=== PATIENT | male | born 1955 | race Caucasian/White ===

== ENCOUNTER 2020-05-07 13:10 | Outpatient (RCR) | payer MEDICAID, SELFPAY | END 2020-05-28 14:48 | disposition home or self-care (01) | LOC: HO.WCC 13:10 | PROVIDERS: Visit Provider Surgery | DX: I87.311 Chronic venous hypertension (idiopathic) with ulcer of right lower extremity (principal); L97.812 Non-pressure chronic ulcer of other part of right lower leg with fat layer exposed; L97.512 Non-pressure chronic ulcer of other part of right foot with fat layer exposed; L03.115 Cellulitis of right lower limb; F14.90 Cocaine use, unspecified, uncomplicated; F11.10 Opioid abuse, uncomplicated; F17.210 Nicotine dependence, cigarettes, uncomplicated | CPT/HCPCS: 99215 ==

== ENCOUNTER 2020-06-24 22:30 | Inpatient (IN) | payer MEDICAID, SELFPAY ==
[2020-06-24 22:33] VITALS: BP 145/71; PULSE 100; RESP 16; TEMP 37; O2SAT 98; BMI 26.6
[2020-06-25] VITALS (7 sets, daily range): BP systolic 109–141; BP diastolic 53–77; PULSE 68–80; RESP 14–20; TEMP 36.8–37.6; O2SAT 95–100
--- NOTE | 2020-06-25 00:42 | XR_ITS ---
EXAMINATION: XR TIBIA AND FIBULA, RIGHT CLINICAL INFORMATION: Skin ulcer COMPARISON: 02/28/2020 TECHNIQUE: AP and lateral views of the right tibia and fibula were obtained. FINDINGS: Osseous alignment is anatomic. No acute fracture is seen. Posterior calcaneal spur is noted. There is subcutaneous edema/reticulation throughout the lower leg. There is suggestion of a skin defect anteriorly at the level of the mid to distal tibia. XR/XR tibia fibula RT 2V IMPRESSION: No acute osseous findings. Soft tissue edema of the lower leg. Suggestion of skin ulceration anteriorly at the level of the mid to distal tibia.
--- NOTE | 2020-06-25 01:09 | ED.EXTPRO ---
HPI - Extremity Problem General Chief complaint: Wound/Laceration Stated complaint: ?Foot infection Time Seen by Provider: 06/25/20 00:42 Source: patient Mode of arrival: ambulatory Limitations: no limitations History of Present Illness HPI Narrative: This is a 64-year-old male who presents with chronic right lower extremity swelling with ulcer that he states was evaluated at [facility] today and was instructed to be further evaluated in the emergency department. Patient states that he is IVDA but denies any diabetes. Otherwise, he denies fevers, chills, shortness of breath, chest pain / palpitations, GI symptoms, or symptoms. In addition, patient states he was seen at [facility] last week and admitted for this problem but signed out AMA due to inability to get a methadone prescription. Related Data Home Medications Medication Instructions Recorded Confirmed fluoxetine [Prozac] 10 mg PO DAILY 06/25/20 06/25/20 Allergies Allergy/AdvReac Type Severity Reaction Status Date / Time trazodone [TRAZODONE] Allergy Intermediate RESTLESS Verified 06/25/20 05:20 LEGS trazadone Allergy Unknown leg spasms Uncoded 06/25/20 05:20 Review of Systems Review of Systems: Pertinent positives and negatives as stated in HPI 10 point review systems is otherwise negative. PMFSH Past Medical History Source: nursing notes reviewed Medical History Cirrhosis Depression Edema Heart murmur Social History Social History Alcohol intake: never Smoking Status: Never smoker Use of substances other than those prescribed or required for medical reasons: Yes Substance Use Type: Heroin Advance Directives: No Advance Directives Information Provided: No Physical Exam Vital Signs: Vital Signs: Last Vital Signs Temp 98.6 F 06/25/20 05:17 Pulse 73 06/25/20 05:17 Resp 14 06/25/20 05:17 BP 141/77 H 06/25/20 05:17 Pulse Ox 100 06/25/20 05:17 Body Mass Index 26.6 VITAL SIGNS: Reviewed. GENERAL: Well developed, well nourished, in no acute distress. HEAD: Normocephalic/atraumatic, EYES: PERRLA, EOMI intact without pain, no nystagmus/pallor/icterus noted EARS: Ext canals without abnormality, TMs non-bulging and non-erythematous NOSE: Nares patent bilateral OROPHARYNX: no oral lesions noted, posterior pharynx clear and non-erythematous without noted tonsillar enlargement/erythema/exudates NECK: Supple, no adenopathy LUNGS: Normal breath sounds. No adventitious sounds or accessory muscle use. SpO2<98> CARDIOVASCULAR: Regular rate and rhythm without noted murmurs, no JVD ABDOMEN: Soft, non-tender, non-distended with bowel sounds. No rigidity. No guarding. No palpable masses or hernias noted MUSCULOSKELETAL: No tenderness, deformities, or effusions noted on gross inspection. EXTREMITIES: No cyanosis, clubbing or edema;RLE: edematous and swollen leg with discoloration and ulcerations along the lower half that are oozing to include with blood and nonpitting edema appearance and palpation concerning for possible gangrenous features. SKIN: Inspection of the skin reveals no rashes, ulcerations, jaundice, pallor, or petechiae. NEUROLOGIC: Alert and oriented x 4. Strength and sensation to light touch were grossly intact x 4. Course Course Course Narrative: This is a 64-year-old male with history and clinical presentation consistent with venous stasis ulcer and concerning features for progression to possible osteo versus gangrenous. On review of all laboratory investigations there is no evidence of systemic infection, however blood cultures are still pending. Patient has a chronically stable anemia and urinalysis is without acute findings. Lactic acid - 1.0. extremity x-ray negative for evidence soft tissue air and no gross indication of bony involvement. Although no objective evidence of systemic infection clinically this right lower extremity is unlikely to improve without IV antibiotics and dual antibiotics were ordered here in the emergency department and this case was discussed with the inpatient hospitalist who is agreeable for admission as cellulitis with gangrenous features. MDM - Extremity (Nontraumatic) Lab Data Result diagrams: 06/25/20 01:16 06/25/20 02:23 Labs: Lab Results 06/25/20 06/25/20 06/25/20 Range/Units 01:16 01:16 01:16 WBC 9.1 (4.8-10.8) X10*3/uL RBC 3.72 L (4.60-5.80) X10*6/uL Hgb 9.7 L (14.0-18.0) g/dl Hct 30.6 L (42-52) % MCV 82.3 (80-98) fL MCH 26.1 L (27.0-33.0) pg MCHC 31.7 (31.0-36.0) g/dl RDW 15.4 (11.0-16.0) % Plt Count 191 (160-400) X10*3/uL MPV 10.2 (9.4-12.4) fL Immature Gran % (Auto) 0.3 (0.0-0.4) % Neut % (Auto) 61.3 (45-73) % Lymph % (Auto) 18.1 L (20-40) % [place] % (Auto) 14.1 H (2-11) % Eos % (Auto) 5.7 H (0-4) % Baso % (Auto) 0.5 (0-2) % Lymph # (Auto) 1.7 (1.2-4.9) X10*3/uL [place] # (Auto) 1.3 H (0.1-1.2) X10*3/uL Eos # (Auto) 0.5 H (0.0-0.4) X10*3/uL Baso # (Auto) 0.1 (0.0-0.2) X10*3/uL Abs Immat Gran (auto) 0.03 (0.00-0.03) X10*3/uL Absolute Neuts (auto) 5.6 (2.0-8.3) X10*3/uL Absolute Nucleated RBC 0.000 (0.0-0.012) X10*3/uL Nucleated RBC % (auto) 0.0 (0.0-0.2) /100WBC Sodium Cancelled Potassium Cancelled Chloride Cancelled Carbon Dioxide Cancelled Anion Gap Cancelled BUN Cancelled Creatinine Cancelled Estim Creat Clear Calc Cancelled Estimated GFR Cancelled Random Glucose Cancelled Lactic Acid 1.0 (0.5-2.0) mmol/L Calcium Cancelled Total Bilirubin Cancelled AST Cancelled ALT Cancelled Alkaline Phosphatase Cancelled Total Protein Cancelled Albumin Cancelled Urine Color Urine Appearance Urine pH (5.0-8.0) Ur Specific [place] (1.005-1.025) Urine Protein (NEG-TRACE) MG/DL Urine Glucose (UA) (NEG) MG/DL Urine Ketones (NEG) MG/DL Urine Blood (NEG) Urine Nitrite (NEG) Ur Leukocyte Esterase (NEG) 06/25/20 06/25/20 Range/Units 02:23 02:23 WBC (4.8-10.8) X10*3/uL RBC (4.60-5.80) X10*6/uL Hgb (14.0-18.0) g/dl Hct (42-52) % MCV (80-98) fL MCH (27.0-33.0) pg MCHC (31.0-36.0) g/dl RDW (11.0-16.0) % Plt Count (160-400) X10*3/uL MPV (9.4-12.4) fL Immature Gran % (Auto) (0.0-0.4) % Neut % (Auto) (45-73) % Lymph % (Auto) (20-40) % [place] % (Auto) (2-11) % Eos % (Auto) (0-4) % Baso % (Auto) (0-2) % Lymph # (Auto) (1.2-4.9) X10*3/uL [place] # (Auto) (0.1-1.2) X10*3/uL Eos # (Auto) (0.0-0.4) X10*3/uL Baso # (Auto) (0.0-0.2) X10*3/uL Abs Immat Gran (auto) (0.00-0.03) X10*3/uL Absolute Neuts (auto) (2.0-8.3) X10*3/uL Absolute Nucleated RBC (0.0-0.012) X10*3/uL Nucleated RBC % (auto) (0.0-0.2) /100WBC Sodium 135 Potassium 4.4 Chloride 102 Carbon Dioxide 26 Anion Gap 11 L BUN 17 H Creatinine 0.91 Estim Creat Clear Calc 83.0 Estimated GFR > 60 Random Glucose 92 Lactic Acid (0.5-2.0) mmol/L Calcium 8.1 L Total Bilirubin 0.7 AST 42 H ALT 26 Alkaline Phosphatase 111 Total Protein 7.3 Albumin 2.8 L Urine Color YELLOW Urine Appearance CLEAR Urine pH 6.0 (5.0-8.0) Ur Specific [place] 1.025 (1.005-1.025) Urine Protein NEG (NEG-TRACE) MG/DL Urine Glucose (UA) NEG (NEG) MG/DL Urine Ketones NEG (NEG) MG/DL Urine Blood NEG (NEG) Urine Nitrite NEG (NEG) Ur Leukocyte Esterase NEG (NEG) Discharge Plan Discharge Clinical Impression: Gangrene Venous stasis ulcer Qualifiers: Venous stasis ulcer site: other part of lower leg Varicose vein presence: without varicose veins Laterality: right Non-pressure ulcer stage: with fat layer exposed Qualified Code(s): I87.2 - Venous insufficiency (chronic) (peripheral) Patient Disposition: Admitted As Inpatient
[2020-06-25 01:24] LABS: Basophils Absolute Auto 0.1 X10*3/uL (0.0-0.2); Basophils Percent Auto 0.5 % (0-2); Eosinophils Absolute Auto 0.5 X10*3/uL (0.0-0.4); Eosinophils Percent Auto 5.7 % (0-4); Hematocrit 30.6 % (42-52); Hemoglobin 9.7 g/dl (14.0-18.0); Imm Gran Abs Auto 0.03 X10*3/uL (0.00-0.03); Imm Gran Pct Auto 0.3 % (0.0-0.4); Lymphocytes Absolute Auto 1.7 X10*3/uL (1.2-4.9); Lymphocytes Percent Auto 18.1 % (20-40); MANUAL DIFF FLAG NO; Mean Corpuscular HGB Conc 31.7 g/dl (31.0-36.0); Mean Corpuscular Hemoglobin 26.1 pg (27.0-33.0); Mean Corpuscular Volume 82.3 fL (80-98); Mean Platelet Volume 10.2 fL (9.4-12.4); Monocytes Absolute Auto 1.3 X10*3/uL (0.1-1.2); Monocytes Percent Auto 14.1 % (2-11); Neutrophils Absolute Auto 5.6 X10*3/uL (2.0-8.3); Neutrophils Percent Auto 61.3 % (45-73); Platelet Count 191 X10*3/uL (160-400); Red Blood Count 3.72 X10*6/uL (4.60-5.80); Red Cell Distribution Width 15.4 % (11.0-16.0); White Blood Count 9.1 X10*3/uL (4.8-10.8)
[2020-06-25 02:34] LABS: Appearance Urine CLEAR; Color Urine YELLOW; Glucose Urine UA NEG (NEG); Leukocyte Esterase Urine NEG (NEG); Nitrite Urine NEG (NEG); Specific Gravity - Urine 1.025 (1.005-1.025); Urine Blood NEG (NEG); Urine Ketones NEG (NEG); Urine Protein NEG (NEG-TRACE)
[2020-06-25 02:58] LABS: Alanine Aminotransferase 26 U/L (0-40); Albumin Level 2.8 g/dL (3.5-5.0); Alkaline Phosphatase 111 U/L (39-117); Anion Gap 11 (12-20); Aspartate Amino Transferase 42 U/L (5-37); Bilirubin Total 0.7 mg/dL (0.0-1.0); Blood Urea Nitrogen 17 mg/dL (9-16); Calcium 8.1 mg/dL (8.4-10.2); Carbon Dioxide 26 mmol/L (22-29); Chloride 102 mmol/L (96-108); Estimated Glomerular Filt Rate > 60; Glucose Random 92 mg/dL (60-115); Potassium 4.4 mmol/l (3.3-5.1); Sodium 135 mmol/L (135-145); Total Protein 7.3 g/dL (6.5-8.0)
[2020-06-25] MEDS: Piperacillin Sodium/Tazobactam 3.375 GM in 0.9 % Sodium Chloride 50 ML IV (05:18)
[2020-06-25] MEDS: vancomycin HCL 1,000 MG in 0.9 % Sodium Chloride 250 ML 270 MG IV (05:49)
[2020-06-25 06:11] LABS: COVID-19 Test Negative (Negative); IDNOW Serial# 9DD0AD1C
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
[2020-06-25 11:41] LABS: Erythrocyte Sedimentation Rate 44 MM/HR (0-15)
--- NOTE | 2020-06-25 14:17 | PC.NURSE ---
sergo tian at bedside earlier. pt awaiting lunch and admission
--- NOTE | 2020-06-25 15:00 | PM.EVENT ---
Event Note Date of Service: 06/25/20 Event Note: Full consult dictated. arterial testing ordered. Will follow with you
--- NOTE | 2020-06-25 15:19 | PC.NURSE ---
PT TO BATHROOM AND BACK VIA WC
--- NOTE | 2020-06-25 16:02 | PC.NURSE ---
called for report to s3
--- NOTE | 2020-06-25 16:16 | P.EN_ITS ---
Event Note Date of Service: 06/26/20 Event Note: Patient seen and examined. Patient has recent staff was years bacteremia [facility] and he left from the with his son of linezolid did not fill up: Currently coming in with neg ulcer? Patient says most likely chronic from last 2 years Accept from that patient denies any chest pain or shortness of breath or abdominal pain or fever or chills or cough or phlegm or urinary complaints Lab imaging reviewed physiio: Cvs: [id number], [id number] , no murmur res: clear to auscultation ,no rhonchii or wheezing abd: no rebound or guarding ,nt, bs present. ext right lower leg ulcer area seems mostly dry , no discharge ,rom intact neuro: axo3 , nonfocal. Assessment and plan: Patient had bacteremia recently: Will start the patient on IV Vanco Vanco trough Id and wound care evaluation In addition patient is a cocaine user: He is considering to start methadone, we will add psych evaluation for methadone use. Urine drug screen and EKG added is since patient is asking for methadone use
--- NOTE | 2020-06-25 16:25 | ECG_ITS ---
Test Reason : MED CLEARANCE Blood Pressure : / mmHG Vent. Rate : 065 BPM Atrial Rate : 065 BPM P-R Int : 172 ms QRS Dur : 086 ms QT Int : 436 ms P-R-T Axes : 041 020 020 degrees QTc Int : 453 ms Normal sinus rhythm Normal ECG When compared with ECG of 13-FEB-2019 11:52, Premature atrial complexes are no longer Present T wave amplitude has decreased in Anterior leads Referred By: Sanya Mendoza Electronically Signed By:JOE DURAN MD
--- NOTE | 2020-06-25 16:25 | PC.NURSE ---
report given to s3
--- NOTE | 2020-06-25 17:03 | P.CNPS_ITS ---
History of Present Illness Date of Service: 06/25/2020 Chief Complaint: RLE wound Reason for Consult: Addiction consult Requesting physician: Sanya Mendoza Discussed with referring provider: Yes Sources of Information: patient interviewed and chart reviewed HPI Narrative: Patient is a 64 year old male with opioid use disorder currently in ED awaiting medical admission for treatment of foot ulcer. Per patient report he was recently admitted to [facility] and left AMA due to opioid withdrawal sx. Pt seen in room 10 of main ED. Awake, alert, pleasant, engaged in interview. Pt reports currently using 3-4 bags of heroin QD IV, significant decrease from 3 bundles, which is what he was using before. Reports cocaine use as well. Denies any ETOH or benzodiazepine use . Pt verbalizing that he wishes to stay on methadone maintenance, reports suboxone has not been as efective in maintaining his recovery in the past. He has been a patient at [facility] and highest dose reported was 20-25mg daily Review of Systems Constitutional: Reports body ache(s) Gastrointestinal: Denies diarrhea, Denies loose stools, Reports nausea and Denies vomiting Psychiatric: Reports anxiety, Reports depression, Reports hopelessness and Denies suicidal ideation [facility] Medical History (Updated 06/25/20 @ 16:59 by Anita Moran CNP) Anemia Chronic cutaneous venous stasis ulcer Cirrhosis Depression Hepatitis C Polysubstance abuse Tobacco dependence Surgical History (Updated 06/25/20 @ 10:36 by JESSICA Nunez) H/O hernia repair Social History: Rents a room in a house. Has a dog named Maranda who he is very fond of and identifies her as his motivation to get better. Diagnostics Vital Signs (24Hr): Vital Signs - 24 hr 06/24/20 22:33 06/25/20 02:23 06/25/20 05:17 Temperature 98.6 F 98.6 F Pulse Rate 100 74 73 Respiratory Rate 16 16 14 Blood Pressure 145/71 H 139/73 141/77 H Pulse Oximetry 98 100 100 06/25/20 07:17 06/25/20 14:47 Temperature Pulse Rate 72 Respiratory Rate 18 16 Blood Pressure 113/66 Pulse Oximetry 97 Body Mass Index 26.6 Labs Results: 06/25/20 01:16 06/25/20 02:23 Labs: Laboratory Results - last 48 hr 06/25/20 06/25/2020 01:16 01:16 01:16 WBC 9.1 RBC 3.72 L Hgb 9.7 L Hct 30.6 L MCV 82.3 MCH 26.1 L MCHC 31.7 RDW 15.4 Plt Count 191 MPV 10.2 Immature Gran % (Auto) 0.3 Neut % (Auto) 61.3 Lymph % (Auto) 18.1 L Steele % (Auto) 14.1 H Eos % (Auto) 5.7 H Baso % (Auto) 0.5 Lymph # (Auto) 1.7 Steele # (Auto) 1.3 H Eos # (Auto) 0.5 H Baso # (Auto) 0.1 Abs Immat Gran (auto) 0.03 Absolute Neuts (auto) 5.6 Absolute Nucleated RBC 0.000 Nucleated RBC % (auto) 0.0 ESR Sodium Cancelled Potassium Cancelled Chloride Cancelled Carbon Dioxide Cancelled Anion Gap Cancelled BUN Cancelled Creatinine Cancelled Estim Creat Clear Calc Cancelled Estimated GFR Cancelled Random Glucose Cancelled Lactic Acid 1.0 Calcium Cancelled Total Bilirubin Cancelled AST Cancelled ALT Cancelled Alkaline Phosphatase Cancelled C-Reactive Protein Total Protein Cancelled Albumin Cancelled Urine Color Urine Appearance Urine pH Ur Specific Mohler Urine Protein Urine Glucose (UA) Urine Ketones Urine Blood Urine Nitrite Ur Leukocyte Esterase COVID-19 ([facility]) COVID-19 Clin Com 06/25/20 06/25/20 06/25/20 01:34 02:23 02:23 WBC RBC Hgb Hct MCV MCH MCHC RDW Plt Count MPV Immature Gran % (Auto) Neut % (Auto) Lymph % (Auto) Steele % (Auto) Eos % (Auto) Baso % (Auto) Lymph # (Auto) Steele # (Auto) Eos # (Auto) Baso # (Auto) Abs Immat Gran (auto) Absolute Neuts (auto) Absolute Nucleated RBC Nucleated RBC % (auto) ESR 44 H Sodium 135 Potassium 4.4 Chloride 102 Carbon Dioxide 26 Anion Gap 11 L BUN 17 H Creatinine 0.91 Estim Creat Clear Calc 83.0 Estimated GFR > 60 Random Glucose 92 Lactic Acid Calcium 8.1 L Total Bilirubin 0.7 AST 42 H ALT 26 Alkaline Phosphatase 111 C-Reactive Protein 2.80 H Total Protein 7.3 Albumin 2.8 L Urine Color YELLOW Urine Appearance CLEAR Urine pH 6.0 Ur Specific Mohler 1.025 Urine Protein NEG Urine Glucose (UA) NEG Urine Ketones NEG Urine Blood NEG Urine Nitrite NEG Ur Leukocyte Esterase NEG COVID-19 (JACQUE) COVID-19 Clin Com 06/25/20 05:52 WBC RBC Hgb Hct MCV MCH MCHC RDW Plt Count MPV Immature Gran % (Auto) Neut % (Auto) Lymph % (Auto) Steele % (Auto) Eos % (Auto) Baso % (Auto) Lymph # (Auto) Steele # (Auto) Eos # (Auto) Baso # (Auto) Abs Immat Gran (auto) Absolute Neuts (auto) Absolute Nucleated RBC Nucleated RBC % (auto) ESR Sodium Potassium Chloride Carbon Dioxide Anion Gap BUN Creatinine Estim Creat Clear Calc Estimated GFR Random Glucose Lactic Acid Calcium Total Bilirubin AST ALT Alkaline Phosphatase C-Reactive Protein Total Protein Albumin Urine Color Urine Appearance Urine pH Ur Specific Mohler Urine Protein Urine Glucose (UA) Urine Ketones Urine Blood Urine Nitrite Ur Leukocyte Esterase COVID-19 (JACQUE) Negative COVID-19 Clin Com See Note Imaging Radiology Impressions: ITS Impressions Tibia/Fibula X-Ray 06/25/20 00:42 IMPRESSION: No acute osseous findings. Soft tissue edema of the lower leg. Suggestion of skin ulceration anteriorly at the level of the mid to distal tibia. Mental Status Exam Mental Status Exam Patient Appearance: Appropriate Patient Orientation: Person, Place, Time and Situation Level of Consciousness: Awake Patient Behavior: Appropriate, Cooperative, Anxious and Crying Mood Description: Sad and Nervous Affect Description: Sad and Nervous Ability to Follow Directions: Excellent Speech Pattern: Clear Thought Process: Intact and Goal Oriented Thought Content: positive for Intact and positive for Logical Depressive Symptoms: Increased Anxiety, Hopelessness, Feelings of Guilt and Unhappiness Judgement: Fair Medications Medications Current Medications Generic Name Dose Route Start Last Admin Trade Name Freq PRN Reason Stop Dose Admin Pharmacy Consult 1 each 06/25/20 10:25 Consult Rx Vancomycin Dosing MISCELLANE DAILY PRN Consult order Allergies Allergies Allergy/AdvReac Type Severity Reaction Status Date / Time trazodone [TRAZODONE] Allergy Intermediate RESTLESS Verified 06/25/20 05:20 LEGS trazadone Allergy Unknown leg spasms Uncoded 06/25/20 05:20 Assessment & Plan Assessment & Plan (1) Opioid use disorder: Status: Acute Code(s): F11.99 - Opioid use, unspecified with unspecified opioid-induced disorder Recommendations: * Pt in mild withdrawal when seen by this teletypewriter operator. * EKG and UDS ordered. EKG reviewed, UDS to be completed * 20mg methadone ordered * Recovery Brim Buster to follow up tomorrow morning to begin process for OTP admission following discharge (based on H&P, appears will likely require SNF short term for IV Abx) Greater than 50% of the session was spent on counseling and/or coordination of care
[2020-06-25 17:06] LABS: Amphetamine Screen Urine Not Detected (Not Detect); Barbiturates, Urine Not Detected (Not Detect); Benzodiazepines Screen Urine Not Detected (Not Detect); Cannabinoid Screen Urine Not Detected (Not Detect); Cocaine Screen Urine POSITIVE (Not Detect); Opiate Screen Urine POSITIVE (Not Detect); Phencyclidine Screen Urine Not Detected (Not Detect)
[2020-06-25] MEDS: Enoxaparin Sodium 40 MG/0.4 ML SYRINGE SUBCUT (18:05)
[2020-06-25] MEDS: 0.9 % Sodium Chloride Flush 3 ML SYRINGE IVFLUSH ×2 (18:24→23:14)
--- NOTE | 2020-06-25 22:33 | CONS_ITS ---
DATE OF SERVICE: 06/25/2020 REASON FOR CONSULTATION: Nonhealing chronic right lower extremity ulcer. HISTORY OF PRESENT ILLNESS: This is a 64-year-old gentleman, who was originally treated at [facility] from June 12 through the for a treatment MRSA of the right lower extremity and wound care. Initial plan was to have him discharged for treatment of IV vancomycin at a facility, but the patient subsequently left AMA. He was given a prescription for linezolid, it was too expensive for him to obtain. He was subsequently at home reported that his leg was getting worse, came back to our institution. He now presents to us for vascular evaluation. PAST MEDICAL HISTORY: Includes chronic nonhealing right lower extremity ulcer, cirrhosis, depression, hep C, and anemia. PAST SURGICAL HISTORY: None significant. MEDICATIONS: Medication list was reviewed per nursing MAR. ALLERGIES: HE HAS NO KNOWN DRUG ALLERGIES. SOCIAL HISTORY: Smokes. He reports 2 cigarettes a day, I suspect it is significantly more than that; nondrinker, but he does admit to polysubstance abuse including crack cocaine and heroin. FAMILY HISTORY: No history of advanced coronary artery disease or peripheral vascular disease. REVIEW OF SYSTEMS: 13-point review was performed, at the current time denies any headache, dizziness, nausea, vomiting, diarrhea, or shortness of breath. He notes some mild discomfort of the right lower extremity, but no significant pain. Rest of the 13-point review of systems was essentially negative. PHYSICAL EXAMINATION: VITAL SIGNS: Temperature of 98.6, pulse of 73, respiration rate of 18, blood pressure of 141/77, and saturating 100%. HEAD AND NECK: Demonstrates no bruits. CHEST: Moving air bilaterally. CARDIAC: Positive S1-S2. ABDOMEN: Soft. EXTREMITIES: Upper extremities have good radial and ulnar pulses. Lower extremities, I am able to appreciate a left lower extremity DP pulse. Right side, I was unable to appreciate a DP or PT pulse. NEUROLOGIC: II through XII grossly intact. PSYCH: Mood and affect appear within normal limits. SKIN: Right pretibial ulceration, it is a large excoriated area encompassing the entire pretibial surface. PSYCH: Mood and affect appear within normal limits. LABORATORY DATA: Last white count of 9.1. Rest of the labs appear to be within normal limits. IMPRESSION: Nonhealing right lower extremity ulcer. Unclear what the true etiology of this is. He reports that it has something to do with his circulation. When directly asked whether he had seen a vascular surgeon before, he denied seeing anybody. He does report that this has been over 2 years. Due to the lack of palpable pulses on that right lower extremity, I have taken the liberty of ordering noninvasive arterial testing. At the current time, would recommend continued local wound care. In addition, we will follow up on arterial testing and will need close monitoring for withdrawal from polysubstance abuse. Thank you for allowing us to participate in his care. If you have any questions or concerns, please do not hesitate to contact us. MD BROOKE Garcia/ABUNDIO / [phone]
--- NOTE | 2020-06-26 | US_ITS ---
EXAMINATION: NONINVASIVE ASSESSMENT OF THE ARTERIES OF BOTH LOWER EXTREMITIES WITH PVR EXAM AND BILATERAL LOWER EXTREMITY DUPLEX CLINICAL INFORMATION: Right leg ulcer TECHNIQUE: duplex Doppler techniques with wave form analysis and measurement of velocities in the common femoral, profunda femoral, superficial femoral, popliteal and tibial arteries of the right lower extremity. The study was performed only at rest. Patient refused ankle-brachial indices exam. COMPARISON: None FINDINGS: a) AT REST: RIGHT LEG: .Right direct duplex Doppler findings: Vessels appear prominent suggestive questionable for arteria magna. No visible stenosis is seen. * Common femoral artery: 142 cm/s, Diastolic flow reversal: Yes * Superficial femoral artery (proximal, mid, distal): 160, 186 and 152 cm/s, Diastolic flow reversal: No * Popliteal artery: 178 cm/s, Diastolic flow reversal: No * Posterior tibial artery: 121 cm/s, Diastolic flow reversal: No The visualized profunda and peroneal arteries are patent. * US/US arterial duplex LE BI IMPRESSION: No evidence of significant stenosis. There is loss of triphasic flow distal to the common femoral artery.
[2020-06-26 03:31] VITALS: BP 106/51; PULSE 70; RESP 19; TEMP 37.1; O2SAT 96
[2020-06-26 06:10] LABS: MANUAL DIFF FLAG NO
[2020-06-26 06:15] LABS: Basophils Absolute Auto 0.1 X10*3/uL (0.0-0.2); Basophils Percent Auto 0.6 % (0-2); Eosinophils Absolute Auto 0.7 X10*3/uL (0.0-0.4); Eosinophils Percent Auto 6.7 % (0-4); Hematocrit 31.4 % (42-52); Hemoglobin 9.9 g/dl (14.0-18.0); Imm Gran Abs Auto 0.05 X10*3/uL (0.00-0.03); Imm Gran Pct Auto 0.5 % (0.0-0.4); Lymphocytes Absolute Auto 2.1 X10*3/uL (1.2-4.9); Lymphocytes Percent Auto 21.7 % (20-40); Mean Corpuscular HGB Conc 31.5 g/dl (31.0-36.0); Mean Corpuscular Hemoglobin 25.8 pg (27.0-33.0); Mean Corpuscular Volume 81.8 fL (80-98); Mean Platelet Volume 9.9 fL (9.4-12.4); Monocytes Absolute Auto 1.3 X10*3/uL (0.1-1.2); Neutrophils Absolute Auto 5.7 X10*3/uL (2.0-8.3); Neutrophils Percent Auto 57.5 % (45-73); Platelet Count 186 X10*3/uL (160-400); Red Blood Count 3.84 X10*6/uL (4.60-5.80); Red Cell Distribution Width 15.6 % (11.0-16.0); White Blood Count 9.9 X10*3/uL (4.8-10.8)
[2020-06-26 06:43] LABS: Anion Gap 9 (12-20); Blood Urea Nitrogen 20 mg/dL (9-16); Calcium 7.5 mg/dL (8.4-10.2); Carbon Dioxide 26 mmol/L (22-29); Chloride 107 mmol/L (96-108); Creatinine Clr Calc Pharmacy 87.9; Estimated Glomerular Filt Rate > 60; Glucose Random 106 mg/dL (60-115); Potassium 4.1 mmol/l (3.3-5.1); Sodium 138 mmol/L (135-145)
[2020-06-26 07:47] VITALS: BP 116/60; PULSE 73; RESP 17; TEMP 36.7; O2SAT 97
--- NOTE | 2020-06-26 09:08 | HO.VASCPN ---
Subjective Subjective Patient reports: no new complaints Interval history: Patient is hospital day 1 for nonhealing right lower extremity ulceration. He had no events overnight. States that he feels somewhat better. At the time of my assessment he was on his way down for arterial ultrasound. Physical Exam Vital Signs: Vital Signs: Last Vital Signs Temp 98.1 F 06/26/20 07:47 Pulse 73 06/26/20 07:47 Resp 17 06/26/20 07:47 BP 116/60 06/26/20 07:47 Pulse Ox 97 06/26/20 07:47 Body Mass Index 26.6 Const: General: cooperative, healthy appearing and no acute distress Orientation/consciousness: oriented to person, oriented to place and oriented to time HENMT: Head: Yes normal to inspection Neck: Carotids: no bruits Chest: Chest palpation & inspection: normal inspection of the chest Resp: Effort & Inspection: normal respiratory effort and able to speak in complete sentences Auscultation: clear to auscultation bilaterally Cardio: Rate: regular rate Heart sounds: S1 normal heart sound present and S2 normal heart sound present GI: Inspection: Yes normal to inspection Skin: General skin exam: no rashes or lesions noted Wounds: wounds noted (Right pretibial surface and calf, multiple open areas) Neuro: General: oriented to person, oriented to place, oriented to time and CN's II-XI intact bilaterally Extrem: General: Yes normal to inspection, Yes full ROM and Yes no clubbing, cyanosis or edema Psych: Appearance: grossly normal and well kempt Speech and movement: Normal speech and movement present Affect: normal affect Progress Note: A&P Assessment and plan (1) Venous stasis ulcer: Status: Acute Assessment and Plan: Unclear if this is truly venous stasis or multifactorial. Await arterial testing. At the current time would continue with local wound care, and antibiotic regimen of vancomycin. We will monitor his status with you. Thank you for allowing us to assist in his care. If there are any questions or concerns please do not hesitate to contact us. Fall Risk Details Current Medications: Current Medications Generic Name Dose Route Start Last Admin Trade Name Freq PRN Reason Stop Dose Admin Acetaminophen 650 mg 06/25/20 16:47 Acetaminophen 325 Mg Tablet PO Q6H PRN Pain, Mild (Pain Scale 1-3) Clonidine HCl 0.1 mg 06/25/20 16:47 Clonidine Hcl 0.1 Mg Tablet PO TID PRN anxiety/restlessness Protocol Docusate Sodium 100 mg 06/25/20 16:47 Docusate Sodium 100 Mg Capsule PO DAILY PRN Constipation Enoxaparin Sodium 40 mg 06/25/20 18:00 06/25/20 18:05 Enoxaparin Sodium 40 Mg/0.4 Ml Syringe SUBCUT 40 mg Q24H DAVID Administration Fluoxetine HCl 10 mg 06/26/20 09:00 Fluoxetine Hcl 10 Mg Capsule PO DAILY DAVID Vancomycin HCl 750 mg/ 275 mls @ 183.333 mls/hr 06/25/20 19:00 06/26/20 06:31 Vancomycin HCl 500 mg/ Sodium IV 183.33 mls/hr Chloride Q12H DAVID Administration Methadone HCl 20 mg 06/25/20 16:50 06/25/20 18:24 Methadone Hcl 1 Mg/0.1 Ml Oral.Conc PO 20 mg DAILY DAVID Administration Nicotine Polacrilex 2 mg 06/25/20 16:47 Nicotine Polacrilex 2 Mg Gum BUCCAL Q2H PRN Nicotine Cravings Ondansetron HCl 4 mg 06/25/20 16:47 Ondansetron Hcl 4 Mg/2 Ml Vial IVPUSH Q8H PRN Nausea and Vomiting Pharmacy Consult 1 each 06/25/20 10:25 Consult Rx Vancomycin Dosing MISCELLANE DAILY PRN Consult order Sodium Chloride 3 ml 06/25/20 16:47 06/25/20 23:14 0.9 % Sodium Chloride Flush 3 Ml Syringe IVFLUSH 3 ml QSHIFT DAVID Administration Time Spent With Patient Time: Total time spent is greater than 50% in coordination of care (as documented) at patient's floor/unit and/or counseling patient: Time with patient: 15 - 24 minutes Procedures Abscess I/D Date of Service: 06/26/20
[2020-06-26] MEDS: FLUoxetine HCl 10 MG CAPSULE PO (09:47)
--- NOTE | 2020-06-26 10:06 | MHC.CM.PN ---
CM met with Patient. Patient lives alone in an apartment and he uses a walker to assist with mobility. Patient's goal for dc is STR in a [place] or [place] area SNF VS home with a new referral to [facility]. CM has initiated and will follow for dc planning. Patient's PCP is Dr. Ana Vasquez at [facility] and his Sister/Lilian is his HCP.
--- NOTE | 2020-06-26 10:57 | MHC.CARE ---
Recovery Support note: Patient is a 64 year old Slovenian speaking male who presented to [facility] due to a non-healing wound and was medically admitted. Patient reports he left AMA from [facility] recently due to withdrawal and not being able to receive Methadone. Patient has been re-started on Methadone. Patient is interested in continuing Methadone after he discharges. Patient has previously received Methadone through [facility] and he is requesting that he continues to get it through [facility] after discharge. Patient has signed a release and his information has been sent to [facility]. [facility] reports that this patient is able to continue services with them. Patient will need to complete an intake over the phone as he gets closer to discharge. Patient will also need an in person medication appointment. This auto service writer will follow up with patient and [facility] as patient gets closer to discharge to assist in coordinating this process.
[2020-06-26 11:43] VITALS: BP 101/65; PULSE 71; RESP 18; TEMP 37.1; O2SAT 96
--- NOTE | 2020-06-26 15:18 | W.PM.IDCN ---
History of Present Illness Data of Consult Service Date: 06/26/20 Requesting physician: Sanya Mendoza Primary Care Provider: Unknown Physician HPI Reason for consult: RLE erythema He presents with redness RLE as well as swelling increased over last two days He saw his PCP and was told he would have to go to ER He came to ER and was started on IV Vancomycin He has had improvement He mentions that he has had redness and swelling for last 3 years He has no fever or chills Review of Systems Review of Systems: Yes all other systems are reviewed and are negative [facility] Past Medical History Medical History Anemia Chronic cutaneous venous stasis ulcer Cirrhosis Depression Hepatitis C Polysubstance abuse Tobacco dependence Functional capacity: uses cane/walker Family History Family History Mother CAD (coronary artery disease) ESRD (end stage renal disease) Brother Liver failure Surgical History Surgical History H/O hernia repair Social History Social History Household Members: None Housing: Other Alcohol intake: former Smoking Status: Current every day smoker Cigarettes Per Day: 2 Second Hand Smoke Exposure: No Substance Use Type: Crack/Cocaine and Heroin service: No Current occupational status: disabled Meds Allergies Allergy/AdvReac Type Severity Reaction Status Date / Time trazodone [TRAZODONE] Allergy Intermediate RESTLESS Verified 06/25/20 05:20 LEGS trazadone Allergy Unknown leg spasms Uncoded 06/25/20 05:20 Home Medications Medication Instructions Recorded Confirmed Type fluoxetine [Prozac] 10 mg PO DAILY 06/25/20 06/25/20 History Physical Exam Vital Signs: Vital Signs: Last Vital Signs Temp 98.7 F 06/26/20 11:43 Pulse 71 06/26/20 11:43 Resp 18 06/26/20 11:43 BP 101/65 06/26/20 11:43 Pulse Ox 96 06/26/20 11:43 Body Mass Index 26.6 Const: General: cooperative HENMT: Head: Yes normal to inspection Ears: hearing grossly normal bilaterally Mouth: Normal oral and palatal mucosa present Eyes: General: appearance normal, both eyes and all related structures Resp: Effort & Inspection: normal respiratory effort Cardio: Rate: regular rate Rhythm: regular rhythm GI: Inspection: Yes normal to inspection Skin: General skin exam: no rashes or lesions noted Extrem: Other: right leg venous stasis changes,resolving erythema Assessment and Plan (1) MRSA bacteremia: Status: Resolved He does not have this at this time (2) Venous stasis ulcer: Qualifiers: Laterality: right Non-pressure ulcer stage: with fat layer exposed Varicose vein presence: without varicose veins Venous stasis ulcer site: other part of lower leg Qualified Code(s): I87.2 - Venous insufficiency (chronic) (peripheral); L97.812 - Non-pressure chronic ulcer of other part of right lower leg with fat layer exposed Status: Acute Would give po Doxycycline finish course 10-14 days Results Labs CBC & Chem 7: 06/28/20 06:54 06/28/20 06:54 Labs: Short CBC 06/26/20 Range/Units 05:54 WBC 9.9 (4.8-10.8) X10*3/uL Hgb 9.9 L (14.0-18.0) g/dl Hct 31.4 L (42-52) % Plt Count 186 (160-400) X10*3/uL BMP 06/26/20 05:54 Sodium 138 Potassium 4.1 Chloride 107 Carbon Dioxide 26 BUN 20 H Creatinine 0.86 Calcium 7.5 L D Microbiology Microbiology Results: Microbiology 06/25/20 02:23 Blood - Venous Blood Culture - Preliminary No growth after 24 hours. 06/25/20 02:23 Blood - Venous Blood Culture - Preliminary No growth after 24 hours.
--- NOTE | 2020-06-26 15:38 | MHC.CARE ---
Recovery Support note: This junior technical writer met with patient to discuss discharge plan and patient's referral to [facility] for Methadone. If patient is discharged Monday, this junior technical writer will call patient on Monday to inform him of how to proceed with getting connected with [facility] for Methadone. Patient reports he has transportation and a cell phone ([phone]). Patient state he understands the plan and will await my call Monday. This junior technical writer awaits a response from [facility] regarding whether patient will need to do a phone intake and if he can get an appointment on Monday. This junior technical writer will fax patients discharge summary and last dose letter on Monday.
[2020-06-26 15:46] VITALS: BP 119/60; PULSE 67; RESP 18; TEMP 36.5; O2SAT 98
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
--- NOTE | 2020-06-26 16:30 | P.EN_ITS ---
Event Note Date of Service: 06/26/20 Event Note: Addiction follow up: * Pt reprots he is feeling very good, slept well * Denies any withdrawal sx * It became known at the end of the day that patient was clear to be discharged home, but by this time it was too late to coordinate with [facility] for intake over the weekend. Pt to [facility] inpt until at least Monday the so that he can continue to recieve methadone until his appt with [facility] on Monday (being coordinated by Darryl JOSÉ) * No change to current dose. * Will require last dose letter upon discharge
--- NOTE | 2020-06-26 16:30 | PM.EVENT ---
Event Note Date of Service: 06/26/20 Event Note: Addiction follow up: Pt reprots he is feeling very good, slept well Denies any withdrawal sx It became known at the end of the day that patient was clear to be discharged home, but by this time it was too late to coordinate with [facility] for intake over the weekend. Pt to [facility] in[facility] until at least Monday the so that he can continue to recieve methadone until his appt with [facility] on Monday (being coordinated by Darryl JOSÉ) No change to current dose. Will require last dose letter upon discharge
--- NOTE | 2020-06-26 18:06 | HO.PM.IMPN ---
Subjective Subjective Date of Service: 06/26/20 Interval History: RIGHT LEG ULCER, cocaine abuse. Review of Systems Denies any chest pain or shortness of breath or abdominal pain or fever or chills or cough or phlegm Denies any urinary complaints. Physical Exam Vital Signs: Vital Signs: Last Vital Signs Temp 97.7 F 06/26/20 15:46 Pulse 67 06/26/20 15:46 Resp 18 06/26/20 15:46 BP 119/60 06/26/20 15:46 Pulse Ox 98 06/26/20 15:46 Body Mass Index 26.6 Physical exam: Cvs: rrr, [id number] , no murmur res: clear to auscultation ,no rhonchii or wheezing abd: no rebound or guarding ,nt, bs present. ext pulses present , no cyanosis A right leg ulcer area seems dry ,no discharge neuro: axo3 , nonfocal. Objective Data Current Medications Generic Name Dose Route Start Last Admin Trade Name Freq PRN Reason Stop Dose Admin Acetaminophen 650 mg 06/25/20 16:47 Acetaminophen 325 Mg Tablet PO Q6H PRN Pain, Mild (Pain Scale 1-3) Clonidine HCl 0.1 mg 06/25/20 16:47 Clonidine Hcl 0.1 Mg Tablet PO TID PRN anxiety/restlessness Protocol Docusate Sodium 100 mg 06/25/20 16:47 Docusate Sodium 100 Mg Capsule PO DAILY PRN Constipation Doxycycline Hyclate 100 mg 06/26/20 18:00 Doxycycline Hyclate 100 Mg Tablet PO Q12H DAVID Enoxaparin Sodium 40 mg 06/25/20 18:00 06/25/20 18:05 Enoxaparin Sodium 40 Mg/0.4 Ml Syringe SUBCUT 40 mg Q24H DAVID Administration Fluoxetine HCl 10 mg 06/26/20 09:00 06/26/20 09:47 Fluoxetine Hcl 10 Mg Capsule PO 10 mg DAILY DAVID Administration Methadone HCl 20 mg 06/25/20 16:50 06/26/20 09:48 Methadone Hcl 1 Mg/0.1 Ml Oral.Conc PO 20 mg DAILY DAVID Administration Nicotine Polacrilex 2 mg 06/25/20 16:47 Nicotine Polacrilex 2 Mg Gum BUCCAL Q2H PRN Nicotine Cravings Ondansetron HCl 4 mg 06/25/20 16:47 Ondansetron Hcl 4 Mg/2 Ml Vial IVPUSH Q8H PRN Nausea and Vomiting Pharmacy Consult 1 each 06/25/20 10:25 Consult Rx Vancomycin Dosing MISCELLANE DAILY PRN Consult order Sodium Chloride 3 ml 06/25/20 16:47 06/26/20 16:30 0.9 % Sodium Chloride Flush 3 Ml Syringe IVFLUSH Not Given QSHIFT DAVID Labs CBC & Chem 7: 06/26/20 05:54 06/26/20 05:54 Microbiology Microbiology Results: Microbiology 06/25/20 02:23 Blood - Venous Blood Culture - Preliminary No growth after 24 hours. 06/25/20 02:23 Blood - Venous Blood Culture - Preliminary No growth after 24 hours. Assessment and Plan (1) Opioid use disorder: Status: Acute (2) Venous stasis ulcer: Status: Acute Assessment and Plan: 64-year-old male with a history of polysubstance abuse, cirrhosis, HCV, chronic right lower extremity venous ulcer, recently admitted to [facility] for MRSA bacteremia who left A on 06/19/2020 who presents with ongoing wound 1.MRSA bacteremia in the setting of IVDU, RLE venous stasis ulcer IV vancomycin (received 7 days of IV vancomycin at [facility] [facility]) with planned duration of 14 days Follow-up blood cultures -prelim negative Please see blood culture sensitivities from [facility] [place] above TTE from [facility] negative for vegetation Since the blood culture negative, id recommended to stop IV antibiotics, and ID recommended p.o. doxycycline for leg wound superficial irritation. 2. RLE venous stasis ulcer No sepsis Discussed with vascular: Arterial duplex seems fine, follow-up with Dr. Birmingham outpatient in 2 weeks. Patient says he goes to wound care clinic here in [place]-patient is to follow-up with wound clinic. 3. polysubstance abuse Seen by Psychiatry Anita Moran patient methadone is being arranged at [place]-which will be arranged around Monday only. 4. anemia: 10 range chronic, H/ H at baseline
[2020-06-26 19:27] LABS: Vancomycin Trough 16.4 mcg/mL (10.0-20.0)
[2020-06-26] MEDS: Enoxaparin Sodium 40 MG/0.4 ML SYRINGE SUBCUT (19:49)
[2020-06-26 19:59] VITALS: BP 129/62; PULSE 73; RESP 18; TEMP 36.6; O2SAT 99
[2020-06-26 23:15] VITALS: BP 132/62; PULSE 62; RESP 18; TEMP 36.1; O2SAT 94
[2020-06-27] MEDS: 0.9 % Sodium Chloride Flush 3 ML SYRINGE IVFLUSH ×3 (00:33→16:15)
[2020-06-27 04:00] VITALS: BP 156/80; PULSE 62; RESP 18; TEMP 36.3; O2SAT 95
[2020-06-27 07:48] VITALS: BP 129/72; PULSE 71; RESP 18; TEMP 36.8; O2SAT 99
[2020-06-27 08:42] LABS: MANUAL DIFF FLAG NO
[2020-06-27 08:59] LABS: Basophils Absolute Auto 0.1 X10*3/uL (0.0-0.2); Basophils Percent Auto 0.6 % (0-2); Eosinophils Absolute Auto 0.8 X10*3/uL (0.0-0.4); Eosinophils Percent Auto 9.3 % (0-4); Hematocrit 31.4 % (42-52); Hemoglobin 9.8 g/dl (14.0-18.0); Imm Gran Abs Auto 0.04 X10*3/uL (0.00-0.03); Imm Gran Pct Auto 0.5 % (0.0-0.4); Lymphocytes Absolute Auto 1.8 X10*3/uL (1.2-4.9); Lymphocytes Percent Auto 22.3 % (20-40); Mean Corpuscular HGB Conc 31.2 g/dl (31.0-36.0); Mean Corpuscular Hemoglobin 25.7 pg (27.0-33.0); Mean Corpuscular Volume 82.2 fL (80-98); Mean Platelet Volume 9.7 fL (9.4-12.4); Monocytes Absolute Auto 0.8 X10*3/uL (0.1-1.2); Monocytes Percent Auto 9.6 % (2-11); Neutrophils Absolute Auto 4.7 X10*3/uL (2.0-8.3); Neutrophils Percent Auto 57.7 % (45-73); Platelet Count 182 X10*3/uL (160-400); Red Blood Count 3.82 X10*6/uL (4.60-5.80); Red Cell Distribution Width 15.7 % (11.0-16.0); White Blood Count 8.2 X10*3/uL (4.8-10.8)
[2020-06-27 09:56] LABS: Anion Gap 8 (12-20); Blood Urea Nitrogen 17 mg/dL (9-16); Carbon Dioxide 25 mmol/L (22-29); Chloride 106 mmol/L (96-108); Estimated Glomerular Filt Rate > 60; Glucose Random 95 mg/dL (60-115); Potassium 3.8 mmol/l (3.3-5.1); Sodium 135 mmol/L (135-145)
[2020-06-27 10:09] LABS: Calcium 7.8 mg/dL (8.4-10.2)
[2020-06-27] MEDS: FLUoxetine HCl 10 MG CAPSULE PO (10:43)
[2020-06-27 11:42] VITALS: BP 110/67; PULSE 70; RESP 16; TEMP 36.9; O2SAT 98
--- NOTE | 2020-06-27 11:53 | P.PNIM_ITS ---
Subjective Subjective Date of Service: 06/27/20 Interval History: patient seen and examined at bedside patient denies any complaint Constitutional Constitutional: Reports weakness Cardiovascular Cardiovascular: Denies chest pain Respiratory Respiratory: Denies dyspnea Neurologic Neurologic: Reports weakness Physical Exam Vital Signs: Vital Signs: Last Vital Signs Temp 98.4 F 06/27/20 11:42 Pulse 70 06/27/20 11:42 Resp 16 06/27/20 11:42 BP 110/67 06/27/20 11:42 Pulse Ox 98 06/27/20 11:42 Body Mass Index 26.6 Const: General: comfortable Resp: Effort & Inspection: normal respiratory effort GI: Inspection: Yes normal to inspection Objective Data Current Medications Generic Name Dose Route Start Last Admin Trade Name Freq PRN Reason Stop Dose Admin Acetaminophen 650 mg 06/25/20 16:47 Acetaminophen 325 Mg Tablet PO Q6H PRN Pain, Mild (Pain Scale 1-3) Clonidine HCl 0.1 mg 06/25/20 16:47 Clonidine Hcl 0.1 Mg Tablet PO TID PRN anxiety/restlessness Protocol Docusate Sodium 100 mg 06/25/20 16:47 Docusate Sodium 100 Mg Capsule PO DAILY PRN Constipation Doxycycline Hyclate 100 mg 06/26/20 18:00 06/27/20 06:04 Doxycycline Hyclate 100 Mg Tablet PO 100 mg Q12H DAVID Administration Enoxaparin Sodium 40 mg 06/25/20 18:00 06/26/20 19:49 Enoxaparin Sodium 40 Mg/0.4 Ml Syringe SUBCUT 40 mg Q24H DAVID Administration Fluoxetine HCl 10 mg 06/26/20 09:00 06/27/20 10:43 Fluoxetine Hcl 10 Mg Capsule PO 10 mg DAILY DAVID Administration Methadone HCl 20 mg 06/25/20 16:50 06/27/20 10:43 Methadone Hcl 1 Mg/0.1 Ml Oral.Conc PO 20 mg DAILY DAVID Administration Nicotine Polacrilex 2 mg 06/25/20 16:47 Nicotine Polacrilex 2 Mg Gum BUCCAL Q2H PRN Nicotine Cravings Ondansetron HCl 4 mg 06/25/20 16:47 Ondansetron Hcl 4 Mg/2 Ml Vial IVPUSH Q8H PRN Nausea and Vomiting Pharmacy Consult 1 each 06/25/20 10:25 Consult Rx Vancomycin Dosing MISCELLANE DAILY PRN Consult order Sodium Chloride 3 ml 06/25/20 16:47 06/27/20 10:43 0.9 % Sodium Chloride Flush 3 Ml Syringe IVFLUSH 3 ml QSHIFT DAVID Administration Labs CBC & Chem 7: 06/27/20 08:07 06/27/20 08:07 Microbiology Microbiology Results: Microbiology 06/25/20 02:23 Blood - Venous Blood Culture - Preliminary No growth after 48 hours. 06/25/20 02:23 Blood - Venous Blood Culture - Preliminary No growth after 48 hours. Assessment and Plan (1) Opioid use disorder: Status: Acute (2) Venous stasis ulcer: Status: Acute Assessment and Plan: 64-year-old male with a history of polysubstance abuse, cirrhosis, HCV, chronic right lower extremity venous ulcer, recently admitted to [facility] for MRSA bacteremia who left AMA on 06/19/2020 who presents with ongoing wound history of .MRSA bacteremia in the setting of IVDU, RLE venous stasis ulcer IV vancomycin (received 7 days of IV vancomycin at [facility]) with planned duration of 14 days repeat blood culture negative during this admission TTE from [facility] negative for vegetation Since the blood culture negative, id recommended to stop IV antibiotics, and ID recommended p.o. doxycycline for leg wound superficial irritation. 2. RLE venous stasis ulcer No sepsis vascular surgery consulted recommended Arterial duplex seems fine, follow-up with Dr. Birmingham outpatient in 2 weeks. Patient says he goes to wound care clinic here in [place]-patient is to follow- up with wound clinic. 3. polysubstance abuse Seen by Psychiatry Anita Moran patient methadone is being arranged at [place]-which will be arranged around Monday 4. anemia: 10 range chronic, H/ H at baseline possible discharge tomorrow after methadone does
[2020-06-27 15:22] VITALS: BP 119/57; PULSE 62; RESP 18; TEMP 37; O2SAT 99
[2020-06-27] MEDS: Enoxaparin Sodium 40 MG/0.4 ML SYRINGE SUBCUT (17:23)
[2020-06-27 19:41] VITALS: BP 120/70; PULSE 77; RESP 18; TEMP 36.9; O2SAT 99
[2020-06-27 23:32] VITALS: BP 129/65; PULSE 78; RESP 16; TEMP 37; O2SAT 98
[2020-06-28] MEDS: 0.9 % Sodium Chloride Flush 3 ML SYRINGE IVFLUSH ×2 (00:19→08:31)
[2020-06-28 03:28] VITALS: BP 117/54; PULSE 69; RESP 16; TEMP 36.8; O2SAT 98
[2020-06-28 07:10] LABS: MANUAL DIFF FLAG NO
[2020-06-28 07:11] VITALS: BP 117/67; PULSE 66; RESP 18; TEMP 36.8; O2SAT 99
[2020-06-28 07:18] LABS: Basophils Absolute Auto 0.1 X10*3/uL (0.0-0.2); Basophils Percent Auto 0.8 % (0-2); Eosinophils Absolute Auto 0.7 X10*3/uL (0.0-0.4); Eosinophils Percent Auto 8.7 % (0-4); Hematocrit 32.2 % (42-52); Hemoglobin 10.1 g/dl (14.0-18.0); Imm Gran Abs Auto 0.03 X10*3/uL (0.00-0.03); Imm Gran Pct Auto 0.4 % (0.0-0.4); Lymphocytes Absolute Auto 1.7 X10*3/uL (1.2-4.9); Lymphocytes Percent Auto 22.3 % (20-40); Mean Corpuscular HGB Conc 31.4 g/dl (31.0-36.0); Mean Corpuscular Hemoglobin 25.6 pg (27.0-33.0); Mean Corpuscular Volume 81.5 fL (80-98); Mean Platelet Volume 9.9 fL (9.4-12.4); Monocytes Absolute Auto 0.7 X10*3/uL (0.1-1.2); Monocytes Percent Auto 9.4 % (2-11); Neutrophils Absolute Auto 4.5 X10*3/uL (2.0-8.3); Neutrophils Percent Auto 58.4 % (45-73); Platelet Count 192 X10*3/uL (160-400); Red Blood Count 3.95 X10*6/uL (4.60-5.80); Red Cell Distribution Width 15.6 % (11.0-16.0); White Blood Count 7.7 X10*3/uL (4.8-10.8)
[2020-06-28 07:36] LABS: Anion Gap 10 (12-20); Blood Urea Nitrogen 18 mg/dL (9-16); Calcium 7.9 mg/dL (8.4-10.2); Carbon Dioxide 25 mmol/L (22-29); Chloride 107 mmol/L (96-108); Creatinine Clr Calc Pharmacy 88.9; Estimated Glomerular Filt Rate > 60; Glucose Random 92 mg/dL (60-115); Potassium 3.6 mmol/l (3.3-5.1); Sodium 138 mmol/L (135-145)
[2020-06-28] MEDS: FLUoxetine HCl 10 MG CAPSULE PO (08:31)
--- NOTE | 2020-06-28 10:19 | W.MHC.F2F ---
Service Date Service Date: 06/28/20 Encounter Date of encounter: 06/27/20 Reasons for Services Reason for longterm: wound care Reason for physical therapy: home safety and mobility Homebound: Leaving the home is medically contraindicated at this time without the asist of a device and/or another person due th the listed conditions above and below. Certification: Based on the above findings, I certify that this patient is confined to the home and needs intermittent longterm care, physical therapy and/or speech therapy, or continues to need occupational therapy. The patient is under my care, and I have initiated the establishment of the plan of care. The patient will be followed by a physician who will periodically review the plan of care.
--- NOTE | 2020-06-28 10:35 | MHC.CM.PN ---
Addendum entered by Sylvia Godoy 06/28/20 12:55: [facility] WILL START SERVICES FOR WOUND CARE. SOC Monday06/30/2020 Original Note: PATIENT IS DISCHARGED HOME WITH [facility] NEEDS. [facility] (NOT YET AGREED TO PROVIDE SERVICES) AWARE OF PLANS VIA [facility]. CM AWAITING RESPONSE FROM AGENCY.
--- NOTE | 2020-06-28 10:42 | P.DS_ITS ---
DS: Providers Provider Date of admission: 06/25/20 10:25 Primary care physician: Unknown Physician Consults: 06/25/20 10:25 Consult to Infectious Diseases Routine Consulting Provider: Muna Monreal Reason for consultation: recent ama from [facility], E venous ulcer,mrsa bacteremia Has provider been notified: No Consult to Psychiatry Routine Consulting Provider: Anita Moran Reason for consultation: polysubstance abuse, IV heroin/cocaine Has provider been notified: No Consult to Wound Care Provider Routine Consulting Provider: Kianna Cao Reason for consultation: right leg venous ulcer Has provider been notified: No 06/25/20 12:05 Consult to Vascular Surgery Routine Consulting Provider: Bassem Birmingham Reason for consultation: right lower leg ulcer ,cellulitis , ? pvd Has provider been notified: No DS: Diagnosis Discharge Diagnosis (1) Opioid use disorder: Status: Acute (2) Venous stasis ulcer: Status: Acute DS: Medications Discharge Medications Home Medications: Home Medications Medication Instructions Recorded Confirmed fluoxetine [Prozac] 10 mg PO DAILY 06/25/20 06/25/20 Previous Rx's Medication Instructions Recorded doxycycline hyclate 100 mg PO Q12H #14 tab 06/28/20 DS: Summary Hospital Course Hospital Course: 64-year-old male IV drug use recently admitted at [facility] for MRSA bacteremia signed out AMA from [facility] admitted with right lower extremity cellulitis with underlying stasis dermatitis, blood cultures were sent, patient was seen by ID , id recommended stopping vancomycin given blood cultures were negative and recommended p.o. doxycycline for cellulitis, patient was also seen by psych for starting methadone for drug use, patient was started, patient patient was seen by vascular surgery recommended wound care and follow-up with Dr. Birmingham as outpatient, patient was stable discharged on p.o. doxycycline, patient will follow-up methadone clinic on Monday06/29/2020, Time Spent with Patient Time attestation: Total time spent providing and/or coordinating discharge services: Physical Exam Vital Signs: Vital Signs: Last Vital Signs Temp 98.2 F 06/28/20 07:11 Pulse 66 06/28/20 07:11 Resp 18 06/28/20 07:11 BP 117/67 06/28/20 07:11 Pulse Ox 99 06/28/20 07:11 Body Mass Index 26.6 DS: Data Data Completed and Pending Labs on day of discharge: 06/25/20 00:42 XR tibia fibula RT 2V Stat 06/25/20 01:16 Complete Blood Count Auto Diff Stat Lactic Acid Stat 06/25/20 01:34 Erythrocyte Sedimentation Rate Stat 06/25/20 02:23 C Reactive Protein Stat CMP [Comprehensive Met. Panel] Stat UA CC w/rflx Micro + Cult Stat 06/25/20 05:05 Piperacillin Sodium/Tazobactam [Zosyn] 3.375 gm 0.9 % Sodium Chloride [Ns] 50 ml IV ONCE vancomycin HCL 1,000 mg 0.9 % Sodium Chloride [Ns] 250 ml IV ONCE 06/25/20 05:14 Piperacillin Sodium/Tazobactam [Zosyn] 3.375 gm IV .STK-MED ONE 06/25/20 05:43 vancomycin HCL 1,000 mg .ROUTE .STK-MED ONE 06/25/20 05:52 COVID-19 ID NOW ([facility]) Stat 06/25/20 10:14 Transfer Order Routine 06/25/20 10:45 Add Laboratory Test Stat 06/25/20 16:25 EKG Documentation DIRECTED 06/25/20 16:25 ECG 12 lead EKG Stat 06/25/20 16:34 Drug Screen Urine Stat 06/25/20 19:00 vancomycin HCL 750 mg vancomycin HCL 500 mg 0.9 % Sodium Chloride [Ns] 250 ml IV Q12H 06/26/20 US arterial duplex LE BI Routine 06/26/20 05:54 Basic Metabolic Panel DAILY@0600 Complete Blood Count Auto Diff DAILY@0600 06/26/20 18:28 Vancomycin Trough Routine 06/27/20 08:07 Basic Metabolic Panel DAILY@0600 Complete Blood Count Auto Diff DAILY@0600 06/28/20 06:54 Basic Metabolic Panel DAILY@0600 Complete Blood Count Auto Diff DAILY@0600 Laboratory Last Values WBC 7.7 X10*3/uL (4.8-10.8) 06/28/20 06:54 RBC 3.95 X10*6/uL (4.60-5.80) L 06/28/20 06:54 Hgb 10.1 g/dl (14.0-18.0) L 06/28/20 06:54 Hct 32.2 % (42-52) L 06/28/20 06:54 MCV 81.5 fL (80-98) 06/28/20 06:54 MCH 25.6 pg (27.0-33.0) L 06/28/20 06:54 MCHC 31.4 g/dl (31.0-36.0) 06/28/20 06:54 RDW 15.6 % (11.0-16.0) 06/28/20 06:54 Plt Count 192 X10*3/uL (160-400) 06/28/20 06:54 MPV 9.9 fL (9.4-12.4) 06/28/20 06:54 Immature Gran % (Auto) 0.4 % (0.0-0.4) 06/28/20 06:54 Neut % (Auto) 58.4 % (45-73) 06/28/20 06:54 Lymph % (Auto) 22.3 % (20-40) 06/28/20 06:54 [place] % (Auto) 9.4 % (2-11) 06/28/20 06:54 Eos % (Auto) 8.7 % (0-4) H 06/28/20 06:54 Baso % (Auto) 0.8 % (0-2) 06/28/20 06:54 Lymph # (Auto) 1.7 X10*3/uL (1.2-4.9) 06/28/20 06:54 [place] # (Auto) 0.7 X10*3/uL (0.1-1.2) 06/28/20 06:54 Eos # (Auto) 0.7 X10*3/uL (0.0-0.4) H 06/28/20 06:54 Baso # (Auto) 0.1 X10*3/uL (0.0-0.2) 06/28/20 06:54 Abs Immat Gran (auto) 0.03 X10*3/uL (0.00-0.03) 06/28/20 06:54 Absolute Neuts (auto) 4.5 X10*3/uL (2.0-8.3) 06/28/20 06:54 Absolute Nucleated RBC 0.000 X10*3/uL (0.0-0.012) 06/28/20 06:54 Nucleated RBC % (auto) 0.0 /100WBC (0.0-0.2) 06/28/20 06:54 ESR 44 MM/HR (0-15) H 06/25/20 01:34 Sodium 138 mmol/L (135-145) 06/28/20 06:54 Potassium 3.6 mmol/l (3.3-5.1) 06/28/20 06:54 Chloride 107 mmol/L (96-108) 06/28/20 06:54 Carbon Dioxide 25 mmol/L (22-29) 06/28/20 06:54 Anion Gap 10 (12-20) L 06/28/20 06:54 BUN 18 mg/dL (9-16) H 06/28/20 06:54 Creatinine 0.85 mg/dL (0.5-1.4) 06/28/20 06:54 Estim Creat Clear Calc 88.9 06/28/20 06:54 Estimated GFR > 60 06/28/20 06:54 Random Glucose 92 mg/dL (60-115) 06/28/20 06:54 Lactic Acid 1.0 mmol/L (0.5-2.0) 06/25/20 01:16 Calcium 7.9 mg/dL (8.4-10.2) L 06/28/20 06:54 Total Bilirubin 0.7 mg/dL (0.0-1.0) 06/25/20 02:23 AST 42 U/L (5-37) H 06/25/20 02:23 ALT 26 U/L (0-40) 06/25/20 02:23 Alkaline Phosphatase 111 U/L (39-117) 06/25/20 02:23 C-Reactive Protein 2.80 mg/dL (< or = 0.50) H 06/25/20 02:23 Total Protein 7.3 g/dL (6.5-8.0) 06/25/20 02:23 Albumin 2.8 g/dL (3.5-5.0) L 06/25/20 02:23 Urine Color YELLOW 06/25/20 02:23 Urine Appearance CLEAR 06/25/20 02:23 Urine pH 6.0 (5.0-8.0) 06/25/20 02:23 Ur Specific [place] 1.025 (1.005-1.025) 06/25/20 02:23 Urine Protein NEG MG/DL (NEG-TRACE) 06/25/20 02:23 Urine Glucose (UA) NEG MG/DL (NEG) 06/25/20 02:23 Urine Ketones NEG MG/DL (NEG) 06/25/20 02:23 Urine Blood NEG (NEG) 06/25/20 02:23 Urine Nitrite NEG (NEG) 06/25/20 02:23 Ur Leukocyte Esterase NEG (NEG) 06/25/20 02:23 Vancomycin Trough 16.4 mcg/mL (10.0-20.0) 06/26/20 18:28 Urine Opiates Screen POSITIVE (Not Detect) H 06/25/20 16:34 Ur Barbiturates Screen Not Detected (Not Detect) 06/25/20 16:34 Ur Phencyclidine Scrn Not Detected (Not Detect) 06/25/20 16:34 Ur Amphetamines Screen Not Detected (Not Detect) 06/25/20 16:34 U Benzodiazepines Scrn Not Detected (Not Detect) 06/25/20 16:34 Urine Cocaine Screen POSITIVE (Not Detect) H 06/25/20 16:34 U Marijuana (THC) Screen Not Detected (Not Detect) 06/25/20 16:34 COVID-19 ([facility]) Negative (Negative) 06/25/20 05:52 COVID-19 Clin Com See Note 06/25/20 05:52 Preliminary micro results at discharge 06/25/20 02:23 Blood Culture - Preliminary Blood - Venous No growth after 48 hours. 06/25/20 02:23 Blood Culture - Preliminary Blood - Venous No growth after 48 hours. Discharge Plan Discharge Anticipated Discharge Date/Time: 06/28/20 10:16 Patient Disposition: Home Health Service Referrals: Physician,Unknown [Primary Care Provider] - Discharge Medications: New doxycycline hyclate 100 mg Tablet 100 mg PO Q12H Qty: 14 RF: 0 Continued fluoxetine [Prozac] 10 mg Capsule 10 mg PO DAILY RF: 0 Discharge Orders: Discharge Order (Routine); Ordered 06/28/20 Ordered By: Bruce Odom Diet: advance to usual diet Activity on Discharge: As tolerated Discharge Date/Time: 06/28/20 14:00 Visit Report Forms: Patient Portal Discharge page Care Plan Goals: wound care Health Concerns: drug abuse Plan of Treatment: [facility] for [facility] care
[2020-06-28 11:00] VITALS: BP 114/54; PULSE 66; RESP 18; TEMP 36.6; O2SAT 100
== END 2020-06-28 14:00 | disposition home health service (06) | DRG 197 ==
LOC: HO.ED 06-25 05:44 → HO.S3 06-25 15:03
PROVIDERS: Physician Assistant Medical; Admitting Provider Internal Medicine; Emergency Provider Student in an Organized Health Care Education/Training Program; Visit Provider Internal Medicine
DX: I87.311 Chronic venous hypertension (idiopathic) with ulcer of right lower extremity (principal); F11.20 Opioid dependence, uncomplicated; L03.115 Cellulitis of right lower limb; F14.10 Cocaine abuse, uncomplicated; L97.812 Non-pressure chronic ulcer of other part of right lower leg with fat layer exposed; F32.9 Major depressive disorder, single episode, unspecified; F17.210 Nicotine dependence, cigarettes, uncomplicated; Z20.828 Contact with and (suspected) exposure to other viral communicable diseases; Z79.1 Long term (current) use of non-steroidal anti-inflammatories (NSAID); Z79.899 Other long term (current) drug therapy
CPT/HCPCS: 36415; 73590; 80048; 80053; 80202; 80307; 81003; 83605; 85025; 85652; 86140; 87040; 87635; 93005; 93925; 96365; 96367; 99285; J1650; J2543; J3370

== ENCOUNTER 2020-07-28 12:35 | Outpatient (RCR) | payer MEDICAID, SELFPAY | END 2021-01-21 14:14 | disposition home or self-care (01) | LOC: HO.WCC 12:35 | PROVIDERS: Visit Provider Surgery | DX: I87.311 Chronic venous hypertension (idiopathic) with ulcer of right lower extremity (principal); L97.212 Non-pressure chronic ulcer of right calf with fat layer exposed; S91.301D Unspecified open wound, right foot, subsequent encounter; L08.9 Local infection of the skin and subcutaneous tissue, unspecified; G62.9 Polyneuropathy, unspecified; K74.60 Unspecified cirrhosis of liver; F17.210 Nicotine dependence, cigarettes, uncomplicated; Z86.19 Personal history of other infectious and parasitic diseases; Z79.899 Other long term (current) drug therapy; Z79.2 Long term (current) use of antibiotics | CPT/HCPCS: 11042; 11045; 97597; 99213; 99214 ==

== ENCOUNTER → 2020-08-18 14:45 | Outpatient (BNVA) | payer MEDICAID, SELFPAY | PROVIDERS: PCP Family Medicine; Visit Provider Surgery Vascular Surgery | DX: I83.11 Varicose veins of right lower extremity with inflammation (principal) | CPT/HCPCS: 99212 ==

== ENCOUNTER 2020-09-03 12:56 | Outpatient (REF) | payer MEDICAID, SELFPAY ==
--- NOTE | 2020-09-03 13:02 | US_ITS ---
EXAMINATION: RIGHT and LEFT LOWER EXTREMITY VENOUS ULTRASOUND (Reflux Exam) CLINICAL INDICATION: leg pain and varicose veins. COMPARISON: None. TECHNIQUE: Color flow triplex imaging and compression Doppler was performed to evaluate both the deep and the superficial systems bilaterally. To evaluate the superficial system, the examination was performed in the upright position. Color-flow Doppler ultrasound and compression ultrasound were utilized. In addition, maneuvers were utilized to demonstrate reflux. FINDINGS: 1. DEEP VENOUS ULTRASOUND OF THE RIGHT LOWER EXTREMITY: Respiratory variation, normal compression and augmented flow are noted in the right common femoral vein as well as the right popliteal vein and there is no evidence of deep venous thrombosis at these locations. There is no evidence of reflux in the deep system in either the common femoral vein or the popliteal vein. There is no evidence of a Foy's cyst. 2. SUPERFICIAL ULTRASOUND WITH DOPPLER OF RIGHT LOWER EXTREMITY: The right great saphenous vein at the saphenofemoral junction measures 10 mm, at the mid thigh 11 mm, hezvf-nth-jzil 7 mm, urymi-wox-[id number] 7 mm, at mid calf 1.2 mm and not visualized at the ankle. There is 1 second right greater saphenous vein reflux in the mid thigh, at the knee and akdnl-pxf-duwn. There is a laterally sestamibi greater saphenous vein that measures 3 mm and does not demonstrate reflux and The right small saphenous vein measures 4 to 5 mm mm and shows no reflux. There is a solar manufacturer's representative in the calf that measures 2 mm and does not demonstrate reflux. There are varicosities in the thigh calf and at the knee measuring between 3 and 6 mm that do not demonstrate reflux. There is reflux in a varicosity in the distal thigh that measures 3 mm measuring 1 seconds. 3. DEEP VENOUS ULTRASOUND OF THE LEFT LOWER EXTREMITY: Respiratory variation, normal compression and augmented flow are noted in the left common femoral vein as well as the left popliteal vein and there is no evidence of deep venous thrombosis at these locations. There is no evidence of reflux in the deep system in either the common femoral vein or the popliteal vein. . There is no evidence of a Foy's cyst. 4. SUPERFICIAL ULTRASOUND WITH DOPPLER OF LEFT LOWER EXTREMITY: Left great saphenous vein at the saphenofemoral junction measures 7 mm, at the mid thigh 5 mm, iuqpm-jgn-jukr 4 mm, egejj-rol-fcpi 4 mm, at mid calf 4 mm and at the ankle measures 4 mm. There is reflux in the right greater saphenous vein measuring 1.5 seconds in the mid thigh, 1.1 seconds at the knee and 1.3 seconds below the knee. There is an accessory lateral greater saphenous vein that measures 3 mm and does not demonstrate reflux The left small saphenous vein measures 2-6 mm and shows no reflux. There is a solar manufacturer's representative in the distal fibula measures 3 mm and demonstrates 2.5 second reflux. There is a solar manufacturer's representative in the mid calf that measures 2 mm and does not demonstrate reflux. There are multiple varicosities in the thigh and calf that demonstrate reflux, maximum 2.6 seconds. US/US venous duplex LE BI IMPRESSION: 1. No evidence of reflux or thrombus in the common femoral veins or popliteal veins bilaterally. 2. Bilateral greater saphenous vein reflux.
== END 2020-09-03 12:57 | disposition home or self-care (01) ==
LOC: HO.US 12:56
PROVIDERS: PCP Family Medicine; Visit Provider Surgery Vascular Surgery
DX: I83.893 Varicose veins of bilateral lower extremities with other complications (principal); I83.11 Varicose veins of right lower extremity with inflammation
CPT/HCPCS: 93970

== ENCOUNTER → 2020-09-17 11:17 | Outpatient (BNVA) | payer MEDICAID, SELFPAY | PROVIDERS: PCP Family Medicine; Visit Provider Surgery Vascular Surgery | DX: I83.11 Varicose veins of right lower extremity with inflammation (principal) | CPT/HCPCS: 99212 ==

== ENCOUNTER 2020-11-27 13:27 | Emergency (ER) | payer MEDICAID, SELFPAY ==
[2020-11-27 13:46] VITALS: BP 120/66; PULSE 91; RESP 18; TEMP 37.1; O2SAT 100; BMI 26.8
[2020-11-27 14:29] LABS: MANUAL DIFF FLAG NO
[2020-11-27 14:32] LABS: Basophils Percent Auto 0.4 % (0-2); Eosinophils Absolute Auto 0.2 X10*3/uL (0.0-0.4); Eosinophils Percent Auto 1.7 % (0-4); Hematocrit 33.9 % (42-52); Hemoglobin 10.6 g/dl (14.0-18.0); Imm Gran Abs Auto 0.03 X10*3/uL (0.00-0.03); Imm Gran Pct Auto 0.3 % (0.0-0.4); Lymphocytes Absolute Auto 0.7 X10*3/uL (1.2-4.9); Lymphocytes Percent Auto 8.1 % (20-40); Mean Corpuscular HGB Conc 31.3 g/dl (31.0-36.0); Mean Corpuscular Hemoglobin 25.4 pg (27.0-33.0); Mean Corpuscular Volume 81.3 fL (80-98); Mean Platelet Volume 9.7 fL (9.4-12.4); Monocytes Absolute Auto 1.1 X10*3/uL (0.1-1.2); Monocytes Percent Auto 12.1 % (2-11); Neutrophils Percent Auto 77.4 % (45-73); Platelet Count 228 X10*3/uL (160-400); Red Blood Count 4.17 X10*6/uL (4.60-5.80); Red Cell Distribution Width 15.9 % (11.0-16.0)
[2020-11-27 15:05] LABS: Blood Urea Nitrogen 17 mg/dL (9-16); Calcium 8.4 mg/dL (8.4-10.2); Creatinine Clr Calc Pharmacy 88.7; Estimated Glomerular Filt Rate > 60; Glucose Random 109 mg/dL (60-115)
[2020-11-27 15:26] LABS: Anion Gap 10 (12-20); Carbon Dioxide 27 mmol/L (22-29); Chloride 104 mmol/L (96-108); Sodium 137 mmol/L (135-145)
[2020-11-27 15:58] VITALS: BP 139/78; PULSE 78; RESP 16; TEMP 37.1; O2SAT 98
--- NOTE | 2020-11-27 16:03 | ED_ITS ---
HPI - Extremity Problem General Chief complaint: Extremity Problem Stated complaint: leg infection Time Seen by Provider: 11/27/20 15:28 Source: patient Mode of arrival: ambulatory Limitations: no limitations History of Present Illness HPI Narrative: 64-year-old male with a past medical history of polysubstance use, chronic right lower extremity wounds here with increasing swelling, redness, warmth to the right lower extremity over the last week. No fevers or chills. 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 Related Data Home Medications Medication Instructions Recorded Confirmed fluoxetine [Prozac] 10 mg PO DAILY 06/25/20 06/25/20 Previous Rx's Medication Instructions Recorded doxycycline hyclate 100 mg PO Q12H #14 tab 06/28/20 doxycycline monohydrate 100 mg PO BID #14 tab 11/27/20 Allergies Allergy/AdvReac Type Severity Reaction Status Date / Time trazodone [TRAZODONE] Allergy Intermediate RESTLESS Verified 09/17/20 11:21 LEGS Review of Systems Review of Systems: Yes all other systems are reviewed and are negative Constitutional: Constitutional: Reports no additional constitutional complaints, Denies body ache(s), Denies chills, Denies fever(s), Denies headache(s) and Denies weakness Eyes: Eyes: Reports no additional eye complaints and Denies change in vision ENT: Reports system reviewed and no additional complaints, except as documented, Denies dizziness, Denies headache(s), Denies nasal congestion, Denies nasal discharge and Denies neck pain Cardiovascular: Cardiovascular: Reports no additional cardiovascular complaints, Denies chest pain, Denies leg edema and Denies dyspnea Respiratory: Respiratory: Reports no additional respiratory complaints, Denies cough and Denies dyspnea Gastrointestinal: Gastrointestinal: Reports no additional gastrointestinal complaints, Denies abdominal pain, Denies diarrhea, Denies nausea and Denies vomiting Genitourinary: Genitourinary: Denies urinary incontinence Musculoskeletal: Musculoskeletal: Reports no additional musculoskeletal complaints, Denies back pain, Denies arthralgias, Denies joint swelling, Denies neck pain, Denies numbness and Denies tingling Integumentary/Breasts: Skin/Breast: Reports system reviewed and no additional complaints, except as docu, Reports swelling, Reports erythema, Denies rash and Reports wounds Neurologic: Reports system reviewed and no additional complaints, except as documented, Denies Abnormal speech present, Denies dizziness, Denies headache(s), Denies numbness, Denies tingling and Denies weakness PMFSH Past Medical History Attestation statement: The following information was validated with the patient. Source: old records reviewed and nursing notes reviewed Medical History Anemia Chronic cutaneous venous stasis ulcer Cirrhosis Depression Hepatitis C Polysubstance abuse Tobacco dependence Surgical History H/O hernia repair Family History Family History Mother CAD (coronary artery disease) ESRD (end stage renal disease) Brother Liver failure Social History Social History Household Members: None Housing: Other Alcohol intake: former Smoking Status: Current every day smoker Cigarettes Per Day: 2 Second Hand Smoke Exposure: No Substance Use Type: Crack/Cocaine and Heroin Advance Directives: No Advance Directives Information Provided: No service: No Current occupational status: disabled Physical Exam Vital Signs: Vital Signs: Last Vital Signs Temp 98.7 F 11/27/20 15:58 Pulse 78 11/27/20 15:58 Resp 16 11/27/20 15:58 BP 139/78 11/27/20 15:58 Pulse Ox 98 11/27/20 15:58 Body Mass Index 26.8 Const: General: cooperative, healthy appearing, comfortable and no acute distress Orientation/consciousness: patient oriented x3 Limitations: no limitations HENMT: Head: Yes normal to inspection Ears: hearing grossly normal bilaterally General nose exam: Normal external nose present Face and sinus: Yes normal facial exam Mouth: Normal oral and palatal mucosa present Throat: Yes posterior oropharynx normal Eyes: General: appearance normal, both eyes and all related structures Pupils: Equal, round and reactive pupils present Neck: Neck: Yes normal visual inspection Chest: Chest palpation & inspection: normal inspection of the chest Resp: Effort & Inspection: normal respiratory effort Auscultation: clear to auscultation bilaterally Cardio: Rate: regular rate Rhythm: regular rhythm Peripheral pulses: Peripheral pulses 2+ throughout GI: Inspection: Yes normal to inspection Palpation (GI): Soft to palpation and nontender Auscultation: normal bowel sounds Back/Spine/Pelvis: Thoracic/Lumbar Spine: thoracic and lumbar spine normal to inspection Skin: General skin exam: no rashes or lesions noted Neuro: General: patient oriented x3, no focal motor deficits and normal sensation to monofilament Cranial nerves: Yes Equal, round and reactive pupils present Cognition (Neuro): normal cognition Speech: No Abnormal speech present Gait exam (Neuro): Normal gait present Motor exam (neuro): 5/5 motor strength present throughout Extrem: Other: Warm to touch, pitting edema with tenderness, palpable dorsalis pedis General: Yes normal to inspection Course Course Course Narrative: 64-year-old male with a past medical history of polysubstance use, chronic right lower extremity wounds here with right lower extremity redness, warmth, swelling and increasing pain for the last week. Denies fever. Exam consistent with extensive cellulitis of the right lower extremity. Recommended admission but the patient needs to go home to take care of his dog. He plans on returning to the hospital to be admitted for IV antibiotics. I did have the director of casework services meet with him in case he does not return. [facility] care services will be arranged. He will need topical antibiotics with wet to dry dressing changes daily. Will prescribe course of antibiotics in case he has not returned. Extensive discussion at the bedside the patient may end up with bacteremia or loss of limb. Leaving AMA. MDM - Extremity (Nontraumatic) Lab Data Result diagrams: 11/27/20 14:22 11/27/20 14:22 Labs: Lab Results 11/27/20 11/27/20 11/27/20 Range/Units 14:22 14:22 14:22 WBC 9.0 (4.8-10.8) X10*3/uL RBC 4.17 L (4.60-5.80) X10*6/uL Hgb 10.6 L (14.0-18.0) g/dl Hct 33.9 L (42-52) % MCV 81.3 (80-98) fL MCH 25.4 L (27.0-33.0) pg MCHC 31.3 (31.0-36.0) g/dl RDW 15.9 (11.0-16.0) % Plt Count 228 (160-400) X10*3/uL MPV 9.7 (9.4-12.4) fL Immature Gran % (Auto) 0.3 (0.0-0.4) % Neut % (Auto) 77.4 H (45-73) % Lymph % (Auto) 8.1 L (20-40) % [place] % (Auto) 12.1 H (2-11) % Eos % (Auto) 1.7 (0-4) % Baso % (Auto) 0.4 (0-2) % Lymph # (Auto) 0.7 L (1.2-4.9) X10*3/uL [place] # (Auto) 1.1 (0.1-1.2) X10*3/uL Eos # (Auto) 0.2 (0.0-0.4) X10*3/uL Baso # (Auto) 0.0 (0.0-0.2) X10*3/uL Abs Immat Gran (auto) 0.03 (0.00-0.03) X10*3/uL Absolute Neuts (auto) 7.0 (2.0-8.3) X10*3/uL Absolute Nucleated RBC 0.000 (0.0-0.012) X10*3/uL Nucleated RBC % (auto) 0.0 (0.0-0.2) /100WBC Hold Blue Top SEE NOTE Sodium 137 (135-145) mmol/L Potassium 4.0 (3.3-5.1) mmol/L Chloride 104 (96-108) mmol/L Carbon Dioxide 27 (22-29) mmol/L Anion Gap 10 L (12-20) BUN 17 H (9-16) mg/dL Creatinine 0.88 (0.5-1.4) mg/dL Estim Creat Clear Calc 88.7 Estimated GFR > 60 Random Glucose 109 (60-115) mg/dL Lactic Acid (0.5-2.0) mmol/L Calcium 8.4 D (8.4-10.2) mg/dL 11/27/20 Range/Units 15:53 WBC (4.8-10.8) X10*3/uL RBC (4.60-5.80) X10*6/uL Hgb (14.0-18.0) g/dl Hct (42-52) % MCV (80-98) fL MCH (27.0-33.0) pg MCHC (31.0-36.0) g/dl RDW (11.0-16.0) % Plt Count (160-400) X10*3/uL MPV (9.4-12.4) fL Immature Gran % (Auto) (0.0-0.4) % Neut % (Auto) (45-73) % Lymph % (Auto) (20-40) % [place] % (Auto) (2-11) % Eos % (Auto) (0-4) % Baso % (Auto) (0-2) % Lymph # (Auto) (1.2-4.9) X10*3/uL [place] # (Auto) (0.1-1.2) X10*3/uL Eos # (Auto) (0.0-0.4) X10*3/uL Baso # (Auto) (0.0-0.2) X10*3/uL Abs Immat Gran (auto) (0.00-0.03) X10*3/uL Absolute Neuts (auto) (2.0-8.3) X10*3/uL Absolute Nucleated RBC (0.0-0.012) X10*3/uL Nucleated RBC % (auto) (0.0-0.2) /100WBC Hold Blue Top Sodium (135-145) mmol/L Potassium (3.3-5.1) mmol/L Chloride (96-108) mmol/L Carbon Dioxide (22-29) mmol/L Anion Gap (12-20) BUN (9-16) mg/dL Creatinine (0.5-1.4) mg/dL Estim Creat Clear Calc Estimated GFR Random Glucose (60-115) mg/dL Lactic Acid 1.2 (0.5-2.0) mmol/L Calcium (8.4-10.2) mg/dL Discharge Plan Discharge Clinical Impression: Cellulitis Qualifiers: Site of cellulitis: extremity Site of cellulitis of extremity: lower extremity Laterality: right Qualified Code(s): L03.115 - Cellulitis of right lower limb Patient Disposition: Home, Self-Care Instructions: Cellulitis (ED), Against Medical Advice (ED) Additional Instructions: It was recommended that you stay in the hospital for IV antibiotics You declines this You must be aware that this infection could get worse and cause bacteria and her bloodstream. You could also lose your leg Please return as soon as possible for admission Prescriptions: New doxycycline monohydrate 100 mg tablet 100 mg PO BID Qty: 14 RF: 0 No Action fluoxetine [Prozac] 10 mg Capsule 10 mg PO DAILY RF: 0 doxycycline hyclate 100 mg Tablet 100 mg PO Q12H Qty: 14 RF: 0 Stand Alone Forms: Against Medical Advice Interventions: ED Discharge Assessment Last Done: 11/27/20 16:15 Discharge Date/Time: 11/27/20 16:15
--- NOTE | 2020-11-27 16:14 | PC.NURSE ---
Pt decling Iv antibiotics and treatment, states he must go home to care for dog. Pt aware of dangers leaving AMA as discussed with this rn and provider.
[2020-11-27 16:27] LABS: Lactic Acid 1.2 mmol/L (0.5-2.0)
--- NOTE | 2020-11-27 18:31 | MHC.CM.ED ---
CM met with this pt at 1600 at request of Shelly LOPEZ. CM stressed with patient the importance of staying in the hospital to treat his ulcerations. CM stressed that patient needs IV antibiotics, not oral and needs treatment. CM explained that dressing changes by the [facility] are not the treatment he needs. Pt states he cannot stay and will return later tonight when he finds someone to care for his dog. Pt also has a HX of current polysubstance misuse. Pt tells CM that he cannot call anyone to care for the dog and must leave. Pt tells CM that the contacts listed in his chart do not speak to him anymore. CM will broadcast to [facility]'s to provide wound care and detention. Pt in agreement. CM to follow for d/c planning.
--- NOTE | 2020-11-27 18:46 | MHC.CM.ED ---
Late entry for 1645. CM broadcasted to [facility]. Pt aware and will accept whichever agency accepts him. [facility] accepted pt. F2F completed and sent to agency at 1705. Provider aware.
== END 2020-11-27 16:15 | disposition home or self-care (01) ==
PROVIDERS: Nurse Practitioner Family; Emergency Provider Emergency Medicine
DX: L03.115 Cellulitis of right lower limb (principal); L97.919 Non-pressure chronic ulcer of unspecified part of right lower leg with unspecified severity; M79.661 Pain in right lower leg; F11.10 Opioid abuse, uncomplicated; F19.10 Other psychoactive substance abuse, uncomplicated; D64.9 Anemia, unspecified; K74.60 Unspecified cirrhosis of liver; B19.20 Unspecified viral hepatitis C without hepatic coma; F17.210 Nicotine dependence, cigarettes, uncomplicated
CPT/HCPCS: 36415; 80048; 83605; 85025; 87040; 99283; 99285

== ENCOUNTER 2020-11-27 20:48 | Inpatient (IN) | payer MEDICAID, SELFPAY ==
[2020-11-27 21:36] VITALS: BP 129/61; PULSE 85; RESP 18; TEMP 37.1; O2SAT 100; BMI 26.9
[2020-11-27 23:06] VITALS: BP 143/74; PULSE 85; RESP 16; TEMP 37.3; O2SAT 98
--- NOTE | 2020-11-27 23:15 | ED.GENADULT ---
HPI - General Adult General Chief complaint: General Medical Stated complaint: LEG PAIN Time Seen by Provider: 11/27/20 23:09 Source: patient Mode of arrival: ambulatory Limitations: no limitations History of Present Illness HPI narrative: Patient with history of IV drug abuser chronic nonhealing wound on the right leg sent from wound clinic earlier today for admission for infection patient came earlier labs were done but patient refused to stay as he had some home situation now comes back for admission patient denies any fever once are there for last 2 years Related Data Home Medications Medication Instructions Recorded Confirmed fluoxetine [Prozac] 10 mg PO DAILY 06/25/20 06/25/20 Previous Rx's Medication Instructions Recorded doxycycline hyclate 100 mg PO Q12H #14 tab 06/28/20 doxycycline monohydrate 100 mg PO BID #14 tab 11/27/20 Allergies Allergy/AdvReac Type Severity Reaction Status Date / Time trazodone [TRAZODONE] Allergy Intermediate RESTLESS Verified 09/17/20 11:21 LEGS Review of Systems Review of Systems: Constitutional : No Weight loss, No Fever, No Chills ENT/Mouth : No sore throat, No Rhinorrhea Eyes: No Eye Pain, No Swelling Cardiovascular : No Chest Pain, no palpitations Respiratory : No Cough, No Sputum, no shortness of breath Gastrointestinal : no Nausea, No Vomiting, No Diarrhea, No abdominal Pain, no black stools Genitourinary : No Dysuria, No Urinary Frequency Musculoskeletal : No joint pain, No Myalgias, No Joint Swelling Skin : +++ Skin Lesions, ++ rash Neuro : No Weakness, No Numbness, No Dizziness, No Headache Psych : No Anxiety/Panic, No Depression Heme/Lymph: No Bruising, No Lymphadenopathy Endocrine : No Polyuria, No Polydipsia All other systems reviewed and are negative PMF Past Medical History Medical History Anemia Chronic cutaneous venous stasis ulcer Cirrhosis Depression Hepatitis C Polysubstance abuse Tobacco dependence Surgical History H/O hernia repair Family History Family History Mother CAD (coronary artery disease) ESRD (end stage renal disease) Brother Liver failure Social History Social History Household Members: None Housing: Other Alcohol intake: never Smoking Status: Current every day smoker Cigarettes Per Day: 2 Smoked in Last 30 Days: Yes Second Hand Smoke Exposure: No Use of substances other than those prescribed or required for medical reasons: Yes Substance Use Type: Crack/Cocaine, Heroin and IV Drugs Last Used Substance: Hours (ago) Any prior treatment program specific to substance use: Yes Advance Directives: No Advance Directives Information Provided: Yes service: No Current occupational status: disabled Physical Exam Vital Signs: Vital Signs: Last Vital Signs Temp 99.1 F 11/27/20 23:06 Pulse 85 11/27/20 23:06 Resp 16 11/28/20 00:28 BP 143/74 H 11/27/20 23:06 Pulse Ox 98 11/27/20 23:06 Body Mass Index 26.9 Appearance: Alert. Oriented X3. No acute distress. Eyes: Pupils equal, round and reactive to light. ENT: Pharynx normal. Neck: Normal inspection. Neck supple. CVS: Normal heart rate and rhythm. Pulses normal. Respiratory: No respiratory distress. Breath sounds normal. Abdomen: Soft and nontender. Bowel sounds are present, no mass palpable, no CVA tenderness Skin: Skin warm and dry. Normal skin color. Normal skin turgor. Extremities: Chronic venous stasis ulcer swollen leg with purulent base Neuro: Oriented X 3. No motor deficit. No sensory deficit. Medical Decision Making MDM Narrative Medical decision making narrative: Patient with chronic venous stasis ulcer in right leg which are getting infected will admit patient for IV antibiotics and pain control Medical Records Medical records reviewed: Yes I reviewed the patient's medical records. Lab Data Lab results reviewed: Yes I reviewed the patient's lab results. Discharge Plan Discharge Clinical Impression: Infected wound Venous stasis ulcer Qualifiers: Venous stasis ulcer site: other part of lower leg Varicose vein presence: without varicose veins Laterality: right Non-pressure ulcer stage: with fat layer exposed Qualified Code(s): I87.2 - Venous insufficiency (chronic) (peripheral) Patient Disposition: Admitted As Inpatient
[2020-11-27] MEDS: Piperacillin Sodium/Tazobactam 3.375 GM in 0.9 % Sodium Chloride 50 ML IV (23:47)
[2020-11-28] VITALS (10 sets, daily range): BP systolic 116–161; BP diastolic 47–81; PULSE 68–89; RESP 12–20; TEMP 36–37.3; O2SAT 96–100
--- NOTE | 2020-11-28 | PC.NURSE ---
pt returns to ED after leaving AMA earlier today. pt returns with cellulitis of the lower right leg. Lower right leg has multiple open areas on front and interior side of rivera as well as the top of the right foot near toes. dressings removed and leg inspected by (Dung). telfa dressings applied over open areas and leg re-wrapped in gauze wrap and positioned over pillows to relieve pressure. Antibiotic infusing per MAR. pt requesting pain medication at this time for 10/10 right lower leg pain. aware. Call sam in reach.
[2020-11-28] MEDS: Morphine Sulfate 4 MG/ML CARTRIDGE IVPUSH (00:28)
[2020-11-28] MEDS: vancomycin HCL 1,000 MG in 0.9 % Sodium Chloride 250 ML 270 MG IV ×2 (00:51→12:56)
[2020-11-28] MEDS: LORazepam 2 MG/ML VIAL IVPUSH (00:54)
--- NOTE | 2020-11-28 01:20 | PC.NURSE ---
pt currently resting comfortably in bed with eyes closed, responsive to verbal stimuli. states his right leg pain is still 8/10 but verbalizes pain has decreased. vanco infusing per MAR. pt aware of plan for admission and has no questions or concerns at this time. call vargas in reach.
[2020-11-28 01:55] LABS: COVID-19 Test Negative (Negative)
[2020-11-28] MEDS: Enoxaparin Sodium 40 MG/0.4 ML SYRINGE SUBCUT (02:37)
--- NOTE | 2020-11-28 03:42 | PC.NURSE ---
pt observed sleeping comfortably and snoring. pt woke up and requested warm blanket, was given warm blanket by this nurse. pt stated pain is better but did not provide number before falling back asleep. respirations even and unlabored. call vargas in reach.
--- NOTE | 2020-11-28 05:09 | PM.IMHP ---
History of Present Illness Date of Service: 11/28/20 Chief Complaint: Nonhealing leg wounds 64-year-old male with past medical history of IV drug abuse, hepatitis-C, liver cirrhosis, presented to the hospital with complaints of nonhealing chronic right lower extremity wounds. Patient reports that he has had these wounds for many years but about 1 week ago they started hurting him, developed redness, drainage. The pain is 10/10, in the foot and rivera area, nonradiating. Relieved with medication he received in the ED. Denies any fever chills, no chest pain, shortness of breath, no headache or change in vision, no cough or sputum production, no diarrhea constipation, no abdominal pain, nausea vomiting, no urinary symptoms and no weakness numbness or tingling To the ED hemodynamically stable with no significant abnormal vitals Showed WBC count 9.0, hemoglobin of 10.6 which is around his baseline, sodium of 137, potassium of 4.0, COVID-19 negative, labs otherwise unremarkable Patient will be admitted for further management Review of Systems Review of Systems: Yes all other systems are reviewed and are negative [facility] Medical History (Updated 11/28/20 @ 05:18 by Remington Curtis MD) Anemia Chronic cutaneous venous stasis ulcer Cirrhosis Depression Hepatitis C Polysubstance abuse Tobacco dependence Family History Mother CAD (coronary artery disease) ESRD (end stage renal disease) Brother Liver failure Surgical History H/O hernia repair Social History Household Members: None Housing: Other Alcohol intake: never Smoking Status: Current every day smoker Cigarettes Per Day: 2 Smoked in Last 30 Days: Yes Second Hand Smoke Exposure: No Use of substances other than those prescribed or required for medical reasons: Yes Substance Use Type: Crack/Cocaine, Heroin and IV Drugs Last Used Substance: Hours (ago) Any prior treatment program specific to substance use: Yes Advance Directives: No Advance Directives Information Provided: Yes service: No Current occupational status: disabled Meds Allergies Allergy/AdvReac Type Severity Reaction Status Date / Time trazodone [TRAZODONE] Allergy Intermediate RESTLESS Verified 09/17/20 11:21 LEGS Active Medications: Current Medications Generic Name Dose Route Start Last Admin Trade Name Gianni PRN Reason Stop Dose Admin Acetaminophen 650 mg 11/28/20 01:03 Acetaminophen 325 Mg Tablet PO Q6H PRN Pain, Mild (Pain Scale 1-3) Clonidine HCl 0.1 mg 11/28/20 01:03 Clonidine Hcl 0.1 Mg Tablet PO TID PRN anxiety, restlessness Protocol Docusate Sodium 100 mg 11/28/20 01:03 Docusate Sodium 100 Mg Capsule PO DAILY PRN Constipation Enoxaparin Sodium 40 mg 11/28/20 01:03 11/28/20 02:37 Enoxaparin Sodium 40 Mg/0.4 Ml Syringe SUBCUT 40 mg Q24H DAVID Administration Hydroxyzine HCl 25 mg 11/28/20 01:03 Hydroxyzine Hcl 25 Mg Tablet PO Q6H PRN anxiety/restlessness Vancomycin HCl 1,250 mg/ 250 mls @ 166.667 mls/hr 11/28/20 01:03 11/28/20 01:45 Sodium Chloride IV Not Given Q24H DAVID Piperacillin Sod/Tazobactam 50 mls @ 100 mls/hr 11/28/20 06:00 Sod 3.375 gm/ Sodium Chloride IV Q6H DAVID Morphine Sulfate 4 mg 11/28/20 01:03 Morphine Sulfate 4 Mg/Ml Cartridge IVPUSH Q4H PRN Pain, Severe (Pain Scale 7-10) Ondansetron HCl 4 mg 11/28/20 01:03 Ondansetron Hcl 4 Mg/2 Ml Vial IVPUSH Q8H PRN Nausea and Vomiting Pharmacy Consult 1 each 11/28/20 01:03 Consult Rx Vancomycin Dosing MISCELLANE DAILY PRN Consult order Sodium Chloride 3 ml 11/28/20 08:00 0.9 % Sodium Chloride Flush 3 Ml Syringe IVFLUSH QSHIFT [facility] Home Medications Medication Instructions Recorded Confirmed Last Taken Type fluoxetine [Prozac] 10 mg PO DAILY 06/25/20 06/25/20 Unknown History Physical Exam Vital Signs and Narrative: Vital Signs: Last Vital Signs Temp 98.7 F 11/28/20 01:18 Pulse 89 11/28/20 02:08 Resp 14 11/28/20 02:08 BP 135/47 L 11/28/20 02:08 Pulse Ox 98 11/28/20 02:08 Body Mass Index 26.9 Const: General: cooperative and no acute distress Orientation/consciousness: patient oriented x3 Eyes: General: appearance normal, both eyes and all related structures Resp: Effort & Inspection: normal respiratory effort and able to speak in complete sentences Cardio: Rate: regular rate Rhythm: regular rhythm GI: Palpation (GI): Soft to palpation Auscultation: normal bowel sounds Skin: General skin exam: no rashes or lesions noted Neuro: General: patient oriented x3 Cognition (Neuro): normal cognition Extrem: Other: right lower exctremity iflammed appearing from foot to just below the knee, miltiple venous stasis ulcers that appear clean based and chronic, has clear drainage, erythema, warmth and severe tenderness Results Labs Labs: Laboratory Results - last 24 hr 11/28/20 01:17 COVID-19 (JACQUE) Negative COVID-19 Clin Com See Note Assessment and Plan (1) Chronic cutaneous venous stasis ulcer: Status: Inactive (2) Infected wound: Status: Acute (3) Opioid use disorder: Status: Acute (4) Cellulitis: Status: Acute 64-year-old male with past medical history of IV drug use as well as cocaine use presents to the hospital with complaints of 1 week history of pain as well as inflammation of his right lower extremity # chronic venous stasis ulcer- cellulitis - has erythema, tenderness, warmth, multiple clean based ulcers from Fort all the way to below the right knee - clear drainage from the venous ulcers - will start patient on broad-spectrum antibiotics including vancomycin and Zosyn - follow cultures - pain control # polysubstance abuse disorder - abuses heroin as well as cocaine - last used around 12 p.m. prior to presentation - will start him on clonidine for possible withdrawal as well as hydroxyzine - monitor for withdrawal symptoms # hep C and liver cirrhosis - no evidence of decompensation - will continue to monitor DVT prophylaxis: Lovenox
--- NOTE | 2020-11-28 06:14 | PC.NURSE ---
Nurse to nurse report given to Ashlee MARTINEZ in [facility]
[2020-11-28] MEDS: 0.9 % Sodium Chloride Flush 3 ML SYRINGE IVFLUSH ×2 (08:51→17:20)
[2020-11-28] MEDS: Piperacillin Sodium/Tazobactam 3.375 GM in 0.9 % Sodium Chloride 50 ML IV ×3 (08:51→17:18)
--- NOTE | 2020-11-28 13:55 | MHC.CM.PN ---
Pt reports he lives alone and currently has no services. he reports he did have home care but it was discontinued. Pt reports he uses a cane to ambulate and no other DME. pt dumas snot have a HCP and declines to complete one today. Pt confirms his PCP is Brandee Grey. Current DC plan is home with no services [facility] pt believes he may have a ride at DC but is aware CM can assist if needed.
[2020-11-29] MEDS: Piperacillin Sodium/Tazobactam 3.375 GM in 0.9 % Sodium Chloride 50 ML IV ×4 (00:14→18:10)
[2020-11-29] MEDS: vancomycin HCL 1,000 MG in 0.9 % Sodium Chloride 250 ML 270 MG IV ×2 (01:05→13:42)
[2020-11-29] MEDS: 0.9 % Sodium Chloride Flush 3 ML SYRINGE IVFLUSH ×3 (01:06→15:30)
[2020-11-29] MEDS: Enoxaparin Sodium 40 MG/0.4 ML SYRINGE SUBCUT (02:42)
[2020-11-29 03:03] VITALS: BP 110/56; PULSE 79; RESP 18; TEMP 36.3; O2SAT 96
[2020-11-29 06:28] LABS: MANUAL DIFF FLAG NO
[2020-11-29 06:50] LABS: Basophils Absolute Auto 0.1 X10*3/uL (0.0-0.2); Basophils Percent Auto 0.6 % (0-2); Eosinophils Absolute Auto 0.5 X10*3/uL (0.0-0.4); Eosinophils Percent Auto 5.3 % (0-4); Hematocrit 31.7 % (42-52); Hemoglobin 9.9 g/dl (14.0-18.0); Imm Gran Abs Auto 0.03 X10*3/uL (0.00-0.03); Imm Gran Pct Auto 0.3 % (0.0-0.4); Lymphocytes Absolute Auto 1.8 X10*3/uL (1.2-4.9); Lymphocytes Percent Auto 20.5 % (20-40); Mean Corpuscular HGB Conc 31.2 g/dl (31.0-36.0); Mean Corpuscular Hemoglobin 25.1 pg (27.0-33.0); Mean Corpuscular Volume 80.5 fL (80-98); Mean Platelet Volume 9.8 fL (9.4-12.4); Monocytes Absolute Auto 1.2 X10*3/uL (0.1-1.2); Monocytes Percent Auto 13.4 % (2-11); Neutrophils Absolute Auto 5.3 X10*3/uL (2.0-8.3); Neutrophils Percent Auto 59.9 % (45-73); Platelet Count 211 X10*3/uL (160-400); Red Blood Count 3.94 X10*6/uL (4.60-5.80); Red Cell Distribution Width 15.9 % (11.0-16.0); White Blood Count 8.9 X10*3/uL (4.8-10.8)
[2020-11-29 07:11] LABS: Anion Gap 8 (12-20); Blood Urea Nitrogen 17 mg/dL (9-16); Calcium 7.9 mg/dL (8.4-10.2); Carbon Dioxide 27 mmol/L (22-29); Chloride 107 mmol/L (96-108); Creatinine Clr Calc Pharmacy 91.8; Estimated Glomerular Filt Rate > 60; Glucose Random 81 mg/dL (60-115); Potassium 4.1 mmol/L (3.3-5.1); Sodium 138 mmol/L (135-145)
[2020-11-29 08:00] VITALS: BP 138/75; PULSE 67; RESP 18; TEMP 36.6; O2SAT 97
[2020-11-29 11:07] VITALS: BP 129/69; PULSE 74; RESP 16; TEMP 37; O2SAT 96
[2020-11-29 12:52] LABS: Vancomycin Trough 12.7 mcg/mL (10.0-20.0)
--- NOTE | 2020-11-29 14:42 | HO.PM.IMPN ---
Subjective Subjective Date of Service: 11/29/20 Interval History: the patient was seen and evaluated this morning Laying in bed, feels comfortable overall but complaining of pain his right lower extremity Denies any fever, chills or shortness of breath No reported other overnight events. Systemic review: No fever, chills or weakness No chest pain, palpitation No shortness of breath or coughing No abdominal pain, nausea or vomiting No urinary symptoms Right lower extremity multiple wounds with thick drainage Physical Exam Vital Signs: Vital Signs: Last Vital Signs Temp 98.6 F 11/29/20 11:07 Pulse 74 11/29/20 11:07 Resp 16 11/29/20 11:07 BP 129/69 11/29/20 11:07 Pulse Ox 96 11/29/20 11:07 Body Mass Index 26.9 Const: Other: Constitutional : Alert, oriented, not in distress Neck : Normal inspection, Supple Cardiovascular : RRR, S1 S2, no lower extremity edema Respiratory : Good bilateral air entry, no crackles, wheezes or rhonchi Gastrointestinal: soft, lax, Normal bowel sounds, Non tender Skin : Warm/Dry, multiple areas of IV tract, right lower extremity multiple wounds with areas of opening and thick drainage, dry skin Neurological : Alert & oriented x3, No focal deficit Objective Data Current Medications Generic Name Dose Route Start Last Admin Trade Name Francoq PRN Reason Stop Dose Admin Acetaminophen 650 mg 11/28/20 01:03 Acetaminophen 325 Mg Tablet PO Q6H PRN Pain, Mild (Pain Scale 1-3) Clonidine HCl 0.1 mg 11/28/20 01:03 Clonidine Hcl 0.1 Mg Tablet PO TID PRN anxiety, restlessness Protocol Docusate Sodium 100 mg 11/28/20 01:03 Docusate Sodium 100 Mg Capsule PO DAILY PRN Constipation Enoxaparin Sodium 40 mg 11/28/20 01:03 11/29/20 02:42 Enoxaparin Sodium 40 Mg/0.4 Ml Syringe SUBCUT 40 mg Q24H DAVID Administration Hydroxyzine HCl 25 mg 11/28/20 01:03 Hydroxyzine Hcl 25 Mg Tablet PO Q6H PRN anxiety/restlessness Piperacillin Sod/Tazobactam 50 mls @ 100 mls/hr 11/28/20 06:00 11/29/20 12:51 Sod 3.375 gm/ Sodium Chloride IV Infused Q6H DAVID Infusion Vancomycin HCl 1,000 mg/ 270 mls @ 270 mls/hr 11/28/20 13:00 11/29/20 13:42 Sodium Chloride IV 270 mls/hr Q12H DAVID Administration Morphine Sulfate 2 mg 11/29/20 07:59 Morphine Sulfate 4 Mg/Ml Cartridge IVPUSH Q4H PRN Pain, Severe (Pain Scale 7-10) Ondansetron HCl 4 mg 11/28/20 01:03 Ondansetron Hcl 4 Mg/2 Ml Vial IVPUSH Q8H PRN Nausea and Vomiting Pharmacy Consult 1 each 11/28/20 01:03 Consult Rx Vancomycin Dosing MISCELLANE DAILY PRN Consult order Sodium Chloride 3 ml 11/28/20 08:00 11/29/20 09:25 0.9 % Sodium Chloride Flush 3 Ml Syringe IVFLUSH 3 ml QSHIFT DAVID Administration Labs CBC & Chem 7: 11/29/20 05:10 11/29/20 05:10 Assessment and Plan (1) Chronic cutaneous venous stasis ulcer: Status: Inactive (2) Infected wound: Status: Acute (3) Opioid use disorder: Status: Acute (4) Cellulitis: Status: Acute Assessment and Plan: 64-year-old male with past medical history of IV drug use as well as cocaine use presents to the hospital with complaints of 1 week history of pain as well as inflammation of his right lower extremity Right lower extremity cellulitis chronic venous stasis ulcer, worsening Pending cultures continue broad-spectrum antibiotics including vancomycin and Zosyn To get general and vascular surgery evaluation polysubstance abuse disorder abuses heroin as well as cocaine Continue on clonidine for possible withdrawal as well as hydroxyzine monitor for withdrawal symptoms hep C and liver cirrhosis no evidence of decompensation continue to monitor DVT prophylaxis Lovenox
[2020-11-29 15:21] VITALS: BP 118/63; PULSE 77; RESP 18; TEMP 37.2; O2SAT 95
[2020-11-29 19:35] VITALS: BP 116/62; PULSE 79; RESP 18; TEMP 36.6; O2SAT 96
[2020-11-29 23:59] VITALS: BP 124/65; PULSE 77; RESP 15; TEMP 37.1; O2SAT 97
[2020-11-30] VITALS (7 sets, daily range): BP systolic 117–140; BP diastolic 56–78; PULSE 66–75; RESP 12–20; TEMP 36.2–36.8; O2SAT 95–100
[2020-11-30] MEDS: 0.9 % Sodium Chloride Flush 3 ML SYRINGE IVFLUSH ×4 (00:26→23:54)
[2020-11-30] MEDS: Piperacillin Sodium/Tazobactam 3.375 GM in 0.9 % Sodium Chloride 50 ML IV ×5 (00:26→23:54)
[2020-11-30] MEDS: Enoxaparin Sodium 40 MG/0.4 ML SYRINGE SUBCUT (01:09)
[2020-11-30] MEDS: vancomycin HCL 1,000 MG in 0.9 % Sodium Chloride 250 ML 270 MG IV ×2 (01:09→12:38)
[2020-11-30 07:35] LABS: Anion Gap 10 (12-20); Blood Urea Nitrogen 15 mg/dL (9-16); Calcium 8.1 mg/dL (8.4-10.2); Carbon Dioxide 23 mmol/L (22-29); Chloride 108 mmol/L (96-108); Creatinine Clr Calc Pharmacy 89.7; Estimated Glomerular Filt Rate > 60; Glucose Random 87 mg/dL (60-115); Potassium 4.2 mmol/L (3.3-5.1); Sodium 137 mmol/L (135-145)
--- NOTE | 2020-11-30 08:18 | MHC.CM.PN ---
Patient has an IVDA history and hx of Cocaine and is presently requiring IV ABT for (R) LE Cellulitis.If LT IVABT is needed, his only options for dc are [facility] and [facility]. Referrals have been made to both these facilities and CM will continue to follow for dc planning.
--- NOTE | 2020-11-30 09:50 | P.CONGS_ITS ---
History of Present Illness Consult details Consult date: 11/30/20 Reason for consult: wound care Narrative: 64-year-old gentleman known to me in the past presents for nonhealing right lower extremity ulceration. They have been going on for sometime now they are quite painful and uncomfortable for him. He has had prior testing done as an outpatient inclusive of arterial and venous testing. He now presents to us for vascular evaluation regarding nonhealing ulcers. Review of Systems Review of Systems: Yes all other systems are reviewed and are negative Constitutional: Constitutional: Reports no additional constitutional complaints ENT: Reports Normal hearing present Cardiovascular: Cardiovascular: Denies chest pain, Denies chest pain at rest, Denies chest pain with activity and Denies pedal edema Respiratory: Respiratory: Denies cough Gastrointestinal: Gastrointestinal: Denies abdominal pain Musculoskeletal: Musculoskeletal: Denies abnormal gait, Denies muscle cramps and Denies radiating pain into limb Integumentary/Breasts: Skin/Breast: Denies skin ulcer and Denies wounds Neurologic: Reports Normal hearing present and Denies abnormal gait Psychiatric: Psychiatric: Reports no additional psychiatric complaints [facility] Past Medical History Medical History (Updated 11/30/20 @ 09:53 by Bassem Birmingham MD) Anemia Chronic cutaneous venous stasis ulcer Cirrhosis Depression Hepatitis C Polysubstance abuse Tobacco dependence Family History Family History Mother CAD (coronary artery disease) ESRD (end stage renal disease) Brother Liver failure Surgical History Surgical History H/O hernia repair Social History Social History Household Members: Friend(s) Housing: Apartment Do you presently have visiting nurse or other home services: No ([facility] doesnt see him anymore) Alcohol intake: never Smoking Status: Current every day smoker Tobacco Type: Cigarette Cigarettes Per Day: 2 Smoked in Last 30 Days: Yes Second Hand Smoke Exposure: No Use of substances other than those prescribed or required for medical reasons: Yes Substance Use Type: Heroin Substance Use Frequency: Daily Last Used Substance: Just Prior to Admission Currently Displaying Signs/Symptoms of Drug Intoxication Withdrawal: No Any prior treatment program specific to substance use: Yes Have you been hit, kicked, punched, or otherwise hurt by someone within the past year? If so, by whom?: No Do you feel safe in your current relationship?: No Current Relationship Is there a partner from a previous relationship who is making you feel unsafe no w?: No Are you made to feel afraid or neglected: No Advance Directives: No Advance Directives Information Provided: Yes Do you have thoughts of harming others: None Do you have a plan to hurt others: No Plan Recently lost weight without trying: No service: No Current occupational status: unemployed and disabled Meds Allergies Allergy/AdvReac Type Severity Reaction Status Date / Time trazodone [TRAZODONE] Allergy Intermediate RESTLESS Verified 09/17/20 11:21 LEGS Active Medications: Current Medications Generic Name Dose Route Start Last Admin Trade Name Freq PRN Reason Stop Dose Admin Acetaminophen 650 mg 11/28/20 01:03 Acetaminophen 325 Mg Tablet PO Q6H PRN Pain, Mild (Pain Scale 1-3) Clonidine HCl 0.1 mg 11/28/20 01:03 Clonidine Hcl 0.1 Mg Tablet PO TID PRN anxiety, restlessness Protocol Docusate Sodium 100 mg 11/28/20 01:03 Docusate Sodium 100 Mg Capsule PO DAILY PRN Constipation Enoxaparin Sodium 40 mg 11/28/20 01:03 11/30/20 01:09 Enoxaparin Sodium 40 Mg/0.4 Ml Syringe SUBCUT 40 mg Q24H DAVID Administration Hydroxyzine HCl 25 mg 11/28/20 01:03 Hydroxyzine Hcl 25 Mg Tablet PO Q6H PRN anxiety/restlessness Piperacillin Sod/Tazobactam 50 mls @ 100 mls/hr 11/28/20 06:00 11/30/20 07:03 Sod 3.375 gm/ Sodium Chloride IV Infused Q6H DAVID Infusion Vancomycin HCl 1,000 mg/ 270 mls @ 270 mls/hr 11/28/20 13:00 11/30/20 02:29 Sodium Chloride IV Infused Q12H DAVID Infusion Ondansetron HCl 4 mg 11/28/20 01:03 Ondansetron Hcl 4 Mg/2 Ml Vial IVPUSH Q8H PRN Nausea and Vomiting Oxycodone HCl 5 mg 11/30/20 09:47 Oxycodone Hcl Immed Release 5 Mg Tablet PO Q6H PRN Pain, Severe (Pain Scale 7-10) Pharmacy Consult 1 each 11/28/20 01:03 Consult Rx Vancomycin Dosing MISCELLANE DAILY PRN Consult order Sodium Chloride 3 ml 11/28/20 08:00 11/30/20 07:28 0.9 % Sodium Chloride Flush 3 Ml Syringe IVFLUSH 3 ml QSHIFT [facility] Administration Home Medications Medication Instructions Recorded Confirmed Last Taken Type fluoxetine [Prozac] 10 mg PO DAILY 06/25/20 06/25/20 Unknown History Physical Exam Vital Signs: Vital Signs: Last Vital Signs Temp 98.2 F 11/30/20 07:26 Pulse 73 11/30/20 07:26 Resp 20 11/30/20 07:26 BP 140/78 H 11/30/20 07:26 Pulse Ox 97 11/30/20 07:26 Body Mass Index 26.9 Const: General: cooperative, healthy appearing and comfortable Orientation/consciousness: oriented to person, oriented to place and oriented to time HENMT: Head: Yes normal to inspection Neck: Neck: Yes normal visual inspection Carotids: no bruits Chest: Chest palpation & inspection: normal inspection of the chest Resp: Effort & Inspection: normal respiratory effort and able to speak in c omplete sentences Auscultation: clear to auscultation bilaterally, no broomcorn scraper ckles, no rales, no rhonchi and no wheezes Cardio: Rate: regular rate Rhythm: regular rhythm Heart sounds: S1 normal heart sound present and S2 normal heart sound present Bruits: no carotid bruits Peripheral pulses: Peripheral pulses 2+ throughout GI: Inspection: Yes normal to inspection Skin: Wounds: wounds noted (Right lower extremity multiple superficial wounds, no collections noted) Hair: normal Neuro: General: oriented to person, oriented to place and oriented to time Cranial nerves: Yes CN's II-XII intact bilaterally and Yes Normal hearing present Cognition (Neuro): normal cognition Motor exam (neuro): 5/5 motor strength present throughout Extrem: Other: venous exam: No significant superficial varicosities or spide r telangiectasias, minimal edema General: No clubbing, No cyanosis and No edema Psych: Appearance: grossly normal Mental Status: mental status grossly normal Speech and movement: Normal speech and movement present Results Labs Result diagrams: 11/29/20 05:10 11/30/20 05:47 Labs: Abnormal lab results 11/30/20 Range/Units 05:47 Anion Gap 10 L (12-20) Calcium 8.1 L (8.4-10.2) mg/dL BMP 11/30/20 05:47 Sodium 137 Potassium 4.2 Chloride 108 Carbon Dioxide 23 BUN 15 Creatinine 0.87 Calcium 8.1 L All other labs normal. Imaging Additional studies: Ultrasound arterial from 06/26/2020 - within normal limits Venous testing from 09/03/2020 demonstrates bilateral venous reflux Assessment and Plan (1) Varicose veins of right lower extremity with inflammation: Status: Acute In short patient has nonhealing right lower extremity ulcer. This continues to persist. At the current time would recommend local wound care. I have written orders for the nursing to provide local dressing changes daily. In addition he does need to follow up with me as an outpatient for venous ablation. In terms of his arterial status it is within normal limits an I am able to appreciate palpable pulses. No additional testing is required. He can follow up with me as an outpatient. Thank you for allowing us to participate in his care. If there are any questions or concerns please do not hesitate to contact us.
[2020-11-30] MEDS: oxyCODONE HCl Immed Release 5 MG TABLET PO ×2 (11:08→22:00)
--- NOTE | 2020-11-30 12:31 | HO.WOUNDCONS ---
History of Present Illness Data of Consult Service Date: 11/30/20 Primary Care Provider: Brandee Grey MD [facility] Reason for consult: Right lower extremity wounds 64-year-old male well known to the wound clinic generally seen weekly for venous insufficiency and poor healing of the right lower extremity. Back in September, he required hospitalization and IV antibiotics for full thickness right leg wounds. We sent him to the emergency department on MondayNovember 27 because he presented with significant pain and swelling of the right leg with concern for acute cellulitis after a hiatus from regular wound care visits. He is on IV vancomycin and Zosyn. He is feeling much better. The pain is much less. He saw Dr. Birmingham who will see him on an outpatient basis for venous insufficiency. Review of Systems Review of Systems: Pain is improved. Reports drainage. Ambulating better. No belly pain Yes all other systems are reviewed and are negative [facility] Medical History (Updated 11/30/20 @ 09:53 by Bassem Birmingham MD) Anemia Chronic cutaneous venous stasis ulcer Cirrhosis Depression Hepatitis C Polysubstance abuse Tobacco dependence Family History Mother CAD (coronary artery disease) ESRD (end stage renal disease) Brother Liver failure Surgical History H/O hernia repair Social History Household Members: Friend(s) Housing: Apartment Do you presently have visiting nurse or other home services: No (Vna doesnt see him anymore) Alcohol intake: never Smoking Status: Current every day smoker Tobacco Type: Cigarette Cigarettes Per Day: 2 Smoked in Last 30 Days: Yes Second Hand Smoke Exposure: No Use of substances other than those prescribed or required for medical reasons: Yes Substance Use Type: Heroin Substance Use Frequency: Daily Last Used Substance: Just Prior to Admission Currently Displaying Signs/Symptoms of Drug Intoxication Withdrawal: No Any prior treatment program specific to substance use: Yes Have you been hit, kicked, punched, or otherwise hurt by someone within the past year? If so, by whom?: No Do you feel safe in your current relationship?: No Current Relationship Is there a partner from a previous relationship who is making you feel unsafe now?: No Are you made to feel afraid or neglected: No Advance Directives: No Advance Directives Information Provided: Yes Do you have thoughts of harming others: None Do you have a plan to hurt others: No Plan Recently lost weight without trying: No service: No Current occupational status: unemployed and disabled Meds Allergies Allergy/AdvReac Type Severity Reaction Status Date / Time trazodone [TRAZODONE] Allergy Intermediate RESTLESS Verified 09/17/20 11:21 LEGS Active Medications: Current Medications Generic Name Dose Route Start Last Admin Trade Name Freq PRN Reason Stop Dose Admin Acetaminophen 650 mg 11/28/20 01:03 Acetaminophen 325 Mg Tablet PO Q6H PRN Pain, Mild (Pain Scale 1-3) Clonidine HCl 0.1 mg 11/28/20 01:03 Clonidine Hcl 0.1 Mg Tablet PO TID PRN anxiety, restlessness Protocol Docusate Sodium 100 mg 11/28/20 01:03 Docusate Sodium 100 Mg Capsule PO DAILY PRN Constipation Enoxaparin Sodium 40 mg 11/28/20 01:03 11/30/20 01:09 Enoxaparin Sodium 40 Mg/0.4 Ml Syringe SUBCUT 40 mg Q24H DAVID Administration Hydroxyzine HCl 25 mg 11/28/20 01:03 Hydroxyzine Hcl 25 Mg Tablet PO Q6H PRN anxiety/restlessness Piperacillin Sod/Tazobactam 50 mls @ 100 mls/hr 11/28/20 06:00 11/30/20 11:44 Sod 3.375 gm/ Sodium Chloride IV Infused Q6H DAVID Infusion Vancomycin HCl 1,000 mg/ 270 mls @ 270 mls/hr 11/28/20 13:00 11/30/20 02:29 Sodium Chloride IV Infused Q12H DAVID Infusion Ondansetron HCl 4 mg 11/28/20 01:03 Ondansetron Hcl 4 Mg/2 Ml Vial IVPUSH Q8H PRN Nausea and Vomiting Oxycodone HCl 5 mg 11/30/20 09:47 11/30/20 11:08 Oxycodone Hcl Immed Release 5 Mg Tablet PO 5 mg Q6H PRN Administration Pain, Severe (Pain Scale 7-10) Pharmacy Consult 1 each 11/28/20 01:03 Consult Rx Vancomycin Dosing MISCELLANE DAILY PRN Consult order Sodium Chloride 3 ml 11/28/20 08:00 11/30/20 07:28 0.9 % Sodium Chloride Flush 3 Ml Syringe IVFLUSH 3 ml QSHIFT [facility] Administration Home Medications Medication Instructions Recorded Confirmed Last Taken Type fluoxetine [Prozac] 10 mg PO DAILY 06/25/20 06/25/20 Unknown History Physical Exam Vital Signs and Narrative: Vital Signs: Last Vital Signs Temp 98.2 F 11/30/20 07:26 Pulse 70 11/30/20 11:46 Resp 20 11/30/20 11:46 BP 130/65 11/30/20 11:46 Pulse Ox 95 11/30/20 11:46 Body Mass Index 26.9 The patient is awake and fully alert. He can converse fluently without difficulty in Thai. His right lower extremity is dressed with Xeroform, dried roll or gauze and an Abram wrap. This is gently removed and reapplied after reviewing the wounds. Above vital signs are noted. There is significant improvement of redness and edema of the leg with the initiation of IV antibiotics. There is maceration from drainage and adherent slough in the ulcers of the right lower leg. There is open wound of the dorsal 4th and 5th toes with macerated slough. The 4th and 5th digits are purple lacking brisk capillary refill. Results Labs CBC and Chem 7: 11/29/20 05:10 11/30/20 05:47 Labs: Laboratory Results - last 24 hr 11/29/20 11/30/20 12:06 05:47 Anion Gap 10 L Estim Creat Clear Calc 89.7 Estimated GFR > 60 Random Glucose 87 Calcium 8.1 L Vancomycin Trough 12.7 Assessment and Plan (1) Infected wound: Start date: 11/30/20 Status: Acute The the appearance of acute cellulitis has improved with Zosyn and vancomycin. Infectious disease consultation is left to the discretion of the hospitalist. Imperative that the patient complete appropriate antibiotics for full resolution of infection given long-standing open wounds. Outpatient venous followup with Dr. Birmingham has been arranged. It does not appear that other surgical intervention is necessary based on this note. Patient may followup in the wound clinic for next available appointment at which time sharp mechanical debridement can be resumed with the goal of full wound healing. Xeroform is a reasonable option for dressing changes though it does not allow for drainage without maceration. An alternative suggestion is a more absorbent choice such as calcium alginate with silver. Dry guaze and ABRAM wrap are appropriate. Consider pursuit of nursing home social worker consultation if patient is willing as patient has resumed IV drug abuse, contributing to this clinical picture. (2) Cellulitis: Status: Acute (3) Varicose veins of right lower extremity with inflammation: Status: Acute
[2020-11-30] MEDS: Acetaminophen 325 MG TABLET 650 MG PO (12:43)
[2020-11-30] MEDS: cloNIDine HCL 0.1 MG TABLET PO ×2 (12:43→22:00)
--- NOTE | 2020-11-30 14:27 | HO.PM.IMPN ---
Subjective Subjective Date of Service: 11/30/20 Interval History: the patient was seen and evaluated this morning Laying in bed, feels comfortable overall but complaining of pain his right lower extremity Denies any fever, chills or shortness of breath No reported other overnight events. Systemic review: No fever, chills or weakness No chest pain, palpitation No shortness of breath or coughing No abdominal pain, nausea or vomiting No urinary symptoms Right lower extremity multiple wounds with thick drainage Physical Exam Vital Signs: Vital Signs: Last Vital Signs Temp 98.2 F 11/30/20 07:26 Pulse 70 11/30/20 11:46 Resp 20 11/30/20 11:46 BP 130/65 11/30/20 11:46 Pulse Ox 95 11/30/20 11:46 Body Mass Index 26.9 Const: Other: Constitutional : Alert, oriented, not in distress Neck : Normal inspection, Supple Cardiovascular : RRR, S1 S2, no lower extremity edema Respiratory : Good bilateral air entry, no crackles, wheezes or rhonchi Gastrointestinal: soft, lax, Normal bowel sounds, Non tender Skin : Warm/Dry, multiple areas of IV tract, right lower extremity multiple wounds with areas of opening and thick drainage, dry skin Neurological : Alert & oriented x3, No focal deficit Objective Data Current Medications Generic Name Dose Route Start Last Admin Trade Name Francoq PRN Reason Stop Dose Admin Acetaminophen 650 mg 11/28/20 01:03 11/30/20 12:43 Acetaminophen 325 Mg Tablet PO 650 mg Q6H PRN Administration Pain, Mild (Pain Scale 1-3) Clonidine HCl 0.1 mg 11/28/20 01:03 11/30/20 12:43 Clonidine Hcl 0.1 Mg Tablet PO 0.1 mg TID PRN Administration anxiety, restlessness Protocol Docusate Sodium 100 mg 11/28/20 01:03 Docusate Sodium 100 Mg Capsule PO DAILY PRN Constipation Enoxaparin Sodium 40 mg 11/28/20 01:03 11/30/20 01:09 Enoxaparin Sodium 40 Mg/0.4 Ml Syringe SUBCUT 40 mg Q24H DAVID Administration Hydroxyzine HCl 25 mg 11/28/20 01:03 Hydroxyzine Hcl 25 Mg Tablet PO Q6H PRN anxiety/restlessness Piperacillin Sod/Tazobactam 50 mls @ 100 mls/hr 11/28/20 06:00 11/30/20 11:44 Sod 3.375 gm/ Sodium Chloride IV Infused Q6H DAVID Infusion Vancomycin HCl 1,000 mg/ 270 mls @ 270 mls/hr 11/28/20 13:00 11/30/20 13:40 Sodium Chloride IV Infused Q12H DAVID Infusion Ondansetron HCl 4 mg 11/28/20 01:03 Ondansetron Hcl 4 Mg/2 Ml Vial IVPUSH Q8H PRN Nausea and Vomiting Oxycodone HCl 5 mg 11/30/20 09:47 11/30/20 11:08 Oxycodone Hcl Immed Release 5 Mg Tablet PO 5 mg Q6H PRN Administration Pain, Severe (Pain Scale 7-10) Pharmacy Consult 1 each 11/28/20 01:03 Consult Rx Vancomycin Dosing MISCELLANE DAILY PRN Consult order Sodium Chloride 3 ml 11/28/20 08:00 11/30/20 07:28 0.9 % Sodium Chloride Flush 3 Ml Syringe IVFLUSH 3 ml QSHIFT DAVID Administration Labs CBC & Chem 7: 11/29/20 05:10 11/30/20 05:47 Assessment and Plan (1) Chronic cutaneous venous stasis ulcer: Status: Inactive (2) Infected wound: Status: Acute (3) Opioid use disorder: Status: Acute (4) Cellulitis: Status: Acute Assessment and Plan: 64-year-old male with past medical history of IV drug use as well as cocaine use presents to the hospital with complaints of 1 week history of pain as well as inflammation of his right lower extremity Right lower extremity cellulitis chronic venous stasis ulcer, worsening Negative cultures continue broad-spectrum antibiotics including vancomycin and Zosyn Vascular surgeon put appreciated, follow-up as outpatient and local wound care with wound clinic polysubstance abuse disorder abuses heroin as well as cocaine Continue on clonidine for possible withdrawal as well as hydroxyzine monitor for withdrawal symptoms hep C and liver cirrhosis no evidence of decompensation continue to monitor DVT prophylaxis Lovenox
[2020-12-01] MEDS: vancomycin HCL 1,000 MG in 0.9 % Sodium Chloride 250 ML 270 MG IV ×2 (01:04→12:23)
[2020-12-01] MEDS: Enoxaparin Sodium 40 MG/0.4 ML SYRINGE SUBCUT (01:04)
[2020-12-01 03:18] VITALS: BP 117/56; PULSE 71; RESP 19; TEMP 36.7; O2SAT 98
[2020-12-01 05:41] VITALS: BP 117/56; PULSE 71
[2020-12-01] MEDS: oxyCODONE HCl Immed Release 5 MG TABLET PO ×2 (05:41→11:23)
[2020-12-01] MEDS: cloNIDine HCL 0.1 MG TABLET PO (05:41)
[2020-12-01] MEDS: Piperacillin Sodium/Tazobactam 3.375 GM in 0.9 % Sodium Chloride 50 ML IV ×2 (05:48→11:19)
[2020-12-01 06:44] LABS: Anion Gap 11 (12-20); Blood Urea Nitrogen 16 mg/dL (9-16); Calcium 8.4 mg/dL (8.4-10.2); Carbon Dioxide 22 mmol/L (22-29); Chloride 108 mmol/L (96-108); Creatinine Clr Calc Pharmacy 84.8; Estimated Glomerular Filt Rate > 60; Glucose Random 88 mg/dL (60-115); Potassium 4.1 mmol/L (3.3-5.1); Sodium 137 mmol/L (135-145)
[2020-12-01] MEDS: 0.9 % Sodium Chloride Flush 3 ML SYRINGE IVFLUSH (07:38)
[2020-12-01 07:46] VITALS: BP 140/75; PULSE 55; RESP 20; TEMP 36.4; O2SAT 98
[2020-12-01] MEDS: hydrOXYzine HCL 25 MG TABLET PO (11:24)
[2020-12-01 11:31] VITALS: BP 139/62; PULSE 76; RESP 20; O2SAT 97
--- NOTE | 2020-12-01 11:49 | P.DS_ITS ---
DS: Providers Provider Date of Service: 12/01/20 Date of admission: 11/28/20 00:53 Primary care physician: Brandee Grey MD Consults: 11/28/20 01:03 Consult to Wound Care Routine Consulting Provider: Kianna Cao Reason for consultation: wound care Has provider been notified: No 11/29/20 10:37 Consult to General Surgery Routine Consulting Provider: Arlin Carlisle Reason for consultation: RLE multiple wounds for possible debridement 11/29/20 12:38 Consult to Vascular Surgery Routine Consulting Provider: Bassem Birmingham Reason for consultation: Worsening RLE venous wounds for your kind eval. DS: Diagnosis Discharge Diagnosis (1) Chronic cutaneous venous stasis ulcer: Status: Inactive (2) Infected wound: Status: Acute (3) Opioid use disorder: Status: Acute (4) Cellulitis: Status: Acute DS: Medications Discharge Medications Home Medications: Home Medications Medication Instructions Recorded Confirmed fluoxetine [Prozac] 10 mg PO DAILY 06/25/20 06/25/20 Previous Rx's Medication Instructions Recorded amoxicillin-pot clavulanate 1 tab PO Q12H #14 tab 12/01/20 [Augmentin] doxycycline monohydrate 100 mg PO BID #14 cap 12/01/20 DS: Summary Hospital Course Hospital Course: Admission note HPI 64-year-old male with past medical history of IV drug abuse, hepatitis-C, liver cirrhosis, presented to the hospital with complaints of nonhealing chronic right lower extremity wounds. Patient reports that he has had these wounds for many years but about 1 week ago they started hurting him, developed redness, drainage. The pain is 10/10, in the foot and rivera area, nonradiating. Relieved with medication he received in the ED. Denies any fever chills, no chest pain, shortness of breath, no headache or change in vision, no cough or sputum production, no diarrhea constipation, no abdominal pain, nausea vomiting, no urinary symptoms and no weakness numbness or tingling To the ED hemodynamically stable with no significant abnormal vitals Showed WBC count 9.0, hemoglobin of 10.6 which is around his baseline, sodium of 137, potassium of 4.0, COVID-19 negative, labs otherwise unremarkable Hospital care Patient admitted for evaluation of right lower extremity cellulitis and worsening of venous stasis ulcers. He was treated with broad-spectrum antibio tic of vancomycin and Zosyn with good response as cellulitis almost resolved with significant improvement in the wounds. Evaluated by wound care team who recommended to continue follow-up in the wound clinic and was seen by Dr. Birmingham from vascular surgery who recommended to continue antibiotic treatment for now and follow-up as outpatient for venous ablation surgery. Continue Augmentin and doxycycline for 1 more week To follow-up with Dr. Birmingham office for arrangement for venous ablation surgery Time Spent with Patient Time attestation: Total time spent providing and/or coordinating discharge services: Discharge coordination time: Greater than 30 minutes Physical Exam Vital Signs: Vital Signs: Last Vital Signs Temp 97.6 F 12/01/20 07:46 Pulse 76 12/01/20 11:31 Resp 20 12/01/20 11:31 BP 139/62 12/01/20 11:31 Pulse Ox 97 12/01/20 11:31 Body Mass Index 26.9 Const: Other: Constitutional : Alert, oriented, not in distress Neck : Normal inspection, Supple Cardiovascular : RRR, S1 S2, no lower extremity edema Respiratory : Good bilateral air entry, no crackles, wheezes or rhonchi Gastrointestinal: soft, lax, Normal bowel sounds, Non tender Skin : Warm/Dry, multiple areas of IV tract, right lower extremity multiple clean wounds covered with dressing, dry skin Neurological : Alert & oriented x3, No focal deficit DS: Data Data Completed and Pending Labs on day of discharge: Laboratory Results - last 24 hr 12/01/20 12/01/20 00:09 05:36 Sodium 137 Potassium 4.1 Chloride 108 Carbon Dioxide 22 Anion Gap 11 L BUN 16 Creatinine 0.92 Estim Creat Clear Calc 84.8 Estimated GFR > 60 Random Glucose 88 Calcium 8.4 Vancomycin Trough 17.0 Discharge Plan Discharge Patient Disposition: Home, Self-Care Discharge Diagnosis: Right lower extremity cellulitis Venous stasis ulcers Referrals: Brandee Grey MD [Primary Care Provider] - 1 Week Discharge Medications: New amoxicillin-pot clavulanate [Augmentin] 875-125 mg tablet 1 tab PO Q12H Qty: 14 RF: 0 doxycycline monohydrate 100 mg capsule 100 mg PO BID Qty: 14 RF: 0 Continued fluoxetine [Prozac] 10 mg Capsule 10 mg PO DAILY RF: 0 Discharge Orders: Discharge Order (Routine); Ordered 12/01/20 Ordered By: Miah Montenegro Diet: advance to usual diet Activity on Discharge: As tolerated Stand Alone Forms: Patient Portal Discharge page Care Plan Goals: Read below Health Concerns: Read below Plan of Treatment: You were admitted to the hospital for evaluation of worsening right lower extremity wounds. Treated with IV antibiotics as your blood cultures remain negative. Evaluated by Dr. Birmingham from vascular surgery who recommended local wound care and to follow-up as outpatient for arrangement for venous ablation surgery. Assessment: Continue Augmentin and doxycycline for 1 more week To follow-up with Dr. Birmingham office for arrangement for venous ablation surgery
--- NOTE | 2020-12-01 12:38 | MHC.CM.PN ---
Discharge today Male 64 DX cellulitis non healing wounds. [facility] The Pt arranged for his own transportation.
== END 2020-12-01 13:45 | disposition home or self-care (01) | DRG 197 ==
LOC: HO.ED 11-28 00:53 → HO.EDOVER 11-28 04:07 → HO.IMC 11-28 04:25
PROVIDERS: Admitting Provider Internal Medicine; Emergency Provider Internal Medicine; PCP Family Medicine; Visit Provider Student in an Organized Health Care Education/Training Program
DX: I87.311 Chronic venous hypertension (idiopathic) with ulcer of right lower extremity (principal); K74.60 Unspecified cirrhosis of liver; L03.115 Cellulitis of right lower limb; F17.210 Nicotine dependence, cigarettes, uncomplicated; Z71.6 Tobacco abuse counseling; L97.219 Non-pressure chronic ulcer of right calf with unspecified severity; B19.20 Unspecified viral hepatitis C without hepatic coma; F14.13 Cocaine abuse, unspecified with withdrawal; F11.13 Opioid abuse with withdrawal; Z20.822 Contact with and (suspected) exposure to COVID-19; Z79.899 Other long term (current) drug therapy
CPT/HCPCS: 36415; 80048; 80202; 85025; 87635; 96365; 96366; 96375; 99285; J1650; J2060; J2270; J2543; J3370

== ENCOUNTER 2021-02-08 21:59 | Inpatient (IN) | payer MEDICAID, SELFPAY ==
--- NOTE | ~2021-02-08 | CT_ITS ---
EXAMINATION: CT LOWER LEG, RIGHT WITH CONTRAST CLINICAL INFORMATION: Leg ulcers, cellulitis, discharge COMPARISON: None TECHNIQUE: Multidetector volumetric imaging of the right lower extremity performed after administration of 85 mL of Omnipaque 350 IV contrast. Coronal and sagittal reformatted images are obtained and reviewed. This CT examination was performed using dose optimization techniques as appropriate, variously including the following: *Automated exposure control *Adjustment of mA and/or kV according to patient size (this includes techniques or standardized protocols for targeted exams where dose is matched to indication/reason for exam; i.e. extremities or head) *Use of iterative reconstruction technique DLP: 340 mGy-cm FINDINGS: No fracture or cortical disruption. No osseous erosion. Periosteal reaction noted along the tibia and fibula. Appropriate alignment at the knee and ankle. Trace knee joint effusion. Diffuse superficial edema throughout the lower extremity. Associated skin thickening. There is no superficial collection. Superficial varices are present. Edema seen throughout the deep muscular fascial planes. No definite fluid collection. Heterogeneous enhancement of the anterior compartment musculature, particularly of the tibialis anterior. This may represent myositis. No deep collection. CT/CT lower leg RT w con IMPRESSION: Prominent soft tissue thickening with edema throughout the subcutaneous tissues as well as in the deep compartment along the musculature. No drainable fluid collection seen. Suspect myositis involving the tibialis anterior muscle. No osseous erosion. There is periosteal reaction of the tibia and fibula loosely. This can be seen with chronic venous insufficiency. Chronic infection is also possible with this appearance.
[2021-02-08 22:09] VITALS: BP 133/69; PULSE 97; RESP 16; TEMP 37.2; O2SAT 98; BMI 26.5
--- NOTE | 2021-02-08 23:23 | PC.NURSE ---
dressing of right foot/leg removed by this tech. no new dressing applied to allow MD to evaluate. patient tearful at this time but denying pain.
[2021-02-08 23:45] VITALS: BP 137/73; PULSE 80; RESP 20; TEMP 36.9; O2SAT 99
[2021-02-08 23:46] LABS: Basophils Absolute Auto 0.1 X10*3/uL (0.0-0.2); Basophils Percent Auto 0.6 % (0-2); Eosinophils Absolute Auto 0.4 X10*3/uL (0.0-0.4); Eosinophils Percent Auto 3.9 % (0-4); Hematocrit 32.4 % (42-52); Hemoglobin 10.3 g/dl (14.0-18.0); Imm Gran Abs Auto 0.04 X10*3/uL (0.00-0.03); Imm Gran Pct Auto 0.4 % (0.0-0.4); Lymphocytes Absolute Auto 1.2 X10*3/uL (1.2-4.9); Lymphocytes Percent Auto 12.8 % (20-40); MANUAL DIFF FLAG NO; Mean Corpuscular HGB Conc 31.8 g/dl (31.0-36.0); Mean Corpuscular Hemoglobin 25.9 pg (27.0-33.0); Mean Corpuscular Volume 81.4 fL (80-98); Mean Platelet Volume 9.4 fL (9.4-12.4); Monocytes Absolute Auto 1.5 X10*3/uL (0.1-1.2); Monocytes Percent Auto 16.2 % (2-11); Neutrophils Percent Auto 66.1 % (45-73); Platelet Count 206 X10*3/uL (160-400); Red Blood Count 3.98 X10*6/uL (4.60-5.80); Red Cell Distribution Width 16.8 % (11.0-16.0)
[2021-02-08 23:52] LABS: INTERNATIONAL NORM RATIO 1.3 (0.9-1.1); Prothrombin Time 15.1 SEC (9.9-13.0)
--- NOTE | 2021-02-08 23:59 | ED_ITS ---
HPI - Extremity Injury (Lower) General Chief Complaint: Wound/Laceration Stated Complaint: Leg pain Time Seen by Provider: 02/08/21 22:25 Source: patient Mode of arrival: ambulatory History of Present Illness HPI Narrative: 65-year-old male with significant past medical history of IV drug use who presents with complaints of worsening low right lower extremity pain, foul smell, and known wound. Patient also reports chills but denies noel rtness of breath, chest pain / palpitations, GI symptoms. Related Data Home Medications Medication Instructions Recorded Confirmed fluoxetine [Prozac] 10 mg PO DAILY 06/25/20 06/25/20 Previous Rx's Medication Instructions Recorded amoxicillin-pot clavulanate 1 tab PO Q12H #14 tab 12/01/20 [Augmentin] doxycycline monohydrate 100 mg PO BID #14 cap 12/01/20 Allergies Allergy/AdvReac Type Severity Reaction Status Date / Time trazodone [TRAZODONE] Allergy Intermediate RESTLESS Verified 09/17/20 11:21 LEGS Review of Systems Review of Systems: Pertinent positives and negatives as stated in HPI 10 point review of systems is otherwise negative. [facility] Past Medical History Source: nursing notes reviewed Medical History Anemia Chronic cutaneous venous stasis ulcer Cirrhosis Depression Hepatitis C Infected wound Opioid use disorder Polysubstance abuse Tobacco dependence Surgical History H/O hernia repair Family History Family History Mother CAD (coronary artery disease) ESRD (end stage renal disease) Brother Liver failure Social History Social History Household Members: Friend(s) Housing: Apartment Housing Other:: rent room Do you presently have visiting nurse or other home services: No (Vna doesnt see him anymore) Alcohol intake: never Cigarettes Per Day: 2 Second Hand Smoke Exposure: No Substance Use Type: Heroin Advance Directives: No service: No Current occupational status: unemployed and disabled Physical Exam Vital Signs: Vital Signs: Last Vital Signs Temp 98.4 F 02/08/21 23:45 Pulse 80 02/08/21 23:45 Resp 20 02/08/21 23:45 BP 137/73 02/08/21 23:45 Pulse Ox 99 02/08/21 23:45 Body Mass Index 26.5 VITAL SIGNS: Reviewed. GENERAL: chronically ill, in no acute distress. HEAD: Normocephalic/atraumatic EYES: PERRLA, EOMI EARS: Ext canals without abnormality OROPHARYNX: no oral lesions noted, posterior pharynx clear LUNGS: Normal breath sounds. No adventitious sounds or accessory muscle use. SpO2<99> CARDIOVASCULAR: Regular rate and rhythm without noted murmurs, no JVD ABDOMEN: Soft, non-tender, non-distended with bowel sounds. BILATERAL UPPER EXTREMITY: Multiple track franco without noted abscesses RIGHT LOWER EXTREMITY: edematous distal lower leg, with extensive maceration and ulcerations circumferentially extending down onto the foot which is also significantly edematous and is inclusive of the toes LEFT LOWER EXTREMITY: Skin thickening and bronzing consistent with chronic venous stasis, tactile warmth, no noted ulcerations SKIN: Inspection of the skin reveals please see documentation on lower extremit ies NEUROLOGIC: Alert and oriented x 4. Strength and sensation to light touch were grossly intact x 4. Course Course Course Narrative: 65-year-old male with history and clinical presentation consistent with white gangrene but no concerns for necrotizing fasciitis given the course this patient's wound care. On review of last note from the wound care center dated 11/30/2020 patient was supposed to return for manual debridement of his right lower extremity but had been noted to have returned to IVDA. The dressing that patient had in place is suspicious for having been the same 1 that was applied at that time although cannot confirm. All results were reviewed and this case was discussed with the inpatient hospitalist who is agreeable for admission. Patient received antibiotics, lactic acid/blood cultures and will be admitted for definitive care. MDM - Extremity Injury (Lower) Lab Data Result diagrams: 02/08/21 23:37 02/08/21 23:40 Labs: Lab Results 02/08/21 02/08/21 02/08/21 Range/Units 23:37 23:37 23:37 WBC 9.0 (4.8-10.8) X10*3/uL RBC 3.98 L (4.60-5.80) X10*6/uL Hgb 10.3 L (14.0-18.0) g/dl Hct 32.4 L (42-52) % MCV 81.4 (80-98) fL MCH 25.9 L (27.0-33.0) pg MCHC 31.8 (31.0-36.0) g/dl RDW 16.8 H (11.0-16.0) % Plt Count 206 (160-400) X10*3/uL MPV 9.4 (9.4-12.4) fL Immature Gran % (Auto) 0.4 (0.0-0.4) % Neut % (Auto) 66.1 (45-73) % Lymph % (Auto) 12.8 L (20-40) % [place] % (Auto) 16.2 H (2-11) % Eos % (Auto) 3.9 (0-4) % Baso % (Auto) 0.6 (0-2) % Lymph # (Auto) 1.2 (1.2-4.9) X10*3/uL [place] # (Auto) 1.5 H (0.1-1.2) X10*3/uL Eos # (Auto) 0.4 (0.0-0.4) X10*3/uL Baso # (Auto) 0.1 (0.0-0.2) X10*3/uL Abs Immat Gran (auto) 0.04 H (0.00-0.03) X10*3/uL Absolute Neuts (auto) 6.0 (2.0-8.3) X10*3/uL Absolute Nucleated RBC 0.000 (0.0-0.012) X10*3/uL Nucleated RBC % (auto) 0.0 (0.0-0.2) /100WBC PT 15.1 H (9.9-13.0) SEC INR 1.3 H (0.9-1.1) Sodium (135-145) mmol/L Potassium (3.3-5.1) mmol/L Chloride (96-108) mmol/L Carbon Dioxide (22-29) mmol/L Anion Gap (12-20) BUN (9-16) mg/dL Creatinine (0.5-1.4) mg/dL Estim Creat Clear Calc Estimated GFR Random Glucose (60-115) mg/dL Lactic Acid 1.1 (0.5-2.0) mmol/L Calcium (8.4-10.2) mg/dL Magnesium (1.6-2.6) mg/dL Total Bilirubin (0.0-1.0) mg/dL AST (5-37) U/L ALT (0-40) U/L Alkaline Phosphatase (39-117) U/L C-Reactive Protein (< or = 0.50) mg/dL Total Protein (6.5-8.0) g/dL Albumin (3.5-5.0) g/dL 02/08/21 02/08/21 Range/Units 23:38 23:40 WBC (4.8-10.8) X10*3/uL RBC (4.60-5.80) X10*6/uL Hgb (14.0-18.0) g/dl Hct (42-52) % MCV (80-98) fL MCH (27.0-33.0) pg MCHC (31.0-36.0) g/dl RDW (11.0-16.0) % Plt Count (160-400) X10*3/uL MPV (9.4-12.4) fL Immature Gran % (Auto) (0.0-0.4) % Neut % (Auto) (45-73) % Lymph % (Auto) (20-40) % [place] % (Auto) (2-11) % Eos % (Auto) (0-4) % Baso % (Auto) (0-2) % Lymph # (Auto) (1.2-4.9) X10*3/uL [place] # (Auto) (0.1-1.2) X10*3/uL Eos # (Auto) (0.0-0.4) X10*3/uL Baso # (Auto) (0.0-0.2) X10*3/uL Abs Immat Gran (auto) (0.00-0.03) X10*3/uL Absolute Neuts (auto) (2.0-8.3) X10*3/uL Absolute Nucleated RBC (0.0-0.012) X10*3/uL Nucleated RBC % (auto) (0.0-0.2) /100WBC PT (9.9-13.0) SEC INR (0.9-1.1) Sodium 136 (135-145) mmol/L Potassium 4.1 (3.3-5.1) mmol/L Chloride 104 (96-108) mmol/L Carbon Dioxide 25 (22-29) mmol/L Anion Gap 11 L (12-20) BUN 23 H (9-16) mg/dL Creatinine 0.90 (0.5-1.4) mg/dL Estim Creat Clear Calc 85.6 Estimated GFR > 60 Random Glucose 87 (60-115) mg/dL Lactic Acid (0.5-2.0) mmol/L Calcium 8.5 (8.4-10.2) mg/dL Magnesium 2.1 (1.6-2.6) mg/dL Total Bilirubin 1.0 (0.0-1.0) mg/dL AST 55 H (5-37) U/L ALT 34 (0-40) U/L Alkaline Phosphatase 135 H D (39-117) U/L C-Reactive Protein 5.70 H (< or = 0.50) mg/dL Total Protein 7.7 (6.5-8.0) g/dL Albumin 2.6 L (3.5-5.0) g/dL Discharge Plan Discharge Clinical Impression: Polysubstance abuse, Gangrene, Cellulitis Patient Disposition: Admitted As Inpatient
[2021-02-09] VITALS (8 sets, daily range): BP systolic 111–167; BP diastolic 55–80; PULSE 65–84; RESP 14–20; TEMP 36.3–36.9; O2SAT 94–98; BMI 25.0
[2021-02-09 00:04] LABS: Lactic Acid 1.1 mmol/L (0.5-2.0)
[2021-02-09 00:09] LABS: Alanine Aminotransferase 34 U/L (0-40); Albumin Level 2.6 g/dL (3.5-5.0); Alkaline Phosphatase 135 U/L (39-117); Anion Gap 11 (12-20); Aspartate Amino Transferase 55 U/L (5-37); Blood Urea Nitrogen 23 mg/dL (9-16); Calcium 8.5 mg/dL (8.4-10.2); Carbon Dioxide 25 mmol/L (22-29); Chloride 104 mmol/L (96-108); Creatinine Clr Calc Pharmacy 85.6; Estimated Glomerular Filt Rate > 60; Glucose Random 87 mg/dL (60-115); Potassium 4.1 mmol/L (3.3-5.1); Sodium 136 mmol/L (135-145); Total Protein 7.7 g/dL (6.5-8.0)
[2021-02-09] MEDS: Piperacillin Sodium/Tazobactam 3.375 GM in 0.9 % Sodium Chloride 50 ML IV ×5 (00:13→23:44)
[2021-02-09] MEDS: vancomycin HCL 1,250 MG in 0.9 % Sodium Chloride 250 ML 166.67 MG IV (00:16)
[2021-02-09 00:17] LABS: Magnesium 2.1 mg/dL (1.6-2.6)
--- NOTE | 2021-02-09 00:23 | PM.IMHP ---
History of Present Illness Date of Service: 02/09/21 Chief Complaint: Rt leg ulcers 65-year-old male with a past medical history of varicose veins, venous stasis ulcers on the right lower extremity, polysubstance abuse, opiate dependence on methadone, depression presented to the hospital with a chief complaint of right lower extremity ulcers getting worse; patient reports that his right lower extremity venous stasis ulcers have been getting worse mainly from the past 1 week; noted mild serosanguineous discharge, complains of increased pain; hence decided to come to the ER for further evaluation. Denies any fevers. Denies any chest pain palpitations lightheadedness or dizziness. Denies any numbness tingling. Denies any GI or symptoms. Review of all other systems is negative except mentioned above ER course: Per ER team patient right lower extremity noted to have multiple ulcers -nonhealing, noted to have cellulitis, no crepitus noted, given Zosyn. Admitted for further management. FOR[facility]LY [facility] Medical History Anemia Chronic cutaneous venous stasis ulcer Cirrhosis Depression Hepatitis C Infected wound Opioid use disorder Polysubstance abuse Tobacco dependence Family History Mother CAD (coronary artery disease) ESRD (end stage renal disease) Brother Liver failure Surgical History H/O hernia repair Social History Household Members: Friend(s) Housing: Apartment Housing Other:: rent room Do you presently have visiting nurse or other home services: No Alcohol intake: never Patient Tobacco Use Status: Current everyday Tobacco user Tobacco use type: Cigarette Cigarettes Per Day: 2 e-Cigarette/Vaping Use: Never Used Second Hand Smoke Exposure: Yes Substance Use Type: Heroin service: No Current occupational status: unemployed and disabled Meds Allergies Allergy/AdvReac Type Severity Reaction Status Date / Time trazodone [TRAZODONE] Allergy Intermediate RESTLESS Verified 09/17/20 11:21 LEGS Active Medications: Current Medications Generic Name Dose Route Start Last Admin Trade Name Freq PRN Reason Stop Dose Admin Heparin Sodium (Porcine) 5,000 unit 02/09/21 00:30 Heparin Sodium,Porcine 5,000 Unit/Ml Vial SUBCUT Q8H [facility] Hydroxyzine HCl 25 mg 02/09/21 00:22 Hydroxyzine Hcl 25 Mg Tablet PO Q6H PRN anxiety/restlessness Vancomycin HCl 1,250 mg/ 250 mls @ 166.667 mls/hr 02/08/21 23:45 02/09/21 00:16 Sodium Chloride IV 02/09/21 01:14 166.67 mls/hr ONCE ONE Administration Piperacillin Sod/Tazobactam 50 mls @ 100 mls/hr 02/09/21 00:15 Sod 3.375 gm/ Sodium Chloride IV Q6H DAVID Melatonin 6 mg 02/09/21 00:17 Melatonin 3 Mg Tablet PO BEDTIME PRN Insomnia Oxycodone HCl 5 mg 02/09/21 00:17 Oxycodone Hcl Immed Release 5 Mg Tablet PO Q6H PRN Pain, Severe (Pain Scale 7-10) Pharmacy Consult 1 each 02/08/21 23:16 Consult Rx Vancomycin Dosing MISCELLANE DAILY PRN Consult order Pharmacy Consult 1 each 02/09/21 00:12 Consult Rx Vancomycin Dosing MISCELLANE DAILY PRN Consult order Senna 17.2 mg 02/09/21 00:17 Sennosides 8.6 Mg Tablet PO BEDTIME PRN Constipation Sodium Chloride 3 ml 02/09/21 08:00 0.9 % Sodium Chloride Flush 3 Ml Syringe IVFLUSH QSHIFT [facility] Home Medications Medication Instructions Recorded Confirmed Last Taken Type furosemide 20 mg PO DAILY 02/09/21 02/09/21 Unknown History methadone [Methadone Intensol] 60 mg PO DAILY 02/09/21 02/09/21 02/05/21 History Physical Exam Vital Signs and Narrative: Vital Signs: Last Vital Signs Temp 98.4 F 02/08/21 23:45 Pulse 80 02/08/21 23:45 Resp 20 02/08/21 23:45 BP 137/73 02/08/21 23:45 Pulse Ox 99 02/08/21 23:45 Body Mass Index 26.5 Gen: Appears be in no acute distress HEENT: NCAT, Moist mucosa. Pulmonary: Vesicular breath sounds, fair air entry CVS: Normal S1-S2 Abdomen: BS+, Soft, Nontender Extremities: Warm well perfused ; right lower extremity venous stasis ulcers -nonhealing, erythematous, mild serosanguineous discharge, tender to palpate, located diffusely around the like and also on the dorsum of the foot of the right lower extremity. Neuro: Alert and awake. Results Labs CBC and Chem 7: 02/11/21 05:41 02/11/21 05:41 Labs: Laboratory Results - last 24 hr 02/08/21 02/08/21 02/08/21 23:37 23:37 23:37 MCV 81.4 MCH 25.9 L MCHC 31.8 RDW 16.8 H Plt Count 206 MPV 9.4 Immature Gran % (Auto) 0.4 Neut % (Auto) 66.1 Lymph % (Auto) 12.8 L [place] % (Auto) 16.2 H Eos % (Auto) 3.9 Baso % (Auto) 0.6 Lymph # (Auto) 1.2 [place] # (Auto) 1.5 H Eos # (Auto) 0.4 Baso # (Auto) 0.1 Abs Immat Gran (auto) 0.04 H Absolute Neuts (auto) 6.0 Absolute Nucleated RBC 0.000 Nucleated RBC % (auto) 0.0 PT 15.1 H INR 1.3 H Anion Gap Estim Creat Clear Calc Estimated GFR Random Glucose Lactic Acid 1.1 Calcium Magnesium Total Bilirubin AST ALT Alkaline Phosphatase C-Reactive Protein Total Protein Albumin 02/08/21 02/08/21 23:38 23:40 MCV MCH MCHC RDW Plt Count MPV Immature Gran % (Auto) Neut % (Auto) Lymph % (Auto) [place] % (Auto) Eos % (Auto) Baso % (Auto) Lymph # (Auto) [place] # (Auto) Eos # (Auto) Baso # (Auto) Abs Immat Gran (auto) Absolute Neuts (auto) Absolute Nucleated RBC Nucleated RBC % (auto) PT INR Anion Gap 11 L Estim Creat Clear Calc 85.6 Estimated GFR > 60 Random Glucose 87 Lactic Acid Calcium 8.5 Magnesium 2.1 Total Bilirubin 1.0 AST 55 H ALT 34 Alkaline Phosphatase 135 H D C-Reactive Protein 5.70 H Total Protein 7.7 Albumin 2.6 L Assessment and Plan (1) Venous stasis ulcer: Qualifiers: Laterality: right Non-pressure ulcer stage: with fat layer exposed Varicose vein presence: without varicose veins Venous stasis ulcer site: other part of lower leg Qualified Code(s): I87.2 - Venous insufficiency (chronic) (peripheral); L97.812 - Non-pressure chronic ulcer of other part of right lower leg with fat layer exposed Status: Acute 65-year-old male with a past medical history of varicose veins, venous stasis ulcers, polysubstance abuse, opiate dependence on methadone presented to the hospital with a chief complaint of worsening right lower extremity venous stasis ulcers. Right lower extremity venous stasis ulcer/ cellulitis: Patient noted increased pain and discharge for the past 1 week. No black discoloration noted currently. No crepitus noted currently. Will obtain a CT of the right lower extremity for further evaluation; Continue IV vancomycin and Zosyn Follow-up cultures Id consult Will also consult Dr. Valencia ramsey the from vascular surgery with seen the patient prior opiate dependence: Patient reports he is on methadone. Will consult addiction Medicine for further input. DVT prophylaxis: Subcu heparin Code status: Full code Quality Stroke Does the patient have a stroke diagnosis?: No VTE Prior VTE?: No VTE Risk Level:: Medical - moderate - high VTE Device Contraindication: Procedure Contraindicated VTE Drug Contraindication: N/A - Med Ordered
[2021-02-09] MEDS: iohexoL 350 MG/ML 100 ML INFUS..BTL 85 ML IV (00:37)
[2021-02-09 00:52] LABS: COVID-19 Test Negative (Negative); IDNOW Serial# 9DD0AD1C
--- NOTE | 2021-02-09 06:19 | PC.NURSE ---
PATIENT ADMITTED TO [place] [id number] AT 0240 FROM ED WITH CHRONIC/ACUTE VENOUS STASIS ULCER AND CELLULITES TO RLE. PATIENT COOPERATIVE EXCEPT DECLINED THIS RN TO ASSESS HIS SKIN TO HIS FRANDY, BUTTOCKS, GROIN AREA. HE DECLINED ALSO TO REMOVE HIS LONG ROXI SHORTS THAT HE CAME WEARING. ALL OTHER SKIN CONDITIONS DOCUMENTED IN ADMISSION INTERVENTIONS. RLE IS RED, TENDER, EDEMATOUS, ODOROUS, DRY, SCALY, AND EXCORIATED. ED RN PLACED A NON ADHERENT DSG WITH A GAUZE WRAP THAT WAS C-D-I UPON ADMISSION. LLE SHOWS CHRONIC VENOUS STASIS, DISCOLORED,, DRY, SCALY. MULTIPLE TRACK TAI IN VARIOUS STAGES NOTED TO BILAT ARMS AND UPPER LEGS. ALL AREAS DRY, FLAT, AND WITHOUT OPEN SORES OR DRAINAGE. PATIENT DENIED PAIN, ANSWERED QUESTIONS, TOOK A SNACK, AND THEN SLEPT WELL WITH NO S/SX DISTRESS. CALL [facility] WITHIN REACH AND HFR ALARM EXPLAINED AND ACTIVATED. WILL CONTINUE TO MONITOR.
--- NOTE | 2021-02-09 08:29 | PHA.MEDREC ---
pt interviewed, may possibly be noncompliant on medications. States only taking lasix and methadone, call out to methadone clinic awaiting verification. Pharmacy Consult ? Medication Reconciliation Pharmacy has completed the medication reconciliation.
[2021-02-09] MEDS: Heparin Sodium,Porcine 5,000 UNIT/ML VIAL 5000 UNIT SUBCUT ×2 (08:32→15:52)
[2021-02-09] MEDS: 0.9 % Sodium Chloride Flush 3 ML SYRINGE IVFLUSH ×3 (08:32→23:44)
[2021-02-09 08:40] LABS: Basophils Absolute Auto 0.1 X10*3/uL (0.0-0.2); Basophils Percent Auto 0.5 % (0-2); Eosinophils Absolute Auto 0.4 X10*3/uL (0.0-0.4); Hematocrit 30.9 % (42-52); Imm Gran Abs Auto 0.06 X10*3/uL (0.00-0.03); Imm Gran Pct Auto 0.5 % (0.0-0.4); Lymphocytes Absolute Auto 1.1 X10*3/uL (1.2-4.9); Lymphocytes Percent Auto 8.3 % (20-40); MANUAL DIFF FLAG SCAN; Mean Corpuscular HGB Conc 32.4 g/dl (31.0-36.0); Mean Corpuscular Volume 80.5 fL (80-98); Mean Platelet Volume 9.4 fL (9.4-12.4); Monocytes Absolute Auto 1.6 X10*3/uL (0.1-1.2); Monocytes Percent Auto 12.3 % (2-11); Neutrophils Absolute Auto 9.9 X10*3/uL (2.0-8.3); Neutrophils Percent Auto 75.4 % (45-73); Platelet Count 187 X10*3/uL (160-400); Red Blood Count 3.84 X10*6/uL (4.60-5.80); Red Cell Distribution Width 16.8 % (11.0-16.0); SCAN SMEAR FLAG 1; White Blood Count 13.2 X10*3/uL (4.8-10.8)
--- NOTE | 2021-02-09 09:03 | MHC.CM.PN ---
PATIENT STATES THAT HE LIVE ALONE. HE USES A CANE FOR AMBULATION.PATIENT REPORTS THAT USUALLY HIS NIECE GUILLERMINA HELPS HIM WITH TRANSPORT AND SOME HOME CARE, BUT THEY HAVE HAD A RECENT ARGUMENT AND SHE HAS NOT BEEN AVAILABLE. WHEN ASKED IF CM CAN SPEAK WITH GUILLERMINA, HE AGREES, BUT IS UNABLE TO PROVIDE HER PHONE NUMBER. PATIENT STATES THAT HE DOES NOT HAVE THE MONEY TO PAY FOR MORE MINUTES ON HIS PHONE. HOSPITALIST SPOKE WITH PATIENT ABOUT STR, WHICH HE IS AGREEABLE TO REFERRAL PLACED TO [facility]. PATIENT IS AWARE THAT IF OFFERED A BED, HE WILL NEED TO COMPLETE A HCP.
[2021-02-09 09:06] LABS: SLIDE REVIEW VERIFIED
[2021-02-09 09:13] LABS: Anion Gap 9 (12-20); Blood Urea Nitrogen 19 mg/dL (9-16); Calcium 7.9 mg/dL (8.4-10.2); Carbon Dioxide 23 mmol/L (22-29); Chloride 106 mmol/L (96-108); Creatinine Clr Calc Pharmacy 104.1; Estimated Glomerular Filt Rate > 60; Glucose Random 93 mg/dL (60-115); Potassium 4.1 mmol/L (3.3-5.1); Sodium 134 mmol/L (135-145)
--- NOTE | 2021-02-09 10:10 | P.CONGS_ITS ---
History of Present Illness Consult details Consult date: 02/09/21 Reason for consult: wound care Narrative: 65-year-old gentleman known to me for nonhealing right lower extremity ulcer. He has had these longstanding right lower extremity ulcers. [facility] because he was unable to follow-up at their prescribed times. He had significant swelling and drainage of that right lower extremity along with redness that brought him into the emergency room. He was subsequently admitted. He has been treated with antibiotics. And he now presents to us for vascular evaluation. Of note he has a prior history polysubstance abuse and tobacco dependence. Review of Systems Constitutional: Constitutional: Reports as per HPI ENT: Reports system reviewed and no additional complaints, except as documented Cardiovascular: Cardiovascular: Denies chest pain, Denies chest pain at rest and Denies chest pain with activity Respiratory: Respiratory: Denies chest congestion and Denies cough Gastrointestinal: Gastrointestinal: Reports no additional gastrointestinal complaints Musculoskeletal: Musculoskeletal: Denies abnormal gait Integumentary/Breasts: Skin/Breast: Reports pruritus and Denies wounds Neurologic: Reports system reviewed and no additional complaints, except as documented and Denies abnormal gait Psychiatric: Psychiatric: Denies no additional psychiatric complaints PMFSH Past Medical History Medical History Anemia Chronic cutaneous venous stasis ulcer Cirrhosis Depression Hepatitis C Infected wound Opioid use disorder Polysubstance abuse Tobacco dependence Family History Family History Mother CAD (coronary artery disease) ESRD (end stage renal disease) Brother Liver failure Surgical History Surgical History H/O hernia repair Social History Social History Household Members: Friend(s) Housing: Apartment Housing Other:: rent room Do you presently have visiting nurse or other home services: No Alcohol intake: never Patient Tobacco Use Status: Current everyday Tobacco user Tobacco use type: Cigarette Cigarettes Per Day: 2 Smoked in Last 30 Days: Yes e-Cigarette/Vaping Use: Never Used Patient Interested in Nicotine Replacement: No Patient Given Instructions on How to Stop Smoking: No Second Hand Smoke Exposure: Yes Use of substances other than those prescribed or required for medical reasons: Yes Substance Use Type: Heroin Substance Use Frequency: Recent Binge Last Used Substance: Days (ago) Last Used Substance Other:: yesterdaY Currently Displaying Signs/Symptoms of Drug Intoxication Withdrawal: No Any prior treatment program specific to substance use: No (PATIENT STATED HAD NOT BEEN USING HEROIN, ON METHADONE, HOWEVER, CLINIC NOE) Have you been hit, kicked, punched, or otherwise hurt by someone within the past year? If so, by whom?: No Do you feel safe in your current relationship?: No Current Relationship Is there a partner from a previous relationship who is making you feel unsafe now?: No Are you made to feel afraid or neglected: No Advance Directives: No Do you have thoughts of harming others: None Do you have a plan to hurt others: No Plan Recently lost weight without trying: No Eating poorly because of decreased appetite: No Nutrition Risks: No Nutritional Risk Poor oral hygiene: Yes service: No Current occupational status: unemployed and disabled Meds Allergies Allergy/AdvReac Type Severity Reaction Status Date / Time trazodone [TRAZODONE] Allergy Intermediate RESTLESS Verified 09/17/20 11:21 LEGS Active Medications: Current Medications Generic Name Dose Route Start Last Admin Trade Name Freq PRN Reason Stop Dose Admin Heparin Sodium (Porcine) 5,000 unit 02/09/21 00:30 02/09/21 08:32 Heparin Sodium,Porcine 5,000 Unit/Ml Vial SUBCUT 5,000 unit Q8H DAVID Administration Hydroxyzine HCl 25 mg 02/09/21 00:22 Hydroxyzine Hcl 25 Mg Tablet PO Q6H PRN anxiety/restlessness Piperacillin Sod/Tazobactam 50 mls @ 100 mls/hr 02/09/21 00:15 02/09/21 06:43 Sod 3.375 gm/ Sodium Chloride IV Infused Q6H DAVID Infusion Vancomycin HCl 750 mg/ Sodium 265 mls @ 265 mls/hr 02/09/21 12:00 Chloride IV Q12H DAVID Melatonin 6 mg 02/09/21 00:17 Melatonin 3 Mg Tablet PO BEDTIME PRN Insomnia Oxycodone HCl 5 mg 02/09/21 00:17 Oxycodone Hcl Immed Release 5 Mg Tablet PO Q6H PRN Pain, Severe (Pain Scale 7-10) Pharmacy Consult 1 each 02/09/21 00:12 Consult Rx Vancomycin Dosing MISCELLANE DAILY PRN Consult order Senna 17.2 mg 02/09/21 00:17 Sennosides 8.6 Mg Tablet PO BEDTIME PRN Constipation Sodium Chloride 3 ml 02/09/21 08:00 02/09/21 08:32 0.9 % Sodium Chloride Flush 3 Ml Syringe IVFLUSH 3 ml QSHIFT DAVID Administration Home Medications Medication Instructions Recorded Confirmed Last Taken Type furosemide 20 mg PO DAILY 02/09/21 02/09/21 Unknown History methadone [Methadone Intensol] 60 mg PO DAILY 02/09/21 Unknown History Physical Exam Vital Signs: Vital Signs: Last Vital Signs Temp 97.7 F 02/09/21 08:00 Pulse 84 02/09/21 08:00 Resp 18 02/09/21 08:00 BP 144/69 H 02/09/21 08:00 Pulse Ox 94 02/09/21 08:00 Body Mass Index 25.0 Const: General: cooperative, healthy appearing and comfortable Orientation/consciousness: oriented to person, oriented to place and oriented to time Neck: Carotids: no bruits Chest: Chest palpation & inspection: normal inspection of the chest and normal palpation of entire chest wall Resp: Effort & Inspection: normal respiratory effort and able to speak in co mplete sentences Cardio: Rate: regular rate Heart sounds: S1 normal heart sound present and S2 normal heart sound present Peripheral pulses: Peripheral pulses 2+ throughout GI: Inspection: Yes normal to inspection Skin: Other: +2 edema, large rope-like varicosities greater than 3 mm General skin exam: dry skin Wounds: wounds noted ( Right pretibial surface multiple punctate wounds) Neuro: General: oriented to person, oriented to place and oriented to time Extrem: Right lower extremity: full ROM, normal capillary refill and edema Left lower extremity: full ROM, normal capillary refill and edema Psych: Mental Status: mental status grossly normal Results Labs Result diagrams: 02/09/21 08:32 02/09/21 08:32 Labs: Abnormal lab results 02/08/21 02/08/21 02/08/21 Range/Units 23:37 23:37 23:40 WBC (4.8-10.8) X10*3/uL RBC 3.98 L (4.60-5.80) X10*6/uL Hgb 10.3 L (14.0-18.0) g/dl Hct 32.4 L (42-52) % MCH 25.9 L (27.0-33.0) pg RDW 16.8 H (11.0-16.0) % Immature Gran % (Auto) (0.0-0.4) % Neut % (Auto) (45-73) % Lymph % (Auto) 12.8 L (20-40) % [place] % (Auto) 16.2 H (2-11) % Lymph # (Auto) (1.2-4.9) X10*3/uL [place] # (Auto) 1.5 H (0.1-1.2) X10*3/uL Abs Immat Gran (auto) 0.04 H (0.00-0.03) X10*3/uL Absolute Neuts (auto) (2.0-8.3) X10*3/uL PT 15.1 H (9.9-13.0) SEC INR 1.3 H (0.9-1.1) Sodium (135-145) mmol/L Anion Gap 11 L (12-20) BUN 23 H (9-16) mg/dL Calcium (8.4-10.2) mg/dL AST 55 H (5-37) U/L Alkaline Phosphatase 135 H D (39-117) U/L C-Reactive Protein 5.70 H (< or = 0.50) mg/dL Albumin 2.6 L (3.5-5.0) g/dL 02/09/21 02/09/21 Range/Units 08:32 08:32 WBC 13.2 H (4.8-10.8) X10*3/uL RBC 3.84 L (4.60-5.80) X10*6/uL Hgb 10.0 L (14.0-18.0) g/dl Hct 30.9 L (42-52) % MCH 26.0 L (27.0-33.0) pg RDW 16.8 H (11.0-16.0) % Immature Gran % (Auto) 0.5 H (0.0-0.4) % Neut % (Auto) 75.4 H (45-73) % Lymph % (Auto) 8.3 L (20-40) % [place] % (Auto) 12.3 H (2-11) % Lymph # (Auto) 1.1 L (1.2-4.9) X10*3/uL [place] # (Auto) 1.6 H (0.1-1.2) X10*3/uL Abs Immat Gran (auto) 0.06 H (0.00-0.03) X10*3/uL Absolute Neuts (auto) 9.9 H (2.0-8.3) X10*3/uL PT (9.9-13.0) SEC INR (0.9-1.1) Sodium 134 L (135-145) mmol/L Anion Gap 9 L (12-20) BUN 19 H (9-16) mg/dL Calcium 7.9 L D (8.4-10.2) mg/dL AST (5-37) U/L Alkaline Phosphatase (39-117) U/L C-Reactive Protein (< or = 0.50) mg/dL Albumin (3.5-5.0) g/dL Short CBC 02/08/21 02/09/21 Range/Units 23:37 08:32 WBC 9.0 13.2 H (4.8-10.8) X10*3/uL Hgb 10.3 L 10.0 L (14.0-18.0) g/dl Hct 32.4 L 30.9 L (42-52) % Plt Count 206 187 (160-400) X10*3/uL BMP 02/08/21 02/09/21 23:40 08:32 Sodium 136 134 L Potassium 4.1 4.1 Chloride 104 106 Carbon Dioxide 25 23 BUN 23 H 19 H Creatinine 0.90 0.74 Calcium 8.5 7.9 L D Liver Function 02/08/21 Range/Units 23:40 Total Bilirubin 1.0 (0.0-1.0) mg/dL AST 55 H (5-37) U/L ALT 34 (0-40) U/L Alkaline Phosphatase 135 H D (39-117) U/L Albumin 2.6 L (3.5-5.0) g/dL All other labs normal. Assessment and Plan (1) Varicose veins of right lower extremity with inflammation: Status: Acute In short rim own has venous insufficiency with nonhealing ulcers. He has failed to show up as an outpatient. Continue antibiotics. I did have an opportunity to review all his imaging including CT scan written report and images in addition to ultrasound of venous insufficiency from August of this year as well. This did demonstrate venous reflux which would require treatment. This can be scheduled as an outpatient. He can see me in approximately 2 weeks upon discharge. Wound care: Vaseline gauze, Kerlix wrap, and 4 in Abram wrap from foot to below-knee. thank you for allowing us to participate in his care. Procedures Date of Service Date of Service: 02/09/21
--- NOTE | 2021-02-09 11:07 | MHC.CLN ---
NUTRITION PATIENT CONFIRMED THAT HE HAS NO TEETH AND ASKED FOR SOFT FOODS. DIET CHANGED TO NDD3 CONSISTENCY. ALBUMIN=2.6, ENSURE SUPPLEMENT ADDED 240 CC TWO TIMES DAILY (700 KCAL/40 G PROTEIN) TO IMPROVE NUTRITIONAL INTAKE. WOUNDS PER MD ARE NON PRESSURE VENOUS STASIS ULCERS.
[2021-02-09] MEDS: vancomycin HCL 750 MG in 0.9 % Sodium Chloride 250 ML 265 MG IV (13:03)
--- NOTE | 2021-02-09 13:15 | W.PM.IDCN ---
History of Present Illness Data of Consult Service Date: 02/09/21 Requesting physician: Miah Montenegro Primary Care Provider: Brandee Grey MD [facility] Reason for consult: right lower extremity redness He presents with foul smelling right leg He has had venous stasis changes chronically and has seen Wound clinic for chronic wound dressings He has stopped going to Wound Clinic reportedly due to IVDA relapse concern He has malodorous are lateral leg and reportedly has not been changing dressings. CT shows myositis He has been seen by Vascular Review of Systems Review of Systems: Yes all other systems are reviewed and are negative [facility] Past Medical History Medical History Anemia Chronic cutaneous venous stasis ulcer Cirrhosis Depression Hepatitis C Infected wound Opioid use disorder Polysubstance abuse Tobacco dependence Family History Family History Mother CAD (coronary artery disease) ESRD (end stage renal disease) Brother Liver failure Family history: reviewed and not pertinent Surgical History Surgical History H/O hernia repair Social History Social History Household Members: Friend(s) Housing: Apartment Housing Other:: rent room Do you presently have visiting nurse or other home services: No Alcohol intake: never Patient Tobacco Use Status: Current everyday Tobacco user Tobacco use type: Cigarette Cigarettes Per Day: 2 Smoked in Last 30 Days: Yes e-Cigarette/Vaping Use: Never Used Patient Interested in Nicotine Replacement: No Patient Given Instructions on How to Stop Smoking: No Second Hand Smoke Exposure: Yes Use of substances other than those prescribed or required for medical reasons: Yes Substance Use Type: Heroin Substance Use Frequency: Recent Binge Last Used Substance: Days (ago) Last Used Substance Other:: yesterdaY Currently Displaying Signs/Symptoms of Drug Intoxication Withdrawal: No Any prior treatment program specific to substance use: No (PATIENT STATED HAD NOT BEEN USING HEROIN, ON METHADONE, HOWEVER, CLINIC NOE) Have you been hit, kicked, punched, or otherwise hurt by someone within the past year? If so, by whom?: No Do you feel safe in your current relationship?: No Current Relationship Is there a partner from a previous relationship who is making you feel unsafe now?: No Are you made to feel afraid or neglected: No Advance Directives: No Do you have thoughts of harming others: None Do you have a plan to hurt others: No Plan Recently lost weight without trying: No Eating poorly because of decreased appetite: No Nutrition Risks: No Nutritional Risk Poor oral hygiene: Yes service: No Current occupational status: unemployed and disabled Meds Allergies Allergy/AdvReac Type Severity Reaction Status Date / Time trazodone [TRAZODONE] Allergy Intermediate RESTLESS Verified 09/17/20 11:21 LEGS Active Medications: Current Medications Generic Name Dose Route Start Last Admin Trade Name Freq PRN Reason Stop Dose Admin Heparin Sodium (Porcine) 5,000 unit 02/09/21 00:30 02/09/21 08:32 Heparin Sodium,Porcine 5,000 Unit/Ml Vial SUBCUT 5,000 unit Q8H DAVID Administration Hydroxyzine HCl 25 mg 02/09/21 00:22 Hydroxyzine Hcl 25 Mg Tablet PO Q6H PRN anxiety/restlessness Piperacillin Sod/Tazobactam 50 mls @ 100 mls/hr 02/09/21 00:15 02/09/21 13:02 Sod 3.375 gm/ Sodium Chloride IV Infused Q6H DAVID Infusion Vancomycin HCl 750 mg/ Sodium 265 mls @ 265 mls/hr 02/09/21 12:00 02/09/21 13:03 Chloride IV 265 mls/hr Q12H DAVID Administration Melatonin 6 mg 02/09/21 00:17 Melatonin 3 Mg Tablet PO BEDTIME PRN Insomnia Oxycodone HCl 5 mg 02/09/21 00:17 Oxycodone Hcl Immed Release 5 Mg Tablet PO Q6H PRN Pain, Severe (Pain Scale 7-10) Pharmacy Consult 1 each 02/09/21 00:12 Consult Rx Vancomycin Dosing MISCELLANE DAILY PRN Consult order Senna 17.2 mg 02/09/21 00:17 Sennosides 8.6 Mg Tablet PO BEDTIME PRN Constipation Sodium Chloride 3 ml 02/09/21 08:00 02/09/21 08:32 0.9 % Sodium Chloride Flush 3 Ml Syringe IVFLUSH 3 ml QSHIFT DAVID Administration Home Medications Medication Instructions Recorded Confirmed Last Taken Type furosemide 20 mg PO DAILY 02/09/21 02/09/21 Unknown History methadone [Methadone Intensol] 60 mg PO DAILY 02/09/21 02/09/21 02/05/21 History Physical Exam Vital Signs: Vital Signs: Last Vital Signs Temp 98.1 F 02/09/21 11:28 Pulse 73 02/09/21 11:28 Resp 18 02/09/21 11:28 BP 111/55 L 02/09/21 11:28 Pulse Ox 97 02/09/21 11:28 Body Mass Index 25.0 Const: General: cooperative Orientation/consciousness: patient oriented x3 HENMT: Head: Yes normal to inspection Mouth: Normal oral and palatal mucosa present Resp: Effort & Inspection: normal respiratory effort Cardio: Rate: regular rate Rhythm: regular rhythm GI: Palpation (GI): Soft to palpation and nontender Skin: General skin exam: no rashes or lesions noted Neuro: General: patient oriented x3 Extrem: Other: wrapped with nelson wrap scaly areas reddened on leg Results Labs CBC & Chem 7: 02/09/21 08:32 02/09/21 08:32 Labs: Short CBC 02/08/21 02/09/21 Range/Units 23:37 08:32 WBC 9.0 13.2 H (4.8-10.8) X10*3/uL Hgb 10.3 L 10.0 L (14.0-18.0) g/dl Hct 32.4 L 30.9 L (42-52) % Plt Count 206 187 (160-400) X10*3/uL BMP 02/08/21 02/09/21 23:40 08:32 Sodium 136 134 L Potassium 4.1 4.1 Chloride 104 106 Carbon Dioxide 25 23 BUN 23 H 19 H Creatinine 0.90 0.74 Calcium 8.5 7.9 L D Liver Function 02/08/21 Range/Units 23:40 Total Bilirubin 1.0 (0.0-1.0) mg/dL AST 55 H (5-37) U/L ALT 34 (0-40) U/L Alkaline Phosphatase 135 H D (39-117) U/L Albumin 2.6 L (3.5-5.0) g/dL Assessment and Plan (1) Gangrene: Status: Acute There is myositis Deep infection likely muscle and skin,gram negative and gram positive concern No evidence clinically of necrotizing fasciitis at this time Suggest Would continue Vancomycin and Zosyn for now,until improved and then po Augmentin and Doxycycline for 10 days Vascular evaluation continuing (2) Cellulitis: Status: Acute (3) Varicose veins of right lower extremity with inflammation: Status: Acute
--- NOTE | 2021-02-09 13:21 | MHC.CM.NN ---
[facility] HAS NO BEDS. [facility] IS FOLLOWING. WILL NEED PASSR, MDS, AND LENGTH OF TIME ON IV ABX IF ANY.
--- NOTE | 2021-02-09 16:11 | HO.ADDICT_ITS ---
History of Present Illness Date of Service: 02/09/2021 Chief Complaint: Acute on chronic venous stasis ulcers/cellulitis Reason for Consult: Opioid use disorder Requesting physician: Miah Montenegro Discussed with referring provider: No Sources of Information: patient interviewed and chart reviewed HPI Narrative: Patient is a 65-year-old man with opioid use disorder, currently medically admitted with cellulitis of his lower leg. Consult requested as patient reports he continues to use heroin and cocaine -- of note patient also actively engaged with [facility]. Patient seen in room 459, asleep upon arrival but easily awakened and engaged in interview. Patient reports that he has been using substances since he was about 15 years old. Reports that his longest periods than recovery have been while he was incarcerated, last incarceration was in 2013. he also reports that he was in treatment through the [facility] and had a period of 9 months recovery during that time. He denies any history of overdose. Patient reports that current living environment is not conducive to recovery, as every person in that apartment is also actively using. He reports that he is trying to move in with his niece or his sisters in [place]. Medical Evaluation Reviewed: Yes Review of Systems Review of Systems Denies any withdrawal symptoms. Pain is being managed well. Comments: Numerous healed skin lesions up and down both forearms which patient reports is from excessive picking secondary to cocaine use. Diagnostics Vital Signs (24Hr): Vital Signs - 24 hr 02/08/21 22:09 02/08/21 23:45 02/09/21 00:45 Temperature 99.0 F 98.4 F Pulse Rate 97 80 76 Respiratory Rate 16 20 14 Blood Pressure 133/69 137/73 134/71 Pulse Oximetry 98 99 97 02/09/21 01:46 02/09/21 03:41 02/09/21 08:00 Temperature 97.6 F 97.7 F Pulse Rate 71 71 84 Respiratory Rate 16 16 18 Blood Pressure 121/61 167/80 H 144/69 H Pulse Oximetry 96 98 94 02/09/21 11:28 02/09/21 15:46 Temperature 98.1 F 98.4 F Pulse Rate 73 68 Respiratory Rate 18 20 Blood Pressure 111/55 L 128/60 Pulse Oximetry 97 96 Body Mass Index 25.0 Labs Results: 02/09/21 08:32 02/09/21 08:32 Labs: Laboratory Results - last 48 hr 02/08/21 02/08/21 02/08/21 23:37 23:37 23:37 WBC 9.0 RBC 3.98 L Hgb 10.3 L Hct 32.4 L MCV 81.4 MCH 25.9 L MCHC 31.8 RDW 16.8 H Plt Count 206 MPV 9.4 Immature Gran % (Auto) 0.4 Neut % (Auto) 66.1 Lymph % (Auto) 12.8 L [place] % (Auto) 16.2 H Eos % (Auto) 3.9 Baso % (Auto) 0.6 Lymph # (Auto) 1.2 [place] # (Auto) 1.5 H Eos # (Auto) 0.4 Baso # (Auto) 0.1 Abs Immat Gran (auto) 0.04 H Absolute Neuts (auto) 6.0 Absolute Nucleated RBC 0.000 Nucleated RBC % (auto) 0.0 Smear Tech's Comments PT 15.1 H INR 1.3 H Sodium Potassium Chloride Carbon Dioxide Anion Gap BUN Creatinine Estim Creat Clear Calc Estimated GFR Random Glucose Lactic Acid 1.1 Calcium Magnesium Total Bilirubin AST ALT Alkaline Phosphatase C-Reactive Protein Total Protein Albumin COVID-19 ([facility]) COVID-[place] [facility] Com 02/08/21 02/08/21 02/09/21 23:38 23:40 00:33 WBC RBC Hgb Hct MCV MCH MCHC RDW Plt Count MPV Immature Gran % (Auto) Neut % (Auto) Lymph % (Auto) [place] % (Auto) Eos % (Auto) Baso % (Auto) Lymph # (Auto) [place] # (Auto) Eos # (Auto) Baso # (Auto) Abs Immat Gran (auto) Absolute Neuts (auto) Absolute Nucleated RBC Nucleated RBC % (auto) Smear Tech's Comments PT INR Sodium 136 Potassium 4.1 Chloride 104 Carbon Dioxide 25 Anion Gap 11 L BUN 23 H Creatinine 0.90 Estim Creat Clear Calc 85.6 Estimated GFR > 60 Random Glucose 87 Lactic Acid Calcium 8.5 Magnesium 2.1 Total Bilirubin 1.0 AST 55 H ALT 34 Alkaline Phosphatase 135 H D C-Reactive Protein 5.70 H Total Protein 7.7 Albumin 2.6 L COVID-19 ([facility]ACQUE) Negative COVID-19 Clin Com See Note 07/06/21 07/06/21 08:32 08:32 WBC 13.2 H RBC 3.84 L Hgb 10.0 L Hct 30.9 L MCV 80.5 MCH 26.0 L MCHC 32.4 RDW 16.8 H Plt Count 187 MPV 9.4 Immature Gran % (Auto) 0.5 H Neut % (Auto) 75.4 H Lymph % (Auto) 8.3 L [place] % (Auto) 12.3 H Eos % (Auto) 3.0 Baso % (Auto) 0.5 Lymph # (Auto) 1.1 L [place] # (Auto) 1.6 H Eos # (Auto) 0.4 Baso # (Auto) 0.1 Abs Immat Gran (auto) 0.06 H Absolute Neuts (auto) 9.9 H Absolute Nucleated RBC 0.000 Nucleated RBC % (auto) 0.0 Smear Tech's Comments VERIFIED PT INR Sodium 134 L Potassium 4.1 Chloride 106 Carbon Dioxide 23 Anion Gap 9 L BUN 19 H Creatinine 0.74 Estim Creat Clear Calc 104.1 Estimated GFR > 60 Random Glucose 93 Lactic Acid Calcium 7.9 L D Magnesium Total Bilirubin AST ALT Alkaline Phosphatase C-Reactive Protein Total Protein Albumin COVID-19 ([facility]ACQUE) COVID-19 Clin Com Imaging Radiology Impressions: ITS Impressions Lower Extremity CT 02/09/21 00:27 IMPRESSION: Prominent soft tissue thickening with edema throughout the subcutaneous tissues as well as in the deep compartment along the musculature. No drainable fluid collection seen. Suspect myositis involving the tibialis anterior muscle. No osseous erosion. There is periosteal reaction of the tibia and fibula loosely. This can be seen with chronic venous insufficiency. Chronic infection is also possible with this appearance. Mental Status Exam Mental Status Exam Patient Appearance: Appropriate Patient Orientation: Person, Place, Time and Situation Level of Consciousness: Awake, Appropriate and Alert Patient Behavior: Appropriate Mood Description: Appropriate Affect Description: Appropriate Thought Process: Goal Oriented Thought Content: positive for Goal Oriented Judgement: Fair Medications Medications Current Medications Generic Name Dose Route Start Last Admin Trade Name Freq PRN Reason Stop Dose Admin Furosemide 20 mg 02/10/21 09:00 Furosemide 20 Mg Tablet PO DAILY [facility] Protocol Heparin Sodium (Porcine) 5,000 unit 02/09/21 00:30 02/09/21 15:52 Heparin Sodium,Porcine 5,000 Unit/Ml Vial SUBCUT 5,000 unit Q8H DAVID Administration Hydroxyzine HCl 25 mg 02/09/21 00:22 Hydroxyzine Hcl 25 Mg Tablet PO Q6H PRN anxiety/restlessness Piperacillin Sod/Tazobactam 50 mls @ 100 mls/hr 02/09/21 00:15 02/09/21 13:02 Sod 3.375 gm/ Sodium Chloride IV Infused Q6H DAVID Infusion Vancomycin HCl 750 mg/ Sodium 265 mls @ 265 mls/hr 02/09/21 12:00 02/09/21 14:13 Chloride IV Infused Q12H DAVID Infusion Melatonin 6 mg 02/09/21 00:17 Melatonin 3 Mg Tablet PO BEDTIME PRN Insomnia Methadone HCl 60 mg 02/09/21 13:35 02/09/21 14:12 Methadone Hcl 1 Mg/0.1 Ml Oral.Conc PO 60 mg DAILY DAVID Administration Oxycodone HCl 5 mg 02/09/21 00:17 Oxycodone Hcl Immed Release 5 Mg Tablet PO Q6H PRN Pain, Severe (Pain Scale 7-10) Pharmacy Consult 1 each 02/09/21 00:12 Consult Rx Vancomycin Dosing MISCELLANE DAILY PRN Consult order Senna 17.2 mg 02/09/21 00:17 Sennosides 8.6 Mg Tablet PO BEDTIME PRN Constipation Sodium Chloride 3 ml 02/09/21 08:00 02/09/21 15:53 0.9 % Sodium Chloride Flush 3 Ml Syringe IVFLUSH 3 ml QSHIFT DAVID Administration Allergies Allergies Allergy/AdvReac Type Severity Reaction Status Date / Time trazodone [TRAZODONE] Allergy Intermediate RESTLESS Verified 09/17/20 11:21 LEGS Assessment & Plan Assessment & Plan (1) Opioid use disorder: Status: Acute Code(s): F11.99 - Opioid use, unspecified with unspecified opioid-induced disorder Recommendations: * Methadone dose already verified and ordered * lengthy harm reduction discussion with patient * recovery engineer to follow up this evening and offer support Greater than 50% of the session was spent on counseling and/or coordination of care PMFSH Past Medical History Medical History Anemia Chronic cutaneous venous stasis ulcer Cirrhosis Depression Hepatitis C Infected wound Opioid use disorder Polysubstance abuse Tobacco dependence Family History Family History Mother CAD (coronary artery disease) ESRD (end stage renal disease) Brother Liver failure Family history: reviewed and not pertinent Surgical History Surgical History H/O hernia repair Social History Social History Household Members: Friend(s) Housing: Apartment Housing Other:: rent room Do you presently have visiting nurse or other home services: No Alcohol intake: never Patient Tobacco Use Status: Current everyday Tobacco user Tobacco use type: Cigarette Cigarettes Per Day: 2 Smoked in Last 30 Days: Yes e-Cigarette/Vaping Use: Never Used Patient Interested in Nicotine Replacement: No Patient Given Instructions on How to Stop Smoking: No Second Hand Smoke Exposure: Yes Use of substances other than those prescribed or required for medical reasons: Yes Substance Use Type: Heroin Substance Use Frequency: Recent Binge Last Used Substance: Days (ago) Last Used Substance Other:: yesterdaY Currently Displaying Signs/Symptoms of Drug Intoxication Withdrawal: No Any prior treatment program specific to substance use: No (PATIENT STATED HAD NOT BEEN USING HEROIN, ON METHADONE, HOWEVER, CLINIC NOE) Have you been hit, kicked, punched, or otherwise hurt by someone within the past year? If so, by whom?: No Do you feel safe in your current relationship?: No Current Relationship Is there a partner from a previous relationship who is making you feel unsafe now?: No Are you made to feel afraid or neglected: No Advance Directives: No Do you have thoughts of harming others: None Do you have a plan to hurt others: No Plan Recently lost weight without trying: No Eating poorly because of decreased appetite: No Nutrition Risks: No Nutritional Risk Poor oral hygiene: Yes service: No Current occupational status: unemployed and disabled
--- NOTE | 2021-02-09 18:29 | MHC.RECOVSUP ---
? Reason for consult Recovery Support o Current location: [address] o Identified substance use concern: Heroin <del>-</del> <del>Overdose</del> <del>-</del> <del>Withdrawal</del> <del>-</del> <del>Seeking</del> <del>ATS</del> <del>(detox)</del> - Support ? Intervention: <del>o</del> <del>ATS</del> <del>bed</del> <del>search</del> <del>started/completed/in</del> <del>process</del> <del>o</del> <del>MAT</del> <del>started</del> <del>or</del> <del>to</del> <del>be</del> <del>started</del> o Community resources provided o Harm reduction discussion ? Plan: <del>o</del> <del>Referral</del> <del>to</del> <del>[facility]del> <del>o</del> <del>Bed</del> <del>search</del> <del>in</del> <del>progress</del> <del>to</del> <del>o</del> <del>Follow</del> <del>up</del> <del>tomorrow</del> <del>o</del> <del>Patient</del> <del>awaiting</del> <del>crisis</del> <del>evaluation</del> o Patient to follow up with [facility] after discharge ? Additional information: Met with patient and we talk about recovery and his goals for recovery.. Patient stated that he was going out of town and get out of [place]..
[2021-02-10] VITALS (7 sets, daily range): BP systolic 108–130; BP diastolic 53–68; PULSE 63–107; RESP 16–18; TEMP 36.4–37.3; O2SAT 96–97
[2021-02-10] MEDS: Heparin Sodium,Porcine 5,000 UNIT/ML VIAL 5000 UNIT SUBCUT ×3 (00:34→16:42)
[2021-02-10] MEDS: vancomycin HCL 750 MG in 0.9 % Sodium Chloride 250 ML 265 MG IV ×2 (00:34→11:54)
[2021-02-10] MEDS: Piperacillin Sodium/Tazobactam 3.375 GM in 0.9 % Sodium Chloride 50 ML IV ×3 (06:07→17:59)
[2021-02-10] MEDS: Furosemide 20 MG TABLET PO (07:48)
[2021-02-10] MEDS: 0.9 % Sodium Chloride Flush 3 ML SYRINGE IVFLUSH ×2 (07:48→16:42)
[2021-02-10] MEDS: oxyCODONE HCl Immed Release 5 MG TABLET PO (09:58)
--- NOTE | 2021-02-10 10:57 | HO.PM.IMPN ---
Subjective Subjective Date of Service: 02/10/21 Interval History: leg pain Cardiovascular Cardiovascular: Reports no additional cardiovascular complaints Gastrointestinal Gastrointestinal: Reports no additional gastrointestinal complaints Physical Exam Vital Signs: Vital Signs: Last Vital Signs Temp 97.7 F 02/10/21 07:34 Pulse 107 H 02/10/21 07:34 Resp 18 02/10/21 07:34 BP 127/68 02/10/21 07:34 Pulse Ox 97 02/10/21 07:34 Body Mass Index 25.0 General: AO X 3, no acute distress Resp: CTA bilateral CVS: S1,S2,RRR GI: soft, non tender, non distended Neuro: motor grossly intact Psych: appropriate affect +2 edema, large rope-like varicosities greater than 3 mm General skin exam: dry skin Wounds: wounds noted ( Right pretibial surface multiple punctate wounds) Objective Data Current Medications Generic Name Dose Route Start Last Admin Trade Name Freq PRN Reason Stop Dose Admin Furosemide 20 mg 02/10/21 09:00 02/10/21 07:48 Furosemide 20 Mg Tablet PO 20 mg DAILY DAVID Administration Protocol Heparin Sodium (Porcine) 5,000 unit 02/09/21 00:30 02/10/21 07:48 Heparin Sodium,Porcine 5,000 Unit/Ml Vial SUBCUT 5,000 unit Q8H DAVID Administration Hydroxyzine HCl 25 mg 02/09/21 00:22 Hydroxyzine Hcl 25 Mg Tablet PO Q6H PRN anxiety/restlessness Piperacillin Sod/Tazobactam 50 mls @ 100 mls/hr 02/09/21 00:15 02/10/21 06:47 Sod 3.375 gm/ Sodium Chloride IV Infused Q6H DAVID Infusion Vancomycin HCl 750 mg/ Sodium 265 mls @ 265 mls/hr 02/09/21 12:00 02/10/21 01:40 Chloride IV Infused Q12H DAVID Infusion Melatonin 6 mg 02/09/21 00:17 Melatonin 3 Mg Tablet PO BEDTIME PRN Insomnia Methadone HCl 60 mg 02/09/21 13:35 02/10/21 07:48 Methadone Hcl 1 Mg/0.1 Ml Oral.Conc PO 60 mg DAILY DAVID Administration Oxycodone HCl 5 mg 02/09/21 00:17 02/10/21 09:58 Oxycodone Hcl Immed Release 5 Mg Tablet PO 5 mg Q6H PRN Administration Pain, Severe (Pain Scale 7-10) Pharmacy Consult 1 each 02/09/21 00:12 Consult Rx Vancomycin Dosing MISCELLANE DAILY PRN Consult order Senna 17.2 mg 02/09/21 00:17 Sennosides 8.6 Mg Tablet PO BEDTIME PRN Constipation Sodium Chloride 3 ml 02/09/21 08:00 02/10/21 07:48 0.9 % Sodium Chloride Flush 3 Ml Syringe IVFLUSH 3 ml QSHIFT DAVID Administration Labs CBC & Chem 7: 02/09/21 08:32 02/09/21 08:32 Microbiology Microbiology Results: Microbiology 02/08/21 23:37 Blood Culture - Preliminary Blood - Venous No growth after 24 hours. 02/08/21 23:37 Blood Culture - Preliminary Blood - Venous No growth after 24 hours. Quality Stroke Does the patient have a stroke diagnosis?: No VTE Prior VTE?: No VTE Risk Level:: Medical - moderate - high VTE Device Contraindication: Procedure Contraindicated VTE Drug Contraindication: N/A - Med Ordered Assessment and Plan (1) Chronic cutaneous venous stasis ulcer: Status: Inactive (2) Infected wound: (3) Opioid use disorder: (4) Cellulitis: Status: Resolved Assessment and Plan: 64-year-old male with past medical history of IV drug use as well as cocaine use presents to the hospital with complaints of 1 week history of pain as well as inflammation of his right lower extremity Right lower extremity cellulitis chronic venous stasis ulcer, worsening Negative cultures continue broad-spectrum antibiotics including vancomycin and Zosyn Vascular surgeon put appreciated, follow-up as outpatient and local wound care with wound clinic Vaseline gauze, Kerlix wrap, and Abram wrap from foot to below-knee polysubstance abuse disorder heroin as well as cocaine Continue on clonidine for possible withdrawal as well as hydroxyzine monitor for withdrawal symptoms hep C and liver cirrhosis partially treated, viral load negative in 2019 no evidence of decompensation continue to monitor DVT prophylaxis Lovenox dispo- IV abx for now, eventually change to po augmentin and doxy for 10 days and transfer to [facility]
[2021-02-10 11:19] LABS: Vancomycin Trough 10.3 mcg/mL (10.0-20.0)
--- NOTE | 2021-02-10 11:44 | MHC.CM.PN ---
EMR REVIEWED. PER HOSPITALIST PT NOT READY FOR D/C TODAY, CM MET W/PT WHO REPORTS HE IS FINE W/ [facility] [facility] [facility] [place] [facility], PT REPORTS HE HAS A [facility] [employer]TER SRINI GALEANO [phone], PT COMPLETED HCP NAMING HIS NIECE CHAVA COLVIN [phone], NO ALTERNATE CHOSEN AT THIS TIME. D/C PLAN: [place] [facility], ACTION FOR BLS [facility]
[2021-02-10 13:05] LABS: HIV AB/AG Nonreactive (Nonreactive); HIV Num 1 0.06 S/CO (0.00-0.99)
--- NOTE | 2021-02-10 15:49 | PC.NURSE ---
Skin/Wound assessment completed today. Patient has several venous ulcers surrounding right lower leg and on dorsal foot with pseudomonas infection and strong odor. Suggested to Dr. [place] we use Acetic acid to clear up infection then Ag Alginate after pseudomonas cleared. He agreed with the plan and orders were placed. This will start on February 11 at 9:00 am. Patient is a known drug addict and denies shooting up in leg, states he was not able to make his appointments at the wound clinic and leg started to get worse.
[2021-02-11] VITALS (7 sets, daily range): BP systolic 119–139; BP diastolic 60–69; PULSE 59–68; RESP 14–19; TEMP 36.1–36.7; O2SAT 95–98
[2021-02-11] MEDS: Heparin Sodium,Porcine 5,000 UNIT/ML VIAL 5000 UNIT SUBCUT ×3 (00:08→17:20)
[2021-02-11] MEDS: Piperacillin Sodium/Tazobactam 3.375 GM in 0.9 % Sodium Chloride 50 ML IV ×4 (00:08→17:19)
[2021-02-11] MEDS: 0.9 % Sodium Chloride Flush 3 ML SYRINGE IVFLUSH ×3 (00:09→17:20)
[2021-02-11] MEDS: vancomycin HCL 750 MG in 0.9 % Sodium Chloride 250 ML 265 MG IV (00:46)
[2021-02-11 06:01] LABS: Hematocrit 33.7 % (42-52); Hemoglobin 10.7 g/dl (14.0-18.0); Mean Corpuscular HGB Conc 31.8 g/dl (31.0-36.0); Mean Corpuscular Hemoglobin 25.8 pg (27.0-33.0); Mean Corpuscular Volume 81.2 fL (80-98); Mean Platelet Volume 9.3 fL (9.4-12.4); Platelet Count 191 X10*3/uL (160-400); Red Blood Count 4.15 X10*6/uL (4.60-5.80); Red Cell Distribution Width 16.8 % (11.0-16.0); White Blood Count 9.4 X10*3/uL (4.8-10.8)
[2021-02-11 06:37] LABS: Anion Gap 9 (12-20); Blood Urea Nitrogen 19 mg/dL (9-16); Carbon Dioxide 23 mmol/L (22-29); Chloride 107 mmol/L (96-108); Creatinine Clr Calc Pharmacy 89.5; Estimated Glomerular Filt Rate > 60; Glucose Fasting 80 mg/dL (60-99); Potassium 4.5 mmol/L (3.3-5.1); Sodium 134 mmol/L (135-145)
[2021-02-11] MEDS: Furosemide 20 MG TABLET PO (08:46)
--- NOTE | 2021-02-11 09:48 | HO.PM.IMPN ---
Subjective Subjective Date of Service: 02/11/21 Interval History: improving Cardiovascular Cardiovascular: Reports no additional cardiovascular complaints Respiratory Respiratory: Reports no additional respiratory complaints Physical Exam Vital Signs: Vital Signs: Last Vital Signs Temp 98.1 F 02/11/21 07:57 Pulse 59 02/11/21 07:57 Resp 17 02/11/21 07:57 BP 123/69 02/11/21 07:57 Pulse Ox 96 02/11/21 07:57 Body Mass Index 25.0 General: AO X 3, no acute distress Resp: CTA bilateral CVS: S1,S2,RRR GI: soft, non tender, non distended Neuro: motor grossly intact Psych: appropriate affect +2 edema, large rope-like varicosities greater than 3 mm General skin exam: dry skin Wounds: wounds noted ( Right pretibial surface multiple punctate wounds) Objective Data Current Medications Generic Name Dose Route Start Last Admin Trade Name Freq PRN Reason Stop Dose Admin Acetic Acid 1 appl 02/11/21 09:00 Acetic Acid 0.25 % Irrigation 1,000 Ml Irrig.Soln TOPICAL DAILY DAVID Protocol Furosemide 20 mg 02/10/21 09:00 02/11/21 08:46 Furosemide 20 Mg Tablet PO 20 mg DAILY DAVID Administration Protocol Heparin Sodium (Porcine) 5,000 unit 02/09/21 00:30 02/11/21 08:46 Heparin Sodium,Porcine 5,000 Unit/Ml Vial SUBCUT 5,000 unit Q8H DAVID Administration Hydroxyzine HCl 25 mg 02/09/21 00:22 Hydroxyzine Hcl 25 Mg Tablet PO Q6H PRN anxiety/restlessness Piperacillin Sod/Tazobactam 50 mls @ 100 mls/hr 02/09/21 00:15 02/11/21 06:44 Sod 3.375 gm/ Sodium Chloride IV Infused Q6H DAVID Infusion Vancomycin HCl 750 mg/ Sodium 265 mls @ 265 mls/hr 02/09/21 12:00 02/11/21 02:05 Chloride IV Infused Q12H DAVID Infusion Melatonin 6 mg 02/09/21 00:17 Melatonin 3 Mg Tablet PO BEDTIME PRN Insomnia Methadone HCl 60 mg 02/09/21 13:35 02/11/21 08:46 Methadone Hcl 1 Mg/0.1 Ml Oral.Conc PO 60 mg DAILY DAVID Administration Oxycodone HCl 5 mg 02/09/21 00:17 02/10/21 09:58 Oxycodone Hcl Immed Release 5 Mg Tablet PO 5 mg Q6H PRN Administration Pain, Severe (Pain Scale 7-10) Pharmacy Consult 1 each 02/09/21 00:12 Consult Rx Vancomycin Dosing MISCELLANE DAILY PRN Consult order Senna 17.2 mg 02/09/21 00:17 Sennosides 8.6 Mg Tablet PO BEDTIME PRN Constipation Sodium Chloride 3 ml 02/09/21 08:00 02/11/21 08:46 0.9 % Sodium Chloride Flush 3 Ml Syringe IVFLUSH 3 ml QSHIFT DAVID Administration Labs CBC & Chem 7: 02/11/21 05:41 02/11/21 05:41 Labs: Laboratory Results - last 24 hr 02/09/21 02/10/21 02/11/21 14:11 10:44 05:41 WBC 9.4 RBC 4.15 L Hgb 10.7 L Hct 33.7 L MCV 81.2 MCH 25.8 L MCHC 31.8 RDW 16.8 H Plt Count 191 MPV 9.3 L Absolute Nucleated RBC 0.000 Nucleated RBC % (auto) 0.0 Sodium Potassium Chloride Carbon Dioxide Anion Gap BUN Creatinine Estim Creat Clear Calc Estimated GFR Fasting Glucose Calcium Vancomycin Trough 10.3 HIV 1&2 Ab/P24 Ag 4thGn Nonreactive 02/11/21 05:41 WBC RBC Hgb Hct MCV MCH MCHC RDW Plt Count MPV Absolute Nucleated RBC Nucleated RBC % (auto) Sodium 134 L Potassium 4.5 Chloride 107 Carbon Dioxide 23 Anion Gap 9 L BUN 19 H Creatinine 0.86 Estim Creat Clear Calc 89.5 Estimated GFR > 60 Fasting Glucose 80 Calcium 8.0 L Vancomycin Trough HIV 1&2 Ab/P24 Ag 4thGn Microbiology Microbiology Results: Microbiology 02/08/21 23:37 Blood Culture - Preliminary Blood - Venous No growth after 48 hours. 02/08/21 23:37 Blood Culture - Preliminary Blood - Venous No growth after 48 hours. Quality Stroke Does the patient have a stroke diagnosis?: No VTE Prior VTE?: No VTE Risk Level:: Medical - moderate - high VTE Device Contraindication: Procedure Contraindicated VTE Drug Contraindication: N/A - Med Ordered Assessment and Plan (1) Chronic cutaneous venous stasis ulcer: Status: Inactive (2) Infected wound: (3) Opioid use disorder: (4) Cellulitis: Status: Resolved Assessment and Plan: 64-year-old male with past medical history of IV drug use as well as cocaine use presents to the hospital with complaints of 1 week history of pain as well as inflammation of his right lower extremity Right lower extremity cellulitis chronic venous stasis ulcer, worsening Negative cultures continue broad-spectrum antibiotics including vancomycin and Zosyn Vascular surgeon put appreciated, follow-up as outpatient and local wound care with wound clinic Vaseline gauze, Kerlix wrap, and Abram wrap from foot to below-knee continue iv antibiotics today, eventually will transistion to augmentin and doxy for 10 days polysubstance abuse disorder heroin as well as cocaine Continue on clonidine for possible withdrawal as well as hydroxyzine monitor for withdrawal symptoms hep C and liver cirrhosis partially treated, viral load negative in 2019 no evidence of decompensation DVT prophylaxis Lovenox
[2021-02-11] MEDS: hydrOXYzine HCL 25 MG TABLET PO (11:22)
[2021-02-11 11:48] LABS: Vancomycin Trough 11.7 mcg/mL (10.0-20.0)
[2021-02-11] MEDS: ACETIC ACID 0.25% 1 APPL TOPICAL (11:58)
[2021-02-11] MEDS: vancomycin HCL 1,000 MG in 0.9 % Sodium Chloride 250 ML 270 MG IV (12:54)
[2021-02-12] MEDS: Heparin Sodium,Porcine 5,000 UNIT/ML VIAL 5000 UNIT SUBCUT ×2 (00:10→08:33)
[2021-02-12] MEDS: 0.9 % Sodium Chloride Flush 3 ML SYRINGE IVFLUSH ×2 (00:10→08:33)
[2021-02-12] MEDS: Piperacillin Sodium/Tazobactam 3.375 GM in 0.9 % Sodium Chloride 50 ML IV ×3 (00:10→12:31)
[2021-02-12] MEDS: vancomycin HCL 1,000 MG in 0.9 % Sodium Chloride 250 ML 270 MG IV (00:47)
[2021-02-12 03:52] VITALS: BP 126/62; PULSE 67; RESP 16; TEMP 36.8; O2SAT 93
[2021-02-12 07:45] VITALS: BP 130/60; PULSE 63; RESP 18; TEMP 36.4; O2SAT 94
[2021-02-12 07:48] VITALS: BP 130/60; PULSE 62; RESP 18; TEMP 36.1; O2SAT 94
[2021-02-12 07:50] VITALS: BP 130/60; PULSE 62; RESP 18; TEMP 36.1
[2021-02-12] MEDS: Furosemide 20 MG TABLET PO (08:33)
--- NOTE | 2021-02-12 11:11 | PM.DS ---
DS: Providers Provider Date of Service: 02/12/21 Date of admission: 02/09/21 00:17 Primary care physician: Brandee Grey MD Consults: 02/09/21 00:13 Consult to Infectious Diseases Routine Consulting Provider: Muna Monreal Reason for consultation: Rt leg ulcers/wound/cellulitis; acute on chronic Consult to Vascular Surgery Routine Consulting Provider: Bassem Birmingham Reason for consultation: acute on chronic leg wounds/ulcers 02/09/21 00:20 Addiction Medicine Routine Consulting Provider: Anita Moran Reason for consultation: opiate abuse; on methadone per pt. DS: Diagnosis Discharge Diagnosis (1) Chronic cutaneous venous stasis ulcer: Status: Inactive (2) Infected wound: (3) Opioid use disorder: (4) Cellulitis: Status: Resolved DS: Medications Discharge Medications Home Medications: Home Medications Medication Instructions Recorded Confirmed furosemide 20 mg PO DAILY 02/09/21 02/09/21 methadone [Methadone Intensol] 60 mg PO DAILY 02/09/21 02/09/21 Previous Rx's Medication Instructions Recorded amoxicillin-pot clavulanate 1 tab PO BID #20 tab 02/12/21 [Augmentin] doxycycline hyclate 100 mg PO BID #20 cap 02/12/21 DS: Summary Hospital Course Hospital Course: Patient was admitted for right lower extremity cellulitis in setting of chronic venous stasis with ulcer and varicose veins. Patient was put on broad-spectrum antibiotics vancomycin and Zosyn. He was seen by vascular surgery who made recommendations for local care and to follow up outpatient. patient's pain and erythema improved. he was seen by ID who recommended 10 more days of oral doxy and augmentin. he will be discharged to SNF, expected to stay less than 30 days. Time Spent with Patient Time attestation: Total time spent providing and/or coordinating discharge services: Discharge coordination time: Greater than 30 minutes Quality: Stroke Does the patient have a stroke diagnosis?: No Physical Exam Vital Signs: Vital Signs: Last Vital Signs Temp 97.0 F 02/12/21 07:50 Pulse 62 02/12/21 07:50 Resp 18 02/12/21 07:50 BP 130/60 02/12/21 07:50 Pulse Ox 94 02/12/21 07:48 Body Mass Index 25.0 General: AO X 3, no acute distress Resp: CTA bilateral CVS: S1,S2,RRR GI: soft, non tender, non distended Neuro: motor grossly intact Psych: appropriate affect RLE varicose veins with ulcer DS: Data Data Completed and Pending Completed studies during hospitalization [Text1]: Procedures Detoxification Services for Substance Abuse Treatment (11/28/20) Labs on day of discharge: Laboratory Results - last 24 hr 02/11/21 10:55 Vancomycin Trough 11.7 Preliminary micro results at discharge 02/08/21 23:37 Blood Culture - Preliminary Blood - Venous No growth after 48 hours. 02/08/21 23:37 Blood Culture - Preliminary Blood - Venous No growth after 48 hours. Discharge Plan Discharge Patient Disposition: [facility] Discharge Diagnosis: infected stasis ulcer Referrals: Brandee Grey MD [Primary Care Provider] - 1 Week Discharge Medications: New amoxicillin-pot clavulanate [Augmentin] 875-125 mg tablet 1 tab PO BID Qty: 20 RF: 0 doxycycline hyclate 100 mg capsule 100 mg PO BID Qty: 20 RF: 0 Continued furosemide 20 mg Tablet 20 mg PO DAILY RF: 0 methadone [Methadone Intensol] 10 mg/mL Concentrate 60 mg PO DAILY RF: 0 Discharge Orders: Discharge Order (Routine); Ordered 02/12/21 Ordered By: Kumar Mckinney Diet: advance to usual diet Activity on Discharge: As tolerated Stand Alone Forms: Patient Portal Discharge page Care Plan Goals: recovery Health Concerns: varicose veins with ulcer and cellulitis Plan of Treatment: Saturate non woven gauze with acetic acid and lay over all venous ulcers on right lower leg and right dorsal foot then cover with dry gauze and roll gauze. Apply nelson wrap over gauze. 10 days augmentin and doxy Assessment: see above
[2021-02-12] MEDS: ACETIC ACID 0.25% 1 APPL TOPICAL (11:18)
[2021-02-12 11:20] VITALS: BP 130/60; PULSE 62
[2021-02-12] MEDS: oxyCODONE HCl Immed Release 5 MG TABLET PO (11:29)
[2021-02-12 12:00] VITALS: BP 129/61; PULSE 69; RESP 18; TEMP 36.8; O2SAT 93
[2021-02-12 12:06] LABS: COVID-19 Test Negative (Negative)
--- NOTE | 2021-02-12 12:06 | MHC.CM.PN ---
PT DISCHARGING TO [facility] ON ORAL ABX AT 1PM, [facility] FOR BLS TRANSPORT. AUGMENTIN 875-125MG BID X 10 DAYS AND DOXYCYCLINE 100MG BID X 10 DAYS, PT WILL NEED OUTPT WOUND CLINIC ONCE STR IS COMPLETE.
[2021-02-12 12:38] LABS: Vancomycin Trough 17.6 mcg/mL (10.0-20.0)
--- NOTE | 2021-02-12 13:18 | MHC.CM.PN ---
MDS AND NoWait PAUL FAXED TO [facility] [phone], RECEIVED FAX CONFIRMATION AT 11:54 AM, BOTH FORMS ALSO SENT TO [facility] VIA [facility].
== END 2021-02-12 13:45 | disposition skilled nursing facility (03) | DRG 197 ==
LOC: HO.ED 02-09 00:25 → HO.S3 02-09 01:20
PROVIDERS: Internal Medicine; Admitting Provider Hospitalist; Emergency Provider Student in an Organized Health Care Education/Training Program; PCP Family Medicine; Visit Provider Internal Medicine
DX: I87.331 Chronic venous hypertension (idiopathic) with ulcer and inflammation of right lower extremity (principal); F11.20 Opioid dependence, uncomplicated; K74.60 Unspecified cirrhosis of liver; L97.919 Non-pressure chronic ulcer of unspecified part of right lower leg with unspecified severity; L03.115 Cellulitis of right lower limb; B19.20 Unspecified viral hepatitis C without hepatic coma; F17.210 Nicotine dependence, cigarettes, uncomplicated; Z71.6 Tobacco abuse counseling; Z91.19 Patient's noncompliance with other medical treatment and regimen; Z20.822 Contact with and (suspected) exposure to COVID-19; M60.9 Myositis, unspecified; Z79.899 Other long term (current) drug therapy
CPT/HCPCS: 36415; 73701; 80048; 80053; 80202; 83605; 83735; 85025; 85027; 85610; 86140; 87040; 87389; 87635; 97110; 97116; 97162; 99218; 99285; J2543; J3370; Q9967

== ENCOUNTER 2021-03-09 20:10 | Inpatient (IN) | payer MEDICAID, SELFPAY ==
--- NOTE | ~2021-03-09 | CT_ITS ---
EXAMINATION: CT LOWER LEG, RIGHT WITHOUT CONTRAST CLINICAL INFORMATION: Question of cellulitis, gangrene and necrotizing fasciitis. COMPARISON: 02/09/2021 TECHNIQUE: Multidetector volumetric imaging of the right lower extremity performed without use of intravenous contrast. Coronal and sagittal reformatted images are obtained and reviewed. This CT examination was performed using dose optimization techniques as appropriate, variously including the following: *Automated exposure control *Adjustment of mA and/or kV according to patient size (this includes techniques or standardized protocols for targeted exams where dose is matched to indication/reason for exam; i.e. extremities or head) *Use of iterative reconstruction technique DLP: 381 mGy-cm FINDINGS: No acute osseous abnormalities. Normal alignment of the knee and ankle joints. No cortical destruction or intramedullary lucency to suggest osteomyelitis. Again seen is chronic periosteal reaction along the tibia and fibula. Small knee joint effusion, slightly larger than on the prior. Diffuse skin thickening and subcutaneous fat stranding present throughout the right lower extremity, particularly below the level of the knee and through the ankle and foot. There is also edema throughout the calf musculature and along the intermuscular fascial planes. No soft tissue gas is present. No drainable collection within the subcutaneous tissues or musculature. Varicosities redemonstrated within the subcutaneous fat. CT/CT lower leg RT wo con IMPRESSION: * Similar-appearing marked soft tissue swelling and edema of the subcutaneous tissues and calf musculature. The former could certainly represent cellulitis or sterile edema from an imaging standpoint. * No drainable collection to suggest abscess formation. * No evidence of osteomyelitis. * No soft tissue gas to suggest necrotizing fasciitis. * Stable chronic periosteal reaction throughout the tibia and fibula as can be seen with venous insufficiency or in the setting of chronic inflammation.
[2021-03-09 20:13] VITALS: BP 145/68; PULSE 90; RESP 16; TEMP 37.2; O2SAT 98; BMI 25.5
--- NOTE | 2021-03-09 23:40 | ED.WOUNDLAC ---
HPI - Wound/Laceration General Chief Complaint: Wound/Laceration Stated Complaint: leg pain Time Seen by Provider: 03/09/21 23:11 Source: patient Mode of arrival: ambulatory Limitations: no limitations History of Present Illness HPI narrative: Patient is a 65-year-old male with a past medical history of IVDA and methadone, polysubstance abuse, Hep C, cirrhosis, venous stasis ulcers, varicose veins, gangrene as well as cellulitis on the right lower extremity. Patient was just discharged from this hospital on February 12 on p.o. Augmentin and p.o. doxy for 30 days. He discharged himself from the rehab facility we sent him to, he was supposed to be there for 30 days but he had no one to watch his dog so he discharged himself. He states he did finish 30 days of the antibiotics however it has not even been 30 days so this is confusing. He states he does not have proper supplies to wrap the leg with and he did not go to wound care because he does not have a phone to call them. He denies fevers but states he does get chills sometimes Related Data Home Medications Medication Instructions Recorded Confirmed methadone 10 mg/mL oral 60 mg PO DAILY 02/09/21 03/10/21 concentrate (Methadone Intensol) Allergies Allergy/AdvReac Type Severity Reaction Status Date / Time trazodone [TRAZODONE] Allergy Intermediate RESTLESS Verified 03/10/21 00:45 LEGS Review of Systems Review of Systems: Yes all other systems are reviewed and are negative PMFSH Past Medical History Medical History Anemia Chronic cutaneous venous stasis ulcer Cirrhosis Depression Hepatitis C Infected wound Opioid use disorder Polysubstance abuse Tobacco dependence Surgical History H/O hernia repair Family History Family History Mother CAD (coronary artery disease) ESRD (end stage renal disease) Brother Liver failure Social History Social History Household Members: Friend(s) Housing: Apartment Housing Other:: rent room Do you presently have visiting nurse or other home services: No Alcohol intake: never Patient Tobacco Use Status: Current everyday Tobacco user Tobacco use type: Cigarette Cigarettes Per Day: 2 e-Cigarette/Vaping Use: Never Used Second Hand Smoke Exposure: Yes Substance Use Type: Heroin Advance Directives: No Advance Directives Information Provided: Yes service: No Current occupational status: unemployed and disabled Physical Exam Vital Signs: Vital Signs: Last Vital Signs Temp 99.0 F 03/09/21 20:13 Pulse 90 03/09/21 20:13 Resp 16 03/09/21 20:13 BP 145/68 H 03/09/21 20:13 Pulse Ox 98 03/09/21 20:13 Body Mass Index 25.5 Const: General: cooperative, comfortable, no acute distress and poor hygiene Nutritional Appearance: average body habitus Orientation/consciousness: patient oriented x3 Limitations: no limitations HENMT: Head: Yes normal to inspection Ears: hearing grossly normal bilaterally Eyes: General: appearance normal, both eyes and all related structures Neck: Neck: Yes normal visual inspection and Yes full ROM Resp: Effort & Inspection: normal respiratory effort Auscultation: clear to auscultation bilaterally Cardio: Rate: regular rate Rhythm: regular rhythm Neuro: General: patient oriented x3 Extrem: Other: Right lower extremity, maceration in between toes and on dorsum of foot, entire right lower extremity has edema, multiple ulcers, drainage and foul odor. Was wrapped with dirty gauze, saturated with yellow fluid and blood, sticking to skin. Cannot palpate pedal pulses. Course Course Course Narrative: Patient is a 65-year-old male with a past medical history of IVDA and methadone, polysubstance abuse, Hep C, cirrhosis, venous stasis ulcers, varicose veins, gangrene as well as cellulitis on the right lower extremity. Patient had for outpatient follow-up, he discharged himself early from the rehab facility and did not take all of the p.o. antibiotics as instructed, also had inferior wound care which he did himself, he never followed up with the [facility]ound Care Clinic. Will get CT scan of LE, labs and plan on admission for IV abx. Will give 1 dose of Vanco and Zosyn in ED. spoke with Dr. Blas. Reevaluation(s) Reevaluation #1: Leg CT showed: Similar-appearing marked soft tissue swelling and edema of the subcutaneous tissues and calf musculature. The former could certainly represent cellulitis or sterile edema from an imaging standpoint. *? No drainable collection to suggest abscess formation. *? No evidence of osteomyelitis. *? No soft tissue gas to suggest necrotizing fasciitis. *? Stable chronic periosteal reaction throughout the tibia and fibula as can be seen with venous insufficiency or in the setting of chronic inflammation. ? Time: 01:08 [facility] - Wound/Laceration Lab Data Attestation: I reviewed the patient's lab results. Result diagrams: 03/10/21 00:27 03/10/21 00:27 Labs: Lab Results 03/10/21 03/10/21 03/10/21 Range/Units 00:27 00:27 00:27 WBC 7.6 (4.8-10.8) X10*3/uL RBC 4.73 (4.60-5.80) X10*6/uL Hgb 12.3 L (14.0-18.0) g/dl Hct 38.6 L (42-52) % MCV 81.6 (80-98) fL MCH 26.0 L (27.0-33.0) pg MCHC 31.9 (31.0-36.0) g/dl RDW 16.7 H (11.0-16.0) % Plt Count 160 (160-400) X10*3/uL MPV 10.3 (9.4-12.4) fL Immature Gran % (Auto) 0.4 (0.0-0.4) % Neut % (Auto) 64.3 (45-73) % Lymph % (Auto) 22.1 (20-40) % Rankin % (Auto) 10.7 (2-11) % Eos % (Auto) 2.1 (0-4) % Baso % (Auto) 0.4 (0-2) % Lymph # (Auto) 1.7 (1.2-4.9) X10*3/uL Rankin # (Auto) 0.8 (0.1-1.2) X10*3/uL Eos # (Auto) 0.2 (0.0-0.4) X10*3/uL Baso # (Auto) 0.0 (0.0-0.2) X10*3/uL Abs Immat Gran (auto) 0.03 (0.00-0.03) X10*3/uL Absolute Neuts (auto) 4.9 (2.0-8.3) X10*3/uL Absolute Nucleated RBC 0.000 (0.0-0.012) X10*3/uL Nucleated RBC % (auto) 0.0 (0.0-0.2) /100WBC Sodium 136 (135-145) mmol/L Potassium 4.6 (3.3-5.1) mmol/L Chloride 102 (96-108) mmol/L Carbon Dioxide 26 (22-29) mmol/L Anion Gap 13 (12-20) BUN 13 (9-16) mg/dL Creatinine 0.92 (0.5-1.4) mg/dL Estim Creat Clear Calc 81.1 Estimated GFR > 60 Random Glucose 77 (60-115) mg/dL Lactic Acid 0.9 (0.5-2.0) mmol/L Calcium 9.1 D (8.4-10.2) mg/dL Total Bilirubin 0.8 (0.0-1.0) mg/dL AST 52 H (5-37) U/L ALT 27 (0-40) U/L Alkaline Phosphatase 133 H (39-117) U/L Total Protein 9.1 H (6.5-8.0) g/dL Albumin 3.4 L D (3.5-5.0) g/dL Imaging Data leg CT: Attestation: I personally reviewed and interpreted this imaging study as follows: Radiologist's impression: [place] [id number] CT Scan Report Signed Patient: aLrry Cooney MR#: [id number] : 1955 Acct:[id number] Age/Sex: 65 / M ADM Date: 03/09/21 Loc: HO.ED Attending Dr: Ordering Physician: Siri Parsons PA-C Date of Service: 03/10/21 Procedure(s): CT lower leg RT wo con Accession Number(s): [id number] cc: Siri Parsons PA-C~ EXAMINATION: CT LOWER LEG, RIGHT WITHOUT CONTRAST CLINICAL INFORMATION: Question of cellulitis, gangrene and necrotizing fasciitis.? COMPARISON: 02/09/2021? TECHNIQUE: Multidetector volumetric imaging of the right lower extremity performed without use of intravenous contrast. Coronal and sagittal reformatted images are obtained and reviewed. This CT examination was performed using dose optimization techniques as appropriate, variously including the following: *Automated exposure control *Adjustment of mA and/or kV according to patient size (this includes techniques or standardized protocols for targeted exams where dose is matched to indication/reason for exam; i.e. extremities or head) *Use of iterative reconstruction technique DLP: 381 mGy-cm? FINDINGS: No acute osseous abnormalities. Normal alignment of the knee and ankle joints. No cortical destruction or intramedullary lucency to suggest osteomyelitis. Again seen is chronic periosteal reaction along the tibia and fibula. Small knee joint effusion, slightly larger than on the prior. Diffuse skin thickening and subcutaneous fat stranding present throughout the right lower extremity, particularly below the level of the knee and through the ankle and foot. There is also edema throughout the calf musculature and along the intermuscular fascial planes. No soft tissue gas is present. No drainable collection within the subcutaneous tissues or musculature. Varicosities redemonstrated within the subcutaneous fat. CT/CT lower leg RT wo con IMPRESSION: *? Similar-appearing marked soft tissue swelling and edema of the subcutaneous tissues and calf musculature. The former could certainly represent cellulitis or sterile edema from an imaging standpoint. *? No drainable collection to suggest abscess formation. *? No evidence of osteomyelitis. *? No soft tissue gas to suggest necrotizing fasciitis. *? Stable chronic periosteal reaction throughout the tibia and fibula as can be seen with venous insufficiency or in the setting of chronic inflammation. ? ? Dictated By: MARTINEZ FARIAS MD Signed By: <Electronically signed by MARTINEZ FARIAS MD in OV> 03/10/21 0041 DD/ 0000 TD/TT:? Technology Strategist: JJ Discharge Plan Discharge Prescriptions: No Action methadone [Methadone Intensol] 10 mg/mL Concentrate 60 mg PO DAILY RF: 0
[2021-03-10] VITALS (7 sets, daily range): BP systolic 118–158; BP diastolic 66–78; PULSE 61–70; RESP 16–18; TEMP 35.5–37; O2SAT 97–99
[2021-03-10 00:39] LABS: MANUAL DIFF FLAG NO
[2021-03-10 00:40] LABS: Basophils Percent Auto 0.4 % (0-2); Eosinophils Absolute Auto 0.2 X10*3/uL (0.0-0.4); Eosinophils Percent Auto 2.1 % (0-4); Hematocrit 38.6 % (42-52); Hemoglobin 12.3 g/dl (14.0-18.0); Imm Gran Abs Auto 0.03 X10*3/uL (0.00-0.03); Imm Gran Pct Auto 0.4 % (0.0-0.4); Lymphocytes Absolute Auto 1.7 X10*3/uL (1.2-4.9); Lymphocytes Percent Auto 22.1 % (20-40); Mean Corpuscular HGB Conc 31.9 g/dl (31.0-36.0); Mean Corpuscular Volume 81.6 fL (80-98); Mean Platelet Volume 10.3 fL (9.4-12.4); Monocytes Absolute Auto 0.8 X10*3/uL (0.1-1.2); Monocytes Percent Auto 10.7 % (2-11); Neutrophils Absolute Auto 4.9 X10*3/uL (2.0-8.3); Neutrophils Percent Auto 64.3 % (45-73); Platelet Count 160 X10*3/uL (160-400); Red Blood Count 4.73 X10*6/uL (4.60-5.80); Red Cell Distribution Width 16.7 % (11.0-16.0); White Blood Count 7.6 X10*3/uL (4.8-10.8)
--- NOTE | 2021-03-10 00:41 | PC.NURSE ---
This RN previously unable to access [facility] link and patient's chart or scan anything. Labs labeled and sent with this RN's mnemonic (ABLIAI) and collection time. Lab made aware of this RN's lack of access. IT department also contacted regarding issue and is now resolved. Will continue to monitor.
[2021-03-10 00:56] LABS: Lactic Acid 0.9 mmol/L (0.5-2.0)
[2021-03-10 01:04] LABS: Alanine Aminotransferase 27 U/L (0-40); Albumin Level 3.4 g/dL (3.5-5.0); Alkaline Phosphatase 133 U/L (39-117); Anion Gap 13 (12-20); Aspartate Amino Transferase 52 U/L (5-37); Bilirubin Total 0.8 mg/dL (0.0-1.0); Blood Urea Nitrogen 13 mg/dL (9-16); Calcium 9.1 mg/dL (8.4-10.2); Carbon Dioxide 26 mmol/L (22-29); Chloride 102 mmol/L (96-108); Creatinine Clr Calc Pharmacy 81.1; Estimated Glomerular Filt Rate > 60; Glucose Random 77 mg/dL (60-115); Potassium 4.6 mmol/L (3.3-5.1); Sodium 136 mmol/L (135-145); Total Protein 9.1 g/dL (6.5-8.0)
[2021-03-10] MEDS: Piperacillin Sodium/Tazobactam 3.375 GM in 0.9 % Sodium Chloride 50 ML IV ×2 (01:37→08:43)
--- NOTE | 2021-03-10 01:45 | P.HPHOSP_ITS ---
History of Present Illness Date of Service: 03/10/21 Chief Complaint: Right leg pain redness and swelling 65-year-old male with a past medical history of will be dependence-on methadone; history of hep C, liver cirrhosis, history of chronic right lower extremity venous stasis/venous stasis ulcers, recent admission to the hospital for right lower extremity cellulitis; finished course of antibiotics; presented to the hospital today with a chief complaint of right lower extremity pain redness and swelling for the past 7-10 days; denies any fever chills and cough. Denies any chest pain palpitations lightheadedness or dizziness. Mentioned that he has open ulcers; reports mild serosanguineous discharge but denies any pus. Review of all other systems is negative except mentioned above ER course: Per ER team patient CT scan showed soft tissue swelling; no drainable abscess; no evidence of osteomyelitis no evidence of gas or necrotizing fasciitis; given broad-spectrum antibiotics. Admitted to the hospital for further management PMFSH Medical History Anemia Chronic cutaneous venous stasis ulcer Cirrhosis Depression Hepatitis C Infected wound Opioid use disorder Polysubstance abuse Tobacco dependence Family History Mother CAD (coronary artery disease) ESRD (end stage renal disease) Brother Liver failure Surgical History H/O hernia repair Social History Household Members: Other Household Members Other:: Currently residing in a rehab facility Housing: Other Housing Other:: Currently residing in a rehab facility Do you presently have visiting nurse or other home services: No Alcohol intake: never Patient Tobacco Use Status: Current everyday Tobacco user Tobacco use type: Cigarette Cigarettes Per Day: 2 Years Smoked: 40 e-Cigarette/Vaping Use: Never Used Second Hand Smoke Exposure: Yes Substance Use Type: Crack/Cocaine and Heroin service: No Current occupational status: unemployed and disabled Meds Allergies Allergy/AdvReac Type Severity Reaction Status Date / Time trazodone [TRAZODONE] Allergy Intermediate RESTLESS Verified 03/10/21 00:45 LEGS Active Medications: Current Medications Generic Name Dose Route Start Last Admin Trade Name Freq PRN Reason Stop Dose Admin Heparin Sodium (Porcine) 5,000 unit 03/10/21 01:45 Heparin Sodium,Porcine 5,000 Unit/Ml Vial SUBCUT Q8H [facility] Vancomycin HCl 1,000 mg/ 270 mls @ 270 mls/hr 03/10/21 01:45 Sodium Chloride IV Q12H [facility] Piperacillin Sod/Tazobactam 50 mls @ 100 mls/hr 03/10/21 01:45 Sod 3.375 gm/ Sodium Chloride IV Q6H [facility]ID Melatonin 6 mg 03/10/21 01:37 Melatonin 3 Mg Tablet PO BEDTIME PRN Insomnia Oxycodone HCl 5 mg 03/10/21 01:37 Oxycodone Hcl Immed Release 5 Mg Tablet PO Q6H PRN Pain, Severe (Pain Scale 7-10) Pharmacy Consult 1 each 03/09/21 23:57 Consult Rx Vancomycin Dosing MISCELLANE DAILY PRN Consult order Pharmacy Consult 1 each 03/10/21 00:01 Consult Rx Perform Med Rec MISCELLANE ONCE PRN Consult order Pharmacy Consult 1 each 03/10/21 01:37 Consult Rx Vancomycin Dosing MISCELLANE DAILY PRN Consult order Senna 17.2 mg 03/10/21 01:37 Sennosides 8.6 Mg Tablet PO BEDTIME PRN Constipation Sodium Chloride 3 ml 03/10/21 08:00 0.9 % Sodium Chloride Flush 3 Ml Syringe IVFLUSH QSHIFT [facility] Home Medications Medication Instructions Recorded Confirmed Last Taken Type methadone 10 mg/mL oral 60 mg PO DAILY 02/09/21 03/10/21 03/09/21 History concentrate (Methadone Intensol) Physical Exam Vital Signs and Narrative: Vital Signs: Last Vital Signs Temp 99.0 F 03/09/21 20:13 Pulse 90 03/09/21 20:13 Resp 16 03/09/21 20:13 BP 145/68 H 03/09/21 20:13 Pulse Ox 98 03/09/21 20:13 Body Mass Index 25.5 Gen: Appears be in no acute distress HEENT: NCAT, Moist mucosa. Pulmonary: Vesicular breath sounds, fair air entry CVS: Normal S1-S2 Abdomen: BS+, Soft, Nontender Extremities: Warm well perfused; right lower extremity -> warm hyperemic and tender; noted multiple wounds; diffuse low scaling noted. Range of motion at the ankle is limited secondary to the swelling. Neuro: Alert and awake. Results Labs CBC and Chem 7: 03/11/21 06:26 03/11/21 06:26 Labs: Laboratory Results - last 24 hr 03/10/21 03/10/21 03/10/21 00:27 00:27 00:27 MCV 81.6 MCH 26.0 L MCHC 31.9 RDW 16.7 H Plt Count 160 MPV 10.3 Immature Gran % (Auto) 0.4 Neut % (Auto) 64.3 Lymph % (Auto) 22.1 [place] % (Auto) 10.7 Eos % (Auto) 2.1 Baso % (Auto) 0.4 Lymph # (Auto) 1.7 [place] # (Auto) 0.8 Eos # (Auto) 0.2 Baso # (Auto) 0.0 Abs Immat Gran (auto) 0.03 Absolute Neuts (auto) 4.9 Absolute Nucleated RBC 0.000 Nucleated RBC % (auto) 0.0 Anion Gap 13 Estim Creat Clear Calc 81.1 Estimated GFR > 60 Random Glucose 77 Lactic Acid 0.9 Calcium 9.1 D Total Bilirubin 0.8 AST 52 H ALT 27 Alkaline Phosphatase 133 H Total Protein 9.1 H Albumin 3.4 L D Procalcitonin 03/10/21 00:27 MCV MCH MCHC RDW Plt Count MPV Immature Gran % (Auto) Neut % (Auto) Lymph % (Auto) [place] % (Auto) Eos % (Auto) Baso % (Auto) Lymph # (Auto) [place] # (Auto) Eos # (Auto) Baso # (Auto) Abs Immat Gran (auto) Absolute Neuts (auto) Absolute Nucleated RBC Nucleated RBC % (auto) Anion Gap Estim Creat Clear Calc Estimated GFR Random Glucose Lactic Acid Calcium Total Bilirubin AST ALT Alkaline Phosphatase Total Protein Albumin Procalcitonin 0.10 Imaging Radiologist's Impressions: Impressions Lower Extremity CT 03/10/21 00:00 IMPRESSION: * Similar-appearing marked soft tissue swelling and edema of the subcutaneous tissues and calf musculature. The former could certainly represent cellulitis or sterile edema from an imaging standpoint. * No drainable collection to suggest abscess formation. * No evidence of osteomyelitis. * No soft tissue gas to suggest necrotizing fasciitis. * Stable chronic periosteal reaction throughout the tibia and fibula as can be seen with venous insufficiency or in the setting of chronic inflammation. Assessment and Plan (1) Cellulitis: Status: Acute 65-year-old male with a past medical history of opiate dependence on methadone, history of hep C, cirrhosis, chronic right lower extremity venous stasis/ulcers; presented to the hospital with chief complaint of right lower extremity pain redness and swelling. Admitted for further management. Right lower extremity chronic venous stasis/venous stasis ulcer/recurrent cellulitis: Continue IV vanc and Zosyn. Will consult ID and vascular surgery for further recommendations. History of opiate dependence: Patient on methadone. Will consult addiction Medicine. DVT prophylaxis: Subcu heparin Code status: Full code Quality Stroke Does the patient have a stroke diagnosis?: No VTE Prior VTE?: No VTE Risk Level:: Medical - moderate - high VTE Device Contraindication: Treatment Not Indicated VTE Drug Contraindication: N/A - Med Ordered
[2021-03-10 02:31] LABS: COVID-19 Test Negative (Negative); IDNOW Serial# 9DD0AD1C
[2021-03-10] MEDS: vancomycin HCL 1,250 MG in 0.9 % Sodium Chloride 250 ML 166.67 MG IV (02:45)
[2021-03-10] MEDS: Heparin Sodium,Porcine 5,000 UNIT/ML VIAL 5000 UNIT SUBCUT ×3 (02:46→17:58)
[2021-03-10] MEDS: oxyCODONE HCl Immed Release 5 MG TABLET PO (04:36)
[2021-03-10 07:16] LABS: MANUAL DIFF FLAG NO
[2021-03-10 07:33] LABS: Basophils Percent Auto 0.3 % (0-2); Eosinophils Absolute Auto 0.5 X10*3/uL (0.0-0.4); Hematocrit 31.4 % (42-52); Imm Gran Abs Auto 0.02 X10*3/uL (0.00-0.03); Imm Gran Pct Auto 0.3 % (0.0-0.4); Lymphocytes Absolute Auto 1.5 X10*3/uL (1.2-4.9); Lymphocytes Percent Auto 20.9 % (20-40); Mean Corpuscular HGB Conc 31.8 g/dl (31.0-36.0); Mean Corpuscular Hemoglobin 26.1 pg (27.0-33.0); Mean Platelet Volume 10.1 fL (9.4-12.4); Monocytes Absolute Auto 1.2 X10*3/uL (0.1-1.2); Monocytes Percent Auto 16.7 % (2-11); Neutrophils Absolute Auto 3.9 X10*3/uL (2.0-8.3); Neutrophils Percent Auto 54.8 % (45-73); Platelet Count 128 X10*3/uL (160-400); Red Blood Count 3.83 X10*6/uL (4.60-5.80); Red Cell Distribution Width 16.9 % (11.0-16.0); White Blood Count 7.1 X10*3/uL (4.8-10.8)
[2021-03-10 07:52] LABS: Anion Gap 8 (12-20); Blood Urea Nitrogen 15 mg/dL (9-16); Calcium 8.2 mg/dL (8.4-10.2); Carbon Dioxide 28 mmol/L (22-29); Chloride 106 mmol/L (96-108); Creatinine Clr Calc Pharmacy 86.7; Estimated Glomerular Filt Rate > 60; Glucose Random 94 mg/dL (60-115); Sodium 138 mmol/L (135-145)
--- NOTE | 2021-03-10 08:26 | PHA.MEDREC ---
Pharmacy Consult ? Medication Reconciliation Pharmacy has completed the medication reconciliation. spoke with patient- pt is only on methadone
--- NOTE | 2021-03-10 09:24 | PM.CNGS ---
History of Present Illness Consult details Consult date: 03/10/21 Reason for consult: wound care Narrative: 65-year-old gentleman with a history opioid abuse disorder and polysubstance abuse in addition to hep C and liver cirrhosis presents for nonhealing right lower extremity ulcers. This has been a recurrent issue for him. He has developed significant ulcers in excoriation on the right lower extremity along with significant edema. He has been treated with antibiotics in the past. He now presents for vascular evaluation. Review of Systems Constitutional: Constitutional: Reports as per HPI ENT: Reports system reviewed and no additional complaints, except as documented Cardiovascular: Cardiovascular: Denies chest pain, Denies chest pain at rest and Denies chest pain with activity Respiratory: Respiratory: Denies chest congestion and Denies cough Gastrointestinal: Gastrointestinal: Reports no additional gastrointestinal complaints Musculoskeletal: Musculoskeletal: Denies abnormal gait Integumentary/Breasts: Skin/Breast: Reports pruritus and Denies wounds Neurologic: Reports system reviewed and no additional complaints, except as documented and Denies abnormal gait Psychiatric: Psychiatric: Denies no additional psychiatric complaints [facility] Past Medical History Medical History Anemia Chronic cutaneous venous stasis ulcer Cirrhosis Depression Hepatitis C Infected wound Opioid use disorder Polysubstance abuse Tobacco dependence Family History Family History Mother CAD (coronary artery disease) ESRD (end stage renal disease) Brother Liver failure Surgical History Surgical History H/O hernia repair Social History Social History Household Members: Other Household Members Other:: Currently residing in a rehab facility Housing: Other Housing Other:: Currently residing in a rehab facility Do you presently have visiting nurse or other home services: No Alcohol intake: never Patient Tobacco Use Status: Current everyday Tobacco user Tobacco use type: Cigarette Cigarettes Per Day: 2 Years Smoked: 40 Smoked in Last 30 Days: Yes e-Cigarette/Vaping Use: Never Used Patient Interested in Nicotine Replacement: No Second Hand Smoke Exposure: Yes Substance Use Type: Crack/Cocaine and Heroin Last Used Substance: Weeks (ago) Currently Displaying Signs/Symptoms of Drug Intoxication Withdrawal: No Any prior treatment program specific to substance use: Yes (on methadone) Have you been hit, kicked, punched, or otherwise hurt by someone within the past year? If so, by whom?: No Do you feel safe in your current relationship?: No Current Relationship Is there a partner from a previous relationship who is making you feel unsafe now?: No Are you made to feel afraid or neglected: No Advance Directives: No Advance Directives Information Provided: Yes Do you have thoughts of harming others: None Do you have a plan to hurt others: No Plan Recently lost weight without trying: Unsure Nutrition Risks: Difficulty chewing service: No Current occupational status: unemployed and disabled Meds Allergies Allergy/AdvReac Type Severity Reaction Status Date / Time trazodone [TRAZODONE] Allergy Intermediate RESTLESS Verified 03/10/21 00:45 LEGS Active Medications: Current Medications Generic Name Dose Route Start Last Admin Trade Name Freq PRN Reason Stop Dose Admin Heparin Sodium (Porcine) 5,000 unit 03/10/21 01:45 03/10/21 08:43 Heparin Sodium,Porcine 5,000 Unit/Ml Vial SUBCUT 5,000 unit Q8H [facility]ID Administration Piperacillin Sod/Tazobactam 50 mls @ 100 mls/hr 03/10/21 09:30 03/10/21 08:43 Sod 3.375 gm/ Sodium Chloride IV 100 mls/hr Q8H [facility]ID Administration Vancomycin HCl 750 mg/ Sodium 265 mls @ 265 mls/hr 03/10/21 15:00 Chloride IV Q12H [facility]ID Melatonin 6 mg 03/10/21 01:37 Melatonin 3 Mg Tablet PO BEDTIME PRN Insomnia Methadone HCl 60 mg 03/10/21 09:00 Methadone Hcl 1 Mg/0.1 Ml Oral.Conc PO DAILY [facility]ID Oxycodone HCl 5 mg 03/10/21 01:37 03/10/21 04:36 Oxycodone Hcl Immed Release 5 Mg Tablet PO 5 mg Q6H PRN Administration Pain, Severe (Pain Scale 7-10) Pharmacy Consult 1 each 03/10/21 00:01 Consult Rx Perform Med Rec MISCELLANE ONCE PRN Consult order Pharmacy Consult 1 each 03/10/21 01:37 Consult Rx Vancomycin Dosing MISCELLANE DAILY PRN Consult order Senna 17.2 mg 03/10/21 01:37 Sennosides 8.6 Mg Tablet PO BEDTIME PRN Constipation Sodium Chloride 3 ml 03/10/21 08:00 0.9 % Sodium Chloride Flush 3 Ml Syringe [facility] Home Medications Medication Instructions Recorded Confirmed Last Taken Type methadone 10 mg/mL oral 60 mg PO DAILY 02/09/21 03/10/21 03/09/21 History concentrate (Methadone Intensol) Physical Exam Vital Signs: Vital Signs: Last Vital Signs Temp 97.1 F 03/10/21 07:28 Pulse 66 03/10/21 07:28 Resp 18 03/10/21 07:28 BP 129/76 03/10/21 07:28 Pulse Ox 98 03/10/21 07:28 Body Mass Index 25.5 Const: General: cooperative, healthy appearing and comfortable Orientation/consciousness: oriented to person, oriented to place and oriented to time Neck: Carotids: no bruits Chest: Chest palpation & inspection: normal inspection of the chest and normal palpation of entire chest wall Resp: Effort & Inspection: normal respiratory effort and able to speak in complete sentences Cardio: Rate: regular rate Heart sounds: S1 normal heart sound present and S2 normal heart sound present Peripheral pulses: Peripheral pulses 2+ throughout GI: Inspection: Yes normal to inspection Skin: Other: +2 edema, right greater than left, dry as Kunal did skin General skin exam: dry skin Full body images: 1. ulcer 2. multiple ulcers Neuro: General: oriented to person, oriented to place and oriented to time Extrem: General: Yes edema Right lower extremity: full ROM, normal capillary refill and edema Left lower extremity: full ROM, normal capillary refill and edema Psych: Mental Status: mental status grossly normal Results Labs Result diagrams: 03/10/21 06:21 03/10/21 06:21 Labs: Abnormal lab results 03/10/21 03/10/21 03/10/21 Range/Units 00:27 00:27 06:21 RBC 3.83 L (4.60-5.80) X10*6/uL Hgb 12.3 L 10.0 L (14.0-18.0) g/dl Hct 38.6 L 31.4 L (42-52) % MCH 26.0 L 26.1 L (27.0-33.0) pg RDW 16.7 H 16.9 H (11.0-16.0) % Plt Count 128 L (160-400) X10*3/uL [place] % (Auto) 16.7 H (2-11) % Eos % (Auto) 7.0 H (0-4) % Eos # (Auto) 0.5 H (0.0-0.4) X10*3/uL Anion Gap (12-20) Calcium (8.4-10.2) mg/dL AST 52 H (5-37) U/L Alkaline Phosphatase 133 H (39-117) U/L Total Protein 9.1 H (6.5-8.0) g/dL Albumin 3.4 L D (3.5-5.0) g/dL 03/10/21 Range/Units 06:21 RBC (4.60-5.80) X10*6/uL Hgb (14.0-18.0) g/dl Hct (42-52) % MCH (27.0-33.0) pg RDW (11.0-16.0) % Plt Count (160-400) X10*3/uL [place] % (Auto) (2-11) % Eos % (Auto) (0-4) % Eos # (Auto) (0.0-0.4) X10*3/uL Anion Gap 8 L (12-20) Calcium 8.2 L D (8.4-10.2) mg/dL AST (5-37) U/L Alkaline Phosphatase (39-117) U/L Total Protein (6.5-8.0) g/dL Albumin (3.5-5.0) g/dL Short CBC 03/10/21 03/10/21 Range/Units 00:27 06:21 WBC 7.6 7.1 (4.8-10.8) X10*3/uL Hgb 12.3 L 10.0 L (14.0-18.0) g/dl Hct 38.6 L 31.4 L (42-52) % Plt Count 160 128 L (160-400) X10*3/uL BMP 03/10/21 03/10/21 00:27 06:21 Sodium 136 138 Potassium 4.6 4.0 Chloride 102 106 Carbon Dioxide 26 28 BUN 13 15 Creatinine 0.92 0.86 Calcium 9.1 D 8.2 L D Liver Function 03/10/21 Range/Units 00:27 Total Bilirubin 0.8 (0.0-1.0) mg/dL AST 52 H (5-37) U/L ALT 27 (0-40) U/L Alkaline Phosphatase 133 H (39-117) U/L Albumin 3.4 L D (3.5-5.0) g/dL All other labs normal. Assessment and Plan (1) Varicose veins of right lower extremity with inflammation: Status: Acute In short patient has nonhealing ulcer right lower extremity. He does have palpable pulses. He will need workup as an outpatient for venous insufficiency and possible ablation. At the current time would recommend conservative measures including local wound care Abram wrap leg elevation as much as possible. He can follow up with me as an outpatient. Thank you for allowing us to assist in his care. Procedures Date of Service Date of Service: 03/10/21
[2021-03-10] MEDS: 0.9 % Sodium Chloride Flush 3 ML SYRINGE IVFLUSH ×2 (10:07→15:26)
--- NOTE | 2021-03-10 12:09 | MHC.CM.PN ---
met with pt who was recently dcd from [facility] pt explins that he left [facility] cause he had no one to care for his dog ..he would agree to return to [facility] if needed pt is on methadone from [facility] pt may need vna if not str
--- NOTE | 2021-03-10 13:22 | PM.EVENT ---
Event Note Date of Service: 03/10/21 Event Note: Day Team follow up S Admitted early this AM. No new complaints seen by vascular and RLE placed in dressing O vitals - last documented Gen - NAD CVS - S1S2 Lungs - clear Abd - soft nt/nd Ext - RLE in dressing A/p 65 yo M treated with IV antibiotics last month and transitioned to oral meds for RLE skin infection. Discharged to SNF. Apparently he left there on his own accord as he has to care for his pet. Now presents with similar story - chronic non-healing wounds in the setting of venous stasis +/- acute superinfection CT showing same findings as previous. He does have chronic wounds and needs local wound care. Continue antibiotics for now -- will await ID input to see if he needs to me on systemic antibiotics. Vascular input appreciated -- to follow up with Dr. Birmingham in his clinic for definitive Rx of his chronic venous insufficiency.
[2021-03-10] MEDS: vancomycin HCL 750 MG in 0.9 % Sodium Chloride 250 ML 265 MG IV (15:22)
--- NOTE | 2021-03-10 16:21 | W.PM.IDCN ---
History of Present Illness Data of Consult Service Date: 03/10/21 Requesting physician: Reyes Hoffmann Primary Care Provider: Brandee Grey MD HPI Reason for consult: leg excoriation,weeping,chronic He presents with bilateral leg excoriation and erythema right more than left. He has had admission last month and I saw 02/09 when he was discharged for presumed cellulitis/myositis to facility and supposedly completed ten to thirty days of po antibiotics and supposed to follow with Wound Clinic. He left AMA and has not changed dressing in two weeks possibly Review of Systems Review of Systems: Yes all other systems are reviewed and are negative [facility] Past Medical History Medical History (Updated 03/10/21 @ 01:10 by Siri Parsons PA-C) Anemia Chronic cutaneous venous stasis ulcer Cirrhosis Depression Hepatitis C Infected wound Opioid use disorder Polysubstance abuse Tobacco dependence Family History Family History Mother CAD (coronary artery disease) ESRD (end stage renal disease) Brother Liver failure Surgical History Surgical History H/O hernia repair Social History Social History Household Members: Other Household Members Other:: Currently residing in a rehab facility Housing: Other Housing Other:: Currently residing in a rehab facility Do you presently have visiting nurse or other home services: No Alcohol intake: never Patient Tobacco Use Status: Current everyday Tobacco user Tobacco use type: Cigarette Cigarettes Per Day: 2 Years Smoked: 40 e-Cigarette/Vaping Use: Never Used Second Hand Smoke Exposure: Yes Substance Use Type: Crack/Cocaine and Heroin service: No Current occupational status: unemployed and disabled Meds Allergies Allergy/AdvReac Type Severity Reaction Status Date / Time trazodone [TRAZODONE] Allergy Intermediate RESTLESS Verified 03/10/21 00:45 LEGS Active Medications: Current Medications Generic Name Dose Route Start Last Admin Trade Name Freq PRN Reason Stop Dose Admin Heparin Sodium (Porcine) 5,000 unit 03/10/21 01:45 03/10/21 08:43 Heparin Sodium,Porcine 5,000 Unit/Ml Vial SUBCUT 5,000 unit Q8H DAVID Administration Piperacillin Sod/Tazobactam 50 mls @ 100 mls/hr 03/10/21 09:30 03/10/21 09:26 Sod 3.375 gm/ Sodium Chloride IV Infused Q8H DAVID Infusion Vancomycin HCl 750 mg/ Sodium 265 mls @ 265 mls/hr 03/10/21 15:00 03/10/21 15:22 Chloride IV 265 mls/hr Q12H DAVID Administration Melatonin 6 mg 03/10/21 01:37 Melatonin 3 Mg Tablet PO BEDTIME PRN Insomnia Methadone HCl 60 mg 03/10/21 09:00 03/10/21 11:00 Methadone Hcl 1 Mg/0.1 Ml Oral.Conc PO 60 mg DAILY DAVID Administration Oxycodone HCl 5 mg 03/10/21 01:37 03/10/21 04:36 Oxycodone Hcl Immed Release 5 Mg Tablet PO 5 mg Q6H PRN Administration Pain, Severe (Pain Scale 7-10) Pharmacy Consult 1 each 03/10/21 00:01 Consult Rx Perform Med Rec MISCELLANE ONCE PRN Consult order Pharmacy Consult 1 each 03/10/21 01:37 Consult Rx Vancomycin Dosing MISCELLANE DAILY PRN Consult order Senna 17.2 mg 03/10/21 01:37 Sennosides 8.6 Mg Tablet PO BEDTIME PRN Constipation Sodium Chloride 3 ml 03/10/21 08:00 03/10/21 15:26 0.9 % Sodium Chloride Flush 3 Ml Syringe IVFLUSH 3 ml QSHIFT DAVID Administration Home Medications Medication Instructions Recorded Confirmed Last Taken Type methadone 10 mg/mL oral 60 mg PO DAILY 02/09/21 03/10/21 03/09/21 History concentrate (Methadone Intensol) Physical Exam Vital Signs: Vital Signs: Last Vital Signs Temp 98.5 F 03/10/21 15:14 Pulse 61 03/10/21 15:14 Resp 17 03/10/21 15:14 BP 130/68 03/10/21 15:14 Pulse Ox 98 03/10/21 15:14 Body Mass Index 25.5 Const: General: cooperative HENMT: Head: Yes normal to inspection Mouth: Normal oral and palatal mucosa present Eyes: General: appearance normal, both eyes and all related structures Resp: Effort & Inspection: normal respiratory effort Cardio: Rate: regular rate Rhythm: regular rhythm GI: Palpation (GI): Soft to palpation and nontender Skin: General skin exam: no rashes or lesions noted Extrem: Other: right more than left scaling and erythema excoriation Results Labs CBC & Chem 7: 03/10/21 06:21 03/10/21 06:21 Labs: Short CBC 03/10/21 03/10/21 Range/Units 00:27 06:21 WBC 7.6 7.1 (4.8-10.8) X10*3/uL Hgb 12.3 L 10.0 L (14.0-18.0) g/dl Hct 38.6 L 31.4 L (42-52) % Plt Count 160 128 L (160-400) X10*3/uL BMP 03/10/21 03/10/21 00:27 06:21 Sodium 136 138 Potassium 4.6 4.0 Chloride 102 106 Carbon Dioxide 26 28 BUN 13 15 Creatinine 0.92 0.86 Calcium 9.1 D 8.2 L D Liver Function 03/10/21 Range/Units 00:27 Total Bilirubin 0.8 (0.0-1.0) mg/dL AST 52 H (5-37) U/L ALT 27 (0-40) U/L Alkaline Phosphatase 133 H (39-117) U/L Albumin 3.4 L D (3.5-5.0) g/dL Assessment and Plan (1) Opioid use disorder: Status: Acute (2) Gangrene: Status: Acute (3) Varicose veins of right lower extremity with inflammation: Status: Acute He has scaly weepy excoriation from lack of Wound care and self care maintenance to legs He has chronic scaling and looks similar to last visit if not better He has no evidence of osteomyelitis at this time Would stop antibiotics He has no elevated WBC or fever He has had extensive antibiotics treatment over last month He needs case navigation and Wound Care topical treatments so doesnt keep ending up in ER
[2021-03-11] VITALS (7 sets, daily range): BP systolic 110–141; BP diastolic 59–73; PULSE 55–64; RESP 16–20; TEMP 36.2–37.5; O2SAT 96–98
[2021-03-11] MEDS: Heparin Sodium,Porcine 5,000 UNIT/ML VIAL 5000 UNIT SUBCUT ×3 (03:06→17:32)
[2021-03-11 06:53] LABS: Hematocrit 32.4 % (42-52); Hemoglobin 10.3 g/dl (14.0-18.0); Mean Corpuscular HGB Conc 31.8 g/dl (31.0-36.0); Mean Corpuscular Hemoglobin 25.9 pg (27.0-33.0); Mean Corpuscular Volume 81.6 fL (80-98); Mean Platelet Volume 10.2 fL (9.4-12.4); Platelet Count 142 X10*3/uL (160-400); Red Blood Count 3.97 X10*6/uL (4.60-5.80); Red Cell Distribution Width 16.6 % (11.0-16.0); White Blood Count 8.3 X10*3/uL (4.8-10.8)
[2021-03-11 07:25] LABS: Anion Gap 10 (12-20); Blood Urea Nitrogen 15 mg/dL (9-16); Calcium 7.9 mg/dL (8.4-10.2); Carbon Dioxide 24 mmol/L (22-29); Chloride 106 mmol/L (96-108); Creatinine Clr Calc Pharmacy 86.7; Estimated Glomerular Filt Rate > 60; Glucose Random 80 mg/dL (60-115); Potassium 4.6 mmol/L (3.3-5.1); Sodium 135 mmol/L (135-145)
[2021-03-11] MEDS: 0.9 % Sodium Chloride Flush 3 ML SYRINGE IVFLUSH ×3 (09:57→17:32)
--- NOTE | 2021-03-11 11:04 | HO.PM.IMPN ---
Subjective Subjective Date of Service: 03/11/21 Interval History: seen and examined feels better Review of Systems General - no fevers or chills Cardiovascular - no chest pain Respiratory - no shortness of breath or cough Abdominal- no abdominal pain, nausea, vomiting, diarrhea Physical Exam Vital Signs: Vital Signs: Last Vital Signs Temp 97.6 F 03/11/21 07:30 Pulse 55 03/11/21 07:30 Resp 18 03/11/21 07:30 BP 119/71 03/11/21 07:30 Pulse Ox 96 03/11/21 07:30 Body Mass Index 25.5 Const: Other: General - no acute distress, appears comfortable Cardiovascular - regular rate and rhythm, S1-S2 Lungs - normal respiratory effort, clear to auscultation bilaterally, no wheezing Abdomen - soft, nontender, no rebound or guarding Extremities - RLE in dressing Neuro - awake and alert, no focal deficits Objective Data Current Medications Generic Name Dose Route Start Last Admin Trade Name Freq PRN Reason Stop Dose Admin Heparin Sodium (Porcine) 5,000 unit 03/10/21 01:45 03/11/21 09:57 Heparin Sodium,Porcine 5,000 Unit/Ml Vial SUBCUT 5,000 unit Q8H DAVID Administration Melatonin 6 mg 03/10/21 01:37 Melatonin 3 Mg Tablet PO BEDTIME PRN Insomnia Methadone HCl 60 mg 03/10/21 09:00 03/11/21 09:58 Methadone Hcl 1 Mg/0.1 Ml Oral.Conc PO 60 mg DAILY DAVID Administration Oxycodone HCl 5 mg 03/10/21 01:37 03/10/21 04:36 Oxycodone Hcl Immed Release 5 Mg Tablet PO 5 mg Q6H PRN Administration Pain, Severe (Pain Scale 7-10) Pharmacy Consult 1 each 03/10/21 00:01 Consult Rx Perform Med Rec MISCELLANE ONCE PRN Consult order Pharmacy Consult 1 each 03/10/21 01:37 Consult Rx Vancomycin Dosing MISCELLANE DAILY PRN Consult order Senna 17.2 mg 03/10/21 01:37 Sennosides 8.6 Mg Tablet PO BEDTIME PRN Constipation Sodium Chloride 3 ml 03/10/21 08:00 03/11/21 09:57 0.9 % Sodium Chloride Flush 3 Ml Syringe IVFLUSH 3 ml QSHIFT DAVID Administration Labs CBC & Chem 7: 03/11/21 06:26 08/05/21 06:26 Labs: Laboratory Results - last 24 hr 03/11/21 03/11/21 06:26 06:26 MCV 81.6 MCH 25.9 L MCHC 31.8 RDW 16.6 H Plt Count 142 L MPV 10.2 Absolute Nucleated RBC 0.000 Nucleated RBC % (auto) 0.0 Anion Gap 10 L Estim Creat Clear Calc 86.7 Estimated GFR > 60 Random Glucose 80 Calcium 7.9 L Microbiology Microbiology Results: Microbiology 03/10/21 00:27 Blood Culture - Preliminary Blood - Venous No growth after 24 hours. 03/10/21 00:27 Blood Culture - Preliminary Blood - Venous No growth after 24 hours. Assessment and Plan (1) Venous stasis ulcer: Status: Acute Assessment and Plan: 65 yo M with venous insufficiency and resultant RLE chronic issues admitted for possible super imposed cellulitis. 1. Chronic venous status ulcers and insufficiency antibiotics discontinued -- ID input apprecaited seen by Vascular -- needs outpatient f/u with vascular + wound care 2. Chronic opiate dependence methadone 3. Generalized weakness PT eval Full Code DVT pptx - subcut heparin dispo: home with services vs STR today Quality Stroke Does the patient have a stroke diagnosis?: No VTE Prior VTE?: No VTE Risk Level:: Medical - moderate - high VTE Device Contraindication: Treatment Not Indicated VTE Drug Contraindication: N/A - Med Ordered
--- NOTE | 2021-03-11 16:29 | MHC.CM.PN ---
CM MET WITH PT HE IS AWARE PT RECOMMENDED STR. HARMONY INFORMED HIM [facility], WHERE HE HAD REQUESTED A REFERRAL BE PLACED, DID NOT HAVE A BED TODAY. AFTER DISCUSSION, PT REPORTS HE WOULD LIKE A REFERRAL SENT TO [facility]. CM INFORMED HIM THEY DID NOT HAVE A BED TODAY. PT REPORTS HE WOULD LIKE TO SEE IF THEY HAVE ONE TOMORROW AND IF NOT WE WILL DISCUSS POSSIBLE DC HOME
[2021-03-12] MEDS: Heparin Sodium,Porcine 5,000 UNIT/ML VIAL 5000 UNIT SUBCUT ×2 (01:12→08:56)
[2021-03-12] MEDS: 0.9 % Sodium Chloride Flush 3 ML SYRINGE IVFLUSH ×2 (01:14→08:55)
[2021-03-12 04:00] VITALS: BP 118/61; PULSE 67; RESP 18; TEMP 36.6; O2SAT 97
[2021-03-12 08:00] VITALS: BP 117/58; PULSE 58; RESP 18; TEMP 36.8; O2SAT 98
[2021-03-12 09:58] VITALS: BP 117/58; PULSE 58; O2SAT 98
[2021-03-12 11:10] VITALS: BP 113/63; PULSE 61; RESP 18; TEMP 36.2; O2SAT 98
--- NOTE | 2021-03-12 11:12 | HO.VASCPN ---
Subjective Subjective Date of Service: 03/12/21 Patient reports: no new complaints and feels better Interval history: Patient seen and examined. No significant events. His right lower extremity has been wrapped and dressed. He states that his right lower extremity feel significantly better. He is anxious to be discharged. Physical Exam Vital Signs: Vital Signs: Last Vital Signs Temp 97.2 F 03/12/21 11:10 Pulse 61 03/12/21 11:10 Resp 18 03/12/21 11:10 BP 113/63 03/12/21 11:10 Pulse Ox 98 03/12/21 11:10 Body Mass Index 25.5 Const: General: cooperative, healthy appearing and no acute distress Orientation/consciousness: oriented to person, oriented to place and oriented to time HENMT: Head: Yes normal to inspection Neck: Carotids: no bruits Chest: Chest palpation & inspection: normal inspection of the chest Resp: Effort & Inspection: normal respiratory effort and able to speak in complete sentences Auscultation: clear to auscultation bilaterally Cardio: Rate: regular rate Heart sounds: S1 normal heart sound present and S2 normal heart sound present GI: Inspection: Yes normal to inspection Skin: General skin exam: no rashes or lesions noted Wounds: wounds noted (Right lower extremity excoriated sloughing skin) Neuro: General: oriented to person, oriented to place, oriented to time and CN's II-XI intact bilaterally Extrem: Other: +2 edema right greater than left General: Yes normal to inspection, Yes full ROM and Yes no clubbing, cyanosis or edema Psych: Appearance: grossly normal and well kempt Speech and movement: Normal speech and movement present Affect: normal affect Progress Note: A&P Assessment and plan (1) Varicose veins of right lower extremity with inflammation: Status: Acute Assessment and Plan: I have reviewed his venous insufficiency testing along with CT scan. He is positive for venous reflux in needs to be treated as an outpatient. I have discussed these findings with him and gave him my business card to follow up with us for great saphenous vein ablation. I do believe this will provide a significant amount relief for the right lower extremity. In terms of the CT scan no significant findings no drainable collection. From my perspective he is stable for discharge. He will follow up with us as an outpatient. Thank you for allowing us to assist in his care. If there are any questions or concerns please do not hesitate to contact us. Fall Risk Details Current Medications: Current Medications Generic Name Dose Route Start Last Admin Trade Name Freq PRN Reason Stop Dose Admin Heparin Sodium (Porcine) 5,000 unit 03/10/21 01:45 03/12/21 08:56 Heparin Sodium,Porcine 5,000 Unit/Ml Vial SUBCUT 5,000 unit Q8H DAVID Administration Melatonin 6 mg 03/10/21 01:37 Melatonin 3 Mg Tablet PO BEDTIME PRN Insomnia Methadone HCl 60 mg 03/10/21 09:00 03/12/21 08:55 Methadone Hcl 1 Mg/0.1 Ml Oral.Conc PO 60 mg DAILY DAVID Administration Oxycodone HCl 5 mg 03/10/21 01:37 03/10/21 04:36 Oxycodone Hcl Immed Release 5 Mg Tablet PO 5 mg Q6H PRN Administration Pain, Severe (Pain Scale 7-10) Pharmacy Consult 1 each 03/10/21 00:01 Consult Rx Perform Med Rec MISCELLANE ONCE PRN Consult order Pharmacy Consult 1 each 03/10/21 01:37 Consult Rx Vancomycin Dosing MISCELLANE DAILY PRN Consult order Senna 17.2 mg 03/10/21 01:37 Sennosides 8.6 Mg Tablet PO BEDTIME PRN Constipation Sodium Chloride 3 ml 03/10/21 08:00 03/12/21 08:55 0.9 % Sodium Chloride Flush 3 Ml Syringe IVFLUSH 3 ml QSHIFT DAVID Administration Time Spent With Patient Time: Total time spent is greater than 50% in coordination of care (as documented) at patient's floor/unit and/or counseling patient: Time with patient: 15 - 24 minutes Procedures Date of Service Date of Service: 03/12/21 Quality Stroke Does the patient have a stroke diagnosis?: No VTE Prior VTE?: No VTE Risk Level:: Medical - moderate - high VTE Device Contraindication: Treatment Not Indicated VTE Drug Contraindication: N/A - Med Ordered
--- NOTE | 2021-03-12 11:24 | PM.DS ---
DS: Providers Provider Date of Service: 03/12/21 Date of admission: 03/10/21 01:37 Primary care physician: Brandee Grey MD Consults: 03/10/21 01:37 Consult to Infectious Diseases Routine Consulting Provider: Muna Monreal Reason for consultation: RLE cellulitis/Ulcers Consult to Vascular Surgery Routine Consulting Provider: Bassem Birmingham Reason for consultation: chronic RLE venous stasis/ulcers DS: Diagnosis Discharge Diagnosis (1) Varicose veins of right lower extremity with inflammation: Status: Acute DS: Medications Discharge Medications Home Medications: Home Medications Medication Instructions Recorded Confirmed methadone 10 mg/mL oral 60 mg PO DAILY 02/09/21 03/10/21 concentrate (Methadone Intensol) DS: Summary Hospital Course Hospital Course: Final discharge diagnosis 1. Chronic venous stasis ulcers and venous insufficiency 2. Cellulitis ruled out 3. Chronic opiate dependence Patient presented to the hospital with his chronic right lower extremity issues and was initially treated with IV antibiotics for what was felt to be mild superimposed cellulitis. He was evaluated by vascular surgery who recommended outpatient follow-up in their clinic. Infectious Disease also saw him and recommended discontinuation of antibiotics as his issues were mostly chronic without any acute infection. Patient was evaluated by Physical therapy who recommended short-term rehab. However, due to the lack of unavailability of accepting rehab places the patient instead decided to go home with services. Patient should have dressing changes as follows: Vaseline gauze, Kerlix wrap, and 4 in Abram wrap from foot to below-knee. He should also f/u with the wound care clinic. Time Spent with Patient Time attestation: Total time spent providing and/or coordinating discharge services: Discharge coordination time: Greater than 30 minutes Quality: Stroke Does the patient have a stroke diagnosis?: No Physical Exam Vital Signs: Vital Signs: Last Vital Signs Temp 97.2 F 03/12/21 11:10 Pulse 61 03/12/21 11:10 Resp 18 03/12/21 11:10 BP 113/63 03/12/21 11:10 Pulse Ox 98 03/12/21 11:10 Body Mass Index 25.5 Const: Other: General - no acute distress, appears comfortable Cardiovascular - regular rate and rhythm, S1-S2 Lungs - normal respiratory effort, clear to auscultation bilaterally, no wheezing Abdomen - soft, nontender, no rebound or guarding Extremities - RLE in dressing Neuro - awake and alert, no focal deficits DS: Data Data Completed and Pending Completed studies during hospitalization [Text1]: Procedures Detoxification Services for Substance Abuse Treatment (11/28/20) Labs on day of discharge: Preliminary micro results at discharge 03/10/21 00:27 Blood Culture - Preliminary Blood - Venous No growth after 48 hours. 03/10/21 00:27 Blood Culture - Preliminary Blood - Venous No growth after 48 hours. Discharge Plan Discharge Patient Disposition: Home Health Service Discharge Diagnosis: Chronic Venous statsis ulcers Referrals: [facility] [place] Wound Care Management [Provider Group] - 1 Week Bassem Birmingham MD [Physician] - 1 Week Brandee Grey MD [Primary Care Provider] - 1 Week Discharge Medications: Continued methadone [Methadone Intensol] 10 mg/mL Concentrate 60 mg PO DAILY RF: 0 Discharge Orders: Discharge Order (Routine); Ordered 03/12/21 Ordered By: Reyes Hoffmann Diet: advance to usual diet Activity on Discharge: As tolerated Stand Alone Forms: Patient Portal Discharge page Care Plan Goals: To stay healthy and out of the hospital. Health Concerns: Vericose veins and chornic changes Plan of Treatment: Follow up with vascular surgery and wound care Assessment: 65 yo M admitted for chronic venous ulcerations with minor super-imposed cellulitis. Will need outpatient f/u with wound care clinic and vascular surgery.
--- NOTE | 2021-03-12 11:33 | W.MHC.F2F ---
Service Date Service Date: 03/12/21 Encounter Date of encounter: 03/12/21 Encounter: wound care Reasons for Services Reason for half-way: wound care (Vaseline gauze, Kerlix wrap, and 4 in Abram wrap from foot to below-knee.) Overseeing Care: Brandee Grey Homebound: Leaving the home is medically contraindicated at this time without the asist of a device and/or another person due th the listed conditions above and below. Certification: Based on the above findings, I certify that this patient is confined to the home and needs intermittent half-way care, physical therapy and/or speech therapy, or continues to need occupational therapy. The patient is under my care, and I have initiated the establishment of the plan of care. The patient will be followed by a physician who will periodically review the plan of care.
--- NOTE | 2021-03-12 11:33 | MHC.CM.PN ---
PATIENT IS DC TODAY HE IS AWARE THAT [facility] HAS NO BED TO OFFER TODAY AND HE CHOOSES TO RETURN HOME PATIENT CHOOSES [facility] FOR SERVICES, HE BELIEVES THEY ADMINISTER METHADONE TREATMENT. REFERRAL PLACED TO INQUIRE.
--- NOTE | 2021-03-12 13:54 | MHC.CM.PN ---
PATIENT IS DISCHARGE HOME [facility]IA [facility] WILL OFFER WOUND CARE TEACHING AND MED MAINTENANCE. RN AWARE OF PLAN.
== END 2021-03-12 14:39 | disposition home health service (06) | DRG 197 ==
LOC: HO.ED 03-10 01:10 → HO.EDOVER 03-10 02:19 → HO.IMC 03-10 02:46 → HO.S3 03-11 18:01
PROVIDERS: Physician Assistant; Admitting Provider Hospitalist; Emergency Provider Internal Medicine; PCP Family Medicine; Visit Provider Family Medicine
DX: I87.311 Chronic venous hypertension (idiopathic) with ulcer of right lower extremity (principal); F11.20 Opioid dependence, uncomplicated; L97.819 Non-pressure chronic ulcer of other part of right lower leg with unspecified severity; F17.210 Nicotine dependence, cigarettes, uncomplicated; Z71.6 Tobacco abuse counseling; Z86.19 Personal history of other infectious and parasitic diseases; Z20.822 Contact with and (suspected) exposure to COVID-19
CPT/HCPCS: 36415; 73700; 80048; 80053; 83605; 83735; 84145; 85025; 85027; 87040; 87635; 97110; 97162; 97530; 99218; 99285; J2543; J3370

== ENCOUNTER 2021-04-05 10:32 | Outpatient (RCR) | payer MEDICAID, SELFPAY | END 2021-05-18 07:28 | disposition home or self-care (01) | LOC: HO.WCC 10:32 | PROVIDERS: PCP Family Medicine; Visit Provider Physician Assistant | DX: I87.331 Chronic venous hypertension (idiopathic) with ulcer and inflammation of right lower extremity (principal); L97.812 Non-pressure chronic ulcer of other part of right lower leg with fat layer exposed; G62.9 Polyneuropathy, unspecified; K74.60 Unspecified cirrhosis of liver; I10 Essential (primary) hypertension; F11.20 Opioid dependence, uncomplicated; F17.210 Nicotine dependence, cigarettes, uncomplicated; Z86.19 Personal history of other infectious and parasitic diseases | CPT/HCPCS: 11042; 11045 ==

== ENCOUNTER 2021-05-18 22:38 | Inpatient (IN) | payer MEDICAID, SELFPAY ==
[2021-05-18 23:19] VITALS: BP 124/56; PULSE 82; RESP 18; TEMP 36.9; O2SAT 96; BMI 27.1
[2021-05-19 00:08] VITALS: BP 126/52; PULSE 76; RESP 18; O2SAT 95
[2021-05-19] MEDS: 0.9 % Sodium Chloride 1,000 ML 999 ML IV (01:25)
[2021-05-19 01:28] LABS: Basophils Absolute Auto 0.1 X10*3/uL (0.0-0.2); Basophils Percent Auto 0.6 % (0-2); Eosinophils Absolute Auto 0.5 X10*3/uL (0.0-0.4); Eosinophils Percent Auto 4.3 % (0-4); Hematocrit 26.1 % (42-52); Hemoglobin 8.3 g/dl (14.0-18.0); Imm Gran Abs Auto 0.06 X10*3/uL (0.00-0.03); Imm Gran Pct Auto 0.6 % (0.0-0.4); Lymphocytes Absolute Auto 1.4 X10*3/uL (1.2-4.9); Lymphocytes Percent Auto 13.4 % (20-40); MANUAL DIFF FLAG NO; Mean Corpuscular HGB Conc 31.8 g/dl (31.0-36.0); Mean Corpuscular Hemoglobin 25.5 pg (27.0-33.0); Mean Corpuscular Volume 80.1 fL (80-98); Mean Platelet Volume 9.4 fL (9.4-12.4); Monocytes Absolute Auto 1.1 X10*3/uL (0.1-1.2); Monocytes Percent Auto 10.3 % (2-11); Neutrophils Absolute Auto 7.4 X10*3/uL (2.0-8.3); Neutrophils Percent Auto 70.8 % (45-73); Platelet Count 185 X10*3/uL (160-400); Red Blood Count 3.26 X10*6/uL (4.60-5.80); White Blood Count 10.5 X10*3/uL (4.8-10.8)
[2021-05-19] MEDS: Piperacillin Sodium/Tazobactam 4.5 GM in 0.9 % Sodium Chloride 100 ML IV (01:28)
[2021-05-19 01:37] LABS: COVID-19 Test Positive (Negative); IDNOW Serial# 9DD0AD1C
[2021-05-19 01:38] LABS: Lactic Acid 1.4 mmol/L (0.5-2.0)
[2021-05-19 02:04] LABS: Alanine Aminotransferase 14 U/L (0-40); Albumin Level 2.4 g/dL (3.5-5.0); Alkaline Phosphatase 129 U/L (39-117); Anion Gap 9 (12-20); Aspartate Amino Transferase 35 U/L (5-37); Bilirubin Total 0.5 mg/dL (0.0-1.0); Blood Urea Nitrogen 19 mg/dL (9-16); Calcium 8.2 mg/dL (8.4-10.2); Carbon Dioxide 25 mmol/L (22-29); Chloride 106 mmol/L (96-108); Creatinine Clr Calc Pharmacy 79.4; Estimated Glomerular Filt Rate > 60; Glucose Random 102 mg/dL (60-115); Lipase 28 U/L (8-78); Potassium 3.9 mmol/L (3.3-5.1); Sodium 136 mmol/L (135-145); Total Protein 7.5 g/dL (6.5-8.0)
--- NOTE | 2021-05-19 02:22 | ED.SKABFB ---
HPI - Skin/Abscess/Foreign Bdy General Chief complaint: Skin/Abscess/Foreign Body Stated complaint: leg infection Time Seen by Provider: 05/19/21 00:05 Source: patient Mode of arrival: ambulatory Limitations: no limitations History of Present Illness HPI narrative: 65-year-old male who presents emergency department for evaluation of infection of his right lower extremity. The patient has a chronic nonhealing wounds secondary to chronic venous stasis. The patient is in wound care and has a visiting nurse. The visiting nurse was concerned that the patient's leg was more red and swollen and that the discharge was more significant advised the patient to go to the emergency department for evaluation for possible infection. The patient states that there is increased redness from his knee down which is warm to the touch. He also states that he has noticed increased yellow discharge from the lower half of the leg where he has the chronic ulcers. The patient states that he tested positive for COVID-19 2 weeks prior. He denied fever, chills, chest pain, shortness of breath, nausea, vomiting, abdominal pain or diarrhea. In reviewing the patient's records, he was admitted on 03/12/2021 for right lower extremity cellulitis, received 1 day of IV antibiotics and was discharged home without antibiotics. The patient was seen on 02/12/2021 for cellulitis of the right lower extremity, he was treated with IV antibiotics and discharged on a 10 day course of doxycycline Related Data Home Medications Medication Instructions Recorded Confirmed methadone 10 mg/mL oral 60 mg PO DAILY 02/09/21 03/10/21 concentrate (Methadone Intensol) Allergies Allergy/AdvReac Type Severity Reaction Status Date / Time trazodone [TRAZODONE] Allergy Intermediate RESTLESS Verified 03/10/21 00:45 LEGS Review of Systems Review of Systems: Yes all other systems are reviewed and are negative PMFSH Past Medical History PMFSH Narrative: Social history: The patient does smoke 2-3 cigarettes per day. He states that he has not drank alcohol in over 35 years. Patient continues to use heroin and cocaine despite being in a methadone program. He states that today he injected 2 bags of heroin and 1 bag of cocaine. Medical History Anemia Cellulitis Chronic cutaneous venous stasis ulcer Cirrhosis Depression Hepatitis C Infected wound Opioid use disorder Opioid use disorder Polysubstance abuse Tobacco dependence Varicose veins of right lower extremity with inflammation Venous stasis ulcer Surgical History H/O hernia repair Family History Family History Mother CAD (coronary artery disease) ESRD (end stage renal disease) Brother Liver failure Social History Social History Household Members: Other Household Members Other:: Currently residing in a rehab facility Housing: Other Housing Other:: Currently residing in a rehab facility Do you presently have visiting nurse or other home services: No Alcohol intake: never Patient Tobacco Use Status: Current everyday Tobacco user Tobacco use type: Cigarette Cigarettes Per Day: 2 Years Smoked: 40 e-Cigarette/Vaping Use: Never Used Second Hand Smoke Exposure: Yes Substance Use Type: Crack/Cocaine and Heroin Advance Directives: No Advance Directives Information Provided: No service: No Current occupational status: unemployed and disabled Physical Exam Vital Signs: Vital Signs: Last Vital Signs Temp 98.4 F 05/18/21 23:19 Pulse 76 05/19/21 00:08 Resp 18 05/19/21 00:08 BP 126/52 L 05/19/21 00:08 Pulse Ox 95 05/19/21 00:08 Body Mass Index 27.1 Const: General: cooperative and no acute distress Orientation/consciousness: oriented to person and oriented to place Limitations: no limitations HENMT: Head: Yes normal to inspection, Yes normocephalic and Yes atraumatic Ears: external ears normal General nose exam: Normal external nose present Face and sinus: Yes normal facial exam Mouth: Normal oral and palatal mucosa present Throat: Yes posterior oropharynx normal Eyes: General: appearance normal, both eyes and all related structures Pupils: Equal, round and reactive pupils present Neck: Neck: Yes normal visual inspection, Yes no lymphadenopathy, Yes trachea midline and Yes supple Chest: Chest palpation & inspection: normal inspection of the chest and normal palpation of entire chest wall Resp: Effort & Inspection: normal respiratory effort and able to speak in complete sentences Auscultation: clear to auscultation bilaterally Cardio: Rate: regular rate Rhythm: regular rhythm Heart sounds: S1 normal heart sound present, S2 normal heart sound present and no murmurs GI: Inspection: Yes normal to inspection Palpation (GI): Soft to palpation, nontender and no guarding Auscultation: normal bowel sounds : General: Yes no CVA tenderness Back/Spine/Pelvis: Back: no CVA tenderness Skin: General skin exam: no rashes or lesions noted Neuro: General: oriented to person and oriented to place Cranial nerves: Yes CN's II-XII intact bilaterally and Yes Equal, round and reactive pupils present Cognition (Neuro): normal cognition Motor exam (neuro): 5/5 motor strength present throughout Extrem: Other: The patient has erythema and increased warmth from his knee to approximately 10 cm down his leg, this area also appears to be indurated and slightly edematous. The patient has multiple chronic nonhealing ulcers to his calf area beneath the swollen area above. There is a yellowish discharge coming from the open areas. ED bed 5 Geri Johns, Psych: Appearance: grossly normal Speech and movement: Normal speech and movement present Affect: normal affect Attitude: cooperative Thought process: Normal thought process present Thought content: Normal thought content present Course Course Course Narrative: 65-year-old male with chronic nonhealing wounds to his right lower extremity secondary to venous insufficiency who presents with increased erythema and swelling of his right lower extremity with increased discharge from the nonhealing ulcers. The patient was COVID-19 positive 2 weeks prior but he believes that he has recovered from this at this time. Patient was seen today by his visiting nurse and sent to the emergency department since the visiting nurse was concerned that the wounds were infected again. Patient's physical examination is concerning for increased erythema increased swelling of his right lower extremity. I did order a CBC, CMP, blood cultures x2, lactate and a COVID-19 test on the patient. 0233: Patient's WBC count was normal 10,500. The patient is anemic with an H&H of 8.3 and 26.1, this is lower than the patient's baseline of 10.3 and 32.4 from 03/11/2021. Patient's comprehensive metabolic panel did reveal an elevated alk-phos of 124. Patient's lactic acid was not elevated. Patient's COVID-19 test was positive however this may be residual from his recent infection. The patient will be placed in isolation. Patient was treated with Zosyn 4.5 mg IV and vancomycin 1000 mg IV. I will discuss the patient's presentation with the covering hospitalist. 0242: The patient was presented to the covering hospitalist, Dr. Blas, and the patient will be admitted for further treatment. MDM - Skin/Abscess/Foreign Bdy Lab Data Result diagrams: 05/19/21 01:05/19/21 01:22 Labs: Lab Results 05/19/21 05/19/21 05/19/21 Range/Units : 01:22 01:22 WBC 10.5 (4.8-10.8) X10*3/uL RBC 3.26 L (4.60-5.80) X10*6/uL Hgb 8.3 L (14.0-18.0) g/dl Hct 26.1 L (42-52) % MCV 80.1 (80-98) fL MCH 25.5 L (27.0-33.0) pg MCHC 31.8 (31.0-36.0) g/dl RDW 18.0 H (11.0-16.0) % Plt Count 185 D (160-400) X10*3/uL MPV 9.4 (9.4-12.4) fL Immature Gran % (Auto) 0.6 H (0.0-0.4) % Neut % (Auto) 70.8 (45-73) % Lymph % (Auto) 13.4 L (20-40) % Traill % (Auto) 10.3 (2-11) % Eos % (Auto) 4.3 H (0-4) % Baso % (Auto) 0.6 (0-2) % Lymph # (Auto) 1.4 (1.2-4.9) X10*3/uL Traill # (Auto) 1.1 (0.1-1.2) X10*3/uL Eos # (Auto) 0.5 H (0.0-0.4) X10*3/uL Baso # (Auto) 0.1 (0.0-0.2) X10*3/uL Abs Immat Gran (auto) 0.06 H (0.00-0.03) X10*3/uL Absolute Neuts (auto) 7.4 (2.0-8.3) X10*3/uL Absolute Nucleated RBC 0.000 (0.0-0.012) X10*3/uL Nucleated RBC % (auto) 0.0 (0.0-0.2) /100WBC Sodium 136 (135-145) mmol/L Potassium 3.9 (3.3-5.1) mmol/L Chloride 106 (96-108) mmol/L Carbon Dioxide 25 (22-29) mmol/L Anion Gap 9 L (12-20) BUN 19 H (9-16) mg/dL Creatinine 0.97 (0.5-1.4) mg/dL Estim Creat Clear Calc 79.4 Estimated GFR > 60 Random Glucose 102 (60-115) mg/dL Lactic Acid 1.4 (0.5-2.0) mmol/L Calcium 8.2 L (8.4-10.2) mg/dL Total Bilirubin 0.5 (0.0-1.0) mg/dL AST 35 (5-37) U/L ALT 14 (0-40) U/L Alkaline Phosphatase 129 H (39-117) U/L Total Protein 7.5 (6.5-8.0) g/dL Albumin 2.4 L D (3.5-5.0) g/dL Lipase 28 (8-78) U/L COVID-19 (JACQUE) (Negative) COVID-19 Clin Com 05/19/21 Range/Units 01:22 WBC (4.8-10.8) X10*3/uL RBC (4.60-5.80) X10*6/uL Hgb (14.0-18.0) g/dl Hct (42-52) % MCV (80-98) fL MCH (27.0-33.0) pg MCHC (31.0-36.0) g/dl RDW (11.0-16.0) % Plt Count (160-400) X10*3/uL MPV (9.4-12.4) fL Immature Gran % (Auto) (0.0-0.4) % Neut % (Auto) (45-73) % Lymph % (Auto) (20-40) % Traill % (Auto) (2-11) % Eos % (Auto) (0-4) % Baso % (Auto) (0-2) % Lymph # (Auto) (1.2-4.9) X10*3/uL Traill # (Auto) (0.1-1.2) X10*3/uL Eos # (Auto) (0.0-0.4) X10*3/uL Baso # (Auto) (0.0-0.2) X10*3/uL Abs Immat Gran (auto) (0.00-0.03) X10*3/uL Absolute Neuts (auto) (2.0-8.3) X10*3/uL Absolute Nucleated RBC (0.0-0.012) X10*3/uL Nucleated RBC % (auto) (0.0-0.2) /100WBC Sodium (135-145) mmol/L Potassium (3.3-5.1) mmol/L Chloride (96-108) mmol/L Carbon Dioxide (22-29) mmol/L Anion Gap (12-20) BUN (9-16) mg/dL Creatinine (0.5-1.4) mg/dL Estim Creat Clear Calc Estimated GFR Random Glucose (60-115) mg/dL Lactic Acid (0.5-2.0) mmol/L Calcium (8.4-10.2) mg/dL Total Bilirubin (0.0-1.0) mg/dL AST (5-37) U/L ALT (0-40) U/L Alkaline Phosphatase (39-117) U/L Total Protein (6.5-8.0) g/dL Albumin (3.5-5.0) g/dL Lipase (8-78) U/L COVID-19 (JACQUE) Positive A (Negative) COVID-19 Clin Com See Note Discharge Plan Discharge Prescriptions: No Action methadone [Methadone Intensol] 10 mg/mL Concentrate 60 mg PO DAILY RF: 0
--- NOTE | 2021-05-19 02:28 | PC.NURSE ---
PT REPORTS HE WAS COVID POSITIVE 2 WEEKS AGO, WHEN HE WAS AT [facility]. PT REQUESTED AND WAS GIVEN SAMDWICH AND SODA.
--- NOTE | 2021-05-19 02:45 | PM.IMHP ---
History of Present Illness Date of Service: 05/19/21 Chief Complaint: Right lower extremity ulcer/redness/swelling/discharge 65-year-old male with a past medical history of opiate dependence on methadone, will hepatitis-C, liver cirrhosis, anemia, history of chronic right lower extremity venous stasis ulcers/frequent admissions for recurrent cellulitis of the venous stasis ulcers the right lower extremity, presented to the hospital today with a chief complaint of increased pain redness and discharge of the right lower extremity. Patient mentioned that he has visiting nurses who came to see him for regular dressings and noted to have increased discharge, redness, suggested him to go to the ER for further evaluation. Patient denies any fever chills cough. Denies any numbness tingling. Denies any nausea vomiting diarrhea. Review of all other systems is negative except mentioned above ER course: Per ER team patient noted a right lower extremity ulcers with pus-like discharge on the dressing at presentation; also ulcers herself since healing; but noted increased redness just below the knee extending to the ulcers; CT scan showed cellulitis; given IV vancomycin and Zosyn. Admitted to the hospital for further [facility] Medical History (Updated 05/19/21 @ 02:46 by Raudel Blas MD) Anemia Cellulitis Chronic cutaneous venous stasis ulcer Cirrhosis Depression Hepatitis C Infected wound Opioid use disorder Opioid use disorder Polysubstance abuse Tobacco dependence Varicose veins of right lower extremity with inflammation Venous stasis ulcer Family History Mother CAD (coronary artery disease) ESRD (end stage renal disease) Brother Liver failure Pertinent family history: As above Surgical History H/O hernia repair Social History Household Members: Other Household Members Other:: Currently residing in a rehab facility Housing: Other Housing Other:: Currently residing in a rehab facility Do you presently have visiting nurse or other home services: No Alcohol intake: never Patient Tobacco Use Status: Current everyday Tobacco user Tobacco use type: Cigarette Cigarettes Per Day: 2 Years Smoked: 40 e-Cigarette/Vaping Use: Never Used Second Hand Smoke Exposure: Yes Substance Use Type: Crack/Cocaine and Heroin Advance Directives: No Advance Directives Information Provided: No service: No Current occupational status: unemployed and disabled Meds Allergies Allergy/AdvReac Type Severity Reaction Status Date / Time trazodone [TRAZODONE] Allergy Intermediate RESTLESS Verified 03/10/21 00:45 LEGS Active Medications: Current Medications Vancomycin HCl 1,000 mg/ (Sodium Chloride) 270 mls @ 270 mls/hr IV Q12H DAVID Piperacillin Sod/Tazobactam (Sod 3.375 gm/ Sodium Chloride) 50 mls @ 100 mls/hr IV Q6H DAVID Pharmacy Consult (Consult Rx Vancomycin Dosing) 1 each MISCELLANE DAILY PRN PRN Reason: Consult order Pharmacy Consult (Consult Rx Vancomycin Dosing) 1 each MISCELLANE DAILY PRN PRN Reason: Consult order Home Medications Medication Instructions Recorded Confirmed Last Taken Type methadone 10 mg/mL oral 60 mg PO DAILY 02/09/21 03/10/21 03/09/21 History concentrate (Methadone Intensol) Physical Exam Vital Signs and Narrative: Vital Signs: Last Vital Signs Temp 98.4 F 05/18/21 23:19 Pulse 76 05/19/21 00:08 Resp 18 05/19/21 00:08 BP 126/52 L 05/19/21 00:08 Pulse Ox 95 05/19/21 00:08 Body Mass Index 27.1 Results Labs CBC and Chem 7: 05/19/21 01:22 05/19/21 01:22 Labs: Laboratory Results - last 24 hr 05/19/21 05/19/21 05/19/21 01:22 01:22 01:22 MCV 80.1 MCH 25.5 L MCHC 31.8 RDW 18.0 H Plt Count 185 D MPV 9.4 Immature Gran % (Auto) 0.6 H Neut % (Auto) 70.8 Lymph % (Auto) 13.4 L Chambers % (Auto) 10.3 Eos % (Auto) 4.3 H Baso % (Auto) 0.6 Lymph # (Auto) 1.4 Chambers # (Auto) 1.1 Eos # (Auto) 0.5 H Baso # (Auto) 0.1 Abs Immat Gran (auto) 0.06 H Absolute Neuts (auto) 7.4 Absolute Nucleated RBC 0.000 Nucleated RBC % (auto) 0.0 Anion Gap 9 L Estim Creat Clear Calc 79.4 Estimated GFR > 60 Random Glucose 102 Lactic Acid 1.4 Calcium 8.2 L Total Bilirubin 0.5 AST 35 ALT 14 Alkaline Phosphatase 129 H Total Protein 7.5 Albumin 2.4 L D Lipase 28 COVID-19 (JACQUE) COVID-19 Clin Com 05/19/21 01:22 MCV MCH MCHC RDW Plt Count MPV Immature Gran % (Auto) Neut % (Auto) Lymph % (Auto) Chambers % (Auto) Eos % (Auto) Baso % (Auto) Lymph # (Auto) Chambers # (Auto) Eos # (Auto) Baso # (Auto) Abs Immat Gran (auto) Absolute Neuts (auto) Absolute Nucleated RBC Nucleated RBC % (auto) Anion Gap Estim Creat Clear Calc Estimated GFR Random Glucose Lactic Acid Calcium Total Bilirubin AST ALT Alkaline Phosphatase Total Protein Albumin Lipase COVID-19 (JACQUE) Positive A COVID-19 Clin Com See Note Assessment and Plan (1) Cellulitis: Qualifiers: Laterality: right Site of cellulitis: extremity Site of cellulitis of extremity: lower extremity Qualified Code(s): L03.115 - Cellulitis of right lower limb Status: Acute (2) Venous stasis ulcer: Qualifiers: Laterality: right Non-pressure ulcer stage: with fat layer exposed Varicose vein presence: without varicose veins Venous stasis ulcer site: other part of lower leg Qualified Code(s): I87.2 - Venous insufficiency (chronic) (peripheral); L97.812 - Non-pressure chronic ulcer of other part of right lower leg with fat layer exposed Status: Acute (3) 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: Status: Acute (4) Opioid use disorder: Status: Acute 65-year-old male with a past medical history of opiate dependence on methadone, will hepatitis-C, liver cirrhosis, anemia, history of chronic right lower extremity venous stasis ulcers/frequent admissions for recurrent cellulitis of the venous stasis ulcers the right lower extremity, presented to the hospital today with a chief complaint of increased pain redness and discharge of the right lower extremity. Noted to have recurrent right lower extremity venous stasis ulcer/cellulitis. Admitted for further management. Recurrent right lower extremity cellulitis/chronic venous stasis ulcers: Continue IV vancomycin and Zosyn. Will consult ID for further recommendations Will also consult vascular surgery given recurrent presentations. COVID-19 positive: Patient was recently positive for COVID-19 2 weeks ago; repeat test today came back positive. Denies any respiratory symptoms. Saturating 95% on room air. Isolation precautions History of opiate dependence: Patient on methadone. Addiction Medicine consult. DVT prophylaxis: Subcu heparin Code status: Full code Quality Stroke Does the patient have a stroke diagnosis?: No VTE Prior VTE?: No VTE Risk Level:: Medical - moderate - high VTE Device Contraindication: Treatment Not Indicated VTE Drug Contraindication: N/A - Med Ordered
[2021-05-19] MEDS: vancomycin HCL 1,000 MG in 0.9 % Sodium Chloride 250 ML 270 MG IV ×2 (03:00→14:39)
--- NOTE | 2021-05-19 03:13 | PC.NURSE ---
hospitalist at bedside for evaluation.
[2021-05-19] MEDS: Piperacillin Sodium/Tazobactam 3.375 GM in 0.9 % Sodium Chloride 50 ML IV ×3 (05:57→18:33)
[2021-05-19] MEDS: Heparin Sodium,Porcine 5,000 UNIT/ML VIAL 5000 UNIT SUBCUT ×2 (05:57→14:40)
[2021-05-19 05:58] VITALS: BP 120/56; PULSE 67; RESP 16; TEMP 36.6
[2021-05-19 07:34] LABS: MANUAL DIFF FLAG NO
[2021-05-19 07:37] LABS: Basophils Absolute Auto 0.1 X10*3/uL (0.0-0.2); Basophils Percent Auto 0.6 % (0-2); Eosinophils Absolute Auto 0.6 X10*3/uL (0.0-0.4); Eosinophils Percent Auto 6.5 % (0-4); Hemoglobin 8.2 g/dl (14.0-18.0); Imm Gran Abs Auto 0.06 X10*3/uL (0.00-0.03); Imm Gran Pct Auto 0.6 % (0.0-0.4); Lymphocytes Absolute Auto 1.4 X10*3/uL (1.2-4.9); Lymphocytes Percent Auto 14.3 % (20-40); Mean Corpuscular HGB Conc 31.5 g/dl (31.0-36.0); Mean Corpuscular Hemoglobin 25.3 pg (27.0-33.0); Mean Corpuscular Volume 80.2 fL (80-98); Mean Platelet Volume 9.2 fL (9.4-12.4); Monocytes Absolute Auto 1.1 X10*3/uL (0.1-1.2); Monocytes Percent Auto 11.3 % (2-11); Neutrophils Absolute Auto 6.5 X10*3/uL (2.0-8.3); Neutrophils Percent Auto 66.7 % (45-73); Platelet Count 171 X10*3/uL (160-400); Red Blood Count 3.24 X10*6/uL (4.60-5.80); Red Cell Distribution Width 18.2 % (11.0-16.0); White Blood Count 9.8 X10*3/uL (4.8-10.8)
--- NOTE | 2021-05-19 08:07 | PHA.PROG ---
Admission Date/Time: May 19, 2021 02:44 Indication:SSTI Weight in k.729 kg Adjusted body weight in Kg: [place] body weight in Kg: Obesity Dosing Indication % IBW: Serum Creatinine - Last 168 Hours 05/19/21 01:22 Creatinine 0.97 Estimated CrCl and GFR - Last 168 Hours 05/19/21 01:22 Estim Creat Clear Calc 79.4 Estimated GFR > 60 Vancomycin Loading Dose: 1000mg x1 dose Current Vancomycin Dosing Regimen: 1000mg Q12H Vancomycin Monitoring using AUC goal of 400 - 600 range with trough as surrogate marker: 528 with an estimated trough of 17.2 Date and Time for next Vancomycin Level to be drawn: 05/20 @1400 Pharmacist Comments on Vancomycin Plan: Vancomycin dosing will take advantage of [employer] as a clinical decision support tool that uses Bayesian modeling to calculate individual patient's pharmacokinetic parameters and forecast the patient's drug concentration time course with the target goal AUC 24 range of 400 - 600 mg/L/hr.
[2021-05-19 08:29] LABS: Blood Urea Nitrogen 17 mg/dL (9-16); Creatinine Clr Calc Pharmacy 85.6; Estimated Glomerular Filt Rate > 60; Glucose Random 86 mg/dL (60-115)
[2021-05-19 08:41] LABS: Anion Gap 9 (12-20); Calcium 7.7 mg/dL (8.4-10.2); Carbon Dioxide 21 mmol/L (22-29); Chloride 107 mmol/L (96-108); Sodium 133 mmol/L (135-145)
[2021-05-19] MEDS: methADONE HCl 20 MG/2 ML ORAL.CONC 45 MG PO (14:39)
[2021-05-19 16:18] VITALS: BP 122/49; PULSE 65; RESP 18; TEMP 37; O2SAT 98
[2021-05-19 16:44] LABS: Amphetamine Screen Urine Not Detected (Not Detect); Barbiturates, Urine Not Detected (Not Detect); Benzodiazepines Screen Urine Not Detected (Not Detect); Cannabinoid Screen Urine Not Detected (Not Detect); Cocaine Screen Urine POSITIVE (Not Detect); Fentanyl, urine POSITIVE (Not Detect); Opiate Screen Urine POSITIVE (Not Detect); Phencyclidine Screen Urine Not Detected (Not Detect)
[2021-05-19 18:36] VITALS: BP 131/67; PULSE 66; RESP 18; TEMP 37; O2SAT 97
--- NOTE | 2021-05-19 22:33 | W.PM.IDCN ---
History of Present Illness Data of Consult Service Date: 05/19/21 Requesting physician: Derrell Granger Primary Care Provider: [facility] Reason for consult: redness LE He presents with RLE redness reported below knee to ankle He has nonhealing ulcers as well on leg per picture. He has no elevated WBC or fever. Review of Systems Review of Systems: Yes all other systems are reviewed and are negative PMFSH Past Medical History Medical History Anemia Cellulitis Chronic cutaneous venous stasis ulcer Cirrhosis Depression Hepatitis C Infected wound Opioid use disorder Opioid use disorder Polysubstance abuse Tobacco dependence Varicose veins of right lower extremity with inflammation Venous stasis ulcer Family History Family History Mother CAD (coronary artery disease) ESRD (end stage renal disease) Brother Liver failure Family history: reviewed and not pertinent Surgical History Surgical History H/O hernia repair Social History Social History Household Members: Other Household Members Other:: Currently residing in a rehab facility Housing: Other Housing Other:: Currently residing in a rehab facility Do you presently have visiting nurse or other home services: No Alcohol intake: never Patient Tobacco Use Status: Current everyday Tobacco user Tobacco use type: Cigarette Cigarettes Per Day: 2 Years Smoked: 40 e-Cigarette/Vaping Use: Never Used Second Hand Smoke Exposure: Yes Substance Use Type: Crack/Cocaine and Heroin Advance Directives: No Advance Directives Information Provided: No service: No Current occupational status: unemployed and disabled Meds Allergies Allergy/AdvReac Type Severity Reaction Status Date / Time trazodone [TRAZODONE] Allergy Intermediate RESTLESS Verified 03/10/21 00:45 LEGS Active Medications: Current Medications Acetaminophen (Acetaminophen 325 Mg Tablet) 650 mg PO Q6H PRN PRN Reason: Pain, Mild (Pain Scale 1-3) Heparin Sodium (Porcine) (Heparin Sodium,Porcine 5,000 Unit/Ml Vial) 5,000 unit SUBCUT Q8H DAVID Last Admin: 05/19/21 14:40 Dose: 5,000 unit Documented by: Piperacillin Sod/Tazobactam (Sod 3.375 gm/ Sodium Chloride) 50 mls @ 100 mls/hr IV Q6H [facility] Last Admin: 05/19/21 18:33 Dose: 100 mls/hr Documented by: Vancomycin HCl 1,000 mg/ (Sodium Chloride) 270 mls @ 270 mls/hr IV Q12H [facility] Last Infusion: 05/19/21 17:11 Dose: Infused Documented by: Melatonin (Melatonin 3 Mg Tablet) 6 mg PO BEDTIME PRN PRN Reason: Insomnia Methadone HCl (Methadone Hcl 20 Mg/2 Ml Oral.Conc) 45 mg PO DAILY [facility] Last Admin: 05/19/21 14:39 Dose: 45 mg Documented by: Oxycodone HCl (Oxycodone Hcl Immed Release 5 Mg Tablet) 5 mg PO Q6H PRN PRN Reason: Pain, Severe (Pain Scale 7-10) Pharmacy Consult (Consult Rx Vancomycin Dosing) 1 each MISCELLANE DAILY PRN PRN Reason: Consult order Pharmacy Consult (Consult Rx Vancomycin Dosing) 1 each MISCELLANE DAILY PRN PRN Reason: Consult order Senna (Sennosides 8.6 Mg Tablet) 17.2 mg PO BEDTIME PRN PRN Reason: Constipation Sodium Chloride (0.9 % Sodium Chloride Flush 3 Ml Syringe) 3 ml IVFLUSH QSHIFT [facility] Last Admin: 05/19/21 17:08 Dose: Not Given Documented by: Home Medications Medication Instructions Recorded Confirmed Last Taken Type methadone 10 mg/mL oral 45 mg PO DAILY 02/09/21 05/19/21 03/09/21 History concentrate (Methadone Intensol) Physical Exam Vital Signs: Vital Signs: Last Vital Signs Temp 98.6 F 05/19/21 18:36 Pulse 66 05/19/21 18:36 Resp 18 05/19/21 18:36 BP 131/67 05/19/21 18:36 Pulse Ox 97 05/19/21 18:36 Body Mass Index 27.1 Const: General: cooperative HENMT: Head: Yes normal to inspection Mouth: Normal oral and palatal mucosa present Eyes: General: appearance normal, both eyes and all related structures Resp: Effort & Inspection: normal respiratory effort Cardio: Rate: regular rate Rhythm: regular rhythm GI: Palpation (GI): Soft to palpation and nontender Extrem: Other: right leg some redness and chronic ulcer and venous stasis changes Results Labs CBC & Chem 7: 05/19/21 07:13 05/19/21 07:13 Labs: Short CBC 05/19/21 05/19/21 Range/Units 01:22 07:13 WBC 10.5 9.8 (4.8-10.8) X10*3/uL Hgb 8.3 L 8.2 L (14.0-18.0) g/dl Hct 26.1 L 26.0 L (42-52) % Plt Count 185 D 171 (160-400) X10*3/uL BMP 05/19/21 05/19/21 01:22 07:13 Sodium 136 133 L Potassium 3.9 4.0 Chloride 106 107 Carbon Dioxide 25 21 L BUN 19 H 17 H Creatinine 0.97 0.90 Calcium 8.2 L 7.7 L D Liver Function 05/19/21 Range/Units 01:22 Total Bilirubin 0.5 (0.0-1.0) mg/dL AST 35 (5-37) U/L ALT 14 (0-40) U/L Alkaline Phosphatase 129 H (39-117) U/L Albumin 2.4 L D (3.5-5.0) g/dL Assessment and Plan (1) Venous stasis ulcer: Qualifiers: Laterality: right Non-pressure ulcer stage: with fat layer exposed Varicose vein presence: without varicose veins Venous stasis ulcer site: other part of lower leg Qualified Code(s): I87.2 - Venous insufficiency (chronic) (peripheral); L97.812 - Non-pressure chronic ulcer of other part of right lower leg with fat layer exposed Status: Acute This looks like possible mildly superinfected venous stasis ulcer Can use Vancomycin Po Doxycycline in day or two for 10 days F/U Wound Clinic
[2021-05-20 03:03] VITALS: BP 131/60; PULSE 61; RESP 16; O2SAT 97
[2021-05-20] MEDS: vancomycin HCL 1,000 MG in 0.9 % Sodium Chloride 250 ML 270 MG IV (03:50)
[2021-05-20 07:41] VITALS: BP 129/65; PULSE 59; RESP 18; TEMP 36.8; O2SAT 96
--- NOTE | 2021-05-20 07:44 | PC.NURSE ---
RLE WOUNDS ARE SHALLOW AND DIFFUSE, CLEAR DRAINAGE, NO NECROTIC AREAS NOTED. WASHED WITH SALINE AND DRESSED ACCORDING TO PATIENT WITH 4X4 AND WRAP. ALSO AREA ON RIGHT TOES. NO PALPABLE PEDAL PULSE MANUALLY. PREPPED FOR TRANSFER TO FLOOR.
--- NOTE | 2021-05-20 07:57 | PC.NURSE ---
RN to RN with Aurelio on [facility].
[2021-05-20 08:00] VITALS: BP 149/66; PULSE 61; RESP 18; TEMP 36.6; O2SAT 98
--- NOTE | 2021-05-20 09:05 | MHC.CM.PN ---
Patient was not available by phone (no cell # nor at room extension [phone]); CM spoke with Niece/HCP/Corin (Patient is COVID (+). Patient lives alone in an apartment and he has a Methadone Clinic but Corin is unsure of the name of the Clinic. Patient uses a cane at times(or a stick) and home is the goal for dc. Patient has attended the [facility] in the past.CM has initiated and will follow for dc planning.HCP is on file and PCP is from [facility].
[2021-05-20] MEDS: methADONE HCl 20 MG/2 ML ORAL.CONC 45 MG PO (09:13)
[2021-05-20 09:31] LABS: Anion Gap 10 (12-20); Blood Urea Nitrogen 16 mg/dL (9-16); Calcium 8.5 mg/dL (8.4-10.2); Carbon Dioxide 24 mmol/L (22-29); Chloride 108 mmol/L (96-108); Estimated Glomerular Filt Rate > 60; Glucose Random 100 mg/dL (60-115); Potassium 4.5 mmol/L (3.3-5.1); Sodium 137 mmol/L (135-145)
[2021-05-20 10:24] VITALS: BMI 26.9
[2021-05-20 11:17] VITALS: BP 124/67; PULSE 56; RESP 18; TEMP 35.5; O2SAT 99
--- NOTE | 2021-05-20 13:18 | PC.NURSE ---
Ski/wound assessment completed. Patient has venous stasis ulcers to right anterior and posterior lower leg with pink/yellow wound beds. EPC cream applied to periwounds then silver alginate to wound beds covered with non woven gauze and roll gauze. Patient also has macerated toes on right foot with small ulcers on 2nd and 3rd toes. Triad applied to toes covered with non woven gauze and roll gauze. No other skin issues noted at this time. All wounds present on admission.
--- NOTE | 2021-05-20 13:37 | PM.DS ---
DS: Providers Provider Date of Service: 05/20/21 Date of admission: 05/19/21 02:44 Primary care physician: [facility] Consults: 05/19/21 02:42 Consult to Infectious Diseases Routine Consulting Provider: Muna Monreal Reason for consultation: rec cellulitis Consult to Vascular Surgery Routine Consulting Provider: Bassem Birmingham Reason for consultation: rec venous stasis ulcers/cellulitis 05/19/21 02:53 Addiction Medicine Routine Consulting Provider: Anita Moran Reason for consultation: pt on methadone DS: Diagnosis Discharge Diagnosis (1) Venous stasis ulcer: Status: Acute DS: Summary Hospital Course Hospital Course: Patient presented with with non healing ulcers and was noted to have covid incidentally, he is assymptomatic from covid. As for cellulitis there was no seposis, he has chronic venous statis and is supposed to be following with vasucular surgeon Dr. Birmingham who states that he never shows up to appointment and might benefit from laser therapy in the office. The Cellulitis looks mostly chronic, he was treated with IV Zosyn and Vancomycin and was seen by ID Dr. Monreal and is recommeded for outpatient follow up and Oral Doxycyline at this time. I stressed to him the need to follow up with Dr. Birmingham vascular surgeon who saw him in the hospital. We can also refer him to outpatient follow up. He also has issues with substance abuse and was positive for cocaine, fentanyl and other opioid and advised to stop. He will continue Methadone therapy and care team asked to see him. Time Spent with Patient Time attestation: Total time spent providing and/or coordinating discharge services: Discharge coordination time: Greater than 30 minutes Quality: Stroke Does the patient have a stroke diagnosis?: No Physical Exam Vital Signs: Vital Signs: Last Vital Signs Temp 96 F L 05/20/21 11:17 Pulse 56 05/20/21 11:17 Resp 18 05/20/21 11:17 BP 124/67 05/20/21 11:17 Pulse Ox 99 05/20/21 11:17 Body Mass Index 26.9 Const: Other: General: AO X 3, no acute distress Resp: CTA bilateral CVS: S1,S2,RRR GI: +BS, NT, no distention Skin: No rash Neuro: motor grossly intact Psych: appropriate affect DS: Data Data Completed and Pending Completed studies during hospitalization [Text1]: Procedures Detoxification Services for Substance Abuse Treatment (11/28/20) Labs on day of discharge: Laboratory Results - last 24 hr 05/19/21 05/20/21 16:21 08:35 Sodium 137 Potassium 4.5 Chloride 108 Carbon Dioxide 24 Anion Gap 10 L BUN 16 Creatinine 1.07 Estim Creat Clear Calc 72.0 Estimated GFR > 60 Random Glucose 100 Calcium 8.5 D Urine Opiates Screen POSITIVE H Urine Fentanyl Screen POSITIVE H Ur Barbiturates Screen Not Detected Ur Phencyclidine Scrn Not Detected Ur Amphetamines Screen Not Detected U Benzodiazepines Scrn Not Detected Urine Cocaine Screen POSITIVE H U Marijuana (THC) Screen Not Detected Preliminary micro results at discharge 05/19/21 01:22 Blood Culture - Preliminary Blood - Venous No growth after 24 hours. 05/19/21 01:22 Blood Culture - Preliminary Blood - Venous No growth after 24 hours. Discharge Plan Discharge Anticipated Discharge Date/Time: 05/20/21 13:56 Patient Disposition: Home Health Service Discharge Diagnosis: Venous stasis with superimpose infection Referrals: [facility] [Outside] - 1 Week [facility] [Primary Care Provider] - 1 Week Muna Monreal MD [Physician] - 3 Weeks Bassem Birmingham MD [Physician] - 2 Weeks Kianna Cao MD [Physician] - 1 Week (for wound care) Discharge Medications: New doxycycline hyclate 100 mg Tablet 100 mg PO Q12H Qty: 20 RF: 0 Continued methadone [Methadone Intensol] 10 mg/mL Concentrate 45 mg PO DAILY RF: 0 Discharge Orders: Discharge Order (Routine); Ordered 05/20/21 Ordered By: Derrell Granger Diet: advance to usual diet Activity on Discharge: As tolerated Stand Alone Forms: Patient Portal Discharge page Care Plan Goals: Full healing of ulcers Health Concerns: chronic venous stasis, chronic wound Plan of Treatment: Take Doxycyline as recommended and follow up with your Doctor in a week, Follow up with DR. Birmingham, and follow up with wound clinic You need to stay in isolation for 8 more days and 24 hours fever free despite the fact that you do not have symptoms of covid Assessment: As above Discharge Date/Time: 05/20/21 18:30
--- NOTE | 2021-05-20 14:03 | P.CONGS_ITS ---
History of Present Illness Consult details Consult date: 05/20/21 Reason for consult: wound care Narrative: 65-year-old gentleman well known to me from prior hospital visits presents for nonhealing ulcer. Of note he has a prior history significant for opiate use disorder, polysubstance abuse tobacco dependence nonhealing ulcers, hep C and liver cirrhosis now presents for evaluation of nonhealing lower extremity ulcers. They have been present for some time. Of note he had been worked up in August and was positive for Autumn venous insufficiency at that time. He now presents for follow-up. In addition he is COVID positive. Review of Systems Constitutional: Constitutional: Reports as per HPI ENT: Reports system reviewed and no additional complaints, except as documented Cardiovascular: Cardiovascular: Denies chest pain, Denies chest pain at rest and Denies chest pain with activity Respiratory: Respiratory: Denies chest congestion and Denies cough Gastrointestinal: Gastrointestinal: Reports no additional gastrointestinal complaints Musculoskeletal: Musculoskeletal: Denies abnormal gait Integumentary/Breasts: Skin/Breast: Reports pruritus and Denies wounds Neurologic: Reports system reviewed and no additional complaints, except as documented and Denies abnormal gait Psychiatric: Psychiatric: Denies no additional psychiatric complaints [facility] Past Medical History Medical History Anemia Cellulitis Chronic cutaneous venous stasis ulcer Cirrhosis Depression Hepatitis C Infected wound Opioid use disorder Opioid use disorder Polysubstance abuse Tobacco dependence Varicose veins of right lower extremity with inflammation Venous stasis ulcer Family History Family History Mother CAD (coronary artery disease) ESRD (end stage renal disease) Brother Liver failure Family history: reviewed and not pertinent Surgical History Surgical History H/O hernia repair Social History Social History Household Members: Other Household Members Other:: Currently residing in a rehab facility Housing: Other Housing Other:: Currently residing in a rehab facility Do you presently have visiting nurse or other home services: No Alcohol intake: former Patient Tobacco Use Status: Current everyday Tobacco user Tobacco use type: Cigarette Cigarettes Per Day: 2 Years Smoked: 40 e-Cigarette/Vaping Use: Never Used Second Hand Smoke Exposure: Yes Substance Use Type: Heroin service: No Current occupational status: disabled Meds Allergies Allergy/AdvReac Type Severity Reaction Status Date / Time trazodone [TRAZODONE] Allergy Intermediate RESTLESS Verified 03/10/21 00:45 LEGS Active Medications: Current Medications Acetaminophen (Acetaminophen 325 Mg Tablet) 650 mg PO Q6H PRN PRN Reason: Pain, Mild (Pain Scale 1-3) Doxycycline Hyclate (Doxycycline Hyclate 100 Mg Tablet) 100 mg PO Q12H [facility] Heparin Sodium (Porcine) (Heparin Sodium,Porcine 5,000 Unit/Ml Vial) 5,000 unit SUBCUT Q8H [facility] Last Admin: 05/20/21 06:07 Dose: Not Given Documented by: Melatonin (Melatonin 3 Mg Tablet) 6 mg PO BEDTIME PRN PRN Reason: Insomnia Methadone HCl (Methadone Hcl 20 Mg/2 Ml Oral.Conc) 45 mg PO DAILY [facility] Last Admin: 05/20/21 09:13 Dose: 45 mg Documented by: Oxycodone HCl (Oxycodone Hcl Immed Release 5 Mg Tablet) 5 mg PO Q6H PRN PRN Reason: Pain, Severe (Pain Scale 7-10) Pharmacy Consult (Consult Rx Vancomycin Dosing) 1 each MISCELLANE DAILY PRN PRN Reason: Consult order Pharmacy Consult (Consult Rx Vancomycin Dosing) 1 each MISCELLANE DAILY PRN PRN Reason: Consult order Senna (Sennosides 8.6 Mg Tablet) 17.2 mg PO BEDTIME PRN PRN Reason: Constipation Sodium Chloride (0.9 % Sodium Chloride Flush 3 Ml Syringe) 3 ml IVFLUSH QSHIFT [facility] Last Admin: 05/20/21 09:12 Dose: Not Given Documented by: Home Medications Medication Instructions Recorded Confirmed Last Taken Type methadone 10 mg/mL oral 45 mg PO DAILY 02/09/21 05/19/21 03/09/21 History concentrate (Methadone Intensol) Physical Exam Vital Signs: Vital Signs: Last Vital Signs Temp 96 F L 05/20/21 11:17 Pulse 56 05/20/21 11:17 Resp 18 05/20/21 11:17 BP 124/67 05/20/21 11:17 Pulse Ox 99 05/20/21 11:17 Body Mass Index 26.9 Const: General: cooperative, healthy appearing and comfortable Orientation/consciousness: oriented to person, oriented to place and oriented to time Neck: Carotids: no bruits Chest: Chest palpation & inspection: normal inspection of the chest and normal palpation of entire chest wall Resp: Effort & Inspection: normal respiratory effort and able to speak in complete sentences Cardio: Rate: regular rate Heart sounds: S1 normal heart sound present and S2 normal heart sound present Peripheral pulses: Peripheral pulses 2+ throughout GI: Inspection: Yes normal to inspection Skin: Other: +2 edema, large rope-like varicosities greater than 3 mm General skin exam: dry skin Wounds: wounds noted (Bilateral pretibial and calf) Neuro: General: oriented to person, oriented to place and oriented to time Extrem: General: Yes edema Right lower extremity: full ROM, normal capillary refill and edema Left lower extremity: full ROM, normal capillary refill and edema Psych: Mental Status: mental status grossly normal Results Labs Result diagrams: 05/19/21 07:13 05/20/21 08:35 Labs: Abnormal lab results 05/19/21 05/20/21 Range/Units 16:21 08:35 Anion Gap 10 L (12-20) Urine Opiates Screen POSITIVE H (Not Detect) Urine Fentanyl Screen POSITIVE H (Not Detect) Urine Cocaine Screen POSITIVE H (Not Detect) BMP 05/20/21 08:35 Sodium 137 Potassium 4.5 Chloride 108 Carbon Dioxide 24 BUN 16 Creatinine 1.07 Calcium 8.5 D All other labs normal. Assessment and Plan (1) Venous stasis ulcer: Qualifiers: Laterality: right Non-pressure ulcer stage: with fat layer exposed Varicose vein presence: without varicose veins Venous stasis ulcer site: other part of lower leg Qualified Code(s): I87.2 - Venous insufficiency (chronic) (peripheral); L97.812 - Non-pressure chronic ulcer of other part of right lower leg with fat layer exposed Status: Acute In short patient has bilateral lower extremity venous stasis ulcers. They appear to be stable at the current time. Would recommend conservative measures including wound care and compression stockings as tolerated. He can follow up with me as an outpatient for venous ablation. Would like the COVID symptoms to resolve prior to treatment. Thank you for allowing us to participate in his care. If there are any questions or concerns please do not hesitate to contact us. Procedures Date of Service Date of Service: 05/20/21
--- NOTE | 2021-05-20 14:13 | MHC.CM.PN ---
Patient has been medically cleared for dc to home today with services. HARMONY has discovered that Patient is active with [facility], who has been notified of today's dc. made aware.
[2021-05-20] MEDS: oxyCODONE HCl Immed Release 5 MG TABLET PO (15:04)
[2021-05-20] MEDS: Heparin Sodium,Porcine 5,000 UNIT/ML VIAL 5000 UNIT SUBCUT (15:04)
[2021-05-20] MEDS: 0.9 % Sodium Chloride Flush 3 ML SYRINGE IVFLUSH (15:07)
--- NOTE | 2021-05-20 15:22 | MHC.CM.PN ---
Per RN, Patient is requesting a referral to [facility]; referral has been made and MD is aware.
--- NOTE | 2021-05-20 15:25 | MHC.RECOVRN ---
T/w met with pt after consult placed to Addiction Medicine. Pt currently on methadone at [facility]. Pt reports heroin use, 1 bag, IV, when unable to secure transportation to the OT. Pt reports this is approximately twice weekly. Pt educated regarding PT1. Pt also reports cocaine use, IV. Pt does not wish to learn about other recovery supports at this time, states I need to get my leg better first. Pt would like to be transferred to [facility] for further medical treatment and revisit [facility] resources after. Pt provided with resources and t/w card if questions or concerns arise. HARMONY, RN, and Anita Moran APRN, aware.
[2021-05-20 15:29] LABS: Vancomycin Trough 18.9 mcg/mL (10.0-20.0)
--- NOTE | 2021-05-20 15:45 | MHC.CM.PN ---
[facility] has no COVID BED availability. RN & MD notified
[2021-05-20 15:57] VITALS: BP 156/70; PULSE 70; RESP 18; TEMP 36.8; O2SAT 98
== END 2021-05-20 18:30 | disposition home health service (06) | DRG 197 ==
LOC: HO.ED 05-19 00:05 → HO.EDOVER 05-19 02:58 → HO.S3 05-20 02:17 → HO.EDOVER 05-20 03:02 → HO.IMC 05-20 06:38
PROVIDERS: Admitting Provider Hospitalist; Emergency Provider Emergency Medicine Emergency Medical Services; Visit Provider Internal Medicine
DX: I87.313 Chronic venous hypertension (idiopathic) with ulcer of bilateral lower extremity (principal); U07.1 COVID-19; L03.115 Cellulitis of right lower limb; F11.20 Opioid dependence, uncomplicated; L97.812 Non-pressure chronic ulcer of other part of right lower leg with fat layer exposed; Z91.19 Patient's noncompliance with other medical treatment and regimen; F17.210 Nicotine dependence, cigarettes, uncomplicated; Z71.6 Tobacco abuse counseling; L97.829 Non-pressure chronic ulcer of other part of left lower leg with unspecified severity
CPT/HCPCS: 36415; 80048; 80053; 80202; 80307; 83605; 83690; 85025; 87040; 87635; 99219; 99284; J2543; J3370

== ENCOUNTER 2022-01-10 13:46 | Inpatient (IN) | payer MEDICARE, MEDICAID, SELFPAY ==
--- NOTE | ~2022-01-10 | XR_ITS ---
Examination: XR foot RT 2V, XR tibia fibula RT 2V Indication: Leg cellulitis. Osteomyelitis Comparison: 06/25/2020 Technique: 2 views of the right tibia and fibula with 3 additional views of the right foot Findings: Diffuse soft tissue swelling is seen about the tibia and fibula with soft tissue defects seen more so along the medial aspect of the mid to distal calf. Periosteal reaction seen within the mid to distal tibia and fibula without underlying bony destruction. Mild degenerative changes in the knee and ankle. Prominent calcaneal heel spurs at the attachment point of the Achilles tendon and plantar aponeurosis. There is diffuse soft tissue swelling about the foot with degenerative changes more so in the forefoot. No acute fracture or dislocation. No bony destructive lesions in the foot. There is an incidental tiny linear metallic foreign body in the distal soft tissues of the second toe XR/XR foot RT 2V Impression: Diffuse soft tissue swelling with a suggestion of soft tissue defects along the mid to distal calf. At this level there is periosteal reaction to the mid to distal tibia and fibula. Although I do not appreciate any underlying bony destructive lesion, the periosteal changes in this location are concerning for possible subtle osteomyelitis on this x-ray. MRI would be more definitive for subtle changes. More chronic appearing changes in the foot as described above
--- NOTE | ~2022-01-10 | XR_ITS ---
Examination: XR foot RT 2V, XR tibia fibula RT 2V Indication: Leg cellulitis. Osteomyelitis Comparison: 06/25/2020 Technique: 2 views of the right tibia and fibula with 3 additional views of the right foot Findings: Diffuse soft tissue swelling is seen about the tibia and fibula with soft tissue defects seen more so along the medial aspect of the mid to distal calf. Periosteal reaction seen within the mid to distal tibia and fibula without underlying bony destruction. Mild degenerative changes in the knee and ankle. Prominent calcaneal heel spurs at the attachment point of the Achilles tendon and plantar aponeurosis. There is diffuse soft tissue swelling about the foot with degenerative changes more so in the forefoot. No acute fracture or dislocation. No bony destructive lesions in the foot. There is an incidental tiny linear metallic foreign body in the distal soft tissues of the second toe XR/XR tibia fibula RT 2V Impression: Diffuse soft tissue swelling with a suggestion of soft tissue defects along the mid to distal calf. At this level there is periosteal reaction to the mid to distal tibia and fibula. Although I do not appreciate any underlying bony destructive lesion, the periosteal changes in this location are concerning for possible subtle osteomyelitis on this x-ray. MRI would be more definitive for subtle changes. More chronic appearing changes in the foot as described above
--- NOTE | ~2022-01-10 | MR_ITS ---
EXAMINATION: MRI RIGHT TIBIA AND FIBULA WITHOUT AND WITH CONTRAST. CLINICAL INFORMATION: Periosteal changes COMPARISON: X-ray right tibia and fibula 01/10/2022, CT 03/10/2021 x-ray 06/25/2020 TECHNIQUE: MRI in a high-field magnet without and with contrast. FINDINGS: Diffuse skin thickening with edema. There is foci of undulation, irregularity and perhaps ulceration medially at the level of the mid and distal tibia, and posterior laterally at the level of the distal tibia.. There is subcutaneous edema and/or cellulitis present.. No focal fluid collection or abscess is seen in the subcutaneous tissues. There are varicosities present in the subcutaneous tissues. The marrow signal within the tibia and fibula is within normal limits. The T1 signal is maintained. No significant T2 bright signal/edema seen. No convincing MRI evidence of osteomyelitis. There are periosteal reaction present in the tibia and fibula. These periosteal changes were seen on the prior CT 03/10/2021 and the prior x-ray. There is edema and component of fatty atrophy of the muscles of the tibia and fibula diffusely, which could be related to myositis, chronic denervation changes/sequela of diabetes. Partially imaged tendons distally appear intact. The visualized portion of the Achilles tendon appears intact. MR/MR lower leg RT wo/w con IMPRESSION: 1. Diffuse soft tissue swelling, skin thickening with perhaps areas of ulceration ulceration medially at the level of the mid to distal tibia. There is edema and/or cellulitis present. No drainable fluid collections. 2. No MRI findings to suggest definite osteomyelitis in the tibia and fibula. 3. There is periosteal reaction in the tibia and fibula. This was also seen on the prior radiographs and prior CT. This is nonspecific, can be seen in the setting of chronic venous insufficiency, chronic inflammation. 4. Findings in the muscles of the tibia and fibula diffusely, could represent myositis, sequela of chronic denervation/diabetes, or a combination of these..
[2022-01-10 14:06] VITALS: BP 153/80; PULSE 102; RESP 18; TEMP 36.8; O2SAT 96; BMI 24.0
[2022-01-10 17:27] VITALS: BP 133/60; PULSE 71; RESP 18; TEMP 36.8; O2SAT 95
--- NOTE | 2022-01-10 17:47 | ED.GENADULT ---
HPI - General Adult General Chief complaint: Skin/Abscess/Foreign Body Stated complaint: r leg infection Time Seen by Provider: 01/10/22 17:26 Source: patient Limitations: no limitations History of Present Illness HPI narrative: 66-year-old male history of IV drug abuse and chronic wounds venous insufficiency/cellulitis presents to ED for chronic right leg wound with foul odor. Patient states also having pain. Patient admits not follow-up with vascular surgery Infectious Disease or Wound Clinic since last year. Patient denies any fever, chills, chest pain, shortness of breath. Related Data Home Medications Medication Instructions Recorded Confirmed methadone 10 mg/mL oral concentrate 70 mg PO DAILY 01/10/22 Allergies Allergy/AdvReac Type Severity Reaction Status Date / Time trazodone [TRAZODONE] Allergy Intermediate RESTLESS Verified 03/10/21 00:45 LEGS Review of Systems Review of Systems: Right leg wound Yes all other systems are reviewed and are negative PMFSH Past Medical History Medical History Anemia Cellulitis Chronic cutaneous venous stasis ulcer Cirrhosis Depression Hepatitis C Infected wound Opioid use disorder Opioid use disorder Polysubstance abuse Tobacco dependence Varicose veins of right lower extremity with inflammation Venous stasis ulcer Surgical History H/O hernia repair Family History Family History Mother CAD (coronary artery disease) ESRD (end stage renal disease) Brother Liver failure Social History Social History Household Members: Other Household Members Other:: Currently residing in a rehab facility Housing: Other Housing Other:: Currently residing in a rehab facility Do you presently have visiting nurse or other home services: No Alcohol intake: never Patient Tobacco Use Status: Current someday Tobacco user Tobacco use type: Cigarette Cigarettes Per Day: 2 Years Smoked: 40 e-Cigarette/Vaping Use: Never Used Second Hand Smoke Exposure: Yes Use of substances other than those prescribed or required for medical reasons: Yes Substance Use Type: Crack/Cocaine Advance Directives: No Advance Directives Information Provided: No service: No Current occupational status: disabled Physical Exam ED Vital Signs: Vital Signs - 24 hr 01/10/22 14:06 01/10/22 17:27 01/10/22 19:33 Temperature 98.3 F 98.2 F 97.7 F Pulse Rate 102 H 71 74 Respiratory Rate 18 18 19 Blood Pressure 153/80 H 133/60 145/83 H Pulse Oximetry 96 95 97 BMI result Body Mass Index 24.0 Const General: cooperative, healthy appearing, comfortable, no acute distress, well developed, alert and awake [facility] Head: Yes normal to inspection, Yes No palpable skull fracture present, Yes normocephalic, Yes atraumatic and No abrasion Eyes General: appearance normal, both eyes and all related structures Neck Neck: Yes normal visual inspection, Yes full ROM, Yes no lymphadenopathy, Yes no meningeal signs, Yes trachea midline, Yes supple, No anterior neck swelling and No tender Chest Chest palpation & inspection: normal inspection of the chest and normal palpation of entire chest wall Resp Effort & Inspection: normal respiratory effort and able to speak in complete sentences Auscultation: clear to auscultation bilaterally Cardio Jugular venous distension: no JVD Heart sounds: S1 normal heart sound present and S2 normal heart sound present GI Inspection: Yes normal to inspection and No abdominal wall ecchymosis Palpation (GI): Soft to palpation, not firm, nontender, no guarding and not rigid General: No CVA tenderness and Yes no CVA tenderness Back/Spine/Pelvis Back: no CVA tenderness, No CVA tenderness and No back tenderness Skin Other: Right leg venous ulcers wounds General skin exam: no rashes or lesions noted and elasticity normal Neuro Other: wheel chair bound General: no meningeal signs Extrem Other: Right: wounds appear chronic, but does have foul odor. Psych Appearance: grossly normal, well kempt and not disheveled Course Course Course Narrative: Right lower extremity wound to the same on prior visits in chart but due to foul odor labs will be ordered an x-ray to rule osteomyelitis. Patient may be admission will wait for results. Reevaluation(s) Reevaluation #1: Negative elevated white blood cell count. ESR and CRP lower than usual, but x-ray shows possible osteomyelitis and tib/fib. IV vanco and Zosyn ordered. Patient presented to the hospitalist for admission. Dr. Blas agreed to admission for osteomyelitis. Time: 21:42 Medical Decision Making Lab Data Result diagrams: 01/10/22 18:11 01/10/22 18:11 Labs: Lab Results 01/10/22 01/10/22 01/10/22 Range/Units 18:11 18:11 18:11 WBC 9.8 (4.8-10.8) X10*3/uL RBC 4.14 L (4.60-5.80) X10*6/uL Hgb 10.2 L (14.0-18.0) g/dl Hct 32.8 L (42.0-52.0) % MCV 79.2 L (80.0-98.0) fL MCH 24.6 L (27.0-33.0) pg MCHC 31.1 (31.0-36.0) g/dl RDW 15.8 (11.0-16.0) % Plt Count 164 (160-400) X10*3/uL MPV 9.5 (9.4-12.4) fL Immature Gran % (Auto) 0.5 H (0.0-0.4) % Neut % (Auto) 75.8 H (45-73) % Lymph % (Auto) 12.4 L (20-40) % [place] % (Auto) 9.7 (2-11) % Eos % (Auto) 1.2 (0-4) % Baso % (Auto) 0.4 (0-2) % Lymph # (Auto) 1.2 (1.2-4.9) X10*3/uL [place] # (Auto) 1.0 (0.1-1.2) X10*3/uL Eos # (Auto) 0.1 (0.0-0.4) X10*3/uL Baso # (Auto) 0.0 (0.0-0.2) X10*3/uL Abs Immat Gran (auto) 0.05 H (0.00-0.03) X10*3/uL Absolute Neuts (auto) 7.4 (2.0-8.3) x10*3/uL Absolute Nucleated RBC 0.000 (0.0-0.012) X10*3/uL Nucleated RBC % (auto) 0.0 (0.0-0.2) /100WBC ESR 44 H (0-15) MM/HR Sodium 134 L (135-145) mmol/L Potassium 4.6 (3.3-5.1) mmol/L Chloride 104 (96-108) mmol/L Carbon Dioxide 22 (22-29) mmol/L Anion Gap 13 (12-20) BUN 22 H (9-16) mg/dL Creatinine 0.81 (0.5-1.4) mg/dL Estim Creat Clear Calc 87.9 Estimated GFR > 60 Random Glucose 72 (60-115) mg/dL Lactic Acid (0.5-2.0) mmol/L Calcium 8.6 (8.4-10.2) mg/dL Total Bilirubin 0.9 (0.0-1.0) mg/dL AST 57 H (5-37) U/L ALT 29 (0-40) U/L Alkaline Phosphatase 109 (39-117) U/L C-Reactive Protein 2.91 H (< or = 0.50) mg/dL Total Protein 8.2 H (6.5-8.0) g/dL Albumin 3.1 L D (3.5-5.0) g/dL /01/26 Range/Units 18:11 WBC (4.8-10.8) X10*3/uL RBC (4.60-5.80) X10*6/uL Hgb (14.0-18.0) g/dl Hct (42.0-52.0) % MCV (80.0-98.0) fL MCH (27.0-33.0) pg MCHC (31.0-36.0) g/dl RDW (11.0-16.0) % Plt Count (160-400) X10*3/uL MPV (9.4-12.4) fL Immature Gran % (Auto) (0.0-0.4) % Neut % (Auto) (45-73) % Lymph % (Auto) (20-40) % [place] % (Auto) (2-11) % Eos % (Auto) (0-4) % Baso % (Auto) (0-2) % Lymph # (Auto) (1.2-4.9) X10*3/uL [place] # (Auto) (0.1-1.2) X10*3/uL Eos # (Auto) (0.0-0.4) X10*3/uL Baso # (Auto) (0.0-0.2) X10*3/uL Abs Immat Gran (auto) (0.00-0.03) X10*3/uL Absolute Neuts (auto) (2.0-8.3) x10*3/uL Absolute Nucleated RBC (0.0-0.012) X10*3/uL Nucleated RBC % (auto) (0.0-0.2) /100WBC ESR (0-15) MM/HR Sodium (135-145) mmol/L Potassium (3.3-5.1) mmol/L Chloride (96-108) mmol/L Carbon Dioxide (22-29) mmol/L Anion Gap (12-20) BUN (9-16) mg/dL Creatinine (0.5-1.4) mg/dL Estim Creat Clear Calc Estimated GFR Random Glucose (60-115) mg/dL Lactic Acid 1.0 (0.5-2.0) mmol/L Calcium (8.4-10.2) mg/dL Total Bilirubin (0.0-1.0) mg/dL AST (5-37) U/L ALT (0-40) U/L Alkaline Phosphatase (39-117) U/L C-Reactive Protein (< or = 0.50) mg/dL Total Protein (6.5-8.0) g/dL Albumin (3.5-5.0) g/dL Discharge Plan Discharge Clinical Impression: Osteomyelitis Patient Disposition: Admitted As Inpatient
[2022-01-10] MEDS: 0.9 % Sodium Chloride 1,000 ML 999 ML IV (18:12)
[2022-01-10 18:19] LABS: Basophils Percent Auto 0.4 % (0-2); Eosinophils Absolute Auto 0.1 X10*3/uL (0.0-0.4); Eosinophils Percent Auto 1.2 % (0-4); Hematocrit 32.8 % (42.0-52.0); Hemoglobin 10.2 g/dl (14.0-18.0); Imm Gran Abs Auto 0.05 X10*3/uL (0.00-0.03); Imm Gran Pct Auto 0.5 % (0.0-0.4); Lymphocytes Absolute Auto 1.2 X10*3/uL (1.2-4.9); Lymphocytes Percent Auto 12.4 % (20-40); MANUAL DIFF FLAG NO; Mean Corpuscular HGB Conc 31.1 g/dl (31.0-36.0); Mean Corpuscular Hemoglobin 24.6 pg (27.0-33.0); Mean Corpuscular Volume 79.2 fL (80.0-98.0); Mean Platelet Volume 9.5 fL (9.4-12.4); Monocytes Percent Auto 9.7 % (2-11); Neutrophils Absolute Auto 7.4 x10*3/uL (2.0-8.3); Neutrophils Percent Auto 75.8 % (45-73); Platelet Count 164 X10*3/uL (160-400); Red Blood Count 4.14 X10*6/uL (4.60-5.80); Red Cell Distribution Width 15.8 % (11.0-16.0); White Blood Count 9.8 X10*3/uL (4.8-10.8)
[2022-01-10 18:39] LABS: Alanine Aminotransferase 29 U/L (0-40); Albumin Level 3.1 g/dL (3.5-5.0); Alkaline Phosphatase 109 U/L (39-117); Anion Gap 13 (12-20); Aspartate Amino Transferase 57 U/L (5-37); Bilirubin Total 0.9 mg/dL (0.0-1.0); Blood Urea Nitrogen 22 mg/dL (9-16); C Reactive Protein 2.91 mg/dL (< or = 0.50); Calcium 8.6 mg/dL (8.4-10.2); Carbon Dioxide 22 mmol/L (22-29); Chloride 104 mmol/L (96-108); Creatinine Clr Calc Pharmacy 87.9; Estimated Glomerular Filt Rate > 60; Glucose Random 72 mg/dL (60-115); Potassium 4.6 mmol/L (3.3-5.1); Sodium 134 mmol/L (135-145); Total Protein 8.2 g/dL (6.5-8.0)
[2022-01-10] MEDS: Piperacillin Sodium/Tazobactam 3.375 GM in 0.9 % Sodium Chloride 50 ML IV (19:03)
[2022-01-10 19:15] LABS: Erythrocyte Sedimentation Rate 44 MM/HR (0-15)
[2022-01-10 19:33] VITALS: BP 145/83; PULSE 74; RESP 19; TEMP 36.5; O2SAT 97
[2022-01-10] MEDS: vancomycin HCL 750 MG in 0.9 % Sodium Chloride 250 ML 265 MG IV (19:37)
--- NOTE | 2022-01-10 20:26 | PM.IMHP ---
History of Present Illness Date of Service: 01/10/22 Chief Complaint: Right leg pain/malodor 66-year-old male with a past medical history of polysubstance abuse, opiate dependence on methadone, hep C, liver cirrhosis, tobacco dependence, history of venous stasis ulcers with recurrent cellulitis; presented to the hospital today with a chief complaint of right leg pain, malodor for 3-4 days. Patient denies any discharge. Denies any falls or trauma. Mentioned that he has been using heroin-last use was the day before; also reports he is on methadone 70mg as outpatient. Patient denies any chest pain or palpitations. Denies any fevers or chills. Denies any GI symptoms. Review of all other systems is negative except mentioned above ER course: Per ER team patient noted to have foul-smelling right leg ulcers with surrounding erythema concerning for cellulitis; x-ray showed findings concerning for osteomyelitis. Patient was given IV vancomycin and Zosyn. Labs essentially benign. Admitted to the hospital for further management. [facility] Medical History Anemia Cellulitis Chronic cutaneous venous stasis ulcer Cirrhosis Depression Hepatitis C Infected wound Opioid use disorder Opioid use disorder Polysubstance abuse Tobacco dependence Varicose veins of right lower extremity with inflammation Venous stasis ulcer Family History Mother CAD (coronary artery disease) ESRD (end stage renal disease) Brother Liver failure Surgical History H/O hernia repair Social History Household Members: None Household Members Other:: Currently residing in a rehab facility Housing: Apartment Housing Other:: Currently residing in a rehab facility Do you presently have visiting nurse or other home services: No Alcohol intake: never Patient Tobacco Use Status: Never used Tobacco Tobacco use type: Cigarette Cigarettes Per Day: 2 Years Smoked: 40 Smoked in Last 30 Days: No e-Cigarette/Vaping Use: Never Used Second Hand Smoke Exposure: Yes Use of substances other than those prescribed or required for medical reasons: Yes Substance Use Type: Crack/Cocaine Last Used Substance Other:: pt states his in the methadone program but sometimes uses street drugs Currently Displaying Signs/Symptoms of Drug Intoxication Withdrawal: No Any prior treatment program specific to substance use: No Have you been hit, kicked, punched, or otherwise hurt by someone within the past year? If so, by whom?: No Do you feel safe in your current relationship?: Yes Is there a partner from a previous relationship who is making you feel unsafe now?: No Are you made to feel afraid or neglected: No Advance Directives: No Advance Directives Information Provided: No Do you have thoughts of harming others: None Do you have a plan to hurt others: No Plan Recently lost weight without trying: No Eating poorly because of decreased appetite: No Nutrition Risks: No Nutritional Risk service: No Current occupational status: disabled Meds Allergies Allergy/AdvReac Type Severity Reaction Status Date / Time trazodone [TRAZODONE] Allergy Intermediate RESTLESS Verified 03/10/21 00:45 LEGS Home Medications Medication Instructions Recorded Confirmed Last Taken Type methadone 10 mg/mL oral concentrate 70 mg PO DAILY 01/10/22 01/10/22 History Physical Exam Vital Signs and Narrative: Vital Signs: Last Vital Signs Temp 97.7 F 01/10/22 19:33 Pulse 74 01/10/22 19:33 Resp 19 01/10/22 19:33 BP 145/83 H 01/10/22 19:33 Pulse Ox 97 01/10/22 19:33 BMI result Body Mass Index 24.0 Gen: Appears be in no acute distress HEENT: NCAT, Moist mucosa. Pulmonary: Vesicular breath sounds, fair air entry CVS: Normal S1-S2 Abdomen: BS+, Soft, Nontender Extremities: Warm well perfused; noted to have stasis ulcers on the legs shown in the pictures Neuro: Alert and awake. Results Labs CBC and Chem 7: 01/10/22 18:11 01/10/22 18:11 Labs: Laboratory Results - last 24 hr 01/10/22 01/10/22 01/10/22 18:11 18:11 18:11 MCV 79.2 L MCH 24.6 L MCHC 31.1 RDW 15.8 Plt Count 164 MPV 9.5 Immature Gran % (Auto) 0.5 H Neut % (Auto) 75.8 H Lymph % (Auto) 12.4 L [place] % (Auto) 9.7 Eos % (Auto) 1.2 Baso % (Auto) 0.4 Lymph # (Auto) 1.2 [place] # (Auto) 1.0 Eos # (Auto) 0.1 Baso # (Auto) 0.0 Abs Immat Gran (auto) 0.05 H Absolute Neuts (auto) 7.4 Absolute Nucleated RBC 0.000 Nucleated RBC % (auto) 0.0 ESR 44 H Anion Gap 13 Estim Creat Clear Calc 87.9 Estimated GFR > 60 Random Glucose 72 Lactic Acid Calcium 8.6 Total Bilirubin 0.9 AST 57 H ALT 29 Alkaline Phosphatase 109 C-Reactive Protein 2.91 H Total Protein 8.2 H Albumin 3.1 L D 01/10/22 18:11 MCV MCH MCHC RDW Plt Count MPV Immature Gran % (Auto) Neut % (Auto) Lymph % (Auto) [place] % (Auto) Eos % (Auto) Baso % (Auto) Lymph # (Auto) [place] # (Auto) Eos # (Auto) Baso # (Auto) Abs Immat Gran (auto) Absolute Neuts (auto) Absolute Nucleated RBC Nucleated RBC % (auto) ESR Anion Gap Estim Creat Clear Calc Estimated GFR Random Glucose Lactic Acid 1.0 Calcium Total Bilirubin AST ALT Alkaline Phosphatase C-Reactive Protein Total Protein Albumin Imaging Radiologist's Impressions: Impressions Foot X-Ray 01/10/22 17:58 Impression: Diffuse soft tissue swelling with a suggestion of soft tissue defects along the mid to distal calf. At this level there is periosteal reaction to the mid to distal tibia and fibula. Although I do not appreciate any underlying bony destructive lesion, the periosteal changes in this location are concerning for possible subtle osteomyelitis on this x-ray. MRI would be more definitive for subtle changes. More chronic appearing changes in the foot as described above Tibia/Fibula X-Ray 01/10/22 17:58 Impression: Diffuse soft tissue swelling with a suggestion of soft tissue defects along the mid to distal calf. At this level there is periosteal reaction to the mid to distal tibia and fibula. Although I do not appreciate any underlying bony destructive lesion, the periosteal changes in this location are concerning for possible subtle osteomyelitis on this x-ray. MRI would be more definitive for subtle changes. More chronic appearing changes in the foot as described above Assessment and Plan (1) Osteomyelitis: Status: Acute (2) Polysubstance abuse: Status: Acute (3) Opiate dependence: Status: Acute Plan 66-year-old male with a past medical history of polysubstance abuse, opiate dependence on methadone, hep C, liver cirrhosis, tobacco dependence, history of venous stasis ulcers with recurrent cellulitis; presented to the hospital today with a chief complaint of right leg pain, malodor Right leg cellulitis/venous stasis Ulcers / osteomyelitis: X-ray showed periosteal reaction to the mid to distal tibia and fibula concerning for osteomyelitis. Patient is given IV vancomycin and Zosyn ID consult Will also consult vascular surgery further recommendations. Pain control Polysubstance abuse/opiate dependence: Patient on methadone. Addiction Medicine consult Tobacco dependence: Counseled on smoking cessation. DVT prophylaxis: Lovenox Code status: Full code Quality Stroke Does the patient have a stroke diagnosis?: No VTE Prior VTE?: No VTE Risk Level:: Medical - moderate - high VTE Device Contraindication: Treatment Not Indicated VTE Drug Contraindication: N/A - Med Ordered
[2022-01-10 20:55] VITALS: BP 172/83; PULSE 68; RESP 18; TEMP 36.8; O2SAT 98
--- NOTE | 2022-01-10 21:21 | PHA.MEDREC ---
Pharmacy Consult ? Medication Reconciliation Pharmacy has completed the medication reconciliation. Spoke to patient, said he gets methadone [address]. Wasn't sure of the name of the location, but mentioned [facility].
--- NOTE | 2022-01-10 21:48 | PHA.PROG ---
Admission Date/Time: January 10, 2022 20:24 Indication: skin Weight in k.668 kg Adjusted body weight in Kg: [place] body weight in Kg: Obesity Dosing Indication % IBW: Serum Creatinine - Last 168 Hours 01/10/22 18:11 Creatinine 0.81 Estimated CrCl and GFR - Last 168 Hours 01/10/22 18:11 Estim Creat Clear Calc 87.9 Estimated GFR > 60 Vancomycin Loading Dose: 1250mg X 1 Current Vancomycin Dosing Regimen: 750mg Q12H Vancomycin Monitoring using AUC goal of 400 - 600 range with trough as surrogate marker: 468 mg/L Date and Time for next Vancomycin Level to be drawn: 01/12/22 @0500 Pharmacist Comments on Vancomycin Plan: will continue to monitor renal function Vancomycin dosing will take advantage of [employer] as a clinical decision support tool that uses Bayesian modeling to calculate individual patient's pharmacokinetic parameters and forecast the patient's drug concentration time course with the target goal AUC 24 range of 400 - 600 mg/L/hr.
[2022-01-10] MEDS: vancomycin HCL 500 MG in 0.9 % Sodium Chloride 100 ML 110 MG IV (21:56)
[2022-01-10] MEDS: Enoxaparin Sodium 40 MG/0.4 ML SYRINGE SUBCUT (21:56)
[2022-01-10 22:25] LABS: COVID-19 Test Negative (Negative)
[2022-01-11] VITALS (8 sets, daily range): BP systolic 127–185; BP diastolic 65–86; PULSE 65–89; RESP 14–20; TEMP 36.3–36.9; O2SAT 97–98
[2022-01-11] MEDS: Piperacillin Sodium/Tazobactam 3.375 GM in 0.9 % Sodium Chloride 50 ML IV ×4 (01:07→18:22)
[2022-01-11] MEDS: 0.9 % Sodium Chloride Flush 3 ML SYRINGE IVFLUSH ×4 (01:08→19:23)
[2022-01-11] MEDS: vancomycin HCL 750 MG in 0.9 % Sodium Chloride 250 ML 265 MG IV (06:05)
[2022-01-11 06:08] LABS: MANUAL DIFF FLAG NO
[2022-01-11 06:13] LABS: Basophils Percent Auto 0.5 % (0-2); Eosinophils Absolute Auto 0.5 X10*3/uL (0.0-0.4); Eosinophils Percent Auto 5.7 % (0-4); Hematocrit 30.4 % (42.0-52.0); Hemoglobin 9.6 g/dl (14.0-18.0); Imm Gran Abs Auto 0.04 X10*3/uL (0.00-0.03); Imm Gran Pct Auto 0.5 % (0.0-0.4); Lymphocytes Absolute Auto 1.6 X10*3/uL (1.2-4.9); Lymphocytes Percent Auto 19.3 % (20-40); Mean Corpuscular HGB Conc 31.6 g/dl (31.0-36.0); Mean Corpuscular Hemoglobin 24.9 pg (27.0-33.0); Mean Platelet Volume 9.8 fL (9.4-12.4); Monocytes Absolute Auto 1.2 X10*3/uL (0.1-1.2); Monocytes Percent Auto 14.7 % (2-11); Neutrophils Absolute Auto 4.8 x10*3/uL (2.0-8.3); Neutrophils Percent Auto 59.3 % (45-73); Platelet Count 155 X10*3/uL (160-400); Red Blood Count 3.85 X10*6/uL (4.60-5.80); Red Cell Distribution Width 15.9 % (11.0-16.0); White Blood Count 8.1 X10*3/uL (4.8-10.8)
[2022-01-11 06:27] LABS: Anion Gap 9 (12-20); Blood Urea Nitrogen 23 mg/dL (9-16); Calcium 8.2 mg/dL (8.4-10.2); Carbon Dioxide 26 mmol/L (22-29); Chloride 110 mmol/L (96-108); Creatinine Clr Calc Pharmacy 75.7; Estimated Glomerular Filt Rate > 60; Glucose Random 93 mg/dL (60-115); Potassium 3.9 mmol/L (3.3-5.1); Sodium 141 mmol/L (135-145)
--- NOTE | 2022-01-11 08:36 | MHC.RECOVRN ---
Spoke with Desirae at [facility] regarding pts methadone. Last dose received on 01/10/22 at 0725, 70 mg. Pt does have an active order to increase to 80 mg today, 01/11. Discussed with Anita Moran APRN.
--- NOTE | 2022-01-11 08:50 | HE.PHANOTE ---
VANCOMYCIN ADDENDUM: LEVEL ORDERED FOR PAWEL MORNING AT 5, SLIGHT INCREASE IN SCR, AGREE WITH CURRENT REGIMEN, PREDICTED AUC 484
[2022-01-11] MEDS: methADONE HCl 20 MG/2 ML ORAL.CONC 80 MG PO (09:52)
--- NOTE | 2022-01-11 10:20 | HO.PM.IMPN ---
Subjective Subjective Date of Service: 01/11/22 Interval History: No acute issues overnight. Denies pain in leg Review of Systems denies chest pain Denies shortness of breath Denies nausea vomiting diarrhea Physical Exam Vital Signs: Vital Signs: Last Vital Signs Temp 97.4 F 01/11/22 07:56 Pulse 66 01/11/22 07:56 Resp 14 01/11/22 07:56 BP 135/72 01/11/22 07:56 Pulse Ox 97 01/11/22 07:56 BMI result Body Mass Index 24.0 Const: Other: no acute distress Resp: Other: clear to auscultation bilaterally no rales rhonchi or wheezes Cardio: Other: no S4; positive S1-S2; no S3 murmurs rubs or gallops GI: Other: soft nontender nondistended normoactive bowel sounds x4 Skin: Other: right lower extremity wounds essentially unchanged from admission photo Extrem: Other: no edema bilaterally Objective Data Active Medications Enoxaparin Sodium (Enoxaparin Sodium 40 Mg/0.4 Ml Syringe) 40 mg SUBCUT Q24H [facility] Last Admin: 01/10/22 21:56 Dose: 40 mg Documented by: MACY Hydromorphone HCl (Hydromorphone Hcl 1 Mg/Ml Syringe) 0.5 mg IVPUSH Q4H PRN; Protocol PRN Reason: Pain, Severe (Pain Scale 7-10) Piperacillin Sod/Tazobactam (Sod 3.375 gm/ Sodium Chloride) 50 mls @ 100 mls/hr IV Q6H [facility] Last Infusion: 01/11/22 06:36 Dose: 100 mls/hr Documented by: MARYANN Vancomycin HCl 750 mg/ Sodium (Chloride) 265 mls @ 265 mls/hr IV Q12H [facility] Last Infusion: 01/11/22 07:09 Dose: 0 mls/hr Documented by: NGA Melatonin (Melatonin 3 Mg Tablet) 6 mg PO BEDTIME PRN PRN Reason: Insomnia Methadone HCl (Methadone Hcl 20 Mg/2 Ml Oral.Conc) 80 mg PO DAILY [facility] Last Admin: 01/11/22 09:52 Dose: 80 mg Documented by: NGA Pharmacy Consult (Consult Rx Vancomycin Dosing) 1 each MISCELLANE DAILY PRN PRN Reason: Consult order Pharmacy Consult (Consult Rx Perform Med Rec) 1 each MISCELLANE ONCE PRN PRN Reason: Consult order Senna (Sennosides 8.6 Mg Tablet) 17.2 mg PO BEDTIME PRN PRN Reason: Constipation Sodium Chloride (0.9 % Sodium Chloride Flush 3 Ml Syringe) 3 ml IVFLUSH QSHIFT [facility] Last Admin: 01/11/22 09:54 Dose: 3 ml Documented by: NGA Labs CBC & Chem 7: 01/11/22 05:26 01/11/22 05:26 Labs: Laboratory Results - last 24 hr 01/10/22 01/10/22 01/10/22 18:11 18:11 18:11 MCV 79.2 L MCH 24.6 L MCHC 31.1 RDW 15.8 Plt Count 164 MPV 9.5 Immature Gran % (Auto) 0.5 H Neut % (Auto) 75.8 H Lymph % (Auto) 12.4 L [place] % (Auto) 9.7 Eos % (Auto) 1.2 Baso % (Auto) 0.4 Lymph # (Auto) 1.2 [place] # (Auto) 1.0 Eos # (Auto) 0.1 Baso # (Auto) 0.0 Abs Immat Gran (auto) 0.05 H Absolute Neuts (auto) 7.4 Absolute Nucleated RBC 0.000 Nucleated RBC % (auto) 0.0 ESR 44 H Anion Gap 13 Estim Creat Clear Calc 87.9 Estimated GFR > 60 Random Glucose 72 Lactic Acid Calcium 8.6 Total Bilirubin 0.9 AST 57 H ALT 29 Alkaline Phosphatase 109 C-Reactive Protein 2.91 H Total Protein 8.2 H Albumin 3.1 L D COVID-19 (JACQUE) COVID-19 Clin Com 01/10/22 01/10/22 01/11/22 18:11 21:53 05:26 MCV 79.0 L MCH 24.9 L MCHC 31.6 RDW 15.9 Plt Count 155 L MPV 9.8 Immature Gran % (Auto) 0.5 H Neut % (Auto) 59.3 Lymph % (Auto) 19.3 L [place] % (Auto) 14.7 H Eos % (Auto) 5.7 H Baso % (Auto) 0.5 Lymph # (Auto) 1.6 [place] # (Auto) 1.2 Eos # (Auto) 0.5 H Baso # (Auto) 0.0 Abs Immat Gran (auto) 0.04 H Absolute Neuts (auto) 4.8 Absolute Nucleated RBC 0.000 Nucleated RBC % (auto) 0.0 ESR Anion Gap Estim Creat Clear Calc Estimated GFR Random Glucose Lactic Acid 1.0 Calcium Total Bilirubin AST ALT Alkaline Phosphatase C-Reactive Protein Total Protein Albumin COVID-19 (JACQUE) Negative COVID-19 Clin Com See Note 01/11/22 05:26 MCV MCH MCHC RDW Plt Count MPV Immature Gran % (Auto) Neut % (Auto) Lymph % (Auto) [place] % (Auto) Eos % (Auto) Baso % (Auto) Lymph # (Auto) [place] # (Auto) Eos # (Auto) Baso # (Auto) Abs Immat Gran (auto) Absolute Neuts (auto) Absolute Nucleated RBC Nucleated RBC % (auto) ESR Anion Gap 9 L Estim Creat Clear Calc 75.7 Estimated GFR > 60 Random Glucose 93 Lactic Acid Calcium 8.2 L Total Bilirubin AST ALT Alkaline Phosphatase C-Reactive Protein Total Protein Albumin COVID-19 (JACQUE) COVID-19 Clin Com Assessment and Plan (1) Osteomyelitis: Status: Acute (2) Opiate dependence: Status: Acute Plan 66-year-old male with a past medical history of polysubstance abuse, opiate dependence on methadone, hep C, liver cirrhosis, tobacco dependence, history of venous stasis ulcers with recurrent cellulitis; presented to the hospital today with a chief complaint of right leg pain; x-ray suspicious for osteomyelitis mid to distal tib-fib. 1. Osteomyelitis -IV Vanco/Zosyn -verify with MRI( need to definitively diagnose given history of IV drug abuse) -ID consult pending 2.Opiod Abuse -Methadone as per outpatient -Addiction Medicine verified Requires ongoing hospitalization for verification of osteomyelitis and treatment with IV antibiotics Quality Stroke Does the patient have a stroke diagnosis?: No VTE Prior VTE?: No VTE Risk Level:: Medical - moderate - high VTE Device Contraindication: Treatment Not Indicated VTE Drug Contraindication: N/A - Med Ordered
--- NOTE | 2022-01-11 11:07 | HE.PHANOTE ---
VANCOMYCIN ADDENDUM: DISCUSSED WITHN DR LAWSON, HE WOULD LIKE TO INCREASE TO 1 GRAM Q 12 HOURS, AND CHECK LEVEL AFTER 3 DOSES, DON'T CHANGE PER INSIGHT UNLESS DISCUSSED WITH HIM
[2022-01-11 11:32] LABS: Vancomycin Trough 8.6 mcg/mL (10.0-20.0)
--- NOTE | 2022-01-11 11:41 | HO.ADDICTCON ---
History of Present Illness Date of Service: 01/11/2022 Chief Complaint: osteomyelitis Reason for Consult: methadone--substance use Requesting physician: Raudel Blas HPI Narrative: Patient is a 66 year old male with OUD, currently medically admitted for concern of osteomyelitis of lower extremity. Consult requested as patient reported ongoing substance use. Methadone dose verified by [facility]--last dose of 70mg administered 01/10, with an order to increase to 80mg today, 01/11. Patient seen in room 352. Had just recieved methadone dose. Awake, alert, pleasant and engaged in interview--concerned that he missed housing court date. Provided patient with number to call court. Patient known to this loan underwriter via previous admissions. Discussed current use, reports that he will use on days that he misses methadone dosing--states he misses dosing due to pain in his legs and difficulty walking there. Review of Systems Constitutional: Reports as per HPI (denies any withdrawal symptoms) Diagnostics Vital Signs (24Hr): Vital Signs - 24 hr 01/10/22 14:06 01/10/22 17:27 01/10/22 19:33 Temperature 98.3 F 98.2 F 97.7 F Pulse Rate 102 H 71 74 Respiratory Rate 18 18 19 Blood Pressure 153/80 H 133/60 145/83 H Pulse Oximetry 96 95 97 01/10/22 20:55 01/11/22 01:02 01/11/22 03:59 Temperature 98.2 F 97.6 F 97.3 F Pulse Rate 68 68 89 Respiratory Rate 18 17 18 Blood Pressure 172/83 H 185/86 H 158/75 H Pulse Oximetry 98 97 97 01/11/22 04:00 01/11/22 07:56 01/11/22 11:12 Temperature 97.4 F 98.5 F Pulse Rate 66 65 Respiratory Rate 20 14 16 Blood Pressure 135/72 131/65 Pulse Oximetry 97 97 BMI result Body Mass Index 24.0 Labs Results: 01/11/22 05:26 01/11/22 05:26 Labs: Laboratory Results - last 48 hr 01/10/22 01/10/22 01/10/22 18:11 18:11 18:11 WBC 9.8 RBC 4.14 L Hgb 10.2 L Hct 32.8 L MCV 79.2 L MCH 24.6 L MCHC 31.1 RDW 15.8 Plt Count 164 MPV 9.5 Immature Gran % (Auto) 0.5 H Neut % (Auto) 75.8 H Lymph % (Auto) 12.4 L [place] % (Auto) 9.7 Eos % (Auto) 1.2 Baso % (Auto) 0.4 Lymph # (Auto) 1.2 [place] # (Auto) 1.0 Eos # (Auto) 0.1 Baso # (Auto) 0.0 Abs Immat Gran (auto) 0.05 H Absolute Neuts (auto) 7.4 Absolute Nucleated RBC 0.000 Nucleated RBC % (auto) 0.0 ESR 44 H Sodium 134 L Potassium 4.6 Chloride 104 Carbon Dioxide 22 Anion Gap 13 BUN 22 H Creatinine 0.81 Estim Creat Clear Calc 87.9 Estimated GFR > 60 Random Glucose 72 Lactic Acid Calcium 8.6 Total Bilirubin 0.9 AST 57 H ALT 29 Alkaline Phosphatase 109 C-Reactive Protein 2.91 H Total Protein 8.2 H Albumin 3.1 L D Vancomycin Trough COVID-19 (JACQUE) COVID-19 Clin Com 01/10/22 01/10/22 01/11/22 18:11 21:53 05:26 WBC 8.1 RBC 3.85 L Hgb 9.6 L Hct 30.4 L MCV 79.0 L MCH 24.9 L MCHC 31.6 RDW 15.9 Plt Count 155 L MPV 9.8 Immature Gran % (Auto) 0.5 H Neut % (Auto) 59.3 Lymph % (Auto) 19.3 L [place] % (Auto) 14.7 H Eos % (Auto) 5.7 H Baso % (Auto) 0.5 Lymph # (Auto) 1.6 [place] # (Auto) 1.2 Eos # (Auto) 0.5 H Baso # (Auto) 0.0 Abs Immat Gran (auto) 0.04 H Absolute Neuts (auto) 4.8 Absolute Nucleated RBC 0.000 Nucleated RBC % (auto) 0.0 ESR Sodium Potassium Chloride Carbon Dioxide Anion Gap BUN Creatinine Estim Creat Clear Calc Estimated GFR Random Glucose Lactic Acid 1.0 Calcium Total Bilirubin AST ALT Alkaline Phosphatase C-Reactive Protein Total Protein Albumin Vancomycin Trough COVID-19 (JACQUE) Negative COVID-19 Clin Com See Note 01/11/22 01/11/22 05:26 10:59 WBC RBC Hgb Hct MCV MCH MCHC RDW Plt Count MPV Immature Gran % (Auto) Neut % (Auto) Lymph % (Auto) [place] % (Auto) Eos % (Auto) Baso % (Auto) Lymph # (Auto) [place] # (Auto) Eos # (Auto) Baso # (Auto) Abs Immat Gran (auto) Absolute Neuts (auto) Absolute Nucleated RBC Nucleated RBC % (auto) ESR Sodium 141 Potassium 3.9 Chloride 110 H Carbon Dioxide 26 Anion Gap 9 L BUN 23 H Creatinine 0.94 Estim Creat Clear Calc 75.7 Estimated GFR > 60 Random Glucose 93 Lactic Acid Calcium 8.2 L Total Bilirubin AST ALT Alkaline Phosphatase C-Reactive Protein Total Protein Albumin Vancomycin Trough 8.6 L COVID-19 (JACQUE) COVID-19 Clin Com Imaging Radiology Impressions: ITS Impressions Foot X-Ray 01/10/22 17:58 Impression: Diffuse soft tissue swelling with a suggestion of soft tissue defects along the mid to distal calf. At this level there is periosteal reaction to the mid to distal tibia and fibula. Although I do not appreciate any underlying bony destructive lesion, the periosteal changes in this location are concerning for possible subtle osteomyelitis on this x-ray. MRI would be more definitive for subtle changes. More chronic appearing changes in the foot as described above Tibia/Fibula X-Ray 01/10/22 17:58 Impression: Diffuse soft tissue swelling with a suggestion of soft tissue defects along the mid to distal calf. At this level there is periosteal reaction to the mid to distal tibia and fibula. Although I do not appreciate any underlying bony destructive lesion, the periosteal changes in this location are concerning for possible subtle osteomyelitis on this x-ray. MRI would be more definitive for subtle changes. More chronic appearing changes in the foot as described above Mental Status Exam Mental Status Exam Patient Appearance: Unkempt Patient Orientation: Person, Place, Time and Situation Level of Consciousness: Awake and Appropriate Medications Medications Current Medications Enoxaparin Sodium (Enoxaparin Sodium 40 Mg/0.4 Ml Syringe) 40 mg SUBCUT Q24H [facility] Last Admin: 01/10/22 21:56 Dose: 40 mg Documented by: Hydromorphone HCl (Hydromorphone Hcl 1 Mg/Ml Syringe) 0.5 mg IVPUSH Q4H PRN; Protocol PRN Reason: Pain, Severe (Pain Scale 7-10) Piperacillin Sod/Tazobactam (Sod 3.375 gm/ Sodium Chloride) 50 mls @ 100 mls/hr IV Q6H [facility] Last Infusion: 01/11/22 06:36 Dose: Infused Documented by: Vancomycin HCl 1,000 mg/ (Sodium Chloride) 270 mls @ 270 mls/hr IV Q12H [facility] Melatonin (Melatonin 3 Mg Tablet) 6 mg PO BEDTIME PRN PRN Reason: Insomnia Methadone HCl (Methadone Hcl 20 Mg/2 Ml Oral.Conc) 80 mg PO DAILY [facility] Last Admin: 01/11/22 09:52 Dose: 80 mg Documented by: Pharmacy Consult (Consult Rx Vancomycin Dosing) 1 each MISCELLANE DAILY PRN PRN Reason: Consult order Pharmacy Consult (Consult Rx Perform Med Rec) 1 each MISCELLANE ONCE PRN PRN Reason: Consult order Senna (Sennosides 8.6 Mg Tablet) 17.2 mg PO BEDTIME PRN PRN Reason: Constipation Sodium Chloride (0.9 % Sodium Chloride Flush 3 Ml Syringe) 3 ml IVFLUSH QSHIFT [facility] Last Admin: 01/11/22 09:54 Dose: 3 ml Documented by: Allergies Allergies Allergy/AdvReac Type Severity Reaction Status Date / Time trazodone [TRAZODONE] Allergy Intermediate RESTLESS Verified 03/10/21 00:45 LEGS Assessment & Plan Assessment & Plan (1) Opioid use disorder: Status: Acute Code(s): F11.99 - Opioid use, unspecified with unspecified opioid-induced disorder Assessment and Plan: continue methadone at current dose (80mg daily) risk reduction discussion declines additional referrals at this time I spent ___30___ minutes with the patient and/or on the patient floor today, greater than?50% of which was spent counseling/coordinating care. [facility] Past Medical History Medical History (Updated 01/11/22 @ 17:00 by Anita Moran CNP) Anemia Cellulitis Cellulitis Cellulitis Chronic cutaneous venous stasis ulcer Cirrhosis Depression Hepatitis C Infected wound Opioid use disorder Opioid use disorder Polysubstance abuse Tobacco dependence Varicose veins of right lower extremity with inflammation Venous stasis ulcer Family History Family History Mother CAD (coronary artery disease) ESRD (end stage renal disease) Brother Liver failure Surgical History Surgical History H/O hernia repair Social History Social History Household Members: None Household Members Other:: Currently residing in a rehab facility Housing: Apartment Housing Other:: Currently residing in a rehab facility Do you presently have visiting nurse or other home services: No Alcohol intake: never Patient Tobacco Use Status: Never used Tobacco Tobacco use type: Cigarette Cigarettes Per Day: 2 Years Smoked: 40 Smoked in Last 30 Days: No e-Cigarette/Vaping Use: Never Used Second Hand Smoke Exposure: Yes Use of substances other than those prescribed or required for medical reasons: Yes Substance Use Type: Crack/Cocaine Last Used Substance Other:: pt states his in the methadone program but sometimes uses street drugs Currently Displaying Signs/Symptoms of Drug Intoxication Withdrawal: No Any prior treatment program specific to substance use: No Have you been hit, kicked, punched, or otherwise hurt by someone within the past year? If so, by whom?: No Do you feel safe in your current relationship?: Yes Is there a partner from a previous relationship who is making you feel unsafe now?: No Are you made to feel afraid or neglected: No Advance Directives: No Advance Directives Information Provided: No Do you have thoughts of harming others: None Do you have a plan to hurt others: No Plan Recently lost weight without trying: No Eating poorly because of decreased appetite: No Nutrition Risks: No Nutritional Risk service: No Current occupational status: disabled
--- NOTE | 2022-01-11 14:48 | MHC.CM.PN ---
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 human services case manager note electronic medical record reviewed along with case disussed with the hospitalist ,+ met with patient , cymraes speaking alert orientated , reported he lives alone in apt in [place] was was suppose to be in court yesterday reaarding a evction noitce but instead was hospitlaised , he does not know if he will have a apt to go back to when discharged , he has no vna no dme services or hosiery pairer services in the home , he has a dog named kunal that his friend is caring fo at this time, he has a health care procy on file , he did recive the j&j covid vacination and one booster does not rember the dates and does not have a cvacination card on him, he rpeortes he sees a doctor at the [facility] , but does not recAL THE NAME , (HE WALKS OR RIDES OR TAKES PUBLIC TRANSPORTATION TO THE [facility]ETHADONE CLINIC SENT TASK TO CASE MANAGEMENT OFFICE FOR PCP ALVIN F/U) PATIENT REPORTS HE IS A SMOKER , AND IS ON METHADONE FROM [facility] IN [place] AT TIMES HE ALSS O TAKES STREET DRUGS IV HEROIN , PER DCOUMENTATION HE HAS CHRONIC VENOUS STASIS AND ADMITTED WITH CELLULITIS AND OSTEOMYELITIS, CURRENTLY HE IS ON IV VANCOMYCIN AND IV ZOSYN , [facility] ADDICITION PROGRAM ID CONS TO BE SEEN DISCHARGE PLAN 1. ?IF HE STILL HAS A HOEM TO RETUN BACK TO 2, STR IF NEEDS CORRECTION IV ABX HE HAS BEEN AT [facility] IN [place] AND WOULD BE ALSO WILLING TO GO TO [facility] OR [facility] [employer] TO CONTINUE TO FOOLLOW FOR THESE NEEDS HCP ON FILE CARLITOS JACKSON X1 AND X1 BOOSTER PCP AT THE [facility] MEDICARE IMM 01/11/22
--- NOTE | 2022-01-11 15:33 | W.PM.IDCN ---
History of Present Illness Data of Consult Service Date: 01/11/22 Requesting physician: Miah Marie Primary Care Provider: Unknown Physician HPI Reason for consult: right leg erythema,?osteomyelitis He presents with right leg erythema as well as pain for two to three days. He denies fever or chills. He has concern over tibia/fibula early osteomyelitis changes. He uses IV drugs. Review of Systems Review of Systems: Yes all other systems are reviewed and are negative PMFSH Past Medical History Medical History (Updated 01/11/22 @ 15:43 by Muna Monreal MD) Anemia Cellulitis Cellulitis Cellulitis Chronic cutaneous venous stasis ulcer Cirrhosis Depression Hepatitis C Infected wound Opioid use disorder Opioid use disorder Polysubstance abuse Tobacco dependence Varicose veins of right lower extremity with inflammation Venous stasis ulcer Family History Family History Mother CAD (coronary artery disease) ESRD (end stage renal disease) Brother Liver failure Family history: reviewed and not pertinent Surgical History Surgical History H/O hernia repair Social History Social History Household Members: None Household Members Other:: Currently residing in a rehab facility Housing: Apartment Housing Other:: Currently residing in a rehab facility Do you presently have visiting nurse or other home services: No Alcohol intake: never Patient Tobacco Use Status: Never used Tobacco Tobacco use type: Cigarette Cigarettes Per Day: 2 Years Smoked: 40 Smoked in Last 30 Days: No e-Cigarette/Vaping Use: Never Used Second Hand Smoke Exposure: Yes Use of substances other than those prescribed or required for medical reasons: Yes Substance Use Type: Crack/Cocaine Last Used Substance Other:: pt states his in the methadone program but sometimes uses street drugs Currently Displaying Signs/Symptoms of Drug Intoxication Withdrawal: No Any prior treatment program specific to substance use: No Have you been hit, kicked, punched, or otherwise hurt by someone within the past year? If so, by whom?: No Do you feel safe in your current relationship?: Yes Is there a partner from a previous relationship who is making you feel unsafe now?: No Are you made to feel afraid or neglected: No Advance Directives: No Advance Directives Information Provided: No Do you have thoughts of harming others: None Do you have a plan to hurt others: No Plan Recently lost weight without trying: No Eating poorly because of decreased appetite: No Nutrition Risks: No Nutritional Risk service: No Current occupational status: disabled Meds Allergies Allergy/AdvReac Type Severity Reaction Status Date / Time trazodone [TRAZODONE] Allergy Intermediate RESTLESS Verified 03/10/21 00:45 LEGS Active Medications: Current Medications Enoxaparin Sodium (Enoxaparin Sodium 40 Mg/0.4 Ml Syringe) 40 mg SUBCUT Q24H [facility] Last Admin: 01/10/22 21:56 Dose: 40 mg Documented by: Hydromorphone HCl (Hydromorphone Hcl 1 Mg/Ml Syringe) 0.5 mg IVPUSH Q4H PRN; Protocol PRN Reason: Pain, Severe (Pain Scale 7-10) Piperacillin Sod/Tazobactam (Sod 3.375 gm/ Sodium Chloride) 50 mls @ 100 mls/hr IV Q6H [facility] Last Infusion: 01/11/22 14:14 Dose: Infused Documented by: Vancomycin HCl 1,000 mg/ (Sodium Chloride) 270 mls @ 270 mls/hr IV Q12H [facility] Melatonin (Melatonin 3 Mg Tablet) 6 mg PO BEDTIME PRN PRN Reason: Insomnia Methadone HCl (Methadone Hcl 20 Mg/2 Ml Oral.Conc) 80 mg PO DAILY [facility] Last Admin: 01/11/22 09:52 Dose: 80 mg Documented by: Pharmacy Consult (Consult Rx Vancomycin Dosing) 1 each MISCELLANE DAILY PRN PRN Reason: Consult order Pharmacy Consult (Consult Rx Perform Med Rec) 1 each MISCELLANE ONCE PRN PRN Reason: Consult order Senna (Sennosides 8.6 Mg Tablet) 17.2 mg PO BEDTIME PRN PRN Reason: Constipation Sodium Chloride (0.9 % Sodium Chloride Flush 3 Ml Syringe) 3 ml IVFLUSH QSHIFT [facility] Last Admin: 01/11/22 13:43 Dose: 3 ml Documented by: Home Medications Medication Instructions Recorded Confirmed Last Taken Type methadone 10 mg/mL oral concentrate 70 mg PO DAILY 01/10/22 01/10/22 History Physical Exam Vital Signs: Vital Signs: Last Vital Signs Temp 98.5 F 01/11/22 11:12 Pulse 65 01/11/22 11:12 Resp 16 01/11/22 11:12 BP 131/65 01/11/22 11:12 Pulse Ox 97 01/11/22 11:12 BMI result Body Mass Index 24.0 Const: General: cooperative HEENT: Mouth: Normal oral and palatal mucosa present Resp: Effort & Inspection: normal respiratory effort Cardio: Rate: regular rate Rhythm: regular rhythm GI: Palpation (GI): Soft to palpation and nontender Skin: General skin exam: no rashes or lesions noted Extrem: Other: RLE erythema and foul discharge Results Labs CBC & Chem 7: 01/11/22 05:26 01/11/22 05:26 Labs: Short CBC 01/10/22 01/11/22 Range/Units 18:11 05:26 WBC 9.8 8.1 (4.8-10.8) X10*3/uL Hgb 10.2 L 9.6 L (14.0-18.0) g/dl Hct 32.8 L 30.4 L (42.0-52.0) % Plt Count 164 155 L (160-400) X10*3/uL BMP 01/10/22 01/11/22 18:11 05:26 Sodium 134 L 141 Potassium 4.6 3.9 Chloride 104 110 H Carbon Dioxide 22 26 BUN 22 H 23 H Creatinine 0.81 0.94 Calcium 8.6 8.2 L Liver Function 01/10/22 Range/Units 18:11 Total Bilirubin 0.9 (0.0-1.0) mg/dL AST 57 H (5-37) U/L ALT 29 (0-40) U/L Alkaline Phosphatase 109 (39-117) U/L Albumin 3.1 L D (3.5-5.0) g/dL Assessment and Plan (1) Cellulitis: Status: Acute There is suggestion of osteomyelitis tibia and fibula. Organisms include gram negative and gram positive in at least cellulitis. Plan Continue Vancomycin and Zosyn Check MRI leg evaluate osteomyelitis. Help with addiction Plan depends on results of MRI
--- NOTE | 2022-01-11 15:51 | PM.CNGS ---
History of Present Illness Consult details Consult date: 01/11/22 Narrative: 66-year-old gentleman well known to me from multiple prior hospital admissions presents for nonhealing ulcers. Of note he has a prior history significant for opiate use disorder, polysubstance abuse, tobacco dependence, nonhealing ulcers, hep C, and liver cirrhosis now presents for repeat nonhealing right pretibial ulcer. They have been present for some time. Of note he was worked up in the past and was positive for venous insufficiency at that time. Of note he has been positive for COVID in the past as well. Review of Systems Constitutional: Constitutional: Reports as per HPI ENT: Reports system reviewed and no additional complaints, except as documented Cardiovascular: Cardiovascular: Denies chest pain, Denies chest pain at rest and Denies chest pain with activity Respiratory: Respiratory: Denies chest congestion and Denies cough Gastrointestinal: Gastrointestinal: Reports no additional gastrointestinal complaints Musculoskeletal: Musculoskeletal: Denies abnormal gait Integumentary/Breasts: Skin/Breast: Reports pruritus and Denies wounds Neurologic: Reports system reviewed and no additional complaints, except as documented and Denies abnormal gait Psychiatric: Psychiatric: Denies no additional psychiatric complaints [facility] Past Medical History Medical History (Updated 01/11/22 @ 15:56 by Bassem Birmingham MD) Anemia Cellulitis Cellulitis Cellulitis Chronic cutaneous venous stasis ulcer Cirrhosis Depression Hepatitis C Infected wound Opioid use disorder Opioid use disorder Polysubstance abuse Tobacco dependence Varicose veins of right lower extremity with inflammation Venous stasis ulcer Family History Family History Mother CAD (coronary artery disease) ESRD (end stage renal disease) Brother Liver failure Family history: reviewed and not pertinent Surgical History Surgical History H/O hernia repair Social History Social History Household Members: None Household Members Other:: Currently residing in a rehab facility Housing: Apartment Housing Other:: Currently residing in a rehab facility Do you presently have visiting nurse or other home services: No Alcohol intake: never Patient Tobacco Use Status: Never used Tobacco Tobacco use type: Cigarette Cigarettes Per Day: 2 Years Smoked: 40 Smoked in Last 30 Days: No e-Cigarette/Vaping Use: Never Used Second Hand Smoke Exposure: Yes Use of substances other than those prescribed or required for medical reasons: Yes Substance Use Type: Crack/Cocaine Last Used Substance Other:: pt states his in the methadone program but sometimes uses street drugs Currently Displaying Signs/Symptoms of Drug Intoxication Withdrawal: No Any prior treatment program specific to substance use: No Have you been hit, kicked, punched, or otherwise hurt by someone within the past year? If so, by whom?: No Do you feel safe in your current relationship?: Yes Is there a partner from a previous relationship who is making you feel unsafe now?: No Are you made to feel afraid or neglected: No Advance Directives: No Advance Directives Information Provided: No Do you have thoughts of harming others: None Do you have a plan to hurt others: No Plan Recently lost weight without trying: No Eating poorly because of decreased appetite: No Nutrition Risks: No Nutritional Risk service: No Current occupational status: disabled Meds Allergies Allergy/AdvReac Type Severity Reaction Status Date / Time trazodone [TRAZODONE] Allergy Intermediate RESTLESS Verified 03/10/21 00:45 LEGS Active Medications: Current Medications Enoxaparin Sodium (Enoxaparin Sodium 40 Mg/0.4 Ml Syringe) 40 mg SUBCUT Q24H [facility] Last Admin: 01/10/22 21:56 Dose: 40 mg Documented by: Hydromorphone HCl (Hydromorphone Hcl 1 Mg/Ml Syringe) 0.5 mg IVPUSH Q4H PRN; Protocol PRN Reason: Pain, Severe (Pain Scale 7-10) Piperacillin Sod/Tazobactam (Sod 3.375 gm/ Sodium Chloride) 50 mls @ 100 mls/hr IV Q6H [facility] Last Infusion: 01/11/22 14:14 Dose: Infused Documented by: Vancomycin HCl 1,000 mg/ (Sodium Chloride) 270 mls @ 270 mls/hr IV Q12H [facility] Melatonin (Melatonin 3 Mg Tablet) 6 mg PO BEDTIME PRN PRN Reason: Insomnia Methadone HCl (Methadone Hcl 20 Mg/2 Ml Oral.Conc) 80 mg PO DAILY [facility] Last Admin: 01/11/22 09:52 Dose: 80 mg Documented by: Pharmacy Consult (Consult Rx Vancomycin Dosing) 1 each MISCELLANE DAILY PRN PRN Reason: Consult order Pharmacy Consult (Consult Rx Perform Med Rec) 1 each MISCELLANE ONCE PRN PRN Reason: Consult order Senna (Sennosides 8.6 Mg Tablet) 17.2 mg PO BEDTIME PRN PRN Reason: Constipation Sodium Chloride (0.9 % Sodium Chloride Flush 3 Ml Syringe) [facility] Last Admin: 01/11/22 13:43 Dose: 3 ml Documented by: Home Medications Medication Instructions Recorded Confirmed Last Taken Type methadone 10 mg/mL oral concentrate 70 mg PO DAILY 01/10/22 01/10/22 History Physical Exam Vital Signs: Vital Signs: Last Vital Signs Temp 97.3 F 01/11/22 15:36 Pulse 66 01/11/22 15:36 Resp 18 01/11/22 15:36 BP 127/78 01/11/22 15:36 Pulse Ox 98 01/11/22 15:36 BMI result Body Mass Index 24.0 Const: General: cooperative, healthy appearing and comfortable Orientation/consciousness: oriented to person, oriented to place and oriented to time Neck: Carotids: no bruits Chest: Chest palpation & inspection: normal inspection of the chest and normal palpation of entire chest wall Resp: Effort & Inspection: normal respiratory effort and able to speak in complete sentences Cardio: Rate: regular rate Heart sounds: S1 normal heart sound present and S2 normal heart sound present Peripheral pulses: Peripheral pulses 2+ throughout GI: Inspection: Yes normal to inspection Skin: Other: +2 edema, bilateral lower extremity pretibial and calf ulcerations CEAP Classification c6- active ulceration Ep - Etiology Primary As - superficial veins P - reflux General skin exam: dry skin Neuro: General: oriented to person, oriented to place and oriented to time Extrem: Right lower extremity: full ROM, normal capillary refill and edema Left lower extremity: full ROM, normal capillary refill and edema Psych: Mental Status: mental status grossly normal Results Labs Result diagrams: 01/11/22 05:26 01/11/22 05:26 Labs: Abnormal lab results 01/10/22 01/10/22 01/10/22 Range/Units 18:11 18:11 18:11 RBC 4.14 L (4.60-5.80) X10*6/uL Hgb 10.2 L (14.0-18.0) g/dl Hct 32.8 L (42.0-52.0) % MCV 79.2 L (80.0-98.0) fL MCH 24.6 L (27.0-33.0) pg Plt Count (160-400) X10*3/uL Immature Gran % (Auto) 0.5 H (0.0-0.4) % Neut % (Auto) 75.8 H (45-73) % Lymph % (Auto) 12.4 L (20-40) % [place] % (Auto) (2-11) % Eos % (Auto) (0-4) % Eos # (Auto) (0.0-0.4) X10*3/uL Abs Immat Gran (auto) 0.05 H (0.00-0.03) X10*3/uL ESR 44 H (0-15) MM/HR Sodium 134 L (135-145) mmol/L Chloride (96-108) mmol/L Anion Gap (12-20) BUN 22 H (9-16) mg/dL Calcium (8.4-10.2) mg/dL AST 57 H (5-37) U/L C-Reactive Protein 2.91 H (< or = 0.50) mg/dL Total Protein 8.2 H (6.5-8.0) g/dL Albumin 3.1 L D (3.5-5.0) g/dL Vancomycin Trough (10.0-20.0) mcg/mL 01/11/22 01/11/22 01/11/22 Range/Units 05:26 05:26 10:59 RBC 3.85 L (4.60-5.80) X10*6/uL Hgb 9.6 L (14.0-18.0) g/dl Hct 30.4 L (42.0-52.0) % MCV 79.0 L (80.0-98.0) fL MCH 24.9 L (27.0-33.0) pg Plt Count 155 L (160-400) X10*3/uL Immature Gran % (Auto) 0.5 H (0.0-0.4) % Neut % (Auto) (45-73) % Lymph % (Auto) 19.3 L (20-40) % [place] % (Auto) 14.7 H (2-11) % Eos % (Auto) 5.7 H (0-4) % Eos # (Auto) 0.5 H (0.0-0.4) X10*3/uL Abs Immat Gran (auto) 0.04 H (0.00-0.03) X10*3/uL ESR (0-15) MM/HR Sodium (135-145) mmol/L Chloride 110 H (96-108) mmol/L Anion Gap 9 L (12-20) BUN 23 H (9-16) mg/dL Calcium 8.2 L (8.4-10.2) mg/dL AST (5-37) U/L C-Reactive Protein (< or = 0.50) mg/dL Total Protein (6.5-8.0) g/dL Albumin (3.5-5.0) g/dL Vancomycin Trough 8.6 L (10.0-20.0) mcg/mL Short CBC 01/10/22 01/11/22 Range/Units 18:11 05:26 WBC 9.8 8.1 (4.8-10.8) X10*3/uL Hgb 10.2 L 9.6 L (14.0-18.0) g/dl Hct 32.8 L 30.4 L (42.0-52.0) % Plt Count 164 155 L (160-400) X10*3/uL BMP 01/10/22 01/11/22 18:11 05:26 Sodium 134 L 141 Potassium 4.6 3.9 Chloride 104 110 H Carbon Dioxide 22 26 BUN 22 H 23 H Creatinine 0.81 0.94 Calcium 8.6 8.2 L Liver Function 01/10/22 Range/Units 18:11 Total Bilirubin 0.9 (0.0-1.0) mg/dL AST 57 H (5-37) U/L ALT 29 (0-40) U/L Alkaline Phosphatase 109 (39-117) U/L Albumin 3.1 L D (3.5-5.0) g/dL All other labs normal. Assessment and Plan (1) Venous stasis ulcer: Qualifiers: Laterality: right Non-pressure ulcer stage: with fat layer exposed Varicose vein presence: without varicose veins Venous stasis ulcer site: other part of lower leg Qualified Code(s): I87.2 - Venous insufficiency (chronic) (peripheral); L97.812 - Non-pressure chronic ulcer of other part of right lower leg with fat layer exposed Status: Acute Plan In short patient has bilateral lower extremity venous ulcers. He has been positive for reflux. He has failed to show up in the office for additional treatment. At the current time would recommend local wound care in addition to follow-up on MRI. Infectious disease note appreciated. We will follow with you as inpatient. Upon discharge he will require outpatient follow-up for venous treatment in the hopes to heal these ulcers and prevent further recurrence. Thank you for allowing us to participate in his care. If there are any questions or concerns please do not hesitate to contact us. Procedures Date of Service Date of Service: 01/11/22
[2022-01-11] MEDS: vancomycin HCL 1,000 MG in 0.9 % Sodium Chloride 250 ML 270 MG IV (17:12)
[2022-01-11] MEDS: Enoxaparin Sodium 40 MG/0.4 ML SYRINGE SUBCUT (19:23)
[2022-01-12] MEDS: Piperacillin Sodium/Tazobactam 3.375 GM in 0.9 % Sodium Chloride 50 ML IV ×2 (00:02→06:05)
[2022-01-12 03:21] VITALS: BP 142/78; PULSE 77; RESP 18; TEMP 36.6; O2SAT 100
[2022-01-12 06:31] LABS: MANUAL DIFF FLAG NO
[2022-01-12 06:45] LABS: Basophils Percent Auto 0.6 % (0-2); Eosinophils Absolute Auto 0.5 X10*3/uL (0.0-0.4); Eosinophils Percent Auto 7.7 % (0-4); Hematocrit 33.8 % (42.0-52.0); Hemoglobin 10.4 g/dl (14.0-18.0); Imm Gran Abs Auto 0.02 X10*3/uL (0.00-0.03); Imm Gran Pct Auto 0.3 % (0.0-0.4); Lymphocytes Absolute Auto 1.6 X10*3/uL (1.2-4.9); Lymphocytes Percent Auto 22.4 % (20-40); Mean Corpuscular HGB Conc 30.8 g/dl (31.0-36.0); Mean Corpuscular Hemoglobin 24.5 pg (27.0-33.0); Mean Corpuscular Volume 79.5 fL (80.0-98.0); Mean Platelet Volume 9.4 fL (9.4-12.4); Monocytes Absolute Auto 0.8 X10*3/uL (0.1-1.2); Monocytes Percent Auto 11.9 % (2-11); Neutrophils Percent Auto 57.1 % (45-73); Platelet Count 157 X10*3/uL (160-400); Red Blood Count 4.25 X10*6/uL (4.60-5.80); Red Cell Distribution Width 15.9 % (11.0-16.0); White Blood Count 7.1 X10*3/uL (4.8-10.8)
[2022-01-12] MEDS: vancomycin HCL 1,000 MG in 0.9 % Sodium Chloride 250 ML 270 MG IV (06:57)
[2022-01-12 07:08] LABS: Alanine Aminotransferase 21 U/L (0-40); Albumin Level 2.6 g/dL (3.5-5.0); Alkaline Phosphatase 112 U/L (39-117); Anion Gap 10 (12-20); Aspartate Amino Transferase 36 U/L (5-37); Bilirubin Total 0.6 mg/dL (0.0-1.0); Blood Urea Nitrogen 23 mg/dL (9-16); Calcium 8.3 mg/dL (8.4-10.2); Carbon Dioxide 24 mmol/L (22-29); Chloride 107 mmol/L (96-108); Creatinine Clr Calc Pharmacy 74.2; Estimated Glomerular Filt Rate > 60; Glucose Fasting 98 mg/dL (60-99); Sodium 137 mmol/L (135-145)
--- NOTE | 2022-01-12 07:54 | HE.PHANOTE ---
Vancomycin Dosing Addendum Trough 11.0 this morning. Continue with current regimen of 1000 mg q12h. Keep an eye on SCR as it is trending up. Next trough 01/13/22 @0500.
[2022-01-12 08:00] VITALS: BP 128/68; PULSE 62; RESP 16; TEMP 35.7; O2SAT 97
[2022-01-12] MEDS: methADONE HCl 20 MG/2 ML ORAL.CONC 80 MG PO (08:34)
[2022-01-12] MEDS: 0.9 % Sodium Chloride Flush 3 ML SYRINGE IVFLUSH (08:35)
--- NOTE | 2022-01-12 10:27 | PM.DS ---
DS: Providers Provider Date of Service: 01/12/22 Date of admission: 01/10/22 20:24 Date of discharge: 01/12/22 Primary care physician: Dru Physician Consults: 01/10/22 20:27 Addiction Medicine Routine Consulting Provider: Anita Moran Reason for consultation: pt on methadone Consult to Infectious Diseases Routine Consulting Provider: Muna Monreal Reason for consultation: osteomyelitis Consult to Vascular Surgery Routine Consulting Provider: Bassem Birmingham Reason for consultation: venous stasis ulcer; cellulitis; osteomyelitis DS: Diagnosis Discharge Diagnosis (1) Venous stasis ulcer: Status: Acute (2) Opioid use disorder: Status: Acute DS: Summary Hospital Course Hospital Course: 66-year-old male with history of chronic bilateral venous stasis ulcers and history of noncompliance with vascular surgery presents to the emergency room on 01/10 with foul-smelling drainage. Initial workup with plain films question some periosteal changes that could be consistent with osteomyelitis. Admitted and placed on vancomycin and Zosyn. Subsequent MRI failed to demonstrate osteomyelitis. Seen in consultation by Infectious Disease who recommended 14 days of Augmentin and doxycycline as outpatient. Patient was also seen in consultation by vascular surgery; recommends localized wound care and follow-up with the office for venous ablation. Compliance with outpatient appointments with stress with patient. patient will be discharged with VNA services to follow up with vascular in the office Time Spent with Patient Time attestation: Total time spent providing and/or coordinating discharge services: Discharge coordination time: Greater than 30 minutes Quality: Safe Use of Opioids Does Pt have an Active Cancer Diagnosis on the Problem List?: No Quality: Stroke Does the patient have a stroke diagnosis?: No Physical Exam Vital Signs: Vital Signs: Last Vital Signs Temp 96.3 F L 01/12/22 08:00 Pulse 62 01/12/22 08:00 Resp 16 01/12/22 08:00 BP 128/68 01/12/22 08:00 Pulse Ox 97 01/12/22 08:00 O2 Del Method 01/12/22 08:00 BMI result Body Mass Index 24.0 Const: Other: no acute distress Resp: Other: clear to auscultation bilaterally no rales rhonchi or wheezes Cardio: Other: no S4; positive S1-S2; no S3 murmurs rubs or gallops GI: Other: soft nontender nondistended normoactive bowel sounds x4 Skin: Other: right lower extremity wounds essentially unchanged from admission photo Extrem: Other: no edema bilaterally DS: Data Data Completed and Pending Completed studies during hospitalization [Text1]: Procedures Detoxification Services for Substance Abuse Treatment (11/28/20) Labs on day of discharge: Laboratory Results - last 24 hr 01/11/22 01/12/22 01/12/22 10:59 04:45 04:45 WBC 7.1 RBC 4.25 L Hgb 10.4 L Hct 33.8 L MCV 79.5 L MCH 24.5 L MCHC 30.8 L RDW 15.9 Plt Count 157 L MPV 9.4 Immature Gran % (Auto) 0.3 Neut % (Auto) 57.1 Lymph % (Auto) 22.4 [place] % (Auto) 11.9 H Eos % (Auto) 7.7 H Baso % (Auto) 0.6 Lymph # (Auto) 1.6 [place] # (Auto) 0.8 Eos # (Auto) 0.5 H Baso # (Auto) 0.0 Abs Immat Gran (auto) 0.02 Absolute Neuts (auto) 4.0 Absolute Nucleated RBC 0.000 Nucleated RBC % (auto) 0.0 Sodium Potassium Chloride Carbon Dioxide Anion Gap BUN Creatinine Estim Creat Clear Calc Estimated GFR Fasting Glucose Calcium Total Bilirubin AST ALT Alkaline Phosphatase Total Protein Albumin Vancomycin Trough 8.6 L 11.0 01/12/22 04:45 WBC RBC Hgb Hct MCV MCH MCHC RDW Plt Count MPV Immature Gran % (Auto) Neut % (Auto) Lymph % (Auto) [place] % (Auto) Eos % (Auto) Baso % (Auto) Lymph # (Auto) [place] # (Auto) Eos # (Auto) Baso # (Auto) Abs Immat Gran (auto) Absolute Neuts (auto) Absolute Nucleated RBC Nucleated RBC % (auto) Sodium 137 Potassium 4.0 Chloride 107 Carbon Dioxide 24 Anion Gap 10 L BUN 23 H Creatinine 0.96 Estim Creat Clear Calc 74.2 Estimated GFR > 60 Fasting Glucose 98 Calcium 8.3 L Total Bilirubin 0.6 AST 36 ALT 21 Alkaline Phosphatase 112 Total Protein 7.0 Albumin 2.6 L Vancomycin Trough Preliminary micro results at discharge 01/10/22 18:30 Blood Culture - Preliminary Blood - Venous No growth after 24 hours. 01/10/22 18:11 Blood Culture - Preliminary Blood - Venous No growth after 24 hours. Discharge Plan Discharge Patient Disposition: Home Health Service Discharge Diagnosis: bilateral lower extremity venous stasis ulcers Referrals: Physician,Unknown J [Primary Care Provider] - 1 Week Discharge Medications: New amoxicillin-pot clavulanate 875-125 mg tablet 1 tab PO BID Qty: 28 0RF doxycycline hyclate 100 mg tablet 100 mg PO BID 14 Days Qty: 28 0RF Continued methadone 10 mg/mL Concentrate 70 mg PO DAILY Discharge Orders: Discharge Order (Routine); Ordered 01/12/22 Ordered By: Miah Marie Diet: advance to usual diet Activity on Discharge: As tolerated Stand Alone Forms: Patient Portal Discharge page Care Plan Goals: complete antibiotics as ordered. Both antibiotics or twice daily for 2 weeks Health Concerns: follow-up with PCP 2 weeks; make appointment with Dr. Birmingham in office. very important to keep his appointment Plan of Treatment: VNA to change dressings daily for 1 week Assessment: as per discharge summary
--- NOTE | 2022-01-12 10:33 | P.F2F_ITS ---
Service Date Service Date: 01/12/22 Encounter Date of encounter: 01/12/22 Encounter: inpatient hospitalization Reasons for Services Signs and symptoms assessed: will require nursing care for wound management and medication monitoring Reason for senior care: wound care, medication management and teach disease management Homebound: Leaving the home is medically contraindicated at this time without the asist of a device and/or another person due th the listed conditions above and below. Reason homebound: leg weakness and pain with ambulation Certification: Based on the above findings, I certify that this patient is confined to the home and needs intermittent senior care care, physical therapy and/or speech therapy, or continues to need occupational therapy. The patient is under my care, and I have initiated the establishment of the plan of care. The patient will be followed by a physician who will periodically review the plan of care.
--- NOTE | 2022-01-12 10:33 | P.PNVS_ITS ---
Subjective Subjective Date of Service: 01/12/22 Patient reports: no new complaints and feels better Interval history: Patient seen and examined. Events over the past 24 hours reviewed. No significant difficulty. Of note he has had MRI which was negative for osteo. He has been doing well with his leg ulcers since admission. Physical Exam Vital Signs: Vital Signs: Last Vital Signs Temp 96.3 F L 01/12/22 08:00 Pulse 62 01/12/22 08:00 Resp 16 01/12/22 08:00 BP 128/68 01/12/22 08:00 Pulse Ox 97 01/12/22 08:00 O2 Del Method 01/12/22 08:00 BMI result Body Mass Index 24.0 Const: General: cooperative, healthy appearing and no acute distress Orientation/consciousness: oriented to person, oriented to place and oriented to time HEENT: Head: Yes normal to inspection Neck: Carotids: no bruits Chest: Chest palpation & inspection: normal inspection of the chest Resp: Effort & Inspection: normal respiratory effort and able to speak in complete sentences Auscultation: clear to auscultation bilaterally Cardio: Rate: regular rate Heart sounds: S1 normal heart sound present and S2 normal heart sound present GI: Inspection: Yes normal to inspection Skin: Other: Evidence of venous stasis with active ulceration General skin exam: no rashes or lesions noted Wounds: wounds noted (Bilateral pretibial ulcers) Neuro: General: oriented to person, oriented to place, oriented to time and CN's II-XI intact bilaterally Extrem: General: Yes normal to inspection, Yes full ROM and Yes no clubbing, cyanosis or edema Psych: Appearance: grossly normal and well kempt Speech and movement: Nor mal speech and movement present Affect: normal affect Progress Note: A&P Assessment and plan (1) Venous stasis ulcer: Status: Acute Assessment and Plan: In short patient has venous stasis ulcers. We have seen this on him before with venous reflux testing. He has failed to show up as an outpatient. I did discuss with him the importance of compliance and follow-up in order to prevent recurrence of these ulcers. His MRI is negative for osteo. Stable from my perspective for discharge. He can follow up with us as an outpatient. Thank you for allowing us to assist in his care. If there are any questions or josé manuel rns please do not hesitate to contact us. Time Spent With Patient Time: Total time spent is greater than 50% in coordination of care (as documented) at patient's floor/unit and/or counseling patient: Procedures Date of Service Date of Service: 01/12/22 Quality Stroke Does the patient have a stroke diagnosis?: No VTE Prior VTE?: No VTE Risk Level:: Medical - moderate - high VTE Device Contraindication: Treatment Not Indicated VTE Drug Contraindication: N/A - Med Ordered
== END 2022-01-12 13:42 | disposition home or self-care (01) | DRG 300 ==
LOC: HO.ED 18:22 → HO.EDOVER 21:05 → HO.S3 01-11 00:07
PROVIDERS: Physician Assistant; Admitting Provider Hospitalist; Emergency Provider Internal Medicine; Visit Provider Hospitalist
DX: I87.311 Chronic venous hypertension (idiopathic) with ulcer of right lower extremity (principal); F11.20 Opioid dependence, uncomplicated; L03.115 Cellulitis of right lower limb; L97.812 Non-pressure chronic ulcer of other part of right lower leg with fat layer exposed; Z20.822 Contact with and (suspected) exposure to COVID-19; F17.210 Nicotine dependence, cigarettes, uncomplicated; Z71.6 Tobacco abuse counseling; F19.10 Other psychoactive substance abuse, uncomplicated; Z86.19 Personal history of other infectious and parasitic diseases
CPT/HCPCS: 36415; 73590; 73620; 73720; 80048; 80053; 80202; 83605; 85025; 85652; 86140; 87040; 87635; 96361; 96365; 96375; 99285; A9585; J1650; J2543; J3370

== ENCOUNTER 2022-01-27 12:02 | Inpatient (IN) | payer MEDICARE, MEDICAID, SELFPAY ==
--- NOTE | ~2022-01-27 | CT_ITS ---
EXAMINATION: CT OF THE BRAIN WITHOUT CONTRAST CT OF THE CERVICAL SPINE WITHOUT CONTRAST CLINICAL INDICATION: Trauma. COMPARISON: CT brain comparison is made to previous dated 08/18/2016. TECHNIQUE: Axial imaging with coronal and sagittal reformatted images. This CT examination was performed using dose optimization techniques as appropriate, variously including the following: *Automated exposure control *Adjustment of mA and/or kV according to patient size (this includes techniques or standardized protocols for targeted exams where dose is matched to indication/reason for exam; i.e. extremities or head) *Use of iterative reconstruction technique. DLP: 736 and 382 mGy-cm FINDINGS: CT BRAIN: There is no midline shift. There is no mass effect. There is no hemorrhage. The basilar cisterns appear patent. The posterior fossa is grossly within normal limits. There is no extra-axial collection. Ventricles are fairly well preserved. Edwards-white matter appears fairly well preserved. Some probable scattered areas of white matter ischemic changes. The bone windows demonstrate no evidence of fracture. CT CERVICAL SPINE: Motion degrades imaging in the lower cervical region. There is grade 1 anterolisthesis of C3 on C4. There are degenerative changes and these appear most significant in the articulating facets of C2-C3 and C3-C4. It would be difficult to exclude a fracture at the C3-C4 articulation on the left. There is a bony fragment emanating into the neural foramen at this level. There is lucency between this bony fragment and the parent bone There is also degeneration at C6-C7. CT/CT cervical spine wo con IMPRESSION: Negative acute noncontrast CT of the brain. In the cervical spine there is anterolisthesis of C3 on C4 and degenerative changes in the left-sided facets which appear significant and in addition a free bony fragment is seen which is emanating into the exiting neural foramen at this level and I cannot exclude an acute fracture superimposed on chronic degeneration. This critical result was discussed with Cathleen Wiggins at 1:30 PM on 01/27/2022. and it was ascertained that the content and urgency of the report was understood at the time of direct communication.
--- NOTE | ~2022-01-27 | US_ITS ---
EXAMINATION: US VENOUS ULTRASOUND WITH DOPPLER LOWER EXTREMITY, RIGHT CLINICAL INFORMATION: Right lower extremity swelling, redness and warmth COMPARISON: None TECHNIQUE: Ultrasound of the deep veins is performed from the hip to the calf with compression sonography and color and pulse Doppler assessment. Spectral analysis with color-flow imaging is performed. FINDINGS: There is normal venous compression and respiratory variation and augmented flow. The visualized common femoral vein, superficial femoral vein, profunda femoral vein, popliteal vein, and the trifurcation region shows no evidence of deep venous thrombosis. There is no significant popliteal fossa cyst. Multiple enlarged lymph nodes are present in the right groin with normal fatty antonieta. The largest measures 3.5 x 1.7 x 2.0 cm. The contralateral left common femoral vein appears normal. If the patient's symptoms persist, followup ultrasound in 5 days 7 days might be of value to exclude proximal propagation from a non-visualized calf vein. US/US venous duplex LE RT IMPRESSION: No DVT demonstrated in the right lower extremity. Multiple enlarged right groin lymph nodes are present.
--- NOTE | ~2022-01-27 | XR_ITS ---
EXAMINATION: XR SHOULDER, RIGHT CLINICAL INFORMATION: Status post fall. Pain. COMPARISON: None TECHNIQUE: Two views of the right shoulder. FINDINGS: The cephalic migration of humeral head in relation to glenoid suggestive of RC degeneration or tear. There is no visible acute fracture, dislocation or subluxation. Mild loss of AC joint space with inferior spurring noted. The soft tissues are normal. XR/XR shoulder RT min 2V IMPRESSION: Mild cephalic migration of right humeral head in relation to glenoid likely rotator cuff degeneration or tear.. No visible acute fracture or dislocation seen. Mild DJD AC joint.
--- NOTE | ~2022-01-27 | XR_ITS ---
EXAMINATION: XR TIBIA AND FIBULA, RIGHT CLINICAL INFORMATION: Right leg findings COMPARISON: Right tib-fib 01/10/2022 as well as films dating back to 07/08/2019 TECHNIQUE: AP and lateral views of the right tibia and fibula were obtained. FINDINGS: There is a soft tissue defect seen posteriorly consistent with patient's chronic wounds. No underlying bone destruction is seen to suggest osteomyelitis. Some chronic periosteal thickening is present in the region which was not present on the 07/08/2019 study. XR/XR tibia fibula RT 2V IMPRESSION: Soft tissue wound/defects without evidence of osteomyelitis. There is chronic periosteal thickening. If there is clinical concern, MRI would be more useful.
[2022-01-27 12:17] VITALS: BP 118/68; PULSE 85; O2SAT 97
[2022-01-27 12:22] VITALS: BP 108/58; BP 118/78; PULSE 75; PULSE 85; RESP 16; TEMP 37.1; O2SAT 98; BMI 27.3
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
[2022-01-27 13:16] VITALS: PULSE 74; RESP 16; O2SAT 97
[2022-01-27] MEDS: 0.9 % Sodium Chloride 1,000 ML 999 ML IVCONT (13:16)
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
[2022-01-27 13:24] LABS: Basophils Absolute Auto 0.1 X10*3/uL (0.0-0.2); Basophils Percent Auto 0.4 % (0-2); Eosinophils Absolute Auto 0.1 X10*3/uL (0.0-0.4); Eosinophils Percent Auto 0.5 % (0-4); Hematocrit 29.7 % (42.0-52.0); Hemoglobin 9.5 g/dl (14.0-18.0); Imm Gran Abs Auto 0.26 X10*3/uL (0.00-0.03); Imm Gran Pct Auto 1.1 % (0.0-0.4); Lymphocytes Absolute Auto 1.5 X10*3/uL (1.2-4.9); Lymphocytes Percent Auto 6.5 % (20-40); MANUAL DIFF FLAG SCAN; Mean Corpuscular Hemoglobin 24.5 pg (27.0-33.0); Mean Corpuscular Volume 76.5 fL (80.0-98.0); Mean Platelet Volume 10.3 fL (9.4-12.4); Monocytes Absolute Auto 2.2 X10*3/uL (0.1-1.2); Monocytes Percent Auto 9.5 % (2-11); Neutrophils Absolute Auto 18.7 x10*3/uL (2.0-8.3); Platelet Count 153 X10*3/uL (160-400); Red Blood Count 3.88 X10*6/uL (4.60-5.80); Red Cell Distribution Width 15.9 % (11.0-16.0); SCAN SMEAR FLAG 1; White Blood Count 22.8 X10*3/uL (4.8-10.8)
[2022-01-27 13:29] LABS: INTERNATIONAL NORM RATIO 1.5 (0.9-1.1)
[2022-01-27 13:31] LABS: Partial Thromboplastin Time 46.2 SEC (24.1-38.0)
[2022-01-27 13:37] LABS: Ethanol < 10 mg/dL
[2022-01-27 13:41] LABS: Alanine Aminotransferase 37 U/L (0-40); Albumin Level 2.5 g/dL (3.5-5.0); Alkaline Phosphatase 112 U/L (39-117); Anion Gap 9 (12-20); Aspartate Amino Transferase 49 U/L (5-37); B Type Natriuretic Peptide 183 pg/mL (<100); Bilirubin Direct 0.6 mg/dL (0.0-0.5); Bilirubin Total 0.9 mg/dL (0.0-1.0); Blood Urea Nitrogen 21 mg/dL (9-16); C Reactive Protein 10.38 mg/dL (< or = 0.50); Calcium 7.9 mg/dL (8.4-10.2); Carbon Dioxide 26 mmol/L (22-29); Chloride 99 mmol/L (96-108); Creatinine Clr Calc Pharmacy 76.7; Estimated Glomerular Filt Rate > 60; Glucose Random 122 mg/dL (60-115); Magnesium 1.7 mg/dL (1.6-2.6); Potassium 3.5 mmol/L (3.3-5.1); Sodium 130 mmol/L (135-145); Total Protein 6.8 g/dL (6.5-8.0)
[2022-01-27 13:42] LABS: COVID-19 Test Negative (Negative); IDNOW Serial# 9DB6401D
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
[2022-01-27 13:49] LABS: SLIDE REVIEW VERIFIED
[2022-01-27 13:59] LABS: Erythrocyte Sedimentation Rate 45 MM/HR (0-15)
[2022-01-27] MEDS: Piperacillin Sodium/Tazobactam 3.375 GM in 0.9 % Sodium Chloride 50 ML IV ×2 (14:31→21:14)
[2022-01-27 14:36] VITALS: BP 110/56; PULSE 76; RESP 16; O2SAT 99
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
--- NOTE | 2022-01-27 15:43 | PHA.PROG ---
Admission Date/Time: January 27, 2022 15:01 Indication: cellulitis Weight in k.915 kg Adjusted body weight in K kg Ferguson body weight in K.7 kg Obesity Dosing Indication % IBW: Serum Creatinine - Last 168 Hours 01/27/22 13:12 Creatinine 0.96 Estimated CrCl and GFR - Last 168 Hours 01/27/22 13:12 Estim Creat Clear Calc 76.7 Estimated GFR > 60 Vancomycin Loading Dose: 2000 mg x 1 Current Vancomycin Dosing Regimen: 1000 mg q12h Vancomycin Monitoring using AUC goal of 400 - 600 range with trough as surrogate marker: predicted auc of 545 Date and Time for next Vancomycin Level to be drawn: 01/28/22 @1300 (random) Pharmacist Comments on Vancomycin Plan: random level before 3rd dose so that trough would not be in the middle of the night when pharmacy not here. Vancomycin dosing will take advantage of [email or web address] as a clinical decision support tool that uses Bayesian modeling to calculate individual patient's pharmacokinetic parameters and forecast the patient's drug concentration time course with the target goal AUC 24 range of 400 - 600 mg/L/hr.
[2022-01-27] MEDS: Enoxaparin Sodium 40 MG/0.4 ML SYRINGE SUBCUT (15:47)
[2022-01-27 16:22] VITALS: BP 129/59; PULSE 69; RESP 15; TEMP 36.7; O2SAT 99
[2022-01-27 16:38] LABS: Appearance Urine CLEAR; Color Urine DK YELLOW; Glucose Urine UA NEG (NEG); Leukocyte Esterase Urine NEG (NEG); Nitrite Urine NEG (NEG); Specific Gravity - Urine 1.015 (1.005-1.025); UACC Culture Trigger NO; Urine Blood TRACE (NEG); Urine Ketones NEG (NEG); Urine Protein NEG (NEG-TRACE)
[2022-01-27 16:43] LABS: Amphetamine Screen Urine Not Detected (Not Detect); Barbiturates, Urine Not Detected (Not Detect); Benzodiazepines Screen Urine Not Detected (Not Detect); Cannabinoid Screen Urine Not Detected (Not Detect); Cocaine Screen Urine POSITIVE (Not Detect); Fentanyl, urine POSITIVE (Not Detect); Opiate Screen Urine POSITIVE (Not Detect); Phencyclidine Screen Urine Not Detected (Not Detect)
[2022-01-27 17:01] LABS: WBC Urine 0-2 /HPF (0-4)
[2022-01-27 17:02] LABS: Bacteria Urine TRACE /LPF; Mucus Urine TRACE /LPF; Squamous Epithelial Cell Urine TRACE /LPF
[2022-01-28] MEDS: Acetaminophen 325 MG TABLET 650 MG PO ×2 (00:03→16:25)
[2022-01-28] MEDS: 0.9 % Sodium Chloride Flush 3 ML SYRINGE IVFLUSH ×3 (00:04→16:30)
[2022-01-28] MEDS: Piperacillin Sodium/Tazobactam 3.375 GM in 0.9 % Sodium Chloride 50 ML IV ×4 (02:44→21:43)
[2022-01-28 03:18] VITALS: BP 107/51; PULSE 71; RESP 16; TEMP 37.2; O2SAT 95
[2022-01-28] MEDS: vancomycin HCL 1,000 MG in 0.9 % Sodium Chloride 250 ML 270 MG IV ×2 (03:40→16:29)
[2022-01-28 07:19] LABS: Anion Gap 10 (12-20); Blood Urea Nitrogen 15 mg/dL (9-16); Calcium 7.6 mg/dL (8.4-10.2); Carbon Dioxide 23 mmol/L (22-29); Chloride 106 mmol/L (96-108); Creatinine Clr Calc Pharmacy 73.6; Estimated Glomerular Filt Rate > 60; Glucose Random 116 mg/dL (60-115); Potassium 3.3 mmol/L (3.3-5.1); Sodium 136 mmol/L (135-145)
[2022-01-28] MEDS: methADONE HCl 20 MG/2 ML ORAL.CONC 70 MG PO (08:28)
--- NOTE | 2022-01-28 08:54 | PC.NURSE ---
pt's legs red, swollen, warm to touch, copious amount of yellow drainage noted, he report pain with movement. morning meds given as documented, breakfast given, urinal emptied x2 totalling 950 cc. pt resting quietly, no apparent distress.
--- NOTE | 2022-01-28 10:03 | HO.PM.IMPN ---
Subjective Subjective Date of Service: 01/28/22 Interval History: complaining of right shoulder pain, and also complaining of burning pain right calf, denies fever chills, tolerating diet denies nausea vomiting no abdominal pain, no diarrhea, no other acute issues overnight. Review of Systems [employer] no headache no dizziness musculoskeletal right shoulder pain, worse with movement no dysuria, no frequency Review of Systems: Yes all other systems are reviewed and are negative Physical Exam Vital Signs: Vital Signs: Last Vital Signs Temp 99.0 F 01/28/22 03:18 Pulse 71 01/28/22 03:18 Resp 16 01/28/22 03:18 BP 107/51 L 01/28/22 03:18 Pulse Ox 95 01/28/22 03:18 O2 Del Method 01/28/22 03:18 BMI result Body Mass Index 27.3 Const: Other: General? awake alert x3, resting comfortably in no acute distress.? Neck? supple, no JVD. CVS? regular rate rhythm, systolic murmur Respiratory lungs clear to auscultation, no respiratory distress, no wheeze, no rhonchi. Gastrointestinal abdomen soft, nontender, bowel sounds audible, no guarding , no rigidity. Extremities? mild improvement in right lower extremity swelling, persistent erythema with multiple open ulcers no drainage noted, localized to lower leg. right shoulder no swelling, no hematoma or bruising limited range of movement Neuro nonfocal , speech clear. psych appropriate affect skin multiple dry scabs both upper extremities Objective Data Active Medications Acetaminophen (Acetaminophen 325 Mg Tablet) 650 mg PO Q6H PRN PRN Reason: Pain, Mild (Pain Scale 1-3) Last Admin: 01/28/22 00:03 Dose: 650 mg Documented By: SAMIRA Enoxaparin Sodium (Enoxaparin Sodium 40 Mg/0.4 Ml Syringe) 40 mg SUBCUT Q24H [facility] Last Admin: 01/27/22 15:47 Dose: 40 mg Documented By: CHERYL Piperacillin Sod/Tazobactam (Sod 3.375 gm/ Sodium Chloride) 50 mls @ 100 mls/hr IV Q6H [facility] Last Infusion: 01/28/22 08:28 Dose: 0 mls/hr Documented By: NIRMAL Vancomycin HCl 1,000 mg/ (Sodium Chloride) 270 mls @ 270 mls/hr IV Q12H [facility] Last Infusion: 01/28/22 04:50 Dose: 0 mls/hr Documented By: NICK Melatonin (Melatonin 3 Mg Tablet) 6 mg PO BEDTIME PRN PRN Reason: Insomnia Methadone HCl (Methadone Hcl 20 Mg/2 Ml Oral.Conc) 70 mg PO DAILY [facility] Last Admin: 01/28/22 08:28 Dose: 70 mg Documented By: NIRMAL Ondansetron HCl (Ondansetron Hcl 4 Mg/2 Ml Vial) 4 mg IVPUSH Q8H PRN PRN Reason: Nausea and Vomiting Pharmacy Consult (Consult Rx Perform Med Rec) 1 each MISCELLANE ONCE PRN PRN Reason: Consult order Pharmacy Consult (Consult Rx Vancomycin Dosing) 1 each MISCELLANE DAILY PRN PRN Reason: Consult order Sodium Chloride (0.9 % Sodium Chloride Flush 3 Ml Syringe) 3 ml IVFLUSH QSHIFT [facility] Last Admin: 01/28/22 07:29 Dose: 3 ml Documented By: NIRMAL Labs CBC & Chem 7: 01/27/22 13:12 01/28/22 06:13 Labs: Laboratory Results - last 24 hr 01/27/22 01/27/22 01/27/22 13:12 13:12 13:12 MCV 76.5 L MCH 24.5 L MCHC 32.0 RDW 15.9 Plt Count 153 L MPV 10.3 Immature Gran % (Auto) 1.1 H Neut % (Auto) 82.0 H Lymph % (Auto) 6.5 L [place] % (Auto) 9.5 Eos % (Auto) 0.5 Baso % (Auto) 0.4 Lymph # (Auto) 1.5 [place] # (Auto) 2.2 H Eos # (Auto) 0.1 Baso # (Auto) 0.1 Abs Immat Gran (auto) 0.26 H Absolute Neuts (auto) 18.7 H Absolute Nucleated RBC 0.000 Nucleated RBC % (auto) 0.0 Smear Tech's Comments VERIFIED ESR 45 H PT 17.0 H INR 1.5 H APTT 46.2 H Anion Gap Estim Creat Clear Calc Estimated GFR Random Glucose Lactic Acid Calcium Magnesium Total Bilirubin Direct Bilirubin AST ALT Alkaline Phosphatase Total Creatine Kinase C-Reactive Protein B-Natriuretic Peptide Total Protein Albumin Urine Color Urine Appearance Urine pH Ur Specific [place] Urine Protein Urine Glucose (UA) Urine Ketones Urine Blood Urine Nitrite Ur Leukocyte Esterase Urine RBC Urine WBC Ur Squamous Epith Cells Urine Bacteria Urine Mucus Urine Opiates Screen Urine Fentanyl Screen Ur Barbiturates Screen Ur Phencyclidine Scrn Ur Amphetamines Screen U Benzodiazepines Scrn Urine Cocaine Screen U Marijuana (THC) Screen Ethyl Alcohol COVID-19 (JACQUE) COVID-19 Clin Com 01/27/22 01/27/22 01/27/22 13:12 13:12 13:12 MCV MCH MCHC RDW Plt Count MPV Immature Gran % (Auto) Neut % (Auto) Lymph % (Auto) [place] % (Auto) Eos % (Auto) Baso % (Auto) Lymph # (Auto) [place] # (Auto) Eos # (Auto) Baso # (Auto) Abs Immat Gran (auto) Absolute Neuts (auto) Absolute Nucleated RBC Nucleated RBC % (auto) Smear Tech's Comments ESR PT INR APTT Anion Gap 9 L Estim Creat Clear Calc 76.7 Estimated GFR > 60 Random Glucose 122 H Lactic Acid 1.0 Calcium 7.9 L Magnesium 1.7 Total Bilirubin 0.9 Direct Bilirubin 0.6 H AST 49 H ALT 37 Alkaline Phosphatase 112 Total Creatine Kinase C-Reactive Protein 10.38 H B-Natriuretic Peptide 183 H Total Protein 6.8 Albumin 2.5 L Urine Color Urine Appearance Urine pH Ur Specific [place] Urine Protein Urine Glucose (UA) Urine Ketones Urine Blood Urine Nitrite Ur Leukocyte Esterase Urine RBC Urine WBC Ur Squamous Epith Cells Urine Bacteria Urine Mucus Urine Opiates Screen Urine Fentanyl Screen Ur Barbiturates Screen Ur Phencyclidine Scrn Ur Amphetamines Screen U Benzodiazepines Scrn Urine Cocaine Screen U Marijuana (THC) Screen Ethyl Alcohol COVID-19 (JACQUE) COVID-19 Clin Com 01/27/22 01/27/22 01/27/22 13:12 13:12 13:12 MCV MCH MCHC RDW Plt Count MPV Immature Gran % (Auto) Neut % (Auto) Lymph % (Auto) [place] % (Auto) Eos % (Auto) Baso % (Auto) Lymph # (Auto) [place] # (Auto) Eos # (Auto) Baso # (Auto) Abs Immat Gran (auto) Absolute Neuts (auto) Absolute Nucleated RBC Nucleated RBC % (auto) Smear Tech's Comments ESR PT INR APTT Anion Gap Estim Creat Clear Calc Estimated GFR Random Glucose Lactic Acid Calcium Magnesium Total Bilirubin Direct Bilirubin AST ALT Alkaline Phosphatase Total Creatine Kinase 285 H C-Reactive Protein B-Natriuretic Peptide Total Protein Albumin Urine Color Urine Appearance Urine pH Ur Specific [place] Urine Protein Urine Glucose (UA) Urine Ketones Urine Blood Urine Nitrite Ur Leukocyte Esterase Urine RBC Urine WBC Ur Squamous Epith Cells Urine Bacteria Urine Mucus Urine Opiates Screen Urine Fentanyl Screen Ur Barbiturates Screen Ur Phencyclidine Scrn Ur Amphetamines Screen U Benzodiazepines Scrn Urine Cocaine Screen U Marijuana (THC) Screen Ethyl Alcohol < 10 COVID-19 (JACQUE) Negative COVID-19 Clin Com See Note 01/27/22 01/27/22 01/28/22 16:21 16:21 06:13 MCV MCH MCHC RDW Plt Count MPV Immature Gran % (Auto) Neut % (Auto) Lymph % (Auto) [place] % (Auto) Eos % (Auto) Baso % (Auto) Lymph # (Auto) [place] # (Auto) Eos # (Auto) Baso # (Auto) Abs Immat Gran (auto) Absolute Neuts (auto) Absolute Nucleated RBC Nucleated RBC % (auto) Smear Tech's Comments ESR PT INR APTT Anion Gap 10 L Estim Creat Clear Calc 73.6 Estimated GFR > 60 Random Glucose 116 H Lactic Acid Calcium 7.6 L Magnesium Total Bilirubin Direct Bilirubin AST ALT Alkaline Phosphatase Total Creatine Kinase 87 D C-Reactive Protein B-Natriuretic Peptide Total Protein Albumin Urine Color DK YELLOW Urine Appearance CLEAR Urine pH 6.0 Ur Specific [place] 1.015 Urine Protein NEG Urine Glucose (UA) NEG Urine Ketones NEG Urine Blood TRACE Urine Nitrite NEG Ur Leukocyte Esterase NEG Urine RBC 5-9 H Urine WBC 0-2 Ur Squamous Epith Cells TRACE Urine Bacteria TRACE Urine Mucus TRACE Urine Opiates Screen POSITIVE H Urine Fentanyl Screen POSITIVE H Ur Barbiturates Screen Not Detected Ur Phencyclidine Scrn Not Detected Ur Amphetamines Screen Not Detected U Benzodiazepines Scrn Not Detected Urine Cocaine Screen POSITIVE H U Marijuana (THC) Screen Not Detected Ethyl Alcohol COVID-19 (JACQUE) COVID-19 Clin Com Assessment and Plan (1) Opioid use disorder: Status: Acute (2) Venous stasis ulcer: Status: Acute (3) Cellulitis: Status: Acute (4) Polysubstance abuse: Status: Acute Plan 66-year-old male with past medical history of chronic bilateral venous stasis ulcers a history of noncompliance was recently discharged from [facility] on 14 days of Augmentin and doxycycline however patient did not finish the course of antibiotic and returned to [facility] with worsening right lower extremity swelling pain and persistent open ulcers ?Right lower extremity cellulitis /with multiple venous stasis ulcers has chronic ulcers, noncompliant with followups and medications continue IV vancomycin and Zosyn day 2 leukocytosis follow CBC and blood cultures ?recent MRI right leg showed no definite osteomyelitis/ CRP 10.38, bumped from last CRP of 2.91 January 10 ?keep right leg elevated follow ID/vascular surgery consultation right lower extremity venous duplex negative, tubular fibular x-ray showed soft tissue defects without evidence of osteomyelitis and chronic periosteal thickening opioid use disorder continue methadone home dose active IV drug use, follow Addiction Team consult ?mild hyponatremia sodium improved from 130,to 136 likely hypovolemic hyponatremia resolved ?hepatitis C outpatient GI follow-up elevated CK 285 likely due to fall normalized with ivf Mech fall with right shoulder pain use analgesics prn,no swelling/no hematoma code status full code DVT prophylaxis with Lovenox patient need continued inpatient hospitalization due to extensive right lower extremity cellulitis and open ulcers , concern for osteomyelitis. Quality Stroke Does the patient have a stroke diagnosis?: No VTE Prior VTE?: No VTE Risk Level:: Medical - moderate - high VTE Device Contraindication: Treatment Not Indicated VTE Drug Contraindication: N/A - Med Ordered
--- NOTE | 2022-01-28 10:41 | P.CONGS_ITS ---
History of Present Illness Consult details Consult date: 01/28/22 Reason for consult: wound care Narrative: Complex 66-year-old gentleman well known to me with recurrent right lower extremity venous stasis ulcers. He has been seen and treated almost a month prior and now presents for repeat evaluation as he has developed cellulitis of that right lower extremity. Of note he has a history opioid abuse COVID-19 infection and polysubstance abuse. In addition he does smoke. He now presents for hospital evaluation regarding his right lower extremity. Review of Systems Constitutional: Constitutional: Reports as per HPI ENT: Reports system reviewed and no additional complaints, except as documented Cardiovascular: Cardiovascular: Denies chest pain, Denies chest pain at rest and Denies chest pain with activity Respiratory: Respiratory: Denies chest congestion and Denies cough Gastrointestinal: Gastrointestinal: Reports no additional gastrointestinal complaints Musculoskeletal: Musculoskeletal: Denies abnormal gait Integumentary/Breasts: Skin/Breast: Reports pruritus and Denies wounds Neurologic: Reports system reviewed and no additional complaints, except as documented and Denies abnormal gait Psychiatric: Psychiatric: Denies no additional psychiatric complaints PMFSH Past Medical History Medical History Anemia Cellulitis Cellulitis Chronic cutaneous venous stasis ulcer Cirrhosis Depression Hepatitis C Infected wound Opioid use disorder Varicose veins of right lower extremity with inflammation Family History Family History Mother CAD (coronary artery disease) ESRD (end stage renal disease) Brother Liver failure Surgical History Surgical History H/O hernia repair Social History Social History Household Members: None Household Members Other:: Currently residing in a rehab facility Housing: Apartment Housing Other:: Currently residing in a rehab facility Do you presently have visiting nurse or other home services: No Alcohol intake: never Patient Tobacco Use Status: Never used Tobacco Tobacco use type: Cigarette Cigarettes Per Day: 2 Years Smoked: 40 e-Cigarette/Vaping Use: Never Used Second Hand Smoke Exposure: Yes Use of substances other than those prescribed or required for medical reasons: Yes Substance Use Type: Heroin Advance Directives: Yes Advance Directives on File: Yes Advance Directives Date on File: 02/11/21 service: No Current occupational status: disabled Meds Allergies Allergy/AdvReac Type Severity Reaction Status Date / Time trazodone [TRAZODONE] Allergy Intermediate RESTLESS Verified 03/10/21 00:45 LEGS Active Medications: Current Medications Acetaminophen (Acetaminophen 325 Mg Tablet) 650 mg PO Q6H PRN PRN Reason: Pain, Mild (Pain Scale 1-3) Last Admin: 01/28/22 00:03 Dose: 650 mg Enoxaparin Sodium (Enoxaparin Sodium 40 Mg/0.4 Ml Syringe) 40 mg SUBCUT Q24H [facility] Last Admin: 01/27/22 15:47 Dose: 40 mg Piperacillin Sod/Tazobactam (Sod 3.375 gm/ Sodium Chloride) 50 mls @ 100 mls/hr IV Q6H [facility] Last Infusion: 01/28/22 08:28 Dose: Infused Vancomycin HCl 1,000 mg/ (Sodium Chloride) 270 mls @ 270 mls/hr IV Q12H [facility] Last Infusion: 01/28/22 04:50 Dose: Infused Melatonin (Melatonin 3 Mg Tablet) 6 mg PO BEDTIME PRN PRN Reason: Insomnia Methadone HCl (Methadone Hcl 20 Mg/2 Ml Oral.Conc) 70 mg PO DAILY [facility] Last Admin: 01/28/22 08:28 Dose: 70 mg Ondansetron HCl (Ondansetron Hcl 4 Mg/2 Ml Vial) 4 mg IVPUSH Q8H PRN PRN Reason: Nausea and Vomiting Pharmacy Consult (Consult Rx Perform Med Rec) 1 each MISCELLANE ONCE PRN PRN Reason: Consult order Pharmacy Consult (Consult Rx Vancomycin Dosing) 1 each MISCELLANE DAILY PRN PRN Reason: Consult order Sodium Chloride (0.9 % Sodium Chloride Flush 3 Ml Syringe) 3 ml IVFLUSH QSHIFT [facility] Last Admin: 01/28/22 07:29 Dose: 3 ml Home Medications Medication Instructions Recorded Confirmed Last Taken Type methadone 10 mg/mL oral concentrate 70 mg PO DAILY 01/10/22 01/27/22 01/10/22 History Physical Exam Vital Signs: Vital Signs: Last Vital Signs Temp 99.0 F 01/28/22 03:18 Pulse 71 01/28/22 03:18 Resp 16 01/28/22 03:18 BP 107/51 L 01/28/22 03:18 Pulse Ox 95 01/28/22 03:18 O2 Del Method 01/28/22 03:18 BMI result Body Mass Index 27.3 Const: General: cooperative, healthy appearing and comfortable Orientation/consciousness: oriented to person, oriented to place and oriented to time Neck: Carotids: no bruits Chest: Chest palpation & inspection: normal inspection of the chest and normal palpation of entire chest wall Resp: Effort & Inspection: normal respiratory effort and able to speak in complete sentences Cardio: Rate: regular rate Heart sounds: S1 normal heart sound present and S2 normal heart sound present Peripheral pulses: Peripheral pulses 2+ throughout GI: Inspection: Yes normal to inspection Skin: Other: +2 edema, ulcers right pretibial surface and calf. CEAP Classification C6 - active ulceration Ep - Etiology Primary As - superficial veins P - reflux General skin exam: dry skin Neuro: General: oriented to person, oriented to place and oriented to time Extrem: Right lower extremity: full ROM, normal capillary refill and edema Left lower extremity: full ROM, normal capillary refill and edema Psych: Mental Status: mental status grossly normal Results Labs Result diagrams: 01/27/22 13:12 01/28/22 06:13 Labs: Abnormal lab results 01/27/22 01/27/22 01/27/22 Range/Units 13:12 13:12 13:12 WBC 22.8 H (4.8-10.8) X10*3/uL RBC 3.88 L (4.60-5.80) X10*6/uL Hgb 9.5 L (14.0-18.0) g/dl Hct 29.7 L (42.0-52.0) % MCV 76.5 L (80.0-98.0) fL MCH 24.5 L (27.0-33.0) pg Plt Count 153 L (160-400) X10*3/uL Immature Gran % (Auto) 1.1 H (0.0-0.4) % Neut % (Auto) 82.0 H (45-73) % Lymph % (Auto) 6.5 L (20-40) % [place] # (Auto) 2.2 H (0.1-1.2) X10*3/uL Abs Immat Gran (auto) 0.26 H (0.00-0.03) X10*3/uL Absolute Neuts (auto) 18.7 H (2.0-8.3) x10*3/uL ESR 45 H (0-15) MM/HR PT 17.0 H (9.9-13.0) SEC INR 1.5 H (0.9-1.1) APTT 46.2 H (24.1-38.0) SEC Sodium (135-145) mmol/L Anion Gap (12-20) BUN (9-16) mg/dL Random Glucose (60-115) mg/dL Calcium (8.4-10.2) mg/dL Direct Bilirubin (0.0-0.5) mg/dL AST (5-37) U/L Total Creatine Kinase (38-174) U/L C-Reactive Protein (< or = 0.50) mg/dL B-Natriuretic Peptide (<100) pg/mL Albumin (3.5-5.0) g/dL Urine RBC (0) /HPF Urine Opiates Screen (Not Detect) Urine Fentanyl Screen (Not Detect) Urine Cocaine Screen (Not Detect) 01/27/22 01/27/22 01/27/22 Range/Units 13:12 13:12 13:12 WBC (4.8-10.8) X10*3/uL RBC (4.60-5.80) X10*6/uL Hgb (14.0-18.0) g/dl Hct (42.0-52.0) % MCV (80.0-98.0) fL MCH (27.0-33.0) pg Plt Count (160-400) X10*3/uL Immature Gran % (Auto) (0.0-0.4) % Neut % (Auto) (45-73) % Lymph % (Auto) (20-40) % [place] # (Auto) (0.1-1.2) X10*3/uL Abs Immat Gran (auto) (0.00-0.03) X10*3/uL Absolute Neuts (auto) (2.0-8.3) x10*3/uL ESR (0-15) MM/HR PT (9.9-13.0) SEC INR (0.9-1.1) APTT (24.1-38.0) SEC Sodium 130 L (135-145) mmol/L Anion Gap 9 L (12-20) BUN 21 H (9-16) mg/dL Random Glucose 122 H (60-115) mg/dL Calcium 7.9 L (8.4-10.2) mg/dL Direct Bilirubin 0.6 H (0.0-0.5) mg/dL AST 49 H (5-37) U/L Total Creatine Kinase 285 H (38-174) U/L C-Reactive Protein 10.38 H (< or = 0.50) mg/dL B-Natriuretic Peptide 183 H (<100) pg/mL Albumin 2.5 L (3.5-5.0) g/dL Urine RBC (0) /HPF Urine Opiates Screen (Not Detect) Urine Fentanyl Screen (Not Detect) Urine Cocaine Screen (Not Detect) 01/27/22 01/27/22 01/28/22 Range/Units 16:21 16:21 06:13 WBC (4.8-10.8) X10*3/uL RBC (4.60-5.80) X10*6/uL Hgb (14.0-18.0) g/dl Hct (42.0-52.0) % MCV (80.0-98.0) fL MCH (27.0-33.0) pg Plt Count (160-400) X10*3/uL Immature Gran % (Auto) (0.0-0.4) % Neut % (Auto) (45-73) % Lymph % (Auto) (20-40) % [place] # (Auto) (0.1-1.2) X10*3/uL Abs Immat Gran (auto) (0.00-0.03) X10*3/uL Absolute Neuts (auto) (2.0-8.3) x10*3/uL ESR (0-15) MM/HR PT (9.9-13.0) SEC INR (0.9-1.1) APTT (24.1-38.0) SEC Sodium (135-145) mmol/L Anion Gap 10 L (12-20) BUN (9-16) mg/dL Random Glucose 116 H (60-115) mg/dL Calcium 7.6 L (8.4-10.2) mg/dL Direct Bilirubin (0.0-0.5) mg/dL AST (5-37) U/L Total Creatine Kinase (38-174) U/L C-Reactive Protein (< or = 0.50) mg/dL B-Natriuretic Peptide (<100) pg/mL Albumin (3.5-5.0) g/dL Urine RBC 5-9 H (0) /HPF Urine Opiates Screen POSITIVE H (Not Detect) Urine Fentanyl Screen POSITIVE H (Not Detect) Urine Cocaine Screen POSITIVE H (Not Detect) Short CBC 01/27/22 Range/Units 13:12 WBC 22.8 H (4.8-10.8) X10*3/uL Hgb 9.5 L (14.0-18.0) g/dl Hct 29.7 L (42.0-52.0) % Plt Count 153 L (160-400) X10*3/uL BMP 01/27/22 01/28/22 13:12 06:13 Sodium 130 L 136 Potassium 3.5 3.3 Chloride 99 106 Carbon Dioxide 26 23 BUN 21 H 15 Creatinine 0.96 1.00 Calcium 7.9 L 7.6 L Cardiac Enzymes 01/27/22 01/28/22 Range/Units 13:12 06:13 Total Creatine Kinase 285 H 87 D (38-174) U/L Liver Function 01/27/22 Range/Units 13:12 Total Bilirubin 0.9 (0.0-1.0) mg/dL Direct Bilirubin 0.6 H (0.0-0.5) mg/dL AST 49 H (5-37) U/L ALT 37 (0-40) U/L Alkaline Phosphatase 112 (39-117) U/L Albumin 2.5 L (3.5-5.0) g/dL Urine 01/27/22 Range/Units 16:21 Urine Color DK YELLOW Urine Appearance CLEAR Urine pH 6.0 (5.0-8.0) Ur Specific [place] 1.015 (1.005-1.025) Urine Protein NEG (NEG-TRACE) MG/DL Urine Glucose (UA) NEG (NEG) MG/DL All other labs normal. Imaging Additional studies: Prior arterial testing and venous reflux study dated 09/03/2020 was re-reviewed. Arterial testing was within normal limits in venous testing did demonstrate some reflux. Assessment and Plan (1) Venous stasis ulcer: Status: Acute Plan In short patient has venous stasis ulcers. At the current time would recommend local wound care along with antibiotics. Once the cellulitis resolves would plan for compression. It is imperative that this patient follow-up as an outpatient so we can get him scheduled for of venous ablation to prevent recurrence of venous disease. Thank you for allowing us to participate in this patient's care. If there are any questions or concerns please do not hesitate to contact us. Procedures Date of Service Date of Service: 01/28/22
--- NOTE | 2022-01-28 11:08 | PC.NURSE ---
report given to JUAN Garcia. pt transported to overflow bed 9. no complaints.
--- NOTE | 2022-01-28 13:01 | MHC.CM.PN ---
Attempted to meet with patient in regards to discharge planning. Patient currently sleeping. No family present. Will attempt to meet again. Continue to monitor for d/c needs.
[2022-01-28 14:39] LABS: Hematocrit 34.6 % (42.0-52.0); Hemoglobin 10.7 g/dl (14.0-18.0); Mean Corpuscular HGB Conc 30.9 g/dl (31.0-36.0); Mean Corpuscular Hemoglobin 24.4 pg (27.0-33.0); Mean Platelet Volume 9.7 fL (9.4-12.4); Platelet Count 145 X10*3/uL (160-400); Red Blood Count 4.38 X10*6/uL (4.60-5.80); Red Cell Distribution Width 16.2 % (11.0-16.0); White Blood Count 18.6 X10*3/uL (4.8-10.8)
[2022-01-28 14:58] LABS: Vancomycin Random 14.1 mcg/mL (15-20)
[2022-01-28 15:08] VITALS: BP 134/67; PULSE 90; RESP 16; TEMP 36.6; O2SAT 96
--- NOTE | 2022-01-28 15:32 | W.PM.IDCN ---
History of Present Illness Data of Consult Service Date: 01/28/22 Requesting physician: Jolynn Rome Primary Care Provider: Sylvia JEROME Reason for consult: cellulitis around area of venous stasis ulcers He presents with weakness after fall. He had been in hospital for cellulitis and I had seen him. He has no fever or chills right now but increasing redness after fall. He didnt finish po Doxycycline and Augmentin at home. Review of Systems Review of Systems: Yes all other systems are reviewed and are negative [facility] Past Medical History Medical History Anemia Cellulitis Cellulitis Chronic cutaneous venous stasis ulcer Cirrhosis Depression Hepatitis C Infected wound Opioid use disorder Varicose veins of right lower extremity with inflammation Family History Family History Mother CAD (coronary artery disease) ESRD (end stage renal disease) Brother Liver failure Family history: reviewed and not pertinent Surgical History Surgical History H/O hernia repair Social History Social History Household Members: None Household Members Other:: Currently residing in a rehab facility Housing: Homeless Housing Other:: Currently residing in a rehab facility Do you presently have visiting nurse or other home services: No Unable to assess alcohol history related to: Unknown Alcohol intake: never Patient Tobacco Use Status: Never used Tobacco Tobacco use type: Cigarette Cigarettes Per Day: 2 Years Smoked: 40 e-Cigarette/Vaping Use: Never Used Second Hand Smoke Exposure: Yes Substance Use Type: Crack/Cocaine and Heroin Advance Directives Date on File: 02/11/21 service: No Current occupational status: disabled Meds Allergies Allergy/AdvReac Type Severity Reaction Status Date / Time trazodone [TRAZODONE] Allergy Intermediate RESTLESS Verified 03/10/21 00:45 LEGS Active Medications: Current Medications Acetaminophen (Acetaminophen 325 Mg Tablet) 650 mg PO Q6H PRN PRN Reason: Pain, Mild (Pain Scale 1-3) Last Admin: 01/28/22 00:03 Dose: 650 mg Enoxaparin Sodium (Enoxaparin Sodium 40 Mg/0.4 Ml Syringe) 40 mg SUBCUT Q24H [facility] Last Admin: 01/27/22 15:47 Dose: 40 mg Piperacillin Sod/Tazobactam (Sod 3.375 gm/ Sodium Chloride) 50 mls @ 100 mls/hr IV Q6H [facility] Last Infusion: 01/28/22 14:27 Dose: Infused Vancomycin HCl 1,000 mg/ (Sodium Chloride) 270 mls @ 270 mls/hr IV Q12H [facility] Last Infusion: 01/28/22 04:50 Dose: Infused Melatonin (Melatonin 3 Mg Tablet) 6 mg PO BEDTIME PRN PRN Reason: Insomnia Methadone HCl (Methadone Hcl 20 Mg/2 Ml Oral.Conc) 70 mg PO DAILY [facility] Last Admin: 01/28/22 08:28 Dose: 70 mg Ondansetron HCl (Ondansetron Hcl 4 Mg/2 Ml Vial) 4 mg IVPUSH Q8H PRN PRN Reason: Nausea and Vomiting Pharmacy Consult (Consult Rx Perform Med Rec) 1 each MISCELLANE ONCE PRN PRN Reason: Consult order Pharmacy Consult (Consult Rx Vancomycin Dosing) 1 each MISCELLANE DAILY PRN PRN Reason: Consult order Sodium Chloride (0.9 % Sodium Chloride Flush 3 Ml Syringe) 3 ml IVFLUSH QSHIFT [facility] Last Admin: 01/28/22 07:29 Dose: 3 ml Home Medications Medication Instructions Recorded Confirmed Last Taken Type methadone 10 mg/mL oral concentrate 70 mg PO DAILY 01/10/22 01/27/22 01/10/22 History Physical Exam Vital Signs: Vital Signs: Last Vital Signs Temp 97.9 F 01/28/22 15:08 Pulse 90 01/28/22 15:08 Resp 16 01/28/22 15:08 BP 134/67 01/28/22 15:08 Pulse Ox 96 01/28/22 15:08 O2 Del Method 01/28/22 15:08 BMI result Body Mass Index 27.3 Const: General: cooperative Eyes: General: appearance normal, both eyes and all related structures Resp: Effort & Inspection: normal respiratory effort Cardio: Rate: regular rate Rhythm: regular rhythm GI: Palpation (GI): Soft to palpation and nontender Extrem: Other: red right leg especially around venous stasis changes Results Labs CBC & Chem 7: 01/28/22 14:09 01/28/22 06:13 Labs: Short CBC 01/28/22 Range/Units 14:09 WBC 18.6 H (4.8-10.8) X10*3/uL Hgb 10.7 L (14.0-18.0) g/dl Hct 34.6 L (42.0-52.0) % Plt Count 145 L (160-400) X10*3/uL BMP 01/28/22 06:13 Sodium 136 Potassium 3.3 Chloride 106 Carbon Dioxide 23 BUN 15 Creatinine 1.00 Calcium 7.6 L Cardiac Enzymes 01/28/22 Range/Units 06:13 Total Creatine Kinase 87 D (38-174) U/L Urine 01/27/22 Range/Units 16:21 Urine Color DK YELLOW Urine Appearance CLEAR Urine pH 6.0 (5.0-8.0) Ur Specific [place] 1.015 (1.005-1.025) Urine Protein NEG (NEG-TRACE) MG/DL Urine Glucose (UA) NEG (NEG) MG/DL Microbiology Microbiology Results: Microbiology 01/27/22 13:25 Blood - Venous Blood Culture - Preliminary No growth after 24 hours. 01/27/22 13:12 Blood - Venous Blood Culture - Preliminary No growth after 24 hours. Assessment and Plan (1) Venous stasis ulcer: Status: Acute (2) Cellulitis: Status: Acute there is concern over strep ,staph ,less likely gram negative Plan Would continue current antibiotics Po Augmentin and Doxycycline on discharge 14 d
[2022-01-28] MEDS: Enoxaparin Sodium 40 MG/0.4 ML SYRINGE SUBCUT (16:25)
--- NOTE | 2022-01-28 18:22 | PC.NURSE ---
New admit from [facility]. Left leg venous ulcers/cellulitis. Alert and oriented, VSS, afebrile, no acute resp. distress noted. left leg wound dressing changed, tolerated it well. 1st dose of IV vamcomycin given, no adverse reaction noted. Fall precautions maintained. Will continue to monitor and treat per plan of care.
[2022-01-28 20:00] VITALS: BP 107/55; PULSE 75; RESP 17; TEMP 36.8; O2SAT 97
[2022-01-29] VITALS: BP 111/54; PULSE 75; RESP 18; TEMP 36.6; O2SAT 98
[2022-01-29] MEDS: Piperacillin Sodium/Tazobactam 3.375 GM in 0.9 % Sodium Chloride 50 ML IV ×4 (01:44→20:16)
[2022-01-29] MEDS: 0.9 % Sodium Chloride Flush 3 ML SYRINGE IVFLUSH ×4 (01:44→20:16)
[2022-01-29] MEDS: vancomycin HCL 1,000 MG in 0.9 % Sodium Chloride 250 ML 270 MG IV ×2 (03:17→15:21)
[2022-01-29 03:42] VITALS: BP 118/59; PULSE 70; RESP 18; TEMP 36.9; O2SAT 97
[2022-01-29 06:30] LABS: Creatinine Clr Calc Pharmacy 87.6; Estimated Glomerular Filt Rate > 60
[2022-01-29 07:57] VITALS: BP 131/71; PULSE 68; RESP 17; TEMP 36; O2SAT 98
[2022-01-29] MEDS: methADONE HCl 20 MG/2 ML ORAL.CONC 70 MG PO (08:01)
--- NOTE | 2022-01-29 10:27 | MHC.CM.PN ---
IMM 01/29/22, CM MET W/PT WHO REPORTS HE IS NOW OFFICIALLY HOMELESS AND REPORTED HIS [place] REFUSED TO WORK W/WAYF[employer] TO RESOLVE EVICTION, PT REPORTS HE WOULD LIKE ASSISTANCE W/PLACEMENT AND IS OPEN TO STR, PT ON METHADONE MAINT AT [facility] AND WOULD NEED [facility] D[facility]T [facility], PT WILLING TO GO TO EITHER. D/C PLAN: CUSTODIAL PLACEMENT VS STR, TRANSPORT PEND DISPO [employer] AND BOOSTERED X1
--- NOTE | 2022-01-29 10:31 | HO.PM.IMPN ---
Subjective Subjective Date of Service: 01/29/22 Interval History: no acute symptoms feeling better less right lower extremity swelling denies fever chills tolerating diet no nausea, no vomiting, no diarrhea, no acute issues overnight. Review of Systems Review of Systems: Yes all other systems are reviewed and are negative Physical Exam Vital Signs: Vital Signs: Last Vital Signs Temp 96.8 F 01/29/22 07:57 Pulse 68 01/29/22 07:57 Resp 17 01/29/22 07:57 BP 131/71 01/29/22 07:57 Pulse Ox 98 01/29/22 07:57 O2 Del Method 01/29/22 07:57 BMI result Body Mass Index 27.3 Const: Other: General? awake alert x3, resting comfortably in no acute distress.? Neck? supple, no JVD. CVS? regular rate rhythm, systolic murmur Respiratory lungs clear to auscultation, no respiratory distress, no wheeze, no rhonchi. Gastrointestinal abdomen soft, nontender, bowel sounds audible, no guarding , no rigidity. Extremities? mild improvement in right lower extremity swelling, and erythema, multiple open ulcers no drainage noted, localized to lower leg. right shoulder no swelling, no hematoma or bruising range of movement improved Neuro nonfocal , speech clear. psych appropriate affect skin multiple dry scabs both upper extremities Objective Data Active Medications Acetaminophen (Acetaminophen 325 Mg Tablet) 650 mg PO Q6H PRN PRN Reason: Pain, Mild (Pain Scale 1-3) Last Admin: 01/28/22 16:25 Dose: 650 mg Documented By: CHRISTEN Enoxaparin Sodium (Enoxaparin Sodium 40 Mg/0.4 Ml Syringe) 40 mg SUBCUT Q24H [facility] Last Admin: 01/28/22 16:25 Dose: 40 mg Documented By: CHRISTEN Piperacillin Sod/Tazobactam (Sod 3.375 gm/ Sodium Chloride) 50 mls @ 100 mls/hr IV Q6H [facility] Last Infusion: 01/29/22 08:47 Dose: 0 mls/hr Documented By: ML Vancomycin HCl 1,000 mg/ (Sodium Chloride) 270 mls @ 270 mls/hr IV Q12H [facility] Last Infusion: 01/29/22 04:27 Dose: 0 mls/hr Documented By: RADHA Melatonin (Melatonin 3 Mg Tablet) 6 mg PO BEDTIME PRN PRN Reason: Insomnia Methadone HCl (Methadone Hcl 20 Mg/2 Ml Oral.Conc) 70 mg PO DAILY [facility] Last Admin: 01/29/22 08:01 Dose: 70 mg Documented By: ML Ondansetron HCl (Ondansetron Hcl 4 Mg/2 Ml Vial) 4 mg IVPUSH Q8H PRN PRN Reason: Nausea and Vomiting Pharmacy Consult (Consult Rx Perform Med Rec) 1 each MISCELLANE ONCE PRN PRN Reason: Consult order Pharmacy Consult (Consult Rx Vancomycin Dosing) 1 each MISCELLANE DAILY PRN PRN Reason: Consult order Sodium Chloride (0.9 % Sodium Chloride Flush 3 Ml Syringe) 3 ml IVFLUSH QSHIFT [facility] Last Admin: 01/29/22 08:01 Dose: 3 ml Documented By: ML Labs CBC & Chem 7: 01/28/22 14:09 01/29/22 05:50 Labs: Laboratory Results - last 24 hr 01/28/22 01/28/22 01/29/22 14:09 14:09 05:50 MCV 79.0 L MCH 24.4 L MCHC 30.9 L RDW 16.2 H Plt Count 145 L MPV 9.7 Absolute Nucleated RBC 0.000 Nucleated RBC % (auto) 0.0 Estim Creat Clear Calc 87.6 Estimated GFR > 60 Random Vancomycin 14.1 L Microbiology Microbiology Results: Microbiology 01/27/22 13:25 Blood Culture - Preliminary Blood - Venous No growth after 24 hours. 01/27/22 13:12 Blood Culture - Preliminary Blood - Venous No growth after 24 hours. Assessment and Plan (1) Opioid use disorder: Status: Acute (2) Venous stasis ulcer: Status: Acute (3) Cellulitis: Status: Acute (4) Polysubstance abuse: Status: Acute Plan 66-year-old male with past medical history of chronic bilateral venous stasis ulcers a history of noncompliance was recently discharged from [facility] on 14 days of Augmentin and doxycycline however patient did not finish the course of antibiotic and returned to [facility] with worsening right lower extremity swelling pain and persistent open ulcers ?Right lower extremity cellulitis /with multiple venous stasis ulcers has chronic ulcers, noncompliant with followups and medications continue IV vancomycin and Zosyn day 3 WBC trending down, blood cultures negative recent MRI right leg showed no definite osteomyelitis/ CRP 10.38, bumped from last CRP of 2.91 January 10 ?keep right leg elevated right lower extremity venous duplex negative, tubular fibular x-ray showed soft tissue defects without evidence of osteomyelitis and chronic periosteal thickening seen by Dr. Monreal she recommend by mouth doxy and Augmentin for 14 days after WBC improves, also seen by Dr. Birmingham he recommend wound care opioid use disorder continue methadone home dose active IV drug use, follow Addiction Team consult ?mild hyponatremia sodium improved from 130,to 136 likely hypovolemic hyponatremia resolved ?hepatitis C outpatient GI follow-up elevated CK 285 likely due to fall normalized with ivf Mech fall with right shoulder pain use analgesics prn,no swelling/no hematoma code status full code DVT prophylaxis with Lovenox patient need continued inpatient hospitalization due to extensive right lower extremity cellulitis and open ulcers , requiring IV antibiotics. Quality Stroke Does the patient have a stroke diagnosis?: No VTE Prior VTE?: No VTE Risk Level:: Medical - moderate - high VTE Device Contraindication: Treatment Not Indicated VTE Drug Contraindication: N/A - Med Ordered
[2022-01-29 11:32] VITALS: BP 116/75; PULSE 66; RESP 16; TEMP 36.6; O2SAT 98
[2022-01-29 14:24] LABS: Vancomycin Trough 16.2 mcg/mL (10.0-20.0)
--- NOTE | 2022-01-29 14:51 | HE.PHANOTE ---
Vancomycin Dosing Addendum Continue with current regimen. Trough 16.2. Predicted AUC 471. Next level 01/30/22 @1300.
[2022-01-29] MEDS: Enoxaparin Sodium 40 MG/0.4 ML SYRINGE SUBCUT (15:19)
[2022-01-29 15:48] VITALS: BP 120/68; PULSE 72; RESP 20; TEMP 36.8; O2SAT 99
[2022-01-29 20:00] VITALS: BP 140/66; PULSE 69; RESP 18; TEMP 36.6; O2SAT 98
[2022-01-30] VITALS: BP 122/63; PULSE 63; RESP 18; TEMP 36.7; O2SAT 99
[2022-01-30] MEDS: Piperacillin Sodium/Tazobactam 3.375 GM in 0.9 % Sodium Chloride 50 ML IV ×4 (02:32→19:38)
[2022-01-30] MEDS: vancomycin HCL 1,000 MG in 0.9 % Sodium Chloride 250 ML 270 MG IV (03:17)
[2022-01-30 03:47] VITALS: BP 113/58; PULSE 69; RESP 18; TEMP 37.1; O2SAT 97
[2022-01-30 07:16] LABS: Creatinine Clr Calc Pharmacy 87.6; Estimated Glomerular Filt Rate > 60
[2022-01-30] MEDS: 0.9 % Sodium Chloride Flush 3 ML SYRINGE IVFLUSH ×3 (07:47→19:38)
[2022-01-30] MEDS: methADONE HCl 20 MG/2 ML ORAL.CONC 70 MG PO (07:50)
[2022-01-30 08:00] VITALS: BP 132/69; PULSE 62; RESP 16; TEMP 36.5; O2SAT 98
[2022-01-30 11:22] VITALS: BP 145/68; PULSE 100; RESP 16; TEMP 36.2; O2SAT 98
--- NOTE | 2022-01-30 11:56 | P.PNIM_ITS ---
Subjective Subjective Date of Service: 01/30/22 Interval History: cc: fall interval history:right shoulder pain Cardiovascular Cardiovascular: Reports no additional cardiovascular complaints Respiratory Respiratory: Reports no additional respiratory complaints Physical Exam Vital Signs: Vital Signs: Last Vital Signs Temp 97.2 F 01/30/22 11:22 Pulse 100 01/30/22 11:22 Resp 16 01/30/22 11:22 BP 145/68 H 01/30/22 11:22 Pulse Ox 98 01/30/22 11:22 O2 Del Method 01/30/22 11:22 BMI result Body Mass Index 27.3 Const: Other: General? awake alert x3, resting comfortably in no acute distress.? Neck? supple, no JVD. CVS? regular rate rhythm, systolic murmur Respiratory lungs clear to auscultation, no respiratory distress, no wheeze, no rhonchi. Gastrointestinal abdomen soft, nontender, bowel sounds audible, no guarding , no rigidity. Extremities? mild improvement in right lower extremity swelling, and erythema, multiple open ulcers no drainage noted, localized to lower leg. right shoulder no swelling, no hematoma or bruising range of movement improved Neuro nonfocal , speech clear. psych appropriate affect skin multiple dry scabs both upper extremities Objective Data Active Medications Acetaminophen (Acetaminophen 325 Mg Tablet) 650 mg PO Q6H PRN PRN Reason: Pain, Mild (Pain Scale 1-3) Last Admin: 01/28/22 16:25 Dose: 650 mg Documented By: CHRISTEN Enoxaparin Sodium (Enoxaparin Sodium 40 Mg/0.4 Ml Syringe) 40 mg SUBCUT Q24H [facility] Last Admin: 01/29/22 15:19 Dose: 40 mg Documented By: ML Piperacillin Sod/Tazobactam (Sod 3.375 gm/ Sodium Chloride) 50 mls @ 100 mls/hr IV Q6H [facility] Last Infusion: 01/30/22 08:27 Dose: 0 mls/hr Documented By: ML Vancomycin HCl 1,000 mg/ (Sodium Chloride) 270 mls @ 270 mls/hr IV Q12H [facility] Last Infusion: 01/30/22 04:23 Dose: 0 mls/hr Documented By: HENRIOC Melatonin (Melatonin 3 Mg Tablet) 6 mg PO BEDTIME PRN PRN Reason: Insomnia Methadone HCl (Methadone Hcl 20 Mg/2 Ml Oral.Conc) 70 mg PO DAILY [facility] Last Admin: 01/30/22 07:50 Dose: 70 mg Documented By: ML Ondansetron HCl (Ondansetron Hcl 4 Mg/2 Ml Vial) 4 mg IVPUSH Q8H PRN PRN Reason: Nausea and Vomiting Pharmacy Consult (Consult Rx Perform Med Rec) 1 each MISCELLANE ONCE PRN PRN Reason: Consult order Pharmacy Consult (Consult Rx Vancomycin Dosing) 1 each MISCELLANE DAILY PRN PRN Reason: Consult order Sodium Chloride (0.9 % Sodium Chloride Flush 3 Ml Syringe) 3 ml IVFLUSH QSHIFT [facility] Last Admin: 01/30/22 07:47 Dose: 3 ml Documented By: ML Labs CBC & Chem 7: 01/28/22 14:09 01/30/22 06:24 Labs: Laboratory Results - last 24 hr 01/29/22 01/30/22 13:22 06:24 Estim Creat Clear Calc 87.6 Estimated GFR > 60 Vancomycin Trough 16.2 Microbiology Microbiology Results: Microbiology 01/27/22 13:25 Blood Culture - Preliminary Blood - Venous No growth after 48 hours. 01/27/22 13:12 Blood Culture - Preliminary Blood - Venous No growth after 48 hours. Assessment and Plan (1) Opioid use disorder: Status: Acute (2) Venous stasis ulcer: Status: Acute (3) Cellulitis: Status: Acute (4) Polysubstance abuse: Status: Acute Plan 66-year-old male with past medical history of chronic bilateral venous stasis ulcers a history of noncompliance was recently discharged from [facility] on 14 days of Augmentin and doxycycline however patient did not finish the course of antibiotic and returned to [facility] with worsening right lower extremity swelling pain and persistent open ulcers ?Right lower extremity cellulitis /with multiple venous stasis ulcers has chronic ulcers, noncompliant with followups and medications continue IV vancomycin and Zosyn day 4 on dc Po Augmentin and Doxycycline on discharge 14 d WBC trending down, blood cultures negative, cotninue to monitor ?keep right leg elevated right lower extremity venous duplex negative, tubular fibular x-ray showed soft tissue defects without evidence of osteomyelitis and chronic periosteal thickening seen by Dr. Birmingham he recommend wound care opioid use disorder continue methadone home dose active IV drug use, follow Addiction Team consult ?mild hyponatremia sodium improved from 130,to 136 likely hypovolemic hyponatremia resolved ?hepatitis C outpatient GI follow-up elevated CK 285 likely due to fall normalized with ivf Mech fall with right shoulder pain use analgesics prn,no swelling/no hematoma will check xray code status full code DVT prophylaxis with Lovenox patient need continued inpatient hospitalization due to extensive right lower extremity cellulitis and open ulcers , requiring IV antibiotics. Quality Stroke Does the patient have a stroke diagnosis?: No VTE Prior VTE?: No VTE Risk Level:: Medical - moderate - high VTE Device Contraindication: Treatment Not Indicated VTE Drug Contraindication: N/A - Med Ordered
--- NOTE | 2022-01-30 13:52 | HE.PHANOTE ---
Addendum entered by Katherin Cui [facility] 01/31/22 19:21: trough 18.4 today, keep same dose Original Note: Vancomycin Addendum Trough increased from 16.2 to 19 today. Since level is continuing to rising while renal function has been stable (and has improved since initial start) will decrease dose to 750 mg Q12H so patient does not go to supratheraputic levels. Will get another level after 2 dose to guarantee patient is in therapeutic range Rosalinda Fitzgerald, LeonardoD
--- NOTE | 2022-01-30 14:46 | MHC.RECOVSUP ---
Recovery Support note: Patient is a 66 year old Ethiopian speaking male who presented to [facility] with right foot cellulitis reporting a recent fall. This blog writer met with patient in 374 to discuss his substance use and recovery supports. Patient reports he only uses heroin on days when he cannot make it to the methadone clinic due to his foot. Patient reports missing 1-2 days a week and that he uses 1-2 bags of heroin IV on days that he misses. Patient reports lately he has missed 4 days due to his foot being worse. Patient reports when he gets his methadone he is able to maintain sobriety. Patient reports prior to his hospital admission, he was working with [facility] to get a DIGITAL STRATEGY DIRECTOR to assist with getting patient to appointments. Throughout consult, patient returns to the fact that he lost his apartment and has no where to go. Patient reports he does not have any friends or family that he can stay with. This blog writer offered to provide recovery resources and to have a recovery advocate meet with patient however patient declined, stating I need to get an apartment first. Patient reports he has been working with [employer] however has not found them helpful. Patient will need last dose letter prior to discharge. Recovery Support Team available as needed.
[2022-01-30] MEDS: Enoxaparin Sodium 40 MG/0.4 ML SYRINGE SUBCUT (15:13)
[2022-01-30] MEDS: vancomycin HCL 750 MG in 0.9 % Sodium Chloride 250 ML 265 MG IV (15:13)
[2022-01-30 15:52] VITALS: BP 131/62; PULSE 63; RESP 14; TEMP 36.2; O2SAT 98
[2022-01-30 19:34] VITALS: BP 131/62; PULSE 70; RESP 14; TEMP 36.2; O2SAT 97
[2022-01-31] VITALS (8 sets, daily range): BP systolic 113–153; BP diastolic 59–71; PULSE 59–73; RESP 16–20; TEMP 36–36.7; O2SAT 96–100
[2022-01-31] MEDS: Piperacillin Sodium/Tazobactam 3.375 GM in 0.9 % Sodium Chloride 50 ML IV ×4 (01:42→19:32)
[2022-01-31] MEDS: vancomycin HCL 750 MG in 0.9 % Sodium Chloride 250 ML 265 MG IV ×2 (03:16→17:14)
[2022-01-31 07:18] LABS: Hematocrit 34.7 % (42.0-52.0); Hemoglobin 11.1 g/dl (14.0-18.0); Mean Corpuscular Hemoglobin 24.8 pg (27.0-33.0); Mean Corpuscular Volume 77.6 fL (80.0-98.0); Platelet Count 180 X10*3/uL (160-400); Red Blood Count 4.47 X10*6/uL (4.60-5.80); Red Cell Distribution Width 16.2 % (11.0-16.0); White Blood Count 8.5 X10*3/uL (4.8-10.8)
[2022-01-31 07:24] LABS: Anion Gap 11 (12-20); Blood Urea Nitrogen 14 mg/dL (9-16); Carbon Dioxide 25 mmol/L (22-29); Chloride 105 mmol/L (96-108); Creatinine Clr Calc Pharmacy 71.5; Estimated Glomerular Filt Rate > 60; Glucose Fasting 103 mg/dL (60-99); Potassium 4.6 mmol/L (3.3-5.1); Sodium 136 mmol/L (135-145)
[2022-01-31] MEDS: 0.9 % Sodium Chloride Flush 3 ML SYRINGE IVFLUSH ×3 (08:34→19:33)
[2022-01-31] MEDS: methADONE HCl 20 MG/2 ML ORAL.CONC 70 MG PO (08:43)
--- NOTE | 2022-01-31 11:10 | P.DS_ITS ---
DS: Providers Provider Date of Service: 02/01/22 Date of admission: 01/27/22 15:01 Primary care physician: Sylvia Foy Consults: 01/27/22 15:06 Consult to Infectious Diseases Routine Consulting Provider: Muna Monreal Reason for consultation: cellulitis ulcers Has provider been notified: No 01/28/22 08:01 Consult to Vascular Surgery Routine Consulting Provider: Bassem Birmingham Reason for consultation: venous stasis ulcers Has provider been notified: No 01/28/22 10:39 Addiction Medicine Routine Consulting Provider: Anita Moran Reason for consultation: iv drug use Has provider been notified: No DS: Diagnosis Discharge Diagnosis (1) Opioid use disorder: Status: Acute (2) Venous stasis ulcer: Status: Acute (3) Cellulitis: Status: Acute (4) Polysubstance abuse: Status: Acute DS: Summary Hospital Course Hospital Course: from initial hpi: ?66-year-old gentleman with past medical history significant for opiate use disorder on methadone, active IV drug abuse, hepatitis-C, tobacco dependence,? chronic venous stasis ulcers was recently discharged from [facility] on January 12 after being treated with IV antibiotics MRI of right leg showed no osteomyelitis, however showed periosteal reaction in the tibia and fibula, patient was discharged home on Augmentin and doxycycline for 14 days as per Infectious Disease recommendion and was recommended outpatient follow-up with Dr. Birmingham, however patient was thrown out? from his apartment by his landlord and all his belongings including medications with thrown, so he did not finish the course of antibiotics, today patient fell down since his? walker broke, he hit the right side of his head on the ground without loss of consciousness, he does complain of right-sided headache denies any other injuries he admitted taking methadone this morning followed by use of IV heroin and cocaine, [facility] he was noted to have a WBC count of 22,000, CRP 10.38 albumin 2.5 sodium 130, renal function is stable, he is afebrile, is noted to have significantly swollen right lower extremity with multiple open ulcers of lower leg, patient does complain of feeling hot yesterday denies URI symptoms, denies nausea,no vomiting , no abdominal pain, no diarrhea, he is homeless. hospital course: patient was admitted for right lower extremity cellulitis with multiple venous stasis ulcers. He was treated with vancomycin and Zosyn. He was seen by infectious disease recommended transitioning to 14 days of Augmentin and doxycycline once leukocytosis resolved at discharge white blood cell count is 8, right lower extremity erythema and swelling have improved significantly. Venous duplex was negative for DVT, no evidence osteomyelitis. For his opiate dependence he was given methadone. Patient had mild hyponatremia that resolved. For hepatitis C will follow outpatient. Patient mechanical fall with right shoulder pain, x-ray suspicious for rotator cuff injury, this can be followed up outpatient. patient will be discharged to SNF. he is expected to require less than 30 days at snf. Time Spent with Patient Time attestation: Total time spent providing and/or coordinating discharge services: Discharge coordination time: Greater than 30 minutes Quality: Safe Use of Opioids Does Pt have an Active Cancer Diagnosis on the Problem List?: No Quality: Stroke Does the patient have a stroke diagnosis?: No Physical Exam Vital Signs: Vital Signs: Last Vital Signs Temp 97.1 F 01/31/22 07:43 Pulse 62 01/31/22 07:43 Resp 16 01/31/22 07:43 BP 153/67 H 01/31/22 07:43 Pulse Ox 98 01/31/22 07:43 O2 Del Method 01/31/22 07:43 BMI result Body Mass Index 27.3 Const: Other: General? awake alert x3, resting comfortably in no acute distress.? Neck? supple, no JVD. CVS? regular rate rhythm, systolic murmur Respiratory lungs clear to auscultation, no respiratory distress, no wheeze, no rhonchi. Gastrointestinal abdomen soft, nontender, bowel sounds audible, no guarding , no rigidity. Extremities? mild improvement in right lower extremity swelling, and erythema, multiple open ulcers no drainage noted, localized to lower leg. right shoulder no swelling, no hematoma or bruising range of movement improved Neuro nonfocal , speech clear. psych appropriate affect skin multiple dry scabs both upper extremities DS: Data Data Completed and Pending Completed studies during hospitalization [Text1]: Procedures Detoxification Services for Substance Abuse Treatment (11/28/20) Labs on day of discharge: Laboratory Results - last 24 hr 01/30/22 01/31/22 01/31/22 12:58 06:17 06:17 WBC 8.5 RBC 4.47 L Hgb 11.1 L Hct 34.7 L MCV 77.6 L MCH 24.8 L MCHC 32.0 RDW 16.2 H Plt Count 180 MPV 10.0 Absolute Nucleated RBC 0.000 Nucleated RBC % (auto) 0.0 Sodium 136 Potassium 4.6 D Chloride 105 Carbon Dioxide 25 Anion Gap 11 L BUN 14 Creatinine 1.03 Estim Creat Clear Calc 71.5 Estimated GFR > 60 Fasting Glucose 103 H Calcium 8.0 L Vancomycin Trough 19.0 Preliminary micro results at discharge 01/27/22 13:25 Blood Culture - Preliminary Blood - Venous No growth after 48 hours. 01/27/22 13:12 Blood Culture - Preliminary Blood - Venous No growth after 48 hours. Discharge Plan Discharge Patient Disposition: er [facility] Discharge Diagnosis: celllulitis Referrals: [facility] [Outside] - 1 Day (SHORT TERM REHAB) Sylvia Foy [Primary Care Provider] - 1 Week Brayden Young MD [Physician] - 1 Week Discharge Medications: Continued methadone 10 mg/mL Concentrate 70 mg PO DAILY doxycycline hyclate 100 mg tablet 100 mg PO BID 14 Days Qty: 28 0RF amoxicillin-pot clavulanate 875-125 mg tablet 1 tab PO BID Qty: 28 0RF Discharge Orders: Discharge Order (Routine); Ordered 02/01/22 Ordered By: Kumar Mckinney Diet: advance to usual diet Activity on Discharge: As tolerated Stand Alone Forms: Patient Portal Discharge page Care Plan Goals: recovery Health Concerns: cellulitis Plan of Treatment: 14 days doxy, augmentin, follow up with ortho for right shoulder pain Assessment: see above Discharge Date/Time: 02/01/22 11:14
--- NOTE | 2022-01-31 13:26 | P.PNIM_ITS ---
Subjective Subjective Date of Service: 01/31/22 Interval History: cc: fall interval history:right shoulder pain Cardiovascular Cardiovascular: Reports no additional cardiovascular complaints Respiratory Respiratory: Reports no additional respiratory complaints Physical Exam Vital Signs: Vital Signs: Last Vital Signs Temp 96.8 F 01/31/22 11:37 Pulse 63 01/31/22 11:37 Resp 16 01/31/22 11:37 BP 122/65 01/31/22 11:37 Pulse Ox 97 01/31/22 11:37 O2 Del Method 01/31/22 11:37 BMI result Body Mass Index 27.3 Const: Other: General? awake alert x3, resting comfortably in no acute distress.? Neck? supple, no JVD. CVS? regular rate rhythm, systolic murmur Respiratory lungs clear to auscultation, no respiratory distress, no wheeze, no rhonchi. Gastrointestinal abdomen soft, nontender, bowel sounds audible, no guarding , no rigidity. Extremities? mild improvement in right lower extremity swelling, and erythema, multiple open ulcers no drainage noted, localized to lower leg. right shoulder no swelling, no hematoma or bruising range of movement improved Neuro nonfocal , speech clear. psych appropriate affect skin multiple dry scabs both upper extremities Objective Data Active Medications Acetaminophen (Acetaminophen 325 Mg Tablet) 650 mg PO Q6H PRN PRN Reason: Pain, Mild (Pain Scale 1-3) Last Admin: 01/28/22 16:25 Dose: 650 mg Documented By: CHRISTEN Enoxaparin Sodium (Enoxaparin Sodium 40 Mg/0.4 Ml Syringe) 40 mg SUBCUT Q24H [facility] Last Admin: 01/30/22 15:13 Dose: 40 mg Documented By: ML Piperacillin Sod/Tazobactam (Sod 3.375 gm/ Sodium Chloride) 50 mls @ 100 mls/hr IV Q6H [facility] Last Infusion: 01/31/22 09:24 Dose: 0 mls/hr Documented By: LETHA Vancomycin HCl 750 mg/ Sodium (Chloride) 265 mls @ 265 mls/hr IV Q12H [facility] Last Infusion: 01/31/22 04:57 Dose: 0 mls/hr Documented By: ANI Melatonin (Melatonin 3 Mg Tablet) 6 mg PO BEDTIME PRN PRN Reason: Insomnia Methadone HCl (Methadone Hcl 20 Mg/2 Ml Oral.Conc) 70 mg PO DAILY [facility] Last Admin: 01/31/22 08:43 Dose: 70 mg Documented By: LETHA Ondansetron HCl (Ondansetron Hcl 4 Mg/2 Ml Vial) 4 mg IVPUSH Q8H PRN PRN Reason: Nausea and Vomiting Pharmacy Consult (Consult Rx Perform Med Rec) 1 each MISCELLANE ONCE PRN PRN Reason: Consult order Pharmacy Consult (Consult Rx Vancomycin Dosing) 1 each MISCELLANE DAILY PRN PRN Reason: Consult order Sodium Chloride (0.9 % Sodium Chloride Flush 3 Ml Syringe) 3 ml IVFLUSH QSHIFT [facility] Last Admin: 01/31/22 08:34 Dose: 3 ml Documented By: LETHA Labs CBC & Chem 7: 01/31/22 06:17 01/31/22 06:17 Labs: Laboratory Results - last 24 hr 01/30/22 01/31/22 01/31/22 12:58 06:17 06:17 MCV 77.6 L MCH 24.8 L MCHC 32.0 RDW 16.2 H Plt Count 180 MPV 10.0 Absolute Nucleated RBC 0.000 Nucleated RBC % (auto) 0.0 Anion Gap 11 L Estim Creat Clear Calc 71.5 Estimated GFR > 60 Fasting Glucose 103 H Calcium 8.0 L Vancomycin Trough 19.0 Assessment and Plan (1) Opioid use disorder: Status: Acute (2) Venous stasis ulcer: Status: Acute (3) Cellulitis: Status: Acute (4) Polysubstance abuse: Status: Acute Plan 66-year-old male with past medical history of chronic bilateral venous stasis ulcers a history of noncompliance was recently discharged from [facility] on 14 days of Augmentin and doxycycline however patient did not finish the course of antibiotic and returned to [facility] with worsening right lower extremity swelling pain and persistent open ulcers ?Right lower extremity cellulitis /with multiple venous stasis ulcers has chronic ulcers, noncompliant with followups and medications continue IV vancomycin and Zosyn day 5 on dc Po Augmentin and Doxycycline on discharge 14 d WBC trending down, blood cultures negative, cotninue to monitor ?keep right leg elevated right lower extremity venous duplex negative, tubular fibular x-ray showed soft tissue defects without evidence of osteomyelitis and chronic periosteal thickening seen by Dr. [place] he recommend wound care opioid use disorder continue methadone home dose active IV drug use, follow Addiction Team consult ?mild hyponatremia sodium improved from 130,to 136 likely hypovolemic hyponatremia resolved ?hepatitis C outpatient GI follow-up elevated CK 285 likely due to fall normalized with ivf Mech fall with right shoulder pain use analgesics prn,no swelling/no hematoma will check xray code status full code DVT prophylaxis with Lovenox reason for continued hospitalization:difficulty ambulating, Quality Stroke Does the patient have a stroke diagnosis?: No VTE Prior VTE?: No VTE Risk Level:: Medical - moderate - high VTE Device Contraindication: Treatment Not Indicated VTE Drug Contraindication: N/A - Med Ordered
--- NOTE | 2022-01-31 13:28 | MHC.CM.PN ---
Addendum entered by Ashleigh Vasquez RN 01/31/22 14:15: PER PT EVAL, PT REC'S STR, REFERRALS PLACED TO [facility] PT IS ON [facility], PT WOULD PREFER [facility] HE HAS BEEN THERE BEFORE. Original Note: CM SET UP D/C TO [facility], CARE HOME REQUESTING [facility] BE CHANGED TO [facility] AND [facility] SENT TO [facility], CM MET W/PT TO DISCUSS DISPO AND PT BEGAN CRYING AND REPORTING HE IS UNABLE TO WALK, CM HAS REQUESTED A PT [facility] WHICH IS PENDING.
[2022-01-31 16:17] LABS: Vancomycin Trough 18.4 mcg/mL (10.0-20.0)
[2022-01-31] MEDS: Enoxaparin Sodium 40 MG/0.4 ML SYRINGE SUBCUT (17:14)
[2022-02-01] MEDS: Piperacillin Sodium/Tazobactam 3.375 GM in 0.9 % Sodium Chloride 50 ML IV ×2 (01:32→07:24)
[2022-02-01 03:45] VITALS: BP 116/63; PULSE 65; RESP 18; TEMP 36.4; O2SAT 97
[2022-02-01] MEDS: vancomycin HCL 750 MG in 0.9 % Sodium Chloride 250 ML 265 MG IV (05:04)
--- NOTE | 2022-02-01 06:21 | PC.NURSE ---
Due dressing changed this morning refused by pt., prefer to be done later of the day.
[2022-02-01 07:01] LABS: Creatinine Clr Calc Pharmacy 69.4; Estimated Glomerular Filt Rate > 60
[2022-02-01] MEDS: 0.9 % Sodium Chloride Flush 3 ML SYRINGE IVFLUSH (07:24)
[2022-02-01 07:33] VITALS: BP 130/58; PULSE 67; RESP 15; TEMP 36.3; O2SAT 97
[2022-02-01 08:37] LABS: COVID-19 Test Invalid (Negative); IDNOW Serial# 9DD0AD1C
[2022-02-01 09:41] LABS: COVID-19 Test Negative (Negative)
[2022-02-01] MEDS: methADONE HCl 20 MG/2 ML ORAL.CONC 70 MG PO (10:09)
--- NOTE | 2022-02-01 10:34 | HO.VASCPN ---
Subjective Subjective Date of Service: 02/01/22 Patient reports: no new complaints and feels better Interval history: 66-year-old gentleman presents for follow-up regarding nonhealing right lower extremity ulcers. He has had no interval issues since his hospitalization. He reports that the leg is significantly less swollen and draining a lot less. He is now for routine vascular follow-up. Physical Exam Vital Signs: Vital Signs: Last Vital Signs Temp 97.4 F 02/01/22 07:33 Pulse 67 02/01/22 07:33 Resp 15 02/01/22 07:33 BP 130/58 L 02/01/22 07:33 Pulse Ox 97 02/01/22 07:33 O2 Del Method 02/01/22 07:33 BMI result Body Mass Index 27.3 Const: General: cooperative, healthy appearing and no acute distress Orientation/consciousness: oriented to person, oriented to place and oriented to time HEENT: Head: Yes normal to inspection Neck: Carotids: no bruits Chest: Chest palpation & inspection: normal inspection of the chest Resp: Effort & Inspection: normal respiratory effort and able to speak in complete sentences Auscultation: clear to auscultation bilaterally Cardio: Rate: regular rate Heart sounds: S1 normal heart sound present and S2 normal heart sound present GI: Inspection: Yes normal to inspection Skin: General skin exam: no rashes or lesions noted Wounds: wounds noted (Right pretibial surface large wounds x4) Neuro: General: oriented to person, oriented to place, oriented to time and CN's II-XI intact bilaterally Extrem: General: Yes normal to inspection, Yes full ROM and Yes no clubbing, cyanosis or edema Psych: Appearance: grossly normal and well kempt Speech and movement: Normal speech and movement present Affect: normal affect Progress Note: A&P Assessment and plan (1) Venous stasis ulcer: Status: Acute Assessment and Plan: In short patient has venous stasis ulcer. Would recommend follow-up as an outpatient as he does have documented venous insufficiency. I did reiterate the importance of this in order for us to heal the wound her prevent future wounds from happening. He can follow up with us as an outpatient. Thank you for allowing us to assist in his care. If there are any questions or concerns please do not hesitate to contact us. Time Spent With Patient Time: Total time spent is greater than 50% in coordination of care (as documented) at patient's floor/unit and/or counseling patient: Procedures Date of Service Date of Service: 02/01/22 Quality Stroke Does the patient have a stroke diagnosis?: No VTE Prior VTE?: No VTE Risk Level:: Medical - moderate - high VTE Device Contraindication: Treatment Not Indicated VTE Drug Contraindication: N/A - Med Ordered
== END 2022-02-01 11:14 | disposition skilled nursing facility (03) | DRG 300 ==
LOC: HO.ED 15:13 → HO.EDOVER 15:18 → HO.S3 01-28 12:26 → HO.EDOVER 01-28 12:52 → HO.S3 01-28 13:28
PROVIDERS: Physician Assistant; Admitting Provider Hospitalist; Emergency Provider Student in an Organized Health Care Education/Training Program; PCP Nurse Practitioner; Visit Provider Internal Medicine
DX: I87.333 Chronic venous hypertension (idiopathic) with ulcer and inflammation of bilateral lower extremity (principal); F11.20 Opioid dependence, uncomplicated; L03.115 Cellulitis of right lower limb; E87.1 Hypo-osmolality and hyponatremia; L97.929 Non-pressure chronic ulcer of unspecified part of left lower leg with unspecified severity; L97.919 Non-pressure chronic ulcer of unspecified part of right lower leg with unspecified severity; F17.210 Nicotine dependence, cigarettes, uncomplicated; Z71.6 Tobacco abuse counseling; F19.10 Other psychoactive substance abuse, uncomplicated; B19.20 Unspecified viral hepatitis C without hepatic coma; Z20.822 Contact with and (suspected) exposure to COVID-19; Z88.8 Allergy status to other drugs, medicaments and biological substances; Z91.14 Patient's other noncompliance with medication regimen
CPT/HCPCS: 36415; 70450; 72125; 73030; 73590; 80048; 80076; 80202; 80307; 81001; 82077; 82550; 82565; 83605; 83735; 83880; 85025; 85027; 85610; 85652; 85730; 86140; 87040; 87635; 93971; 96361; 96365; 96366; 96375; 97162; 99285; J1650; J2543; J3370

== ENCOUNTER → 2022-02-22 08:49 | Outpatient (BNVA) | payer MEDICARE, MEDICAID, SELFPAY | PROVIDERS: PCP Family Medicine; Visit Provider Surgery Vascular Surgery | DX: I83.11 Varicose veins of right lower extremity with inflammation (principal) | CPT/HCPCS: 99212 ==

== ENCOUNTER 2022-03-16 13:10 | Emergency (ER) | payer MEDICARE, MEDICAID, SELFPAY ==
--- NOTE | ~2022-03-16 | US_ITS ---
EXAMINATION: US VENOUS ULTRASOUND WITH DOPPLER LOWER EXTREMITY, RIGHT CLINICAL INFORMATION: Swelling. Pain. COMPARISON: None TECHNIQUE: Ultrasound of the deep veins is performed from the hip to the calf with compression sonography and color and pulse Doppler assessment. Spectral analysis with color-flow imaging is performed. FINDINGS: There is normal venous compression and respiratory variation and augmented flow. The visualized common femoral vein, superficial femoral vein, profunda femoral vein, popliteal vein, and the trifurcation region shows no evidence of deep venous thrombosis. Calf veins are not well seen.There is no popliteal fossa cyst. Morphologically normal-appearing lymph nodes in the groin. Largest having a short axis diameter 0.9 cm. If the patient's symptoms persist, followup ultrasound in 5 days 7 days might be of value to exclude proximal propagation from a non-visualized calf vein. US/US venous duplex LE RT IMPRESSION: No DVT demonstrated in the right lower extremity.
--- NOTE | ~2022-03-16 | XR_ITS ---
EXAMINATION: XR FOOT, RIGHT CLINICAL INFORMATION: Rule out osteomyelitis COMPARISON: Right foot x-ray 01/10/2022 TECHNIQUE: AP, lateral, and oblique views of the right foot. FINDINGS: The bones are osteopenic. No fracture dislocation or x-ray evidence of osteomyelitis is seen. There is a radiopaque soft tissue foreign body adjacent to the distal second toe that is unchanged. This measures 3 mm in length. There are calcaneal spurs. Soft tissues are otherwise unremarkable. XR/XR foot RT 2V IMPRESSION: No evidence of osteomyelitis. Osteopenia. Stable soft tissue foreign body in the second toe. Calcaneal spurs.
[2022-03-16 14:08] VITALS: BP 138/64; PULSE 81; RESP 18; TEMP 36.8; O2SAT 98; BMI 25.1
[2022-03-16 15:40] LABS: MANUAL DIFF FLAG NO
[2022-03-16 15:46] LABS: Basophils Percent Auto 0.4 % (0-2); Eosinophils Absolute Auto 0.2 X10*3/uL (0.0-0.4); Eosinophils Percent Auto 2.9 % (0-4); Hematocrit 34.4 % (42.0-52.0); Hemoglobin 11.1 g/dl (14.0-18.0); Imm Gran Abs Auto 0.02 X10*3/uL (0.00-0.03); Imm Gran Pct Auto 0.3 % (0.0-0.4); Lymphocytes Absolute Auto 1.2 X10*3/uL (1.2-4.9); Lymphocytes Percent Auto 14.9 % (20-40); Mean Corpuscular HGB Conc 32.3 g/dl (31.0-36.0); Mean Corpuscular Hemoglobin 25.9 pg (27.0-33.0); Mean Corpuscular Volume 80.2 fL (80.0-98.0); Mean Platelet Volume 10.3 fL (9.4-12.4); Monocytes Absolute Auto 1.1 X10*3/uL (0.1-1.2); Monocytes Percent Auto 13.5 % (2-11); Neutrophils Absolute Auto 5.4 x10*3/uL (2.0-8.3); Platelet Count 147 X10*3/uL (160-400); Red Blood Count 4.29 X10*6/uL (4.60-5.80); Red Cell Distribution Width 18.7 % (11.0-16.0); White Blood Count 7.9 X10*3/uL (4.8-10.8)
[2022-03-16 15:57] LABS: COVID-19 Test Negative (Negative)
[2022-03-16 16:02] LABS: Alanine Aminotransferase 57 U/L (0-40); Albumin Level 3.3 g/dL (3.5-5.0); Alkaline Phosphatase 102 U/L (39-117); Anion Gap 13 (12-20); Aspartate Amino Transferase 88 U/L (5-37); Bilirubin Total 1.6 mg/dL (0.0-1.0); Blood Urea Nitrogen 21 mg/dL (9-16); Calcium 8.4 mg/dL (8.4-10.2); Carbon Dioxide 22 mmol/L (22-29); Chloride 101 mmol/L (96-108); Creatinine Clr Calc Pharmacy 67.2; Estimated Glomerular Filt Rate > 60; Glucose Random 116 mg/dL (60-115); Potassium 3.1 mmol/L (3.3-5.1); Sodium 133 mmol/L (135-145); Total Protein 7.9 g/dL (6.5-8.0)
[2022-03-16 16:03] LABS: Lactic Acid 2.5 mmol/L (0.5-2.0)
[2022-03-16 17:38] LABS: Reflex Lactate? Lactic Acid Added
--- NOTE | 2022-03-16 20:56 | ED.WOUNDLAC ---
HPI - Wound/Laceration General Chief Complaint: Wound/Laceration <Shelly Kruger NP - Last Filed: 03/17/22 01:53> Stated Complaint: LEG INFECTION PAIN <Shelly Kruger NP - Last Filed: 03/17/22 01:53> Time Seen by Provider: 03/16/22 16:03 <Shelly Kruger NP - Last Filed: 03/17/22 01:53> Source: patient <Shelly Kruger NP - Last Filed: 03/17/22 01:53> Mode of arrival: ambulatory <Shelly Kruger NP - Last Filed: 03/17/22 01:53> Limitations: no limitations <Shelly Kruger NP - Last Filed: 03/17/22 01:53> History of Present Illness HPI narrative: 66-year-old male with a history of opioid use disorder on methadone, active IVDA, hepatitis C, PVD with venous stasis ulcers on his legs with chronic wounds and cellulitis here with worsening pain the right lower leg x 4 days worsened with weight bearing. Patient tells me he had been at [facility] but left there 5 days ago due to an issue with his roommate. Patient tells me he has been living on [address] since then. He has been using heroin. He has a got in his dose of methadone the last few days. Patient reports since being on the streets his leg has been more painful and swollen with difficulty with weight-bearing. Patient denies any fevers or chills. Patient tells me that when he had been at [facility] and he had been receiving oral antibiotics. He does have a history of osteomyelitis in the leg <Shelly Kruger NP - Last Filed: 03/17/22 01:53> Related Data Home Medications: Previous Rx's Medication Instructions Recorded amoxicillin 875 mg-potassium 1 tab PO BID #14 tabs 03/17/22 clavulanate 125 mg tablet <Shelly Kruger NP - Last Filed: 03/17/22 01:53> Allergies/Adverse Reactions: Allergies Allergy/AdvReac Type Severity Reaction Status Date / Time trazodone [TRAZODONE] Allergy Intermediate RESTLESS Verified 03/16/22 14:08 LEGS <Shelly Kruger NP - Last Filed: 03/17/22 01:53> Review of Systems Review of Systems: Yes all other systems are reviewed and are negative <Shelly Kruger NP - Last Filed: 03/17/22 01:53> Constitutional: Constitutional: Reports no additional constitutional complaints, Denies body ache(s), Denies chills, Denies fever(s), Denies headache(s) and Denies weakness <Shelly Kruger NP - Last Filed: 03/17/22 01:53> Eyes: Eyes: Reports no additional eye complaints and Denies change in vision <Shelly Kruger NP - Last Filed: 03/17/22 01:53> ENT: Reports system reviewed and no additional complaints, except as documented, Denies dizziness, Denies headache(s), Denies nasal congestion, Denies nasal discharge and Denies neck pain <Shelly Kruger NP - Last Filed: 03/17/22 01:53> Cardiovascular: Cardiovascular: Reports no additional cardiovascular complaints, Denies chest pain, Denies leg edema and Denies dyspnea <Shelly Kruger NP - Last Filed: 03/17/22 01:53> Respiratory: Respiratory: Reports no additional respiratory complaints, Denies cough and Denies dyspnea <Shelly Kruger NP - Last Filed: 03/17/22 01:53> Gastrointestinal: Gastrointestinal: Reports no additional gastrointestinal complaints, Denies abdominal pain, Denies diarrhea, Denies nausea and Denies vomiting <Shelly Kruger NP - Last Filed: 03/17/22 01:53> Genitourinary: Genitourinary: Denies urinary incontinence <Shelly Kruger NP - Last Filed: 03/17/22 01:53> Musculoskeletal: Musculoskeletal: Reports no additional musculoskeletal complaints, Denies back pain, Denies arthralgias, Denies joint swelling, Denies neck pain, Denies numbness and Denies tingling <Shelly Kruger NP - Last Filed: 03/17/22 01:53> Integumentary/Breasts: Skin/Breast: Reports system reviewed and no additional complaints, except as docu, Reports swelling, Reports erythema, Denies rash and Reports wounds <Shelly Kruger NP - Last Filed: 03/17/22 01:53> Neurologic: Reports system reviewed and no additional complaints, except as documented, Denies Abnormal speech present, Denies dizziness, Denies headache(s), Denies numbness, Denies tingling and Denies weakness <Shelly Kruger NP - Last Filed: 03/17/22 01:53> [facility] Past Medical History Attestation statement: The following information was validated with the patient. <Shelly Kruger NP - Last Filed: 03/17/22 01:53> Source: old records reviewed and nursing notes reviewed <Shelly Kruger NP - Last Filed: 03/17/22 01:53> Medical History: Medical History Anemia Cellulitis Cellulitis Cellulitis Chronic cutaneous venous stasis ulcer Cirrhosis Depression Hepatitis C Infected wound Opioid use disorder Opioid use disorder Polysubstance abuse Tobacco dependence Varicose veins of right lower extremity with inflammation Venous stasis ulcer <Shelly Kruger NP - Last Filed: 03/17/22 01:53> Surgical History: Surgical History H/O hernia repair <Shelly Kruger NP - Last Filed: 03/17/22 01:53> Family History Family History: Family History Mother CAD (coronary artery disease) ESRD (end stage renal disease) Brother Liver failure <Shelly Kruger NP - Last Filed: 03/17/22 01:53> Social History Social History: Social History (Updated 02/22/22 @ 09:03 by JEMIMA Dailey) Household Members: None Household Members Other:: Currently residing in a rehab facility Housing: Homeless Housing Other:: Currently residing in a rehab facility Do you presently have visiting nurse or other home services: No Unable to assess alcohol history related to: Unknown Alcohol intake: never Patient Tobacco Use Status: Former Tobacco user Tobacco use type: Cigarette Cigarettes Per Day: 2 Years Smoked: 40 e-Cigarette/Vaping Use: Never Used Second Hand Smoke Exposure: Yes Substance Use Type: Crack/Cocaine and Heroin Advance Directives: Yes Advance Directives on File: Yes Advance Directives Date on File: 02/11/21 service: No Current occupational status: disabled <Shelly Kruger NP - Last Filed: 03/17/22 01:53> Physical Exam Vital Signs: Vital Signs: Last Vital Signs Temp 98.9 F 03/17/22 20:47 Pulse 63 03/18/22 10:07 Resp 15 03/18/22 10:07 BP 135/63 03/18/22 10:07 Pulse Ox 100 03/18/22 10:07 O2 Del Method 03/18/22 10:07 BMI result Body Mass Index 25.1 <Shelly Kruger NP - Last Filed: 03/17/22 01:53> Vital Signs: Last Vital Signs Temp 98.9 F 03/17/22 20:47 Pulse 63 03/18/22 10:07 Resp 15 03/18/22 10:07 BP 135/63 03/18/22 10:07 Pulse Ox 100 03/18/22 10:07 O2 Del Method 03/18/22 10:07 BMI result Body Mass Index 25.1 <Angeles Betancur MD - Last Filed: 03/17/22 06:31> Vital Signs: Last Vital Signs Temp 98.9 F 03/17/22 20:47 Pulse 63 03/18/22 10:07 Resp 15 03/18/22 10:07 BP 135/63 03/18/22 10:07 Pulse Ox 100 03/18/22 10:07 O2 Del Method 03/18/22 10:07 BMI result Body Mass Index 25.1 <JESSICA Quinonez - Last Filed: 03/18/22 13:05> Const: Other: +disheveled <Shelly Kruger NP - Last Filed: 03/17/22 01:53> General: alert <Shelly Kruger NP - Last Filed: 03/17/22 01:53> Orientation/consciousness: patient oriented x3 <Shelly Kruger NP - Last Filed: 03/17/22 01:53> Limitations: no limitations <Shelly Kruger NP - Last Filed: 03/17/22 01:53> HEENT: Head: Yes normal to inspection <Shelly Kruger NP - Last Filed: 03/17/22 01:53> Ears: hearing grossly normal bilaterally <Shelly Kruger NP - Last Filed: 03/17/22 01:53> General nose exam: Normal external nose present <Shelly Kruger NP - Last Filed: 03/17/22 01:53> Face and sinus: Yes normal facial exam <Shelly Kruger NP - Last Filed: 03/17/22 01:53> Mouth: Normal oral and palatal mucosa present <Shelly Kruger NP - Last Filed: 03/17/22 01:53> Throat: Yes posterior oropharynx normal <Shelly Kruger NP - Last Filed: 03/17/22 01:53> Eyes: General: appearance normal, both eyes and all related structures <Shelly Kruger NP - Last Filed: 03/17/22 01:53> Pupils: Equal, round and reactive pupils present <Shelly Kruger NP - Last Filed: 03/17/22 01:53> Neck: Neck: Yes normal visual inspection <Shelly Kruger NP - Last Filed: 03/17/22 01:53> Chest: Chest palpation & inspection: normal inspection of the chest <Shelly Kruger NP - Last Filed: 03/17/22 01:53> Resp: Effort & Inspection: normal respiratory effort <Shelly Kruger NP - Last Filed: 03/17/22 01:53> Auscultation: clear to auscultation bilaterally <Shelly Kruger NP - Last Filed: 03/17/22 01:53> Cardio: Rate: regular rate <Shelly Kruger NP - Last Filed: 03/17/22 01:53> Rhythm: regular rhythm <Shelly Kruger NP - Last Filed: 03/17/22 01:53> Peripheral pulses: Peripheral pulses 2+ throughout <Shelly Kruger NP - Last Filed: 03/17/22 01:53> GI: Inspection: Yes normal to inspection <Shelly Kruger NP - Last Filed: 03/17/22 01:53> Palpation (GI): Soft to palpation and nontender <Shelly Kruger NP - Last Filed: 03/17/22 01:53> Auscultation: normal bowel sounds <Shelly Kruger NP - Last Filed: 03/17/22 01:53> Back/Spine/Pelvis: Thoracic/Lumbar Spine: thoracic and lumbar spine normal to inspection <Shelly Kruger NP - Last Filed: 03/17/22 01:53> Skin: General skin exam: no rashes or lesions noted <Shelly Kruger NP - Last Filed: 03/17/22 01:53> Neuro: General: patient oriented x3, no focal motor deficits and normal sensation to monofilament <Shelly Kruger NP - Last Filed: 03/17/22 01:53> Cranial nerves: Yes Equal, round and reactive pupils present <Shelly Kruger NP - Last Filed: 03/17/22 01:53> Cognition (Neuro): normal cognition <Shelly Kruger NP - Last Filed: 03/17/22 01:53> Speech: No Abnormal speech present <Shelly Kruger NP - Last Filed: 03/17/22 01:53> Gait exam (Neuro): Normal gait present <Shelly Kruger NP - Last Filed: 03/17/22 01:53> Motor exam (neuro): 5/5 motor strength present throughout <Shelly Kruger NP - Last Filed: 03/17/22 01:53> Extrem: Other: right lower extremity with significant generalized swelling, erythema and warmth from the knee down. multiple chronic ulcerations on the lower medial portion of the leg and on the foot with weeping, foul smelling drainage, tender to touch. <Shelly Kruger NP - Last Filed: 03/17/22 01:53> Course Course Course Narrative: US is negative for DVT. Right lower leg x-ray shows no evidence of osteomyelitis. patient has no fever or leukocytosis. His inflammatory markers are only mildly elevated. His lactic acid is elevated however he has been elevated in the past and so I do not believe this is from infection but from dehydration. The patient received 1 L fluid and I will have nursing recheck his lactic acid when the fluids are done. The patient has been off oral antibiotics. He tells me in the past he had been on oral Augmentin which seemed to help so I will start him back on this. Patient is interested in going to detox as he has been using IV drugs again. Therefore I will hold him in the emergency room overnight and have the recovery team speak to him in the morning about potential for detox beds. I do not believe that the patient needs inpatient admission for IV antibiotics at this time <Shelly Kruger NP - Last Filed: 03/17/22 01:53> Reevaluation(s) Reevaluation #1: 0200- sign-out to Dr. Betancur pending repeat lactic acid and disposition in the morning. Patient was placed in physician observation pending disposition <Shelly Kruger NP - Last Filed: 03/17/22 01:53> Time: 06:30 <Angeles Betancur MD - Last Filed: 03/17/22 06:31> Reevaluation #2: Patient's lactic acid went up again. Patient receiving IV fluids. I discussed the patient with our hospitalist. At this time, no need for admission. We will repeat lactic acid after 2 more L of normal saline. If lactic acid does not improve, we will consult our hospitalist. Overnight, patient has not had fever or chills. <Angeles Betancur MD - Last Filed: 03/17/22 06:31> Reevaluation #3: PHYSICIAN OBSERVATION CONTINUED. PATIENT VITAL SIGNS ARE STABLE. PATIENT NO LONGER WANTS TO WAIT FOR CASE MANAGEMENT EVALUATION FOR POSSIBLE ACUTE REHAB. PATIENT ABLE TO AMBULATE AND WALK ON HIS OWN WITH WALKER. PATIENT IS ALERT ORIENTED X3. PATIENT WELL-APPEARING <JESSICA Quinonez - Last Filed: 03/18/22 13:05> Time: 13:04 <JESSICA Quinonez - Last Filed: 03/18/22 13:05> MDM - Wound/Laceration MDM Narrative Medical decision making narrative: 66-year-old male with history of opioid use disorder on methadone, active IV drug use, venous stasis ulcers and chronic wounds of the right lower extremity, history of noncompliance in the past, previous admissions for both cellulitis/osteomyelitis who presents to the ER with worsening right lower extremity pain, swelling and drainage.? On arrival to the ER patient's wounds are extremely foul-smelling with soaked dressings and socks in serosanguineous drainage. Will obtain labs, x-ray, venous US. At this time infection is suspected. Antibiotics ordered. <Shelly Kruger NP - Last Filed: 03/17/22 01:53> Medical Records Attestation: I reviewed the patient's medical records. <Shelly Kruger NP - Last Filed: 03/17/22 01:53> Lab Data Attestation: I reviewed the patient's lab results. <Shelly Kruger NP - Last Filed: 03/17/22 01:53> Result diagrams: : 03/16/22 15:31 03/16/22 15:31 <Shelly Kruger NP - Last Filed: 03/17/22 01:53> Labs: Lab Results 03/16/22 03/16/22 03/16/22 Range/Units 15:31 15:31 15:31 WBC 7.9 (4.8-10.8) X10*3/uL RBC 4.29 L (4.60-5.80) X10*6/uL Hgb 11.1 L (14.0-18.0) g/dl Hct 34.4 L (42.0-52.0) % MCV 80.2 (80.0-98.0) fL MCH 25.9 L (27.0-33.0) pg MCHC 32.3 (31.0-36.0) g/dl RDW 18.7 H (11.0-16.0) % Plt Count 147 L (160-400) X10*3/uL MPV 10.3 (9.4-12.4) fL Immature Gran % (Auto) 0.3 (0.0-0.4) % Neut % (Auto) 68.0 (45-73) % Lymph % (Auto) 14.9 L (20-40) % [place] % (Auto) 13.5 H (2-11) % Eos % (Auto) 2.9 (0-4) % Baso % (Auto) 0.4 (0-2) % Lymph # (Auto) 1.2 (1.2-4.9) X10*3/uL [place] # (Auto) 1.1 (0.1-1.2) X10*3/uL Eos # (Auto) 0.2 (0.0-0.4) X10*3/uL Baso # (Auto) 0.0 (0.0-0.2) X10*3/uL Abs Immat Gran (auto) 0.02 (0.00-0.03) X10*3/uL Absolute Neuts (auto) 5.4 (2.0-8.3) x10*3/uL Absolute Nucleated RBC 0.000 (0.0-0.012) X10*3/uL Nucleated RBC % (auto) 0.0 (0.0-0.2) /100WBC ESR (0-15) MM/HR Sodium 133 L (135-145) mmol/L Potassium 3.1 L D (3.3-5.1) mmol/L Chloride 101 (96-108) mmol/L Carbon Dioxide 22 (22-29) mmol/L Anion Gap 13 (12-20) BUN 21 H (9-16) mg/dL Creatinine 1.13 (0.5-1.4) mg/dL Estim Creat Clear Calc 67.2 Estimated GFR > 60 Random Glucose 116 H (60-115) mg/dL Lactic Acid 2.5 H* (0.5-2.0) mmol/L Lactic Acid F/U @ 2Hr (0.5-2.0) mmol/L Lactic Acid F/U @ 4Hr (0.5-2.0) mmol/L Calcium 8.4 (8.4-10.2) mg/dL Total Bilirubin 1.6 H (0.0-1.0) mg/dL AST 88 H (5-37) U/L ALT 57 H (0-40) U/L Alkaline Phosphatase 102 (39-117) U/L C-Reactive Protein (< or = 0.50) mg/dL Total Protein 7.9 (6.5-8.0) g/dL Albumin 3.3 L D (3.5-5.0) g/dL COVID-19 (JACQUE) (Negative) COVID-19 Clin Com 03/16/22 03/16/22 03/16/22 Range/Units 15:31 21:22 21:22 WBC (4.8-10.8) X10*3/uL RBC (4.60-5.80) X10*6/uL Hgb (14.0-18.0) g/dl Hct (42.0-52.0) % MCV (80.0-98.0) fL MCH (27.0-33.0) pg MCHC (31.0-36.0) g/dl RDW (11.0-16.0) % Plt Count (160-400) X10*3/uL MPV (9.4-12.4) fL Immature Gran % (Auto) (0.0-0.4) % Neut % (Auto) (45-73) % Lymph % (Auto) (20-40) % [place] % (Auto) (2-11) % Eos % (Auto) (0-4) % Baso % (Auto) (0-2) % Lymph # (Auto) (1.2-4.9) X10*3/uL [place] # (Auto) (0.1-1.2) X10*3/uL Eos # (Auto) (0.0-0.4) X10*3/uL Baso # (Auto) (0.0-0.2) X10*3/uL Abs Immat Gran (auto) (0.00-0.03) X10*3/uL Absolute Neuts (auto) (2.0-8.3) x10*3/uL Absolute Nucleated RBC (0.0-0.012) X10*3/uL Nucleated RBC % (auto) (0.0-0.2) /100WBC ESR 22 H (0-15) MM/HR Sodium (135-145) mmol/L Potassium (3.3-5.1) mmol/L Chloride (96-108) mmol/L Carbon Dioxide (22-29) mmol/L Anion Gap (12-20) BUN (9-16) mg/dL Creatinine (0.5-1.4) mg/dL Estim Creat Clear Calc Estimated GFR Random Glucose (60-115) mg/dL Lactic Acid (0.5-2.0) mmol/L Lactic Acid F/U @ 2Hr 2.2 H* (0.5-2.0) mmol/L Lactic Acid F/U @ 4Hr (0.5-2.0) mmol/L Calcium (8.4-10.2) mg/dL Total Bilirubin (0.0-1.0) mg/dL AST (5-37) U/L ALT (0-40) U/L Alkaline Phosphatase (39-117) U/L C-Reactive Protein (< or = 0.50) mg/dL Total Protein (6.5-8.0) g/dL Albumin (3.5-5.0) g/dL COVID-19 (JACQUE) Negative (Negative) COVID-19 Clin Com See Note 03/16/22 03/16/22 03/17/22 Range/Units 21:22 23:53 08:04 WBC (4.8-10.8) X10*3/uL RBC (4.60-5.80) X10*6/uL Hgb (14.0-18.0) g/dl Hct (42.0-52.0) % MCV (80.0-98.0) fL MCH (27.0-33.0) pg MCHC (31.0-36.0) g/dl RDW (11.0-16.0) % Plt Count (160-400) X10*3/uL MPV (9.4-12.4) fL Immature Gran % (Auto) (0.0-0.4) % Neut % (Auto) (45-73) % Lymph % (Auto) (20-40) % [place] % (Auto) (2-11) % Eos % (Auto) (0-4) % Baso % (Auto) (0-2) % Lymph # (Auto) (1.2-4.9) X10*3/uL [place] # (Auto) (0.1-1.2) X10*3/uL Eos # (Auto) (0.0-0.4) X10*3/uL Baso # (Auto) (0.0-0.2) X10*3/uL Abs Immat Gran (auto) (0.00-0.03) X10*3/uL Absolute Neuts (auto) (2.0-8.3) x10*3/uL Absolute Nucleated RBC (0.0-0.012) X10*3/uL Nucleated RBC % (auto) (0.0-0.2) /100WBC ESR (0-15) MM/HR Sodium (135-145) mmol/L Potassium (3.3-5.1) mmol/L Chloride (96-108) mmol/L Carbon Dioxide (22-29) mmol/L Anion Gap (12-20) BUN (9-16) mg/dL Creatinine (0.5-1.4) mg/dL Estim Creat Clear Calc Estimated GFR Random Glucose (60-115) mg/dL Lactic Acid 0.9 (0.5-2.0) mmol/L Lactic Acid F/U @ 2Hr (0.5-2.0) mmol/L Lactic Acid F/U @ 4Hr 2.8 H* (0.5-2.0) mmol/L Calcium (8.4-10.2) mg/dL Total Bilirubin (0.0-1.0) mg/dL AST (5-37) U/L ALT (0-40) U/L Alkaline Phosphatase (39-117) U/L C-Reactive Protein 1.84 H (< or = 0.50) mg/dL Total Protein (6.5-8.0) g/dL Albumin (3.5-5.0) g/dL COVID-19 (JACQUE) (Negative) COVID-19 Clin Com <Shelly Kruger, ADULT [employer]STRU[employer] - Last Filed: 03/17/22 01:53> Lab Results 03/16/22 03/16/22 03/16/22 Range/Units 15:31 15:31 15:31 WBC 7.9 (4.8-10.8) X10*3/uL RBC 4.29 L (4.60-5.80) X10*6/uL Hgb 11.1 L (14.0-18.0) g/dl Hct 34.4 L (42.0-52.0) % MCV 80.2 (80.0-98.0) fL MCH 25.9 L (27.0-33.0) pg MCHC 32.3 (31.0-36.0) g/dl RDW 18.7 H (11.0-16.0) % Plt Count 147 L (160-400) X10*3/uL MPV 10.3 (9.4-12.4) fL Immature Gran % (Auto) 0.3 (0.0-0.4) % Neut % (Auto) 68.0 (45-73) % Lymph % (Auto) 14.9 L (20-40) % [place] % (Auto) 13.5 H (2-11) % Eos % (Auto) 2.9 (0-4) % Baso % (Auto) 0.4 (0-2) % Lymph # (Auto) 1.2 (1.2-4.9) X10*3/uL [place] # (Auto) 1.1 (0.1-1.2) X10*3/uL Eos # (Auto) 0.2 (0.0-0.4) X10*3/uL Baso # (Auto) 0.0 (0.0-0.2) X10*3/uL Abs Immat Gran (auto) 0.02 (0.00-0.03) X10*3/uL Absolute Neuts (auto) 5.4 (2.0-8.3) x10*3/uL Absolute Nucleated RBC 0.000 (0.0-0.012) X10*3/uL Nucleated RBC % (auto) 0.0 (0.0-0.2) /100WBC ESR (0-15) MM/HR Sodium 133 L (135-145) mmol/L Potassium 3.1 L D (3.3-5.1) mmol/L Chloride 101 (96-108) mmol/L Carbon Dioxide 22 (22-29) mmol/L Anion Gap 13 (12-20) BUN 21 H (9-16) mg/dL Creatinine 1.13 (0.5-1.4) mg/dL Estim Creat Clear Calc 67.2 Estimated GFR > 60 Random Glucose 116 H (60-115) mg/dL Lactic Acid 2.5 H* (0.5-2.0) mmol/L Lactic Acid F/U @ 2Hr (0.5-2.0) mmol/L Lactic Acid F/U @ 4Hr (0.5-2.0) mmol/L Calcium 8.4 (8.4-10.2) mg/dL Total Bilirubin 1.6 H (0.0-1.0) mg/dL AST 88 H (5-37) U/L ALT 57 H (0-40) U/L Alkaline Phosphatase 102 (39-117) U/L C-Reactive Protein (< or = 0.50) mg/dL Total Protein 7.9 (6.5-8.0) g/dL Albumin 3.3 L D (3.5-5.0) g/dL COVID-19 (JACQUE) (Negative) COVID-19 Clin Com 03/16/22 03/16/22 03/16/22 Range/Units 15:31 21:22 21:22 WBC (4.8-10.8) X10*3/uL RBC (4.60-5.80) X10*6/uL Hgb (14.0-18.0) g/dl Hct (42.0-52.0) % MCV (80.0-98.0) fL MCH (27.0-33.0) pg MCHC (31.0-36.0) g/dl RDW (11.0-16.0) % Plt Count (160-400) X10*3/uL MPV (9.4-12.4) fL Immature Gran % (Auto) (0.0-0.4) % Neut % (Auto) (45-73) % Lymph % (Auto) (20-40) % [place] % (Auto) (2-11) % Eos % (Auto) (0-4) % Baso % (Auto) (0-2) % Lymph # (Auto) (1.2-4.9) X10*3/uL [place] # (Auto) (0.1-1.2) X10*3/uL Eos # (Auto) (0.0-0.4) X10*3/uL Baso # (Auto) (0.0-0.2) X10*3/uL Abs Immat Gran (auto) (0.00-0.03) X10*3/uL Absolute Neuts (auto) (2.0-8.3) x10*3/uL Absolute Nucleated RBC (0.0-0.012) X10*3/uL Nucleated RBC % (auto) (0.0-0.2) /100WBC ESR 22 H (0-15) MM/HR Sodium (135-145) mmol/L Potassium (3.3-5.1) mmol/L Chloride (96-108) mmol/L Carbon Dioxide (22-29) mmol/L Anion Gap (12-20) BUN (9-16) mg/dL Creatinine (0.5-1.4) mg/dL Estim Creat Clear Calc Estimated GFR Random Glucose (60-115) mg/dL Lactic Acid (0.5-2.0) mmol/L Lactic Acid F/U @ 2Hr 2.2 H* (0.5-2.0) mmol/L Lactic Acid F/U @ 4Hr (0.5-2.0) mmol/L Calcium (8.4-10.2) mg/dL Total Bilirubin (0.0-1.0) mg/dL AST (5-37) U/L ALT (0-40) U/L Alkaline Phosphatase (39-117) U/L C-Reactive Protein (< or = 0.50) mg/dL Total Protein (6.5-8.0) g/dL Albumin (3.5-5.0) g/dL COVID-19 (JACQUE) Negative (Negative) COVID-19 Clin Com See Note 03/16/22 03/16/22 03/17/22 Range/Units 21:22 23:53 08:04 WBC (4.8-10.8) X10*3/uL RBC (4.60-5.80) X10*6/uL Hgb (14.0-18.0) g/dl Hct (42.0-52.0) % MCV (80.0-98.0) fL MCH (27.0-33.0) pg MCHC (31.0-36.0) g/dl RDW (11.0-16.0) % Plt Count (160-400) X10*3/uL MPV (9.4-12.4) fL Immature Gran % (Auto) (0.0-0.4) % Neut % (Auto) (45-73) % Lymph % (Auto) (20-40) % [place] % (Auto) (2-11) % Eos % (Auto) (0-4) % Baso % (Auto) (0-2) % Lymph # (Auto) (1.2-4.9) X10*3/uL [place] # (Auto) (0.1-1.2) X10*3/uL Eos # (Auto) (0.0-0.4) X10*3/uL Baso # (Auto) (0.0-0.2) X10*3/uL Abs Immat Gran (auto) (0.00-0.03) X10*3/uL Absolute Neuts (auto) (2.0-8.3) x10*3/uL Absolute Nucleated RBC (0.0-0.012) X10*3/uL Nucleated RBC % (auto) (0.0-0.2) /100WBC ESR (0-15) MM/HR Sodium (135-145) mmol/L Potassium (3.3-5.1) mmol/L Chloride (96-108) mmol/L Carbon Dioxide (22-29) mmol/L Anion Gap (12-20) BUN (9-16) mg/dL Creatinine (0.5-1.4) mg/dL Estim Creat Clear Calc Estimated GFR Random Glucose (60-115) mg/dL Lactic Acid 0.9 (0.5-2.0) mmol/L Lactic Acid F/U @ 2Hr (0.5-2.0) mmol/L Lactic Acid F/U @ 4Hr 2.8 H* (0.5-2.0) mmol/L Calcium (8.4-10.2) mg/dL Total Bilirubin (0.0-1.0) mg/dL AST (5-37) U/L ALT (0-40) U/L Alkaline Phosphatase (39-117) U/L C-Reactive Protein 1.84 H (< or = 0.50) mg/dL Total Protein (6.5-8.0) g/dL Albumin (3.5-5.0) g/dL COVID-19 ([facility]) (Negative) COVID-19 Clin Com <Angeles Betancur MD - Last Filed: 03/17/22 06:31> Lab Results 03/16/22 03/16/22 03/16/22 Range/Units 15:31 15:31 15:31 WBC 7.9 (4.8-10.8) X10*3/uL RBC 4.29 L (4.60-5.80) X10*6/uL Hgb 11.1 L (14.0-18.0) g/dl Hct 34.4 L (42.0-52.0) % MCV 80.2 (80.0-98.0) fL MCH 25.9 L (27.0-33.0) pg MCHC 32.3 (31.0-36.0) g/dl RDW 18.7 H (11.0-16.0) % Plt Count 147 L (160-400) X10*3/uL MPV 10.3 (9.4-12.4) fL Immature Gran % (Auto) 0.3 (0.0-0.4) % Neut % (Auto) 68.0 (45-73) % Lymph % (Auto) 14.9 L (20-40) % [place] % (Auto) 13.5 H (2-11) % Eos % (Auto) 2.9 (0-4) % Baso % (Auto) 0.4 (0-2) % Lymph # (Auto) 1.2 (1.2-4.9) X10*3/uL [place] # (Auto) 1.1 (0.1-1.2) X10*3/uL Eos # (Auto) 0.2 (0.0-0.4) X10*3/uL Baso # (Auto) 0.0 (0.0-0.2) X10*3/uL Abs Immat Gran (auto) 0.02 (0.00-0.03) X10*3/uL Absolute Neuts (auto) 5.4 (2.0-8.3) x10*3/uL Absolute Nucleated RBC 0.000 (0.0-0.012) X10*3/uL Nucleated RBC % (auto) 0.0 (0.0-0.2) /100WBC ESR (0-15) MM/HR Sodium 133 L (135-145) mmol/L Potassium 3.1 L D (3.3-5.1) mmol/L Chloride 101 (96-108) mmol/L Carbon Dioxide 22 (22-29) mmol/L Anion Gap 13 (12-20) BUN 21 H (9-16) mg/dL Creatinine 1.13 (0.5-1.4) mg/dL Estim Creat Clear Calc 67.2 Estimated GFR > 60 Random Glucose 116 H (60-115) mg/dL Lactic Acid 2.5 H* (0.5-2.0) mmol/L Lactic Acid F/U @ 2Hr (0.5-2.0) mmol/L Lactic Acid F/U @ 4Hr (0.5-2.0) mmol/L Calcium 8.4 (8.4-10.2) mg/dL Total Bilirubin 1.6 H (0.0-1.0) mg/dL AST 88 H (5-37) U/L ALT 57 H (0-40) U/L Alkaline Phosphatase 102 (39-117) U/L C-Reactive Protein (< or = 0.50) mg/dL Total Protein 7.9 (6.5-8.0) g/dL Albumin 3.3 L D (3.5-5.0) g/dL COVID-19 ([facility]) (Negative) COVID-19 Clin Com 03/16/22 03/16/22 03/16/22 Range/Units 15:31 21:22 21:22 WBC (4.8-10.8) X10*3/uL RBC (4.60-5.80) X10*6/uL Hgb (14.0-18.0) g/dl Hct (42.0-52.0) % MCV (80.0-98.0) fL MCH (27.0-33.0) pg MCHC (31.0-36.0) g/dl RDW (11.0-16.0) % Plt Count (160-400) X10*3/uL MPV (9.4-12.4) fL Immature Gran % (Auto) (0.0-0.4) % Neut % (Auto) (45-73) % Lymph % (Auto) (20-40) % [place] % (Auto) (2-11) % Eos % (Auto) (0-4) % Baso % (Auto) (0-2) % Lymph # (Auto) (1.2-4.9) X10*3/uL [place] # (Auto) (0.1-1.2) X10*3/uL Eos # (Auto) (0.0-0.4) X10*3/uL Baso # (Auto) (0.0-0.2) X10*3/uL Abs Immat Gran (auto) (0.00-0.03) X10*3/uL Absolute Neuts (auto) (2.0-8.3) x10*3/uL Absolute Nucleated RBC (0.0-0.012) X10*3/uL Nucleated RBC % (auto) (0.0-0.2) /100WBC ESR 22 H (0-15) MM/HR Sodium (135-145) mmol/L Potassium (3.3-5.1) mmol/L Chloride (96-108) mmol/L Carbon Dioxide (22-29) mmol/L Anion Gap (12-20) BUN (9-16) mg/dL Creatinine (0.5-1.4) mg/dL Estim Creat Clear Calc Estimated GFR Random Glucose (60-115) mg/dL Lactic Acid (0.5-2.0) mmol/L Lactic Acid F/U @ 2Hr 2.2 H* (0.5-2.0) mmol/L Lactic Acid F/U @ 4Hr (0.5-2.0) mmol/L Calcium (8.4-10.2) mg/dL Total Bilirubin (0.0-1.0) mg/dL AST (5-37) U/L ALT (0-40) U/L Alkaline Phosphatase (39-117) U/L C-Reactive Protein (< or = 0.50) mg/dL Total Protein (6.5-8.0) g/dL Albumin (3.5-5.0) g/dL COVID-19 (JACQUE) Negative (Negative) COVID-19 Clin Com See Note 03/16/22 03/16/22 03/17/22 Range/Units 21:22 23:53 08:04 WBC (4.8-10.8) X10*3/uL RBC (4.60-5.80) X10*6/uL Hgb (14.0-18.0) g/dl Hct (42.0-52.0) % MCV (80.0-98.0) fL MCH (27.0-33.0) pg MCHC (31.0-36.0) g/dl RDW (11.0-16.0) % Plt Count (160-400) X10*3/uL MPV (9.4-12.4) fL Immature Gran % (Auto) (0.0-0.4) % Neut % (Auto) (45-73) % Lymph % (Auto) (20-40) % [place] % (Auto) (2-11) % Eos % (Auto) (0-4) % Baso % (Auto) (0-2) % Lymph # (Auto) (1.2-4.9) X10*3/uL [place] # (Auto) (0.1-1.2) X10*3/uL Eos # (Auto) (0.0-0.4) X10*3/uL Baso # (Auto) (0.0-0.2) X10*3/uL Abs Immat Gran (auto) (0.00-0.03) X10*3/uL Absolute Neuts (auto) (2.0-8.3) x10*3/uL Absolute Nucleated RBC (0.0-0.012) X10*3/uL Nucleated RBC % (auto) (0.0-0.2) /100WBC ESR (0-15) MM/HR Sodium (135-145) mmol/L Potassium (3.3-5.1) mmol/L Chloride (96-108) mmol/L Carbon Dioxide (22-29) mmol/L Anion Gap (12-20) BUN (9-16) mg/dL Creatinine (0.5-1.4) mg/dL Estim Creat Clear Calc Estimated GFR Random Glucose (60-115) mg/dL Lactic Acid 0.9 (0.5-2.0) mmol/L Lactic Acid F/U @ 2Hr (0.5-2.0) mmol/L Lactic Acid F/U @ 4Hr 2.8 H* (0.5-2.0) mmol/L Calcium (8.4-10.2) mg/dL Total Bilirubin (0.0-1.0) mg/dL AST (5-37) U/L ALT (0-40) U/L Alkaline Phosphatase (39-117) U/L C-Reactive Protein 1.84 H (< or = 0.50) mg/dL Total Protein (6.5-8.0) g/dL Albumin (3.5-5.0) g/dL COVID-19 (JACQUE) (Negative) COVID-19 Clin Com <JESSICA Quinonez - Last Filed: 03/18/22 13:05> Imaging Data Venous US: Attestation: I personally reviewed and interpreted this imaging study as follows: <Shelly Kruger NP - Last Filed: 03/17/22 01:53> Radiologist's impression: [place] [id number] Ultrasound Report Signed Patient: Larry Cooney MR#: [id number] : 1955 Acct:[id number] Age/Sex: 66 / M ADM Date: 03/16/22 Loc: HO.ED Attending Dr: Ordering Physician: Shelly Kruger NP Date of Service: 03/16/22 Procedure(s): US venous duplex LE RT Accession Number(s): [id number] cc: Shelly Kruger NP~ EXAMINATION:? US VENOUS ULTRASOUND WITH DOPPLER LOWER EXTREMITY, RIGHT CLINICAL INFORMATION:? Swelling. Pain. COMPARISON:? None TECHNIQUE: Ultrasound of the deep veins is performed from the hip to the calf with compression sonography and color and pulse Doppler assessment. Spectral analysis with color-flow imaging is performed. FINDINGS: There is normal venous compression and respiratory variation and augmented flow. The visualized common femoral vein, superficial femoral vein, profunda femoral vein, popliteal vein, and the trifurcation region shows no evidence of deep venous thrombosis. Calf veins are not well seen.There is no popliteal fossa cyst. Morphologically normal-appearing lymph nodes in the groin. Largest having a short axis diameter 0.9 cm. If the patient's symptoms persist, followup ultrasound in 5 days 7 days might be of value to exclude proximal propagation from a non-visualized calf vein. US/US venous duplex LE RT IMPRESSION: No DVT demonstrated in the right lower extremity. <Shelly Kruger NP - Last Filed: 03/17/22 01:53> Discharge Plan Discharge Clinical Impression: Cellulitis, Opioid use disorder <Shelly Kruger NP - Last Filed: 03/17/22 01:53> Patient Disposition: Left Against Medical Advice <Shelly Kruger NP - Last Filed: 03/17/22 01:53> Instructions: Cellulitis (ED), Opioid Use Disorder (ED) <Shelly Kruger NP - Last Filed: 03/17/22 01:53> Additional Instructions: RETURN TO THE ED FOR WORSENING OR ANY CONCERNING SYMPTOMS. <Shelly Kruger NP - Last Filed: 03/17/22 01:53> Prescriptions: New amoxicillin-pot clavulanate 875-125 mg tablet 1 tab PO BID Qty: 14 0RF <Shelly Kruger NP - Last Filed: 03/17/22 01:53> Stand Alone Forms: Against Medical Advice <Shelly Kruger NP - Last Filed: 03/17/22 01:53> Print Language: Indonesian <DAJUAN Eddy Last Filed: 03/17/22 01:53>
--- NOTE | 2022-03-16 21:21 | MHC.CM.ED ---
Shelly LOPEZ spoke with CM regarding this pt. Medical work-up is pending. Pt left [facility] 5 days ago, ?STR,after an argument with room mate. Has been living on streets since and using IV drugs. Pt also uses methadone. Pt has hx cellulitis, osteomyelitis, chronic venous stasis, hep C, depression polysubstance use and active IVDA.HCP on file. HCP/niuriel Corin Saul ([phone]). Vax x2 Pfizer 02/24/21 & 06/22/21. CM will meet with pt if needed when work up complete.
[2022-03-16 21:51] LABS: C Reactive Protein 1.84 mg/dL (< or = 0.50)
[2022-03-16 21:56] LABS: ~Lactic Acid-LAB USE ONLY 2.2 mmol/L (0.5-2.0)
[2022-03-16 22:31] LABS: Erythrocyte Sedimentation Rate 22 MM/HR (0-15)
[2022-03-16 23:26] LABS: Reflex Lactate? 2 Y
[2022-03-16] MEDS: 0.9 % Sodium Chloride 1,000 ML 999 ML IV (23:47)
[2022-03-16] MEDS: Ketorolac Tromethamine 30 MG/ML VIAL IVPUSH (23:47)
[2022-03-16] MEDS: Piperacillin Sodium/Tazobactam 3.375 GM in 0.9 % Sodium Chloride 50 ML IV (23:47)
[2022-03-17] VITALS (11 sets, daily range): BP systolic 103–138; BP diastolic 50–67; PULSE 62–83; RESP 12–18; TEMP 36.8–37.2; O2SAT 96–100
[2022-03-17 00:19] LABS: ~Lactic Acid-LAB USE ONLY 2.8 mmol/L (0.5-2.0)
[2022-03-17] MEDS: 0.9 % Sodium Chloride 2,000 ML 999 ML IVCONT (06:12)
[2022-03-17] MEDS: Potassium Chloride Packet 20 MEQ PACKET 40 MEQ PO (06:30)
[2022-03-17 08:29] LABS: Lactic Acid 0.9 mmol/L (0.5-2.0)
--- NOTE | 2022-03-17 08:59 | PC.NURSE ---
called [facility] metadone clinic, states patient hasnt been there for doseing of methadone since 01/27/22
--- NOTE | 2022-03-17 09:08 | PHA.MEDREC ---
Pharmacy Consult ? Medication Reconciliation Pharmacy has completed the medication reconciliation. Pt told me he gets methadone here in [place] and when I asked what dose he first said 50mg then 60mg. Spoke to Emmanuelle who called the clinic, clinic stated he is listed as inactive and has not been there since late January.
[2022-03-17] MEDS: Amoxicillin/Potassium Clav 875 MG TABLET PO ×2 (09:43→21:06)
--- NOTE | 2022-03-17 11:38 | MHC.CM.PN ---
Addendum entered by Ghada Fu 03/18/22 12:07: [facility] HAS DECLINED REFERRAL Addendum entered by Ghada Fu 03/18/22 11:50: REFERRAL EXPANDED TO INCLUDE BARB Original Note: CM INFORMED STR IS GOING TO BE RECOMMENDED BY PHYSICAL THERAPY, PT RECENTLY LEFT [facility] WHERE HE WAS PLACED FOR STR, HOWEVER PER SNF, PT REFUSED TO PARTICIPATE WHILE THERE. [facility] REPORTS IF PT WERE TO NEED IV MEDS AT DC THEY MAY CONSIDER HOWEVER THEY ARE RELUCTANT TO ACCEPT FOR PT NEEDS ONLY CM WILL REFER TO BARB AND ENSURE PT IS AWARE HE CANNOT GO TO STR WITHOUT AGREEING TO PARTICIPATE IN TREATMENT WHILE THERE
--- NOTE | 2022-03-17 12:07 | PC.NURSE ---
PT AOX4 AMB WITH STEADY GAIT TOLERATING ORAL ABX AND PO. WAITING ON PT/CM CONSULT PT REQUESTING SHORT TERM REHAB. PT NEEDS BEING MET
[2022-03-18] MEDS: Amoxicillin/Potassium Clav 875 MG TABLET PO (10:03)
--- NOTE | 2022-03-18 10:05 | PC.NURSE ---
Wound cleansed with normal saline, bacitracin applied. Wound dressed with telfa and gauze wrap. Patient tolerated procedure well.
[2022-03-18 10:07] VITALS: BP 135/63; PULSE 63; RESP 15; O2SAT 100
--- NOTE | 2022-03-18 12:32 | MHC.CM.ED ---
Addendum entered by Tiffany Blanca 03/18/22 13:53: Pt tells Christopher LOPEZ and CM that he no longer wants to wait in the hospital for rehab. Pt tells CM that he will go out and buy a couple bags of heroin. CM stressed importance of pt staying for treatment. Pt refuses. Pt signed out AMA. Ambulated with steady gait with his cane. Addendum entered by Tiffany Blanca 03/18/22 12:51: [facility] continues to review. [facility] has no beds. Will speak with patient about expanding search to [facility]. CM to follow for d/c needs. Original Note: Pt awakened by CM to ask if he was willing to participate in PT when we get a facility for STR. Pt states yes, but is questioning if he can go to [place] , needs his methadone . Pt states he was getting methadone at [facility]. CM spoke with Christopher LOPEZ and Dr. Ortiz regarding request. Christopher states he saw pt this am and he is not exhibiting any signs of withdrawal and his VS are stable. CM will follow for d/c needs.
== END 2022-03-18 12:30 | disposition left against medical advice (07) ==
PROVIDERS: Emergency Medicine; Emergency Medicine Emergency Medical Services; Nurse Practitioner Family; Emergency Provider Emergency Medicine
DX: L03.116 Cellulitis of left lower limb (principal); L03.115 Cellulitis of right lower limb; M79.604 Pain in right leg; F19.10 Other psychoactive substance abuse, uncomplicated; I87.8 Other specified disorders of veins; F11.20 Opioid dependence, uncomplicated; F17.200 Nicotine dependence, unspecified, uncomplicated; Z20.822 Contact with and (suspected) exposure to COVID-19
CPT/HCPCS: 36415; 73620; 80053; 83605; 85025; 85652; 86140; 87040; 87635; 93971; 96361; 96374; 97162; 99284; 99285; J1885; J2543

== ENCOUNTER 2022-04-11 16:49 | Inpatient (IN) | payer MEDICARE, MEDICAID, SELFPAY ==
--- NOTE | ~2022-04-11 | XR_ITS ---
EXAMINATION: XR TIBIA AND FIBULA, RIGHT CLINICAL INFORMATION: Bone. Evaluate for osteomyelitis COMPARISON: X-rays of the right tibia-fibula January 2022 TECHNIQUE: AP and lateral views of the right tibia and fibula were obtained. FINDINGS: There is increased density in the subcutaneous soft tissues compatible edema and/or cellulitis. The bone is unremarkable. XR/XR tibia fibula RT 2V IMPRESSION: No radiographic signs of osteomyelitis. Probable soft tissue swelling likely reflects edema, cellulitis, or combination of these.
--- NOTE | ~2022-04-11 | US_ITS ---
EXAMINATION: US VENOUS ULTRASOUND WITH DOPPLER LOWER EXTREMITY, RIGHT CLINICAL INFORMATION: Right lower extremity swelling COMPARISON: Right Venous ultrasound March 2022 TECHNIQUE: Ultrasound of the deep veins is performed from the hip to the calf with compression sonography and color and pulse Doppler assessment. Spectral analysis with color-flow imaging is performed. FINDINGS: There is normal venous compression and respiratory variation and augmented flow. The visualized common femoral vein, superficial femoral vein, profunda femoral vein, popliteal vein, and the trifurcation region shows no evidence of deep venous thrombosis. There is no significant popliteal fossa cyst. If the patient's symptoms persist, followup ultrasound in 5 days 7 days might be of value to exclude proximal propagation from a non-visualized calf vein. US/US venous duplex LE RT IMPRESSION: No DVT demonstrated in the right lower extremity.
[2022-04-11 16:56] VITALS: BP 150/116; PULSE 80; RESP 18; TEMP 36.8; O2SAT 99; BMI 24.3
[2022-04-11 17:06] LABS: MANUAL DIFF FLAG NO
[2022-04-11 17:07] LABS: Basophils Absolute Auto 0.1 X10*3/uL (0.0-0.2); Basophils Percent Auto 0.8 % (0-2); Eosinophils Absolute Auto 0.3 X10*3/uL (0.0-0.4); Eosinophils Percent Auto 4.4 % (0-4); Hematocrit 32.1 % (42.0-52.0); Hemoglobin 10.2 g/dl (14.0-18.0); Imm Gran Abs Auto 0.01 X10*3/uL (0.00-0.03); Imm Gran Pct Auto 0.2 % (0.0-0.4); Lymphocytes Absolute Auto 1.1 X10*3/uL (1.2-4.9); Mean Corpuscular HGB Conc 31.8 g/dl (31.0-36.0); Mean Corpuscular Hemoglobin 26.2 pg (27.0-33.0); Mean Corpuscular Volume 82.5 fL (80.0-98.0); Mean Platelet Volume 9.4 fL (9.4-12.4); Monocytes Absolute Auto 0.8 X10*3/uL (0.1-1.2); Monocytes Percent Auto 13.7 % (2-11); Neutrophils Absolute Auto 3.8 x10*3/uL (2.0-8.3); Neutrophils Percent Auto 62.9 % (45-73); Platelet Count 115 X10*3/uL (160-400); Red Blood Count 3.89 X10*6/uL (4.60-5.80); Red Cell Distribution Width 17.3 % (11.0-16.0); White Blood Count 6.1 X10*3/uL (4.8-10.8)
[2022-04-11 17:24] LABS: Alanine Aminotransferase 38 U/L (0-40); Albumin Level 3.1 g/dL (3.5-5.0); Alkaline Phosphatase 113 U/L (39-117); Anion Gap 12 (12-20); Aspartate Amino Transferase 74 U/L (5-37); Bilirubin Total 1.2 mg/dL (0.0-1.0); Blood Urea Nitrogen 30 mg/dL (9-16); Calcium 8.5 mg/dL (8.4-10.2); Carbon Dioxide 23 mmol/L (22-29); Chloride 105 mmol/L (96-108); Estimated Glomerular Filt Rate > 60; Glucose Random 133 mg/dL (60-115); Potassium 3.4 mmol/L (3.3-5.1); Sodium 137 mmol/L (135-145); Total Protein 7.6 g/dL (6.5-8.0)
--- NOTE | 2022-04-11 19:21 | ED_ITS ---
HPI - Extremity Problem General Chief complaint: Extremity Problem Stated complaint: R Leg Infection Time Seen by Provider: 04/11/22 17:35 Source: patient Mode of arrival: ambulatory Limitations: no limitations History of Present Illness HPI Narrative: 66 year old male with history of opioid use disorder on methadone, active IVDA, hepatitis C, PVD with venous stasis ulcers on his legs with chronic wounds and cellulitis who presents to the emergency department with concerns for an infection to his right lower extremity, patient reports recently he was prescribed antibiotics for this however it seems to not be getting better, he now reports open sores on RLE. Patient tells me it has been worsening instead. He reports that he take antibiotics to completion and did not miss any doses. He tells me that this has happened to him before. Denies fevers, chills, chest pain, shortness of breath, nausea, vomiting, abdominal pain, weakness, headache, dizziness. Related Data Home Medications Medication Instructions Recorded Confirmed fluoxetine 10 mg tablet 10 mg PO DAILY 04/11/22 04/11/22 methadone 10 mg/mL oral 45 mg PO DAILY 04/11/22 concentrate (Methadone Intensol) Allergies Allergy/AdvReac Type Severity Reaction Status Date / Time trazodone [TRAZODONE] Allergy Intermediate RESTLESS Verified 03/16/22 14:08 LEGS Review of Systems Review of Systems: Constitutional : No Weight loss, No Fever, No Chills, No Fatigue, No Malaise ENT/Mouth : No sore throat, No Rhinorrhea Eyes: No Eye Pain, No Swelling, No Redness Cardiovascular : No Chest Pain, No SOB, No Dyspnea on Exertion, No Orthopnea, No Edema, No Palpitations Respiratory : No Cough, No Sputum, No Wheezing Gastrointestinal : No Nausea, No Vomiting, No Diarrhea, No Constipation, No abdominal Pain, No Hematochezia, No Melena Genitourinary : No Dysuria, No Urinary Frequency, No Hematuria, Musculoskeletal : No joint pain, No Myalgias, No Joint Swelling Skin : No Skin Lesions, No rash, + cellulitis Neuro : No Weakness, No Numbness, No Dizziness, No Headache Psych : No Anxiety/Panic, No Depression All other systems reviewed and are negative Yes all other systems are reviewed and are negative PMFSH Past Medical History Attestation statement: The following information was validated with the patient. 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 Opioid use disorder Polysubstance abuse Tobacco dependence Varicose veins of right lower extremity with inflammation Venous stasis ulcer Surgical History H/O hernia repair Family History Family History Mother CAD (coronary artery disease) ESRD (end stage renal disease) Brother Liver failure Social History Social History Household Members: None Household Members Other:: Currently residing in a rehab facility Housing: Homeless Housing Other:: Currently residing in a rehab facility Do you presently have visiting nurse or other home services: No Unable to assess alcohol history related to: Unknown Alcohol intake: never Patient Tobacco Use Status: Former Tobacco user Tobacco use type: Cigarette Cigarettes Per Day: 2 Years Smoked: 40 e-Cigarette/Vaping Use: Never Used Second Hand Smoke Exposure: Yes Substance Use Type: Crack/Cocaine and Heroin Advance Directives: No Advance Directives Information Provided: No Advance Directives Date on File: 02/11/21 service: No Current occupational status: disabled Physical Exam Vital Signs: Vital Signs: Last Vital Signs Temp 99.2 F 04/11/22 21:04 Pulse 80 04/11/22 21:04 Resp 16 04/11/22 21:04 BP 157/71 H 04/11/22 21:04 Pulse Ox 100 04/11/22 21:04 O2 Del Method 04/11/22 21:04 BMI result Body Mass Index 24.3 Patient noted to be hypertensive. Appearance: Alert.? Oriented X3.? No acute distress.? Head: Normocephalic, atraumatic, no step-offs or deformities Eyes: Pupils equal, round and reactive to light.? ENT: Pharynx normal.? Neck: Normal inspection.? Neck supple.? CVS: Normal heart rate and rhythm.? Pulses normal.? Respiratory: No respiratory distress.? Breath sounds normal.? Abdomen: Soft and nontender.? Skin: Skin warm and dry.? Normal skin color.? Normal skin turgor.? Erythema, warmth to right lower extremity with open sores. (images below) Extremities: + 2+ non pitting edema to RLE from knee down, no edema on left lower extremity.? No calf ttp. 5/5 strength to bilateral upper and lower extremities. 2+ DP,AT,DP pulses equal and b/l Neuro: Oriented X 3.? No motor deficit.? No sensory deficit. CN 2-12 intact Course Reevaluation(s) Reevaluation #1: CBC appears to be around baseline. Chemistry with no acute electrolyte abnormalities requiring intervention. Ultrasound of the right lower extremity pending. This time blood cultures, lactic acid antibiotics have been ordered. Time: 19:37 Reevaluation #2: No DVT noted to the right lower extremity. X-ray with no acute finding, no signs of osteomyelitis. At this time patient will be admitted to the [facility] team for cellulitis, open wounds, patient will need IV antibiotics. At this time patient will be admitted to the hospitalist team. Time: 21:18 MDM - Extremity (Nontraumatic) MDM Narrative Medical decision making narrative: 1923 66-year-old male presenting to the emergency department with cellulitis to right lower extremity, recently finished a course of Augmentin with little to no relief. Patient currently a daily IV drug abuser. Physical examination is cellulitis of the right lower extremity w/ open wounds, images in chart. Plan at this time is basic labs. US of RLE to rule out DVT although less likely. Medical Records Attestation: I reviewed the patient's medical records. Lab Data Attestation: I reviewed the patient's lab results. Result diagrams: 04/11/22 17:01 04/11/22 17:01 Labs: Lab Results 04/11/22 04/11/22 Range/Units 17:01 17:01 WBC 6.1 (4.8-10.8) X10*3/uL RBC 3.89 L (4.60-5.80) X10*6/uL Hgb 10.2 L (14.0-18.0) g/dl Hct 32.1 L (42.0-52.0) % MCV 82.5 (80.0-98.0) fL MCH 26.2 L (27.0-33.0) pg MCHC 31.8 (31.0-36.0) g/dl RDW 17.3 H (11.0-16.0) % Plt Count 115 L (160-400) X10*3/uL MPV 9.4 (9.4-12.4) fL Immature Gran % (Auto) 0.2 (0.0-0.4) % Neut % (Auto) 62.9 (45-73) % Lymph % (Auto) 18.0 L (20-40) % [place] % (Auto) 13.7 H (2-11) % Eos % (Auto) 4.4 H (0-4) % Baso % (Auto) 0.8 (0-2) % Lymph # (Auto) 1.1 L (1.2-4.9) X10*3/uL [place] # (Auto) 0.8 (0.1-1.2) X10*3/uL Eos # (Auto) 0.3 (0.0-0.4) X10*3/uL Baso # (Auto) 0.1 (0.0-0.2) X10*3/uL Abs Immat Gran (auto) 0.01 (0.00-0.03) X10*3/uL Absolute Neuts (auto) 3.8 (2.0-8.3) x10*3/uL Absolute Nucleated RBC 0.000 (0.0-0.012) X10*3/uL Nucleated RBC % (auto) 0.0 (0.0-0.2) /100WBC Sodium 137 (135-145) mmol/L Potassium 3.4 (3.3-5.1) mmol/L Chloride 105 (96-108) mmol/L Carbon Dioxide 23 (22-29) mmol/L Anion Gap 12 (12-20) BUN 30 H (9-16) mg/dL Creatinine 1.00 (0.5-1.4) mg/dL Estim Creat Clear Calc 76.0 Estimated GFR > 60 Random Glucose 133 H (60-115) mg/dL Calcium 8.5 (8.4-10.2) mg/dL Total Bilirubin 1.2 H (0.0-1.0) mg/dL AST 74 H (5-37) U/L ALT 38 (0-40) U/L Alkaline Phosphatase 113 (39-117) U/L Total Protein 7.6 (6.5-8.0) g/dL Albumin 3.1 L (3.5-5.0) g/dL Critical Care Time Critical Care Time Critical Care Time: No Discharge Plan Discharge Clinical Impression: Cellulitis Patient Disposition: Admitted As Inpatient Prescriptions: No Action fluoxetine 10 mg Tablet 10 mg PO DAILY methadone [Methadone Intensol] 10 mg/mL Concentrate 45 mg PO DAILY
--- NOTE | 2022-04-11 20:13 | PHA.MEDREC ---
MED REC COMPLETE, METHADONE DOSE WILL NEED TO BE CONFIRMED WITH CLINIC Pharmacy Consult ? Medication Reconciliation Pharmacy has completed the medication reconciliation.
--- NOTE | 2022-04-11 20:32 | P.HPHOSP_ITS ---
History of Present Illness Date of Service: 04/11/22 Attending physician on admission: Remington Curtis Chief Complaint: RLE cellulitis 66 year old male with history of polysubstance abuse (heroin and cocaine) including IVDA, opiate depedence on methadone, hx hep c with compensated cirrhosis, PVD with chronic venous stasis ulcerations of BLE, depression, and former smoker presented to the ED for evaluation for evaluation of recurrent RLE infection worsening over the last 4 days with increased swelling, warmth, and pain. Has had venous ulcerations of the RLE for about 9 years with recurrent cellulitis infections, advised to see Dr. trujillo in vascular but was unable to make appt. Was prescribed and completed full 7 day course of doxycycline prescribed 03/24 but feels infection has only worsened. Reporting clear/yellow drainage from the wounds with foul odor. 8/10 pain, worse when weight bearing. Reports chills and sweats, but no fevers. Last heroin use was yesterday stating he was unable to get his methadone. No etoh use. No leukocytosis. Lactic acid pending. Hypertensive at 150/116, vitals otherwise normal. Venous duplex RLE negative for DVT. TibFib xray negative for osteomyelitis. Blood cultures pending. Received IV ceftriaxone and vancomycin in ED. Review of Systems Review of Systems: General: +chills,sweats. 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 Opioid use disorder Polysubstance abuse Tobacco dependence Varicose veins of right lower extremity with inflammation Venous stasis ulcer Family History Mother CAD (coronary artery disease) ESRD (end stage renal disease) Brother Liver failure Surgical History H/O hernia repair Social History Household Members: None Household Members Other:: Currently residing in a rehab facility Housing: Homeless Housing Other:: Currently residing in a rehab facility Do you presently have visiting nurse or other home services: No Unable to assess alcohol history related to: Unknown Alcohol intake: never Patient Tobacco Use Status: Former Tobacco user Tobacco use type: Cigarette Cigarettes Per Day: 2 Years Smoked: 40 e-Cigarette/Vaping Use: Never Used Second Hand Smoke Exposure: Yes Substance Use Type: Crack/Cocaine and Heroin Advance Directives: No Advance Directives Information Provided: No Advance Directives Date on File: 02/11/21 service: No Current occupational status: disabled Meds Allergies Allergy/AdvReac Type Severity Reaction Status Date / Time trazodone [TRAZODONE] Allergy Intermediate RESTLESS Verified 03/16/22 14:08 LEGS Active Medications: Current Medications Vancomycin HCl (Vancomycin/Ns) 2,000 mg in 520 mls @ 260 mls/hr IV ONCE ONE Stop: 04/11/22 21:35 Pharmacy Consult (Consult Rx Perform Med Rec) 1 each MISCELLANE ONCE PRN PRN Reason: Consult order Home Medications Medication Instructions Recorded Confirmed Last Taken Type fluoxetine 10 mg tablet 10 mg PO DAILY 04/11/22 04/11/22 Unknown History methadone 10 mg/mL oral 45 mg PO DAILY 04/11/22 Unknown History concentrate (Methadone Intensol) Physical Exam Vital Signs and Narrative: Vital Signs: Last Vital Signs Temp 98.3 F 04/11/22 16:56 Pulse 80 04/11/22 16:56 Resp 18 04/11/22 16:56 BP 150/116 H 04/11/22 16:56 Pulse Ox 99 04/11/22 16:56 O2 Del Method 04/11/22 16:56 BMI result Body Mass Index 24.3 Constitutional - Awake and Alert, No apparent distress Eyes - PERRLA, EOMI Cardiovascular - III/ systolic murmur, S1S2, RRR, No edema Respiratory - Normal lung expansion, Normal respiratory effort, No respiratory distress, CTA bilaterally Gastrointestinal - NT / ND; +BS; No rebound or guarding Extremities - +RLE swelling with ttp with thickened venous stasis dermatitis with shallow ulcerations (see photo) Skin - Warm/Dry. Se eextremities Neurological - Alert & oriented x3, CN II-XII in tact. 5/5 strength BLE and BUE Psychological - Appropriate affect Results Labs CBC and Chem 7: 04/11/22 17:01 04/11/22 17:01 Labs: Laboratory Results - last 24 hr 04/11/22 04/11/22 17:01 17:01 MCV 82.5 MCH 26.2 L MCHC 31.8 RDW 17.3 H Plt Count 115 L MPV 9.4 Immature Gran % (Auto) 0.2 Neut % (Auto) 62.9 Lymph % (Auto) 18.0 L [place] % (Auto) 13.7 H Eos % (Auto) 4.4 H Baso % (Auto) 0.8 Lymph # (Auto) 1.1 L [place] # (Auto) 0.8 Eos # (Auto) 0.3 Baso # (Auto) 0.1 Abs Immat Gran (auto) 0.01 Absolute Neuts (auto) 3.8 Absolute Nucleated RBC 0.000 Nucleated RBC % (auto) 0.0 Anion Gap 12 Estim Creat Clear Calc 76.0 Estimated GFR > 60 Random Glucose 133 H Calcium 8.5 Total Bilirubin 1.2 H AST 74 H ALT 38 Alkaline Phosphatase 113 Total Protein 7.6 Albumin 3.1 L Imaging Radiologist's Impressions: Impressions Tibia/Fibula X-Ray 04/11/22 20:00 IMPRESSION: No radiographic signs of osteomyelitis. Probable soft tissue swelling likely reflects edema, cellulitis, or combination of these. Assessment and Plan (1) Cellulitis: Status: Acute (2) Chronic cutaneous venous stasis ulcer: Status: Acute (3) Opiate dependence: Status: Acute Plan 66 year old male with history of polysubstance abuse (heroin and cocaine) including IVDA, opiate depedence on methadone, hx hep c with compensated cirrhosis, PVD with chronic venous stasis ulcerations of RLE, depression, and former smoker admitted due to cellulitis RLE having failed oral abx treatment with doxycycline 1-Acute cellulitis RLE- recurrent, recently completed outpt doxycycline completed -No leukocytosis. Hypertensive, vitals otherwise normal. Lactic acid pending. Blood cultures pending. Xray tib/fib negative for osteomyelitis. Venous duplex n egative for DVT -Received IV ceftriaxone and vanco in ED. Continue cefepime vanco IV at risk for MRSA and pseudomonas d/t IVDA 2-Chronic venous stasis ulcer with cellulitis -Recommend outpt follow up with Dr. Trujillo in vascular -Tx as above 3-Opiate dependence- on methadone -Continue methadone 45mg daily -[facility] 4-Cirrhosis, compensated with history of hepatitis C- stable -LFTs at baseline 5-Depression- stable -Continue fluoxetine DVT prophylaxis- lovenox Full code Patient requires inpatient stay of at least 2 midnights for treatment of RLE cellulitis who failed outpt oral abx and requires IV antibiotics and is at risk for serious infection including MRSA or pseudomonas. Quality Stroke Does the patient have a stroke diagnosis?: No VTE Prior VTE?: No VTE Risk Level:: Medical - moderate - high VTE Device Contraindication: Treatment Not Indicated VTE Drug Contraindication: N/A - Med Ordered
[2022-04-11 21:04] VITALS: BP 157/71; PULSE 80; RESP 16; TEMP 37.3; O2SAT 100
[2022-04-11 21:33] LABS: Lactic Acid 0.9 mmol/L (0.5-2.0)
--- NOTE | 2022-04-11 21:40 | PHA.PROG ---
Admission Date/Time: April 11, 2022 21:19 Indication: skin and skin structure Weight in k.111 kg Adjusted body weight in Kg: [place] body weight in Kg: Obesity Dosing Indication % IBW: Serum Creatinine - Last 168 Hours 04/11/22 17:01 Creatinine 1.00 Estimated CrCl and GFR - Last 168 Hours 04/11/22 17:01 Estim Creat Clear Calc 76.0 Estimated GFR > 60 Vancomycin Loading Dose: 2000 mg Current Vancomycin Dosing Regimen:750 mg q 12 hours Vancomycin Monitoring using AUC goal of 400 - 600 range with trough as surrogate marker: Date and Time for next Vancomycin Level to be drawn:04/13/22 0800 Pharmacist Comments on Vancomycin Plan: precicted AUC of 514 Vancomycin dosing will take advantage of Nuvilex as a clinical decision support tool that uses Bayesian modeling to calculate individual patient's pharmacokinetic parameters and forecast the patient's drug concentration time course with the target goal AUC 24 range of 400 - 600 mg/L/hr.
[2022-04-11 21:55] LABS: C Reactive Protein 1.25 mg/dL (< or = 0.50)
--- NOTE | 2022-04-11 22:00 | PC.NURSE ---
Assumed care of pt. from the waiting room. Pt. is alert and oriented. Pt. stated he was hungry and hadn't eaten. Pt. provided with a ham sandwich. Pt. c/o pain and tenderness in wound on right leg. IV inserted and IV abx administered per OCT. Pt. resting comfortably in hallway.
[2022-04-11] MEDS: cefTRIAXone sodium 1 GM in 0.9 % Sodium Chloride 50 ML IV (22:03)
[2022-04-12] VITALS (8 sets, daily range): BP systolic 115–150; BP diastolic 64–79; PULSE 62–76; RESP 15–18; TEMP 36.3–37.2; O2SAT 96–99
[2022-04-12] MEDS: cefEPime HCl 2 GM in 0.9 % Sodium Chloride 50 ML IV ×4 (00:48→20:55)
[2022-04-12] MEDS: Enoxaparin Sodium 40 MG/0.4 ML SYRINGE SUBCUT ×2 (00:49→20:55)
[2022-04-12 04:04] LABS: COVID-19 Test Negative (Negative)
[2022-04-12] MEDS: vancomycin HCL 750 MG in 0.9 % Sodium Chloride 250 ML 265 MG IV ×2 (09:01→20:54)
[2022-04-12] MEDS: 0.9 % Sodium Chloride Flush 3 ML SYRINGE IVFLUSH ×3 (09:01→21:03)
[2022-04-12] MEDS: FLUoxetine HCl 10 MG CAPSULE PO (09:01)
[2022-04-12 09:16] LABS: Creatinine Clr Calc Pharmacy 92.7; Estimated Glomerular Filt Rate > 60
--- NOTE | 2022-04-12 09:23 | HE.PHANOTE ---
Vancomycin Dosing Addendum Patient received a proper load of 2000 mg. Patient's Scr is down from yesterday, 0.82 mg/dL from 1 mg/dL. Patient has not received any maintenance doses yet, only load as been received. Renal function improving. Continue regimen of 750 mg Q12h. Predicted AUC 514 mg/L/hr, trough 17.4 mg/L
--- NOTE | 2022-04-12 09:39 | MHC.CM.PN ---
Patient comes [place] [facility] at [facility] and the tentative goal is for Patient to return, once medically cleared for dc. CM has initiated and will follow for dc planning. Patient has a history of IVDA and he is presently on Methadone(Patient may benefit from a Care Team Consult). Patient is homeless and has received Pfizer/CovKissMyAds vax X2. PCP is from [facility]. IMM to be addressed with Patient once on the 3rd floor today.
--- NOTE | 2022-04-12 10:15 | MHC.CM.PN ---
CORRECTION TO PREVIOUS CM NOTE: Patient has been at [facility] in the past and [facility] will follow for this admission, but Patient did NOT come to [facility] directly from [facility].
--- NOTE | 2022-04-12 10:43 | HE.PHANOTE ---
[methadone verification] Pharmacy received form from [facility] dosed at 45mg daily
--- NOTE | 2022-04-12 11:51 | HO.PM.IMPN ---
Subjective Subjective Date of Service: 04/12/22 Interval History: being followed for right lower extremity cellulitis, has chronic right lower extremity swelling noted to have worsening redness and drainage from open sores time 4 days , complaining of two episode of loose stools overnight, complaining of chills, tolerating diet ,denies nausea, vomiting no other acute issues since admission. 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 Eyes anicteric sclera Neck no JVD. CVS regular rate rhythm, Respiratory lungs clear to auscultation, no respiratory distress, no wheeze, no rhonchi. Gastrointestinal abdomen soft, nontender, bowel sounds audible, no guarding , no rigidity. Extremities right lower extremity swelling, with venous stasis skin discoloration, multiple shallow ulcers Neuro nonfocal psych appropriate affect Objective Data Active Medications Enoxaparin Sodium (Enoxaparin Sodium 40 Mg/0.4 Ml Syringe) 40 mg SUBCUT Q24H [facility] Last Admin: 04/12/22 00:49 Dose: 40 mg Documented By: PAUL Fluoxetine HCl (Fluoxetine Hcl 10 Mg Capsule) 10 mg PO DAILY [facility] Last Admin: 04/12/22 09:01 Dose: 10 mg Documented By: CHERYL Cefepime HCl 2 gm/ Sodium (Chloride) 50 mls @ 100 mls/hr IV Q8H [facility] Last Infusion: 04/12/22 07:24 Dose: 0 mls/hr Documented By: DIONICIO Vancomycin HCl 750 mg/ Sodium (Chloride) 265 mls @ 265 mls/hr IV Q12H [facility] Last Infusion: 04/12/22 10:31 Dose: 0 mls/hr Documented By: DALILA Methadone HCl (Methadone Hcl 20 Mg/2 Ml Oral.Conc) 45 mg PO DAILY [facility] Pharmacy Consult (Consult Rx Perform Med Rec) 1 each MISCELLANE ONCE PRN PRN Reason: Consult order Pharmacy Consult (Consult Rx Vancomycin Dosing) 1 each MISCELLANE DAILY PRN PRN Reason: Consult order Sodium Chloride (0.9 % Sodium Chloride Flush 3 Ml Syringe) 3 ml IVFLUSH QSHIFT [facility] Last Admin: 04/12/22 09:01 Dose: 3 ml Documented By: CHERYL Labs CBC & Chem 7: 04/11/22 17:01 04/12/22 08:06 Labs: Laboratory Results - last 24 hr 04/11/22 04/11/22 04/11/22 17:01 17:01 21:13 MCV 82.5 MCH 26.2 L MCHC 31.8 RDW 17.3 H Plt Count 115 L MPV 9.4 Immature Gran % (Auto) 0.2 Neut % (Auto) 62.9 Lymph % (Auto) 18.0 L [place] % (Auto) 13.7 H Eos % (Auto) 4.4 H Baso % (Auto) 0.8 Lymph # (Auto) 1.1 L [place] # (Auto) 0.8 Eos # (Auto) 0.3 Baso # (Auto) 0.1 Abs Immat Gran (auto) 0.01 Absolute Neuts (auto) 3.8 Absolute Nucleated RBC 0.000 Nucleated RBC % (auto) 0.0 Anion Gap 12 Estim Creat Clear Calc 76.0 Estimated GFR > 60 Random Glucose 133 H Lactic Acid 0.9 Calcium 8.5 Total Bilirubin 1.2 H AST 74 H ALT 38 Alkaline Phosphatase 113 C-Reactive Protein 1.25 H Total Protein 7.6 Albumin 3.1 L COVID-19 (JACQUE) COVID-19 Clin Com 04/12/22 04/12/22 03:44 08:06 MCV MCH MCHC RDW Plt Count MPV Immature Gran % (Auto) Neut % (Auto) Lymph % (Auto) [place] % (Auto) Eos % (Auto) Baso % (Auto) Lymph # (Auto) [place] # (Auto) Eos # (Auto) Baso # (Auto) Abs Immat Gran (auto) Absolute Neuts (auto) Absolute Nucleated RBC Nucleated RBC % (auto) Anion Gap Estim Creat Clear Calc 92.7 Estimated GFR > 60 Random Glucose Lactic Acid Calcium Total Bilirubin AST ALT Alkaline Phosphatase C-Reactive Protein Total Protein Albumin COVID-19 (JACQUE) Negative COVID-19 Clin Com See Note Assessment and Plan (1) Chronic cutaneous venous stasis ulcer: Status: Acute (2) Cellulitis: Status: Acute (3) Opioid use disorder: Status: Acute (4) Venous stasis ulcer: Status: Acute (5) Opiate dependence: Status: Acute Plan 66-year-old male with past medical history of chronic bilateral venous stasis ulcers a history of noncompliance ,recently finish course of doxycycline came to [facility] with worsening right lower extremity swelling pain and open ulcers ?Right lower extremity cellulitis /with multiple venous stasis ulcers ?has chronic ulcers, noncompliant with followups and medications ?continue IV vancomycin and cefepime day 2 x-ray tib-fib negative for osteomyelitis, venous duplex negative for DVT opioid use disorder continue methadone home dose/active IV drug use,[facility] hepatitis C outpatient GI follow-up, stable LFTs depression continue fluoxetine code status full code DVT prophylaxis with Lovenox patient need continued inpatient? hospitalization due to right lower extremity cellulitis and open ulcers , on IV antibiotics await surgical input. Quality Stroke Does the patient have a stroke diagnosis?: No VTE Prior VTE?: No VTE Risk Level:: Medical - moderate - high VTE Device Contraindication: Treatment Not Indicated VTE Drug Contraindication: N/A - Med Ordered
[2022-04-12] MEDS: methADONE HCl 20 MG/2 ML ORAL.CONC 45 MG PO (12:22)
--- NOTE | 2022-04-12 12:23 | MHC.CM.PN ---
CM met with Patient at bedside and addressed IMM with him, providing him with the original and placing a copy on the chart. Patient gets his Methadone from [facility].
[2022-04-13 03:51] VITALS: BP 142/67; PULSE 67; RESP 17; TEMP 36.9; O2SAT 97
[2022-04-13] MEDS: cefEPime HCl 2 GM in 0.9 % Sodium Chloride 50 ML IV ×3 (05:28→22:08)
[2022-04-13] MEDS: FLUoxetine HCl 10 MG CAPSULE PO (07:48)
[2022-04-13] MEDS: methADONE HCl 20 MG/2 ML ORAL.CONC 45 MG PO (07:55)
[2022-04-13 08:00] VITALS: BP 134/70; PULSE 59; RESP 18; TEMP 36.8; O2SAT 98
[2022-04-13 08:15] LABS: Estimated Glomerular Filt Rate > 60
[2022-04-13 08:41] LABS: Vancomycin Trough 14.1 mcg/mL (10.0-20.0)
--- NOTE | 2022-04-13 08:45 | HE.PHANOTE ---
Vancomycin Dosing Addendum Trough today was therapeutic at 14.1. Renal function is stable. Continue current regimen vanco 750 mg Q12H. Expected AUC 473 with a trough of 15.8. Next level 04/14/22 @ 1999. Leonardo CentenoD
[2022-04-13] MEDS: 0.9 % Sodium Chloride Flush 3 ML SYRINGE IVFLUSH ×3 (09:02→20:42)
[2022-04-13] MEDS: vancomycin HCL 750 MG in 0.9 % Sodium Chloride 250 ML 265 MG IV ×2 (09:52→22:48)
[2022-04-13 11:09] VITALS: BP 138/67; PULSE 67; RESP 18; TEMP 36.4; O2SAT 99
[2022-04-13 15:28] VITALS: BP 134/73; PULSE 70; RESP 18; TEMP 36.5; O2SAT 97
--- NOTE | 2022-04-13 15:40 | HO.PM.IMPN ---
Subjective Subjective Date of Service: 04/13/22 Interval History: feeling better this morning, denies leg pain, no overnight fever chills no other acute issues, tolerating diet without nausea vomiting abdominal pain or diarrhea. Review of Systems Review of Systems: Yes all other systems are reviewed and are negative Physical Exam Vital Signs: Vital Signs: Last Vital Signs Temp 97.7 F 04/13/22 15:28 Pulse 70 04/13/22 15:28 Resp 18 04/13/22 15:28 BP 134/73 04/13/22 15:28 Pulse Ox 97 04/13/22 15:28 O2 Del Method 04/13/22 15:28 BMI result Body Mass Index 24.3 Const: Other: General resting comfortably in no acute distress.? Eyes? anicteric sclera Neck no JVD. CVS? regular rate rhythm, Respiratory lungs clear to auscultation, no respiratory distress, no wheeze, no rhonchi. Gastrointestinal abdomen soft, nontender, bowel sounds audible, no guarding , no rigidity. Extremities? right lower extremity? swelling Improving, venous stasis skin? discoloration, multiple shallow ulcers Neuro nonfocal psych appropriate affect Objective Data Active Medications Enoxaparin Sodium (Enoxaparin Sodium 40 Mg/0.4 Ml Syringe) 40 mg SUBCUT Q24H [facility] Last Admin: 04/12/22 20:55 Dose: 40 mg Documented By: NELY Fluoxetine HCl (Fluoxetine Hcl 10 Mg Capsule) 10 mg PO DAILY [facility] Last Admin: 04/13/22 07:48 Dose: 10 mg Documented By: JOSIE Cefepime HCl 2 gm/ Sodium (Chloride) 50 mls @ 100 mls/hr IV Q8H [facility] Last Infusion: 04/13/22 14:09 Dose: 0 mls/hr Documented By: JOSIE Vancomycin HCl 750 mg/ Sodium (Chloride) 265 mls @ 265 mls/hr IV Q12H [facility] Last Infusion: 04/13/22 11:05 Dose: 0 mls/hr Documented By: JOSIE Methadone HCl (Methadone Hcl 20 Mg/2 Ml Oral.Conc) 45 mg PO DAILY [facility] Last Admin: 04/13/22 07:55 Dose: 45 mg Documented By: JOSIE Pharmacy Consult (Consult Rx Perform Med Rec) 1 each MISCELLANE ONCE PRN PRN Reason: Consult order Pharmacy Consult (Consult Rx Vancomycin Dosing) 1 each MISCELLANE DAILY PRN PRN Reason: Consult order Sodium Chloride (0.9 % Sodium Chloride Flush 3 Ml Syringe) 3 ml IVFLUSH QSHIFT [facility] Last Admin: 04/13/22 09:02 Dose: 3 ml Documented By: JOSIE Labs CBC & Chem 7: 04/11/22 17:01 04/13/22 07:40 Labs: Laboratory Results - last 24 hr 04/13/22 04/13/22 07:40 07:40 Estim Creat Clear Calc 95.0 Estimated GFR > 60 Vancomycin Trough 14.1 Microbiology Microbiology Results: Microbiology 04/11/22 21:13 Blood Culture - Preliminary Blood - Venous No growth after 24 hours. 04/11/22 21:13 Blood Culture - Preliminary Blood - Venous No growth after 24 hours. Assessment and Plan (1) Chronic cutaneous venous stasis ulcer: Status: Acute (2) Cellulitis: Status: Acute (3) Opioid use disorder: Status: Acute (4) Venous stasis ulcer: Status: Acute (5) Opiate dependence: Status: Acute Plan 66-year-old male with past medical history of chronic bilateral venous stasis ulcers a history of noncompliance ,recently finish course of doxycycline came to [facility] with worsening right lower extremity swelling pain and open ulcers ?Right lower extremity cellulitis /with multiple venous stasis ulcers ?chronic ulcers, noncompliant with followups and medications redness and swelling improving, blood cultures x2, no growth 24 hours ?continue IV vancomycin and cefepime day 3 x-ray tib-fib negative for osteomyelitis, venous duplex negative for DVT, obtained vascular surgery consultation opioid use disorder continue methadone home dose/active IV drug use,Wishes to be discharged to [facility], drug abuse social worker arranging for safe discharge, currently residing with systems hepatitis C outpatient GI follow-up, stable LFTs depression continue fluoxetine code status full code DVT prophylaxis with Lovenox patient need continued inpatient? hospitalization due to right lower extremity cellulitis and open ulcers , on IV antibiotics await surgical input. Quality Stroke Does the patient have a stroke diagnosis?: No VTE Prior VTE?: No VTE Risk Level:: Medical - moderate - high VTE Device Contraindication: Treatment Not Indicated VTE Drug Contraindication: N/A - Med Ordered
[2022-04-13 19:31] VITALS: BP 144/71; PULSE 69; RESP 18; TEMP 36.7; O2SAT 97
[2022-04-13] MEDS: Enoxaparin Sodium 40 MG/0.4 ML SYRINGE SUBCUT (22:09)
[2022-04-14] VITALS (7 sets, daily range): BP systolic 121–144; BP diastolic 58–78; PULSE 60–75; RESP 15–17; TEMP 36.3–36.9; O2SAT 95–98
[2022-04-14] MEDS: cefEPime HCl 2 GM in 0.9 % Sodium Chloride 50 ML IV (05:38)
[2022-04-14 07:16] LABS: Creatinine Clr Calc Pharmacy 93.8; Estimated Glomerular Filt Rate > 60
--- NOTE | 2022-04-14 09:06 | HE.PHANOTE ---
REINALDO SPAULDING CONTINUE CURRENT DOSE; NEXT TROUGH DUE 04/14 @1999
[2022-04-14] MEDS: 0.9 % Sodium Chloride Flush 3 ML SYRINGE IVFLUSH ×3 (09:09→22:44)
[2022-04-14] MEDS: FLUoxetine HCl 10 MG CAPSULE PO (09:09)
[2022-04-14] MEDS: methADONE HCl 20 MG/2 ML ORAL.CONC 45 MG PO (09:09)
--- NOTE | 2022-04-14 09:09 | P.CONGS_ITS ---
History of Present Illness Consult details Consult date: 04/14/22 Reason for consult: wound care Narrative: 66-year-old gentleman well known to me for venous stasis ulcers. He has seen me in the past and has failed to follow-up. He presented to the hospital with recurrent cellulitis and nonhealing ulcer he now presents to us for vascular evaluation. At the time of my exam he is relatively comfortable. Pain well controlled. No issues over the last day or 2. Review of Systems Review of Systems: Yes all other systems are reviewed and are negative Constitutional: Constitutional: Reports no additional constitutional compla ints ENT: Reports Normal hearing present Cardiovascular: Cardiovascular: Denies chest pain, Denies chest pain at rest, Denies chest pain with activity and Denies pedal edema Respiratory: Respiratory: Denies cough Gastrointestinal: Gastrointestinal: Denies abdominal pain Musculoskeletal: Musculoskeletal: Denies abnormal gait, Denies muscle cramps and Denies radiating pain into limb Integumentary/Breasts: Skin/Breast: Denies skin ulcer and Denies wounds Neurologic: Reports Normal hearing present and Denies abnormal gait Psychiatric: Psychiatric: Reports no additional psychiatric complaints [facility] Past Medical History Medical History (Updated 04/11/22 @ 21:09 by JESSICA Ghotra) Anemia Cellulitis Chronic cutaneous venous stasis ulcer Cirrhosis Depression Former smoker Hepatitis C Infected wound 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 Opioid use disorder Polysubstance abuse Tobacco dependence Varicose veins of right lower extremity with inflammation Venous stasis ulcer Family History Family History Mother CAD (coronary artery disease) ESRD (end stage renal disease) Brother Liver failure Surgical History Surgical History H/O hernia repair Social History Social History Household Members: Other Household Members Other:: Currently residing in a rehab facility Housing: Homeless Housing Other:: Currently residing in a rehab facility Do you presently have visiting nurse or other home services: No Unable to assess alcohol history related to: Unknown Alcohol intake: never Patient Tobacco Use Status: Former Tobacco user Tobacco use type: Cigarette Cigarettes Per Day: 2 Years Smoked: 40 e-Cigarette/Vaping Use: Never Used Second Hand Smoke Exposure: Yes Substance Use Type: Crack/Cocaine and Heroin Advance Directives Date on File: 02/11/21 service: No Current occupational status: disabled Meds Allergies Allergy/AdvReac Type Severity Reaction Status Date / Time trazodone [TRAZODONE] Allergy Intermediate RESTLESS Verified 03/16/22 14:08 LEGS Active Medications: Current Medications Enoxaparin Sodium (Enoxaparin Sodium 40 Mg/0.4 Ml Syringe) 40 mg SUBCUT Q24H [facility] Last Admin: 04/13/22 22:09 Dose: 40 mg Fluoxetine HCl (Fluoxetine Hcl 10 Mg Capsule) 10 mg PO DAILY [facility] Last Admin: 04/13/22 07:48 Dose: 10 mg Cefepime HCl 2 gm/ Sodium (Chloride) 50 mls @ 100 mls/hr IV Q8H [facility] Last Infusion: 04/14/22 06:23 Dose: Infused Vancomycin HCl 750 mg/ Sodium (Chloride) 265 mls @ 265 mls/hr IV Q12H [facility] Last Infusion: 04/13/22 23:50 Dose: Infused Methadone HCl (Methadone Hcl 20 Mg/2 Ml Oral.Conc) 45 mg PO DAILY [facility] Last Admin: 04/13/22 07:55 Dose: 45 mg Pharmacy Consult (Consult Rx Perform Med Rec) 1 each MISCELLANE ONCE PRN PRN Reason: Consult order Pharmacy Consult (Consult Rx Vancomycin Dosing) 1 each MISCELLANE DAILY PRN PRN Reason: Consult order Sodium Chloride (0.9 % Sodium Chloride Flush 3 Ml Syringe) 3 ml IVFLUSH QSHIFT [facility] Last Admin: 04/13/22 20:42 Dose: 3 ml Home Medications Medication Instructions Recorded Confirmed Last Taken Type fluoxetine 10 mg tablet 10 mg PO DAILY 04/11/22 04/11/22 Unknown History methadone 10 mg/mL oral 45 mg PO DAILY 04/11/22 04/12/22 04/10/22 History concentrate (Methadone Intensol) Physical Exam 2 Vital Signs: Vital Signs: Last Vital Signs Temp 98.4 F 04/14/22 08:00 Pulse 60 04/14/22 08:00 Resp 16 04/14/22 08:00 BP 121/61 04/14/22 08:00 Pulse Ox 96 04/14/22 08:00 O2 Del Method 04/14/22 08:00 BMI result Body Mass Index 24.3 Const: General: cooperative, healthy appearing and comfortable Orientation/consciousness: oriented to person, oriented to place and oriented to time HEENT: Head: Yes normal to inspection Neck: Neck: Yes normal visual inspection Carotids: no bruits Chest: Chest palpation & inspection: normal inspection of the chest Resp: Effort & Inspection: normal respiratory effort and able to speak in complete sentences Auscultation: clear to auscultation bilaterally, no cr ackles, no rales, no rhonchi and no wheezes Cardio: Rate: regular rate Rhythm: regular rhythm Heart sounds: S1 normal heart sound present and S2 normal heart sound present Bruits: no carotid bruits Peripheral pulses: Peripheral pulses 2+ throughout GI: Inspection: Yes normal to inspection Skin: Wounds: wounds noted ( Right lateral leg ulcer) Hair: normal Neuro: General: oriented to person, oriented to place and oriented to time Cranial nerves: Yes CN's II-XII intact bilaterally and Yes Normal hearing present Cognition (Neuro): normal cognition Motor exam (neuro): 5/5 motor strength present throughout Extrem: Other: venous exam: No significant superficial varicosities or spider telangiectasia s, minimal edema General: No clubbing, No cyanosis and No edema Psych: Appearance: grossly normal Mental Status: mental status grossly normal Speech and movement: Normal speech and movement present Results Labs Result diagrams: 04/11/22 17:01 04/14/22 05:56 Labs: [facility] 04/14/22 05:56 Creatinine 0.81 All other labs normal. Assessment and Plan (1) Varicose veins of right lower extremity with inflammation: Status: Acute in short he does needed venous ablation. He has failed to follow-up twice. One time he was scheduled for the procedure and he locked his daughter out of his house. The 2nd time he was scheduled from a facility he left [place]. We have made several attempts to try to help this gentleman. Unfortunately he is has been refusing care. Would be happy to see him as an outpatient if he shows up. (2) Venous stasis ulcer: Status: Acute Plan Would [facility] of wounds as an outpatient. Thank you for allowing us to assist in his care. Procedures Date of Service Date of Service: 04/14/22
[2022-04-14] MEDS: vancomycin HCL 750 MG in 0.9 % Sodium Chloride 250 ML 265 MG IV (09:10)
[2022-04-14] MEDS: Amoxicillin/Potassium Clav 875 MG TABLET PO ×2 (11:21→22:44)
--- NOTE | 2022-04-14 12:38 | MHC.CM.PN ---
Addendum entered by Sylvia Godoy 04/14/22 13:09: [facility] ASKING FOR WOUND CARE NOTE/INSTRUCTION AND PT GERMAIN MCKEON AWARE Original Note: PATIENT HAS NO IV ABX NEEDS. [facility] is unable to accept with no skill. this policy writer sales asking if p.t. and wound care would be sufficient. Case management waiting for answer
--- NOTE | 2022-04-14 14:02 | MHC.CM.PN ---
IF PATIENT IS ACCEPTED AT [facility] TOMORROW, HE WILL NEED TO DOSE HERE FIRST. LAST DOSE LETTER AND DC SUMMARY TO BE FAXED TO JUAN GUTIERREZ @ [phone] ([facility] [place])
--- NOTE | 2022-04-14 15:05 | P.PNIM_ITS ---
Subjective Subjective Date of Service: 04/14/22 Interval History: Offers no acute complaints, denies right leg pain, denies fever chills, tolerating diet no nausea, no vomiting, complaining of 2 loose stools, with no associated abdominal cramping no foul odor, no acute overnight issues. Review of Systems [employer] no headache no dizziness CVS no chest pain, no palpitation no urgency, no frequency Review of Systems: Yes all other systems are reviewed and are negative Physical Exam Vital Signs: Vital Signs: Last Vital Signs Temp 98.4 F 04/14/22 11:40 Pulse 61 04/14/22 11:40 Resp 16 04/14/22 11:40 BP 124/58 L 04/14/22 11:40 Pulse Ox 98 04/14/22 11:40 O2 Del Method 04/14/22 11:40 BMI result Body Mass Index 24.3 Const: Other: General resting comfortably in no acute distress.? Eyes? anicteric sclera Neck no JVD. CVS? regular rate rhythm, Respiratory lungs clear to auscultation, no respiratory distress, no wheeze, no rhonchi. Gastrointestinal abdomen soft, nontender, bowel sounds audible, no guarding , no rigidity. Extremities? right lower extremity? swelling? Improved, no pitting edema, right calf bigger than left, venous stasis skin? discoloration, multiple shallow ulcers mild serosanguineous drainage Neuro nonfocal psych appropriate affect Objective Data Active Medications Amoxicillin/Clavulanate Potassium (Amoxicillin/Potassium Clav 875 Mg Tablet) 875 mg PO Q12H [facility] Last Admin: 04/14/22 11:21 Dose: 875 mg Documented By: ARACELIS Doxycycline Hyclate (Doxycycline Hyclate 100 Mg Tablet) 100 mg PO Q12H [facility] Last Admin: 04/14/22 11:21 Dose: 100 mg Documented By: ARACELIS Enoxaparin Sodium (Enoxaparin Sodium 40 Mg/0.4 Ml Syringe) 40 mg SUBCUT Q24H [facility] Last Admin: 04/13/22 22:09 Dose: 40 mg Documented By: MAYA Fluoxetine HCl (Fluoxetine Hcl 10 Mg Capsule) 10 mg PO DAILY [facility] Last Admin: 04/14/22 09:09 Dose: 10 mg Documented By: ARACELIS Methadone HCl (Methadone Hcl 20 Mg/2 Ml Oral.Conc) 45 mg PO DAILY [facility] Last Admin: 04/14/22 09:09 Dose: 45 mg Documented By: ARACELIS Pharmacy Consult (Consult Rx Perform Med Rec) 1 each MISCELLANE ONCE PRN PRN Reason: Consult order Pharmacy Consult (Consult Rx Vancomycin Dosing) 1 each MISCELLANE DAILY PRN PRN Reason: Consult order Sodium Chloride (0.9 % Sodium Chloride Flush 3 Ml Syringe) 3 ml IVFLUSH QSHIFT [facility] Last Admin: 04/14/22 09:09 Dose: 3 ml Documented By: ARACELIS Labs CBC & Chem 7: 04/11/22 17:01 04/14/22 05:56 Labs: Laboratory Results - last 24 hr 04/14/22 05:56 Estim Creat Clear Calc 93.8 Estimated GFR > 60 Microbiology Microbiology Results: Microbiology 04/11/22 21:13 Blood Culture - Preliminary Blood - Venous No growth after 48 hours. 04/11/22 21:13 Blood Culture - Preliminary Blood - Venous No growth after 48 hours. Assessment and Plan (1) Chronic cutaneous venous stasis ulcer: Status: Acute (2) Cellulitis: Status: Acute (3) Opioid use disorder: Status: Acute (4) Venous stasis ulcer: Status: Acute (5) Opiate dependence: Status: Acute Plan 66-year-old male with past medical history of chronic bilateral venous stasis ulcers a history of noncompliance ,recently finish course of doxycycline came to [facility] with worsening right lower extremity swelling pain and open ulcers ?Right lower extremity cellulitis /with multiple venous stasis ulcers No fevers normal WBC ?chronic ulcers, noncompliant with followups and medications redness and swelling improved,blood cultures x2, no growth 48 hours ?on IV vancomycin and cefepime day 4 will change to by mouth doxycycline Augm entin for 1 week x-ray tib-fib negative for osteomyelitis, venous duplex negative for DVT, Seen by Dr. Birmingham he recommend outpatient follow-up for venous ablation right lower extremity for varicose vein but patient has failed to follow-up with him x2 in the past Will again recommend outpatient follow-up with Dr. Birmingham Will do Silver alginate dressing with Kerlix wrap to right lower extremity wo unds. Seen by physical therapy they recommend to DC with walker opioid use disorder continue methadone home dose/active IV drug use,Wishes to be discharged to [facility], healthcare social worker arranging for safe discharge, was residing with sister hepatitis C outpatient GI follow-up, stable LFTs depression continue fluoxetine code status full code DVT prophylaxis with Lovenox patient need continued inpatient? hospitalization since need safe discharge to rehab facility , patient is homeless, supervisor case loading arranging for bed Quality Stroke Does the patient have a stroke diagnosis?: No VTE Prior VTE?: No VTE Risk Level:: Medical - moderate - high VTE Device Contraindication: Treatment Not Indicated VTE Drug Contraindication: N/A - Med Ordered
[2022-04-14] MEDS: Enoxaparin Sodium 40 MG/0.4 ML SYRINGE SUBCUT (22:44)
[2022-04-15 03:06] VITALS: BP 127/64; PULSE 60; RESP 16; TEMP 36.5; O2SAT 96
[2022-04-15 07:26] VITALS: BP 113/62; PULSE 57; RESP 18; TEMP 36.6; O2SAT 96
[2022-04-15 07:42] LABS: Creatinine Clr Calc Pharmacy 92.7; Estimated Glomerular Filt Rate > 60
[2022-04-15] MEDS: methADONE HCl 20 MG/2 ML ORAL.CONC 45 MG PO (09:06)
[2022-04-15] MEDS: FLUoxetine HCl 10 MG CAPSULE PO (09:07)
[2022-04-15] MEDS: 0.9 % Sodium Chloride Flush 3 ML SYRINGE IVFLUSH (09:07)
--- NOTE | 2022-04-15 10:02 | MHC.CM.PN ---
Addendum entered by Sylvia Godoy 04/15/22 12:13: LAST DOSE LETTER GIVEN Original Note: [facility] [phone] WILL ARRANGE FOR PATIENT TO TRANSPORT TO [facility] FOR DETOX AND STEP-DOWN UNIT. RN MADE AWARE.
[2022-04-15] MEDS: Amoxicillin/Potassium Clav 875 MG TABLET PO (10:46)
[2022-04-15 11:13] VITALS: BP 125/63; PULSE 61; RESP 18; TEMP 36.1; O2SAT 96
--- NOTE | 2022-04-15 11:56 | PM.DS ---
DS: Providers Provider Date of Service: 04/15/22 Date of admission: 04/11/22 21:19 Primary care physician: [facility] Consults: 04/13/22 09:03 Consult to Vascular Surgery Routine Consulting Provider: Bassem Birmingham Reason for consultation: rt leg ulcers Has provider been notified: No DS: Diagnosis Discharge Diagnosis (1) Chronic cutaneous venous stasis ulcer: Status: Acute (2) Cellulitis: Status: Acute (3) Opioid use disorder: Status: Acute (4) Venous stasis ulcer: Status: Acute (5) Opiate dependence: Status: Acute (6) Physical deconditioning: Status: Acute DS: Summary Hospital Course Hospital Course: Admission note HPI 66 year old male with history of polysubstance abuse (heroin and cocaine) including IVDA, opiate depedence on methadone, hx hep c with compensated cirrhosis, PVD with chronic venous stasis ulcerations of BLE, depression, and former smoker presented to the ED for evaluation for evaluation of recurrent RLE infection worsening over the last 4 days with increased swelling, warmth, and pain. Has had venous ulcerations of the RLE for about 9 years with recurrent cellulitis infections, advised to see Dr. birmingham in vascular but was unable to make appt. Was prescribed and completed full 7 day course of doxycycline prescribed 03/24 but feels infection has only worsened. Reporting clear/yellow drainage from the wounds with foul odor. 8/10 pain, worse when weight bearing. Reports chills and sweats, but no fevers. Last heroin use was yesterday stating he was unable to get his methadone. No etoh use. No leukocytosis. Lactic acid pending. Hypertensive at 150/116, vitals otherwise normal. Venous duplex RLE negative for DVT. TibFib xray negative for osteomyelitis. Blood cultures pending. Received IV ceftriaxone and vancomycin in ED. Hospital course The patient was admitted for evaluation of right lower extremity cellulitis with multiple venous stasis ulcers. Treated with IV antibiotics of vancomycin and cefepime. Evaluated by infectious disease specialist who recommended 1 week of Augmentin and doxycycline as blood cultures came back negative. X-ray of the leg was negative for osteomyelitis. Duplex ultrasound was negative for DVT. Evaluated by Dr. Birmingham from vascular surgery who recommended outpatient follow-up for venous ablation. To do silver alginate dressing with Kerlix wrap to right lower extremity wounds. Evaluated by physical therapy team who recommended a walker. The patient reports ongoing usage of IV drugs. Reported that he is interested in rehab facility. Unable to place him at [facility] but he will be able to go to a different facility as outpatient after discharge. Continue Augmentin and doxycycline for 1 more week To follow-up with Dr. Birmingham in the office for treatment of varicose veins Time Spent with Patient Time attestation: Total time spent providing and/or coordinating discharge services: Discharge coordination time: Greater than 30 minutes Quality: Safe Use of Opioids Does Pt have an Active Cancer Diagnosis on the Problem List?: No Quality: Stroke Does the patient have a stroke diagnosis?: No Physical Exam Vital Signs: Vital Signs: Last Vital Signs Temp 97 F 04/15/22 11:13 Pulse 61 04/15/22 11:13 Resp 18 04/15/22 11:13 BP 125/63 04/15/22 11:13 Pulse Ox 96 04/15/22 11:13 O2 Del Method 04/15/22 11:13 BMI result Body Mass Index 24.3 Const: Other: General resting comfortably in no acute distress.? Eyes? anicteric sclera Neck no JVD. CVS? regular rate rhythm, Respiratory lungs clear to auscultation, no respiratory distress, no wheeze, no rhonchi. Gastrointestinal abdomen soft, nontender, bowel sounds audible, no guarding , no rigidity. Extremities? right lower extremity? swelling? Improved, no pitting edema, right calf bigger than left, venous stasis skin? discoloration, multiple shallow ulcers mild serosanguineous drainage Neuro nonfocal psych appropriate affect DS: Data Data Completed and Pending Completed studies during hospitalization [Text1]: Procedures Detoxification Services for Substance Abuse Treatment (11/28/20) Labs on day of discharge: Laboratory Results - last 24 hr 04/14/22 04/15/22 19:52 05:55 Creatinine 0.82 Estim Creat Clear Calc 92.7 Estimated GFR > 60 Vancomycin Trough 14.0 Preliminary micro results at discharge 04/11/22 21:13 Blood Culture - Preliminary Blood - Venous No growth after 48 hours. 04/11/22 21:13 Blood Culture - Preliminary Blood - Venous No growth after 48 hours. Imaging Venous US: Radiologist's impression: ITS Impressions Tibia/Fibula X-Ray 04/11/22 20:00 IMPRESSION: No radiographic signs of osteomyelitis. Probable soft tissue swelling likely reflects edema, cellulitis, or combination of these. Venous Duplex 04/11/22 20:23 IMPRESSION: No DVT demonstrated in the right lower extremity. Discharge Plan Discharge Patient Disposition: Home, Self-Care Discharge Diagnosis: Right leg cellulitis Venous stasis ulcers Opioid use disorder Referrals: [place], [facility] [Primary Care Provider] - 1 Week Discharge Medications: New doxycycline hyclate 100 mg Tablet 100 mg PO Q12H 7 Days Qty: 14 0RF amoxicillin-pot clavulanate 875-125 mg Tablet 875 mg PO Q12H 7 Days Qty: 13 0RF (DME) Ultra-Light Rollator Misc See Rx Instructions .Route Qty: 1 0RF Rx Instructions: As directed Continued fluoxetine 10 mg Tablet 10 mg PO DAILY methadone [Methadone Intensol] 10 mg/mL Concentrate 45 mg PO DAILY Discharge Orders: Discharge Order (Routine); Ordered 04/15/22 Ordered By: Miah Montenegro Diet: Advance to usual diet Activity on Discharge: As tolerated Stand Alone Forms: Patient Portal Discharge page Activity Restrictions/Additional Instructions: Wound care upon discharge: alginate and Kerlix wrap to be changed daily on right leg. Care Plan Goals: Read below Health Concerns: Read below Plan of Treatment: Read below Assessment: You were admitted to the hospital for right lower extremity swelling and open ulcers. Found to have been evidence of infection that was treated with IV antibiotics with good response over the course of hospital stay as you were evaluated by infectious disease and vascular surgery specialists. Continue Augmentin and doxycycline for 1 more week To follow-up with Dr. Birmingham in the office for treatment of varicose veins
== END 2022-04-15 12:45 | disposition home or self-care (01) | DRG 603 ==
LOC: HO.ED 21:18 → HO.EDOVER 21:31 → HO.S3 04-12 08:52
PROVIDERS: Physician Assistant; Admitting Provider Physician Assistant; Emergency Provider Internal Medicine; Visit Provider Student in an Organized Health Care Education/Training Program
DX: L03.115 Cellulitis of right lower limb (principal); F11.20 Opioid dependence, uncomplicated; L97.819 Non-pressure chronic ulcer of other part of right lower leg with unspecified severity; L97.829 Non-pressure chronic ulcer of other part of left lower leg with unspecified severity; I87.313 Chronic venous hypertension (idiopathic) with ulcer of bilateral lower extremity; K74.60 Unspecified cirrhosis of liver; F32.A Depression, unspecified; F14.10 Cocaine abuse, uncomplicated; B19.20 Unspecified viral hepatitis C without hepatic coma; Z87.891 Personal history of nicotine dependence; Z20.822 Contact with and (suspected) exposure to COVID-19; Z91.14 Patient's other noncompliance with medication regimen; Z91.19 Patient's noncompliance with other medical treatment and regimen; Z86.19 Personal history of other infectious and parasitic diseases; Z79.899 Other long term (current) drug therapy
CPT/HCPCS: 36415; 73590; 80053; 80202; 82565; 83605; 85025; 86140; 87040; 87635; 93971; 97162; 99285; J0692; J0696; J1650; J3370

== ENCOUNTER 2022-07-18 09:27 | Inpatient (IN) | payer MEDICARE, MEDICAID, SELFPAY ==
--- NOTE | ~2022-07-18 | XR_ITS ---
EXAMINATION: XR TIBIA AND FIBULA, RIGHT CLINICAL INFORMATION: Evaluate for osteomyelitis. COMPARISON: Right tibia and fibula 04/11/2022. TECHNIQUE: AP and lateral views of the right tibia and fibula were obtained. FINDINGS: There is mild periosteal thickening involving segments of tibia and fibula similar to previous study 04/11/2022. These findings could be secondary to stress or reactive bone marrow disease or soft tissue cellulitis which is present. No fracture, bony erosive changes seen. The ankle mortise is normal. There is mild bimalleolar soft tissue swelling. XR/XR tibia fibula RT 2V IMPRESSION: 1. Diffuse segments of periosteal thickening involving the tibia and fibula likely secondary to edema, less likely varicosities. However, no varicosities seen at this time. There is bimalleolar soft tissue swelling. No bony erosive changes seen. The bony cortex is normal. 2. No major change compared to previous study 04/11/2022.
--- NOTE | ~2022-07-18 | US_ITS ---
EXAMINATION: US VENOUS ULTRASOUND WITH DOPPLER LOWER EXTREMITY, RIGHT CLINICAL INFORMATION: Swelling COMPARISON: None TECHNIQUE: Ultrasound of the deep veins is performed from the hip to the calf with compression sonography and color and pulse Doppler assessment. Spectral analysis with color-flow imaging is performed. FINDINGS: There is normal venous compression and respiratory variation and augmented flow. The visualized common femoral vein, superficial femoral vein, profunda femoral vein, popliteal vein, shows no evidence of deep venous thrombosis. There is no significant popliteal fossa cyst. If the patient's symptoms persist, followup ultrasound in 5 days 7 days might be of value to exclude proximal propagation from a non-visualized calf vein. US/US venous duplex LE RT IMPRESSION: No DVT demonstrated in the right lower extremity. The peroneal veins however are unable to the visualized by the health advisor
[2022-07-18 09:34] VITALS: BP 126/52; PULSE 64; RESP 18; TEMP 36.6; O2SAT 98; BMI 25.8
--- NOTE | 2022-07-18 09:46 | ECG_ITS ---
Test Reason : clearance Blood Pressure : / mmHG Vent. Rate : 062 BPM Atrial Rate : 062 BPM P-R Int : 164 ms QRS Dur : 086 ms QT Int : 434 ms P-R-T Axes : 068 045 043 degrees QTc Int : 440 ms Normal sinus rhythm Normal ECG When compared with ECG of 25-JUN-2020 16:30, T wave amplitude has increased in Anterior leads Referred By: Susana Sullivan Electronically Signed By:STEFAN CERRATO
--- OUTSIDE RECORDS SUMMARY | 2022-07-18 10:00 | XMS_ITS | Continuity of Care Document ---
:1955 Author Organization [facility] Address [address] [place] [address]- Care Team Providers Name Role Phone Brandee Grey MD Primary Care Physician [place] [facility] 04/25/21 - 05/25/[address] [address]- Attending Physician: Not on Staff, Attending MD Admitting Physician: Not on Staff, Admitting MD Referring Physician: Not on Staff, Referring MD Allergies, Adverse Reactions, Alerts Substance Reaction Severity Status traZODone Active Immunizations Given and Recorded Vaccine Date Status Refusal Reason SARS-CoV-2 (COVID-19) mRNA BNT-162b2 vac 02/24/21 Recorde d Medications Ammonium Lactate 12% Topical 1 applicator, Topically, 2 times a day, 0 Refills, Maintenance, Cream Start Date: 06/19/20 Status: OrderedDoculase 100 mg oral capsule 1 capsule = 100 mg, By Mouth, 2 times a day, PRN for constipation, # 20 capsule, 0 Refills, Maintenance, 04/25/21 12:52:00 EDT, Capsule, [facility], Partial fill upon patient request if the prescription is for a schedule II opioid drug.,... Start Date: 04/25/21 Status: OrderedhydrOXYzine pamoate 25 mg oral capsule = 25 mg, By Mouth, Every 6 hours, PRN Anxiety, 0 Refills, Maintenance, 06/19/20 14:51:00 EST, Capsule, Partial fill upon patient request Start Date: 06/19/20 Status: OrderedPROzac 10 mg oral capsule 10 mg, 1, capsule, By Mouth, Daily, Take 10mg dose while taking linezolid, and can go back to your usual 20mg dose in 2 weeks., # 30 capsule, Refills 0, Tot. Refills 0, Maintenance, 06/19/20 16:17:00 EST, Route to Pharmacy Electronically, [facility]/pharmacy... Start Date: 06/19/20 Stop Date: 07/19/20 Status: OrderedSlow Fe (as elemental iron) 45 mg oral tablet, extended release 1 tablet = 45 mg, By Mouth, Daily, # 30 tablet, 0 Refills, Maintenance, 04/25/21 12:52:00 EDT, ER Tablet, [facility], Partial fill upon patient request if the prescription is for a schedule II opioid drug., 175, cm, 04/25/21 3:26:00 EDT,... Start Date: 04/25/21 Stop Date: 05/25/21 Status: OrderedTylenol 325 mg oral tablet 650 mg, 2, tablet, By Mouth, Every 6 hours, PRN, Refills 0, Maintenance, Pain , Mild, 06/19/20 14:51:00 EST, Partial fill upon patient request Start Date: 06/19/20 Status: Ordered Problem List Condition Effective Dates Status Health Status Informant Lower extremity cellulitis(Confirmed) Active COVID-19(Confirmed) Active Hyponatremia(Confirmed) Active ZAY (acute kidney injury)(Confirmed) Active Leukocytosis(Confirmed) Active Sepsis(Confirmed) Active
--- OUTSIDE RECORDS SUMMARY | 2022-07-18 10:00 | XMS_ITS | Continuity of Care Document ---
:1955 Author Organization [facility] Address [address] [place] [id number]- Care Team Providers Name Role Phone Brandee Grey MD Primary Care Physician [place] [facility] [place]22 - 07/03/[address] [id number] Encounter Diagnosis Facial cellulitis (Final) - 07/01/22 Discharge Disposition: A-D/C Skilled Nursing, Retirement, or Assisted Fac Attending Physician: Saleem Galindo MD Admitting Physician: Kelsi Gordon MD Referring Physician: Not on Staff, Referring MD Allergies, Adverse Reactions, Alerts Substance Reaction Severity Status traZODone Active Immunizations Given and Recorded Vaccine Date Status Refusal Reason SARS-CoV-2 (COVID-19) mRNA BNT-162b2 vac 02/24/21 Recorde d Not Given Vaccine Date Status Refusal Reason tetanus/diphtheria/pertussis, acel(Tdap)1 04/17/22 Not Gi aminta Patient Refuses SARS-CoV-2 mRNA ([id number]) vax 03/25/22 Not Giv en Patient Refuses 1Result Comment: pt refuses adimently Medications Augmentin 875 mg-125 mg oral tablet 1 tablet, By Mouth, Every 12 hours, for 7 days, # 14 tablet, 0 Refills, Acute 07/10/22 12:42:00 EST,07/03/22 12:42:00 EST, Tablet, Partial fill upon patient request if the prescription is for a schedule II opioid drug. Start Date: 07/03/22 Stop Date: 07/10/22 Status: OrderedBenadryl 25 mg oral tablet 50 mg, 2, tablet, By Mouth, Daily at bedtime, PRN as needed for insomnia, # 30 tablet, 0 Refills, Maintenance Start Date: 07/01/22 Status: Ordereddoxycycline hyclate 100 mg oral capsule 1 capsule = 100 mg, By Mouth, 2 times a day, for 7 days, # 14 capsule, 0 Refills, Acute 07/10/22 12:42:00 EST, 07/03/22 12:42:00 EST, Capsule, Partial fill upon patient request if the prescription is for a schedule II opioid drug. Start Date: 07/03/22 Stop Date: 07/10/22 Status: OrderedMethadone = 45 mg, Daily, 0 Refills, Maintenance, 07/01/22 14:36:00 EST, Partial fill upon patient request if the prescription is for a schedule II opioid drug. Start Date: 07/01/22 Status: OrderedMethadone Liquid 45 mg, Solution, By Mouth, 07/03/22 9:00:00 EST Start Date: 07/03/22 Stop Date: 07/03/22 Status: Completedprazosin 1 mg oral capsule 1 mg, Capsule, By Mouth, 07/02/22 21:00:00 EST Start Date: 07/02/22 Stop Date: 07/02/22 Status: Completedprazosin 1 mg oral capsule 1 mg, 1, capsule, By Mouth, Daily at bedtime, # 30 tablet, Refills 0, Maintenance, 07/01/22 14:37:00EST, Partial fill upon patient request if the prescription is for a schedule II opioid drug. Start Date: 07/01/22 Status: OrderedPROzac 20 mg oral capsule 40 mg, 2, capsule, By Mouth, Daily, # 30 capsule, Refills 0, Maintenance, 07/01/22 14:34:00 EST, Partial fill upon patient request if the prescription is for a schedule II opioid drug. Start Date: 07/01/22 Status: Ordered Problem List Condition Confirmation Course Effective Dates Status Health Stat us Informant Lower extremity Confirmed Active cellulitis COVID-19 Confirmed Active Hyponatremia Confirmed Active ZAY (acute kidney Confirmed Active injury) Leukocytosis Confirmed Active Sepsis Confirmed Active Underweight Confirmed Active Results Orders for Microbiology Reports Name Date Blood Culture 07/01/22 Blood Culture #2 07/01/22 Microbiology Reports TEST:Blood Culture, Second Order STATUS:Unauthenticated BODY SITE: SOURCE:Blood COLLECTED DATE/TIME:07/01/22 1:20 AMBlood Culture, Second Order SPECIMEN DESCRIPTION : BLOOD L HAND SPECIAL REQUESTS : NONE CULTURE : NO GROWTH AFTER 48 HOURS REPORT STATUS : PRELIMINARY REPORT TEST:Blood Culture STATUS:Unauthenticated BODY SITE: SOURCE:Blood COLLECTED DATE/TIME:07/01/22 12:51 AMBlood Culture SPECIMEN DESCRIPTION : BLOOD RIGHT ARM SPECIAL REQUESTS : NONE CULTURE : NO GROWTH AFTER 48 HOURS REPORT STATUS : PRELIMINARY REPORT Radiology Reports Exam Date Time Procedure Performing Provider Status 07/01/22 1:[address] Maxilloface W/ Contrast Eric Smith; Auth (Verified) Notes:(CT Maxilloface W/ Contrast) Reason For Exam: Parotid Swelling/MassRESULT: CT Maxilloface W/ Contrast CT Maxilloface W/ Contrast Hx of Present Illness: coming from snf, according to staff presented with bloody drainage out of right ear, fever 102, and auditory hallucinations; Reason: Parotid Swelling Mass; Clinical Question(s):Mastoiditis; IMAGING TECHNIQUE: Multidetector spiral CT without contrast, formatted in 3 planes. Automatic tube modulation and/or iterative dose reconstruction were used optimize scan parameters. CTDIvol Head: 25.80 mGy, DLP Head: 608 mGy*cm. COMPARISON: CT facial bones 07/23/2017 FINDINGS: Periorbital soft tissues: No swelling. Orbital soft tissues: Normal. No hemorrhage or ocular injury. Intracranial soft tissues: No gross abnormality. Frontal bones: No fracture. Orbital blue: No fracture. Nasal bones: No fracture. Frontal processes of maxilla: No fracture. Nasal Septum: No fracture. Anterior nasal spine: Intact. Maxillary bones: No fracture. Alveolus: No fracture or avulsed teeth. Zygomatic arches: No fracture. No overlying soft tissue swelling. Pterygoid plates: Intact bilaterally. Mandible: The portions included on the exam are normal. No fracture or dislocation. Paranasal sinuses: Mild mucosal and polypoid thickening of the right maxillary sinus. Mild mucosal thickening of the left maxillary sinus and ethmoid air cells. Mastoids: Somewhat suboptimal evaluation of the mastoid air cells secondary to no dedicated temporalbone study. Within this limitation, there is no evidence of significant opacification to suggest mastoiditis. Upper cervical spine: Compared to 2017, patient has old appearing fracture deformities involving theleft facets of C2-C4. Soft tissues: Moderate prominence of the right parotid gland, likely reactive. Diffuse soft tissue swelling and superficial skin thickening involving the soft tissues overlying the the right face extending to the level of the mandible without a discrete fluid collection (series 205 image 52). There isalso diffuse skin thickening and soft tissue swelling of the right pinna. A small amount of mixed density fluid is seen in the right inner ear canal which could represent possible blood products (series 203 image 229). IMPRESSION: No significant opacification of the mastoid air cells bilaterally to suggest mastoiditis. Diffuse soft tissue swelling and superficial skin thickening involving the soft tissues overlying the the right face extending to the level of the mandible without a discrete fluid collection. Findingsare consistent with cellulitis. There is also diffuse skin thickening and soft tissue swelling of the right pinna. A small amount ofmixed density fluid is seen in the right inner ear canal which could represent possible blood products. Moderate prominence of the right parotid gland, likely reactive. Dr. Roselia Jules discussed the above findings with ordering provider Dr. Geraldine Garcia via [employer] on 07/01/2022 at 2:52 AM. I have personally reviewed the images and I agree with this report. WSN: [id number] Ordering Physician: Geraldine Garcia Dictated By: Roselia Jules DO Dictated Date/Time: 07/01/22 8:44 am Reviewed By: Javi Horton MD Signed By: Javi Horton MD Signed Date/Time: 07/01/22 8:49 am Transcribed By: ANGELICA Transcribed Date/Time: 07/01/22 3:02 am Vital Signs Most recent to oldest 1 2 3 [Reference Range]: Height 178 cm 178 cm 178 cm (07/03/22 7:52 AM) (07/02/22 7:39 PM) (07/02/22 4:30 PM) Weight 57.6 kg (07/02/22 4:30 PM) Oxygen Saturation [94-100 %] 98 % 99 % 100 % (07/03/22 7:52 AM) (07/02/22 7:39 PM) (07/02/22 4:30 PM) Pulse Rate [55-90 bpm] 65 bpm 65 bpm 71 bpm (07/03/22 7:52 AM) (07/02/22 7:39 PM) (07/02/22 4:30 PM) Body Mass Index [18.5-24.99 18.18 kg/m2 kg/m2] *L* (07/02/22 4:30 PM) Blood Pressure [90-138/55-84 126/65 mm Hg 127/64 mm Hg 124 /71 mm Hg mm Hg] (07/03/22 7:52 AM) (07/02/22 8:48 PM) (07/02/22 7:39 PM) Respiratory Rate [16-30 18 br/min 18 br/min 18 br/mi n br/min] (07/03/22 9:29 AM) (07/03/22 8:29 AM) (07/03/22 7:52 AM) Temperature [96.8-100.4 97.8 DegF 98.7 DegF 98.8 Deg F DegF] (07/03/22 7:52 AM) (07/02/22 7:39 PM) (07/02/22 4:30 PM) Mode of Delivery (Oxygen) Room air Room air Room a ir (07/03/22 7:52 AM) (07/02/22 7:39 PM) (07/02/22 4:30 PM) Blood pressure sites Arm, right Arm, left Arm, right (07/03/22 7:52 AM) (07/02/22 7:39 PM) (07/02/22 4:30 PM) Temperature Route Oral Oral Oral (07/03/22 7:52 AM) (07/02/22 7:39 PM) (07/02/22 4:30 PM) Dry Weight 57.6 kg (07/02/22 4:30 PM) Admission evaluation note Cornelius Severino: MODIFY, PERFORM, MODIFY, MODIFY Event Display: Admission Note Authored Date: Patient: ??RENEE CORNELIUS ? Age:??66 Years?Sex:??Male?:??1955?? Chief Complaint/Reason for Consultation right ear pain History of Present Illness 66-year-old??male with history of??anxiety,??opioid use disorder, cellulitis??presents with right ear pain.?? [facility] [place].?He woke up??3 days ago??and got out of??his bunk??and hit his right ear .?? Today he had increased redness,??pain, swelling??in the area so he presented to the emergency department. ??He denies any hearing loss. ??CT maxillofacial??without mastoiditis, no abscess noted, Consistent with cellulitis. ??He was started on broad-spectrum antibiotics in the emergency department.?? He says that his pain??has improved??significantly since starting antibiotics. denies fever, CP, SOB, abdominal pain, bowel or bladder complaints. Review of Systems CONSTITUTIONAL: ??Denies any fever, chills, changes to weight or fatigue. EYES: Denies any changes to vision, burning or diplopia. HEENT: See HPI CV: Denies any CP, orthopnea, PND, edema, palpitations. PULM: Denies any SOB, wheezing, cough or production of phlegm. ABD: Denies any abdominal pain, N/V/D, heartburn, PRBPR, melena, or changes to bowel habits. : Denies any changes to frequency. ??Denies dysuria, urgency, straining, hematuria, incontinence.? MS: Denies any joint or muscle pain, falls or changes to gait. NEURO: Denies any weakness, numbness, changes to speech confusion or memory loss. SKIN: Denies any rashes or lesions. ?? PSYCH: Denies any depression or anxiety. SIGECAPS negative. Objective Vital Signs?? Temperature: 99 DegF (07/01/22 08:47:00) Temperature Route: Oral (07/01/22 08:47:00) Pulse Rate: 75 bpm (07/01/22 13:15:00) Respiratory Rate:??12 br/min??Low (07/01/22 13:15:00) Systolic Blood Pressure: 110 mm Hg (07/01/22 13:15:00) Diastolic Blood Pressure: 68 mm Hg (07/01/22 13:15:00) Blood pressure sites: Arm, left (07/01/22 13:15:00) Mean Arterial Pressure: 81 mm Hg (07/01/22 08:47:00) Pulse Pressure: 42 mm Hg (07/01/22 13:15:00) Oxygen Saturation:??88 %??Low (07/01/22 13:15:00) Mode of Delivery (Oxygen): Room air (07/01/22 13:15:00) Early Warning Score: 6 (07/01/22 13:46:22) ? Physical Exam General:66 year old??male??lies in bed comfortably in no acute distress HEENT: Right ear??with erythema,??edema??and mild tenderness??no areas of fluctuance?? Card: RRR no murmur, non displaced PMI, no JVD, 2+ radial pulse B/L Resp: CTA B/L, no wheezing, rales, ronchi Abdomen: soft and non tender, bowel sounds WNL Extremities: no pitted edema B/L lower extremities Skin: Without rashes or lesions, good turgor Hem/Lymph: without bruising or lymphadenopathy Psych: appropriate affect Neuro: A&OX3, no focal motor deficits Assessment/Plan 66-year-old??male with history of??anxiety,??opioid use disorder, cellulitis??presents with right ear pain.? Right ear pain Right ear cellulitis CAT scan consistent with cellulitis Started on broad-spectrum antibiotics Improving since he started antibiotics ?? Plan Continue Vanco and Zosyn for now ?? Opioid use disorder Takes 45 mg methadone daily. ??Confirmed with??Shania from??[facility], last dose??06/30 at 11 AM ?? Plan Continue methadone 45 mg daily ?? Chronic medical conditions Anxiety: Continue??Prozac, prazosin, Benadryl as needed ?? DVT:??Lovenox Code: Full Diet: Regular Histories Allergies Allergies ?(Active and Proposed Allergies Only) traZODone? (Severity: Unknown severity, Onset: Unknown) ? Past Medical History/Problem List Active Problems??(6) ZAY (acute kidney injury) COVID-19 Hyponatremia Leukocytosis Lower extremity cellulitis Sepsis ? Past Surgical History Right inguinal hernia repair about 5 years ago ? Social History Quit tobacco and alcohol. ??Has history of opioid use disorder??currently on methadone ? Family History Mom has diabetes and heart disease ?? Medications Home Medications DiphenhydrAMINE (Benadryl 25 mg oral tablet)?50?Milligram?2?tab(s)?By Mouth?Dailyat Bedtime?as needed?as needed for insomnia Fluoxetine (PROzac 20 mg oral capsule)?40?Milligram?2?capsule?By Mouth?Daily Methadone?45?Milligram?Daily Prazosin (prazosin 1 mg oral capsule)?1?Milligram?1?capsule?By Mouth?Daily at bedtime ? Results Recent Labs BLOOD COUNT & DIFF WBC 15.0 k/mm3 (High)?? 07/01/2022 00:51 RBC 4.17 m/mm3 (Low)?? 07/01/2022 00:51 Hgb 11.5 Gm/dL (Low)?? 07/01/2022 00:51 Hct 34.9 % (Low)?? 07/01/2022 00:51 MCV 83.7 femtoliters ()?? 07/01/2022 00:51 MCH 27.6 pg ()?? 07/01/2022 00:51 MCHC 33.0 g/dL ()?? 07/01/2022 00:51 Platelet Count 85 k/mm3 (Low)?? 07/01/2022 00:51 RDW-SD 49.3 femtoliters (High)?? 07/01/2022 00:51 MPV 11.3 femtoliters ()?? 07/01/2022 00:51 Nucleated RBC (Automated) 0.0 #/100 WBC'S ()?? 07/01/2022 00:51 Abs. NRBC 0.0 k/mm3 ()?? 07/01/2022 00:51 Abs. Neut 12.5 k/mm3 (High)?? 07/01/2022 00:51 Abs. Lymph 1.0 k/mm3 ()?? 07/01/2022 00:51 Abs. [place] 1.4 k/mm3 (High)?? 07/01/2022 00:51 Abs. Eo 0.0 k/mm3 ()?? 07/01/2022 00:51 Abs. Baso 0.0 k/mm3 ()?? 07/01/2022 00:51 Neut % 83.1 % (High)?? 07/01/2022 00:51 Lymph % 6.3 % (Low)?? 07/01/2022 00:51 [place] % 9.4 % ()?? 07/01/2022 00:51 Eos % 0.1 % ()?? 07/01/2022 00:51 Baso % 0.2 % ()?? 07/01/2022 00:51 Imm Gran 0.9 % ()?? 07/01/2022 00:51 Abs. Imm Gran 0.1 k/mm3 ()?? 07/01/2022 00:51 ?? CHEM GENERAL Sodium 136 mmol/L ()?? 07/01/2022 00:51 Potassium 4.1 mmol/L ()?? 07/01/2022 00:51 Chloride 102 mmol/L ()?? 07/01/2022 00:51 Bicarbonate Level 23 mmol/L ()?? 07/01/2022 00:51 Anion Gap 11 ()?? 07/01/2022 00:51 Glucose Level 104 mg/dL (High)?? 07/01/2022 00:51 Glucose, POC 107 mg/dL (High)?? 07/01/2022 01:51 BUN 24 mg/dL (High)?? 07/01/2022 00:51 Creatinine-Blood 1.0 mg/dL ()?? 07/01/2022 00:51 Estimated GFR Creatinine 86 ML/MIN/1.73 M2 ()?? 07/01/2022 00:51 Calcium 8.4 mg/dL (Low)?? 07/01/2022 00:51 Protein, Total 7.5 Gm/dL ()?? 07/01/2022 00:51 Albumin 3.8 Gm/dL ()?? 07/01/2022 00:51 AG Ratio 1.0 ()?? 07/01/2022 00:51 Alkaline Phosphatase 159 units/L (High)?? 07/01/2022 00:51 AST (SGOT) 59 units/L (High)?? 07/01/2022 00:51 ALT (SGPT) 33 units/L ()?? 07/01/2022 00:51 Bilirubin, Total 1.0 mg/dL ()?? 07/01/2022 00:51 Lactate 1.1 mmol/L ()?? 07/01/2022 00:51 ?? HEME OTHER Hold Blue Top SPECIMEN DISCARDED AFTER 4 HOURS. ()?? 07/01/2022 00:51 ?? MISC. CHEMISTRY Hold Green Top SPECIMEN DISCARDED AFTER 1 WEEK ()?? 07/01/2022 00:51 ?? UA/URINALYSIS Appear/Color, Urine YELLOW ()?? 07/01/2022 01:11 Specific [place], Urine 1.025 ()?? 07/01/2022 01:11 pH, Urine 7.5 ()?? 07/01/2022 01:11 Albumin, Urine TRACE (Abnormal)?? 07/01/2022 01:11 Glucose, Urine NEGATIVE (N)?? 07/01/2022 01:11 Ketones, Urine NEGATIVE (N)?? 07/01/2022 01:11 Bilirubin, Urine NEGATIVE (N)?? 07/01/2022 01:11 Hemoglobin, Urine NEGATIVE (N)?? 07/01/2022 01:11 Nitrite, Urine NEGATIVE (N)?? 07/01/2022 01:11 Leukocyte, Urine NEGATIVE (N)?? 07/01/2022 01:11 Urobilinogen 6 mg/dL (Abnormal)?? 07/01/2022 01:11 WBC's, Urine 1 /HPF ()?? 07/01/2022 01:11 RBC's, Urine 28 /HPF (High)?? 07/01/2022 01:11 Squamous Epith <1 /HPF ()?? 07/01/2022 01:11 Mucus SLIGHT /LPF ()?? 07/01/2022 01:11 Hold Urine Culture Testing available 48 hours from time of collection. ()?? 07/01/2022 01:11 ?? VIROLOGY Influenza A PCR NEGATIVE ()?? 07/01/2022 01:10 Influenza B PCR NEGATIVE ()?? 07/01/2022 01:10 RSV PCR NEGATIVE ()?? 07/01/2022 01:10 COVID-19 PCR Specimen Source NASAL ()?? 07/01/2022 01:10 COVID-19 PCR Result NEGATIVE ()?? 07/01/2022 01:10 ? RESULT: CT Maxilloface W/ Contrast ??CT Maxilloface W/ Contrast ?? IMPRESSION: ?? No significant opacification of the mastoid air cells bilaterally to suggest mastoiditis. ?? Diffuse soft tissue swelling and superficial skin thickening involving the soft tissues overlying the the right face extending to the level of the mandible without a discrete fluid collection. Findings are consistent with cellulitis. ?? There is also diffuse skin thickening and soft tissue swelling of the right pinna. A small amount of mixed density fluid is seen in the right inner ear canal which could represent possible blood products. ?? Moderate prominence of the right parotid gland, likely reactive.?? Hospital Progress note Saleem Galindo MD: PERFORM, SIGN, VERIFY Event Display: Progress Note Hospital Authored Date: Patient: RENEE CORNELIUS Age: 66 years Sex: Male : 1955 Associated Diagnoses: None Author: Saleem Galindo MD Last dose methadone letter Patient received last dose of methadone 45 mg on 07/03/2022 at 8:29 AM Alyssa Ellis RN: PERFORM, SIGN, VERIFY Event Display: Progress Note Hospital Authored Date: Patient: RENEE CORNELIUS Age: 66 years Sex: Male : 1955 Associated Diagnoses: None Author: Alyssa Page RN Findings Problem Related to Alteration in Integumentary : Alteration in Integumentary/new 07/03/2022 11:00 EST Alteration in Integumentary Related to Cellulitis Goals & Outcomes, Integumentary Nutritional intake is adequate for metabolic needs, Pt will maintain adequate fluid & nutritional balance, Pt will maintain intact skin integrity, Wound will progress towards healing Interventions, Integumentary Cleanse all wounds with Normal Saline, Collaborate w/ provider for PT/OT consults, Consult Wound Care as needed for further interventions, Encourage & assist pt to change position frequently, Encourage & assist with range of motion exercises, Encourage family participation in pt's care as they are able, Ensure relief modes are on mattress surface & utilized, I ncrease turning frequency if red or blanched areas appear, Interdisciplinary consults as appropriate, Keep bed as flat as tolerated to reduce shearing, Keep linen clean, dry and wrinkle free, Keep skinclean & dry, Maintain sterile technique with dressing changes, Minimize friction, shear and moisture, Monitor reddened areas for continued or increasing reddness, Record extent of impaired skin integrity, Relieve pressure off bony areas, Reposition pt off reddened areas, Teach Pt/caregiver s/s of infection, Teach Pt/S.O. risks of & measures to prevent skin breakdown, Use barrier cream/ointment if pt's skin is frequently moist, Use fecal incontinence appliance if pt incontinent of stool, Use heel & elbow protectors to relieve friction, Use pH balanced no rinse cleanser if incontinent, Use pressure dispersing devices as appropriate BH Goals/Interventions, Integumentary Yes Integumentary, Problem Start 07/02/2022 17:01 Reviewed plan with, Integumentary Patient Patient Progression, Integumentary Pt progressing according to plan . Nursing Data Vital Signs : VITAL SIGNS SECTION 07/03/2022 7:52 EST Temperature 97.8 DegF Temperature Route Oral Pulse Rate 65 bpm Respiratory Rate 18 br/min Systolic Blood Pressure 126 mm Hg Diastolic Blood Pressure 65 mm Hg Blood pressure sites Arm, right Mean Arterial Pressure 85 mm Hg Pulse Pressure 61 mm Hg Oxygen Saturation 98 % Mode of Delivery (Oxygen) Room air . Narrative/Incidental Guarded throughout shift. A&Ox3, calm and cooperative. Pt c/o generalized pain, methadone administered as ordered w/positive effects. LS CTA. No edema present, +PP. Pt is continent of both urine and stool, urinal at bedside. +BSx4, abd soft/nontender and last BM 07/02. Pt is tolerating PO intake. Skin C/D/I. R FA IV patent, Zosyn running as ordered. Pt now resting comfortably, call vargas within reach, bed alarm on and safety maintained. .La Hidalgo RN: PERFORM, SIGN, VERIFY Event Display: Progress Note Hospital Authored Date: [id number] Patient: RENEE CORNELIUS Age: 66 years Sex: Male : 1955 Associated Diagnoses: None Author: La Hidalgo RN Findings Problem Related to Alteration in Integumentary : Alteration in Integumentary/new 07/02/2022 17:00 EST Alteration in Integumentary Related to Cellulitis Goals & Outcomes, Integumentary Nutritional intake is adequate for metabolic needs, Pt will maintain adequate fluid & nutritional balance, Pt will maintain intact skin integrity, Wound will progress towards healing Interventions, Integumentary Cleanse all wounds with Normal Saline, Collaborate w/ provider for PT/OT consults, Consult Wound Care as needed for further interventions, Encourage & assist pt to change position frequently, Encourage & assist with range of motion exercises, Encourage family participation in pt's care as they are able, Ensure relief modes are on mattress surface & utilized, I ncrease turning frequency if red or blanched areas appear, Interdisciplinary consults as appropriate, Keep bed as flat as tolerated to reduce shearing, Keep linen clean, dry and wrinkle free, Keep skinclean & dry, Maintain sterile technique with dressing changes, Minimize friction, shear and moisture, Monitor reddened areas for continued or increasing reddness, Record extent of impaired skin integrity, Relieve pressure off bony areas, Reposition pt off reddened areas, Teach Pt/caregiver s/s of infection, Teach Pt/S.O. risks of & measures to prevent skin breakdown, Use barrier cream/ointment if pt's skin is frequently moist, Use fecal incontinence appliance if pt incontinent of stool, Use heel & elbow protectors to relieve friction, Use pH balanced no rinse cleanser if incontinent, Use pressure dispersing devices as appropriate BH Goals/Interventions, Integumentary Yes Integumentary, Problem Start 07/02/2022 17:01 Reviewed plan with, Integumentary Patient Patient Progression, Integumentary Plan Initiation . Nursing Data Vital Signs : VITAL SIGNS SECTION 07/02/2022 19:39 EST Temperature 98.7 DegF Temperature Route Oral Pulse Rate 65 bpm Respiratory Rate 18 br/min Systolic Blood Pressure 124 mm Hg Diastolic Blood Pressure 71 mm Hg Blood pressure sites Arm, left Mean Arterial Pressure 89 mm Hg Pulse Pressure 53 mm Hg Oxygen Saturation 99 % Mode of Delivery (Oxygen) Room air . Evaluation Nursing Overnight Notes: A&O x3. Guard at bedside. LSCTA. No sob, no c/o chestpain. No c/o dizziness or headache. External left ear noted with scant amount bleeding. Surrounding skin with dried blood. Pt on IV antibiotics.Afebrile, no chills. VSS.. Note Alyssa Page RN: PERFORM Event Display: Discharge/Transfer Note Hospital Authored Date: [id number] Nursing Discharge Note Entered On: 07/03/2022 16:45 EST Performed On: 07/03/2022 16:45 EST by Alyssa Page RN Nursing Discharge Note 2 Discharge Time : 07/03/2022 16:45 EST Discharge Level of Care at Discharge : Correction Fac/Police/Skilled Nursing Patient Left Unit Via : Wheelchair Patient Accompanied Off Unit with : Responsible adult DC Instructions Provided & Signed by Pt : Yes Patient Understands D/C Instructions : Yes Patient Instructions Discharge Signed : Yes Did Pt have Specialty Bed or Wound Vac : No Alyssa Page RN - 07/03/2022 16:45 Saleem Garza MD: PERFORM Event Display: Discharge/Transfer Note Hospital Authored Date: [id number] Patient: ??RENEE CORNELIUS ? Age:??66 Years?Sex:??Male?:??1955?? Patient Information Discharge Location: [facility] Primary Care Physician: Brandee Grey MD Admit Date/Time: 07/01/22 03:51 Discharge Disposition Discharge Disposition: ?? Discharge Diagnosis Facial cellulitis (L03.211) ?? _ Discharge Medications Amoxicillin-Clavulanate (Augmentin 875 mg-125 mg oral tablet)?1?tab(s)?By Mouth?Every 12hours?for 7?Days DiphenhydrAMINE (Benadryl 25 mg oral tablet)?50?Milligram?2?tab(s)?By Mouth?Daily at Bedtime?as needed?as needed for insomnia Doxycycline (doxycycline hyclate 100 mg oral capsule)?1?capsule?100?Milligram?By Mouth?2 times a day?for 7?Days Fluoxetine (PROzac 20 mg oral capsule)?40?Milligram?2?capsule?By Mouth?Daily Methadone?45?Milligram?Daily Prazosin (prazosin 1 mg oral capsule)?1?Milligram?1?capsule?By Mouth?Daily at bedtime ? Medications Started Augmentin, doxycycline Medications Discontinued None Doses Changed None Allergies Allergies ?(Active and Proposed Allergies Only) traZODone? (Severity: Unknown severity, Onset: Unknown) ? PCP Follow-Up/Heads-Up Patient needs CBC BMP in 5 to 7 days. Hospital Course 66-year-old??male with history of??anxiety,??opioid use disorder, cellulitis??presents??from snf with right ear pain??and right facial cellulitis ?? Right ear pain Right ear cellulitis ?? Patient presented with??right ear pain, right facial pain CAT maxillofacial??showed Diffuse soft tissue swelling and superficial skin thickening involving thesoft tissues overlying the the right face extending to the level of the mandible without a discrete fluid collection. Findings are consistent with cellulitis. There is also diffuse skin thickening and soft tissue swelling of the right pinna. A small amount ofmixed density fluid is seen in the right inner ear canal which could represent possible blood products. ?? Patient was first started on on vancomycin, Zosyn, antibiotics changed to Zosyn WBC improved Blood cultures negative at 24 hours Patients cellulitis significantly improved Patient's??CT??also showed??possible small ??hemorrhage??in the right inner ear, patient is advised to follow-up with ENT as outpatient. Patient is discharged on p.o. Augmentin, doxycycline??for 7 days??to cover both strep and??MRSA ? Opioid use disorder Takes 45 mg methadone daily. ??Previous provider confirmed with??Shania from??[facility], last dose??06/30 at 11 AM Plan Continue methadone 45 mg daily ? Right lower extremity wound Chronic?? does not look infected Continue wound care??as per snf physician ?? Chronic medical conditions Anxiety: Continue??Prozac, prazosin, Benadryl as needed ?? DVT:??Received??Lovenox Code: Full Diet: Regular ?? Discharge to snf today Objective Assessment and Plan ? Measurements?? Height: 178 cm (07/03/22) Weight: 57.6 kg (07/02/22) Dry Weight: 57.6 kg (07/02/22) Body Mass Index:??18.18 kg/m2??Low (07/02/22) ? Vital Signs?? Temperature: 97.8 DegF (07/03/22 07:52:00) Temperature Route: Oral (07/03/22 07:52:00) Pulse Rate: 65 bpm (07/03/22 07:52:00) Respiratory Rate: 18 br/min (07/03/22 08:29:00) Systolic Blood Pressure: 126 mm Hg (07/03/22 07:52:00) Diastolic Blood Pressure: 65 mm Hg (07/03/22 07:52:00) Blood pressure sites: Arm, right (07/03/22 07:52:00) Mean Arterial Pressure: 85 mm Hg (07/03/22 07:52:00) Pulse Pressure: 61 mm Hg (07/03/22 07:52:00) Oxygen Saturation: 98 % (07/03/22 07:52:00) Mode of Delivery (Oxygen): Room air (07/03/22 07:52:00) Early Warning Score: 5 (07/03/22 08:33:39) ? Intake/Output? 07/01 03:51 07/03 07:00 07/02 07:00 07/01 07:00 06/30 07:00 ?? 07/03 12:59 07/03 12:59 07/03 06:59 07/02 06:59 07/01 06:59 Intake ?840 ?480 ?360 ?0 ?0 Output ? 2050 ?800 ? 1250 ?0 ?0 Net Total ?-1210 ? -320 ? -890 ?0 ?0 ? . Physical Exam General:66 year old??male??lies in bed comfortably in no acute distress HEENT: Right ear??swelling,??right-sided face??with mild??erythema,??mild tenderness, swelling whichis improving Card: RRR no murmur, non displaced PMI, no JVD, 2+ radial pulse B/L Resp: CTA B/L, no wheezing, rales Abdomen: soft and non tender, bowel sounds WNL Extremities: no pitted edema B/L lower extremities Skin: Right lower extremity ulcer present, covered in dressing Hem/Lymph: without bruising or lymphadenopathy Psych: appropriate affect Neuro: A&OX3, no focal motor deficits Consultants none Pending Results Blood Culture ordered on 07/01/2022 Blood Culture #2 ordered on 07/01/2022 Hold Lavender Tube (BB) ordered on 07/01/2022 Follow-Up Appointments Added Follow Up ?Time Frame ?Comments Que MCKEON, Brandee Patient Instructions Please continue antibiotics as prescribed Follow your PCP in 7 days check CBC, BMP Please follow-up with ENT as outpatient in 2 weeks Home Health Face to Face ^HomeHealthFTF Results Discharge Labs BLOOD COUNT & DIFF WBC 10.4 k/mm3 ()?? 07/02/2022 04:46 RBC 3.88 m/mm3 (Low)?? 07/02/2022 04:46 Hgb 10.8 Gm/dL (Low)?? 07/02/2022 04:46 Hct 33.2 % (Low)?? 07/02/2022 04:46 MCV 85.6 femtoliters ()?? 07/02/2022 04:46 MCH 27.8 pg ()?? 07/02/2022 04:46 MCHC 32.5 g/dL (Low)?? 07/02/2022 04:46 Platelet Count 77 k/mm3 (Low)?? 07/02/2022 04:46 RDW-SD 50.4 femtoliters (High)?? 07/02/2022 04:46 MPV 10.9 femtoliters ()?? 07/02/2022 04:46 Nucleated RBC (Automated) 0.0 #/100 WBC'S ()?? 07/02/2022 04:46 Abs. NRBC 0.0 k/mm3 ()?? 07/02/2022 04:46 Abs. Neut 12.5 k/mm3 (High)?? 07/01/2022 00:51 Abs. Lymph 1.0 k/mm3 ()?? 07/01/2022 00:51 Abs. [place] 1.4 k/mm3 (High)?? 07/01/2022 00:51 Abs. Eo 0.0 k/mm3 ()?? 07/01/2022 00:51 Abs. Baso 0.0 k/mm3 ()?? 07/01/2022 00:51 Neut % 83.1 % (High)?? 07/01/2022 00:51 Lymph % 6.3 % (Low)?? 07/01/2022 00:51 [place] % 9.4 % ()?? 07/01/2022 00:51 Eos % 0.1 % ()?? 07/01/2022 00:51 Baso % 0.2 % ()?? 07/01/2022 00:51 Imm Gran 0.9 % ()?? 07/01/2022 00:51 Abs. Imm Gran 0.1 k/mm3 ()?? 07/01/2022 00:51 ?? CHEM GENERAL Sodium 137 mmol/L ()?? 07/02/2022 04:46 Potassium 4.2 mmol/L ()?? 07/02/2022 04:46 Chloride 105 mmol/L ()?? 07/02/2022 04:46 Bicarbonate Level 25 mmol/L ()?? 07/02/2022 04:46 Anion Gap 7 ()?? 07/02/2022 04:46 Glucose Level 104 mg/dL (High)?? 07/01/2022 00:51 Glucose, POC 107 mg/dL (High)?? 07/01/2022 01:51 BUN 23 mg/dL ()?? 07/02/2022 04:46 Creatinine-Blood 0.9 mg/dL ()?? 07/02/2022 04:46 Estimated GFR Creatinine 96 ML/MIN/1.73 M2 ()?? 07/02/2022 04:46 Calcium 8.4 mg/dL (Low)?? 07/01/2022 00:51 Protein, Total 7.5 Gm/dL ()?? 07/01/2022 00:51 Albumin 3.8 Gm/dL ()?? 07/01/2022 00:51 AG Ratio 1.0 ()?? 07/01/2022 00:51 Alkaline Phosphatase 159 units/L (High)?? 07/01/2022 00:51 AST (SGOT) 59 units/L (High)?? 07/01/2022 00:51 ALT (SGPT) 33 units/L ()?? 07/01/2022 00:51 Bilirubin, Total 1.0 mg/dL ()?? 07/01/2022 00:51 Lactate 1.1 mmol/L ()?? 07/01/2022 00:51 ? HEME OTHER Hold Blue Top SPECIMEN DISCARDED AFTER 4 HOURS. ()?? 07/01/2022 00:51 ? MISC. CHEMISTRY Hold Green Top SPECIMEN DISCARDED AFTER 1 WEEK ()?? 07/01/2022 00:51 ? UA/URINALYSIS Appear/Color, Urine YELLOW ()?? 07/01/2022 01:11 Specific [place], Urine 1.025 ()?? 07/01/2022 01:11 pH, Urine 7.5 ()?? 07/01/2022 01:11 Albumin, Urine TRACE (Abnormal)?? 07/01/2022 01:11 Glucose, Urine NEGATIVE (N)?? 07/01/2022 01:11 Ketones, Urine NEGATIVE (N)?? 07/01/2022 01:11 Bilirubin, Urine NEGATIVE (N)?? 07/01/2022 01:11 Hemoglobin, Urine NEGATIVE (N)?? 07/01/2022 01:11 Nitrite, Urine NEGATIVE (N)?? 07/01/2022 01:11 Leukocyte, Urine NEGATIVE (N)?? 07/01/2022 01:11 Urobilinogen 6 mg/dL (Abnormal)?? 07/01/2022 01:11 WBC's, Urine 1 /HPF ()?? 07/01/2022 01:11 RBC's, Urine 28 /HPF (High)?? 07/01/2022 01:11 Squamous Epith <1 /HPF ()?? 07/01/2022 01:11 Mucus SLIGHT /LPF ()?? 07/01/2022 01:11 Hold Urine Culture Testing available 48 hours from time of collection. ()?? 07/01/2022 01:11 ?? VIROLOGY Influenza A PCR NEGATIVE ()?? 07/01/2022 01:10 Influenza B PCR NEGATIVE ()?? 07/01/2022 01:10 RSV PCR NEGATIVE ()?? 07/01/2022 01:10 COVID-19 PCR Specimen Source NASAL ()?? 07/01/2022 01:10 COVID-19 PCR Result NEGATIVE ()?? 07/01/2022 01:10 ? Microbiology ?? COVID-19, RSV, and Flu A/B, Rapid PCR?? Completed?? Source: Nasal Body Site: Nose Collected Dt/Tm: 07/01/2022 01:10 Last Updated Dt/Tm: 07/01/2022 02:21 ? 40_ minutes spent on discharge Jostin MARTINEZ, Bucky Pardo: PERFORM Event Display: Patient Education/Instruction Authored Date: [id number] Inpatient Adult Discharge Instructions [address] [address] Name: RENEE CORNELIUS : 1955 Visit: 07/01/2022 03:51:00 Current Date: 07/03/2022 13:36 Account: [id number] Inpatient Adult Discharge Instructions We would like to thank you for allowing us to assist you with your healthcare needs. The following includes patient education materials and information regarding your injury/illness. Our entire staff strives to provide an excellent experience for our patients and their families. PLEASE ENSURE YOU FOLLOW-UP PER THE INSTRUCTIONS BELOW! ?? YOUR OPINION IS IMPORTANT TO US! Please complete the survey you may receive by mail or email. Your feedback will be used to make improvements to the healthcare experiences of our patients and their families. Surveys are administered by [employer] ?? If further treatment with your primary care physician or another doctor is recommended, it is important for you to keep the appointment. Call your primary care physician or return to the Emergency Department immediately if your condition worsens, fails to improve, or new symptoms develop. If you need to find a doctor, you can call [facility] [employer] for a referral at [phone] or toll free at [phone]) or log in to [email or web address].. ?? You can view and manage your care through the patient portal or by using a health care vernon of your choosing. [employer] is a website that allows you to securely view your medical information including your hospital discharge summary, office visit summaries, medications and follow-up visits. You can also request appointments, renew medications, and request access to your medical information using a health care vernon of your choosing, or just ask a question. You can enroll at [email or web address] or register during your next office visit. You have been discharged from [facility], Patient Care Unit: D6A. If you have any questions regarding these instructions after you leave, please call us and we will be happy to assist you. [facility] Your Care Team Attending Physician Saleem Galindo MD Discharging Providers Saleem Galindo MD Reason for Admission right ear pain Your Diagnosis Facial cellulitis Tests Performed Below is a partial list of the tests performed during your hospitalization. You may have had other tests and procedures not included in this list. Please discuss all test results with your provider. BUN CBC CBC w/ Differential Comprehensive Metabolic Panel COVID-19, RSV, and Flu A/B, Rapid PCR Creatinine Electrolytes GLUCOSE POC HOLD BLUE TUBE HOLD GREEN TUBE Lactate Level Urinalysis w/hold for Urine Culture CT Maxilloface W/ Contrast Primary Care Provider Brandee Grey MD Advance Directive Health Care Proxy on File Yes - Health Care Proxy No qualifying data available. Discharge Vitals Temperature: 97.8 DegF Height: 178 cm Pulse Rate: 65 bpm Weight: 57.6 kg Respiratory Rate: 18 br/min Body Mass Index:??18.18 kg/m2??Low Systolic Blood Pressure: 126 mm Hg Body surface area: 1.69 Diastolic Blood Pressure: 65 mm Hg ?? Oxygen Saturation: 98 % ?? Studies Pending All tests and labs ordered during this hospital stay have been completed unless listed below. Pleasediscuss all pending results with your provider listed above in these instructions. ?? Blood Culture Blood Culture #2 Hold Lavender Tube (BB) What to do next Instructions From Your Doctor Please continue antibiotics as prescribed Follow your PCP in 7 days check CBC, BMP Please follow-up with ENT as outpatient in 2 weeks Discharge Orders Diet:??Regular Diet You Need to Schedule the Following Appointments Follow Up with??Brandee Grey MD When?? Where: [address] [place] [id number] Discharge Medications RENEE CORNELIUS :1955 Visit Date:07/01/2022 Medications: Please continue your medications until treatment is completed or stopped by your provider. Medications not listed below should be discontinued. Discuss any questions related to medications with your provider. What How Much When Instructions Next Dose New Amoxicillin-Clavulanate (Augmentin 875 mg-125 mg oraltablet) 1 tab(s) Oral Every 12 hours Duration: 7 Days Printed Prescription start Tomorrow 07/04 at 9AM and 9PM New Doxycycline (doxycycline hyclate 100 mg oral capsule) 1 capsule Oral Twice a day Duration: 7 Days Printed Prescription start Tomorrow 07/04 at 9AM and 9PM Changed Fluoxetine (PROzac 20 mg oral capsule) 2 capsule Oral Daily Tomorrow 07/04 9AM Changed Methadone 45 Milligram Daily Resume home regimen but last given on 07/03 at 0830 Unchanged DiphenhydrAMINE (Benadryl 25 mg oral tablet) 2 tab(s) Oral Daily at Bedtime as needed for as needed for insomnia as needed Unchanged Prazosin (prazosin 1 mg oral capsule) 1 capsule Oral Daily at Bedtime Tonight 07/03 9AM ?? What How Much When Comments Stop Taking Ammonium Lactate 12% (Ammonium Lactate 12% Topical) 1 applicator Topically Twice a day Stop Taking Docusate (Doculase 100 mg oral capsule) 1 capsule Oral Twice a day as needed for for constipation Stop Taking HydrOXYzine (hydrOXYzine pamoate 25 mg oral capsule) 25 Milligram Oral Every 6 hours as needed for Anxiety Test Results Below is a partial list of the most recent Laboratory test results done prior to this discharge. You may have had other tests and procedures not included in this list. Please discuss all test results with your provider. BUN (07/02/2022) ???BUN - 23 mg/dL CBC (07/02/2022) ???WBC - 10.4 k/mm3???RBC - 3.88 m/mm3???Hgb - 10.8 Gm/dL???Hct - 33.2 %???MCV - 85.6 femtoliters???MCH - 27.8 pg???MCHC - 32.5 g/dL???Platelet Count - 77 k/mm3???RDW-SD - 50.4 femtoliters???MPV - 10.9femtoliters???Nucleated RBC (Automated) - 0.0 #/100 WBC'S???Abs. NRBC - 0.0 k/mm3 CBC w/ Differential (07/01/2022) ???WBC - 15.0 k/mm3???RBC - 4.17 m/mm3???Hgb - 11.5 Gm/dL???Hct - 34.9 %???MCV - 83.7 femtoliters???MCH - 27.6 pg???MCHC - 33.0 g/dL???Platelet Count - 85 k/mm3???RDW-SD - 49.3 femtoliters???MPV - 11.3femtoliters???Nucleated RBC (Automated) - 0.0 #/100 WBC'S???Abs. NRBC - 0.0 k/mm3???Abs. Neut - 12.5 k/mm3???Abs. Lymph - 1.0 k/mm3???Abs. [place] - 1.4 k/mm3???Abs. Eo - 0.0 k/mm3???Abs. Baso - 0.0 k/mm3???Neut % - 83.1 %???Lymph % - 6.3 %???[place] % - 9.4 %???Eos % - 0.1 %???Baso % - 0.2 %???Imm Gran - 0.9 %???Abs. Imm Gran - 0.1 k/mm3 Comprehensive Metabolic Panel (07/01/2022) ???Sodium - 136 mmol/L???Potassium - 4.1 mmol/L???Chloride - 102 mmol/L???Bicarbonate Level - 23 mmol/L???Anion Gap - 11???Glucose Level - 104 mg/dL???BUN - 24 mg/dL???Creatinine-Blood - 1.0 mg/dL???Estimated GFR Creatinine - 86 ML/MIN/1.73 M2???Calcium - 8.4 mg/dL???Protein, Total - 7.5 Gm/dL???Albumin - 3.8 Gm/dL???AG Ratio - 1.0???Alkaline Phosphatase - 159 units/L???AST (SGOT) - 59 units/L???ALT (SGPT) - 33 units/L???Bilirubin, Total - 1.0 mg/dL COVID-19, RSV, and Flu A/B, Rapid PCR (07/01/2022) ???Influenza A PCR - NEGATIVE???Influenza B PCR - NEGATIVE???RSV PCR - NEGATIVE???COVID-19 PCR Specimen Source - NASAL???COVID-19 PCR Result - NEGATIVE Creatinine (07/02/2022) ???Creatinine-Blood - 0.9 mg/dL???Estimated GFR Creatinine - 96 ML/MIN/1.73 M2 Electrolytes (07/02/2022) ???Sodium - 137 mmol/L???Potassium - 4.2 mmol/L???Chloride - 105 mmol/L???Bicarbonate Level - 25 mmol/L???Anion Gap - 7 GLUCOSE POC (07/01/2022) ???Glucose, POC - 107 mg/dL HOLD BLUE TUBE (07/01/2022) ???Hold Blue Top - SPECIMEN DISCARDED AFTER 4 HOURS. HOLD GREEN TUBE (07/01/2022) ???Hold Green Top - SPECIMEN DISCARDED AFTER 1 WEEK Lactate Level (07/01/2022) ???Lactate - 1.1 mmol/L Urinalysis w/hold for Urine Culture (07/01/2022) ???Appear/Color, Urine - YELLOW???Specific [place], Urine - 1.025???pH, Urine - 7.5???Albumin, Urine- TRACE???Glucose, Urine - NEGATIVE???Ketones, Urine - NEGATIVE???Bilirubin, Urine - NEGATIVE???Hemoglobin, Urine - NEGATIVE???Nitrite, Urine - NEGATIVE???Leukocyte, Urine - NEGATIVE???Urobilinogen - 6mg/dL? ?WBC's, Urine - 1 /HPF? ?RBC's, Urine - 28 /HPF? ?Squamous Epith - <1 /HPF? ?Mucus - SLIGHT???Hold Urine Culture - Testing available 48 hours from time of collection. Allergies (NKA means No Known Allergies) traZODone Problems Active Problems??(7) ZAY (acute kidney injury)?? COVID-19?? Hyponatremia?? Leukocytosis?? Lower extremity cellulitis?? Sepsis?? Underweight?? Education Materials Below is the list of Educational Leaflet Providered with your Discharge Instructions. Valuables and Belongings I fully understand and agree that [facility] accepts no responsibility for all my personal property including clothing, toilet articles, radios, jewelry, dentures, hearing aids, rings, money, or any other property that is in my possession or is brought to me after admission. I understand certain valuables may be placed in a hospital safe for a short period of time. I understand that the hospital is not liable for loss or damage due to accident, fire, or other natural occurrence while said property is in the safe. I accept full responsibility for any personal property that I keep with me, and will not hold the hospital responsible in case of loss or disappearance. I acknowledge that i have been encouraged to send valuables and belongings home. ?? Review of Valuable and Belonging List: With patient, With witness Date for Pt to Sign Valuables/Belongings: 07/02/22 16:33:00 ?? Other Discharge Information ?? Wound Assessment?? Wound Assessment?? Wound Location I: Leg, right lower Wound Location II: Foot, right Wound Location III: Leg, right ? Pulmonary Rehab Status?? Pulmonary Rehab Discharge Status?? Respiratory Rate: 18 br/min ? Common Emergency Awareness Tips IS IT A STROKE? Act FAST and Check for these signs: FACE Does the face look uneven? ARM Does one arm drift down? SPEECH Does their speech sound strange? TIME Call at any sign of stroke ?? Heart Attack Signs Chest discomfort: Most heart attacks involve discomfort in the center of the chest and lasts more than a few minutes, or goes away and comes back. It can feel like uncomfortable pressure, squeezing, fullness or pain. Discomfort in upper body: Symptoms can include pain or discomfort in one or both arms, back, neck, jaw or stomach. Shortness of breath: With or without discomfort. Other signs: Breaking out in a cold sweat, nausea, or lightheaded. Remember, MINUTES DO MATTER. If you experience any of these heart attack warning signs, call to get immediate medical attention! ?? Smoking can increase your chances of developing chronic health problems and can cause harmful effects to other family members in your house. If you smoke, you are strongly encouraged to quit. Please call [facility] [employer] at [phone] or [phone] ([phone]) or log in to [email or web address] for referrals to smoking cessation programs. ?? The National Suicide Prevention Hotline is available 27/02 if you or someone you know needs to find areason to keep living. By calling 5-991-251-OpenDoors.su (2395) you'll be connected to a skilled, trained counselor at a crisis center in your area. INPATIENT DISCHARGE INSTRUCTIONS SIGNATURE PAGE RENEE CORNELIUS Location:[facility] Registration Date and Time:07/01/2022 03:51 EST Primary Care Physician: Brandee Grey MD, I RENEE CORNELIUS, have received the above patient education materials/instructions and have verbalized understanding. If ambulance or transport services are being used I further acknowledge being given a choice of service. ?? If you need to contact me, please call me at this number: . Patient/Hotel Lobby Concierge Name: Patient/Hotel Lobby Concierge Signature: Relationship to Patient: Witness Name/Signature: Date: Bucky Frankel RN: PERFORM Event Display: Patient Education Leaflets Authored Date: [id number] Cellulitis, Facial ?? [id number] Celulitis facial La celulitis es jurgen infecci??n de las capas profundas de la piel. Jurgen rotura de la piel gianna, por ejemplo, jurgen cortada o un rasp??n, puede permitir la entrada de bacterias debajo de la piel. Tambi??n puede presentarse cuando se infecta un grano (gl??ndula rito??cea) o un fol??culo piloso. Si las bacterias alcanzan las capas profundas de la piel, puede ser un problema gabino. La celulitis en la jason esespecialmente peligrosa si afecta la piel alrededor de los ojos. La celulitis produce enrojecimiento, hinchaz??n, calor y dolor en la piel afectada. Las zonas enrojecidas tienen un borde visible. Puede tener fiebre, escalofr??os y dolor. La celulitis se trata con antibi??ticos de siete a britton d??as. Los s??ntomas suelen desaparecer al cabo de maribel a dos d??as de tratamiento. Aseg??rese de girish todos los antibi??ticos cheryl la totalidad de los d??as indicados hasta que se terminen. Siga tomando los medicamentos, aunque los s??ntomashayan desaparecido. Si no se trata, la celulitis puede extenderse hasta el torrente sangu??manpreet y los ganglios linf??ticos. Entonces, la infecci??n se puede diseminar por todo el cuerpo. [place] provoca jurgen enfermedad grave. Cuidados en el hogar Siga los siguientes consejos: ??? [place] todos los antibi??ticos que le hayan recetado exactamente seg??n las indicaciones hasta terminarlos. No omita ninguna dosis, especialmente cheryl los primeros siete d??as. No deje de tomarlos, aun cuando los s??ntomas desaparezcan. ??? Utilice un pa??o empapadode agua fr??a (compresa fr??a) sobre el luly para disminuir la hinchaz??n y el dolor. Aseg??rese de enjuagar la compresa luego de usarla para evitar que se propague la infecci??n. ??? Puede usar paracetamol o ibuprofeno para aliviar el dolor. Si tiene enfermedad hep??raphael o renal cr??yola o alguna vez shane tenido jurgen ??lcera estomacal o jurgen hemorragia gastrointestinal, no tome estos medicamentos. Brea hable con seymour proveedor de atenci??n m??dica. ?? Visita de seguimiento Asista a los controles con seymour proveedor de atenci??n m??dica seg??n le hayan indicado. Si la infecci??n no desaparece luego de terminar el primer antibi??tomeka, es posible que el proveedor le recete maribel diferente. ?? Cu??ndo llamar a seymour proveedor de atenci??n m??dica Llame a seymour proveedor de atenci??n m??dica de inmediato ante cualquiera de las siguientes situaciones: ??? Fiebre de 100.4?F (38?C) o superior luego de dos d??as de girish antibi??ticos ??? Enrojecimiento que se est?? extendiendo ??? Hinchaz??n o dolor que empeoran ??? Secreci??n de la piel (pus)??? P??rpado cerrado por la hinchaz??n o que supura l??quido (pus) ??? Dolor de kwame o de denise que empeora ??? Somnolencia inusual o confusi??n ??? Convulsiones ??? Alteraciones en la visi??n ?? Last Reviewed Date: 2021 ?? [id number] [employer]. Todos los derechos reservados. Esta informaci??n no pretende sustituir la atenci??n m??dica profesional. S??lo seymour m??dico puede diagnosticar y tratar un problema de melany. ?? CT Maxillofacial region W contrast IV [facility] , CIS S: TRANSCRIBE Clifford MCKEON, Javi: VERIFY Jorge A VERDE, Roselia: SIGN Event Display: Result: Authored Date: [id number] CT Maxilloface W/ Contrast Hx of Present Illness: coming from snf, according to staff presented with bloody drainage out of right ear, fever 102, and auditory hallucinations; Reason: Parotid Swelling Mass; Clinical Question(s):Mastoiditis; IMAGING TECHNIQUE: Multidetector spiral CT without contrast, formatted in 3 planes. Automatic tube modulation and/or iterative dose reconstruction were used optimize scan parameters. CTDIvol Head: 25.80 mGy, DLP Head: 608 mGy*cm. COMPARISON: CT facial bones 07/23/2017 FINDINGS: Periorbital soft tissues: No swelling. Orbital soft tissues: Normal. No hemorrhage or ocular injury. Intracranial soft tissues: No gross abnormality. Frontal bones: No fracture. Orbital blue: No fracture. Nasal bones: No fracture. Frontal processes of maxilla: No fracture. Nasal Septum: No fracture. Anterior nasal spine: Intact. Maxillary bones: No fracture. Alveolus: No fracture or avulsed teeth. Zygomatic arches: No fracture. No overlying soft tissue swelling. Pterygoid plates: Intact bilaterally. Mandible: The portions included on the exam are normal. No fracture or dislocation. Paranasal sinuses: Mild mucosal and polypoid thickening of the right maxillary sinus. Mild mucosal thickening of the left maxillary sinus and ethmoid air cells. Mastoids: Somewhat suboptimal evaluation of the mastoid air cells secondary to no dedicated temporalbone study. Within this limitation, there is no evidence of significant opacification to suggest mastoiditis. Upper cervical spine: Compared to 2017, patient has old appearing fracture deformities involving theleft facets of C2-C4. Soft tissues: Moderate prominence of the right parotid gland, likely reactive. Diffuse soft tissue swelling and superficial skin thickening involving the soft tissues overlying the the right face extending to the level of the mandible without a discrete fluid collection (series 205 image 52). There isalso diffuse skin thickening and soft tissue swelling of the right pinna. A small amount of mixed density fluid is seen in the right inner ear canal which could represent possible blood products (series 203 image 229). IMPRESSION: No significant opacification of the mastoid air cells bilaterally to suggest mastoiditis. Diffuse soft tissue swelling and superficial skin thickening involving the soft tissues overlying the the right face extending to the level of the mandible without a discrete fluid collection. Findingsare consistent with cellulitis. There is also diffuse skin thickening and soft tissue swelling of the right pinna. A small amount ofmixed density fluid is seen in the right inner ear canal which could represent possible blood products. Moderate prominence of the right parotid gland, likely reactive. Dr. Roselia Jules discussed the above findings with ordering provider Dr. Geraldine Garcia via [employer] on 07/01/2022 at 2:52 AM. I have personally reviewed the images and I agree with this report. WSN: [id number] Ordering Physician: Geraldine Garcia Dictated By: Roselia Jules DO Dictated Date/Time: 07/01/22 8:44 am Reviewed By: Javi Horton MD Signed By: Javi Horton MD Signed Date/Time: 07/01/22 8:49 am Transcribed By: ANGELICA Transcribed Date/Time: 07/01/22 3:02 am Patient Care team information Care Team PersonnelName: So Ayala RN Position: S RN Member Role: Primary Care Nurse Name: Josselyn Pruitt RN Position: S RN Member Role: Primary Care Nurse Name: Radha Ayers NP Position: S Associate Professional Member Role: Primary Care Nurse Address: Address: [address] [place] [id number] Name: Nehal Matthews RN Position: S RN Member Role: Primary Care Nurse Name: Rita Aparicio RN Position: S RN Member Role: Primary Care Nurse Name: Ana Armendariz RN Position: S RN Member Role: Primary Care Nurse Name: Mendy Lamb RN Position: [facility] RN Member Role: Primary Care Nurse Name: Daniele Medina RN Position: [facility] RN Member Role: Primary Care Nurse Name: Lisset Cornelius RN Position: [facility] RN Member Role: Primary Care Nurse Name: Elis Chaparro RN Position: [facility] RN Member Role: Primary Care Nurse Name: Brandee Grey MD Position: Reference Physician Member Role: PCP Address: Address: [address] [place] [id number] Name: Dari Oliva RN Position: [facility] RN Member Role: Primary Care Nurse Name: Sonya CARRILLO Attending Position: [facility] ED Medicine MD Name: Sena Rod RN Position: [facility] ED RN W/OE and Tasks Member Role: Patient Care Provider Name: Esha Millan Position: [facility] ED TA [facility] Member Role: Golf Technician Care Team Related PersonsName: REVA DEL TORO Address: home [address] [place] [address] Name: SHONA RICH Address: home [address] [place] [address]
--- OUTSIDE RECORDS SUMMARY | 2022-07-18 10:00 | XMS_ITS | Continuity of Care Document ---
:1955 Author Organization [facility] Address [address] [place] [address]- Care Team Providers Name Role Phone Not on Staff, PCP Primary Care Physician Unavailable Encounter [facility] Date(s): 04/17/22 - 04/17/22 [facility] [address] [place] [address]- Discharge Disposition: A-D/C Group Home, Intermediate, or Shelter Fac Attending Physician: Darryl Webster DO Admitting Physician: Darryl Webster DO Referring Physician: Not on Staff, Referring MD Allergies, Adverse Reactions, Alerts Substance Reaction Severity Status traZODone Active Immunizations Given and Recorded Vaccine Date Status Refusal Reason SARS-CoV-2 (COVID-19) mRNA BNT-162b2 vac 02/24/21 Recorde d Not Given Vaccine Date Status Refusal Reason tetanus/diphtheria/pertussis, acel(Tdap)1 04/17/22 Not Gi aminta Patient Refuses SARS-CoV-2 mRNA (uznamzv-cewt-yodal) vax 03/25/22 Not Giv en Patient Refuses 1Result Comment: pt refuses adimently Medications Ammonium Lactate 12% Topical 1 applicator, Topically, 2 times a day, 0 Refills, Maintenance, Cream Start Date: 06/19/20 Status: OrderedDoculase 100 mg oral capsule 1 capsule = 100 mg, By Mouth, 2 times a day, PRN for constipation, # 20 capsule, 0 Refills, Maintenance, 04/25/21 12:52:00 EDT, Capsule, [facility], Partial fill upon patient request if the prescription is for a schedule II opioid drug.,... Start Date: 04/25/21 Status: OrderedhydrOXYzine pamoate 25 mg oral capsule = 25 mg, By Mouth, Every 6 hours, PRN Anxiety, 0 Refills, Maintenance, 06/19/20 14:51:00 EST, Capsule, Partial fill upon patient request Start Date: 06/19/20 Status: Orderedmethadone 10 mg oral tablet 4 tablet = 40 mg, By Mouth, Daily, 0 Refills, Maintenance, 03/25/22 9:30:00 EDT, Tablet, Partial fill upon patient request if the prescription is for a schedule II opioid drug. Start Date: 03/25/22 Status: OrderedPROzac 10 mg oral capsule 10 mg, 1, capsule, By Mouth, Daily, # 30 capsule, Refills 0, Tot. Refills 0, Maintenance, 03/24/22 11:10:00 EDT, Route to Pharmacy Electronically, [facility], Partial fill upon patient request, 178, cm, 03/24/22 5:24:00 EDT, Height, 79,... Start Date: 03/24/22 Stop Date: 04/23/22 Status: Ordered Problem List Condition Effective Dates Status Health Status Informant Lower extremity cellulitis(Confirmed) Active COVID-19(Confirmed) Active Hyponatremia(Confirmed) Active ZAY (acute kidney injury)(Confirmed) Active Leukocytosis(Confirmed) Active Sepsis(Confirmed) Active Vital Signs Most recent to oldest [Reference Range]: 1 2 Height 165 cm (04/17/22 2:21 PM) Weight 65 kg (04/17/22 2:21 PM) Oxygen Saturation [94-100 %] 100 % 97 % (04/17/22 3:53 PM) (04/17/22 2:17 PM) Pulse Rate [55-90 bpm] 79 bpm 88 bpm (04/17/22 3:53 PM) (04/17/22 2:17 PM) Blood Pressure [90-138/55-84 mm Hg] 107/73 mm Hg 139/ 83 mm Hg (04/17/22 3:53 PM) *H* (04/17/22 2:17 PM) Respiratory Rate [16-30 br/min] 16 br/min 16 br/mi n (04/17/22 3:53 PM) (04/17/22 2:17 PM) Temperature [96.8-100.4 DegF] 97.9 DegF (04/17/22 2:17 PM) Mode of Delivery (Oxygen) Room air Room air (04/17/22 3:53 PM) (04/17/22 2:17 PM) Blood pressure sites Arm, right Arm, right (04/17/22 3:53 PM) (04/17/22 2:17 PM) Temperature Route Oral (04/17/22 2:17 PM) Dry Weight 65 kg (04/17/22 2:21 PM) Care Team PersonnelName: Not on Staff, PCP
--- OUTSIDE RECORDS SUMMARY | 2022-07-18 10:00 | XMS_ITS | Continuity of Care Document ---
:1955 Author Organization [facility] Address [address] [place] [id number]- Care Team Providers Name Role Phone Brandee Grey MD Primary Care Physician [id number] Date(s): 04/20/21 - 04/25/[address] [address]- Encounter Diagnosis Osteomyelitis of lower extremity (Final) - 04/21/21 Substance use disorder (Final) - 04/21/21 Discharge Disposition: A-Transfer A/Home Health Attending Physician: Neal MCKEON, Ranjan Admitting Physician: Gale Elkins MD Referring Physician: Not on Staff, Referring MD Allergies, Adverse Reactions, Alerts Substance Reaction Severity Status traZODone Active Immunizations Given and Recorded Vaccine Date Status Refusal Reason SARS-CoV-2 (COVID-19) mRNA BNT-162b2 vac 02/24/21 Recorde d Medications Ammonium Lactate 12% Topical 1 applicator, Topically, 2 times a day, 0 Refills, Maintenance, Cream Start Date: 06/19/20 Status: OrderedBactrim DS 800 mg-160 mg oral tablet 1 tablet, By Mouth, Every 12 hours, for 9 days, # 18 tablet, 0 Refills, Acute 05/04/21 12:30:00 EDT,04/25/21 12:30:00 EDT, Tablet, [facility], Partial fill upon patient request if the prescription is for a schedule II opioid drug., 175,... Start Date: 04/25/21 Stop Date: 05/04/21 Status: Orderedcephalexin monohydrate 500 mg oral capsule 1 capsule = 500 mg, By Mouth, Every 6 hours, for 9 days, # 36 capsule, 0 Refills, Acute 05/04/21 12:41:00 EDT, 04/25/21 12:41:00 EDT, Capsule, [facility], Partial fill upon patient request if the prescription is for a schedule II opioid... Start Date: 04/25/21 Stop Date: 05/04/21 Status: OrderedDoculase 100 mg oral capsule 1 capsule = 100 mg, By Mouth, 2 times a day, PRN for constipation, # 20 capsule, 0 Refills, Maintenance, 04/25/21 12:52:00 EDT, Capsule, [facility], Partial fill upon patient request if the prescription is for a schedule II opioid drug.,... Start Date: 04/25/21 Status: OrderedhydrOXYzine pamoate 25 mg oral capsule = 25 mg, By Mouth, Every 6 hours, PRN Anxiety, 0 Refills, Maintenance, 06/19/20 14:51:00 EST, Capsule, Partial fill upon patient request Start Date: 06/19/20 Status: Orderedmethadone 10 mg oral tablet 50 mg, Tablet, By Mouth, 04/25/21 9:00:00 EDT Start Date: 04/25/21 Stop Date: 04/25/21 Status: CompletedNicoderm C-Q 7 mg/24 hr transdermal film, extended release 1 patch, Topically, Daily, for 7 days, # 7 patch, 0 Refills, Acute 05/02/21 12:47:00 EDT, 04/25/21 12:47:00 EDT, Patch, [facility], Partial fill upon patient request if the prescription is for a schedule II opioid drug., 175, cm, ... Start Date: 04/25/21 Stop Date: 05/02/21 Status: OrderedPROzac 10 mg oral capsule 10 mg, 1, capsule, By Mouth, Daily, Take 10mg dose while taking linezolid, and can go back to your usual 20mg dose in 2 weeks., # 30 capsule, Refills 0, Tot. Refills 0, Maintenance, 06/19/20 16:17:00 EST, Route to Pharmacy Electronically, [facility]/pharmacy... Start Date: 06/19/20 Stop Date: 07/19/20 Status: OrderedSlow Fe (as elemental iron) 45 mg oral tablet, extended release 1 tablet = 45 mg, By Mouth, Daily, # 30 tablet, 0 Refills, Maintenance, 04/25/21 12:52:00 EDT, ER Tablet, [facility], Partial fill upon patient [...] kidney injury)(Confirmed) Active Leukocytosis(Confirmed) Active Sepsis(Confirmed) Active Results Orders for Microbiology Reports Name Date Blood Culture 04/20/21 Blood Culture #2 04/20/21 Microbiology Reports TEST:Blood Culture, Second Order STATUS:Auth (Verified) BODY SITE: SOURCE:Blood COLLECTED DATE/TIME:04/20/21 10:20 AMBlood Culture, Second Order SPECIMEN DESCRIPTION : BLOOD NONE SPECIAL REQUESTS : NONE CULTURE : NO GROWTH 5 DAYS. REPORT STATUS : FINAL 04/25/2021TEST:Blood Culture STATUS:Auth (Verified) BODY SITE: SOURCE:Blood COLLECTED DATE/TIME:04/20/21 10:00 AMBlood Culture SPECIMEN DESCRIPTION : BLOOD NONE SPECIAL REQUESTS : NONE CULTURE : NO GROWTH 5 DAYS. REPORT STATUS : FINAL 04/25/2021adiology Reports Exam Date Time Procedure Performing Provider Status 04/20/21 11:35 AM Tibia/Fibula 2 Views Right Humberto Pace (Verified) Notes:(Tibia/Fibula 2 Views Right) Reason For Exam: PainRESULT: Tibia/Fibula 2 Views Right Examination: Right tibia and fibula performed on 04/20/2021. History: Hx of Present Illness: Pt with hx of venoustasis ulcers with c o pain and swelling to RLE. Pt states that 4 years ago he scratched his legs and has been dealing with pain and fluid retention to the leg ever since. Pt states blisters keep appearing and his leg is always weeping.; Reason: Pain;Clinical Question(s): Osteomyelitis Findings: Frontal and lateral views of the right tibia and fibula are submitted. No fractures or dislocations are demonstrated. Extensive periosteal thickening involving the mid anddistal third of the tibia and fibula is noted. There are multiple overlying soft tissue ulcers. IMPRESSION: Periosteal thickening involving the tibia and fibula at the site of multiple ulcers. Chronic osteomyelitis cannot be excluded. MR may be considered for further evaluation. WSN: [id number] Ordering Physician: Lloyd Hamilton Dictated By: Daniela Brito MD Dictated Date/Time: 04/20/21 11:48 a Reviewed By: Daniela Brito MD Signed By: Daniela Brito MD Signed Date/Time: 04/20/21 11:48 am Transcribed By: ANGELICA Transcribed Date/Time: 04/20/21 11:47 am Exam Date Time Procedure Performing Provider Status 04/20/21 11:35 AM Foot Min 3 Views Right Kaylah Pace; Jennifer (Verified) Notes:(Foot Min 3 Views Right) Reason For Exam: PainRESULT: Foot Min 3 Views Right Examination: Right foot performed on 04/20/2021. History: Hx of Present Illness: Pt with hx of venoustasis ulcers with c o pain and swelling to RLE. Pt states that 4 years ago he scratched his legs and has been dealing with pain and fluid retention to the leg ever since. Pt states blisters keep appearing and his leg is always weeping.; Reason: Pain;Clinical Question(s): Osteomyelitis Findings: Frontal, oblique, and lateral views of the right foot are submitted. No fractures, dislocations, or erosions are seen. There is a 0.4 cm metallic radiodense foreign bodywithin the soft tissues at the lateral aspect of the second distal phalanx. The soft tissues are otherwise unremarkable. IMPRESSION: There is no radiographic evidence of osteomyelitis. WSN: [id number] Ordering Physician: Lloyd Hamilton Dictated By: Dnaiela Brito MD Dictated Date/Time: 04/20/21 11:47 a Reviewed By: Daniela Brito MD Signed By: Daniela Brito MD Signed Date/Time: 04/20/21 11:47 am Transcribed By: ANGELICA Transcribed Date/Time: 04/20/21 11:46 am Vital Signs Most recent to oldest 1 2 3 [Reference Range]: Height 175 cm 175 cm 175 cm (04/25/21 3:26 AM) (04/24/21 11:24 PM) (04/24/21 8: 10 PM) Weight 79 kg (04/20/21 6:22 PM) Oxygen Saturation [94-100 %] 96 % 96 % 95 % (04/25/21 12:00 PM) (04/25/21 7:00 AM) (04/25/21 3: 26 AM) Pulse Rate [55-90 bpm] 68 bpm 68 bpm 69 bpm (04/25/21 12:00 PM) (04/25/21 7:00 AM) (04/25/21 3: 26 AM) Body Mass Index [18.5-24.99] 25.8 *H* (04/20/21 6:22 PM) Blood Pressure [90-138/55-84 139/75 mm Hg 142/75 mm Hg 150 /72 mm Hg mm Hg] *H* *H* *H* (04/25/21 12:00 PM) (04/25/21 7:00 AM) (04/25/21 3: 26 AM) Respiratory Rate [16-30 18 br/min 18 br/min 18 br/mi n br/min] (04/25/21 12:00 PM) (04/25/21 10:17 AM) (04/25/21 9 :17 AM) Temperature [96.8-100.4 DegF] 98.4 DegF 98.6 DegF 98 .6 DegF (04/25/21 12:00 PM) (04/25/21 7:00 AM) (04/25/21 3: 26 AM) Mode of Delivery (Oxygen) Room air Room air Room a ir (04/25/21 12:00 PM) (04/25/21 7:00 AM) (04/25/21 3: 26 AM) Blood pressure sites Arm, left Arm, left Arm, left (04/25/21 12:00 PM) (04/25/21 7:00 AM) (04/25/21 3: 26 AM) Temperature Route Oral Oral Axillary (04/25/21 12:00 PM) (04/25/21 7:00 AM) (04/25/21 3: 26 AM) Dry Weight 79 kg (04/20/21 6:22 PM)
--- OUTSIDE RECORDS SUMMARY | 2022-07-18 10:00 | XMS_ITS | Continuity of Care Document ---
:1955 Author Organization [facility] Address [address] [place] [address]- Care Team Providers Name Role Phone Not on Staff, PCP Primary Care Physician Unavailable Encounter [facility] Date(s): 03/23/22 - 03/25/22 [facility] [address] [place], [place] [address] Encounter Diagnosis Cellulitis (Final) - 03/23/22 Discharge Disposition: A-D/C Home Attending Physician: Miriam Clemente MD Admitting Physician: Pro Abdalla MD Referring Physician: Not on Staff, Referring MD Allergies, Adverse Reactions, Alerts Substance Reaction Severity Status traZODone Active Immunizations Given and Recorded Vaccine Date Status Refusal Reason SARS-CoV-2 (COVID-19) mRNA BNT-162b2 vac 02/24/21 Recorde d Not Given Vaccine Date Status Refusal Reason SARS-CoV-2 mRNA (hexwyxz-teby-kiyrp) vax 03/25/22 Not Giv en Patient Refuses Medications acetaminophen 500 mg oral tablet 1 tablet = 500 mg, By Mouth, 4 times a day, PRN as needed for fever, for 5 days, # 24 tablet, 0 Refills, Acute 03/29/22 10:02:00 EDT, 03/24/22 10:02:00 EDT, Tablet, [facility], Partial fill upon patient request if the prescription is for... Start Date: 03/24/22 Stop Date: 03/29/22 Status: OrderedAmmonium Lactate 12% Topical 1 applicator, Topically, 2 times a day, 0 Refills, Maintenance, Cream Start Date: 06/19/20 Status: OrderedDoculase 100 mg oral capsule 1 capsule = 100 mg, By Mouth, 2 times a day, PRN for constipation, # 20 capsule, 0 Refills, Maintenance, 04/25/21 12:52:00 EDT, Capsule, [facility], Partial fill upon patient request if the prescription is for a schedule II opioid drug.,... Start Date: 04/25/21 Status: Ordereddoxycycline hyclate 100 mg oral capsule 1 capsule = 100 mg, By Mouth, Every 12 hours, for 7 days, # 14 capsule, 0 Refills, Acute 03/31/22 9:59:00 EDT, 03/24/22 9:59:00 EDT, Capsule, [facility], Partial fill upon patient requestif the prescription is for a schedule II opioid d... Start Date: 03/24/22 Stop Date: 03/31/22 Status: OrderedhydrOXYzine pamoate 25 mg oral capsule = 25 mg, By Mouth, Every 6 hours, PRN Anxiety, 0 Refills, Maintenance, 06/19/20 14:51:00 EST, Capsule, Partial fill upon patient request Start Date: 06/19/20 Status: Orderedmethadone 10 mg oral tablet 40 mg, Tablet, By Mouth, 03/25/22 9:57:00 EDT Start Date: 03/25/22 Stop Date: 03/25/22 Status: Completedmethadone 10 mg oral tablet 4 tablet = [...] 03/24/22 11:10:00 EDT, Route to Pharmacy Electronically, [facility], Partial fill upon patient request, 178, cm, 03/24/22 5:24:00 EDT, Height, 79,... Start Date: 03/24/22 Stop Date: 04/23/22 Status: OrderedtraMADol 50 mg oral tablet 50 mg, Tablet, By Mouth, Every 6 hours, PRN for Pain , Moderate, Routine, 03/23/22 23:15:00 EDT Start Date: 03/23/22 Stop Date: 03/25/22 Status: Discontinued Problem List Condition Effective Dates Status Health Status Informant Lower extremity cellulitis(Confirmed) Active COVID-19(Confirmed) Active Hyponatremia(Confirmed) Active ZAY (acute kidney injury)(Confirmed) Active Leukocytosis(Confirmed) Active Sepsis(Confirmed) Active Results Orders for Microbiology Reports Name Date Blood Culture #2 03/23/22 Microbiology Reports TEST:Blood Culture, Second Order STATUS:Unauthenticated BODY SITE: SOURCE:Blood COLLECTED DATE/TIME:03/23/22 11:13 PMBlood Culture, Second Order SPECIMEN DESCRIPTION : BLOOD NO SITE SPECIAL REQUESTS : CRITICAL VALUE CALLED AND VERIFIED BY READBACK FOR: GRAM POSITIVE COCCI NOTIFIED TO [id number] FROM S64, AT 2310, 03/24/2022. [id number] CULTURE : GRAM POSITIVE COCCI Staphylococcus species (not S. aureus) was identified by multi-plex PCR REPORT STATUS : PRELIMINARY REPORT Radiology Reports Exam Date Time Procedure Performing Provider Status 03/23/22 11:32 AM Ankle Min 3 Views Right Ashleigh Rios; Auth (V erified) Notes:(Ankle Min 3 Views Right) Reason For Exam: with Pain;TraumaRESULT: Ankle Min 3 Views Right Right ankle 3 views dated March 23, 2022. No prior studies are available. Correlation is made with films of the foot and lower leg performed on April 20, 2021. HISTORY: Pain. FINDINGS: This examination shows soft tissue swelling. No fracture or dislocation is identified. Thejoint spaces are well preserved. The ankle mortise is intact on this nonstressed study. A minimal plantar calcaneal bone spur is noted. Calcification is present at the insertion of the Achilles tendon. IMPRESSION: Soft tissue swelling. No evidence of associated fracture or dislocation. Degenerative changes. Examination 24[address]. Thank you for allowing me to participate in the care of this patient. WSN: [id number] Ordering Physician: Stephanie Richards Dictated By: Jerrell Moran MD Dictated Date/Time: 03/23/22 11:43 a Reviewed By: Jerrell Moran MD Signed By: Jerrell Moran MD Signed Date/Time: 03/23/22 11:43 am Transcribed By: ANGELICA Transcribed Date/Time: 03/23/22 11:41 am Exam Date Time Procedure Performing Provider Status 03/23/22 11:32 AM Chest 2 Views Frontal and Lat Ashleigh Rios; A ut (Verified) Notes:(Chest 2 Views Frontal and Lat) Reason For Exam: Chest Pain;Other:RESULT: Chest 2 Views Frontal and Lat Chest 2 Views Frontal and Lat Hx of Present Illness: right ankle wound; Reason: Other:; Chest Pain; Clinical Question(s): Other: COMPARISON: 03/22/2018. FINDINGS: LINES AND TUBES: None. LUNGS AND PLEURA: Clear lungs. Normal pulmonary vascularity. No pleural effusion. No pneumothorax. HEART, MEDIASTINUM AND MARCUS: Heart is normal in size. Normal upper mediastinal and hilar contour. BONES AND SOFT TISSUES: No acute abnormality. IMPRESSION: No acute abnormality. WSN: [id number] Ordering Physician: Angeles Reid Dictated By: Viviana Lowry MD Dictated Date/Time: 03/23/22 11:37 a Reviewed By: Viviana Lowry MD Signed By: Viviana Lowry MD Signed Date/Time: 03/23/22 11:37 am Transcribed By: ANGELICA Transcribed Date/Time: 03/23/22 11:37 am Vital Signs Most recent to oldest 1 2 3 [Reference Range]: Height 178 cm 178 cm 178 cm (03/25/22 5:59 AM) (03/24/22 8:36 PM) (03/24/22 1:4 1 PM) Oxygen Saturation [94-100 %] 97 % 95 % 99 % (03/25/22 5:59 AM) (03/24/22 8:36 PM) (03/24/22 1:4 1 PM) Pulse Rate [55-90 bpm] 68 bpm 83 bpm 71 bpm (03/25/22 5:59 AM) (03/24/22 8:36 PM) (03/24/22 1:4 1 PM) Blood Pressure [90-138/55-84 121/60 mm Hg 109/56 mm Hg 117 /69 mm Hg mm Hg] (03/25/22 5:59 AM) (03/24/22 8:36 PM) (03/24/22 1:4 1 PM) Respiratory Rate [16-30 16 br/min 18 br/min 18 br/mi n br/min] (03/25/22 10:02 AM) (03/25/22 5:59 AM) (03/24/22 9: 28 PM) Temperature [96.8-100.4 DegF] 98.6 DegF 99.1 DegF 98 .6 DegF (03/25/22 5:59 AM) (03/24/22 8:36 PM) (03/24/22 1:4 1 PM) Mode of Delivery (Oxygen) Room air Room air Room a ir (03/25/22 5:59 AM) (03/24/22 8:36 PM) (03/24/22 1:4 1 PM) Blood pressure sites Arm, left Arm, left Arm, left (03/25/22 5:59 AM) (03/24/22 8:36 PM) (03/24/22 1:4 1 PM) Temperature Route Oral Oral Oral (03/25/22 5:59 AM) (03/24/22 8:36 PM) (03/24/22 1:4 1 PM)
--- NOTE | 2022-07-18 10:01 | PC.NURSE ---
patient a/ox4 . chrisrla . heart rate regular at 62 beats per minute . breathing even and unlabored . breathing even and unlabored . lungs clear throughout . patient right leg below the knee / calf warm to touch skin is dark discolored . dressing was removed prior to assessment that had yellow drainage noted , patient reports that dressing had been on for four days . provider at bedside wound noted inside of ankle picture taken by Brian Carranza added to chart .patient also has small area on top of foot located between toes . 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 IV placed in left forearm . Ekg done . patient aware of plan of care .
--- NOTE | 2022-07-18 10:02 | PC.NURSE ---
pulses positive in right foot obtained with Doppler .
--- NOTE | 2022-07-18 10:35 | PC.NURSE ---
Patient to Xray for images . patient aware of plan of care .
--- NOTE | 2022-07-18 10:56 | ED.GENADULT ---
HPI - General Adult General Chief complaint: General Medical Stated complaint: Needs tests for detox Time Seen by Provider: 07/18/22 09:45 Source: patient Mode of arrival: ambulatory History of Present Illness HPI narrative: 66-year-old male with a past medical history of anemia, cellulitis, cirrhosis, depression, hepatitis-C, polysubstance use, IVDA, PVD with chronic venous stasis ulcers, depression, presenting to ED requesting clearance for detox. Patient admits to using heroin and cocaine 2 days ago, reports using about a bundle daily. Reports acute on chronic wounds to right lower extremity with malodorous drainage. Denies fever, chills, numbness/tingling, CP/SOB, abdominal pain, nausea/vomiting. Denies SI/HI Onset (ago): unknown Related Data Home Medications Medication Instructions Recorded Confirmed methadone 10 mg/mL oral 45 mg PO DAILY 04/11/22 04/12/22 concentrate (Methadone Intensol) diphenhydramine HCl 25 mg capsule 2 cap PO BEDTIME 07/18/22 07/18/22 (Benadryl) fluoxetine 40 mg capsule 1 cap PO DAILY 07/18/22 07/18/22 prazosin 1 mg capsule 1 cap PO BEDTIME 07/18/22 07/18/22 Previous Rx's Medication Instructions Recorded walker (Ultra-Light Rollator misc) #1 ea 04/15/22 Allergies Allergy/AdvReac Type Severity Reaction Status Date / Time trazodone [TRAZODONE] Allergy Intermediate RESTLESS Verified 07/18/22 09:34 LEGS Review of Systems Review of Systems: Constitutional: No Fever, No Chills, No Fatigue, No Malaise ENT/Mouth: No Ear Pain, No Nasal Congestion, No sore throat, No Rhinorrhea, No Swallowing Difficulty Eyes: No Eye Pain, No Swelling, No Redness Cardiovascular: No Chest Pain, No SOB, No Orthopnea, No Edema, No Palpitations Respiratory: No Cough, No Sputum, No Dyspnea Gastrointestinal: No Nausea, No Vomiting, No Diarrhea, No Constipation, No Abdominal pain Genitourinary: No Dysuria, No Urinary Frequency, No Hematuria, No Hesitancy Musculoskeletal: No joint pain, No Myalgias, No Joint Swelling Skin: + Skin Lesions, No rash Neuro: No Weakness, No Numbness, No Paresthesias, No Dizziness, No Headache Yes all other systems are reviewed and are negative Constitutional: Constitutional: Reports as per [facility] Past Medical History Attestation statement: The following information was validated with the patient. 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 Opiate dependence Opioid use disorder Polysubstance abuse Tobacco dependence Varicose veins of right lower extremity with inflammation Venous stasis ulcer Surgical History H/O hernia repair Family History Family History Mother CAD (coronary artery disease) ESRD (end stage renal disease) Brother Liver failure Social History Social History Household Members: Other Household Members Other:: Currently residing in a rehab facility Housing: Homeless Housing Other:: Currently residing in a rehab facility Do you presently have visiting nurse or other home services: Yes Unable to assess alcohol history related to: Unknown Alcohol intake: never Patient Tobacco Use Status: Former Tobacco user Tobacco use type: Cigarette Cigarettes Per Day: 2 Years Smoked: 40 e-Cigarette/Vaping Use: Never Used Second Hand Smoke Exposure: Yes Substance Use Type: Crack/Cocaine and Heroin Advance Directives Date on File: 02/11/21 service: No Current occupational status: disabled Physical Exam ED Vital Signs: Vital Signs - 24 hr 07/18/22 09:34 Temperature 97.9 F Pulse Rate 64 Respiratory Rate 18 Blood Pressure 126/52 L Pulse Oximetry 98 Oxygen Delivery Method Room Air BMI result Body Mass Index 25.8 Const General: cooperative, no acute distress, alert and awake Orientation/consciousness: patient oriented x3 Limitations: no limitations HENMT Head: Yes normal to inspection and Yes atraumatic Ears: hearing grossly normal bilaterally General nose exam: Normal external nose present Face and sinus: Yes normal facial exam Eyes General: appearance normal, both eyes and all related structures EOM: EOMs intact bilaterally Neck Neck: Yes normal visual inspection and Yes no meningeal signs Resp Effort & Inspection: normal respiratory effort and no respiratory distress Auscultation: clear to auscultation bilaterally, no crackles, no rales, no rhonchi and no wheezes Cardio Rate: regular rate Heart sounds: S1 normal heart sound present and S2 normal heart sound present GI Inspection: Yes normal to inspection Palpation (GI): Soft to palpation, nontender, no guarding and not rigid Skin Rashes: no rashes Neuro General: patient oriented x3, tone normal and no meningeal signs Gait exam (Neuro): Normal gait present Extrem Other: Please refer to images above. Right lower extremity with acute on chronic venous stasis changes, open wounds with overlying erythema, swelling, and warmth. No fluctuance/induration. Dopplerable pulses Course Course Course Narrative: -1121--no leukocytosis. H&H at patient's baseline. Chronically elevated AST/ALT and alk phos. CRP minimally elevated. BNP acute on chronically elevated -ESR 25. Tox screen positive for fentanyl and cocaine US venous duplex LE RT IMPRESSION: No DVT demonstrated in the right lower extremity. The peroneal veins however are unable to the visualized by the special tax auditor >> plan to admit for further management Medications Administered Generic Name Dose Route Start Last Admin Trade Name Freq PRN Reason Stop Dose Admin Enoxaparin Sodium 40 mg 07/18/22 15:00 07/18/22 16:28 Enoxaparin Sodium 40 Mg/0.4 Ml Syringe SUBCUT 40 mg Q24H DAVID Administration Methadone HCl 40 mg 07/18/22 15:10 07/18/22 16:28 Methadone Hcl 20 Mg/2 Ml Oral.Conc PO 40 mg DAILY DAVID Administration Sodium Chloride 3 ml 07/18/22 16:00 07/18/22 16:29 0.9 % Sodium Chloride Flush 3 Ml Syringe IVFLUSH Not Given QSHIFT DAVID Discontinued Medications Generic Name Dose Route Start Last Admin Trade Name Freq PRN Reason Stop Dose Admin Hydroxyzine HCl 25 mg 07/18/22 13:58 07/18/22 16:27 Hydroxyzine Hcl 50 Mg Tablet PO 07/18/22 13:59 25 mg ONCE ONE Administration Sodium Chloride 1,000 mls @ 999 mls/hr 07/18/22 10:30 07/18/22 12:10 Ns IV 07/18/22 11:30 Infused .Q1H1M DAVID Infusion Piperacillin Sod/Tazobactam 100 mls @ 200 mls/hr 07/18/22 10:23 07/18/22 11:42 Sod 4.5 gm/ Sodium Chloride IV 07/18/22 10:52 Infused ONCE ONE Infusion Vancomycin HCl 2,000 mg in 520 mls @ 260 mls/hr 07/18/22 10:23 07/18/22 13:45 Vancomycin/Ns IV 07/18/22 12:22 Infused ONCE ONE Infusion Medical Decision Making Medical Decision Making [facility] Narrative: 66-year-old male with a past medical history of anemia, cellulitis, cirrhosis, depression, hepatitis-C, polysubstance use, IVDA, PVD with chronic venous stasis ulcers, depression, presenting to ED requesting clearance for detox. On exam vital signs stable, afebrile, NAD, nontoxic appearing, physical exam as above, please refer to images of right lower extremity. Concern for cellulitis with PVD vs PAD. R/o DVT. Compartments soft, lower suspicion for osteomyelitis Plan: Labs, lactic/blood cultures, venous and arterial ultrasound, x-ray, empiric IV antibiotics, +/- admission Differential Diagnosis The differential diagnosis associated with the presentation includes Admission/Observation Consideration of admission/observation: Escalation of care including admission/observation considered Lab Data [facility] Lab Attestation statement: I reviewed the patient's lab results. Result Diagrams: 07/18/22 10:56 07/18/22 10:56 Labs: Lab Results 07/18/22 07/18/22 07/18/22 Range/Units 10:56 10:56 10:56 WBC 5.2 (4.8-10.8) X10*3/uL RBC 3.82 L (4.60-5.80) X10*6/uL Hgb 10.3 L (14.0-18.0) g/dl Hct 32.8 L (42.0-52.0) % MCV 85.9 (80.0-98.0) fL MCH 27.0 (27.0-33.0) pg MCHC 31.4 (31.0-36.0) g/dl RDW 16.3 H (11.0-16.0) % Plt Count 120 L (160-400) X10*3/uL MPV 10.9 (9.4-12.4) fL Immature Gran % (Auto) 0.4 (0.0-0.4) % Neut % (Auto) 56.3 (45-73) % Lymph % (Auto) 19.4 L (20-40) % [place] % (Auto) 12.7 H (2-11) % Eos % (Auto) 10.6 H (0-4) % Baso % (Auto) 0.6 (0-2) % Lymph # (Auto) 1.0 L (1.2-4.9) X10*3/uL [place] # (Auto) 0.7 (0.1-1.2) X10*3/uL Eos # (Auto) 0.6 H (0.0-0.4) X10*3/uL Baso # (Auto) 0.0 (0.0-0.2) X10*3/uL Abs Immat Gran (auto) 0.02 (0.00-0.03) X10*3/uL Absolute Neuts (auto) 2.9 (2.0-8.3) x10*3/uL Absolute Nucleated RBC 0.000 (0.0-0.012) X10*3/uL Nucleated RBC % (auto) 0.0 (0.0-0.2) /100WBC ESR 25 H (0-15) MM/HR PT (10.0-13.1) SEC INR (0.9-1.1) Sodium 139 (135-145) mmol/L Potassium 4.0 (3.3-5.1) mmol/L Chloride 110 H (96-108) mmol/L Carbon Dioxide 24 (22-29) mmol/L Anion Gap 9 L (12-20) BUN 21 H (9-16) mg/dL Creatinine 0.78 (0.5-1.4) mg/dL Estim Creat Clear Calc 97.4 Estimated GFR > 60 Random Glucose 92 (60-115) mg/dL Lactic Acid (0.5-2.0) mmol/L Calcium 8.7 (8.4-10.2) mg/dL Magnesium 1.7 (1.6-2.6) mg/dL Total Bilirubin 0.7 (0.0-1.0) mg/dL Direct Bilirubin 0.3 (0.0-0.5) mg/dL AST 72 H (5-37) U/L ALT 42 H (0-40) U/L Alkaline Phosphatase 136 H (39-117) U/L C-Reactive Protein 0.66 H (< or = 0.50) mg/dL B-Natriuretic Peptide (<100) pg/mL Total Protein 6.7 (6.5-8.0) g/dL Albumin 2.9 L (3.5-5.0) g/dL Urine Opiates Screen (Not Detect) Urine Fentanyl Screen (Not Detect) Ur Barbiturates Screen (Not Detect) Ur Phencyclidine Scrn (Not Detect) Ur Amphetamines Screen (Not Detect) U Benzodiazepines Scrn (Not Detect) Urine Cocaine Screen (Not Detect) U Marijuana (THC) Screen (Not Detect) COVID-19 (JACQUE) (Negative) COVID-19 Clin Com Influenza Type A (DALI) (Negative) Influenza Type B (DALI) (Negative) Influenza A & B Note 07/18/22 07/18/22 07/18/22 Range/Units 10:56 10:56 10:56 WBC (4.8-10.8) X10*3/uL RBC (4.60-5.80) X10*6/uL Hgb (14.0-18.0) g/dl Hct (42.0-52.0) % MCV (80.0-98.0) fL MCH (27.0-33.0) pg MCHC (31.0-36.0) g/dl RDW (11.0-16.0) % Plt Count (160-400) X10*3/uL MPV (9.4-12.4) fL Immature Gran % (Auto) (0.0-0.4) % Neut % (Auto) (45-73) % Lymph % (Auto) (20-40) % [place] % (Auto) (2-11) % Eos % (Auto) (0-4) % Baso % (Auto) (0-2) % Lymph # (Auto) (1.2-4.9) X10*3/uL [place] # (Auto) (0.1-1.2) X10*3/uL Eos # (Auto) (0.0-0.4) X10*3/uL Baso # (Auto) (0.0-0.2) X10*3/uL Abs Immat Gran (auto) (0.00-0.03) X10*3/uL Absolute Neuts (auto) (2.0-8.3) x10*3/uL Absolute Nucleated RBC (0.0-0.012) X10*3/uL Nucleated RBC % (auto) (0.0-0.2) /100WBC ESR (0-15) MM/HR PT 14.9 H (10.0-13.1) SEC INR 1.3 H (0.9-1.1) Sodium (135-145) mmol/L Potassium (3.3-5.1) mmol/L Chloride (96-108) mmol/L Carbon Dioxide (22-29) mmol/L Anion Gap (12-20) BUN (9-16) mg/dL Creatinine (0.5-1.4) mg/dL Estim Creat Clear Calc Estimated GFR Random Glucose (60-115) mg/dL Lactic Acid 0.9 (0.5-2.0) mmol/L Calcium (8.4-10.2) mg/dL Magnesium (1.6-2.6) mg/dL Total Bilirubin (0.0-1.0) mg/dL Direct Bilirubin (0.0-0.5) mg/dL AST (5-37) U/L ALT (0-40) U/L Alkaline Phosphatase (39-117) U/L C-Reactive Protein (< or = 0.50) mg/dL B-Natriuretic Peptide 230 H (<100) pg/mL Total Protein (6.5-8.0) g/dL Albumin (3.5-5.0) g/dL Urine Opiates Screen (Not Detect) Urine Fentanyl Screen (Not Detect) Ur Barbiturates Screen (Not Detect) Ur Phencyclidine Scrn (Not Detect) Ur Amphetamines Screen (Not Detect) U Benzodiazepines Scrn (Not Detect) Urine Cocaine Screen (Not Detect) U Marijuana (THC) Screen (Not Detect) COVID-19 (JACQUE) (Negative) COVID-19 Clin Com Influenza Type A (DALI) (Negative) Influenza Type B (DALI) (Negative) Influenza A & B Note 07/18/22 07/18/22 07/18/22 Range/Units 10:56 10:56 11:58 WBC (4.8-10.8) X10*3/uL RBC (4.60-5.80) X10*6/uL Hgb (14.0-18.0) g/dl Hct (42.0-52.0) % MCV (80.0-98.0) fL MCH (27.0-33.0) pg MCHC (31.0-36.0) g/dl RDW (11.0-16.0) % Plt Count (160-400) X10*3/uL MPV (9.4-12.4) fL Immature Gran % (Auto) (0.0-0.4) % Neut % (Auto) (45-73) % Lymph % (Auto) (20-40) % [place] % (Auto) (2-11) % Eos % (Auto) (0-4) % Baso % (Auto) (0-2) % Lymph # (Auto) (1.2-4.9) X10*3/uL [place] # (Auto) (0.1-1.2) X10*3/uL Eos # (Auto) (0.0-0.4) X10*3/uL Baso # (Auto) (0.0-0.2) X10*3/uL Abs Immat Gran (auto) (0.00-0.03) X10*3/uL Absolute Neuts (auto) (2.0-8.3) x10*3/uL Absolute Nucleated RBC (0.0-0.012) X10*3/uL Nucleated RBC % (auto) (0.0-0.2) /100WBC ESR (0-15) MM/HR PT (10.0-13.1) SEC INR (0.9-1.1) Sodium (135-145) mmol/L Potassium (3.3-5.1) mmol/L Chloride (96-108) mmol/L Carbon Dioxide (22-29) mmol/L Anion Gap (12-20) BUN (9-16) mg/dL Creatinine (0.5-1.4) mg/dL Estim Creat Clear Calc Estimated GFR Random Glucose (60-115) mg/dL Lactic Acid (0.5-2.0) mmol/L Calcium (8.4-10.2) mg/dL Magnesium (1.6-2.6) mg/dL Total Bilirubin (0.0-1.0) mg/dL Direct Bilirubin (0.0-0.5) mg/dL AST (5-37) U/L ALT (0-40) U/L Alkaline Phosphatase (39-117) U/L C-Reactive Protein (< or = 0.50) mg/dL B-Natriuretic Peptide (<100) pg/mL Total Protein (6.5-8.0) g/dL Albumin (3.5-5.0) g/dL Urine Opiates Screen Not Detected (Not Detect) Urine Fentanyl Screen POSITIVE H (Not Detect) Ur Barbiturates Screen Not Detected (Not Detect) Ur Phencyclidine Scrn Not Detected (Not Detect) Ur Amphetamines Screen Not Detected (Not Detect) U Benzodiazepines Scrn Not Detected (Not Detect) Urine Cocaine Screen POSITIVE H (Not Detect) U Marijuana (THC) Screen Not Detected (Not Detect) COVID-19 (JACQUE) Negative (Negative) COVID-19 Clin Com See Note Influenza Type A (DALI) Negative (Negative) Influenza Type B (DALI) Negative (Negative) Influenza A & B Note See Note Independent Interpretation I performed an independent interpretation of an: EKG Interpretation: EKG normal sinus rhythm at a rate of 62. VA interval 164. QTC 442. No STEMI Radiology Impression Discussion of test interpretation with radiology: I have reviewed the radiologist's reading. External Record Review External record reviewed: Inpatient record, Office record, Prior outpatient labs and Prior outpatient radiology Social Determinants Patient?s care significantly limited by Social Determinants of Health including: Alcoholism and drug addiction in family and Other Social Determinant of Health Discharge Plan Discharge Clinical Impression: Cellulitis, Substance abuse Patient Disposition: Admitted As Inpatient Interventions: Admission Worksheet (ED) Last Done: 07/18/22 17:38 Discharge Date/Time: 07/18/22 18:15
[2022-07-18] MEDS: 0.9 % Sodium Chloride 1,000 ML 999 ML IV (11:06)
[2022-07-18] MEDS: Piperacillin Sodium/Tazobactam 4.5 GM in 0.9 % Sodium Chloride 100 ML IV (11:06)
[2022-07-18 11:07] LABS: MANUAL DIFF FLAG NO
[2022-07-18 11:10] LABS: Basophils Percent Auto 0.6 % (0-2); Eosinophils Absolute Auto 0.6 X10*3/uL (0.0-0.4); Eosinophils Percent Auto 10.6 % (0-4); Hematocrit 32.8 % (42.0-52.0); Hemoglobin 10.3 g/dl (14.0-18.0); Imm Gran Abs Auto 0.02 X10*3/uL (0.00-0.03); Imm Gran Pct Auto 0.4 % (0.0-0.4); Lymphocytes Percent Auto 19.4 % (20-40); Mean Corpuscular HGB Conc 31.4 g/dl (31.0-36.0); Mean Corpuscular Volume 85.9 fL (80.0-98.0); Mean Platelet Volume 10.9 fL (9.4-12.4); Monocytes Absolute Auto 0.7 X10*3/uL (0.1-1.2); Monocytes Percent Auto 12.7 % (2-11); Neutrophils Absolute Auto 2.9 x10*3/uL (2.0-8.3); Neutrophils Percent Auto 56.3 % (45-73); Platelet Count 120 X10*3/uL (160-400); Red Blood Count 3.82 X10*6/uL (4.60-5.80); Red Cell Distribution Width 16.3 % (11.0-16.0); White Blood Count 5.2 X10*3/uL (4.8-10.8)
[2022-07-18 11:17] LABS: INTERNATIONAL NORM RATIO 1.3 (0.9-1.1); Prothrombin Time 14.9 SEC (10.0-13.1)
[2022-07-18 11:18] LABS: Lactic Acid 0.9 mmol/L (0.5-2.0)
[2022-07-18 11:23] LABS: COVID-19 Test Negative (Negative); IDNOW Serial# 16C4AD1C; IDNOW Serial# BCCEAD1C; Influenza A Negative (Negative); Influenza B2 Negative (Negative)
[2022-07-18 11:26] LABS: Alanine Aminotransferase 42 U/L (0-40); Albumin Level 2.9 g/dL (3.5-5.0); Alkaline Phosphatase 136 U/L (39-117); Anion Gap 9 (12-20); Aspartate Amino Transferase 72 U/L (5-37); Bilirubin Direct 0.3 mg/dL (0.0-0.5); Bilirubin Total 0.7 mg/dL (0.0-1.0); Blood Urea Nitrogen 21 mg/dL (9-16); C Reactive Protein 0.66 mg/dL (< or = 0.50); Calcium 8.7 mg/dL (8.4-10.2); Carbon Dioxide 24 mmol/L (22-29); Chloride 110 mmol/L (96-108); Creatinine Clr Calc Pharmacy 97.4; Estimated Glomerular Filt Rate > 60; Glucose Random 92 mg/dL (60-115); Magnesium 1.7 mg/dL (1.6-2.6); Sodium 139 mmol/L (135-145); Total Protein 6.7 g/dL (6.5-8.0)
[2022-07-18 11:28] LABS: B Type Natriuretic Peptide 230 pg/mL (<100)
[2022-07-18 11:51] LABS: Erythrocyte Sedimentation Rate 25 MM/HR (0-15)
[2022-07-18 12:15] LABS: Amphetamine Screen Urine Not Detected (Not Detect); Barbiturates, Urine Not Detected (Not Detect); Benzodiazepines Screen Urine Not Detected (Not Detect); Cannabinoid Screen Urine Not Detected (Not Detect); Cocaine Screen Urine POSITIVE (Not Detect); Fentanyl, urine POSITIVE (Not Detect); Opiate Screen Urine Not Detected (Not Detect); Phencyclidine Screen Urine Not Detected (Not Detect)
--- NOTE | 2022-07-18 14:36 | P.HPHOSP_ITS ---
History of Present Illness Date of Service: 07/18/22 Chief Complaint: RLE infection 66 year old male with history of polysubstance abuse (heroin and cocaine) including IVDA, opiate depedence on methadone, hx hep c with compensated cirrhosis, PVD with chronic venous stasis ulcerations of BLE, depression, and former smoker presented to the ED for evaluation for evaluation of recurrent RLE infection worsening over the last 4 days with increased swelling, purulent/malorodous drainage. Denies fevers but states has had chills. He is also an IV drug abuser and had previously been taking methadone but states he wa s briefly incarcerated so he has been unable to obtain this prescription over the last 3 days. Last IV heroin and cocaine use was 2 days ago into the right upper extremity. He desires detox. In the ED, vital signs have been stable, patient is afebrile. No leukocytosis. Stable normocytic anemia with H/H 10.3/32.8%, consistent with baseline. Platelets 120. Renal function and electrolyte levels normal. Elevated LFTs, consistent with baseline. CRP 0.66, ESR 25. BNP slightly elevated from baseline at 230. No known history of heart failure. Denies any orthopnea, PND, dyspnea on exertion, lightheadedness, palpitations, chest pain. He denies any pain at this time. U tox positive for fentanyl and cocaine. Venous duplex negative for DVT. Tibia/fibula x-ray showing diffuse segments of periosteal thickening involving the tibia and fibula likely secondary to edema, by malleolar soft tissue swelling, no bony erosive changes, bony cortex normal, unchanged from prior imaging. He was given empiric dose of vancomycin with blood cultures pending. Patient to be admitted for cellulitis of the right lower extremity an IV drug abuser. Review of Systems Review of Systems: General: No fevers, malaise, unintentional weight loss Cardiovascular: No chest pain, palpitations, or leg edema Respiratory: No shortness of breath, wheezing, cough GI: No abdominal pain, nausea, vomiting, diarrhea, constipation, melena, hematochezia : No dysuria, hematuria, increased urinary frequency, decreased urinary output MSK: No myalgia, back pain Neuro: No headaches, weakness, paresthesias Skin: +erythema, wamrth, purulent drainage wounds 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 Opiate dependence Opioid use disorder Polysubstance abuse Tobacco dependence Varicose veins of right lower extremity with inflammation Venous stasis ulcer Family History Mother CAD (coronary artery disease) ESRD (end stage renal disease) Brother Liver failure Surgical History H/O hernia repair Social History Household Members: Other Household Members Other:: Currently residing in a rehab facility Housing: Homeless Housing Other:: Currently residing in a rehab facility Do you presently have visiting nurse or other home services: No Unable to assess alcohol history related to: Unknown Alcohol intake: never Patient Tobacco Use Status: Former Tobacco user Tobacco use type: Cigarette Cigarettes Per Day: 2 Years Smoked: 40 Smoked in Last 30 Days: No e-Cigarette/Vaping Use: Never Used Second Hand Smoke Exposure: Yes Substance Use Type: Crack/Cocaine and Heroin Advance Directives: Yes Advance Directives on File: Yes Advance Directives Date on File: 02/11/21 service: No Current occupational status: disabled Meds Allergies Allergy/AdvReac Type Severity Reaction Status Date / Time trazodone [TRAZODONE] Allergy Intermediate RESTLESS Verified 07/18/22 09:34 LEGS Active Medications: Current Medications Acetaminophen (Acetaminophen 325 Mg Tablet) 650 mg PO Q6H PRN PRN Reason: Pain, Mild, fever Docusate Sodium (Docusate Sodium 100 Mg Capsule) 100 mg PO BID PRN PRN Reason: constipation Enoxaparin Sodium (Enoxaparin Sodium 40 Mg/0.4 Ml Syringe) 40 mg SUBCUT Q24H DAVID Ondansetron HCl (Ondansetron Hcl 4 Mg/2 Ml Vial) 4 mg IVPUSH Q8H PRN PRN Reason: Nausea and Vomiting Pharmacy Consult (Consult Rx Vancomycin Dosing) 1 each MISCELLANE DAILY PRN PRN Reason: Consult order Sodium Chloride (0.9 % Sodium Chloride Flush 3 Ml Syringe) 3 ml IVFLUSH QSHIFT [facility] Home Medications Medication Instructions Recorded Confirmed Last Taken Type fluoxetine 10 mg tablet 10 mg PO DAILY 04/11/22 04/11/22 Unknown History methadone 10 mg/mL oral 45 mg PO DAILY 04/11/22 04/12/22 04/10/22 History concentrate (Methadone Intensol) Physical Exam Vital Signs and Narrative: Vital Signs: Last Vital Signs Temp 97.9 F 07/18/22 09:34 Pulse 64 07/18/22 09:34 Resp 18 07/18/22 09:34 BP 126/52 L 07/18/22 09:34 Pulse Ox 98 07/18/22 09:34 O2 Del Method 07/18/22 09:34 BMI result Body Mass Index 25.8 Constitutional - Awake and Alert, No apparent distress Eyes - PERRLA, EOMI Cardiovascular - S1S2, RRR, No edema, III/ systolic murmur aortic and pulmonic area, IV/ holosystolic murmur tricuspid area Respiratory - Normal lung expansion, Normal respiratory effort, No respiratory distress, CTA bilaterally Gastrointestinal - NT / ND; +BS; No rebound or guarding - No CVA tenderness Extremities - no calf tenderness bilaterally, swelling RLE without edema with erythema and wamrth. Chronic venous stasis changes BLE R>L. Shallow 3.5cm x 1cm curvilinear shallow ulceration of the right medial malleolus. Multiple shallow subcentimeter ulcerations of the right foot limited to breakdown of skin. No purulent drainage noted on the skin but is observed on dressing. See photo Skin - Warm/Dry Neurological - Alert & oriented x3, CN II-XII in tact, 5/5 strength BUE and BLE Psychological - Appropriate affect Results Labs CBC and Chem 7: 07/18/22 10:56 07/18/22 10:56 Labs: Laboratory Results - last 24 hr 07/18/22 07/18/22 07/18/22 10:56 10:56 10:56 MCV 85.9 MCH 27.0 MCHC 31.4 RDW 16.3 H Plt Count 120 L MPV 10.9 Immature Gran % (Auto) 0.4 Neut % (Auto) 56.3 Lymph % (Auto) 19.4 L [place] % (Auto) 12.7 H Eos % (Auto) 10.6 H Baso % (Auto) 0.6 Lymph # (Auto) 1.0 L [place] # (Auto) 0.7 Eos # (Auto) 0.6 H Baso # (Auto) 0.0 Abs Immat Gran (auto) 0.02 Absolute Neuts (auto) 2.9 Absolute Nucleated RBC 0.000 Nucleated RBC % (auto) 0.0 ESR 25 H PT INR Anion Gap 9 L Estim Creat Clear Calc 97.4 Estimated GFR > 60 Random Glucose 92 Lactic Acid Calcium 8.7 Magnesium 1.7 Total Bilirubin 0.7 Direct Bilirubin 0.3 AST 72 H ALT 42 H Alkaline Phosphatase 136 H C-Reactive Protein 0.66 H B-Natriuretic Peptide Total Protein 6.7 Albumin 2.9 L Urine Opiates Screen Urine Fentanyl Screen Ur Barbiturates Screen Ur Phencyclidine Scrn Ur Amphetamines Screen U Benzodiazepines Scrn Urine Cocaine Screen U Marijuana (THC) Screen COVID-19 (JACQUE) COVID-19 Clin Com Influenza Type A (DALI) Influenza Type B (DALI) Influenza A & B Note 07/18/22 07/18/22 07/18/22 10:56 10:56 10:56 MCV MCH MCHC RDW Plt Count MPV Immature Gran % (Auto) Neut % (Auto) Lymph % (Auto) [place] % (Auto) Eos % (Auto) Baso % (Auto) Lymph # (Auto) [place] # (Auto) Eos # (Auto) Baso # (Auto) Abs Immat Gran (auto) Absolute Neuts (auto) Absolute Nucleated RBC Nucleated RBC % (auto) ESR PT 14.9 H INR 1.3 H Anion Gap Estim Creat Clear Calc Estimated GFR Random Glucose Lactic Acid 0.9 Calcium Magnesium Total Bilirubin Direct Bilirubin AST ALT Alkaline Phosphatase C-Reactive Protein B-Natriuretic Peptide 230 H Total Protein Albumin Urine Opiates Screen Urine Fentanyl Screen Ur Barbiturates Screen Ur Phencyclidine Scrn Ur Amphetamines Screen U Benzodiazepines Scrn Urine Cocaine Screen U Marijuana (THC) Screen COVID-19 (JACQUE) COVID-19 Clin Com Influenza Type A (DALI) Influenza Type B (DALI) Influenza A & B Note 07/18/22 07/18/22 07/18/22 10:56 10:56 11:58 MCV MCH MCHC RDW Plt Count MPV Immature Gran % (Auto) Neut % (Auto) Lymph % (Auto) [place] % (Auto) Eos % (Auto) Baso % (Auto) Lymph # (Auto) [place] # (Auto) Eos # (Auto) Baso # (Auto) Abs Immat Gran (auto) Absolute Neuts (auto) Absolute Nucleated RBC Nucleated RBC % (auto) ESR PT INR Anion Gap Estim Creat Clear Calc Estimated GFR Random Glucose Lactic Acid Calcium Magnesium Total Bilirubin Direct Bilirubin AST ALT Alkaline Phosphatase C-Reactive Protein B-Natriuretic Peptide Total Protein Albumin Urine Opiates Screen Not Detected Urine Fentanyl Screen POSITIVE H Ur Barbiturates Screen Not Detected Ur Phencyclidine Scrn Not Detected Ur Amphetamines Screen Not Detected U Benzodiazepines Scrn Not Detected Urine Cocaine Screen POSITIVE H U Marijuana (THC) Screen Not Detected COVID-19 (JACQUE) Negative COVID-19 Clin Com See Note Influenza Type A (DALI) Negative Influenza Type B (DALI) Negative Influenza A & B Note See Note Imaging Radiologist's Impressions: Impressions Venous Duplex 07/18/22 11:24 IMPRESSION: No DVT demonstrated in the right lower extremity. The peroneal veins however are unable to the visualized by the post anesthesia nurse Assessment and Plan (1) Cellulitis: Status: Acute (2) Substance abuse: Status: Acute Plan 66 year old male with history of polysubstance abuse (heroin and cocaine) including IVDA, opiate depedence on methadone, hx hep c with compensated cirrhosis, PVD with chronic venous stasis ulcerations of RLE, depression, and former smoker admitted due to cellulitis RLE having failed oral abx treatment with doxycycline #Acute cellulitis RLE -Recurrent cellulitis with chronic venous stasis RLE -No sepsis. Blood cultures pending -Xray tib/fib negative for osteomyelitis. Venous duplex negative for DVT -Received IV ceftriaxone and vanco in ED. Continue vanco IV at risk for MRSA d/t IVDA #Chronic venous stasis ulcer with cellulitis -Recommend outpt follow up with Dr. [place] in vascular -Tx as above #Opiate dependence -UTox positive for fentanyl and cocaine -Previously on methadone 45mg daily, last taken 3 days ago -Wishes to be discharged to [facility] -Addiction Medicine consulted #Cirrhosis, compensated with history of hepatitis C- stable -LFTs at baseline #Depression- stable -Continue fluoxetine #Elevated BNP -Slightly elevated from baseline at 230 (baseline 183) -Clinically euvolemic and asymptomatic. No acute HF -Recommend outpt echocardiogram #Cardiac murmur -Per patient not new -Asymptomatic -Outpt follow up with echo DVT prophylaxis- lovenox Full code Patient requires inpatient stay of at least 2 midnights for treatment of RLE ce llulitis requires IV antibiotics and is at risk for serious infection including MRSA Time Spent With Patient Time: Total time managing care of this patient today ____ minutes. Quality Stroke Does the patient have a stroke diagnosis?: No VTE Prior VTE?: No VTE Risk Level:: Medical - moderate - high VTE Device Contraindication: Treatment Not Indicated VTE Drug Contraindication: N/A - Med Ordered
--- NOTE | 2022-07-18 15:20 | PHA.MEDREC ---
Pharmacy Consult ? Medication Reconciliation Pharmacy has completed the medication reconciliation. Patient unsure of medications reports sister gets medications. Tried to contact sister but phone number in profile does not work. Claim history used to complete med rec. Rosalinda Fitzgerald, LeonardoD
--- NOTE | 2022-07-18 15:23 | PHA.PROG ---
Admission Date/Time: July 18, 2022 14:27 Indication: skin infection Weight in k.647 kg Adjusted body weight in K.45 kg Melvin body weight in K.647 kg Obesity Dosing Indication % IBW: 115% Serum Creatinine - Last 168 Hours 07/18/22 10:56 Creatinine 0.78 Estimated CrCl and GFR - Last 168 Hours 07/18/22 10:56 Estim Creat Clear Calc 97.4 Estimated GFR > 60 Vancomycin Loading Dose: 2000 mg Current Vancomycin Dosing Regimen: 750 mg Q12H Date and Time for next Vancomycin Level to be drawn: 07/19 @ 2100 Pharmacist Comments on Vancomycin Plan: Patient received loading dose 2000 mg in the ER 07/18 @ 1144. Patient recently on vancomycin in , and was therapeutic on 750 mg Q12H. Will start patient on vancomycin 750 mg Q12H on 07/18 @ 2300. expected AUC 437 with a trough of 14.4. Trough to be drawn prior to 4th dose. Pharmacy will monitor renal function daily. Rosalinda Fitzgerald, Remy Vancomycin dosing will take advantage of [employer] as a clinical decision support tool that uses Bayesian modeling to calculate individual patient's pharmacokinetic parameters and forecast the patient's drug concentration time course with the target goal AUC 24 range of 400 - 600 mg/L/hr.
[2022-07-18] MEDS: hydrOXYzine HCL 50 MG TABLET 25 MG PO (16:27)
[2022-07-18] MEDS: Enoxaparin Sodium 40 MG/0.4 ML SYRINGE SUBCUT (16:28)
[2022-07-18] MEDS: methADONE HCl 20 MG/2 ML ORAL.CONC 40 MG PO (16:28)
--- NOTE | 2022-07-18 16:52 | HO.ADDICTCON ---
History of Present Illness Date of Service: 07/18/2022 Chief Complaint: Cellulitis IVDA Reason for Consult: OUD HPI Narrative: Patient is a 66 year old male with history of OUD currently medically admitted with cellulitis to [facility]. Patient known to [facility] via previous admissions. He was seen in ED room 14 awaiting transfer to medical floor. Awake, alert, tearful, but engaged in interview. Reports that he had been engaged in treatment with [facility] up until last week. States his dose was at 45mg. Unclear why he stopped treatment. He reports withdrawal sx, including chills, body aches, joint pain, and anxiety. Last use reported as being two days ago. He appears uncomfortable. Review of Systems Constitutional: Reports as per HPI Diagnostics Vital Signs (24Hr): Vital Signs - 24 hr 07/18/22 09:34 Temperature 97.9 F Pulse Rate 64 Respiratory Rate 18 Blood Pressure 126/52 L Pulse Oximetry 98 Oxygen Delivery Method Room Air BMI result Body Mass Index 25.8 Labs Results: 07/18/22 10:56 07/18/22 10:56 Labs: Laboratory Results - last 48 hr 07/18/22 07/18/22 07/18/22 10:56 10:56 10:56 WBC 5.2 RBC 3.82 L Hgb 10.3 L Hct 32.8 L MCV 85.9 MCH 27.0 MCHC 31.4 RDW 16.3 H Plt Count 120 L MPV 10.9 Immature Gran % (Auto) 0.4 Neut % (Auto) 56.3 Lymph % (Auto) 19.4 L [place] % (Auto) 12.7 H Eos % (Auto) 10.6 H Baso % (Auto) 0.6 Lymph # (Auto) 1.0 L [place] # (Auto) 0.7 Eos # (Auto) 0.6 H Baso # (Auto) 0.0 Abs Immat Gran (auto) 0.02 Absolute Neuts (auto) 2.9 Absolute Nucleated RBC 0.000 Nucleated RBC % (auto) 0.0 ESR 25 H PT INR Sodium 139 Potassium 4.0 Chloride 110 H Carbon Dioxide 24 Anion Gap 9 L BUN 21 H Creatinine 0.78 Estim Creat Clear Calc 97.4 Estimated GFR > 60 Random Glucose 92 Lactic Acid Calcium 8.7 Magnesium 1.7 Total Bilirubin 0.7 Direct Bilirubin 0.3 AST 72 H ALT 42 H Alkaline Phosphatase 136 H C-Reactive Protein 0.66 H B-Natriuretic Peptide Total Protein 6.7 Albumin 2.9 L Urine Opiates Screen Urine Fentanyl Screen Ur Barbiturates Screen Ur Phencyclidine Scrn Ur Amphetamines Screen U Benzodiazepines Scrn Urine Cocaine Screen U Marijuana (THC) Screen COVID-19 (JACQUE) COVID-19 Clin Com Influenza Type A (DALI) Influenza Type B (DALI) Influenza A & B Note 07/18/22 07/18/22 07/18/22 10:56 10:56 10:56 WBC RBC Hgb Hct MCV MCH MCHC RDW Plt Count MPV Immature Gran % (Auto) Neut % (Auto) Lymph % (Auto) [place] % (Auto) Eos % (Auto) Baso % (Auto) Lymph # (Auto) [place] # (Auto) Eos # (Auto) Baso # (Auto) Abs Immat Gran (auto) Absolute Neuts (auto) Absolute Nucleated RBC Nucleated RBC % (auto) ESR PT 14.9 H INR 1.3 H Sodium Potassium Chloride Carbon Dioxide Anion Gap BUN Creatinine Estim Creat Clear Calc Estimated GFR Random Glucose Lactic Acid 0.9 Calcium Magnesium Total Bilirubin Direct Bilirubin AST ALT Alkaline Phosphatase C-Reactive Protein B-Natriuretic Peptide 230 H Total Protein Albumin Urine Opiates Screen Urine Fentanyl Screen Ur Barbiturates Screen Ur Phencyclidine Scrn Ur Amphetamines Screen U Benzodiazepines Scrn Urine Cocaine Screen U Marijuana (THC) Screen COVID-19 (JACQUE) COVID-19 Clin Com Influenza Type A (DALI) Influenza Type B (DALI) Influenza A & B Note 07/18/22 07/18/22 07/18/22 10:56 10:56 11:58 WBC RBC Hgb Hct MCV MCH MCHC RDW Plt Count MPV Immature Gran % (Auto) Neut % (Auto) Lymph % (Auto) [place] % (Auto) Eos % (Auto) Baso % (Auto) Lymph # (Auto) [place] # (Auto) Eos # (Auto) Baso # (Auto) Abs Immat Gran (auto) Absolute Neuts (auto) Absolute Nucleated RBC Nucleated RBC % (auto) ESR PT INR Sodium Potassium Chloride Carbon Dioxide Anion Gap BUN Creatinine Estim Creat Clear Calc Estimated GFR Random Glucose Lactic Acid Calcium Magnesium Total Bilirubin Direct Bilirubin AST ALT Alkaline Phosphatase C-Reactive Protein B-Natriuretic Peptide Total Protein Albumin Urine Opiates Screen Not Detected Urine Fentanyl Screen POSITIVE H Ur Barbiturates Screen Not Detected Ur Phencyclidine Scrn Not Detected Ur Amphetamines Screen Not Detected U Benzodiazepines Scrn Not Detected Urine Cocaine Screen POSITIVE H U Marijuana (THC) Screen Not Detected COVID-19 (JACQUE) Negative COVID-19 Clin Com See Note Influenza Type A (DALI) Negative Influenza Type B (DALI) Negative Influenza A & B Note See Note Imaging Radiology Impressions: ITS Impressions Tibia/Fibula X-Ray 07/18/22 10:45 IMPRESSION: 1. Diffuse segments of periosteal thickening involving the tibia and fibula likely secondary to edema, less likely varicosities. However, no varicosities seen at this time. There is bimalleolar soft tissue swelling. No bony erosive changes seen. The bony cortex is normal. 2. No major change compared to previous study 04/11/2022. Venous Duplex 07/18/22 11:24 IMPRESSION: No DVT demonstrated in the right lower extremity. The peroneal veins however are unable to the visualized by the acoustic intelligence specialist Mental Status Exam Mental Status Exam Patient Appearance: Unkempt Patient Orientation: Person, Place, Time and Situation Level of Consciousness: Awake and Appropriate Patient Behavior: Appropriate Affect Description: Anxious Patient Cognition Impaired: No Medications Medications Current Medications Acetaminophen (Acetaminophen 325 Mg Tablet) 650 mg PO Q6H PRN PRN Reason: Pain, Mild, fever Docusate Sodium (Docusate Sodium 100 Mg Capsule) 100 mg PO BID PRN PRN Reason: constipation Enoxaparin Sodium (Enoxaparin Sodium 40 Mg/0.4 Ml Syringe) 40 mg SUBCUT Q24H ON LICENSE OF [facility] Last Admin: 07/18/22 16:28 Dose: 40 mg Vancomycin HCl 750 mg/ Sodium (Chloride) 265 mls @ 265 mls/hr IV Q12H ON LICENSE OF [facility] Methadone HCl (Methadone Hcl 20 Mg/2 Ml Oral.Conc) 40 mg PO DAILY ON LICENSE OF [facility] Last Admin: 07/18/22 16:28 Dose: 40 mg Ondansetron HCl (Ondansetron Hcl 4 Mg/2 Ml Vial) 4 mg IVPUSH Q8H PRN PRN Reason: Nausea and Vomiting Pharmacy Consult (Consult Rx Vancomycin Dosing) 1 each MISCELLANE DAILY PRN PRN Reason: Consult order Sodium Chloride (0.9 % Sodium Chloride Flush 3 Ml Syringe) 3 ml IVFLUSH QSHIFT ON LICENSE OF [facility] Last Admin: 07/18/22 16:29 Dose: Not Given Allergies Allergies Allergy/AdvReac Type Severity Reaction Status Date / Time trazodone [TRAZODONE] Allergy Intermediate RESTLESS Verified 07/18/22 09:34 LEGS Assessment & Plan Assessment & Plan (1) Opioid use disorder: Status: Acute Code(s): F11.99 - Opioid use, unspecified with unspecified opioid-induced disorder Assessment and Plan: acute withdrawal ---methadone 40mg QD ordered -dose to be given now RSRN to check in with [facility] to verify dose and patients status in program will continue to follow Total time managing care of this patient today __25__ minutes. 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 Opiate dependence Opioid use disorder Polysubstance abuse Tobacco dependence Varicose veins of right lower extremity with inflammation Venous stasis ulcer Family History Family History Mother CAD (coronary artery disease) ESRD (end stage renal disease) Brother Liver failure Surgical History Surgical History H/O hernia repair Social History Social History Household Members: Other Household Members Other:: Currently residing in a rehab facility Housing: Homeless Housing Other:: Currently residing in a rehab facility Do you presently have visiting nurse or other home services: No Unable to assess alcohol history related to: Unknown Alcohol intake: never Patient Tobacco Use Status: Former Tobacco user Tobacco use type: Cigarette Cigarettes Per Day: 2 Years Smoked: 40 Smoked in Last 30 Days: No e-Cigarette/Vaping Use: Never Used Second Hand Smoke Exposure: Yes Substance Use Type: Crack/Cocaine and Heroin Advance Directives: Yes Advance Directives on File: Yes Advance Directives Date on File: 02/11/21 service: No Current occupational status: disabled
--- NOTE | 2022-07-18 17:36 | PC.NURSE ---
Report given to Josselyn MARTINEZ patient ready for transfer . patient aware of plan of care .
[2022-07-18 17:56] VITALS: BP 171/78; PULSE 62; RESP 16; TEMP 36.8; O2SAT 99
[2022-07-18 20:00] VITALS: BP 118/58; PULSE 71; RESP 18; TEMP 36.6; O2SAT 97
[2022-07-18] MEDS: vancomycin HCL 750 MG in 0.9 % Sodium Chloride 250 ML 265 MG IV (23:03)
[2022-07-18] MEDS: 0.9 % Sodium Chloride Flush 3 ML SYRINGE IVFLUSH (23:04)
[2022-07-19 03:59] VITALS: BP 132/60; PULSE 65; RESP 17; TEMP 37.3; O2SAT 96
[2022-07-19 07:14] LABS: Creatinine Clr Calc Pharmacy 97.4; Estimated Glomerular Filt Rate > 60
[2022-07-19 08:00] VITALS: BP 123/58; PULSE 59; RESP 18; TEMP 36.8; O2SAT 96
[2022-07-19] MEDS: methADONE HCl 20 MG/2 ML ORAL.CONC 40 MG PO (08:08)
--- NOTE | 2022-07-19 08:27 | MHC.RECOVRN ---
Spoke with Desirae at [facility], pt last dosed in April, 45 mg.
--- NOTE | 2022-07-19 08:34 | P.PNIM_ITS ---
Subjective Subjective Date of Service: 07/19/22 Interval History: Seen in follow-up for cellulitis right lower extremity and opiate dependence Interval history: No complaints, resting in bed. Denies any pain. Seen by Addiction Medicine will be resuming methadone Review of Systems General: No fevers, malaise, unintentional weight loss Cardiovascular: No chest pain, palpitations, or leg edema Respiratory: No shortness of breath, wheezing, cough GI: No abdominal pain, nausea, vomiting, diarrhea : No dysuria MSK: No myalgia, back pain Neuro: No headaches, weakness, paresthesias Skin: No rashes or lesions Physical Exam Vital Signs: Vital Signs: Last Vital Signs Temp 98.2 F 07/19/22 08:00 Pulse 59 07/19/22 08:00 Resp 18 07/19/22 08:00 BP 123/58 L 07/19/22 08:00 Pulse Ox 96 07/19/22 08:00 O2 Del Method 07/19/22 08:00 BMI result Body Mass Index 25.8 Constitutional - Awake and Alert, No apparent distress Eyes - PERRLA, EOMI Cardiovascular - S1S2, RRR, No edema, III/ systolic murmur aortic and pulmonic area, IV/ holosystolic murmur tricuspid area Respiratory - Normal lung expansion, Normal respiratory effort, No respiratory distress, CTA bilaterally Extremities - no calf tenderness bilaterally, swelling RLE without edema with erythema and wamrth. Chronic venous stasis changes BLE R>L. Shallow 3.5cm x 1cm curvilinear shallow ulceration of the right medial malleolus.? Multiple shallow subcentimeter ulcerations of the right foot limited to breakdown of skin.? No purulent drainage noted on the skin but is observed on dressing.?Unchanged from yesterday Skin - Warm/Dry Neurological - Alert & oriented x3 Psychological - Appropriate affect Objective Data Active Medications Acetaminophen (Acetaminophen 325 Mg Tablet) 650 mg PO Q6H PRN PRN Reason: Pain, Mild, fever Docusate Sodium (Docusate Sodium 100 Mg Capsule) 100 mg PO BID PRN PRN Reason: constipation Enoxaparin Sodium (Enoxaparin Sodium 40 Mg/0.4 Ml Syringe) 40 mg SUBCUT Q24H [facility] Last Admin: 07/18/22 16:28 Dose: 40 mg Documented By: MONCHO Vancomycin HCl 750 mg/ Sodium (Chloride) 265 mls @ 265 mls/hr IV Q12H [facility] Last Infusion: 07/19/22 00:28 Dose: 0 mls/hr Documented By: CASTILM Methadone HCl (Methadone Hcl 20 Mg/2 Ml Oral.Conc) 40 mg PO DAILY [facility] Last Admin: 07/19/22 08:08 Dose: 40 mg Documented By: APRIL Ondansetron HCl (Ondansetron Hcl 4 Mg/2 Ml Vial) 4 mg IVPUSH Q8H PRN PRN Reason: Nausea and Vomiting Pharmacy Consult (Consult Rx Vancomycin Dosing) 1 each MISCELLANE DAILY PRN PRN Reason: Consult order Sodium Chloride (0.9 % Sodium Chloride Flush 3 Ml Syringe) 3 ml IVFLUSH QSHIFT [facility] Last Admin: 07/19/22 07:01 Dose: Not Given Documented By: APRIL Non-Admin Reason: See Note Labs CBC & Chem 7: 07/18/22 10:56 07/19/22 06:05 Labs: Laboratory Results - last 24 hr 07/18/22 07/18/22 07/18/22 10:56 10:56 10:56 MCV 85.9 MCH 27.0 MCHC 31.4 RDW 16.3 H Plt Count 120 L MPV 10.9 Immature Gran % (Auto) 0.4 Neut % (Auto) 56.3 Lymph % (Auto) 19.4 L [place] % (Auto) 12.7 H Eos % (Auto) 10.6 H Baso % (Auto) 0.6 Lymph # (Auto) 1.0 L [place] # (Auto) 0.7 Eos # (Auto) 0.6 H Baso # (Auto) 0.0 Abs Immat Gran (auto) 0.02 Absolute Neuts (auto) 2.9 Absolute Nucleated RBC 0.000 Nucleated RBC % (auto) 0.0 ESR 25 H PT INR Anion Gap 9 L Estim Creat Clear Calc 97.4 Estimated GFR > 60 Random Glucose 92 Lactic Acid Calcium 8.7 Magnesium 1.7 Total Bilirubin 0.7 Direct Bilirubin 0.3 AST 72 H ALT 42 H Alkaline Phosphatase 136 H C-Reactive Protein 0.66 H B-Natriuretic Peptide Total Protein 6.7 Albumin 2.9 L Urine Opiates Screen Urine Fentanyl Screen Ur Barbiturates Screen Ur Phencyclidine Scrn Ur Amphetamines Screen U Benzodiazepines Scrn Urine Cocaine Screen U Marijuana (THC) Screen COVID-19 (JACQUE) COVID-19 Clin Com Influenza Type A (DALI) Influenza Type B (DALI) Influenza A & B Note 07/18/22 07/18/22 07/18/22 10:56 10:56 10:56 MCV MCH MCHC RDW Plt Count MPV Immature Gran % (Auto) Neut % (Auto) Lymph % (Auto) [place] % (Auto) Eos % (Auto) Baso % (Auto) Lymph # (Auto) [place] # (Auto) Eos # (Auto) Baso # (Auto) Abs Immat Gran (auto) Absolute Neuts (auto) Absolute Nucleated RBC Nucleated RBC % (auto) ESR PT 14.9 H INR 1.3 H Anion Gap Estim Creat Clear Calc Estimated GFR Random Glucose Lactic Acid 0.9 Calcium Magnesium Total Bilirubin Direct Bilirubin AST ALT Alkaline Phosphatase C-Reactive Protein B-Natriuretic Peptide 230 H Total Protein Albumin Urine Opiates Screen Urine Fentanyl Screen Ur Barbiturates Screen Ur Phencyclidine Scrn Ur Amphetamines Screen U Benzodiazepines Scrn Urine Cocaine Screen U Marijuana (THC) Screen COVID-19 (JACQUE) COVID-19 Clin Com Influenza Type A (DALI) Influenza Type B (DALI) Influenza A & B Note 07/18/22 07/18/22 07/18/22 10:56 10:56 11:58 MCV MCH MCHC RDW Plt Count MPV Immature Gran % (Auto) Neut % (Auto) Lymph % (Auto) [place] % (Auto) Eos % (Auto) Baso % (Auto) Lymph # (Auto) [place] # (Auto) Eos # (Auto) Baso # (Auto) Abs Immat Gran (auto) Absolute Neuts (auto) Absolute Nucleated RBC Nucleated RBC % (auto) ESR PT INR Anion Gap Estim Creat Clear Calc Estimated GFR Random Glucose Lactic Acid Calcium Magnesium Total Bilirubin Direct Bilirubin AST ALT Alkaline Phosphatase C-Reactive Protein B-Natriuretic Peptide Total Protein Albumin Urine Opiates Screen Not Detected Urine Fentanyl Screen POSITIVE H Ur Barbiturates Screen Not Detected Ur Phencyclidine Scrn Not Detected Ur Amphetamines Screen Not Detected U Benzodiazepines Scrn Not Detected Urine Cocaine Screen POSITIVE H U Marijuana (THC) Screen Not Detected COVID-19 (JACQUE) Negative COVID-19 Clin Com See Note Influenza Type A (DALI) Negative Influenza Type B (DALI) Negative Influenza A & B Note See Note 07/19/22 06:05 MCV MCH MCHC RDW Plt Count MPV Immature Gran % (Auto) Neut % (Auto) Lymph % (Auto) [place] % (Auto) Eos % (Auto) Baso % (Auto) Lymph # (Auto) [place] # (Auto) Eos # (Auto) Baso # (Auto) Abs Immat Gran (auto) Absolute Neuts (auto) Absolute Nucleated RBC Nucleated RBC % (auto) ESR PT INR Anion Gap Estim Creat Clear Calc 97.4 Estimated GFR > 60 Random Glucose Lactic Acid Calcium Magnesium Total Bilirubin Direct Bilirubin AST ALT Alkaline Phosphatase C-Reactive Protein B-Natriuretic Peptide Total Protein Albumin Urine Opiates Screen Urine Fentanyl Screen Ur Barbiturates Screen Ur Phencyclidine Scrn Ur Amphetamines Screen U Benzodiazepines Scrn Urine Cocaine Screen U Marijuana (THC) Screen COVID-19 (JACQUE) COVID-19 Clin Com Influenza Type A (DALI) Influenza Type B (DALI) Influenza A & B Note Assessment and Plan (1) Cellulitis: Status: Acute (2) Opioid use disorder: Status: Acute (3) Substance abuse: Status: Acute Plan 66 year old male with history of polysubstance abuse (heroin and cocaine) including IVDA, opiate depedence on methadone, hx hep c with compensated cirrhosis, PVD with chronic venous stasis ulcerations of RLE, depression, and former smoker admitted due to cellulitis RLE and polysubstance use disorder #Acute cellulitis RLE -Recurrent cellulitis with chronic venous stasis RLE -No sepsis. Blood cultures pending -Xray tib/fib negative for osteomyelitis. Venous duplex negative for DVT -Continue vanco IV at risk for MRSA d/t IVDA #Chronic venous stasis ulcer with cellulitis -Recommend outpt follow up with Dr. [place] in vascular -Tx as above #Opiate dependence -UTox positive for fentanyl and cocaine -[facility] -Addiction Medicine resuming methadone. Following #Cirrhosis, compensated with history of hepatitis C- stable -LFTs at baseline #Depression- stable -Continue fluoxetine #Elevated BNP -Slightly elevated from baseline at 230 (baseline 183) -Clinically euvolemic and asymptomatic. No acute HF -Recommend outpt echocardiogram #Cardiac murmur -Per patient not new -Asymptomatic -Outpt follow up with echo DVT prophylaxis- lovenox Full code Dispo- Will likely d/c tomorrow pending response to IV vanco on PO abx to substance abuse rehab facility Patient requires ongoing inpatient stay for treatment of RLE cellulitis requires IV antibiotics and is at risk for serious infection including MRSA Time Spent With Patient Time: Total time managing care of this patient today 20 minutes. Quality Stroke Does the patient have a stroke diagnosis?: No VTE Prior VTE?: No VTE Risk Level:: Medical - moderate - high VTE Device Contraindication: Treatment Not Indicated VTE Drug Contraindication: N/A - Med Ordered
--- NOTE | 2022-07-19 10:26 | MHC.CM.PN ---
PATIENT HAS BEEN STAYING WITH HIS SISTER IN [place]. HE USES A CANE WHICH I LOST AGAIN FEELS SAFE TO AMBULATE WITHOUT WHILE HERE. NO HCP ON FILE REPORTS COVID VAX X 2 PER REQUEST, REFERRAL TO [facility] FOR LT IV ABX (IF NEEDED) IMM 07/19 IN CHART
[2022-07-19] MEDS: vancomycin HCL 750 MG in 0.9 % Sodium Chloride 250 ML 265 MG IV ×2 (10:35→22:50)
--- NOTE | 2022-07-19 12:31 | MHC.CM.PN ---
CALL FROM PATIENT'S SISTER, DAR ([phone]) STATES THAT SHE JUST HUNG UP WITH HER BROTHER AND TOLD HIM THAT HE CANNOT DC TO HER HOME AT [place]. SHE ASKS THAT CM FIND HIM A HOME TO STAY
[2022-07-19] MEDS: Enoxaparin Sodium 40 MG/0.4 ML SYRINGE SUBCUT (14:24)
--- NOTE | 2022-07-19 15:57 | MHC.RECOVRN ---
Pt is interested in further NICOLE tx once dc from [facility]. Spoke with Halima in intake at [facility] who will conduct phone screen today with possible admission to [facility] tomorrow. Referral has been faxed.
[2022-07-19 16:00] VITALS: BP 125/58; PULSE 72; RESP 20; TEMP 36.3; O2SAT 97
--- NOTE | 2022-07-19 16:50 | HO.ADDICTPRO ---
Subjective Subjective Date of Service: 07/19/22 Reason For Visit: Cellulitis IVDA Interim History: Patient seen in followup Appearing comfortable, engaged in interview Reports that 40mg methadone has been effective and wants to remain at this dose for now. Denies any withdrawal sx Seen with RSRN, patient reporting that he has a bed available at [facility]--verified by RN that this was inaccurate. Patient open to admission anywhere else. Review of Systems Review of Systems: as per HPI Review of Systems Constitutional: Reports as per HPI Mental Status Exam Mental Status Exam Patient Appearance: Appropriate (in hospital attire) Mood Description: Calm and Appropriate Affect Description: Calm Patient Cognition Impaired: No Speech Pattern: Clear Judgement: Fair Diagnostics Vital Signs (24Hr): Vital Signs - 24 hr 07/18/22 17:56 07/18/22 20:00 07/19/22 03:59 Temperature 98.3 F 97.9 F 99.2 F Pulse Rate 62 71 65 Respiratory Rate 16 18 17 Blood Pressure 171/78 H 118/58 L 132/60 Pulse Oximetry 99 97 96 Oxygen Delivery Method Room Air Room Air Room Air 07/19/22 08:00 07/19/22 16:00 Temperature 98.2 F 97.3 F Pulse Rate 59 72 Respiratory Rate 18 20 Blood Pressure 123/58 L 125/58 L Pulse Oximetry 96 97 Oxygen Delivery Method Room Air Room Air BMI result Body Mass Index 25.8 Labs Results: 07/18/22 10:56 07/19/22 06:05 Labs: Laboratory Results - last 48 hr 07/18/22 07/18/22 07/18/22 10:56 10:56 10:56 WBC 5.2 RBC 3.82 L Hgb 10.3 L Hct 32.8 L MCV 85.9 MCH 27.0 MCHC 31.4 RDW 16.3 H Plt Count 120 L MPV 10.9 Immature Gran % (Auto) 0.4 Neut % (Auto) 56.3 Lymph % (Auto) 19.4 L [place] % (Auto) 12.7 H Eos % (Auto) 10.6 H Baso % (Auto) 0.6 Lymph # (Auto) 1.0 L [place] # (Auto) 0.7 Eos # (Auto) 0.6 H Baso # (Auto) 0.0 Abs Immat Gran (auto) 0.02 Absolute Neuts (auto) 2.9 Absolute Nucleated RBC 0.000 Nucleated RBC % (auto) 0.0 ESR 25 H PT INR Sodium 139 Potassium 4.0 Chloride 110 H Carbon Dioxide 24 Anion Gap 9 L BUN 21 H Creatinine 0.78 Estim Creat Clear Calc 97.4 Estimated GFR > 60 Random Glucose 92 Lactic Acid Calcium 8.7 Magnesium 1.7 Total Bilirubin 0.7 Direct Bilirubin 0.3 AST 72 H ALT 42 H Alkaline Phosphatase 136 H C-Reactive Protein 0.66 H B-Natriuretic Peptide Total Protein 6.7 Albumin 2.9 L Urine Opiates Screen Urine Fentanyl Screen Ur Barbiturates Screen Ur Phencyclidine Scrn Ur Amphetamines Screen U Benzodiazepines Scrn Urine Cocaine Screen U Marijuana (THC) Screen COVID-19 (JACQUE) COVID-19 Clin Com Influenza Type A (DALI) Influenza Type B (DALI) Influenza A & B Note 07/18/22 07/18/22 07/18/22 10:56 10:56 10:56 WBC RBC Hgb Hct MCV MCH MCHC RDW Plt Count MPV Immature Gran % (Auto) Neut % (Auto) Lymph % (Auto) [place] % (Auto) Eos % (Auto) Baso % (Auto) Lymph # (Auto) [place] # (Auto) Eos # (Auto) Baso # (Auto) Abs Immat Gran (auto) Absolute Neuts (auto) Absolute Nucleated RBC Nucleated RBC % (auto) ESR PT 14.9 H INR 1.3 H Sodium Potassium Chloride Carbon Dioxide Anion Gap BUN Creatinine Estim Creat Clear Calc Estimated GFR Random Glucose Lactic Acid 0.9 Calcium Magnesium Total Bilirubin Direct Bilirubin AST ALT Alkaline Phosphatase C-Reactive Protein B-Natriuretic Peptide 230 H Total Protein Albumin Urine Opiates Screen Urine Fentanyl Screen Ur Barbiturates Screen Ur Phencyclidine Scrn Ur Amphetamines Screen U Benzodiazepines Scrn Urine Cocaine Screen U Marijuana (THC) Screen COVID-19 (JACQUE) COVID-19 Clin Com Influenza Type A (DALI) Influenza Type B (DALI) Influenza A & B Note 07/18/22 07/18/22 07/18/22 10:56 10:56 11:58 WBC RBC Hgb Hct MCV MCH MCHC RDW Plt Count MPV Immature Gran % (Auto) Neut % (Auto) Lymph % (Auto) [place] % (Auto) Eos % (Auto) Baso % (Auto) Lymph # (Auto) [place] # (Auto) Eos # (Auto) Baso # (Auto) Abs Immat Gran (auto) Absolute Neuts (auto) Absolute Nucleated RBC Nucleated RBC % (auto) ESR PT INR Sodium Potassium Chloride Carbon Dioxide Anion Gap BUN Creatinine Estim Creat Clear Calc Estimated GFR Random Glucose Lactic Acid Calcium Magnesium Total Bilirubin Direct Bilirubin AST ALT Alkaline Phosphatase C-Reactive Protein B-Natriuretic Peptide Total Protein Albumin Urine Opiates Screen Not Detected Urine Fentanyl Screen POSITIVE H Ur Barbiturates Screen Not Detected Ur Phencyclidine Scrn Not Detected Ur Amphetamines Screen Not Detected U Benzodiazepines Scrn Not Detected Urine Cocaine Screen POSITIVE H U Marijuana (THC) Screen Not Detected COVID-19 (JACQUE) Negative COVID-19 Clin Com See Note Influenza Type A (DALI) Negative Influenza Type B (DALI) Negative Influenza A & B Note See Note 07/19/22 06:05 WBC RBC Hgb Hct MCV MCH MCHC RDW Plt Count MPV Immature Gran % (Auto) Neut % (Auto) Lymph % (Auto) [place] % (Auto) Eos % (Auto) Baso % (Auto) Lymph # (Auto) [place] # (Auto) Eos # (Auto) Baso # (Auto) Abs Immat Gran (auto) Absolute Neuts (auto) Absolute Nucleated RBC Nucleated RBC % (auto) ESR PT INR Sodium Potassium Chloride Carbon Dioxide Anion Gap BUN Creatinine 0.78 Estim Creat Clear Calc 97.4 Estimated GFR > 60 Random Glucose Lactic Acid Calcium Magnesium Total Bilirubin Direct Bilirubin AST ALT Alkaline Phosphatase C-Reactive Protein B-Natriuretic Peptide Total Protein Albumin Urine Opiates Screen Urine Fentanyl Screen Ur Barbiturates Screen Ur Phencyclidine Scrn Ur Amphetamines Screen U Benzodiazepines Scrn Urine Cocaine Screen U Marijuana (THC) Screen COVID-19 (JACQUE) COVID-19 Clin Com Influenza Type A (DALI) Influenza Type B (DALI) Influenza A & B Note Imaging Radiology Impressions: ITS Impressions Tibia/Fibula X-Ray 07/18/22 10:45 IMPRESSION: 1. Diffuse segments of periosteal thickening involving the tibia and fibula likely secondary to edema, less likely varicosities. However, no varicosities seen at this time. There is bimalleolar soft tissue swelling. No bony erosive changes seen. The bony cortex is normal. 2. No major change compared to previous study 04/11/2022. Venous Duplex 07/18/22 11:24 IMPRESSION: No DVT demonstrated in the right lower extremity. The peroneal veins however are unable to the visualized by the erp implementation consultant Medications Medications Current Medications Acetaminophen (Acetaminophen 325 Mg Tablet) 650 mg PO Q6H PRN PRN Reason: Pain, Mild, fever Docusate Sodium (Docusate Sodium 100 Mg Capsule) 100 mg PO BID PRN PRN Reason: constipation Enoxaparin Sodium (Enoxaparin Sodium 40 Mg/0.4 Ml Syringe) 40 mg SUBCUT Q24H REPLACED BY [facility] Last Admin: 07/19/22 14:24 Dose: 40 mg Vancomycin HCl 750 mg/ Sodium (Chloride) 265 mls @ 265 mls/hr IV Q12H REPLACED BY [facility] Last Infusion: 07/19/22 11:40 Dose: Infused Methadone HCl (Methadone Hcl 20 Mg/2 Ml Oral.Conc) 40 mg PO DAILY [facility]PL[facility]ED BY [facility] Last Admin: 07/19/22 08:08 Dose: 40 mg Ondansetron HCl (Ondansetron Hcl 4 Mg/2 Ml Vial) 4 mg IVPUSH Q8H PRN PRN Reason: Nausea and Vomiting Pharmacy Consult (Consult Rx Vancomycin Dosing) 1 each MISCELLANE DAILY PRN PRN Reason: Consult order Sodium Chloride (0.9 % Sodium Chloride Flush 3 Ml Syringe) 3 ml IVFLUSH QSHIFT REPLACED BY [facility] Last Admin: 07/19/22 14:26 Dose: Not Given Allergies Allergies Allergy/AdvReac Type Severity Reaction Status Date / Time trazodone [TRAZODONE] Allergy Intermediate RESTLESS Verified 07/18/22 09:34 LEGS Assessment & Plan Assessment & Plan (1) Opioid use disorder: Status: Acute Code(s): F11.99 - Opioid use, unspecified with unspecified opioid-induced disorder Assessment and Plan: continue methadone at current dose RSRN working on coordination of care once medically cleared--will likely be going to [facility] Total time managing care of this patient today _30___ minutes.
[2022-07-19 19:27] VITALS: BP 130/53; PULSE 69; RESP 20; TEMP 36.7; O2SAT 98
[2022-07-19 22:22] LABS: Vancomycin Random 13.4 mcg/mL (15-20)
--- NOTE | 2022-07-19 22:47 | HE.PHANOTE ---
VANCO LEVEL 13.4, AUC SUGGESTED 416, FOR SKIN. KEEP SAME DOSE
[2022-07-19] MEDS: 0.9 % Sodium Chloride Flush 3 ML SYRINGE IVFLUSH (22:50)
[2022-07-20 04:00] VITALS: BP 124/58; PULSE 63; RESP 16; TEMP 36.4; O2SAT 97
[2022-07-20 07:22] LABS: Creatinine Clr Calc Pharmacy 92.7; Estimated Glomerular Filt Rate > 60
[2022-07-20 08:00] VITALS: BP 131/60; PULSE 70; RESP 16; TEMP 37.4; O2SAT 95
--- NOTE | 2022-07-20 09:41 | P.DS_ITS ---
DS: Providers Provider Date of Service: 07/20/22 Date of admission: 07/18/22 14:27 Primary care physician: [facility] Consults: 07/18/22 14:27 Addiction Medicine Routine Consulting Provider: Addiction Covering Reason for consultation: heroin and cocaine abuse, previously on methadone DS: Diagnosis Discharge Diagnosis (1) Opioid use disorder: Status: Acute DS: Summary Hospital Course Hospital Course: from initial hpi: Chief Complaint: RLE infection 66 year old male with history of polysubstance abuse (heroin and cocaine) including IVDA, opiate depedence on methadone, hx hep c with compensated cirrhosis, PVD with chronic venous stasis ulcerations of BLE, depression, and former smoker presented to the ED for evaluation for evaluation of recurrent RLE infection worsening over the last 4 days with increased swelling, purulent/malorodous drainage. Denies fevers but states has had chills.? He is also an IV drug abuser and had previously been taking methadone but states he was briefly incarcerated so he has been unable to obtain this prescription over the last 3 days.? Last IV heroin and cocaine use was 2 days ago into the right upper extremity.? He desires detox.? In the ED, vital signs have been stable, patient is afebrile.? No leukocytosis.? Stable normocytic anemia with H/H 10.3/32.8%, consistent with baseline.? Platelets 120.? Renal function and electrolyte levels normal.? Elevated LFTs, consistent with baseline.? CRP 0.66, ESR 25.? BNP slightly elevated from baseline at 230.? No known history of heart failure.? Denies any orthopnea, PND, dyspnea on exertion, lightheadedness, palpitations, chest pain.? He denies any pain at this time.? U tox positive for fentanyl and cocaine.? Venous duplex negative for DVT.? Tibia/fibula x-ray showing diffuse segments of periosteal thickening involving the tibia and fibula likely secondary to edema, by malleolar soft tissue swelling, no bony erosive changes, bony cortex normal, unchanged from prior imaging.? He was given empiric dose of vancomycin with blood cultures pending.? Patient to be admitted for cellulitis of the right lower extremity an IV drug abuser. ? hospital course: Patient was admitted for acute cellulitis of the right lower extremity. He was treated with IV vancomycin with improvement of symptoms. he will be discharged on 7 more days of p.o. doxycycline. Venous duplex was negative for DVT, cultures were negative. For his chronic venous stasis is recommended follow-up outpatient with vascular surgery. Resolved be dependence he was continue methadone and on discharge. for his compensated HCV cirrhosis he remained at baseline. For his depression use continue fluoxetine. noted to have murmur on exam, should have echo as oupatient. Time Spent with Patient Time attestation: Total time managing care of this patient today ____ minutes. Discharge coordination time: Greater than 30 minutes Quality: Safe Use of Opioids Does Pt have an Active Cancer Diagnosis on the Problem List?: No Quality: Stroke Does the patient have a stroke diagnosis?: No Physical Exam Vital Signs: Vital Signs: Last Vital Signs Temp 99.3 F 07/20/22 08:00 Pulse 70 07/20/22 08:00 Resp 16 07/20/22 08:00 BP 131/60 07/20/22 08:00 Pulse Ox 95 07/20/22 08:00 O2 Del Method 07/20/22 08:00 BMI result Body Mass Index 25.8 Constitutional - Awake and Alert, No apparent distress Eyes - PERRLA, EOMI Cardiovascular - S1S2, RRR, No edema, III/ systolic murmur aortic and pulmonic area, IV/ holosystolic murmur tricuspid area Respiratory - Normal lung expansion, Normal respiratory effort, No respiratory distress, CTA bilaterally Extremities - no calf tenderness bilaterally, swelling RLE without edema with erythema and wamrth. Chronic venous stasis changes BLE R>L. Shallow 3.5cm x 1cm curvilinear shallow ulceration of the right medial malleolus.? Multiple shallow subcentimeter ulcerations of the right foot limited to breakdown of skin.? No purulent drainage noted on the skin but is observed on dressing. overall improved Skin - Warm/Dry Neurological - Alert & oriented x3 Psychological - Appropriate affect DS: Data Data Completed and Pending Completed studies during hospitalization [Text1]: Procedures Detoxification Services for Substance Abuse Treatment (11/28/20) Labs on day of discharge: Laboratory Results - last 24 hr 07/19/22 07/20/22 21:06 06:04 Creatinine 0.82 Estim Creat Clear Calc 92.7 Estimated GFR > 60 Random Vancomycin 13.4 L Preliminary micro results at discharge 07/18/22 10:56 Blood Culture - Preliminary Blood - Venous No growth after 24 hours. 07/18/22 10:56 Blood Culture - Preliminary Blood - Venous No growth after 24 hours. Discharge Plan Discharge Anticipated Discharge Date/Time: 07/20/22 09:39 Patient Disposition: Xfer Other Discharge Diagnosis: cellulitis Referrals: [place],[facility] [Primary Care Provider] - 1 Week Discharge Medications: New doxycycline hyclate 100 mg capsule 100 mg PO Q12H Qty: 14 0RF Continued fluoxetine 40 mg capsule 1 cap PO DAILY prazosin 1 mg capsule 1 cap PO BEDTIME diphenhydramine HCl [Benadryl] 25 mg capsule 2 cap PO BEDTIME methadone [Methadone Intensol] 10 mg/mL Concentrate 45 mg PO DAILY (DME) Ultra-Light Rollator Misc See Rx Instructions .Route Qty: 1 0RF Rx Instructions: As directed Discharge Orders: Discharge Order (Routine); Ordered 07/20/22 Ordered By: Kumar Mckinney Diet: Advance to usual diet Activity on Discharge: As tolerated Stand Alone Forms: Patient Portal Discharge page Other Ambulatory Orders: CA echo transthoracic complete (Routine) Timeframe: 1 Week Facility: [facility] - Location: Cardiology Ordered By: Kumar Mckinney Care Plan Goals: recvoery Health Concerns: cellulitis Plan of Treatment: 7 days doxy, outpatient echo Assessment: see above
[2022-07-20] MEDS: 0.9 % Sodium Chloride Flush 3 ML SYRINGE IVFLUSH (10:12)
[2022-07-20] MEDS: methADONE HCl 20 MG/2 ML ORAL.CONC 40 MG PO (10:12)
[2022-07-20] MEDS: vancomycin HCL 750 MG in 0.9 % Sodium Chloride 250 ML 265 MG IV (10:12)
--- NOTE | 2022-07-20 15:27 | MHC.CM.PN ---
PATIENT IS DC TO [facility]. RN AWARE OF PLANS (ARRANGED BY RECOVERY SUPPORT RN) PATIENT TO TRANSPORT VIA [facility]. HIS HEAD OF ETHICS AND COMPLIANCE'S OFFICE [employer]LE HYPERION CONSULTANT, DURAN WILSON ([phone]) WILL FOLLOW UP WITH HIM THERE. DURAN STATES THAT PATIENT IS HIGH ON THE LIST FOR [facility] [facility] AND NEEDS TO COMPLETE CSS PRIOR TO
--- NOTE | 2022-07-20 16:08 | MHC.RECOVRN ---
Pt dc to [facility] with plan to progress to [facility]. Transported via Ly.
== END 2022-07-20 15:56 | disposition home or self-care (01) | DRG 603 ==
LOC: HO.ED 14:32 → HO.EDOVER 14:37 → HO.S3 15:01
PROVIDERS: Physician Assistant; Admitting Provider Physician Assistant; Emergency Provider Emergency Medicine; Visit Provider Internal Medicine
DX: L03.116 Cellulitis of left lower limb (principal); F11.20 Opioid dependence, uncomplicated; I87.313 Chronic venous hypertension (idiopathic) with ulcer of bilateral lower extremity; L97.829 Non-pressure chronic ulcer of other part of left lower leg with unspecified severity; L97.811 Non-pressure chronic ulcer of other part of right lower leg limited to breakdown of skin; R01.1 Cardiac murmur, unspecified; D64.9 Anemia, unspecified; F32.A Depression, unspecified; L03.115 Cellulitis of right lower limb; K74.60 Unspecified cirrhosis of liver; Z86.16 Personal history of COVID-19; Z20.822 Contact with and (suspected) exposure to COVID-19; Z87.891 Personal history of nicotine dependence; Z86.19 Personal history of other infectious and parasitic diseases; Z79.899 Other long term (current) drug therapy
CPT/HCPCS: 36415; 73590; 80048; 80076; 80202; 80307; 82565; 83605; 83735; 83880; 85025; 85610; 85652; 86140; 87040; 87502; 87635; 93005; 93971; 99285; J1650; J2543; J3370

== ENCOUNTER 2022-08-14 09:51 | Emergency (ER) | payer MEDICARE, MEDICAID, SELFPAY ==
--- NOTE | ~2022-08-14 | CT_ITS ---
EXAM: CT scan of the chest, abdomen, and pelvis. INDICATION: Fall down stairs. Question rib fractures. COMPARISON: CT abdomen pelvis August 01, 2017 TECHNIQUE: Multidetector helical imaging of the chest, abdomen, and pelvis was obtained from the thoracic inlet through the pubic symphysis. Coronal and sagittal reformatted images that were obtained were also reviewed. DLP: 744 mGy-cm FINDINGS: CHEST: Central airways are patent. Lungs are well aerated. Subtle filling defects dependently within the trachea is nonspecific but statistically represent mucus. The lungs are adequately aerated. There is minimal dependent atelectasis. Mild biapical scarring. No lobar consolidation. No pleural effusion or pneumothorax. No suspicious pulmonary nodules. The heart is normal in size. Coronary artery calcifications are present. There is no pericardial effusion. Normal caliber thoracic aorta. No gross mediastinal or hilar lymphadenopathy. No pathologically enlarged axillary lymph nodes. Bilateral gynecomastia. ABDOMEN/PELVIS: The liver demonstrates diffusely decreased attenuation and a nodular contour suggesting cirrhotic changes. The gallbladder is normal in appearance. The pancreas is atrophic. The spleen is enlarged measuring 15 cm in maximum AP dimension. The adrenal glands are unremarkable. There is a single tiny nonobstructing calculi within each kidney. There is no hydronephrosis. Cannot exclude mild circumferential mucosal thickening of the distal esophagus. The stomach is decompressed and therefore not accurately evaluated. Normal caliber loops of small and large bowel. Moderate colonic stool burden. Normal caliber abdominal aorta demonstrating mild to moderate atherosclerotic disease. No retroperitoneal lymphadenopathy. The bladder is normal in appearance. The prostate gland is normal in size. There is no gross free pelvic fluid. No inguinal lymphadenopathy. OSSEOUS STRUCTURES Minimally displaced fractures of the right anterolateral fourth, fifth, sixth and seventh ribs. Mild to moderate degenerative changes of the spine. CT/CT abdomen pelvis wo IV con IMPRESSION: 1. Minimally displaced fractures of the right anterolateral fourth, fifth, sixth and seventh ribs. 2. Cirrhotic appearing liver with splenomegaly suggesting portal venous hypertension. 3. Tiny nonobstructing bilateral renal calculi. No hydronephrosis of either kidney. This CT examination was performed using dose optimization techniques as appropriate, variously including the following: *Automated exposure control *Adjustment of mA and/or kV according to patient size (this includes techniques or standardized protocols for targeted exams where dose is matched to indication/reason for exam; i.e. extremities or head) *Use of iterative reconstruction technique
--- NOTE | ~2022-08-14 | CT_ITS ---
EXAMINATION: CT CERVICAL SPINE WITHOUT CONTRAST; UNENHANCED CT OF THE HEAD. CLINICAL INFORMATION: Fall down stairs. COMPARISON: CT head 01/27/2022. CT cervical spine 01/27/2022 TECHNIQUE: Routine unenhanced CT of the head with multiple coronal and sagittal reformatted images; routine unenhanced CT of the cervical spine with multiple coronal and sagittal reformatted images. This CT examination was performed using dose optimization techniques as appropriate, variously including the following: *Automated exposure control *Adjustment of mA and/or kV according to patient size (this includes techniques or standardized protocols for targeted exams where dose is matched to indication/reason for exam; i.e. extremities or head) *Use of iterative reconstruction technique DLP: 1925 mGy-cm FINDINGS: CT head: No intracranial hemorrhage, tumors or acute infarcts are noted. Mild diffuse commensurate prominence of ventricles and sulci. Moderate segmental calcific atherosclerosis of the cavernous portions of the internal carotid arteries. A 6 mm diameter density with blood pool attenuation is present in the cistern for the lamina terminalis in the expected location of the anterior communicating artery (series 20 image 96, series 21 image 77). This finding may represent fortuitous visualization of the normal vasculature or a possible anterior communicating artery aneurysm. No significant opacification of the visualized paranasal sinuses, mastoid air cells and middle ear cavities. Incidental note made of a 7 mm rounded density within the right maxillary sinus likely representing a mucosal retention cyst. The orbits and globes are normal in appearance. CT cervical spine: No fractures or acute appearing subluxations identified. Grade 1 anterolisthesis of C3 on C4 is unchanged compared with 01/27/2022. Prominent erosive and hypertrophic facet arthropathy of the left C3-C4 facet joint is again noted. Marked intervertebral disc space narrowing is unchanged at C6-C7. No prevertebral fluid collections or soft tissue inflammatory changes identified. Moderate bilateral carotid bulb calcific atherosclerosis. CT/CT cervical spine wo IV con IMPRESSION: Unenhanced CT the head: *No acute intracranial abnormalities. No acute intracranial hemorrhage. 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 As clinically indicated, findings may be further evaluated with CT angiography or MR angiography of the head. (See saved mirza images; series 20 image 96, series 21 image 77). CT cervical spine: *No acute abnormalities. *Multilevel chronic spondylosis. This result with specific regards to a possible anterior communicating aneurysm was discussed with JESSICA Quinonez MD by telephone at 08/14/2022 12:58 PM and it was ascertained that the content and urgency of the report was understood at the time of direct communication.
--- NOTE | ~2022-08-14 | XR_ITS ---
EXAMINATION: XR TIBIA AND FIBULA, RIGHT CLINICAL INFORMATION: Chronic right leg wound COMPARISON: Radiographs right tibia/fibula July 18, 2022 TECHNIQUE: AP and lateral views of the right tibia and fibula were obtained. FINDINGS: No acute fracture or dislocation. Diffuse periosteal thickening again demonstrated. Mild soft tissue edema noted within the lower calf/visualized ankle. Mild vascular calcifications noted. Small posterior calcaneal enthesophyte. XR/XR tibia fibula RT 2V IMPRESSION: 1. No acute fracture or dislocation. 2. Diffuse periosteal thickening again demonstrated.
[2022-08-14 09:57] VITALS: BP 160/92; BP 169/73; PULSE 60; PULSE 81; RESP 16; TEMP 36.8; O2SAT 96; O2SAT 98; BMI 24.3
[2022-08-14 11:56] VITALS: BP 163/87; PULSE 54; RESP 16; TEMP 36.7; O2SAT 99
--- NOTE | 2022-08-14 12:54 | ED.GENADULT ---
HPI - General Adult General Chief complaint: General Medical Stated complaint: fall 2 weeks ago Time Seen by Provider: 08/14/22 10:01 Source: patient Mode of arrival: ambulatory Limitations: no limitations History of Present Illness HPI narrative: 66-year-old male on methadone for substance abuse and pmh of cirrhossis presents to the ED for right-sided after falling 2 weeks ago. Patient states he came to the ED to be evaluated he still having right-sided rib pain after fall. Patient admits to falling down the stairs Due to slipping.. patient would also like to have his right leg chronic wound to be evaluated. Related Data Home Medications Medication Instructions Recorded Confirmed methadone 10 mg/mL oral 45 mg PO DAILY 04/11/22 04/12/22 concentrate (Methadone Intensol) diphenhydramine HCl 25 mg capsule 2 cap PO BEDTIME 07/18/22 07/18/22 (Benadryl) fluoxetine 40 mg capsule 1 cap PO DAILY 07/18/22 07/18/22 prazosin 1 mg capsule 1 cap PO BEDTIME 07/18/22 07/18/22 Previous Rx's Medication Instructions Recorded walker (Ultra-Light Rollator misc) #1 ea 04/15/22 doxycycline hyclate 100 mg capsule 100 mg PO Q12H #14 caps 07/20/22 Allergies Allergy/AdvReac Type Severity Reaction Status Date / Time trazodone [TRAZODONE] Allergy Intermediate RESTLESS Verified 07/18/22 09:34 LEGS Review of Systems Review of Systems: Right-sided rib pain after falling down stairs. Evaluation of right leg wound. 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 Opiate dependence Opioid use disorder Physical deconditioning Polysubstance abuse Tobacco dependence Varicose veins of right lower extremity with inflammation Venous stasis ulcer Surgical History H/O hernia repair Family History Family History Mother CAD (coronary artery disease) ESRD (end stage renal disease) Brother Liver failure Social History Social History Household Members: Other Household Members Other:: Currently residing in a rehab facility Housing: Homeless Housing Other:: Currently residing in a rehab facility Do you presently have visiting nurse or other home services: Yes Unable to assess alcohol history related to: Unknown Alcohol intake: never Patient Tobacco Use Status: Former Tobacco user Tobacco use type: Cigarette Cigarettes Per Day: 2 Years Smoked: 40 e-Cigarette/Vaping Use: Never Used Second Hand Smoke Exposure: Yes Substance Use Type: Crack/Cocaine and Heroin Advance Directives: Yes Advance Directives on File: Yes Advance Directives Date on File: 02/11/21 service: No Current occupational status: disabled Physical Exam ED Vital Signs: Vital Signs - 24 hr 08/14/22 13:39 Temperature 98.3 F Pulse Rate 55 Respiratory Rate 14 Blood Pressure 166/81 H Pulse Oximetry 98 Oxygen Delivery Method Room Air BMI result Body Mass Index 24.3 Const General: cooperative, healthy appearing, comfortable, no acute distress, well developed, alert, awake and Physically active [facility] Head: Yes normal to inspection, Yes No palpable skull fracture present, Yes normocephalic, Yes atraumatic and No abrasion Eyes General: appearance normal, both eyes and all related structures Neck Neck: Yes normal visual inspection, Yes full ROM, Yes no lymphadenopathy, Yes no meningeal signs, Yes trachea midline, Yes supple, No anterior neck swelling and No tender Chest Chest palpation & inspection: normal inspection of the chest Chest/axillae images: 1. Tenderness on palpation. Negative for crepitus or ecchymosis. Resp Effort & Inspection: normal respiratory effort and able to speak in complete sentences Auscultation: clear to auscultation bilaterally Cardio Jugular venous distension: no JVD Heart sounds: S1 normal heart sound present and S2 normal heart sound present GI Inspection: Yes normal to inspection and No abdominal wall ecchymosis Palpation (GI): Soft to palpation, not firm, nontender, no guarding and not rigid General: No CVA tenderness and Yes no CVA tenderness Back/Spine/Pelvis Back: no CVA tenderness, No CVA tenderness and No back tenderness Skin Other: RLE: venous stasis changes General skin exam: no rashes or lesions noted and elasticity normal Neuro Other: Negative for any neuro deficits General: no meningeal signs Extrem Other: Right lower extremity; skin venous changes. wound looks healthy. General: Yes normal to inspection and Yes full ROM Psych Appearance: grossly normal, well kempt and not disheveled Course Course Course Narrative: will do trauma scan although patient fell 2 weeks ago down the stairs but due to significant tenderness of right lower ribs will order imaging. was sent for x-ray of leg return for osteomyelitis of the wound does not look infected. Negative foul odor or tenderness in the area. No medical evaluation needed. Mechanical fall. Reevaluation(s) Reevaluation #1: CT scan shows rib fractures present for [address] scan shows incidental aneurysm. Patient does not have any headache dizziness, or any neuro deficit. Case was discussed with radiologist ( Dr. Cerda) states this is chronic and could be followed up as outpatient. Spoke with [place] who agrees patient can be discahrged and followed up with outpatient. no need for admission or transfer refer fractures that are 2-week-old. Due to patient having aneurysm patient cannot be discharged any NSAIDs or aspirin. Patient informed to take any NSAIDs or aspirin. Due to methadone patient would not be discharged with narcotics. Reevaluation #2: Patient is cirrhotic cannot be given will discuss given patient tramadol although patient is on methadone. Will no longer give tylenol. Dr. Hermosillo agree with plan to give tramadol due to inability to use tylenol due to cirrhosis Reevaluation #3: Patient given copy of CAT scan results to follow up with the sting was surgery. No longer will give tramadol. Patient is already on methadone which in itself can be used for pain and is narcotic. Dr. Hermosillo agrees with plan. Patient given incentive spirometry to use every hour daily. Medical Decision Making Medical Decision Making [facility] Narrative: 66-year-old male history substance abuse presents to the ED for right lower rib pain after fall 2 weeks ago. patient came to the ED to be evaluated for that pain. Patient also wanted evaluation of right lower extremity wound. Right lower extremity wound healthy appearing and negative for signs of active infection on physical exam. x-ray negative for osteomyelitis. Venous ulcer. Differential Diagnosis Differential Diagnoses: The differential diagnosis associated with the presentation includes ( Rib fracture, brain bleed, abdominal organ injury.) Admission/Observation No admission needed. Lab Data No labs are indicated. Radiology Impression Discussion of test interpretation with radiology: I discussed test interpretation with the radiologist and I have reviewed the radiologist's reading. Radiologist Impression: Radiologist reading of head aneurysm was discussed and he states most likely aneurysm is chronic recommends outpatient follow-up with [facility]. Case was discussed with supervising attending Dr. Hermosillo who agrees patient could be discharged follow-up outpatient with surgery. Patient given information for [facility] for outpatient follow-up. Prescription Management I considered prescription management with: Pain Medication (not able to take NSAiDS, or asprin due to brain anerysm. not able to take tyelnol due to cirrhosis. Continue taking methadone) Chronic Conditions Patient?s care impacted by: Other ( Venous stasis ulcer.) Discharge Plan Discharge Clinical Impression: Fracture, ribs, Brain aneurysm, Venous stasis ulcer of ankle Patient Disposition: Home, Self-Care Instructions: Rib Fracture (ED), Nonruptured Cerebral Aneurysm (DC), Venous Insufficiency (DC) Additional Instructions: you have 3 rib fractures. Recommend using incentive spirometry every hour to prevent lung collapse and infection/pneumonia. CT scan showed brain aneurysm you will need follow-up with patient in a wrist surgery and should be referred by primary care provider. Right lower extremity wound will need to be followed with wound clinic. Continue taking methadone from the clinic which will help with pain. No other narcotics would be effective. Return to the ED immediately for leg swelling, calf pain, coughing up blood, discharge/foul odor from wound, abdominal pain, chest pain, shortness of breath, coughing up blood, headache, dizziness, any paralysis of extremities, or any other concerning symptoms. [facility] [address] [place] [address] [address] [place] [address] . use your incentive spirometry every hour every day Prescriptions: No Action fluoxetine 40 mg capsule 1 cap PO DAILY prazosin 1 mg capsule 1 cap PO BEDTIME diphenhydramine HCl [Benadryl] 25 mg capsule 2 cap PO BEDTIME doxycycline hyclate 100 mg capsule 100 mg PO Q12H Qty: 14 0RF methadone [Methadone Intensol] 10 mg/mL Concentrate 45 mg PO DAILY (DME) Ultra-Light [facility]ator [facility] See Rx Instructions .Route Qty: 1 0RF Rx Instructions: As directed Referrals: [facility] [Provider Group] ( right leg venous stasis ulcer) [place] [Primary Care Provider] - ( rib fractures, brain aneurysm, venous stasis ulcer) Interventions: ED Discharge Assessment Last Done: 08/14/22 17:16 Discharge Date/Time: 08/14/22 17:16 Print Language: Mohawk
[2022-08-14 13:39] VITALS: BP 166/81; PULSE 55; RESP 14; TEMP 36.8; O2SAT 98
--- NOTE | 2022-08-14 17:12 | PC.NURSE ---
pt difficult to d/c. wanted to stay in the hospital because he is homeless. t/w and sabi provider contacted CARE team for list of homeless shelters in the area. t/w changed pts socks and wrapped his wound to his leg. pt agreeable to d/c at this time.
== END 2022-08-14 17:16 | disposition home or self-care (01) ==
PROVIDERS: Emergency Provider Emergency Medicine Emergency Medical Services
DX: S22.41XA Multiple fractures of ribs, right side, initial encounter for closed fracture (principal); I67.1 Cerebral aneurysm, nonruptured; L97.319 Non-pressure chronic ulcer of right ankle with unspecified severity; R51.9 Headache, unspecified; M54.2 Cervicalgia; R10.2 Pelvic and perineal pain; X58.XXXA Exposure to other specified factors, initial encounter; Y93.9 Activity, unspecified; Y92.9 Unspecified place or not applicable; Y99.9 Unspecified external cause status; Z79.899 Other long term (current) drug therapy
CPT/HCPCS: 70450; 71250; 72125; 73590; 74176; 99283

== ENCOUNTER 2022-10-06 14:07 | Emergency (ER) | payer MEDICARE, MEDICAID, SELFPAY ==
[2022-10-06 14:16] VITALS: BP 133/77; PULSE 78; RESP 20; TEMP 37.3; O2SAT 96; BMI 26.6
--- NOTE | 2022-10-06 14:21 | ED_ITS ---
HPI - General Adult General Chief complaint: Skin/Abscess/Foreign Body <Jayant Acharya - Last Filed: 10/06/22 14:21> Stated complaint: R leg infection <Jayant Acharya - Last Filed: 10/06/22 14:21> Time Seen by Provider: 10/06/22 20:40 <Jayant Acharya - Last Filed: 10/06/22 14:21> Source: patient <Angeles Betancur MD - Last Filed: 10/06/22 21:06> Mode of arrival: ambulatory <Angeles Betancur MD - Last Filed: 10/06/22 21:06> Limitations: no limitations <Angeles Betancur MD - Last Filed: 10/06/22 21:06> History of Present Illness HPI narrative: Patient comes in the emergency room complaining of right leg infection. Patient states that he has not had any fever or chills. Patient has had multiple skin infections in the same leg. Patient reports that a few days ago he noticed that he had some broken skin around the ankle area and the heel area. patient denies any worsening swelling of his lower extremity, no calf pain. Pain is mostly in the anterior aspect of the right leg <Angeles Betancur MD - Last Filed: 10/06/22 21:06> Related Data Home medications: Home Medications Medication Instructions Recorded Confirmed methadone 10 mg/mL oral 45 mg PO DAILY 04/11/22 04/12/22 concentrate (Methadone Intensol) diphenhydramine HCl 25 mg capsule 2 cap PO BEDTIME 07/18/22 07/18/22 (Benadryl) fluoxetine 40 mg capsule 1 cap PO DAILY 07/18/22 07/18/22 prazosin 1 mg capsule 1 cap PO BEDTIME 07/18/22 07/18/22 Previous Rx's Medication Instructions Recorded walker (Ultra-Light Rollator misc) #1 ea 04/15/22 doxycycline hyclate 100 mg capsule 100 mg PO Q12H #14 caps 07/20/22 cephalexin 500 mg capsule 500 mg PO BID #14 caps 10/06/22 doxycycline hyclate 100 mg capsule 100 mg PO BID #14 caps 10/06/22 <Jayant Acharya - Last Filed: 10/06/22 14:21> Allergies/adverse reactions: Allergies Allergy/AdvReac Type Severity Reaction Status Date / Time trazodone [TRAZODONE] Allergy Intermediate RESTLESS Verified 07/18/22 09:34 LEGS <Jayant Acharya - Last Filed: 10/06/22 14:21> Review of Systems 2 Review of Systems: Constitutional : No Weight loss, No Fever, No Chills, No Night Sweats, No Fatigue, No Malaise ENT/Mouth : No Hearing loss, No Ear Pain, No Nasal Congestion, No Sinus Pain, No Hoarseness, No sore throat, No Rhinorrhea, No Swallowing Difficulty Eyes: No Eye Pain, No Swelling, No Redness, No Foreign Body, No Discharge, No Vision Changes Cardiovascular : No Chest Pain, No SOB, No Dyspnea on Exertion, No Orthopnea, No Edema, No Palpitations Respiratory : No Cough, No Sputum, No Wheezing, No Smoke Exposure, No Dyspnea Gastrointestinal : No Nausea, No Vomiting, No Diarrhea, No Constipation, No abdominal Pain, No Hematochezia, No Melena Genitourinary : no irregular bleeding, No Dysuria, No Urinary Frequency, No Hematuria, No Urinary Incontinence, No Urgency, No Flank Pain, No Urinary Flow Changes, No Hesitancy Musculoskeletal : No joint pain, No Myalgias, No Joint Swelling Skin : complaining erythema and pain in the frontal aspect of the distal right lower extremity and dorsum of foot Neuro : No Weakness, No Numbness, No Paresthesias, No Loss of Consciousness, No Dizziness, No Headache Psych : No Anxiety/Panic, No Depression, No SI/HI/AH/VH, No Social Issues, Heme/Lymph: No Bruising, No Bleeding,No Lymphadenopathy Endocrine : No Polyuria, No Polydipsia, No Temperature Intolerance <Angeles Betancur MD - Last Filed: 10/06/22 21:06> ON LICENSE OF [facility] Past Medical History Medical History: 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 Opiate dependence Opioid use disorder Physical deconditioning Polysubstance abuse Tobacco dependence Varicose veins of right lower extremity with inflammation Venous stasis ulcer <Jayant Achraya - Last Filed: 10/06/22 14:21> Surgical History: Surgical History H/O hernia repair <Jayant Acharya - Last Filed: 10/06/22 14:21> Family History Family History: Family History Mother CAD (coronary artery disease) ESRD (end stage renal disease) Brother Liver failure <Jayant Acharya - Last Filed: 10/06/22 14:21> Social History Social History: Social History Household Members: Other Household Members Other:: Currently residing in a rehab facility Housing: Homeless Housing Other:: Currently residing in a rehab facility Do you presently have visiting nurse or other home services: Yes Unable to assess alcohol history related to: Unknown Alcohol intake: never Patient Tobacco Use Status: Former Tobacco user Tobacco use type: Cigarette Cigarettes Per Day: 2 Years Smoked: 40 e-Cigarette/Vaping Use: Never Used Second Hand Smoke Exposure: Yes Substance Use Type: Crack/Cocaine and Heroin Advance Directives: Yes Advance Directives Information Provided: No Advance Directives on File: No Advance Directives Date on File: 02/11/21 service: No Current occupational status: disabled <Jayant Acharya - Last Filed: 10/06/22 14:21> Physical Exam ED Vital Signs: Vital Signs - 24 hr 10/06/22 14:16 10/06/22 20:25 Temperature 99.1 F 98.7 F Pulse Rate 78 74 Respiratory Rate 20 16 Blood Pressure 133/77 161/77 H Pulse Oximetry 96 96 Oxygen Delivery Method Room Air Room Air BMI result Body Mass Index 26.6 <Jayant Acharya - Last Filed: 10/06/22 14:21> Vital Signs - 24 hr 10/06/22 14:16 10/06/22 20:25 Temperature 99.1 F 98.7 F Pulse Rate 78 74 Respiratory Rate 20 16 Blood Pressure 133/77 161/77 H Pulse Oximetry 96 96 Oxygen Delivery Method Room Air Room Air BMI result Body Mass Index 26.6 <Angeles Beatncur MD - Last Filed: 10/06/22 21:06> Const Other: Appearance: Alert. Oriented X3. No acute distress. Eyes: Pupils equal, round and reactive to light. ENT: Pharynx normal. Neck: Normal inspection. Neck supple. No lymph nodes noted. No crepitus CVS: Normal heart rate and rhythm. Pulses normal. Normal S1 and S2 Respiratory: No respiratory distress. Breath sounds normal. No Wheezing. No rales Abdomen: Soft and nontender. No rigidity. No distention. Skin: Skin warm and dry. Normal skin color. Normal skin turgor. Extremities: patient has chronic venous stasis bilaterally, patient has and abrasion approximately 5 cm x 5 cm in the anterior aspect of the distal right lower extremity, no pus drainage, there is erythema from the dorsum of the foot to the ankle . no pain to palpation over the calf Neuro: Oriented X 3. No motor deficit. No sensory deficit. Moving all extremities. No slurred speech. CN 2 through 12 grossly intact Psych: calm, cooperative, normal affect <Angeles Betancur MD - Last Filed: 10/06/22 21:06> Course Course Course Narrative: 66-year-old male presents for evaluation of right leg infection. He reports a history of infections area years ago but has been better. He states 4 days ago his right leg has been swollen, red and warm to touch. He has an open wound in the right medial lower leg. Vital signs are stable, he is afebrile. Plan for labs including blood cultures <Jayant Acharya - Last Filed: 10/06/22 14:21> Medical Decision Making Medical Decision Making [facility] Narrative: - patient's white blood cell count, lactic acid within normal limits - no fever chills, normal blood pressure, normal vitals. Sepsis not suspected. - Patient has cellulitis. DVT is not suspected. - Wells criteria for DVT score is 0 - patient was given the 1st dose of antibiotics in the emergency room, doxycycline and Keflex. <Angeles Betancur MD - Last Filed: 10/06/22 21:06> Differential Diagnosis Differential Diagnoses: The differential diagnosis associated with the presentation includes ( cellulitis, chronic venous stasis, abrasion) <Angeles Betancur MD - Last Filed: 10/06/22 21:06> Lab Data [facility] Lab Attestation statement: I reviewed the patient's lab results. <Angeles Betancur MD - Last Filed: 10/06/22 21:06> Result Diagrams: 10/06/22 15:57 10/06/22 15:57 <Jayant Acharya - Last Filed: 10/06/22 14:21> Labs: Lab Results 10/06/22 10/06/22 10/06/22 Range/Units 15:57 15:57 15:57 WBC 7.4 (4.8-10.8) X10*3/uL RBC 3.72 L (4.60-5.80) X10*6/uL Hgb 10.5 L (14.0-18.0) g/dl Hct 32.6 L (42.0-52.0) % MCV 87.6 (80.0-98.0) fL MCH 28.2 (27.0-33.0) pg MCHC 32.2 (31.0-36.0) g/dl RDW 15.9 (11.0-16.0) % Plt Count 125 L (160-400) X10*3/uL MPV 11.0 (9.4-12.4) fL Immature Gran % (Auto) 0.4 (0.0-0.4) % Neut % (Auto) 55.5 (45-73) % Lymph % (Auto) 21.1 (20-40) % [place] % (Auto) 16.8 H (2-11) % Eos % (Auto) 5.7 H (0-4) % Baso % (Auto) 0.5 (0-2) % Lymph # (Auto) 1.6 (1.2-4.9) X10*3/uL [place] # (Auto) 1.3 H (0.1-1.2) X10*3/uL Eos # (Auto) 0.4 (0.0-0.4) X10*3/uL Baso # (Auto) 0.0 (0.0-0.2) X10*3/uL Abs Immat Gran (auto) 0.03 (0.00-0.03) X10*3/uL Absolute Neuts (auto) 4.1 (2.0-8.3) x10*3/uL Absolute Nucleated RBC 0.000 (0.0-0.012) X10*3/uL Nucleated RBC % (auto) 0.0 (0.0-0.2) /100WBC Sodium 138 (135-145) mmol/L Potassium 4.5 (3.3-5.1) mmol/L Chloride 105 (96-108) mmol/L Carbon Dioxide 27 (22-29) mmol/L Anion Gap 11 L (12-20) BUN 27 H (9-16) mg/dL Creatinine 0.86 (0.5-1.4) mg/dL Estim Creat Clear Calc 85.6 Estimated GFR > 60 Random Glucose 85 (60-115) mg/dL Lactic Acid 0.8 (0.5-2.0) mmol/L Calcium 8.8 (8.4-10.2) mg/dL Total Bilirubin 0.8 (0.0-1.0) mg/dL AST 50 H (5-37) U/L ALT 28 (0-40) U/L Alkaline Phosphatase 163 H (39-117) U/L Total Protein 7.5 (6.5-8.0) g/dL Albumin 3.3 L (3.5-5.0) g/dL <Jayant Acharya - Last Filed: 10/06/22 14:21> Lab Results 10/06/22 10/06/22 10/06/22 Range/Units 15:57 15:57 15:57 WBC 7.4 (4.8-10.8) X10*3/uL RBC 3.72 L (4.60-5.80) X10*6/uL Hgb 10.5 L (14.0-18.0) g/dl Hct 32.6 L (42.0-52.0) % MCV 87.6 (80.0-98.0) fL MCH 28.2 (27.0-33.0) pg MCHC 32.2 (31.0-36.0) g/dl RDW 15.9 (11.0-16.0) % Plt Count 125 L (160-400) X10*3/uL MPV 11.0 (9.4-12.4) fL Immature Gran % (Auto) 0.4 (0.0-0.4) % Neut % (Auto) 55.5 (45-73) % Lymph % (Auto) 21.1 (20-40) % [place] % (Auto) 16.8 H (2-11) % Eos % (Auto) 5.7 H (0-4) % Baso % (Auto) 0.5 (0-2) % Lymph # (Auto) 1.6 (1.2-4.9) X10*3/uL [place] # (Auto) 1.3 H (0.1-1.2) X10*3/uL Eos # (Auto) 0.4 (0.0-0.4) X10*3/uL Baso # (Auto) 0.0 (0.0-0.2) X10*3/uL Abs Immat Gran (auto) 0.03 (0.00-0.03) X10*3/uL Absolute Neuts (auto) 4.1 (2.0-8.3) x10*3/uL Absolute Nucleated RBC 0.000 (0.0-0.012) X10*3/uL Nucleated RBC % (auto) 0.0 (0.0-0.2) /100WBC Sodium 138 (135-145) mmol/L Potassium 4.5 (3.3-5.1) mmol/L Chloride 105 (96-108) mmol/L Carbon Dioxide 27 (22-29) mmol/L Anion Gap 11 L (12-20) BUN 27 H (9-16) mg/dL Creatinine 0.86 (0.5-1.4) mg/dL Estim Creat Clear Calc 85.6 Estimated GFR > 60 Random Glucose 85 (60-115) mg/dL Lactic Acid 0.8 (0.5-2.0) mmol/L Calcium 8.8 (8.4-10.2) mg/dL Total Bilirubin 0.8 (0.0-1.0) mg/dL AST 50 H (5-37) U/L ALT 28 (0-40) U/L Alkaline Phosphatase 163 H (39-117) U/L Total Protein 7.5 (6.5-8.0) g/dL Albumin 3.3 L (3.5-5.0) g/dL <Angeles Betancur MD - Last Filed: 10/06/22 21:06> Discharge Plan Discharge Clinical Impression: Cellulitis <Jayant Acharya - Last Filed: 10/06/22 14:21> Patient Disposition: Home, Self-Care <Jayant Acharya - Last Filed: 10/06/22 14:21> Instructions: Cellulitis (ED) <Jayant Acharya - Last Filed: 10/06/22 14:21> Additional Instructions: Please follow-up with your primary care physician tomorrow. If you have any worsening or new symptoms, please return to the emergency room or call 911 <Jayant Acharya - Last Filed: 10/06/22 14:21> Prescriptions: New cephalexin 500 mg capsule 500 mg PO BID Qty: 14 0RF doxycycline hyclate 100 mg capsule 100 mg PO BID Qty: 14 0RF No Action fluoxetine 40 mg capsule 1 cap PO DAILY prazosin 1 mg capsule 1 cap PO BEDTIME diphenhydramine HCl [Benadryl] 25 mg capsule 2 cap PO BEDTIME doxycycline hyclate 100 mg capsule 100 mg PO Q12H Qty: 14 0RF methadone [Methadone Intensol] 10 mg/mL Concentrate 45 mg PO DAILY (DME) Ultra-Light Rollator Misc See Rx Instructions .Route Qty: 1 0RF Rx Instructions: As directed <Jayant Acharya - Last Filed: 10/06/22 14:21>
[2022-10-06 16:02] LABS: MANUAL DIFF FLAG NO
[2022-10-06 16:04] LABS: Basophils Percent Auto 0.5 % (0-2); Eosinophils Absolute Auto 0.4 X10*3/uL (0.0-0.4); Eosinophils Percent Auto 5.7 % (0-4); Hematocrit 32.6 % (42.0-52.0); Hemoglobin 10.5 g/dl (14.0-18.0); Imm Gran Abs Auto 0.03 X10*3/uL (0.00-0.03); Imm Gran Pct Auto 0.4 % (0.0-0.4); Lymphocytes Absolute Auto 1.6 X10*3/uL (1.2-4.9); Lymphocytes Percent Auto 21.1 % (20-40); Mean Corpuscular HGB Conc 32.2 g/dl (31.0-36.0); Mean Corpuscular Hemoglobin 28.2 pg (27.0-33.0); Mean Corpuscular Volume 87.6 fL (80.0-98.0); Monocytes Absolute Auto 1.3 X10*3/uL (0.1-1.2); Monocytes Percent Auto 16.8 % (2-11); Neutrophils Absolute Auto 4.1 x10*3/uL (2.0-8.3); Neutrophils Percent Auto 55.5 % (45-73); Platelet Count 125 X10*3/uL (160-400); Red Blood Count 3.72 X10*6/uL (4.60-5.80); Red Cell Distribution Width 15.9 % (11.0-16.0); White Blood Count 7.4 X10*3/uL (4.8-10.8)
[2022-10-06 16:15] LABS: Lactic Acid 0.8 mmol/L (0.5-2.0)
[2022-10-06 16:30] LABS: Alanine Aminotransferase 28 U/L (0-40); Albumin Level 3.3 g/dL (3.5-5.0); Alkaline Phosphatase 163 U/L (39-117); Anion Gap 11 (12-20); Aspartate Amino Transferase 50 U/L (5-37); Bilirubin Total 0.8 mg/dL (0.0-1.0); Blood Urea Nitrogen 27 mg/dL (9-16); Calcium 8.8 mg/dL (8.4-10.2); Carbon Dioxide 27 mmol/L (22-29); Chloride 105 mmol/L (96-108); Creatinine Clr Calc Pharmacy 85.6; Estimated Glomerular Filt Rate > 60; Glucose Random 85 mg/dL (60-115); Potassium 4.5 mmol/L (3.3-5.1); Sodium 138 mmol/L (135-145); Total Protein 7.5 g/dL (6.5-8.0)
[2022-10-06 20:25] VITALS: BP 161/77; PULSE 74; RESP 16; TEMP 37.1; O2SAT 96
[2022-10-06] MEDS: Doxycycline Monohydrate 100 MG CAPSULE PO (21:24)
[2022-10-06] MEDS: cephALEXin 500 MG CAPSULE PO (21:24)
== END 2022-10-06 22:22 | disposition home or self-care (01) ==
PROVIDERS: Physician Assistant; Emergency Provider Emergency Medicine
DX: L03.115 Cellulitis of right lower limb (principal); Z79.899 Other long term (current) drug therapy; Z87.891 Personal history of nicotine dependence
CPT/HCPCS: 36415; 80053; 83605; 85025; 87040; 99282; 99283

== ENCOUNTER 2022-10-28 21:27 | Emergency (ER) | payer MEDICARE, MEDICAID, SELFPAY ==
[2022-10-28 21:40] VITALS: BP 120/46; BP 137/71; PULSE 100; PULSE 101; RESP 18; TEMP 36.4; O2SAT 97; O2SAT 998; BMI 28.8
[2022-10-28 21:43] VITALS: BP 141/59; PULSE 99; RESP 18; O2SAT 97
[2022-10-28 23:40] VITALS: BP 123/58; PULSE 80; RESP 17; TEMP 37.1; O2SAT 98
[2022-10-28 23:44] LABS: MANUAL DIFF FLAG NO
[2022-10-28 23:45] LABS: Basophils Absolute Auto 0.1 X10*3/uL (0.0-0.2); Basophils Percent Auto 0.6 % (0-2); Eosinophils Absolute Auto 0.3 X10*3/uL (0.0-0.4); Eosinophils Percent Auto 3.3 % (0-4); Hemoglobin 11.2 g/dl (14.0-18.0); Imm Gran Abs Auto 0.03 X10*3/uL (0.00-0.03); Imm Gran Pct Auto 0.4 % (0.0-0.4); Lymphocytes Absolute Auto 1.7 X10*3/uL (1.2-4.9); Lymphocytes Percent Auto 21.2 % (20-40); Mean Corpuscular HGB Conc 32.9 g/dl (31.0-36.0); Mean Corpuscular Hemoglobin 27.9 pg (27.0-33.0); Mean Corpuscular Volume 84.8 fL (80.0-98.0); Mean Platelet Volume 10.3 fL (9.4-12.4); Monocytes Absolute Auto 1.2 X10*3/uL (0.1-1.2); Monocytes Percent Auto 15.2 % (2-11); Neutrophils Absolute Auto 4.7 x10*3/uL (2.0-8.3); Neutrophils Percent Auto 59.3 % (45-73); Platelet Count 155 X10*3/uL (160-400); Red Blood Count 4.01 X10*6/uL (4.60-5.80); Red Cell Distribution Width 15.4 % (11.0-16.0); White Blood Count 7.9 X10*3/uL (4.8-10.8)
--- NOTE | 2022-10-28 23:48 | ED_ITS ---
HPI - General Adult General Chief complaint: General Medical Stated complaint: R leg pain/ infection Time Seen by Provider: 10/28/22 23:38 Source: patient Mode of arrival: EMS Limitations: no limitations History of Present Illness HPI narrative: Patient comes to the emergency room complaining of 5 days of right lower extremity redness and swelling. Patient states that his chronic wound on the distal lower extremity on the right side was doing well, 1 day when he woke up 5 days ago, patient noted that the wound had worsened. Patient complaining of serosanguineous drainage. Patient denies fever chills. Patient noted to have multiple bruises and the face. Patient states that about a week ago he fell and he was seen at other facility. Patient denies getting her in his lower extremity from that fall. Related Data Home Medications Medication Instructions Recorded Confirmed methadone 10 mg/mL oral 45 mg PO DAILY 04/11/22 04/12/22 concentrate (Methadone Intensol) diphenhydramine HCl 25 mg capsule 2 cap PO BEDTIME 07/18/22 07/18/22 (Benadryl) fluoxetine 40 mg capsule 1 cap PO DAILY 07/18/22 07/18/22 prazosin 1 mg capsule 1 cap PO BEDTIME 07/18/22 07/18/22 Previous Rx's Medication Instructions Recorded walker (Ultra-Light Rollator misc) #1 ea 04/15/22 doxycycline hyclate 100 mg capsule 100 mg PO Q12H #14 caps 07/20/22 cephalexin 500 mg capsule 500 mg PO BID #14 caps 10/06/22 doxycycline hyclate 100 mg capsule 100 mg PO BID #14 caps 10/06/22 cephalexin 500 mg capsule 500 mg PO Q12H #14 caps 10/29/22 doxycycline hyclate 100 mg capsule 100 mg PO BID #14 caps 10/29/22 Allergies Allergy/AdvReac Type Severity Reaction Status Date / Time trazodone [TRAZODONE] Allergy Intermediate RESTLESS Verified 07/18/22 09:34 LEGS Review of Systems Review of Systems: Constitutional : No Weight loss, No Fever, No Chills, No Night Sweats, No Fatigue, No Malaise ENT/Mouth : No Hearing loss, No Ear Pain, No Nasal Congestion, No Sinus Pain, No Hoarseness, No sore throat, No Rhinorrhea, No Swallowing Difficulty Eyes: No Eye Pain, No Swelling, No Redness, No Foreign Body, No Discharge, No Vision Changes Cardiovascular : No Chest Pain, No SOB, No Dyspnea on Exertion, No Orthopnea, No Edema, No Palpitations Respiratory : No Cough, No Sputum, No Wheezing, No Smoke Exposure, No Dyspnea Gastrointestinal : No Nausea, No Vomiting, No Diarrhea, No Constipation, No abdominal Pain, No Hematochezia, No Melena Genitourinary : no irregular bleeding, No Dysuria, No Urinary Frequency, No Hematuria, No Urinary Incontinence, No Urgency, No Flank Pain, No Urinary Flow Changes, No Hesitancy Musculoskeletal : No joint pain, No Myalgias, No Joint Swelling Skin : Complaining of chronic wound in the right lower extremity getting worse. 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 Opiate dependence Opioid use disorder Physical deconditioning Polysubstance abuse Tobacco dependence Varicose veins of right lower extremity with inflammation Venous stasis ulcer Surgical History H/O hernia repair Family History Family History Mother CAD (coronary artery disease) ESRD (end stage renal disease) Brother Liver failure Social History Social History Household Members: Other Household Members Other:: Currently residing in a rehab facility Housing: Homeless Housing Other:: Currently residing in a rehab facility Do you presently have visiting nurse or other home services: Yes Unable to assess alcohol history related to: Unknown Alcohol intake: never Patient Tobacco Use Status: Former Tobacco user Tobacco use type: Cigarette Cigarettes Per Day: 2 Years Smoked: 40 e-Cigarette/Vaping Use: Never Used Second Hand Smoke Exposure: Yes Substance Use Type: Crack/Cocaine and Heroin Advance Directives: Yes Advance Directives on File: Yes Advance Directives Date on File: 02/11/21 service: No Current occupational status: disabled Physical Exam ED Vital Signs: Vital Signs - 24 hr 10/28/22 21:40 10/28/22 21:43 10/28/22 23:40 Temperature 97.6 F 98.7 F Pulse Rate 101 H 99 80 Respiratory Rate 18 18 17 Blood Pressure 137/71 141/59 H 123/58 L Pulse Oximetry 97 97 98 Oxygen Delivery Method Room Air Room Air Room Air BMI result Body Mass Index 28.8 Const Other: Appearance: Alert. Oriented X3. No acute distress. Eyes: Pupils equal, round and reactive to light. ENT: Pharynx normal. Neck: Normal inspection. Neck supple. No lymph nodes noted. No crepitus CVS: Normal heart rate and rhythm. Pulses normal. Normal S1 and S2 Respiratory: No respiratory distress. Breath sounds normal. No Wheezing. No rales Abdomen: Soft and nontender. No rigidity. No distention. Skin: Skin warm and dry. Normal skin color. Normal skin turgor. Extremities: Chronic venous stasis bilaterally, right lower extremity is erythematous, has a chronic nonhealing wound. No discharge. Neuro: Oriented X 3. No motor deficit. No sensory deficit. Moving all extremities. No slurred speech. CN 2 through 12 grossly intact Psych: calm, cooperative, normal affect Course Course Course Narrative: -patient's labs pending -likely chronic changes. Medical Decision Making Medical Decision Making [facility] Narrative: Patient's white blood cell count within normal limits, lactic acid 0.9, normal blood pressure, no fever. -patient was given p.o. cephalexin and Keflex. Patient instructed to follow-up with the [facility]. Differential Diagnosis Differential Diagnoses: The differential diagnosis associated with the present ation includes (Cellulitis, nonhealing wound) Lab Data [facility] Lab Attestation statement: I reviewed the patient's lab results. 10/28/22 23:32 10/28/22 23:32 Labs: Lab Results 10/28/22 10/28/22 10/28/22 Range/Units 23:32 23:32 23:32 WBC 7.9 (4.8-10.8) X10*3/uL RBC 4.01 L (4.60-5.80) X10*6/uL Hgb 11.2 L (14.0-18.0) g/dl Hct 34.0 L (42.0-52.0) % MCV 84.8 (80.0-98.0) fL MCH 27.9 (27.0-33.0) pg MCHC 32.9 (31.0-36.0) g/dl RDW 15.4 (11.0-16.0) % Plt Count 155 L (160-400) X10*3/uL MPV 10.3 (9.4-12.4) fL Immature Gran % (Auto) 0.4 (0.0-0.4) % Neut % (Auto) 59.3 (45-73) % Lymph % (Auto) 21.2 (20-40) % [place] % (Auto) 15.2 H (2-11) % Eos % (Auto) 3.3 (0-4) % Baso % (Auto) 0.6 (0-2) % Lymph # (Auto) 1.7 (1.2-4.9) X10*3/uL [place] # (Auto) 1.2 (0.1-1.2) X10*3/uL Eos # (Auto) 0.3 (0.0-0.4) X10*3/uL Baso # (Auto) 0.1 (0.0-0.2) X10*3/uL Abs Immat Gran (auto) 0.03 (0.00-0.03) X10*3/uL Absolute Neuts (auto) 4.7 (2.0-8.3) x10*3/uL Absolute Nucleated RBC 0.000 (0.0-0.012) X10*3/uL Nucleated RBC % (auto) 0.0 (0.0-0.2) /100WBC ESR (0-15) MM/HR Sodium 137 (135-145) mmol/L Potassium 3.9 (3.3-5.1) mmol/L Chloride 105 (96-108) mmol/L Carbon Dioxide 22 (22-29) mmol/L Anion Gap 14 (12-20) BUN 26 H (9-16) mg/dL Creatinine 1.09 (0.5-1.4) mg/dL Estim Creat Clear Calc 74.3 Estimated GFR > 60 Random Glucose 80 (60-115) mg/dL Lactic Acid 0.9 (0.5-2.0) mmol/L Calcium 8.5 (8.4-10.2) mg/dL Total Bilirubin 1.8 H (0.0-1.0) mg/dL AST 111 H (5-37) U/L ALT 73 H (0-40) U/L Alkaline Phosphatase 91 (39-117) U/L C-Reactive Protein 2.11 H (< or = 0.50) mg/dL Total Protein 7.5 (6.5-8.0) g/dL Albumin 3.2 L (3.5-5.0) g/dL 10/28/22 Range/Units 23:32 WBC (4.8-10.8) X10*3/uL RBC (4.60-5.80) X10*6/uL Hgb (14.0-18.0) g/dl Hct (42.0-52.0) % MCV (80.0-98.0) fL MCH (27.0-33.0) pg MCHC (31.0-36.0) g/dl RDW (11.0-16.0) % Plt Count (160-400) X10*3/uL MPV (9.4-12.4) fL Immature Gran % (Auto) (0.0-0.4) % Neut % (Auto) (45-73) % Lymph % (Auto) (20-40) % [place] % (Auto) (2-11) % Eos % (Auto) (0-4) % Baso % (Auto) (0-2) % Lymph # (Auto) (1.2-4.9) X10*3/uL [place] # (Auto) (0.1-1.2) X10*3/uL Eos # (Auto) (0.0-0.4) X10*3/uL Baso # (Auto) (0.0-0.2) X10*3/uL Abs Immat Gran (auto) (0.00-0.03) X10*3/uL Absolute Neuts (auto) (2.0-8.3) x10*3/uL Absolute Nucleated RBC (0.0-0.012) X10*3/uL Nucleated RBC % (auto) (0.0-0.2) /100WBC ESR 33 H (0-15) MM/HR Sodium (135-145) mmol/L Potassium (3.3-5.1) mmol/L Chloride (96-108) mmol/L Carbon Dioxide (22-29) mmol/L Anion Gap (12-20) BUN (9-16) mg/dL Creatinine (0.5-1.4) mg/dL Estim Creat Clear Calc Estimated GFR Random Glucose (60-115) mg/dL Lactic Acid (0.5-2.0) mmol/L Calcium (8.4-10.2) mg/dL Total Bilirubin (0.0-1.0) mg/dL AST (5-37) U/L ALT (0-40) U/L Alkaline Phosphatase (39-117) U/L C-Reactive Protein (< or = 0.50) mg/dL Total Protein (6.5-8.0) g/dL Albumin (3.5-5.0) g/dL Discharge Plan Discharge Clinical Impression: Cellulitis Patient Disposition: Home, Self-Care Instructions: Cellulitis (ED) Additional Instructions: Please follow-up with your primary care physician tomorrow. If you have any worsening or new symptoms, please return to the emergency room or call 911 Prescriptions: New cephalexin 500 mg capsule 500 mg PO Q12H Qty: 14 0RF doxycycline hyclate 100 mg capsule 100 mg PO BID Qty: 14 0RF No Action fluoxetine 40 mg capsule 1 cap PO DAILY prazosin 1 mg capsule 1 cap PO BEDTIME diphenhydramine HCl [Benadryl] 25 mg capsule 2 cap PO BEDTIME doxycycline hyclate 100 mg capsule 100 mg PO Q12H Qty: 14 0RF cephalexin 500 mg capsule 500 mg PO BID Qty: 14 0RF doxycycline hyclate 100 mg capsule 100 mg PO BID Qty: 14 0RF methadone [Methadone Intensol] 10 mg/mL Concentrate 45 mg PO DAILY (DME) Ultra-Light Rollator Misc See Rx Instructions .Route Qty: 1 0RF Rx Instructions: As directed
[2022-10-28 23:57] LABS: Lactic Acid 0.9 mmol/L (0.5-2.0)
[2022-10-29 00:13] LABS: Alanine Aminotransferase 73 U/L (0-40); Albumin Level 3.2 g/dL (3.5-5.0); Alkaline Phosphatase 91 U/L (39-117); Anion Gap 14 (12-20); Aspartate Amino Transferase 111 U/L (5-37); Bilirubin Total 1.8 mg/dL (0.0-1.0); Blood Urea Nitrogen 26 mg/dL (9-16); C Reactive Protein 2.11 mg/dL (< or = 0.50); Calcium 8.5 mg/dL (8.4-10.2); Carbon Dioxide 22 mmol/L (22-29); Chloride 105 mmol/L (96-108); Creatinine Clr Calc Pharmacy 74.3; Estimated Glomerular Filt Rate > 60; Glucose Random 80 mg/dL (60-115); Potassium 3.9 mmol/L (3.3-5.1); Sodium 137 mmol/L (135-145); Total Protein 7.5 g/dL (6.5-8.0)
[2022-10-29 00:29] LABS: Erythrocyte Sedimentation Rate 33 MM/HR (0-15)
[2022-10-29] MEDS: Doxycycline Monohydrate 100 MG CAPSULE PO (01:49)
[2022-10-29] MEDS: cephALEXin 500 MG CAPSULE PO (01:49)
--- NOTE | 2022-10-29 01:50 | PC.NURSE ---
right leg wrapped with kerlix, tape applied.
[2022-10-29 01:55] VITALS: BP 152/89; PULSE 73; RESP 18; O2SAT 97
== END 2022-10-29 02:25 | disposition home or self-care (01) ==
PROVIDERS: Emergency Provider Emergency Medicine
DX: L03.115 Cellulitis of right lower limb (principal); Z79.899 Other long term (current) drug therapy; Z87.891 Personal history of nicotine dependence
CPT/HCPCS: 36415; 80053; 83605; 85025; 85652; 86140; 87040; 99283; 99284

== ENCOUNTER 2022-11-02 11:58 | Emergency (ER) | payer MEDICARE, MEDICAID, SELFPAY ==
[2022-11-02] VITALS (7 sets, daily range): BP systolic 99–145; BP diastolic 48–91; PULSE 66–83; RESP 16–19; TEMP 36.6–36.9; O2SAT 96–99; BMI 27.3
--- NOTE | ~2022-11-02 | XR_ITS ---
EXAMINATION: XR TIBIA AND FIBULA, RIGHT CLINICAL INFORMATION: Chronic wound. COMPARISON: Multiple priors, most recent right tibia and fibula radiographs dated 08/14/2022. TECHNIQUE: AP and lateral views of the right tibia and fibula were obtained. FINDINGS: Diffuse, circumferential subcutaneous edema/swelling. Chronic periosteal reaction within the distal fibula as well as the lateral aspect of the distal tibia appears unchanged. No new periosteal reaction or osseous erosion. No acute fracture or dislocation. No concerning lytic or blastic osseous lesion. No radiopaque foreign body. XR/XR tibia fibula RT 2V IMPRESSION: 1. Diffuse subcutaneous edema/swelling without acute osseous abnormality. 2. 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 No new periosteal reaction or osseous erosion.
--- NOTE | 2022-11-02 12:02 | ED_ITS ---
HPI - General Adult General Chief complaint: Wound/Laceration <JESSICA Sanchez - Last Filed: 11/02/22 12:10> Stated complaint: R leg/foot cellulitis re-eval per EMS <JESSICA Sanchez - Last Filed: 11/02/22 12:10> Time Seen by Provider: 11/02/22 15:03 <JESSICA Sanchez - Last Filed: 11/02/22 12:10> Source: patient <Jerrell Ardon MD - Last Filed: 11/02/22 16:59> Mode of arrival: EMS <Jerrell Ardon MD - Last Filed: 11/02/22 16:59> Limitations: no limitations <Jerrell Ardon MD - Last Filed: 11/02/22 16:59> History of Present Illness HPI narrative: 66 yo homeless male with history of polysubstance abuse, active IVDA, hepatitis C, liver cirrhosis, RLE cellulitis and venous stasis ulcers with multiple admissions for the same who presents to the ER via EMS c/o worsening right foot and leg swelling and redness. Has foul smelling drainage from chronic wound on distal right lower leg. Patient comes in today <Jerrell Ardon MD - Last Filed: 11/02/22 16:59> Onset (ago): month(s) <Jerrell Ardon MD - Last Filed: 11/02/22 16:59> Location: lower extremity <Jerrell Ardon MD - Last Filed: 11/02/22 16:59> Severity: mild <Jerrell Ardon MD - Last Filed: 11/02/22 16:59> Related Data Home medications: Home Medications Medication Instructions Recorded Confirmed methadone 10 mg/mL oral 45 mg PO DAILY 04/11/22 11/03/22 concentrate (Methadone Intensol) diphenhydramine HCl 25 mg capsule 2 cap PO BEDTIME 07/18/22 11/03/22 (Benadryl) fluoxetine 40 mg capsule 1 cap PO DAILY 07/18/22 11/03/22 prazosin 1 mg capsule 1 cap PO BEDTIME 07/18/22 11/03/22 Previous Rx's Medication Instructions Recorded walker (Ultra-Light Rollator misc) #1 ea 04/15/22 cephalexin 500 mg capsule 500 mg PO Q12H #14 caps 10/29/22 doxycycline hyclate 100 mg capsule 100 mg PO BID #14 caps 10/29/22 <JESSICA Sanchez - Last Filed: 11/02/22 12:10> Allergies/adverse reactions: Allergies Allergy/AdvReac Type Severity Reaction Status Date / Time trazodone [TRAZODONE] Allergy Intermediate RESTLESS Verified 07/18/22 09:34 LEGS <JESSICA Sanchez - Last Filed: 11/02/22 12:10> Review of Systems Review of Systems: Yes all other systems are reviewed and are negative <Jerrell Ardon MD - Last Filed: 11/02/22 16:59> Integumentary/Breasts: Comments: right lower extremity edema with chronic skin ulcers <Jerrell Ardon MD - Last Filed: 11/02/22 16:59> PMFSH Past Medical History Medical History: 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 Opiate dependence Opioid use disorder Physical deconditioning Polysubstance abuse Tobacco dependence Varicose veins of right lower extremity with inflammation Venous stasis ulcer <JESSICA Sanchez - Last Filed: 11/02/22 12:10> Surgical History: Surgical History H/O hernia repair <JESSICA Sanchez - Last Filed: 11/02/22 12:10> Family History Family History: Family History Mother CAD (coronary artery disease) ESRD (end stage renal disease) Brother Liver failure <JESSICA Sanchez - Last Filed: 11/02/22 12:10> Social History Social History: Social History Household Members: Other Household Members Other:: Currently residing in a rehab facility Housing: Homeless Housing Other:: Currently residing in a rehab facility Do you presently have visiting nurse or other home services: Yes Unable to assess alcohol history related to: Unknown Alcohol intake: unknown Patient Tobacco Use Status: Former Tobacco user Tobacco use type: Cigarette Cigarettes Per Day: 2 Years Smoked: 40 e-Cigarette/Vaping Use: Never Used Second Hand Smoke Exposure: Yes Use of substances other than those prescribed or required for medical reasons: Yes Substance Use Type: Heroin and Opiates Advance Directives: Yes Advance Directives on File: Yes Advance Directives Date on File: 02/11/21 service: No Current occupational status: disabled <JESSICA Sanchez - Last Filed: 11/02/22 12:10> Physical Exam ED Vital Signs: Vital Signs - 24 hr 11/05/22 14:00 11/05/22 22:01 11/06/22 05:20 Temperature 98.3 F 98.1 F 98 F Pulse Rate 74 68 67 Respiratory Rate 18 18 18 Blood Pressure 119/65 118/59 L 105/43 L Pulse Oximetry 96 98 96 Oxygen Delivery Method Room Air Room Air Room Air BMI result Body Mass Index 27.3 <JESSICA Sanchez - Last Filed: 11/02/22 12:10> Vital Signs - 24 hr 11/05/22 14:00 11/05/22 22:01 11/06/22 05:20 Temperature 98.3 F 98.1 F 98 F Pulse Rate 74 68 67 Respiratory Rate 18 18 18 Blood Pressure 119/65 118/59 L 105/43 L Pulse Oximetry 96 98 96 Oxygen Delivery Method Room Air Room Air Room Air BMI result Body Mass Index 27.3 <Jerrell Ardon MD - Last Filed: 11/02/22 16:59> Vital Signs - 24 hr 11/05/22 14:00 11/05/22 22:01 11/06/22 05:20 Temperature 98.3 F 98.1 F 98 F Pulse Rate 74 68 67 Respiratory Rate 18 18 18 Blood Pressure 119/65 118/59 L 105/43 L Pulse Oximetry 96 98 96 Oxygen Delivery Method Room Air Room Air Room Air BMI result Body Mass Index 27.3 <JESSICA Boogie - Last Filed: 11/04/22 17:49> Vital Signs - 24 hr 11/05/22 14:00 11/05/22 22:01 11/06/22 05:20 Temperature 98.3 F 98.1 F 98 F Pulse Rate 74 68 67 Respiratory Rate 18 18 18 Blood Pressure 119/65 118/59 L 105/43 L Pulse Oximetry 96 98 96 Oxygen Delivery Method Room Air Room Air Room Air BMI result Body Mass Index 27.3 <Shelly Brown NP - Last Filed: 11/06/22 08:54> Const Other: chronically ill male unkept <Jerrell Ardon MD - Last Filed: 11/02/22 16:59> Nutritional Appearance: average body habitus <Jerrell Ardon MD - Last Filed: 11/02/22 16:59> Orientation/consciousness: oriented to person and patient oriented x3 <Jerrell Ardon MD - Last Filed: 11/02/22 16:59> Limitations: no limitations <Jerrell Ardon MD - Last Filed: 11/02/22 16:59> HENMT Head: Yes normal to inspection <Jerrell Ardon MD - Last Filed: 11/02/22 16:59> Ears: external ears normal <Jerrell Ardon MD - Last Filed: 11/02/22 16:59> General nose exam: Normal external nose present <Jerrell Ardon MD - Last Filed: 11/02/22 16:59> Mouth: Normal oral and palatal mucosa present and oropharynx normal <Jerrell Ardon MD - Last Filed: 11/02/22 16:59> Throat: Yes posterior oropharynx normal <Jerrell Ardon MD - Last Filed: 11/02/22 16:59> Eyes General: appearance normal, both eyes and all related structures <Jerrell Ardon MD - Last Filed: 11/02/22 16:59> Neck Neck: Yes normal visual inspection <Jerrell Ardon MD - Last Filed: 11/02/22 16:59> Chest Chest palpation & inspection: normal inspection of the chest <Jerrell Ardon MD - Last Filed: 11/02/22 16:59> Resp Auscultation: clear to auscultation bilaterally <Jerrell Ardon MD - Last Filed: 11/02/22 16:59> Cardio Jugular venous distension: no JVD <Jerrell Ardon MD - Last Filed: 11/02/22 16:59> Rate: regular rate <Jerrell Ardon MD - Last Filed: 11/02/22 16:59> Rhythm: regular rhythm <Jerrell Ardon MD - Last Filed: 11/02/22 16:59> Heart sounds: S1 normal heart sound present and S2 normal heart sound present <Jerrell Ardon MD - Last Filed: 11/02/22 16:59> GI Inspection: Yes normal to inspection <Jerrell Ardon MD - Last Filed: 11/02/22 16:59> Palpation (GI): Soft to palpation, nontender and No hepatosplenomegaly present <Jerrell Ardon MD - Last Filed: 11/02/22 16:59> Auscultation: normal bowel sounds <Jerrell Ardon MD - Last Filed: 11/02/22 16:59> General: Yes no CVA tenderness <Jerrell Ardon MD - Last Filed: 11/02/22 16:59> Back/Spine/Pelvis Back: no CVA tenderness <Jerrell Ardon MD - Last Filed: 11/02/22 16:59> Skin Other: chronic leg edema with ulcerations, no pus <Jerrell Ardon MD - Last Filed: 11/02/22 16:59> Neuro General: oriented to person and patient oriented x3 <Jerrell Ardon MD - Last Filed: 11/02/22 16:59> Cranial nerves: Yes CN's II-XII intact bilaterally <Jerrell Ardon MD - Last Filed: 11/02/22 16:59> Motor exam (neuro): 5/5 motor strength present throughout <Jerrell Ardon MD - Last Filed: 11/02/22 16:59> Extrem Other: as above under skin, 3+ edema <Jerrell Ardon MD - Last Filed: 11/02/22 16:59> Psych Appearance: grossly normal <Jerrell Ardon MD - Last Filed: 11/02/22 16:59> Course Course Course Narrative: RME - 66 yo homeless male with history of polysubstance abuse, active IVDA, hepatitis C, liver cirrhosis, RLE cellulitis and venous stasis ulcers with multiple admissions for the same who presents to the ER via EMS c/o worsening right foot and leg swelling and redness. Has foul smelling drainage from chronic wound on distal right lower leg. VSS in triage Plan: labs, XR <JESSICA Sanchez - Last Filed: 11/02/22 12:10> Reevaluation(s) Reevaluation #1: patient does not appear infected will involve case management <Jerrell Ardon MD - Last Filed: 11/02/22 16:59> Time: 15:54 <Jerrell Ardon MD - Last Filed: 11/02/22 16:59> Reevaluation #2: physician observation: tyring to figure out safe discharge plan, leg is not infected <Jerrell Ardon MD - Last Filed: 11/02/22 16:59> Time: 16:52 <Jerrell Ardon MD - Last Filed: 11/02/22 16:59> Reevaluation #3: 11/04/22--1128--physician observation continued. Labs reviewed. Case management following for discharge needs <JESSICA Boogie - Last Filed: 11/04/22 17:49> Additional Reevaluation(s): 1615-no complaints from nursing overnight. Vital signs reviewed and stable. Will continue physician observation pending disposition 11/06 0850-no complaints from nursing overnight.? Vital signs reviewed and stable.? Will continue physician observation pending disposition? <Shelly Brown NP - Last Filed: 11/06/22 08:54> Medications Administered Generic Name Dose Route Start Last Admin Trade Name Freq PRN Reason Stop Dose Admin Ibuprofen 600 mg 11/03/22 19:34 11/03/22 19:48 Ibuprofen 600 Mg Tablet PO 600 mg Q6H PRN Administration Pain, Mild (Pain Scale 1-3) Methadone HCl 30 mg 11/04/22 12:55 11/06/22 08:48 Methadone Hcl 20 Mg/2 Ml Oral.Conc PO 30 mg DAILY DAVID Administration Discontinued Medications Generic Name Dose Route Start Last Admin Trade Name Freq PRN Reason Stop Dose Admin Methadone HCl 10 mg 11/02/22 17:00 11/02/22 16:59 Methadone Hcl 20 Mg/2 Ml Oral.Conc PO 11/02/22 17:01 10 mg ONCE ONE Administration Methadone HCl 10 mg 11/03/22 16:51 11/03/22 18:02 Methadone Hcl 10 Mg Tablet PO 11/03/22 16:52 Not Given ONCE ONE Methadone HCl 10 mg 11/03/22 18:00 11/03/22 18:02 Methadone Hcl 20 Mg/2 Ml Oral.Conc PO 11/03/22 18:01 10 mg ONCE ONE Administration Methadone HCl 20 mg 11/03/22 21:00 11/03/22 21:03 Methadone Hcl 20 Mg/2 Ml Oral.Conc PO 11/03/22 21:01 20 mg ONCE ONE Administration <JESSICA Sanchez - Last Filed: 11/02/22 12:10> Medications Administered Generic Name Dose Route Start Last Admin Trade Name Freq PRN Reason Stop Dose Admin Ibuprofen 600 mg 11/03/22 19:34 11/03/22 19:48 Ibuprofen 600 Mg Tablet PO 600 mg Q6H PRN Administration Pain, Mild (Pain Scale 1-3) Methadone HCl 30 mg 11/04/22 12:55 11/06/22 08:48 Methadone Hcl 20 Mg/2 Ml Oral.Conc PO 30 mg DAILY DAVID Administration Discontinued Medications Generic Name Dose Route Start Last Admin Trade Name Freq PRN Reason Stop Dose Admin Methadone HCl 10 mg 11/02/22 17:00 11/02/22 16:59 Methadone Hcl 20 Mg/2 Ml Oral.Conc PO 11/02/22 17:01 10 mg ONCE ONE Administration Methadone HCl 10 mg 11/03/22 16:51 11/03/22 18:02 Methadone Hcl 10 Mg Tablet PO 11/03/22 16:52 Not Given ONCE ONE Methadone HCl 10 mg 11/03/22 18:00 11/03/22 18:02 Methadone Hcl 20 Mg/2 Ml Oral.Conc PO 11/03/22 18:01 10 mg ONCE ONE Administration Methadone HCl 20 mg 11/03/22 21:00 11/03/22 21:03 Methadone Hcl 20 Mg/2 Ml Oral.Conc PO 11/03/22 21:01 20 mg ONCE ONE Administration <Jerrell Ardon MD - Last Filed: 11/02/22 16:59> Medications Administered Generic Name Dose Route Start Last Admin Trade Name Freq PRN Reason Stop Dose Admin Ibuprofen 600 mg 11/03/22 19:34 11/03/22 19:48 Ibuprofen 600 Mg Tablet PO 600 mg Q6H PRN Administration Pain, Mild (Pain Scale 1-3) Methadone HCl 30 mg 11/04/22 12:55 11/06/22 08:48 Methadone Hcl 20 Mg/2 Ml Oral.Conc PO 30 mg DAILY DAVID Administration Discontinued Medications Generic Name Dose Route Start Last Admin Trade Name Freq PRN Reason Stop Dose Admin Methadone HCl 10 mg 11/02/22 17:00 11/02/22 16:59 Methadone Hcl 20 Mg/2 Ml Oral.Conc PO 11/02/22 17:01 10 mg ONCE ONE Administration Methadone HCl 10 mg 11/03/22 16:51 11/03/22 18:02 Methadone Hcl 10 Mg Tablet PO 11/03/22 16:52 Not Given ONCE ONE Methadone HCl 10 mg 11/03/22 18:00 11/03/22 18:02 Methadone Hcl 20 Mg/2 Ml Oral.Conc PO 11/03/22 18:01 10 mg ONCE ONE Administration Methadone HCl 20 mg 11/03/22 21:00 11/03/22 21:03 Methadone Hcl 20 Mg/2 Ml Oral.Conc PO 11/03/22 21:01 20 mg ONCE ONE Administration <JESSICA Boogie - Last Filed: 11/04/22 17:49> Medications Administered Generic Name Dose Route Start Last Admin Trade Name Freq PRN Reason Stop Dose Admin Ibuprofen 600 mg 11/03/22 19:34 11/03/22 19:48 Ibuprofen 600 Mg Tablet PO 600 mg Q6H PRN Administration Pain, Mild (Pain Scale 1-3) Methadone HCl 30 mg 11/04/22 12:55 11/06/22 08:48 Methadone Hcl 20 Mg/2 Ml Oral.Conc PO 30 mg DAILY DAVID Administration Discontinued Medications Generic Name Dose Route Start Last Admin Trade Name Freq PRN Reason Stop Dose Admin Methadone HCl 10 mg 11/02/22 17:00 11/02/22 16:59 Methadone Hcl 20 Mg/2 Ml Oral.Conc PO 11/02/22 17:01 10 mg ONCE ONE Administration Methadone HCl 10 mg 11/03/22 16:51 11/03/22 18:02 Methadone Hcl 10 Mg Tablet PO 11/03/22 16:52 Not Given ONCE ONE Methadone HCl 10 mg 11/03/22 18:00 11/03/22 18:02 Methadone Hcl 20 Mg/2 Ml Oral.Conc PO 11/03/22 18:01 10 mg ONCE ONE Administration Methadone HCl 20 mg 11/03/22 21:00 11/03/22 21:03 Methadone Hcl 20 Mg/2 Ml Oral.Conc PO 11/03/22 21:01 20 mg ONCE ONE Administration <Shelly Brown NP - Last Filed: 11/06/22 08:54> Medical Decision Making Differential Diagnosis Differential Diagnoses: The differential diagnosis associated with the presentation includes (cellulitis, osteomyelitis, edema, polysubstance abuse) <Jerrell Ardon MD - Last Filed: 11/02/22 16:59> Consult Healthcare Provider Management of the patient was discussed with: Implant Coordinator (physical therapy, case management) <Jerrell Ardon MD - Last Filed: 11/02/22 16:59> Lab Data MDM Lab Attestation statement: I reviewed the patient's lab results. <Jerrell Ardon MD - Last Filed: 11/02/22 16:59> Result Diagrams: 11/02/22 12:17 11/02/22 12:17 <JESSICA Sanchez - Last Filed: 11/02/22 12:10> Labs: Lab Results 11/02/22 11/02/22 11/02/22 Range/Units 12:17 12:17 12:17 WBC 6.0 (4.8-10.8) X10*3/uL RBC 4.18 L (4.60-5.80) X10*6/uL Hgb 11.5 L (14.0-18.0) g/dl Hct 35.2 L (42.0-52.0) % MCV 84.2 (80.0-98.0) fL MCH 27.5 (27.0-33.0) pg MCHC 32.7 (31.0-36.0) g/dl RDW 15.4 (11.0-16.0) % Plt Count 128 L (160-400) X10*3/uL MPV 9.7 (9.4-12.4) fL Immature Gran % (Auto) 0.3 (0.0-0.4) % Neut % (Auto) 62.5 (45-73) % Lymph % (Auto) 16.8 L (20-40) % [place] % (Auto) 12.1 H (2-11) % Eos % (Auto) 7.8 H (0-4) % Baso % (Auto) 0.5 (0-2) % Lymph # (Auto) 1.0 L (1.2-4.9) X10*3/uL [place] # (Auto) 0.7 (0.1-1.2) X10*3/uL Eos # (Auto) 0.5 H (0.0-0.4) X10*3/uL Baso # (Auto) 0.0 (0.0-0.2) X10*3/uL Abs Immat Gran (auto) 0.02 (0.00-0.03) X10*3/uL Absolute Neuts (auto) 3.8 (2.0-8.3) x10*3/uL Absolute Nucleated RBC 0.000 (0.0-0.012) X10*3/uL Nucleated RBC % (auto) 0.0 (0.0-0.2) /100WBC ESR 28 H (0-15) MM/HR Sodium 142 (135-145) mmol/L Potassium 3.6 (3.3-5.1) mmol/L Chloride 110 H (96-108) mmol/L Carbon Dioxide 26 (22-29) mmol/L Anion Gap 10 L (12-20) BUN 21 H (9-16) mg/dL Creatinine 0.89 (0.5-1.4) mg/dL Estim Creat Clear Calc 82.7 Estimated GFR > 60 Random Glucose 129 H (60-115) mg/dL Lactic Acid (0.5-2.0) mmol/L Calcium 8.4 (8.4-10.2) mg/dL Magnesium 1.8 (1.6-2.6) mg/dL Total Bilirubin 1.3 H (0.0-1.0) mg/dL Direct Bilirubin 0.5 (0.0-0.5) mg/dL AST 60 H (5-37) U/L ALT 49 H (0-40) U/L Alkaline Phosphatase 120 H (39-117) U/L C-Reactive Protein 1.25 H (< or = 0.50) mg/dL Total Protein 6.9 (6.5-8.0) g/dL Albumin 2.9 L (3.5-5.0) g/dL Urine Color Urine Appearance Urine pH (5.0-9.0) Ur Specific [place] (1.005-1.025) Urine Protein (Neg-Trace) mg/dL Urine Glucose (UA) (Negative) mg/dL Urine Ketones (Negative) mg/dL Urine Blood (Negative) Urine Nitrite (Negative) Ur Leukocyte Esterase (Negative) Urine RBC (0-2) /HPF Urine WBC (0-5) /HPF Ur Squamous Epith Cells (0-2) /HPF Urine Bacteria (None Seen) Hyaline Casts (0-2) /LPF COVID-19 (JACQUE) (Negative) COVID-19 Clin Com 11/02/22 11/02/22 11/02/22 Range/Units 12:17 12:17 18:15 WBC (4.8-10.8) X10*3/uL RBC (4.60-5.80) X10*6/uL Hgb (14.0-18.0) g/dl Hct (42.0-52.0) % MCV (80.0-98.0) fL MCH (27.0-33.0) pg MCHC (31.0-36.0) g/dl RDW (11.0-16.0) % Plt Count (160-400) X10*3/uL MPV (9.4-12.4) fL Immature Gran % (Auto) (0.0-0.4) % Neut % (Auto) (45-73) % Lymph % (Auto) (20-40) % [place] % (Auto) (2-11) % Eos % (Auto) (0-4) % Baso % (Auto) (0-2) % Lymph # (Auto) (1.2-4.9) X10*3/uL [place] # (Auto) (0.1-1.2) X10*3/uL Eos # (Auto) (0.0-0.4) X10*3/uL Baso # (Auto) (0.0-0.2) X10*3/uL Abs Immat Gran (auto) (0.00-0.03) X10*3/uL Absolute Neuts (auto) (2.0-8.3) x10*3/uL Absolute Nucleated RBC (0.0-0.012) X10*3/uL Nucleated RBC % (auto) (0.0-0.2) /100WBC ESR (0-15) MM/HR Sodium (135-145) mmol/L Potassium (3.3-5.1) mmol/L Chloride (96-108) mmol/L Carbon Dioxide (22-29) mmol/L Anion Gap (12-20) BUN (9-16) mg/dL Creatinine (0.5-1.4) mg/dL Estim Creat Clear Calc Estimated GFR Random Glucose (60-115) mg/dL Lactic Acid 1.9 (0.5-2.0) mmol/L Calcium (8.4-10.2) mg/dL Magnesium (1.6-2.6) mg/dL Total Bilirubin (0.0-1.0) mg/dL Direct Bilirubin (0.0-0.5) mg/dL AST (5-37) U/L ALT (0-40) U/L Alkaline Phosphatase (39-117) U/L C-Reactive Protein (< or = 0.50) mg/dL Total Protein (6.5-8.0) g/dL Albumin (3.5-5.0) g/dL Urine Color Dark Yellow Urine Appearance Clear Urine pH 6.0 (5.0-9.0) Ur Specific [place] 1.025 (1.005-1.025) Urine Protein Trace (Neg-Trace) mg/dL Urine Glucose (UA) Negative (Negative) mg/dL Urine Ketones Trace (Negative) mg/dL Urine Blood Negative (Negative) Urine Nitrite Negative (Negative) Ur Leukocyte Esterase Trace H (Negative) Urine RBC 3-5 H (0-2) /HPF Urine WBC 0-5 (0-5) /HPF Ur Squamous Epith Cells 0-2 (0-2) /HPF Urine Bacteria Trace (None Seen) Hyaline Casts 0-2 (0-2) /LPF COVID-19 (JACQUE) Negative (Negative) COVID-19 Clin Com See Note <JESSICA Sanchez - Last Filed: 11/02/22 12:10> Lab Results 11/02/22 11/02/22 11/02/22 Range/Units 12:17 12:17 12:17 WBC 6.0 (4.8-10.8) X10*3/uL RBC 4.18 L (4.60-5.80) X10*6/uL Hgb 11.5 L (14.0-18.0) g/dl Hct 35.2 L (42.0-52.0) % MCV 84.2 (80.0-98.0) fL MCH 27.5 (27.0-33.0) pg MCHC 32.7 (31.0-36.0) g/dl RDW 15.4 (11.0-16.0) % Plt Count 128 L (160-400) X10*3/uL MPV 9.7 (9.4-12.4) fL Immature Gran % (Auto) 0.3 (0.0-0.4) % Neut % (Auto) 62.5 (45-73) % Lymph % (Auto) 16.8 L (20-40) % [place] % (Auto) 12.1 H (2-11) % Eos % (Auto) 7.8 H (0-4) % Baso % (Auto) 0.5 (0-2) % Lymph # (Auto) 1.0 L (1.2-4.9) X10*3/uL [place] # (Auto) 0.7 (0.1-1.2) X10*3/uL Eos # (Auto) 0.5 H (0.0-0.4) X10*3/uL Baso # (Auto) 0.0 (0.0-0.2) X10*3/uL Abs Immat Gran (auto) 0.02 (0.00-0.03) X10*3/uL Absolute Neuts (auto) 3.8 (2.0-8.3) x10*3/uL Absolute Nucleated RBC 0.000 (0.0-0.012) X10*3/uL Nucleated RBC % (auto) 0.0 (0.0-0.2) /100WBC ESR 28 H (0-15) MM/HR Sodium 142 (135-145) mmol/L Potassium 3.6 (3.3-5.1) mmol/L Chloride 110 H (96-108) mmol/L Carbon Dioxide 26 (22-29) mmol/L Anion Gap 10 L (12-20) BUN 21 H (9-16) mg/dL Creatinine 0.89 (0.5-1.4) mg/dL Estim Creat Clear Calc 82.7 Estimated GFR > 60 Random Glucose 129 H (60-115) mg/dL Lactic Acid (0.5-2.0) mmol/L Calcium 8.4 (8.4-10.2) mg/dL Magnesium 1.8 (1.6-2.6) mg/dL Total Bilirubin 1.3 H (0.0-1.0) mg/dL Direct Bilirubin 0.5 (0.0-0.5) mg/dL AST 60 H (5-37) U/L ALT 49 H (0-40) U/L Alkaline Phosphatase 120 H (39-117) U/L C-Reactive Protein 1.25 H (< or = 0.50) mg/dL Total Protein 6.9 (6.5-8.0) g/dL Albumin 2.9 L (3.5-5.0) g/dL Urine Color Urine Appearance Urine pH (5.0-9.0) Ur Specific [place] (1.005-1.025) Urine Protein (Neg-Trace) mg/dL Urine Glucose (UA) (Negative) mg/dL Urine Ketones (Negative) mg/dL Urine Blood (Negative) Urine Nitrite (Negative) Ur Leukocyte Esterase (Negative) Urine RBC (0-2) /HPF Urine WBC (0-5) /HPF Ur Squamous Epith Cells (0-2) /HPF Urine Bacteria (None Seen) Hyaline Casts (0-2) /LPF COVID-19 (JACQUE) (Negative) COVID-19 Clin Com 11/02/22 11/02/22 11/02/22 Range/Units 12:17 12:17 18:15 WBC (4.8-10.8) X10*3/uL RBC (4.60-5.80) X10*6/uL Hgb (14.0-18.0) g/dl Hct (42.0-52.0) % MCV (80.0-98.0) fL MCH (27.0-33.0) pg MCHC (31.0-36.0) g/dl RDW (11.0-16.0) % Plt Count (160-400) X10*3/uL MPV (9.4-12.4) fL Immature Gran % (Auto) (0.0-0.4) % Neut % (Auto) (45-73) % Lymph % (Auto) (20-40) % [place] % (Auto) (2-11) % Eos % (Auto) (0-4) % Baso % (Auto) (0-2) % Lymph # (Auto) (1.2-4.9) X10*3/uL [place] # (Auto) (0.1-1.2) X10*3/uL Eos # (Auto) (0.0-0.4) X10*3/uL Baso # (Auto) (0.0-0.2) X10*3/uL Abs Immat Gran (auto) (0.00-0.03) X10*3/uL Absolute Neuts (auto) (2.0-8.3) x10*3/uL Absolute Nucleated RBC (0.0-0.012) X10*3/uL Nucleated RBC % (auto) (0.0-0.2) /100WBC ESR (0-15) MM/HR Sodium (135-145) mmol/L Potassium (3.3-5.1) mmol/L Chloride (96-108) mmol/L Carbon Dioxide (22-29) mmol/L Anion Gap (12-20) BUN (9-16) mg/dL Creatinine (0.5-1.4) mg/dL Estim Creat Clear Calc Estimated GFR Random Glucose (60-115) mg/dL Lactic Acid 1.9 (0.5-2.0) mmol/L Calcium (8.4-10.2) mg/dL Magnesium (1.6-2.6) mg/dL Total Bilirubin (0.0-1.0) mg/dL Direct Bilirubin (0.0-0.5) mg/dL AST (5-37) U/L ALT (0-40) U/L Alkaline Phosphatase (39-117) U/L C-Reactive Protein (< or = 0.50) mg/dL Total Protein (6.5-8.0) g/dL Albumin (3.5-5.0) g/dL Urine Color Dark Yellow Urine Appearance Clear Urine pH 6.0 (5.0-9.0) Ur Specific [place] 1.025 (1.005-1.025) Urine Protein Trace (Neg-Trace) mg/dL Urine Glucose (UA) Negative (Negative) mg/dL Urine Ketones Trace (Negative) mg/dL Urine Blood Negative (Negative) Urine Nitrite Negative (Negative) Ur Leukocyte Esterase Trace H (Negative) Urine RBC 3-5 H (0-2) /HPF Urine WBC 0-5 (0-5) /HPF Ur Squamous Epith Cells 0-2 (0-2) /HPF Urine Bacteria Trace (None Seen) Hyaline Casts 0-2 (0-2) /LPF COVID-19 ([facility]AC[facility]) Negative (Negative) COVID-19 Clin Com See Note <Jerrell Ardon MD - Last Filed: 11/02/22 16:59> Lab Results 11/02/22 11/02/22 11/02/22 Range/Units 12:17 12:17 12:17 WBC 6.0 (4.8-10.8) X10*3/uL RBC 4.18 L (4.60-5.80) X10*6/uL Hgb 11.5 L (14.0-18.0) g/dl Hct 35.2 L (42.0-52.0) % MCV 84.2 (80.0-98.0) fL MCH 27.5 (27.0-33.0) pg MCHC 32.7 (31.0-36.0) g/dl RDW 15.4 (11.0-16.0) % Plt Count 128 L (160-400) X10*3/uL MPV 9.7 (9.4-12.4) fL Immature Gran % (Auto) 0.3 (0.0-0.4) % Neut % (Auto) 62.5 (45-73) % Lymph % (Auto) 16.8 L (20-40) % [place] % (Auto) 12.1 H (2-11) % Eos % (Auto) 7.8 H (0-4) % Baso % (Auto) 0.5 (0-2) % Lymph # (Auto) 1.0 L (1.2-4.9) X10*3/uL [place] # (Auto) 0.7 (0.1-1.2) X10*3/uL Eos # (Auto) 0.5 H (0.0-0.4) X10*3/uL Baso # (Auto) 0.0 (0.0-0.2) X10*3/uL Abs Immat Gran (auto) 0.02 (0.00-0.03) X10*3/uL Absolute Neuts (auto) 3.8 (2.0-8.3) x10*3/uL Absolute Nucleated RBC 0.000 (0.0-0.012) X10*3/uL Nucleated RBC % (auto) 0.0 (0.0-0.2) /100WBC ESR 28 H (0-15) MM/HR Sodium 142 (135-145) mmol/L Potassium 3.6 (3.3-5.1) mmol/L Chloride 110 H (96-108) mmol/L Carbon Dioxide 26 (22-29) mmol/L Anion Gap 10 L (12-20) BUN 21 H (9-16) mg/dL Creatinine 0.89 (0.5-1.4) mg/dL Estim Creat Clear Calc 82.7 Estimated GFR > 60 Random Glucose 129 H (60-115) mg/dL Lactic Acid (0.5-2.0) mmol/L Calcium 8.4 (8.4-10.2) mg/dL Magnesium 1.8 (1.6-2.6) mg/dL Total Bilirubin 1.3 H (0.0-1.0) mg/dL Direct Bilirubin 0.5 (0.0-0.5) mg/dL AST 60 H (5-37) U/L ALT 49 H (0-40) U/L Alkaline Phosphatase 120 H (39-117) U/L C-Reactive Protein 1.25 H (< or = 0.50) mg/dL Total Protein 6.9 (6.5-8.0) g/dL Albumin 2.9 L (3.5-5.0) g/dL Urine Color Urine Appearance Urine pH (5.0-9.0) Ur Specific [place] (1.005-1.025) Urine Protein (Neg-Trace) mg/dL Urine Glucose (UA) (Negative) mg/dL Urine Ketones (Negative) mg/dL Urine Blood (Negative) Urine Nitrite (Negative) Ur Leukocyte Esterase (Negative) Urine RBC (0-2) /HPF Urine WBC (0-5) /HPF Ur Squamous Epith Cells (0-2) /HPF Urine Bacteria (None Seen) Hyaline Casts (0-2) /LPF COVID-19 ([facility]) (Negative) COVID-19 Clin Com 11/02/22 11/02/22 11/02/22 Range/Units 12:17 12:17 18:15 WBC (4.8-10.8) X10*3/uL RBC (4.60-5.80) X10*6/uL Hgb (14.0-18.0) g/dl Hct (42.0-52.0) % MCV (80.0-98.0) fL MCH (27.0-33.0) pg MCHC (31.0-36.0) g/dl RDW (11.0-16.0) % Plt Count (160-400) X10*3/uL MPV (9.4-12.4) fL Immature Gran % (Auto) (0.0-0.4) % Neut % (Auto) (45-73) % Lymph % (Auto) (20-40) % [place] % (Auto) (2-11) % Eos % (Auto) (0-4) % Baso % (Auto) (0-2) % Lymph # (Auto) (1.2-4.9) X10*3/uL [place] # (Auto) (0.1-1.2) X10*3/uL Eos # (Auto) (0.0-0.4) X10*3/uL Baso # (Auto) (0.0-0.2) X10*3/uL Abs Immat Gran (auto) (0.00-0.03) X10*3/uL Absolute Neuts (auto) (2.0-8.3) x10*3/uL Absolute Nucleated RBC (0.0-0.012) X10*3/uL Nucleated RBC % (auto) (0.0-0.2) /100WBC ESR (0-15) MM/HR Sodium (135-145) mmol/L Potassium (3.3-5.1) mmol/L Chloride (96-108) mmol/L Carbon Dioxide (22-29) mmol/L Anion Gap (12-20) BUN (9-16) mg/dL Creatinine (0.5-1.4) mg/dL Estim Creat Clear Calc Estimated GFR Random Glucose (60-115) mg/dL Lactic Acid 1.9 (0.5-2.0) mmol/L Calcium (8.4-10.2) mg/dL Magnesium (1.6-2.6) mg/dL Total Bilirubin (0.0-1.0) mg/dL Direct Bilirubin (0.0-0.5) mg/dL AST (5-37) U/L ALT (0-40) U/L Alkaline Phosphatase (39-117) U/L C-Reactive Protein (< or = 0.50) mg/dL Total Protein (6.5-8.0) g/dL Albumin (3.5-5.0) g/dL Urine Color Dark Yellow Urine Appearance Clear Urine pH 6.0 (5.0-9.0) Ur Specific [place] 1.025 (1.005-1.025) Urine Protein Trace (Neg-Trace) mg/dL Urine Glucose (UA) Negative (Negative) mg/dL Urine Ketones Trace (Negative) mg/dL Urine Blood Negative (Negative) Urine Nitrite Negative (Negative) Ur Leukocyte Esterase Trace H (Negative) Urine RBC 3-5 H (0-2) /HPF Urine WBC 0-5 (0-5) /HPF Ur Squamous Epith Cells 0-2 (0-2) /HPF Urine Bacteria Trace (None Seen) Hyaline Casts 0-2 (0-2) /LPF COVID-19 (JACQUE) Negative (Negative) COVID-19 Clin Com See Note <JESSICA Boogie - Last Filed: 11/04/22 17:49> Lab Results 11/02/22 11/02/22 11/02/22 Range/Units 12:17 12:17 12:17 WBC 6.0 (4.8-10.8) X10*3/uL RBC 4.18 L (4.60-5.80) X10*6/uL Hgb 11.5 L (14.0-18.0) g/dl Hct 35.2 L (42.0-52.0) % MCV 84.2 (80.0-98.0) fL MCH 27.5 (27.0-33.0) pg MCHC 32.7 (31.0-36.0) g/dl RDW 15.4 (11.0-16.0) % Plt Count 128 L (160-400) X10*3/uL MPV 9.7 (9.4-12.4) fL Immature Gran % (Auto) 0.3 (0.0-0.4) % Neut % (Auto) 62.5 (45-73) % Lymph % (Auto) 16.8 L (20-40) % [place] % (Auto) 12.1 H (2-11) % Eos % (Auto) 7.8 H (0-4) % Baso % (Auto) 0.5 (0-2) % Lymph # (Auto) 1.0 L (1.2-4.9) X10*3/uL [place] # (Auto) 0.7 (0.1-1.2) X10*3/uL Eos # (Auto) 0.5 H (0.0-0.4) X10*3/uL Baso # (Auto) 0.0 (0.0-0.2) X10*3/uL Abs Immat Gran (auto) 0.02 (0.00-0.03) X10*3/uL Absolute Neuts (auto) 3.8 (2.0-8.3) x10*3/uL Absolute Nucleated RBC 0.000 (0.0-0.012) X10*3/uL Nucleated RBC % (auto) 0.0 (0.0-0.2) /100WBC ESR 28 H (0-15) MM/HR Sodium 142 (135-145) mmol/L Potassium 3.6 (3.3-5.1) mmol/L Chloride 110 H (96-108) mmol/L Carbon Dioxide 26 (22-29) mmol/L Anion Gap 10 L (12-20) BUN 21 H (9-16) mg/dL Creatinine 0.89 (0.5-1.4) mg/dL Estim Creat Clear Calc 82.7 Estimated GFR > 60 Random Glucose 129 H (60-115) mg/dL Lactic Acid (0.5-2.0) mmol/L Calcium 8.4 (8.4-10.2) mg/dL Magnesium 1.8 (1.6-2.6) mg/dL Total Bilirubin 1.3 H (0.0-1.0) mg/dL Direct Bilirubin 0.5 (0.0-0.5) mg/dL AST 60 H (5-37) U/L ALT 49 H (0-40) U/L Alkaline Phosphatase 120 H (39-117) U/L C-Reactive Protein 1.25 H (< or = 0.50) mg/dL Total Protein 6.9 (6.5-8.0) g/dL Albumin 2.9 L (3.5-5.0) g/dL Urine Color Urine Appearance Urine pH (5.0-9.0) Ur Specific [place] (1.005-1.025) Urine Protein (Neg-Trace) mg/dL Urine Glucose (UA) (Negative) mg/dL Urine Ketones (Negative) mg/dL Urine Blood (Negative) Urine Nitrite (Negative) Ur Leukocyte Esterase (Negative) Urine RBC (0-2) /HPF Urine WBC (0-5) /HPF Ur Squamous Epith Cells (0-2) /HPF Urine Bacteria (None Seen) Hyaline Casts (0-2) /LPF COVID-19 (JACQUE) (Negative) COVID-19 Clin Com 11/02/22 11/02/22 11/02/22 Range/Units 12:17 12:17 18:15 WBC (4.8-10.8) X10*3/uL RBC (4.60-5.80) X10*6/uL Hgb (14.0-18.0) g/dl Hct (42.0-52.0) % MCV (80.0-98.0) fL MCH (27.0-33.0) pg MCHC (31.0-36.0) g/dl RDW (11.0-16.0) % Plt Count (160-400) X10*3/uL MPV (9.4-12.4) fL Immature Gran % (Auto) (0.0-0.4) % Neut % (Auto) (45-73) % Lymph % (Auto) (20-40) % [place] % (Auto) (2-11) % Eos % (Auto) (0-4) % Baso % (Auto) (0-2) % Lymph # (Auto) (1.2-4.9) X10*3/uL [place] # (Auto) (0.1-1.2) X10*3/uL Eos # (Auto) (0.0-0.4) X10*3/uL Baso # (Auto) (0.0-0.2) X10*3/uL Abs Immat Gran (auto) (0.00-0.03) X10*3/uL Absolute Neuts (auto) (2.0-8.3) x10*3/uL Absolute Nucleated RBC (0.0-0.012) X10*3/uL Nucleated RBC % (auto) (0.0-0.2) /100WBC ESR (0-15) MM/HR Sodium (135-145) mmol/L Potassium (3.3-5.1) mmol/L Chloride (96-108) mmol/L Carbon Dioxide (22-29) mmol/L Anion Gap (12-20) BUN (9-16) mg/dL Creatinine (0.5-1.4) mg/dL Estim Creat Clear Calc Estimated GFR Random Glucose (60-115) mg/dL Lactic Acid 1.9 (0.5-2.0) mmol/L Calcium (8.4-10.2) mg/dL Magnesium (1.6-2.6) mg/dL Total Bilirubin (0.0-1.0) mg/dL Direct Bilirubin (0.0-0.5) mg/dL AST (5-37) U/L ALT (0-40) U/L Alkaline Phosphatase (39-117) U/L C-Reactive Protein (< or = 0.50) mg/dL Total Protein (6.5-8.0) g/dL Albumin (3.5-5.0) g/dL Urine Color Dark Yellow Urine Appearance Clear Urine pH 6.0 (5.0-9.0) Ur Specific [place] 1.025 (1.005-1.025) Urine Protein Trace (Neg-Trace) mg/dL Urine Glucose (UA) Negative (Negative) mg/dL Urine Ketones Trace (Negative) mg/dL Urine Blood Negative (Negative) Urine Nitrite Negative (Negative) Ur Leukocyte Esterase Trace H (Negative) Urine RBC 3-5 H (0-2) /HPF Urine WBC 0-5 (0-5) /HPF Ur Squamous Epith Cells 0-2 (0-2) /HPF Urine Bacteria Trace (None Seen) Hyaline Casts 0-2 (0-2) /LPF COVID-19 (JACQUE) Negative (Negative) COVID-19 Clin Com See Note <Shelly Brown NP - Last Filed: 11/06/22 08:54> Social Determinants Patient?s care significantly limited by Social Determinants of Health including: Inadequate housing, Low income and Alcoholism and drug addiction in family <Jerrell Ardon MD - Last Filed: 11/02/22 16:59> Discharge Plan Discharge Clinical Impression: Opioid use disorder, Polysubstance abuse, Avulsion of skin, Leg edema, right <JESSICA Sanchez - Last Filed: 11/02/22 12:10> Patient Disposition: Still a Patient <JESSICA Sanchez - Last Filed: 11/02/22 12:10> Prescriptions: No Action fluoxetine 40 mg capsule 1 cap PO DAILY prazosin 1 mg capsule 1 cap PO BEDTIME diphenhydramine HCl [Benadryl] 25 mg capsule 2 cap PO BEDTIME methadone [Methadone Intensol] 10 mg/mL Concentrate 45 mg PO DAILY (DME) Ultra-Light Rollator Misc See Rx Instructions .Route Qty: 1 0RF Rx Instructions: As directed cephalexin 500 mg capsule 500 mg PO Q12H Qty: 14 0RF doxycycline hyclate 100 mg capsule 100 mg PO BID Qty: 14 0RF <JESSICA Sanchez - Last Filed: 11/02/22 12:10>
[2022-11-02 12:23] LABS: MANUAL DIFF FLAG NO
[2022-11-02 12:32] LABS: Basophils Percent Auto 0.5 % (0-2); Eosinophils Absolute Auto 0.5 X10*3/uL (0.0-0.4); Eosinophils Percent Auto 7.8 % (0-4); Hematocrit 35.2 % (42.0-52.0); Hemoglobin 11.5 g/dl (14.0-18.0); Imm Gran Abs Auto 0.02 X10*3/uL (0.00-0.03); Imm Gran Pct Auto 0.3 % (0.0-0.4); Lymphocytes Percent Auto 16.8 % (20-40); Mean Corpuscular HGB Conc 32.7 g/dl (31.0-36.0); Mean Corpuscular Hemoglobin 27.5 pg (27.0-33.0); Mean Corpuscular Volume 84.2 fL (80.0-98.0); Mean Platelet Volume 9.7 fL (9.4-12.4); Monocytes Absolute Auto 0.7 X10*3/uL (0.1-1.2); Monocytes Percent Auto 12.1 % (2-11); Neutrophils Absolute Auto 3.8 x10*3/uL (2.0-8.3); Neutrophils Percent Auto 62.5 % (45-73); Platelet Count 128 X10*3/uL (160-400); Red Blood Count 4.18 X10*6/uL (4.60-5.80); Red Cell Distribution Width 15.4 % (11.0-16.0)
[2022-11-02 12:35] LABS: Lactic Acid 1.9 mmol/L (0.5-2.0)
[2022-11-02 12:45] LABS: Alanine Aminotransferase 49 U/L (0-40); Albumin Level 2.9 g/dL (3.5-5.0); Alkaline Phosphatase 120 U/L (39-117); Anion Gap 10 (12-20); Aspartate Amino Transferase 60 U/L (5-37); Bilirubin Direct 0.5 mg/dL (0.0-0.5); Bilirubin Total 1.3 mg/dL (0.0-1.0); Blood Urea Nitrogen 21 mg/dL (9-16); C Reactive Protein 1.25 mg/dL (< or = 0.50); Calcium 8.4 mg/dL (8.4-10.2); Carbon Dioxide 26 mmol/L (22-29); Chloride 110 mmol/L (96-108); Creatinine Clr Calc Pharmacy 82.7; Estimated Glomerular Filt Rate > 60; Glucose Random 129 mg/dL (60-115); Magnesium 1.8 mg/dL (1.6-2.6); Potassium 3.6 mmol/L (3.3-5.1); Sodium 142 mmol/L (135-145); Total Protein 6.9 g/dL (6.5-8.0)
[2022-11-02 12:46] LABS: COVID-19 Test Negative (Negative); IDNOW Serial# 08D9AD1C
[2022-11-02 13:17] LABS: Erythrocyte Sedimentation Rate 28 MM/HR (0-15)
--- NOTE | 2022-11-02 15:04 | PC.NURSE ---
Wound noted to RLE redness noted from knee down some impaired sensation per patient able to bear weight but is painful drainage noted to dressing skin flaky. IV access obtained labs collected and sent will CTM
--- NOTE | 2022-11-02 15:12 | PC.NURSE ---
MD at bedside assessing wounds will CTM
--- NOTE | 2022-11-02 16:33 | PC.NURSE ---
Case management at bedside will CTM
[2022-11-02] MEDS: methADONE HCl 20 MG/2 ML ORAL.CONC 10 MG PO (16:59)
--- NOTE | 2022-11-02 17:13 | MHC.CM.ED ---
Addendum entered by Tiffany Blanca 11/02/22 17:23: HCP on file. Corin Saul (niece) [phone]. Original Note: CM received consult from Dr. Ardon. Pt has chronic skin ulcers on R lower leg, swelling and redness. Does not require IV antibiotics. Dr. Ardon is questioning wound care for this patient. Pt is homeless, so cannot have VNA services arranged. Wound does not meet skill for STR. [facility] [place] [facility] closed. Open 8:15-4pm. CM met with patient. Patient states he cannot walk. His leg is too painful. Pt is requesting to go to [facility] for rehab. Dr. Ardon is aware and will order PT consult. Pt admits to IV drug abuse. Uses Heroin and cocaine. Denies using methadone. States was recently at [facility], and there was a problem with his methadone at discharge, so he never returned to clinic. Previous order was for Methadone 45 mg daily. Will speak to Dr. Ardon regarding methadone while hospitalized. Pt admits to using a cane, but states it's lost. 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 Pt aware that PT will determine if he needs STR. Pt also aware that his drug misuse and need for methadone limit facilities that will accept him. Referral placed to [facility] and [facility] that [facility]. CM will follow for discharge planning.
[2022-11-02 18:22] LABS: Appearance Urine Clear; Color Urine Dark Yellow; Glucose Urine UA Negative (Negative); Leukocyte Esterase Urine Trace (Negative); Nitrite Urine Negative (Negative); Specific Gravity - Urine 1.025 (1.005-1.025); UMIC TRIGGER UACC YES; Urine Blood Negative (Negative); Urine Ketones Trace mg/dL (Negative); Urine Protein Trace mg/dL (Neg-Trace)
[2022-11-02 18:24] LABS: Bacteria Urine Trace (None Seen); Hyaline Casts Urine 0-2 /LPF (0-2); Squamous Epithelial Cell Urine 0-2 /HPF (0-2); WBC Urine 0-5 /HPF (0-5)
--- NOTE | 2022-11-02 19:57 | PC.NURSE ---
Update given to pts sister with pts permission.
--- NOTE | 2022-11-02 23:56 | PC.NURSE ---
Report to Beata MARTINEZ.
[2022-11-03 05:46] VITALS: BP 122/53; PULSE 69; RESP 14; TEMP 37.2; O2SAT 97
--- NOTE | 2022-11-03 07:11 | PC.NURSE ---
Resumed care of this patient this AM, he is a/ox4. Denies pain, currently laying in bed resting, Breakfast at bedside. Plan to continue to antx today.
--- NOTE | 2022-11-03 08:21 | PC.NURSE ---
Pt alert and oriented, resp even and unlabored. Offering no complaints, aware of plan of care at this time. Awaiting hospital bed.
--- NOTE | 2022-11-03 08:33 | PC.NURSE ---
PT at bedside
[2022-11-03 08:54] VITALS: BP 122/53; PULSE 69; O2SAT 97
--- NOTE | 2022-11-03 09:02 | PC.NURSE ---
poolroom table attendant meeting with pt
--- NOTE | 2022-11-03 09:21 | MHC.RECOVRN ---
This magnetic tape typewriter operator met w/ patient, after receiving request from RN HARMONY, patient was laying in bed, awake to verbal command. Patient reports about one month ago completed detox and CSS level of care at [facility], patient reports attempted to continue on MTD after leaving [facility] however was not d/c with last dose letter, therefore patient was not able to dose at their home clinic [facility]. 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 Patient reports no other substances used. Patient reports interested in MTD maintenance. Patient denies withdrawal s/s at this time. CM aware.
--- NOTE | 2022-11-03 09:46 | PHA.MEDREC ---
Pharmacy Consult ? Medication Reconciliation Pharmacy has completed the medication reconciliation. Patient stated that he hasn't fern picker or taken his meds in 2 weeks
--- NOTE | 2022-11-03 09:50 | MHC.CM.ED ---
Patient remains in ER overflow. Physical therapy eval completed. Short term rehab is recommended. [facility] is following for bed availability. Patient will need [facility] PASRR Level 2. T/W already submitted for this. Continue to monitor for d/c needs.
--- NOTE | 2022-11-03 09:55 | MHC.EDTECH ---
Care advocator from [facility], Ana Regan, asked to speak to case management about being contacted when he is moved to another facility. She can be reached at [phone]. Spoke with the patient and his is okay that she is contacted.
--- NOTE | 2022-11-03 14:36 | MHC.RECOVRN ---
This life underwriter met w/ patient, patient resting in bed, patient awake to verbal command. Patient denied opiate withdrawal symptoms, this life underwriter encouraged patient to alert RN if starts to feel w/d s/s. Patient verbalized understanding.
--- NOTE | 2022-11-03 15:09 | PC.NURSE ---
Assumed care of patient, pt resting comfortably in bed.
[2022-11-03] MEDS: methADONE HCl 20 MG/2 ML ORAL.CONC 10 MG PO (18:02)
[2022-11-03 19:02] VITALS: BP 139/67; PULSE 76; RESP 20; O2SAT 98
--- NOTE | 2022-11-03 19:03 | MHC.EDTECH ---
patient restless stating that he is in pain and his right leg is itching. RN was made aware. Patients urinal was emptied and settled.
[2022-11-03] MEDS: Ibuprofen 600 MG TABLET PO (19:48)
--- NOTE | 2022-11-03 20:03 | MHC.EDTECH ---
i got report from previous tech Val , pt is resting a commode was put in the room at bedside ,
[2022-11-03 20:20] VITALS: BP 127/62; PULSE 81; RESP 17; TEMP 36.7; O2SAT 98
--- NOTE | 2022-11-03 20:21 | MHC.EDTECH ---
vitals taken a a snack also given
[2022-11-03] MEDS: methADONE HCl 20 MG/2 ML ORAL.CONC PO (21:03)
[2022-11-04 03:58] VITALS: BP 121/79; PULSE 69; RESP 17; TEMP 36.7; O2SAT 95
--- NOTE | 2022-11-04 03:59 | PC.NURSE ---
Assumed care of patient at 19:00. Pt c/o 04/16 pain to RLE 2/2 venous stasis ulcers. Provider notified, new order for Ibuprofen 600mg PO Q6H PRN. Pt also reports that he is restless and withdrawing from heroin, states he last used 3 days ago. Provider made aware, new order for Methadone 20mg PO. Methadone given with good effect, pt resting quietly, eyes closed throughout night.
--- NOTE | 2022-11-04 06:02 | MHC.EDTECH ---
pt slept all night no issues
[2022-11-04 11:50] VITALS: BP 134/53; PULSE 59; RESP 16; O2SAT 97
--- NOTE | 2022-11-04 12:09 | MHC.EDTECH ---
Emptied patients commode and changed patients linen. Shena Welch
--- NOTE | 2022-11-04 12:58 | MHC.RECOVRN ---
Addendum entered by Bridgette Mijares 11/04/22 13:26: Pts referral sent to [facility] as well as [facility]. Original Note: Met with pt in Overflow 1. Pt familiar with t/w from previous consults and chart reviewed. Pt received total 30 mg methadone yesterday (11/03) and would like to continue. Currently, pt experiencing restlessness, diarrhea, chills. Pt would like to continue methadone. Plan for pt to discharge to [facility] and dose with [facility] in [place]. Upon completion of treatment at [facility], pt is able to return to [facility] OTP. Discussed with Anita Moran APRN.
[2022-11-04] MEDS: methADONE HCl 20 MG/2 ML ORAL.CONC 30 MG PO (13:33)
--- NOTE | 2022-11-04 14:40 | MHC.CM.ED ---
Patient remains in ER overflow. [facility] requesting guest Methadone dosing be arranged at [facility] in [place]. Bridgette, director global development has spoke to both patient's [facility] methadone clinic and [facility] in [place] to arranged guest dosing at [facility] and can resume services at his [facility] clinic after short term rehab. [facility] made aware. Waiting to hear when patient can transfer to their facility. Continue to monitor for d/c needs.
[2022-11-04 19:24] VITALS: BP 100/49; PULSE 78; RESP 20; TEMP 37.3; O2SAT 97
[2022-11-05 06:00] VITALS: BP 135/60; PULSE 64; RESP 18; TEMP 36.8; O2SAT 96
[2022-11-05] MEDS: methADONE HCl 20 MG/2 ML ORAL.CONC 30 MG PO (08:09)
[2022-11-05 14:00] VITALS: BP 119/65; PULSE 74; RESP 18; TEMP 36.8; O2SAT 96
--- NOTE | 2022-11-05 16:15 | PC.NURSE ---
Pt is A+Ox4, pleasant, calm and cooperative. Denies pain, SOB or N&V. No issues with intake. Voided in urinal. Ambulates independently in room frequently. RLE wound dressing changed. Call vargas within reach.
[2022-11-05 22:01] VITALS: BP 118/59; PULSE 68; RESP 18; TEMP 36.7; O2SAT 98
[2022-11-06 05:20] VITALS: BP 105/43; PULSE 67; RESP 18; TEMP 36.6; O2SAT 96
[2022-11-06] MEDS: methADONE HCl 20 MG/2 ML ORAL.CONC 30 MG PO (08:48)
--- NOTE | 2022-11-06 08:55 | PC.NURSE ---
patient alert, oriented x4. able to make needs known. denies pain at this time. cooperative and pleasant with staff. call vargas within reach
--- NOTE | 2022-11-06 13:05 | MHC.CM.ED ---
Patient remains in ER overflow. [facility] is willing to accept patient when they have a bed but need patient to be guest dose at [facility] in [place]. Recovery team has been assisting in arranging this. Patient will be able to resume methadone dosing at [facility] on when out of STR. [facility] will verify on Monday. Continue to monitor for d/c needs.
[2022-11-06 13:54] VITALS: BP 127/71; PULSE 73; RESP 18; TEMP 36.7; O2SAT 96
--- NOTE | 2022-11-07 07:24 | PC.NURSE ---
Resumed care of this patient this AM, he is alert in bed, finishing up his breakfast. Denies pain. Needs met at this time
[2022-11-07 07:57] VITALS: BP 129/73; PULSE 76; RESP 18; TEMP 36.8; O2SAT 96
[2022-11-07] MEDS: methADONE HCl 20 MG/2 ML ORAL.CONC 30 MG PO (08:14)
--- NOTE | 2022-11-07 10:40 | MHC.CM.PN ---
Addendum entered by Ghada Fu 11/07/22 14:56: TRANSPORT SET UP FOR [address] TO [facility] Addendum entered by Ghada Fu 11/07/22 12:39: [facility] CAN TAKE PT TODAY LAST DOSE LETTER SENT THEY WILL NEED TRANSFER SUMMARY EARLY POSSIBLE TO ENSURE [facility] IS GOOD TO START TOMORROW PROVIDER IS AWARE PT IS AWARE HE WILL GO TODAY HE REPORTS CONCERN THAT HE IS SUPPOSED TO GO TO COURT ON THE 7TH OF THIS MONTH CM WILL CONTACT [facility] AND INFORM THEM OF PTS MEDICAL STAY AND TRANSFER TO SNF Original Note: PT AWAITING SNF PLACEMENT, NOTES INDICATE [facility] IS ACCEPTING UPDATES WERE SENT PER MESSAGES, HV WILL CONFIRM PT IS SET TO START GUEST DOSING AT [facility] IN [place] AWAITING RESPONSE TO DETERMINE IF THEY ARE ABLE TO OFFER A BED TODAY
--- NOTE | 2022-11-07 13:49 | PC.NURSE ---
This health underwriter went in to remove IV, and sign D/C paperwork with patient, as nurse entered he had removed his leg dressing, and was washing with sink water and tissues, this health underwriter offered to help patient and get supplies but he refused and said he had everything he needed. This health underwriter encouraged to let him help, however he continued to decline..
[2022-11-07 14:02] VITALS: BP 130/63; PULSE 76; RESP 18; TEMP 36.7; O2SAT 96
--- NOTE | 2022-11-07 16:38 | PC.NURSE ---
Pt A/O. Ambulance here for pt transport to [facility]. Pt denies pain.
== END 2022-11-07 16:30 | disposition skilled nursing facility (03) ==
PROVIDERS: Physician Assistant; Emergency Provider Emergency Medicine
DX: S81.801A Unspecified open wound, right lower leg, initial encounter (principal); F11.10 Opioid abuse, uncomplicated; L03.115 Cellulitis of right lower limb; R60.0 Localized edema; R26.2 Difficulty in walking, not elsewhere classified; X58.XXXA Exposure to other specified factors, initial encounter; Y93.9 Activity, unspecified; Y92.9 Unspecified place or not applicable; Y99.9 Unspecified external cause status; Z59.00 Homelessness unspecified; Z20.822 Contact with and (suspected) exposure to COVID-19; Z20.828 Contact with and (suspected) exposure to other viral communicable diseases; Z87.891 Personal history of nicotine dependence; Z79.899 Other long term (current) drug therapy
CPT/HCPCS: 73590; 80048; 80076; 81001; 83605; 83735; 85025; 85652; 86140; 87040; 87635; 97162; 99285

== ENCOUNTER 2022-11-22 10:51 | Emergency (ER) | payer MEDICARE, MEDICAID, SELFPAY ==
--- NOTE | 2022-11-22 11:00 | ED.GENADULT ---
HPI - General Adult General Chief complaint: Overdose Stated complaint: OPIATE OD,NARCAN GIVEN W/GOOD RESULT PER EMS Time Seen by Provider: 11/22/22 10:56 Source: patient, EMS, RN notes reviewed and old records reviewed Mode of arrival: EMS History of Present Illness HPI narrative: 66-year-old male with a past medical history of polysubstance abuse, IVDA, hepatitis-C, liver cirrhosis, venous stasis ulcer, presenting to the ED via EMS for heroin overdose, given 4 mg of intranasal Narcan by PD with positive results. Patient admits to taking his methadone in using 2 bags of heroin today thinks heroin was laced. Denies injury/trauma or fall, SI/HI. Patient is currently interested in detox Related Data Home Medications Medication Instructions Recorded Confirmed methadone 10 mg/mL oral 45 mg PO DAILY 04/11/22 11/03/22 concentrate (Methadone Intensol) diphenhydramine HCl 25 mg capsule 2 cap PO BEDTIME 07/18/22 11/03/22 (Benadryl) fluoxetine 40 mg capsule 1 cap PO DAILY 07/18/22 11/03/22 prazosin 1 mg capsule 1 cap PO BEDTIME 07/18/22 11/03/22 Previous Rx's Medication Instructions Recorded walker (Ultra-Light Rollator misc) #1 ea 04/15/22 cephalexin 500 mg capsule 500 mg PO Q12H #14 caps 10/29/22 doxycycline hyclate 100 mg capsule 100 mg PO BID #14 caps 10/29/22 Allergies Allergy/AdvReac Type Severity Reaction Status Date / Time trazodone [TRAZODONE] Allergy Intermediate RESTLESS Verified 11/22/22 11:31 LEGS Review of Systems Review of Systems: Constitutional: No Fever, No Chills, No Fatigue, No Malaise ENT/Mouth: No Ear Pain, No Nasal Congestion, No sore throat, No Rhinorrhea, No Swallowing Difficulty Eyes: No Eye Pain, No Swelling, No Vision Changes Cardiovascular: No Chest Pain, No SOB Respiratory: No Cough, No Sputum, No Dyspnea Gastrointestinal: No Nausea, No Vomiting, No Diarrhea, No Constipation, No Abdominal pain Musculoskeletal: No joint pain, No Myalgias, No Joint Swelling Skin: No Skin Lesions, No rash Neuro: No Weakness, No Numbness, No Paresthesias, No Loss of Consciousness, No Headache Psych: No Anxiety/Panic, No Depression, No SI/HI/AH/VH, + Social Issues Yes all other systems are reviewed and are negative Constitutional: Constitutional: Reports as per [facility] Past Medical History Attestation statement: The following information was validated with the patient. 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 Opiate dependence Opioid use disorder Physical deconditioning Polysubstance abuse Tobacco dependence Varicose veins of right lower extremity with inflammation Venous stasis ulcer Surgical History H/O hernia repair Family History Family History Mother CAD (coronary artery disease) ESRD (end stage renal disease) Brother Liver failure Social History Social History Household Members: Other Household Members Other:: Currently residing in a rehab facility Housing: Homeless Housing Other:: Currently residing in a rehab facility Do you presently have visiting nurse or other home services: Yes Unable to assess alcohol history related to: Unknown Alcohol intake: unknown Patient Tobacco Use Status: Former Tobacco user Tobacco use type: Cigarette Cigarettes Per Day: 2 Years Smoked: 40 Smoked in Last 30 Days: Yes e-Cigarette/Vaping Use: Never Used Second Hand Smoke Exposure: Yes Use of substances other than those prescribed or required for medical reasons: Yes Substance Use Type: Heroin Advance Directives: Yes Advance Directives on File: Yes Advance Directives Date on File: 02/11/21 service: No Current occupational status: disabled Physical Exam ED Vital Signs: Vital Signs - 24 hr 11/22/22 11:22 11/22/22 11:37 Temperature 98.0 F Pulse Rate 88 Respiratory Rate 20 22 H Blood Pressure 151/70 H Pulse Oximetry 100 100 Oxygen Delivery Method Room Air Room Air BMI result Body Mass Index 25.8 Const Other: Under the influence General: no acute distress, alert and awake Limitations: no limitations HENMT Head: Yes normal to inspection and Yes atraumatic Ears: hearing grossly normal bilaterally General nose exam: Normal external nose present Face and sinus: Yes normal facial exam Eyes General: appearance normal, both eyes and all related structures EOM: EOMs intact bilaterally Neck Neck: Yes normal visual inspection and Yes no meningeal signs Resp Effort & Inspection: normal respiratory effort and no respiratory distress Auscultation: clear to auscultation bilaterally Cardio Rate: regular rate Heart sounds: S1 normal heart sound present and S2 normal heart sound present GI Inspection: Yes normal to inspection Palpation (GI): Soft to palpation, nontender, no guarding and not rigid Back/Spine/Pelvis Other: No midline cervical/thoracic/lumbar spinous tenderness/step-off or deformity Skin Rashes: no rashes Wounds: no wounds Neuro General: tone normal, moves all extremities, no meningeal signs and CN's II-XI intact bilaterally Extrem General: Yes normal to inspection Psych Thought content: suicidality and no homicidality Course Course Course Narrative: -1400--patient more alert, cooperative, lying in stretcher in no apparent distress, eating, requesting detox -1545--patient spoke with recovery, [facility] completed. Patient is not a candidate for detox as left [facility] yesterday and had a 1 day recurrent Resource is reviewed with patient to follow-up in the community > patient is safe for discharge home at this time Results discussed with patient including worrisome signs and symptoms and strict return precautions, and when to return to the emergency department. They verbalized understanding and feel safe for discharge at this time. Medical Decision Making Medical Decision Making [facility] Narrative: 66-year-old male with a past medical history of polysubstance abuse, IVDA, hepatitis-C, liver cirrhosis, venous stasis ulcer, presenting to the ED via EMS for heroin overdose, given 4 mg of intranasal Narcan by PD with positive results. On exam vital signs stable, NAD, appears under the influence, protecting airway, awake and alert, not fully cooperative with exam/history. Denies trauma, SI or HI. Concern for substance abuse. Low suspicion for ICH or intra-abdominal/intrathoracic bleeding Plan: Drug screen, recovery consult Please refer to course for remaining clinical decision making, interpretation of labs/imaging results, and discussions with consultants and/or family members. Differential Diagnosis Differential Diagnoses: The differential diagnosis associated with the presentation includes As above Admission/Observation Consideration of admission/observation: Escalation of care including admission/observation considered Lab Data [facility] Lab Attestation statement: I reviewed the patient's lab results. Labs: Lab Results 11/22/22 Range/Units 11:52 Urine Opiates Screen POSITIVE H (Not Detect) Urine Fentanyl Screen POSITIVE H (Not Detect) Ur Barbiturates Screen Not Detected (Not Detect) Ur Phencyclidine Scrn Not Detected (Not Detect) Ur Amphetamines Screen Not Detected (Not Detect) U Benzodiazepines Scrn Not Detected (Not Detect) Urine Cocaine Screen POSITIVE H (Not Detect) U Marijuana (THC) Screen Not Detected (Not Detect) Radiology Impression Discussion of test interpretation with radiology: I have reviewed the radiologist's reading. External Record Review External record reviewed: Inpatient record, Office record, Outpatient record, Prior outpatient labs, Prior outpatient radiology, Primary care record and Outside ED record Discharge Plan Discharge Clinical Impression: Drug overdose Patient Disposition: Home, Self-Care Instructions: Adult Overdose (ED) Additional Instructions: AVOID ALCOHOL AND DRUG USE THIS CAN KILL YOU TRY TO GET INTO DETOX ON YOUR OWN IF YOU HAVE THOUGHTS OF HURTING YOURSELF OR OTHERS RETURN TO THE ED Prescriptions: No Action fluoxetine 40 mg capsule 1 cap PO DAILY prazosin 1 mg capsule 1 cap PO BEDTIME diphenhydramine HCl [Benadryl] 25 mg capsule 2 cap PO BEDTIME methadone [Methadone Intensol] 10 mg/mL Concentrate 45 mg PO DAILY (DME) Ultra-Light Rollator Misc See Rx Instructions .Route Qty: 1 0RF Rx Instructions: As directed cephalexin 500 mg capsule 500 mg PO Q12H Qty: 14 0RF doxycycline hyclate 100 mg capsule 100 mg PO BID Qty: 14 0RF Referrals: [facility] [Provider Group] [facility] [Outside]
[2022-11-22 11:22] VITALS: BP 151/70; BP 170/72; PULSE 100; PULSE 88; RESP 20; TEMP 36.7; O2SAT 100; O2SAT 99; BMI 25.8
[2022-11-22 11:37] VITALS: RESP 22; O2SAT 100
--- NOTE | 2022-11-22 11:47 | PC.NURSE ---
Pt is alert but restless erratic behavior however since admission pt appears to answer more appropriately. Admits to being dosed with approx 30mg of Methadone this AM then used to bags, recreational. Denies SI or HI. Old dried closed wounds to right LE. Pt states pain to general body. VSS. sat 100% on room air, awake and alert. Belongings to decon by security.
[2022-11-22 12:28] LABS: Amphetamine Screen Urine Not Detected (Not Detect); Barbiturates, Urine Not Detected (Not Detect); Benzodiazepines Screen Urine Not Detected (Not Detect); Cannabinoid Screen Urine Not Detected (Not Detect); Cocaine Screen Urine POSITIVE (Not Detect); Fentanyl, urine POSITIVE (Not Detect); Opiate Screen Urine POSITIVE (Not Detect); Phencyclidine Screen Urine Not Detected (Not Detect)
--- NOTE | 2022-11-22 15:04 | HO.SUDE ---
This mortgage underwriter met w/ patient, patient was in story bed, alert, awake, frequent body movements, frequent noises. Patient reports was at [facility] for several weeks. Patient reports was there for issues with non healing ulcer on right leg. Patient states while at [facility], was on 35-60mg MTD. Patient reports last MTD dose yesterday 11/21/22 at 35mg. Patient states left [facility] yesterday 11/21/22. Patient states today used 2 bags IV heroin, IV BRYCE use. Patient reports no hx of overdoses. Patient reports recovery time for past several weeks. Patient reports has been through treatment for substance use in the past. Harm reduction and opiate overdose prevention reviewed. Patient verbalized understanding.
--- NOTE | 2022-11-22 16:18 | MHC.RECOVSUP ---
T/W provided pt with recovery resources.
== END 2022-11-22 16:10 | disposition home or self-care (01) ==
PROVIDERS: Physician Assistant; Emergency Provider Emergency Medicine
DX: F19.10 Other psychoactive substance abuse, uncomplicated (principal); T40.1X1A Poisoning by heroin, accidental (unintentional), initial encounter; Y92.410 Unspecified street and highway as the place of occurrence of the external cause; F11.20 Opioid dependence, uncomplicated; Z79.899 Other long term (current) drug therapy
CPT/HCPCS: 80307; 99284; 99285

== ENCOUNTER 2022-11-28 13:19 | Emergency (ER) | payer MEDICARE, MEDICAID, SELFPAY ==
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
[2022-11-28 13:29] VITALS: BP 149/76; PULSE 98; RESP 18; TEMP 36.8; O2SAT 97; BMI 27.1
--- NOTE | 2022-11-28 13:45 | MHC.EDTECH ---
pt refusing EKG.
--- NOTE | 2022-11-28 13:50 | MHC.EDTECH ---
pt refusing lab work.
--- NOTE | 2022-11-28 14:16 | ED.FALL ---
HPI - Fall General Chief Complaint: Fall Stated Complaint: FALL,+HS,+COLLAR,+ETOH,+HEROIN Time Seen by Provider: 11/28/22 13:34 Source: patient Mode of arrival: EMS History of Present Illness HPI Narrative: This is a 66-year-old male who is brought in by EMS due to falling backwards and striking his head. Patient himself states that he does not want any imaging or lab work to be done, and continues to states that he is fine. He states that he simply lost his balance and fell backwards hitting the back of his head and denies any loss of consciousness. He states he is continue take his antibiotics as prescribed for a recent diagnosis of cellulitis for which he is receiving treatment. Related Data Home Medications Medication Instructions Recorded Confirmed methadone 10 mg/mL oral 45 mg PO DAILY 04/11/22 11/03/22 concentrate (Methadone Intensol) diphenhydramine HCl 25 mg capsule 2 cap PO BEDTIME 07/18/22 11/03/22 (Benadryl) fluoxetine 40 mg capsule 1 cap PO DAILY 07/18/22 11/03/22 prazosin 1 mg capsule 1 cap PO BEDTIME 07/18/22 11/03/22 Previous Rx's Medication Instructions Recorded walker (Ultra-Light Rollator misc) #1 ea 04/15/22 cephalexin 500 mg capsule 500 mg PO Q12H #14 caps 10/29/22 doxycycline hyclate 100 mg capsule 100 mg PO BID #14 caps 10/29/22 Allergies Allergy/AdvReac Type Severity Reaction Status Date / Time trazodone [TRAZODONE] Allergy Intermediate RESTLESS Verified 11/22/22 11:31 LEGS Review of Systems Review of Systems: Pertinent positives and negatives as stated in HPI PMFSH Past Medical History Source: nursing notes reviewed 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 Opiate dependence Opioid use disorder Physical deconditioning Polysubstance abuse Tobacco dependence Varicose veins of right lower extremity with inflammation Venous stasis ulcer Surgical History H/O hernia repair Family History Family History Mother CAD (coronary artery disease) ESRD (end stage renal disease) Brother Liver failure Social History Social History Household Members: Other Household Members Other:: Currently residing in a rehab facility Housing: Homeless Housing Other:: Currently residing in a rehab facility Do you presently have visiting nurse or other home services: Yes Unable to assess alcohol history related to: Unknown Alcohol intake: unknown Patient Tobacco Use Status: Former Tobacco user Tobacco use type: Cigarette Cigarettes Per Day: 2 Years Smoked: 40 Smoked in Last 30 Days: Yes e-Cigarette/Vaping Use: Never Used Second Hand Smoke Exposure: Yes Substance Use Type: Heroin Advance Directives: Yes Advance Directives on File: Yes Advance Directives Date on File: 02/11/21 service: No Current occupational status: disabled Physical Exam Vital Signs: Vital Signs: Last Vital Signs Temp 98.3 F 11/28/22 13:29 Pulse 98 11/28/22 13:29 Resp 18 11/28/22 13:29 BP 149/76 H 11/28/22 13:29 Pulse Ox 97 11/28/22 13:29 O2 Del Method Room Air 11/28/22 13:29 BMI result Body Mass Index 27.1 VITAL SIGNS: Reviewed. GENERAL: Well developed, well nourished, in no acute distress. HEAD: Normocephalic/atraumatic, specifically there is no evidence of abrasion, contusion, hematoma, laceration EYES: PERRLA, EOMI EARS: Ext canals without abnormality NECK: Patient has removed the C-collar, there is no midline cervical spine tenderness or step-offs noted, Supple, no adenopathy LUNGS: Normal breath sounds. No adventitious sounds or accessory muscle use. SpO2<97> CARDIOVASCULAR: Regular rate and rhythm without noted murmurs, no JVD or lower extremity edema. ABDOMEN: Soft, non-tender, non-distended with bowel sounds. MUSCULOSKELETAL: No tenderness, deformities, or effusions noted on gross inspection. EXTREMITIES: No cyanosis, clubbing or edema. SKIN: Inspection of the skin reveals no rashes NEUROLOGIC: Alert and oriented x 3. Strength and sensation to light touch were grossly intact x 4. Medical Decision Making Medical Decision Making MDM Narrative: This is a 66-year-old male with history and clinical presentation consistent with a fall without loss of consciousness and patient is not on any blood thinners. Patient is declining all investigations to include imaging studies. Patient was strongly encouraged to proceed with lab work as well as head and C-spine imaging however he is declining and understands the risks. He is alert and oriented and appears to be at his baseline. Patient is moving all 4 extremities spontaneously, there are no noted focal deficits, patient denies any medical complaints, I reviewed all vital signs which appear to be stable, baseline. On evaluation for ambulation patient ambulates with a steady gait using his walker which is baseline. 1549: Patient still does not have a CT scan read on head and cervical spine but has left regardless, signing his against medical advice paperwork. Differential Diagnosis Please see the discussion above Lab Data Declined Radiology Impression Radiologist Impression: Declined imaging studies External Record Review External record reviewed: Outpatient record and Prior outpatient labs Discharge Plan Discharge Clinical Impression: Polysubstance abuse, Fall Patient Disposition: Home, Self-Care Instructions: Fall Prevention for Older Adults (ED), Polysubstance Abuse (ED) Additional Instructions: 1. Please follow-up with your primary care provider. Return to the ER for any worsening symptoms. Prescriptions: No Action fluoxetine 40 mg capsule 1 cap PO DAILY prazosin 1 mg capsule 1 cap PO BEDTIME diphenhydramine HCl [Benadryl] 25 mg capsule 2 cap PO BEDTIME methadone [Methadone Intensol] 10 mg/mL Concentrate 45 mg PO DAILY (DME) Ultra-Light Rollator Misc See Rx Instructions .Route Qty: 1 0RF Rx Instructions: As directed cephalexin 500 mg capsule 500 mg PO Q12H Qty: 14 0RF doxycycline hyclate 100 mg capsule 100 mg PO BID Qty: 14 0RF Referrals: [facility] [Primary Care Provider] - Stand Alone Forms: Against Medical Advice Interventions: ED Discharge Assessment Last Done: 11/28/22 15:42 Discharge Date/Time: 11/28/22 15:42 Print Language: [place] Citizen
--- NOTE | 2022-11-28 15:26 | PC.NURSE ---
Pt refusing EKG and blood work, stating everything is fine and that he does not need it. Ambulating with steady gait using walker
== END 2022-11-28 15:42 | disposition home or self-care (01) ==
PROVIDERS: Emergency Provider Student in an Organized Health Care Education/Training Program
DX: F19.10 Other psychoactive substance abuse, uncomplicated (principal); F11.20 Opioid dependence, uncomplicated; Z91.81 History of falling
CPT/HCPCS: 70450; 72125; 99284

== ENCOUNTER 2022-12-03 22:28 | Emergency (ER) | payer MEDICARE, MEDICAID, SELFPAY ==
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
[2022-12-03 23:06] VITALS: BP 104/60; PULSE 113; RESP 16; TEMP 38; O2SAT 94; BMI 26.6
[2022-12-04 00:46] VITALS: BP 118/59; PULSE 84; RESP 18; TEMP 36.6; O2SAT 97
[2022-12-04 00:55] LABS: MANUAL DIFF FLAG NO
[2022-12-04 00:56] LABS: Basophils Percent Auto 0.4 % (0-2); Eosinophils Absolute Auto 0.3 X10*3/uL (0.0-0.4); Eosinophils Percent Auto 2.8 % (0-4); Hematocrit 31.1 % (42.0-52.0); Hemoglobin 10.1 g/dl (14.0-18.0); Imm Gran Abs Auto 0.04 X10*3/uL (0.00-0.03); Imm Gran Pct Auto 0.4 % (0.0-0.4); Lymphocytes Absolute Auto 1.7 X10*3/uL (1.2-4.9); Lymphocytes Percent Auto 18.4 % (20-40); Mean Corpuscular HGB Conc 32.5 g/dl (31.0-36.0); Mean Corpuscular Hemoglobin 27.2 pg (27.0-33.0); Mean Corpuscular Volume 83.8 fL (80.0-98.0); Mean Platelet Volume 10.3 fL (9.4-12.4); Monocytes Absolute Auto 1.2 X10*3/uL (0.1-1.2); Monocytes Percent Auto 13.5 % (2-11); Neutrophils Absolute Auto 5.8 x10*3/uL (2.0-8.3); Neutrophils Percent Auto 64.5 % (45-73); Platelet Count 120 X10*3/uL (160-400); Red Blood Count 3.71 X10*6/uL (4.60-5.80); Red Cell Distribution Width 15.9 % (11.0-16.0)
[2022-12-04 01:12] LABS: Alanine Aminotransferase 31 U/L (0-40); Albumin Level 2.9 g/dL (3.5-5.0); Alkaline Phosphatase 97 U/L (39-117); Anion Gap 9 (12-20); Aspartate Amino Transferase 44 U/L (5-37); Bilirubin Total 1.5 mg/dL (0.0-1.0); Blood Urea Nitrogen 19 mg/dL (9-16); Calcium 8.5 mg/dL (8.4-10.2); Carbon Dioxide 26 mmol/L (22-29); Chloride 106 mmol/L (96-108); Creatinine Clr Calc Pharmacy 76.7; Estimated Glomerular Filt Rate > 60; Glucose Random 110 mg/dL (60-115); Potassium 3.5 mmol/L (3.3-5.1); Sodium 137 mmol/L (135-145); Total Protein 6.6 g/dL (6.5-8.0)
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
[2022-12-04] MEDS: Ketorolac Tromethamine 60 MG/2 ML VIAL IM (01:27)
[2022-12-04 07:48] VITALS: BP 134/65; PULSE 64; RESP 18; TEMP 37.1; O2SAT 100
--- NOTE | 2022-12-04 07:49 | PC.NURSE ---
awake, requesting methadone dose 40-45mg. uses clinic on [address] axox3. grimaces with movement.
--- NOTE | 2022-12-04 08:13 | PC.NURSE ---
RLE wound undressed. dry flaky skin, pale redness on chronic wound. sml area is open. no drainage. not warm to touch. RLE from knee down has non pitting taught edema. provider called to bedside for exam. no abx needed.
--- NOTE | 2022-12-04 08:26 | MHC.RECOVRN ---
Spoke with Niki at [facility], pt last dosed with them on 09/15, 60 mg methadone. Since then, pt has been to [facility] and [facility] with intermittent dosing. Pt able to restart methadone and return to [facility] with last dose letter.
[2022-12-04] MEDS: methADONE HCl 20 MG/2 ML ORAL.CONC 40 MG PO (09:54)
--- NOTE | 2022-12-04 09:55 | PC.NURSE ---
Patient medicated with Methadone and informed that he was going to be discharge. Patient states that he is unable to ambulate at this time. This nurse inquired about how patient was getting around outside of this facility and patient did not give a direct answer.
--- NOTE | 2022-12-04 10:30 | PC.NURSE ---
Patient walked with walker with some assist by staff. Patient to be evaluated by Case management and PT for possible placement
--- NOTE | 2022-12-04 11:07 | MHC.CM.PN ---
CM RECEIVED CM CONSULT VIA ED PROVIDER. CM MET WITH PT AT BEDSIDE. PT IS COMPLAINING OF RIB PAIN AND DIFFICULTY WITH AMBULATION. PT IS AWARE P.T. WILL NOT BE IN TO SEE UNTIL TOMORROW. PT IS HOMELESS AT BASELINE. HE IS OPEN TO GOING TO A SNF SHOULD P.T. RECOMMEND AND HAS NO PREFERENCE. PT USES A WALKING STICK WITH AMBULATION. +HCP ON FILE +COVID VAX X 4 PCP AT [facility]. PATIENT GETS METHADONE FROM [facility]. CM WILL FOLLOW FOR DC NEEDS.
[2022-12-04 12:45] VITALS: BP 119/55; PULSE 62; RESP 16; TEMP 36.7; O2SAT 99
--- NOTE | 2022-12-04 13:00 | PC.NURSE ---
Patient sitting on stretcher calm and cooperative. Patient given lunch tray. No s/s of distress.
[2022-12-04 15:31] VITALS: BP 117/60; PULSE 67; RESP 14; TEMP 36.6; O2SAT 98
--- NOTE | 2022-12-04 19:02 | PC.NURSE ---
Confirmed patient home medications with patient. Provider made aware and home medications ordered.
[2022-12-04] MEDS: cephALEXin 500 MG CAPSULE PO (19:27)
--- NOTE | 2022-12-04 20:22 | PC.NURSE ---
Report given to Sara in overflow, patient to be transferred.
[2022-12-05] MEDS: oxyCODONE HCl Immed Release 5 MG TABLET PO ×3 (03:39→22:11)
[2022-12-05 04:00] VITALS: BP 104/45; PULSE 67; RESP 18; TEMP 36.3; O2SAT 98
[2022-12-05 08:34] VITALS: BP 135/69; PULSE 67; RESP 18; O2SAT 95
[2022-12-05] MEDS: Doxycycline Monohydrate 100 MG CAPSULE PO ×2 (09:47→22:26)
[2022-12-05] MEDS: cephALEXin 500 MG CAPSULE PO ×2 (09:47→22:12)
[2022-12-05] MEDS: FLUoxetine HCl 20 MG CAPSULE 40 MG PO (09:48)
[2022-12-05 11:42] LABS: IDNOW Serial# 9DB6401D
[2022-12-05 11:43] LABS: COVID-19 Test Negative (Negative)
[2022-12-05 11:49] LABS: Amphetamine Screen Urine Not Detected (Not Detect); Barbiturates, Urine Not Detected (Not Detect); Benzodiazepines Screen Urine Not Detected (Not Detect); Cannabinoid Screen Urine Not Detected (Not Detect); Cocaine Screen Urine POSITIVE (Not Detect); Fentanyl, urine POSITIVE (Not Detect); Opiate Screen Urine POSITIVE (Not Detect); Phencyclidine Screen Urine Not Detected (Not Detect)
--- NOTE | 2022-12-05 12:02 | MHC.CM.ED ---
Addendum entered by Carrol Castaneda 12/05/22 13:22: Attempted to update patient on discharge plan. Patient currently sleeping. Original Note: Patient remains in ER overflow. Physical therapy eval completed. Short term rehab is recommended. Patient is on Methadone and will be difficult to place. PT eval sent to [facility]. Patient will need [facility] PASRR Level 2. T/W already submitted Level 1. Continue to monitor for d/c needs.
--- NOTE | 2022-12-05 15:58 | MHC.EDTECH ---
Brought patient snacks ice cream, carl crackers, and juice.
[2022-12-05] MEDS: methADONE HCl 20 MG/2 ML ORAL.CONC 40 MG PO (17:25)
[2022-12-05 18:00] VITALS: BP 124/83; PULSE 75; RESP 16; TEMP 37.1; O2SAT 97
--- NOTE | 2022-12-05 19:01 | MHC.EDTECH ---
Set patient in bathroom for ADLs. Brought patient naty pant and top. Mouth wash and spongy mouth brush for oral care.
[2022-12-05 22:06] VITALS: BP 148/80; PULSE 69; RESP 18; TEMP 36.8; O2SAT 99
[2022-12-05] MEDS: diphenhydrAMINE HCL 25 MG CAPSULE 50 MG PO (22:12)
[2022-12-05] MEDS: Prazosin HCL 1 MG CAPSULE PO (22:25)
[2022-12-06] VITALS: BP 126/82; PULSE 74; RESP 16; TEMP 36.8; O2SAT 96
[2022-12-06 06:41] VITALS: BP 113/54; PULSE 65; RESP 12; TEMP 36.7; O2SAT 96
[2022-12-06] MEDS: cephALEXin 500 MG CAPSULE PO ×2 (08:36→17:56)
[2022-12-06] MEDS: FLUoxetine HCl 20 MG CAPSULE 40 MG PO (08:36)
[2022-12-06] MEDS: Doxycycline Monohydrate 100 MG CAPSULE PO ×2 (08:36→20:38)
--- NOTE | 2022-12-06 09:03 | MHC.EDTECH ---
Pt given supplies to get cleaned up for day. Denies any help or additional needs at this time.
--- NOTE | 2022-12-06 09:35 | PC.NURSE ---
patient sleeping. respirations equal and unlabored. able to make needs known. call vargas placed within reach. will CTM
--- NOTE | 2022-12-06 10:21 | MHC.CM.ED ---
Addendum entered by Carrol Castaneda 12/06/22 10:40: [facility] is not able to offer a bed. Referral broadcasted within 100 miles to all facilities that can accommodate Methadone patients. Original Note: Patient remains in ER overflow unit. Received notification that [facility] will not be able to offer a bed. Clinical updates sent to [facility]. Continue to monitor for d/c needs.
[2022-12-06] MEDS: methADONE HCl 20 MG/2 ML ORAL.CONC 40 MG PO (11:01)
[2022-12-06 14:00] VITALS: BP 149/67; PULSE 70; RESP 20; TEMP 36.5; O2SAT 97
--- NOTE | 2022-12-06 17:54 | PC.NURSE ---
patient refused physical therapy today. tolerating liquid diet and pills with water. no signs of difficulty. able to make needs known. will CTM
[2022-12-06] MEDS: diphenhydrAMINE HCL 25 MG CAPSULE 50 MG PO (20:37)
[2022-12-06] MEDS: Prazosin HCL 1 MG CAPSULE PO (20:38)
--- NOTE | 2022-12-07 06:28 | PC.NURSE ---
pt assessed during the shift, pt slept during the shift, denies any pain, voiding in the urinal
[2022-12-07 06:39] VITALS: BP 141/68; PULSE 62; RESP 14; TEMP 36.2; O2SAT 95
[2022-12-07] MEDS: FLUoxetine HCl 20 MG CAPSULE 40 MG PO (08:10)
[2022-12-07] MEDS: methADONE HCl 20 MG/2 ML ORAL.CONC 40 MG PO (08:10)
[2022-12-07] MEDS: Doxycycline Monohydrate 100 MG CAPSULE PO ×2 (08:10→20:31)
[2022-12-07] MEDS: cephALEXin 500 MG CAPSULE PO ×2 (08:10→20:32)
--- NOTE | 2022-12-07 12:31 | MHC.CM.ED ---
Patient remains in ER overflow. Patient is on Methadone. Has been difficult to place due to this. Referral broadcasted within the entire [facility] to all facilities that are able to accomodate Methadone. 21 referrals made. Left voicemails for the facilities that haven't responded in [facility]: [facility], and [facility]. Continue to monitor for d/c needs.
[2022-12-07] MEDS: diphenhydrAMINE HCL 25 MG CAPSULE 50 MG PO (20:32)
[2022-12-07 20:33] VITALS: BP 138/69; PULSE 70; RESP 18; TEMP 36.2; O2SAT 98
[2022-12-07] MEDS: oxyCODONE HCl Immed Release 5 MG TABLET PO (20:34)
[2022-12-07] MEDS: Prazosin HCL 1 MG CAPSULE PO (20:34)
[2022-12-08 06:00] VITALS: BP 140/62; PULSE 68; RESP 16; TEMP 36.7; O2SAT 97
--- NOTE | 2022-12-08 06:02 | PC.NURSE ---
patient walked to BR with walker with standby assist. gave oxycodone 5mg for pain x1 with good effect. no overnight concerns. VSS
--- NOTE | 2022-12-08 06:15 | MHC.EDTECH ---
0600 ROUNDING DONE ,VITALS SIGN TAKEN ,URINAL EMPTY 600 ML ,FRESH ICE WATER GIVEN .
[2022-12-08] MEDS: methADONE HCl 20 MG/2 ML ORAL.CONC 40 MG PO (08:27)
[2022-12-08] MEDS: FLUoxetine HCl 20 MG CAPSULE 40 MG PO (08:27)
[2022-12-08] MEDS: Doxycycline Monohydrate 100 MG CAPSULE PO ×2 (08:27→20:25)
[2022-12-08] MEDS: cephALEXin 500 MG CAPSULE PO ×2 (08:27→20:25)
--- NOTE | 2022-12-08 09:05 | PC.NURSE ---
pt is aox3 speaking in full clear sentences. medicated per emar. resting in bed at this time. ate breakfast.
[2022-12-08 14:36] VITALS: BP 138/71; PULSE 70; RESP 15; TEMP 36.9; O2SAT 96
[2022-12-08] MEDS: Prazosin HCL 1 MG CAPSULE PO (20:25)
[2022-12-08] MEDS: diphenhydrAMINE HCL 25 MG CAPSULE 50 MG PO (20:25)
--- NOTE | 2022-12-08 21:07 | MHC.CM.ED ---
Pt ambulated with walker quickly, with steady gait to bathroom, 1/[address] around overflow unit. Updated provider. Will have PT re-assess patient in the morning for continued need for STR. Referrals made statewide that accept methadone, without bed offer. Will place referrals with LTAC's. CM following for discharge needs.
[2022-12-08 22:50] VITALS: BP 121/49; PULSE 83; RESP 18; TEMP 37.4; O2SAT 93
[2022-12-09 06:00] VITALS: BP 119/64; PULSE 64; RESP 18; TEMP 36.8; O2SAT 96
[2022-12-09 09:34] VITALS: BP 119/64; PULSE 64; O2SAT 96
[2022-12-09] MEDS: Doxycycline Monohydrate 100 MG CAPSULE PO (09:38)
[2022-12-09] MEDS: FLUoxetine HCl 20 MG CAPSULE 40 MG PO (09:38)
[2022-12-09] MEDS: cephALEXin 500 MG CAPSULE PO (09:38)
[2022-12-09] MEDS: methADONE HCl 20 MG/2 ML ORAL.CONC 40 MG PO (09:39)
[2022-12-09 14:00] VITALS: BP 131/65; PULSE 65; RESP 18; TEMP 36.7; O2SAT 95
--- NOTE | 2022-12-09 15:00 | PC.NURSE ---
Assumed care of patient at this time.
--- NOTE | 2022-12-09 15:37 | PC.NURSE ---
Patient a/ox4, ambulates independently with walker on unit, aware he will be discharged today. Currently resting in bed.
--- NOTE | 2022-12-09 15:39 | MHC.CM.ED ---
Patient remains in ER overflow. Repeat physical therapy eval no longer recommends STR. Met with patient in regards to discharge planning. Patient has a long standing history of homelessness and substance abuse. T/W explained PT findings. Patient concerned because he can't walk . T/W reiterated that he has been ambulating all around the overflow unit. List of shelters provided and information about public telephone in the waiting room. Patient voicing concern about this chronic leg wounds. Maty LOPEZ asked to see patient before discharge. Continue to monitor for d/c needs.
== END 2022-12-09 16:02 | disposition home or self-care (01) ==
PROVIDERS: Physician Assistant; Emergency Provider Internal Medicine; PCP Registered Nurse
DX: S22.32XA Fracture of one rib, left side, initial encounter for closed fracture (principal); R07.89 Other chest pain; M54.50 Low back pain, unspecified; F11.90 Opioid use, unspecified, uncomplicated; R07.81 Pleurodynia; R26.81 Unsteadiness on feet; M54.6 Pain in thoracic spine; Y04.2XXA Assault by strike against or bumped into by another person, initial encounter; Y93.9 Activity, unspecified; Y92.9 Unspecified place or not applicable; Y99.9 Unspecified external cause status; Z20.822 Contact with and (suspected) exposure to COVID-19; Z20.828 Contact with and (suspected) exposure to other viral communicable diseases; Z87.891 Personal history of nicotine dependence; Z79.899 Other long term (current) drug therapy
CPT/HCPCS: 36415; 71250; 80053; 80307; 85025; 87635; 96372; 97116; 97161; 99285; J1885

== ENCOUNTER 2023-03-08 12:44 | Outpatient (RCR) | payer MEDICARE, MEDICAID, SELFPAY | END 2023-07-04 17:00 | disposition home or self-care (01) | LOC: HO.WCC 12:44 | PROVIDERS: Visit Provider Surgery | DX: I87.311 Chronic venous hypertension (idiopathic) with ulcer of right lower extremity (principal); L97.812 Non-pressure chronic ulcer of other part of right lower leg with fat layer exposed; L97.512 Non-pressure chronic ulcer of other part of right foot with fat layer exposed; L97.312 Non-pressure chronic ulcer of right ankle with fat layer exposed; G62.9 Polyneuropathy, unspecified; F17.210 Nicotine dependence, cigarettes, uncomplicated; F11.20 Opioid dependence, uncomplicated; Z86.19 Personal history of other infectious and parasitic diseases; Z79.899 Other long term (current) drug therapy | CPT/HCPCS: 11042; 11045; 97597 ==

== ENCOUNTER 2023-03-31 06:31 | Emergency (ER) | payer MEDICARE, MEDICAID, SELFPAY ==
--- NOTE | ~2023-03-31 | CT_ITS ---
EXAMINATION: CT CERVICAL SPINE WITHOUT CONTRAST CLINICAL INFORMATION: Fall. Neck pain. COMPARISON: Previous CT of the cervical spine November 2022 TECHNIQUE: Axial images through the cervical spine without IV contrast. Sagittal and coronal reconstructions on the technologist workstation were performed. This CT examination was performed using dose optimization techniques as appropriate, variously including the following: *Automated exposure control *Adjustment of mA and/or kV according to patient size (this includes techniques or standardized protocols for targeted exams where dose is matched to indication/reason for exam; i.e. extremities or head) *Use of iterative reconstruction technique DLP: 424 mGy-cm FINDINGS: There is 4 mm anterior subluxation of C3 with respect to C4. Unchanged from prior exam. Bone alignment is otherwise normal. No fracture or dislocation. Multilevel degenerative spondylosis and degenerative disc disease, greatest at C6-C7. There is multilevel bilateral facet arthritis. There is severe left facet arthritis at C3-C4 cystic or erosive changes. There is ankylosis of the left facet joint at C2-C3. Prevertebral soft tissues are normal. There is carotid calcification. Visualized lung apices are clear. CT/CT cervical spine wo IV con IMPRESSION: No fracture or dislocation. Degenerative changes similar to November 2022 exam. Fleischner guidelines were followed.
--- NOTE | ~2023-03-31 | CT_ITS ---
EXAMINATION: CT CHEST, ABDOMEN, AND PELVIS WITH CONTRAST CLINICAL INFORMATION: 67-year-old male, status post fall with abdominal and lower back pain, ethanol abuse COMPARISON: CT chest from 12/04/2022 CT abdomen from 08/14/2022 TECHNIQUE: Multidetector volumetric CT imaging of the chest, abdomen, and pelvis was obtained after the administration of 85 mL of Omnipaque 350 intravenous contrast without immediate adverse reactions. Axial MIP volume rendering provided. Sagittal and coronal reformatted images were obtained. This CT examination was performed using dose optimization techniques as appropriate, variously including the following: *Automated exposure control *Adjustment of mA and/or kV according to patient size (this includes techniques or standardized protocols for targeted exams where dose is matched to indication/reason for exam; i.e. extremities or head) *Use of iterative reconstruction technique DLP: 795.5 mGy-cm FINDINGS: Examination is limited due to motion artifact. LUNGS: The lungs are clear with no evidence of inflammation or nodules. MEDIASTINUM: The mediastinum appears unremarkable. CORONARY ARTERY CALCIFICATION: Present PLEURA: There is no pleural effusion. No pleural mass or thickening. AXILLA: No lymphadenopathy by size criteria. There is marked bilateral gynecomastia. LIVER, GALLBLADDER, AND BILIARY TREE: Liver is enlarged revealed cirrhotic architecture with low-attenuation and nodular contour, enlarged but without masses, ductal dilatation or surrounding ascites. Unremarkable appearance of the gallbladder. PANCREAS: Pancreas is atrophic. SPLEEN: Spleen is enlarged measured 14.7 cm without evidence of trauma ADRENAL GLANDS: Unremarkable KIDNEYS AND URETERS: Evaluation of the kidneys limited due to motion but there are no obstructive uropathy is seen or definite perinephric stranding identified. Ureters are nondilated. BLADDER: Unremarkable GASTROINTESTINAL TRACT: There is small hiatal hernia surrounded by varicosity. No evidence of colitis, diverticulitis, diverticulosis. Large amount of retained feces consistent with constipation. Appendix is not seen with certainty. Mesentery is unremarkable. ABDOMINAL WALL: No significant hernia is appreciated. LYMPH NODES: No evidence of adenopathy by size criteria. VASCULAR: Aorta is not dilated. Varicosities seen around gastric cardia and hiatal hernia. PELVIC VISCERA: Unremarkable OSSEOUS STRUCTURES: There is interval healing of rib fracture on the left including ribs #10 and 11, at along the mid scapular line and 4th, 5th and 6th ribs as seen on the last examination. There is subchondral sclerosis and mild deformity of T3 and 4 in progress since previous study and most likely due to subacute compression fracture. CT/CT abdomen pelvis w IV con IMPRESSION: 1. Limited examination due to motion artifact. 2. Healing left-sided multiple ribs fractures. 3. Subacute compression fracture of T3 and T4. 4. Cirrhosis with portal hypertension. 5. Gynecomastia. 6. Constipation.
--- NOTE | ~2023-03-31 | CT_ITS ---
EXAMINATION: CT HEAD WITHOUT CONTRAST CLINICAL INFORMATION: Fall with headache COMPARISON: November 2022. TECHNIQUE: Contiguous axial imaging was performed from the skull base to vertex without intravenous administration of contrast. This CT examination was performed using dose optimization techniques as appropriate, variously including the following: *Automated exposure control *Adjustment of mA and/or kV according to patient size (this includes techniques or standardized protocols for targeted exams where dose is matched to indication/reason for exam; i.e. extremities or head) *Use of iterative reconstruction technique DLP: 780.5 mGy-cm FINDINGS: No acute hemorrhage or mass effect. Cisterns appear unremarkable. Edwards/white matter differentiation is maintained. No appreciable extra-axial collections. Mild hypodense changes of periventricular and subcortical white matter observed likely related to chronic small vessel ischemic. There is mild atrophy. Small hyperdensity in the location of the anterior communicating artery is again observed, not appearing significantly changed. Mastoids are well aerated. Skull base unremarkable. Calvarium appears intact. There is right frontal scalp swelling. CT/CT head/brain wo IV con IMPRESSION: No new hemorrhage or mass effect. Mild atrophy and change of chronic small vessel ischemic disease of white matter. Previously noted small hyperdensity in the location of the anterior to indicating artery is again observed. As noted previously, a small aneurysm is a consideration. If not previously performed, CTA or MRA of the head may be helpful toward further clarification.
[2023-03-31 06:43] VITALS: BP 120/74; PULSE 80; PULSE 83; RESP 14; TEMP 37.7; O2SAT 96; O2SAT 99; BMI 28.7
--- NOTE | 2023-03-31 06:47 | ED_ITS ---
HPI - General Adult General Chief complaint: Fall Stated complaint: backpain Time Seen by Provider: 03/31/23 06:44 Source: patient and EMS Mode of arrival: EMS Limitations: other (unreliable historian ) History of Present Illness HPI narrative: 67-year-old male presents status post fall unclear how patient fell he says he was smoking and suddenly fell, complaining of neck pain, thoracic and lumbar spine pain, numbness to lower extremities, unclear if there is urinary or bowel incontinence/retention, patient poor historian. Patient unclear how long he was on the ground for. Unclear if there was alcohol or substance abuse. Patient does report headache without vision changes or dizziness. Patient dozing off during my exam. Patient denies chest pain, shortness of breath, nausea, vomiting, tingling, saddle paresthesias Related Data Home Medications Medication Instructions Recorded Confirmed methadone 10 mg/mL oral 45 mg PO DAILY 04/11/22 11/03/22 concentrate (Methadone Intensol) diphenhydramine HCl 25 mg capsule 2 cap PO BEDTIME 07/18/22 12/04/22 (Benadryl) fluoxetine 40 mg capsule 1 cap PO DAILY 07/18/22 12/04/22 prazosin 1 mg capsule 1 cap PO BEDTIME 07/18/22 12/04/22 Previous Rx's Medication Instructions Recorded walker (Ultra-Light Rollator misc) #1 ea 04/15/22 cephalexin 500 mg capsule 500 mg PO Q12H #14 caps 10/29/22 doxycycline hyclate 100 mg capsule 100 mg PO BID #14 caps 10/29/22 ibuprofen 600 mg tablet 600 mg PO Q6H PRN pain #30 tabs 12/04/22 Allergies Allergy/AdvReac Type Severity Reaction Status Date / Time trazodone [TRAZODONE] Allergy Intermediate RESTLESS Verified 11/22/22 11:31 LEGS Review of Systems Review of Systems: Constitutional : No Weight loss, No Fever, No Chills, ENT/Mouth : No Hearing loss, No Ear Pain, No Nasal Congestion, No Sinus Pain, No Hoarseness, No sore throat, No Rhinorrhea, No Swallowing Difficulty Cardiovascular : No Chest Pain, No SOB Respiratory : No Cough, No Dyspnea Gastrointestinal : No Nausea, No Vomiting, No Diarrhea, + abdominal Pain, No Hematochezia, No Melena Genitourinary : No Dysuria, No Urinary Frequency, No Hematuria, No Urinar Incontinence, Musculoskeletal : + back pain, + neck pain Skin : No Skin Lesions, No rash Neuro : No Weakness, + Numbness, No Paresthesias, no loss of bowel or bladder incontinence, no saddle anesthesia, + headache Yes all other systems are reviewed and are negative [facility] Past Medical History Attestation statement: The following information was validated with the patient. 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 Opiate dependence Opioid use disorder Physical deconditioning Polysubstance abuse Tobacco dependence Varicose veins of right lower extremity with inflammation Venous stasis ulcer Surgical History H/O hernia repair Family History Family History Mother CAD (coronary artery disease) ESRD (end stage renal disease) Brother Liver failure Social History Social History Household Members: Other Household Members Other:: Currently residing in a rehab facility Housing: Homeless Housing Other:: Currently residing in a rehab facility Do you presently have visiting nurse or other home services: Yes Unable to assess alcohol history related to: Unknown Alcohol intake: former Patient Tobacco Use Status: Former Tobacco user Tobacco use type: Cigarette Cigarettes Per Day: 2 Years Smoked: 40 Smoked in Last 30 Days: Yes e-Cigarette/Vaping Use: Never Used Second Hand Smoke Exposure: Yes Use of substances other than those prescribed or required for medical reasons: No Substance Use Type: Heroin Advance Directives: Yes Advance Directives on File: Yes Advance Directives Date on File: 02/11/21 service: No Current occupational status: disabled Physical Exam ED Vital Signs: Vital Signs - 24 hr 03/31/23 06:43 03/31/23 06:50 03/31/23 06:50 Temperature 99.8 F 99.8 F 99.8 F Pulse Rate 83 81 79 Respiratory Rate 14 14 14 Blood Pressure 155/98 H 155/98 H Pulse Oximetry 96 94 96 Oxygen Delivery Method Room Air Room Air 03/31/23 08:24 03/31/23 09:50 Temperature 98.8 F Pulse Rate 83 80 Respiratory Rate 14 13 Blood Pressure 144/80 H 139/75 Pulse Oximetry 93 95 Oxygen Delivery Method Room Air Room Air BMI result Body Mass Index 28.7 vss Appearance: Alert.? Oriented X3.? No acute distress.?+ unkempt + bizarre affect Head: Normocephalic, atraumatic, no step-offs or deformities + small abrasion to right side of head. Eyes: Pupils equal, round and reactive to light.? Neck: Normal inspection.? Neck supple.+ TTP to cervical spine in collar CVS: Normal heart rate and rhythm.? Pulses normal.? Respiratory: No respiratory distress.? Breath sounds normal.? + TTP to left sided ribs mid axillary line throughout Abdomen: Soft and nontender.? Skin: Skin warm and dry.? Normal skin color.? Normal skin turgor.? Extremities: No lower extremity edema.? No calf ttp. Global weakness. 1+ palpable pulses to b/l LE AT,PT,DP. Diminished senation b/l to LE distally. Back: + lumbar & thoracic midline tenderness, + C-spine tenderness, full range of motion, no CVA tenderness bilaterally Neuro: Oriented X 3. Bizarre affect. Intermittently following commands. Dozi ng off during my conversation. Difficult to perform complete neurological assessment. No saddle paresthesia Course Reevaluation(s) Reevaluation #1: Will get CBC with a normocytic anemia peers to be around patient's baseline. Platelets chronically low 129 this appears to be around his baseline. Chemistry with an elevated BUN I suspect this is secondary to poor p.o. intake/dehydration. Patient's bilirubin chronically elevated 1.2 appears to be around baseline. Transaminases elevated at 2 2 1 fashion likely secondary to chronic alcohol abuse. Patient's total CPK 1504 consistent with acute rhabdomyolysis likely secondary to fall with unknown down time. BNP 213 this is patient's baseline no acute findings. Toxicology salicylates, acetaminophen ethanol negative. UA and urine toxicology pending as well as scans pending. Blood cultures, lactic acid, ESR and CRP pending Time: 08:22 Reevaluation #2: Lactic acid negative. CRP elevated, ESR also elevated. Zosyn started for wounds to lower extremities. Head CT with no new hemorrhages or mass effect mild atrophy and changes of chronic small vessel ischemic disease. Cervical spine with no acute fractures, dislocations. The acute compression fracture of T3 and T4. Healing left-sided multiple rib fractures however tenderness to palpation acutely unclear if there is any new fractures. Will run this case by [facility] trauma due to mechanism of injury and unclear story. Time: 09:55 Reevaluation #3: I did have the opportunity to discuss this case with Dr. Quinn from [facility] made him aware of compression fractures and left-sided multiple rib fractures with acute tenderness to palpation on exam. Also made him aware of patient's bizarre affect, unclear mechanism of injury fall unclear why patient fell. Also told him about patient's chronic lower extremity wounds being treated with Zosyn. He feels as though this is appropriate for transfer to [facility] with trauma consult. Patient requiring higher level of care. In he does have significant midline tenderness with associated numbness Time: 09:58 Medications Administered Generic Name Dose Route Start Last Admin Trade Name Freq PRN Reason Stop Dose Admin Piperacillin Sod/Tazobactam 50 mls @ 100 mls/hr 03/31/23 09:39 03/31/23 09:50 Sod 3.375 gm/ Sodium Chloride IV 03/31/23 10:08 100 mls/hr ONCE ONE Administration Discontinued Medications Generic Name Dose Route Start Last Admin Trade Name Freq PRN Reason Stop Dose Admin Sodium Chloride 1,000 mls @ 999 mls/hr 03/31/23 08:30 03/31/23 08:46 Ns IV 03/31/23 09:30 999 mls/hr .Q1H1M DAVID Administration Sodium Chloride 1,000 mls @ 999 mls/hr 03/31/23 08:30 03/31/23 09:46 Ns IV 03/31/23 09:30 Infused .Q1H1M DAVID Infusion Iohexol 85 ml 03/31/23 08:31 03/31/23 08:31 Iohexol 350 Mg/Ml 100 Ml Infus..Btl IV 03/31/23 08:32 85 ml ONCE ONE Administration Morphine Sulfate 4 mg 03/31/23 06:50 03/31/23 07:24 Morphine Sulfate 4 Mg/Ml Cartridge IVPUSH 03/31/23 06:51 4 mg ONCE ONE Administration Protocol Medical Decision Making Medical Decision Making [facility] Narrative: 0655 67-year-old male presents status post fall unclear how patient fell, no LOC no blood thinners. Overwhelmingly positive review of systems including headache, neck pain, abdominal pain GCS 15 NIH stroke scale 0 Physical exam patient appears unkempt, midline tenderness to the cervical, lumbar and thoracic spine throughout. Patient's cervical collar. Bizarre affect. Lungs clear. Regular rate and rhythm. Abdomen soft nontender nondistended TTP to left sided ribs mid axillary line throughout Will rule out traumatic injury to head, neck, chest, abdomen or pelvis. According to patient history which is limited there is no preceding symptoms to fall unlikely that this is PE or ACS. Will rule out rhabdomyolysis, electrolyte abnormalities, UTI and polysubstance abuse. Will also rule out alcohol intoxication. Patient's lower extremities likely bilateral chronic wounds worsening with some overlying cellulitis, will rule out osteomyelitis, I do not suspect DVT or arterial occlusion. Midline tenderness to lumbar, thoracic region and cervical region concerning for possible fracture, dislocation or traumatic subluxation. Unlikely cauda equina. Concerns for rib fx no signs of pneumothorax or flail chest Plan at this time labs, imaging, urine. Differential Diagnosis Differential Diagnoses: The differential diagnosis associated with the presentation includes Will rule out traumatic injury to head, neck, chest, abdomen or pelvis. According to patient history which is limited there is no preceding symptoms to fall unlikely that this is PE or ACS. Will rule out rhabdomyolysis, electrolyte abnormalities, UTI and polysubstance abuse. Will also rule out alcohol intoxication. Patient's lower extremities likely bilateral chronic wounds worsening with some overlying cellulitis, will rule out osteomyelitis, I do not suspect DVT or arterial occlusion. Midline tenderness to lumbar, thoracic region and cervical region concerning for possible fracture, dislocation or traumatic subluxation. Unlikely cauda equina. Concerns for rib fx no signs of pneumothorax or flail chest Admission/Observation Consideration of admission/observation: Escalation of care including admission/observation considered Consult Healthcare Provider Management of the patient was discussed with: [employer] ([facility] trauma ) Lab Data [facility] Lab Attestation statement: I reviewed the patient's lab results. 03/31/23 07:19 03/31/23 07:19 Labs: Lab Results 03/31/23 03/31/23 03/31/23 Range/Units 07:19 07:19 07:19 WBC 8.6 (4.8-10.8) X10*3/uL RBC 3.89 L (4.60-5.80) X10*6/uL Hgb 10.7 L (14.0-18.0) g/dl Hct 33.2 L (42.0-52.0) % MCV 85.3 (80.0-98.0) fL MCH 27.5 (27.0-33.0) pg MCHC 32.2 (31.0-36.0) g/dl RDW 15.0 (11.0-16.0) % Plt Count 129 L (160-400) X10*3/uL MPV 10.1 (9.4-12.4) fL Immature Gran % (Auto) 0.3 (0.0-0.4) % Neut % (Auto) 69.5 (45-73) % Lymph % (Auto) 12.9 L (20-40) % [place] % (Auto) 15.5 H (2-11) % Eos % (Auto) 1.5 (0-4) % Baso % (Auto) 0.3 (0-2) % Lymph # (Auto) 1.1 L (1.2-4.9) X10*3/uL [place] # (Auto) 1.3 H (0.1-1.2) X10*3/uL Eos # (Auto) 0.1 (0.0-0.4) X10*3/uL Baso # (Auto) 0.0 (0.0-0.2) X10*3/uL Abs Immat Gran (auto) 0.03 (0.00-0.03) X10*3/uL Absolute Neuts (auto) 6.0 (2.0-8.3) x10*3/uL Absolute Nucleated RBC 0.000 (0.0-0.012) X10*3/uL Nucleated RBC % (auto) 0.0 (0.0-0.2) /100WBC ESR (0-15) MM/HR PT (11.1-13.3) SEC INR (0.9-1.1) Sodium 139 (135-145) mmol/L Potassium 4.0 (3.3-5.1) mmol/L Chloride 109 H (96-108) mmol/L Carbon Dioxide 23 (22-29) mmol/L Anion Gap 11 L (12-20) BUN 34 H (9-16) mg/dL Creatinine 0.85 (0.5-1.4) mg/dL Estim Creat Clear Calc 93.9 Estimated GFR > 60 Random Glucose 73 (60-115) mg/dL Lactic Acid (0.5-2.0) mmol/L Calcium 9.0 (8.4-10.2) mg/dL Magnesium 1.9 (1.6-2.6) mg/dL Total Bilirubin 1.2 H (0.0-1.0) mg/dL AST 111 H (5-37) U/L ALT 57 H (0-40) U/L Alkaline Phosphatase 130 H (39-117) U/L Total Creatine Kinase 1504 H (38-174) U/L Troponin I High Sens (<3.5-35.0) ng/L C-Reactive Protein (< or = 0.50) mg/dL B-Natriuretic Peptide (<100) pg/mL Total Protein 7.9 (6.5-8.0) g/dL Albumin 3.3 L (3.5-5.0) g/dL Lipase 6 L (8-78) U/L Salicylates (15-30) mg/dL Acetaminophen (<30) mcg/mL Ethyl Alcohol < 10 mg/dL COVID-19 (JACQUE) Negative (Negative) COVID-19 Clin Com See Note 03/31/23 03/31/23 03/31/23 Range/Units 07:19 07:19 07:19 WBC (4.8-10.8) X10*3/uL RBC (4.60-5.80) X10*6/uL Hgb (14.0-18.0) g/dl Hct (42.0-52.0) % MCV (80.0-98.0) fL MCH (27.0-33.0) pg MCHC (31.0-36.0) g/dl RDW (11.0-16.0) % Plt Count (160-400) X10*3/uL MPV (9.4-12.4) fL Immature Gran % (Auto) (0.0-0.4) % Neut % (Auto) (45-73) % Lymph % (Auto) (20-40) % [place] % (Auto) (2-11) % Eos % (Auto) (0-4) % Baso % (Auto) (0-2) % Lymph # (Auto) (1.2-4.9) X10*3/uL [place] # (Auto) (0.1-1.2) X10*3/uL Eos # (Auto) (0.0-0.4) X10*3/uL Baso # (Auto) (0.0-0.2) X10*3/uL Abs Immat Gran (auto) (0.00-0.03) X10*3/uL Absolute Neuts (auto) (2.0-8.3) x10*3/uL Absolute Nucleated RBC (0.0-0.012) X10*3/uL Nucleated RBC % (auto) (0.0-0.2) /100WBC ESR (0-15) MM/HR PT 14.5 H (11.1-13.3) SEC INR 1.2 H (0.9-1.1) Sodium (135-145) mmol/L Potassium (3.3-5.1) mmol/L Chloride (96-108) mmol/L Carbon Dioxide (22-29) mmol/L Anion Gap (12-20) BUN (9-16) mg/dL Creatinine (0.5-1.4) mg/dL Estim Creat Clear Calc Estimated GFR Random Glucose (60-115) mg/dL Lactic Acid (0.5-2.0) mmol/L Calcium (8.4-10.2) mg/dL Magnesium (1.6-2.6) mg/dL Total Bilirubin (0.0-1.0) mg/dL AST (5-37) U/L ALT (0-40) U/L Alkaline Phosphatase (39-117) U/L Total Creatine Kinase (38-174) U/L Troponin I High Sens (<3.5-35.0) ng/L C-Reactive Protein (< or = 0.50) mg/dL B-Natriuretic Peptide 213 H (<100) pg/mL Total Protein (6.5-8.0) g/dL Albumin (3.5-5.0) g/dL Lipase (8-78) U/L Salicylates < 5.0 L (15-30) mg/dL Acetaminophen < 17 (<30) mcg/mL Ethyl Alcohol mg/dL COVID-19 (JACQUE) (Negative) COVID-19 Clin Com 03/31/23 03/31/23 03/31/23 Range/Units 08:42 08:42 08:42 WBC (4.8-10.8) X10*3/uL RBC (4.60-5.80) X10*6/uL Hgb (14.0-18.0) g/dl Hct (42.0-52.0) % MCV (80.0-98.0) fL MCH (27.0-33.0) pg MCHC (31.0-36.0) g/dl RDW (11.0-16.0) % Plt Count (160-400) X10*3/uL MPV (9.4-12.4) fL Immature Gran % (Auto) (0.0-0.4) % Neut % (Auto) (45-73) % Lymph % (Auto) (20-40) % [place] % (Auto) (2-11) % Eos % (Auto) (0-4) % Baso % (Auto) (0-2) % Lymph # (Auto) (1.2-4.9) X10*3/uL [place] # (Auto) (0.1-1.2) X10*3/uL Eos # (Auto) (0.0-0.4) X10*3/uL Baso # (Auto) (0.0-0.2) X10*3/uL Abs Immat Gran (auto) (0.00-0.03) X10*3/uL Absolute Neuts (auto) (2.0-8.3) x10*3/uL Absolute Nucleated RBC (0.0-0.012) X10*3/uL Nucleated RBC % (auto) (0.0-0.2) /100WBC ESR 33 H (0-15) MM/HR PT (11.1-13.3) SEC INR (0.9-1.1) Sodium (135-145) mmol/L Potassium (3.3-5.1) mmol/L Chloride (96-108) mmol/L Carbon Dioxide (22-29) mmol/L Anion Gap (12-20) BUN (9-16) mg/dL Creatinine (0.5-1.4) mg/dL Estim Creat Clear Calc Estimated GFR Random Glucose (60-115) mg/dL Lactic Acid 0.8 (0.5-2.0) mmol/L Calcium (8.4-10.2) mg/dL Magnesium (1.6-2.6) mg/dL Total Bilirubin (0.0-1.0) mg/dL AST (5-37) U/L ALT (0-40) U/L Alkaline Phosphatase (39-117) U/L Total Creatine Kinase (38-174) U/L Troponin I High Sens 16.1 (<3.5-35.0) ng/L C-Reactive Protein (< or = 0.50) mg/dL B-Natriuretic Peptide (<100) pg/mL Total Protein (6.5-8.0) g/dL Albumin (3.5-5.0) g/dL Lipase (8-78) U/L Salicylates (15-30) mg/dL Acetaminophen (<30) mcg/mL Ethyl Alcohol mg/dL COVID-19 (JACQUE) (Negative) COVID-19 Clin Com 03/31/23 Range/Units 08:42 WBC (4.8-10.8) X10*3/uL RBC (4.60-5.80) X10*6/uL Hgb (14.0-18.0) g/dl Hct (42.0-52.0) % MCV (80.0-98.0) fL MCH (27.0-33.0) pg MCHC (31.0-36.0) g/dl RDW (11.0-16.0) % Plt Count (160-400) X10*3/uL MPV (9.4-12.4) fL Immature Gran % (Auto) (0.0-0.4) % Neut % (Auto) (45-73) % Lymph % (Auto) (20-40) % [place] % (Auto) (2-11) % Eos % (Auto) (0-4) % Baso % (Auto) (0-2) % Lymph # (Auto) (1.2-4.9) X10*3/uL [place] # (Auto) (0.1-1.2) X10*3/uL Eos # (Auto) (0.0-0.4) X10*3/uL Baso # (Auto) (0.0-0.2) X10*3/uL Abs Immat Gran (auto) (0.00-0.03) X10*3/uL Absolute Neuts (auto) (2.0-8.3) x10*3/uL Absolute Nucleated RBC (0.0-0.012) X10*3/uL Nucleated RBC % (auto) (0.0-0.2) /100WBC ESR (0-15) MM/HR PT (11.1-13.3) SEC INR (0.9-1.1) Sodium (135-145) mmol/L Potassium (3.3-5.1) mmol/L Chloride (96-108) mmol/L Carbon Dioxide (22-29) mmol/L Anion Gap (12-20) BUN (9-16) mg/dL Creatinine (0.5-1.4) mg/dL Estim Creat Clear Calc Estimated GFR Random Glucose (60-115) mg/dL Lactic Acid (0.5-2.0) mmol/L Calcium (8.4-10.2) mg/dL Magnesium (1.6-2.6) mg/dL Total Bilirubin (0.0-1.0) mg/dL AST (5-37) U/L ALT (0-40) U/L Alkaline Phosphatase (39-117) U/L Total Creatine Kinase (38-174) U/L Troponin I High Sens (<3.5-35.0) ng/L C-Reactive Protein 3.53 H (< or = 0.50) mg/dL B-Natriuretic Peptide (<100) pg/mL Total Protein (6.5-8.0) g/dL Albumin (3.5-5.0) g/dL Lipase (8-78) U/L Salicylates (15-30) mg/dL Acetaminophen (<30) mcg/mL Ethyl Alcohol mg/dL COVID-19 (JACQUE) (Negative) COVID-19 Clin Com Independent Interpretation I performed an independent interpretation of an: EKG (Intra-ocular rate of 83, LA normal, QRS normal, QT/QTC slightly prolonged, no ST elevations or inversions concerning for acute ischemia.) and CT Scan (Subacute compression deformities of thoracic spine. And old healing fractures however I a.m. concerned for possible subacute fractures or acute) Radiology Impression Discussion of test interpretation with radiology: I have reviewed the radiologist's reading. Core Measures AMI core measures followed: Yes Measure exclusions: not indicated Critical Care Time Critical Care Time Critical Care Time: Yes Total Critical Care Time: 45 Attestation: I attest to this time spent taking care of the patient, obtaining history, physical, reviewing labs, imaging, speaking to my attending, speaking to specialist. Discharge Plan Discharge Clinical Impression: Fall, Rhabdomyolysis, Dehydration, Gangrene, Fracture, ribs Patient Disposition: [facility] Transfer Details: Transfer [facility] trauma consult. Prescriptions: No Action fluoxetine 40 mg capsule 1 cap PO DAILY prazosin 1 mg capsule 1 cap PO BEDTIME diphenhydramine HCl [Benadryl] 25 mg capsule 2 cap PO BEDTIME methadone [Methadone Intensol] 10 mg/mL Concentrate 45 mg PO DAILY (DME) Ultra-Light Rollator Misc See Rx Instructions .Route Qty: 1 0RF Rx Instructions: As directed ibuprofen 600 mg tablet 600 mg PO Q6H PRN (Reason: pain) Qty: 30 0RF cephalexin 500 mg capsule 500 mg PO Q12H Qty: 14 0RF doxycycline hyclate 100 mg capsule 100 mg PO BID Qty: 14 0RF
[2023-03-31 06:50] VITALS: BP 155/98; PULSE 79; PULSE 81; RESP 14; TEMP 37.7; O2SAT 94; O2SAT 96
--- NOTE | 2023-03-31 06:50 | ECG_ITS ---
Test Reason : FALL Blood Pressure : / mmHG Vent. Rate : 083 BPM Atrial Rate : 083 BPM P-R Int : 170 ms QRS Dur : 096 ms QT Int : 406 ms P-R-T Axes : 058 043 044 degrees QTc Int : 477 ms Normal sinus rhythm Normal ECG When compared with ECG of 18-JUL-2022 10:09, No significant change was found Referred By: Jayne Barboza Electronically Signed By:THIAGO IBARRA
--- OUTSIDE RECORDS SUMMARY | 2023-03-31 07:17 | XMS_ITS | Continuity of Care Document ---
Author Name Unknown Organization [facility] ter Address [address] [place] [id number] Care Team Providers Care Tariff Counsel Name Role Phone Brandee Grey MD Primary Care Physician Encounter [facility] – [place] Date(s): 12/12/22 - 12/20/[address] [id number]- Encounter Diagnosis Syncope(Final) - 12/11/22 Cellulitis, leg(Final) - 12/11/22 Cellulitis, leg(Final) - 12/12/22 Discharge Disposition: A-D/C Home Attending Physician: Anabela Gordon MD Admitting Physician: Ludwin MCKEON, Lavon Rodriguez Referring Physician: Not on Staff, Referring MD Allergies, Adverse Reactions, Alerts Substance Reaction Severity Status traZODone Active Immunizations Given and Recorded Vaccine Date Status Refusal Reason SARS-CoV-2 (COVID-19) mRNA BNT-162b2 vac 02/24/21 Recorded Not Given Vaccine Date Status Refusal Reason tetanus/diphtheria/pertussis, acel(Tdap) 1 04/17/22 Not Given Patient Refuses SARS-CoV-2 mRNA ([id number]) vax 03/25/22 Not Given Patient Refuses 1Result Comment: pt refuses adimently Medications acetaminophen 325 mg oral tablet 650 mg, By Mouth, 2 times a day, PRN, # 120 tablet, Refills 1, Tot. Refills 1, Acute 04/19/23 9:00:00 EDT, Pain , Moderate, 12/20/22 12:05:00 EDT, Route to Pharmacy Electronically, [facility], Partial fill upon patient request if the pre... Start Date: 12/20/22 Stop Date: 04/19/23 Status: Ordered FLUoxetine 40 mg oral capsule 1 capsule = 40 mg, By Mouth, Daily, # 30 capsule, 1 Refills, Maintenance, 12/20/22 12:05:00 EDT, Capsule, [facility], Partial fill upon patient request if the prescription is for a schedule II opioid drug., 178, cm, 12/20/22 7:27:00 EDT,... Start Date: 12/20/22 Stop Date: 04/20/23 Status: Ordered hydrOXYzine pamoate 25 mg oral capsule 1 capsule = 25 mg, By Mouth, 4 times a day, PRN for anxiety, # 120 capsule, 1 Refills, Acute 03/30/23 9:00:00 EDT, 12/20/22 12:05:00 EDT, Capsule, [facility], Partial fill upon patient request if the prescription is for a schedule II opi... Start Date: 12/20/22 Stop Date: 03/30/23 Status: Ordered Methadone = 30 mg, Daily, 0 Refills, Maintenance, 07/01/22 14:36:00 EST, Partial fill upon patient request ifthe prescription is for a schedule II opioid drug. Start Date: 07/01/22 Status: Ordered Methadone Tablet 30 mg, Tablet, By Mouth, 12/20/22 9:00:00 EDT Start Date: 12/20/22 Stop Date: 12/20/22 Status: Completed prazosin 1 mg oral capsule 1 mg, 1, capsule, By Mouth, Daily at bedtime, # 30 capsule, Refills 1, Tot. Refills 1, Maintenance,12/20/22 12:06:00 EDT, Route to Pharmacy Electronically, [facility], Partial fill upon patient request if the prescription is for a sched... Start Date: 12/20/22 Status: Ordered prazosin 1 mg oral capsule 1 mg, Capsule, By Mouth, Hold for: SBP <110, 12/19/22 21:00:00 EDT Start Date: 12/19/22 Stop Date: 12/19/22 Status: Completed Problem List Condition Confirmation Course Effective Dates Status Health St atus Informant Lower extremity cellulitis Confirmed Active COVID-19 Confirmed Active CANDI (generalized anxiety disorder) Confirmed Active ZAY (acute kidney injury) Confirmed Active Leukocytosis Confirmed Active MDD (major depressive disorder) Confirmed Active Sepsis Confirmed Active Results Orders for Microbiology Reports Name Date Blood Culture 12/11/22 Blood Culture #2 12/11/22 Microbiology Reports TEST:Blood Culture, Second Order STATUS:Auth (Verified) BODY SITE: SOURCE:Blood COLLECTED DATE/TIME:12/11/22 2:18 PM Blood Culture, Second Order SPECIMEN DESCRIPTION : BLOOD NO SITE SPECIAL REQUESTS : NONE CULTURE : NO GROWTH 5 DAYS. REPORT STATUS : FINAL 12/16/2022 TEST:Blood Culture STATUS:Auth (Verified) BODY SITE: SOURCE:Blood COLLECTED DATE/TIME:12/11/22 1:40 PM Blood Culture SPECIMEN DESCRIPTION : BLOOD HIDE SPECIAL REQUESTS : NONE CULTURE : NO GROWTH 5 DAYS. REPORT STATUS : FINAL 12/16/2022 Radiology Reports * Exam Date Time Procedure Performing Provider Status 12/16/22 1:39 PM Chest Portable Toy Schaffer Notes: (Chest Portable) Reason For Exam: pain;Other: RESULT: Chest Portable Chest Portable Reason: Pain. Clinical Question(s): Rib fracture COMPARISON: 03/23/2022, 03/22/2018 FINDINGS: LINES AND TUBES: None. LUNGS AND PLEURA: Mild bibasilar atelectasis, otherwise the lungs are clear. No focal consolidation. Normal pulmonaryvascularity. No pleural effusion. No pneumothorax. HEART, MEDIASTINUM AND MARCUS: Mild prominence of the cardiac silhouette, which may be exacerbated by image acquisition technique. Normal mediastinal and hilar contour. BONES AND SOFT TISSUES: Age-indeterminate, slightly displaced fracture of the right posterior fifth rib, new from 03/23/2022. IMPRESSION: Right posterior fifth rib fracture, new from 03/23/2022. I have personally reviewed the images and I agree with this report. WSN: [id number] Ordering Physician: Alexa Haines Dictated By: Sushil Grady MD Dictated Date/Time: 12/16/22 2:33 pm Reviewed By: Regis Page MD, V Signed By: Regis Page MD, V Signed Date/Time: 12/16/22 2:38 pm Transcribed By: ANGELICA Transcribed Date/Time: 12/16/22 2:29 pm ADDENDUM: Chest Portable The initial report identified a right posterior fifth rib fracture. The report should read a minimally displaced LEFT posterior fifth rib fracture. I have personally reviewed the images and I agree with this report. WSN: [id number] Ordering Physician: Alexa Haines Dictated By: Sushil Grady MD Dictated Date/Time: 12/16/22 3:02 pm Reviewed By: Regis Page MD, V Signed By: Regis Page MD, V Signed Date/Time: 12/16/22 3:07 pm Transcribed By: ANGELICA Transcribed Date/Time: 12/16/22 2:59 pm * Exam Date Time Procedure Performing Provider Status 12/16/22 1:39 PM Ankle 2 Views Right Toy Schaffer (Verified) Notes: (Ankle 2 Views Right) Reason For Exam: Pain RESULT: Ankle 2 Views Right Ankle 2 Views Right Reason: Pain; Clinical Question(s): Fracture COMPARISON: 03/23/2022 FINDINGS: No evidence of acute or healing fracture or bone lesion. There appears to be chronic smooth periosteal reaction involving both the distal tibia and fibula which is similar to the previous exam; correlate for venous stasis. Mild calcaneal spurring. Intact ankle mortise and ankle done. Diffuse soft tissue swelling. IMPRESSION: No acute osseous findings. WSN: [id number] Ordering Physician: Alexa Haines Dictated By: Viviana Lowry MD Dictated Date/Time: 12/16/22 2:36 pm Reviewed By: Viviana Lowry MD Signed By: Viviana Lowry MD Signed Date/Time: 12/16/22 2:36 pm Transcribed By: ANGELICA Transcribed Date/Time: 12/16/22 2:33 pm * Exam Date Time Procedure Performing Provider Status 12/12/22 9:09 PM US Doppler Ext Lower Venous Bilat Tessa Carr; Jennifer (Verified) Notes: (US Doppler Ext Lower Venous Bilat) Reason For Exam: Swelling Extremities RESULT: US Doppler Ext Lower Venous Bilat US Doppler Ext Lower Venous Bilat Reason: Swelling Extremities; Clinical Question(s): Thrombosis COMPARISON: None IMAGING TECHNIQUE: Ultrasound of the veins from the groin through the calf was performed using grayscale, color, and spectral Doppler ultrasound assessing for complete compressibility and normal flowcharacteristics. FINDINGS: RIGHT LOWER EXTREMITY: Common femoral vein: Patent. No thrombosis. Femoral vein: Patent. No thrombosis. Popliteal vein: Patent. No thrombosis. Gastrocnemius veins: The visualized portions are patent without evidence of thrombosis. Peroneal veins: The visualized portions are patent without evidence of thrombosis. Posterior tibial veins: The visualized portions are patent without evidence of thrombosis. LEFT LOWER EXTREMITY: Common femoral vein: Patent. No thrombosis. Femoral vein: Patent. No thrombosis. Popliteal vein: Patent. No thrombosis. Gastrocnemius veins: The visualized portions are patent without evidence of thrombosis. Peroneal veins: The visualized portions are patent without evidence of thrombosis. Posterior tibial veins: The visualized portions are patent without evidence of thrombosis. OTHER FINDINGS: Fluid collection the right popliteal fossa measuring 3.4 x 1.1 x 2.5 cm. Fluid collection in the left popliteal fossa measuring 4.1 x 0.8 x 1.9 cm. IMPRESSION: No evidence of deep venous thrombosis. Bilateral Foy cysts. WSN: [id number] Ordering Physician: Rosalino Raymond Dictated By: iWsam Carpio MD Dictated Date/Time: 12/12/22 9:27 pm Reviewed By: Wisam Carpio MD Signed By: Wisam Carpio MD Signed Date/Time: 12/12/22 9:27 pm Transcribed By: ANGELICA Transcribed Date/Time: 12/12/22 9:24 pm Vital Signs Most recent to oldest [Reference Range]: 1 2 3 Height 178 cm (12/20/22 7:27 AM) 178 cm (12/20/22 12:54 AM) 178 cm (12/19/22 7:54 PM) Weight 82 kg (12/12/22 10:20 AM) Oxygen Saturation [94-100 %] 94 % (12/20/22 7:27 AM) 95 % (12/20/22 12:54 AM) 94 % (12/19/22 7:54 PM) Pulse Rate [55-90 bpm] 64 bpm (12/20/22 7:27 AM) 73 bpm (12/20/22 12:54 AM) 72 bpm (12/19/22 7:54 PM) Body Mass Index [18.5-24.99 kg/m2] 25.88 kg/m2 *H* (12/12/22 10:20 AM) Blood Pressure [90-138/55-84 mm Hg] 104/51mm Hg (12/20/22 7:27 AM) 106/50mm Hg (12/20/22 12:54 AM) 118/73mm Hg (12/19/22 8:35 PM) Respiratory Rate [16-30 br/min] 16 br/min (12/20/22 10:00 AM) 16 br/min (12/20/22 8:14 AM) 18 br/min (12/20/22 7:27 AM) Temperature [96.8-100.4 DegF] 98.1 DegF (12/20/22 7:27 AM) 98.0 DegF (12/20/22 12:54 AM) 97.8 DegF (12/19/22 7:54 PM) Mode of Delivery (Oxygen) Room air (12/20/22 7:27 AM) Room air (12/20/22 12:54 AM) Room air (12/19/22 7:54 PM) Blood pressure sites Arm, left (12/20/22 7:27 AM) Arm, left (12/20/22 12:54 AM) Arm, left (12/19/22 7:54 PM) Temperature Route Oral (12/20/22 7:27 AM) Oral (12/20/22 12:54 AM) Oral (12/19/22 7:54 PM) Dry Weight 82 kg (12/12/22 10:20 AM) History and physical note * John MCKEON, Krzysztof: MODIFY, MODIFY, PERFORM Event Display: History and Physical Hospital Authored Date: Patient: ??RENEE CORNELIUS ? Age:??66 Years?Sex:??Male?:??1955?? Chief Complaint/Reason for Consultation pt found lying on the side of the road, states he fell. fell last week and has broken ribs also admitted to 1 bag each of cocaine and heroin History of Present Illness 66-year-old male with past medical history significant for opioid use disorder on methadone 30 mg daily from [facility] and generalized anxiety disorder + MDD.?? He currently ambulates with a walker. 2 months ago, he was treated for leg cellulitis with Keflex + doxycycline. ??He has not been to??a provider since then On the day of admission, the police found him on the side of the road.?? Patient notes that he could not find his bus ticket and he was not allowed to be on the bus.?? Patient claims that he fell on the ground after feeling dizzy and lightheaded. He admitted to 1 bag each of cocaine and heroin EMS was activated. ?? ER course: Vital signs: Normal Exam: Appears intoxicated, disheveled, crying because of his brother Right lower extremity: Erythema with swelling and skin breakdown ?? Work-up: EKG: Normal sinus rhythm Nonspecific T wave abnormality Abnormal ECG When compared with ECG of 23-MAR-2022 10:18, Inverted T waves have replaced nonspecific T wave abnormality in Anterior leads ? CBC: No leukocytosis, normocytic anemia, mild thrombocytopenia Chemistry: Hyponatremia Lactate: 2.3 = elevated High-sensitivity troponin: 14 TSH normal COVID-19: Negative Blood cultures: Pending x2 ?? Interventions performed: LR: 1 L bolus Zosyn + vancomycin ?? On my evaluation in the emergency room Vital signs: Normal Patient wishes to be left alone so that he can sleep.?? He did allow me to examine him. Review of Systems Constitutional: No weight loss. ??Positive tactile fever, chills?? HEENT: No visual loss. No hearing loss, congestion, runny nose , sore throat. Skin: Positive new wounds Cardiovascular: No chest discomfort. No palpitations. Respiratory: No shortness of breath, cough. Gastrointestinal: No nausea, vomiting or diarrhea. No abdominal pain or blood in stool. Genitourinary: No burning micturition. No urinary frequency or incontinence. Musculoskeletal: No muscle pain, back pain, joint pain or stiffness. Endocrine: No reports of sweating. No cold or heat intolerance. No polyuria or polydipsia. Hematologic: No bleeding or bruising. Immunologic/Allergic: No itchy eyes/Itchy nose/Sneezing/Watery eyes Lymphatics: No enlarged lymph nodes. Neurologic: No headache, unilateral weakness, numbness or tingling in the extremities. No change inbowel or bladder control. Psychiatric: No depression or anxiety. Objective ? Vital Signs?? Temperature: 98.7 DegF (12/11/22 20:07:00) Temperature Route: Oral (12/11/22 20:07:00) Pulse Rate: 80 bpm (12/11/22 20:07:00) Respiratory Rate: 20 br/min (12/11/22 20:07:00) Systolic Blood Pressure: 95 mm Hg (12/11/22 20:07:00) Diastolic Blood Pressure: 58 mm Hg (12/11/22 20:07:00) Blood pressure sites: Arm, left (12/11/22 20:07:00) Mean Arterial Pressure: 79 mm Hg (12/11/22 13:03:00) Pulse Pressure: 37 mm Hg (12/11/22 20:07:00) Oxygen Saturation: 95 % (12/11/22 20:07:00) Mode of Delivery (Oxygen): Room air (12/11/22 20:07:00) Early Warning Score: 7 (12/11/22 20:07:51) ? Physical Exam GENERAL: Unkempt, mildly??ill-appearing, no acute cardiorespiratory distress HEAD: Normocephalic, atraumatic. EYES: No conjunctival injection. No scleral icterus.?? [place] conjunctiva EARS: No tenderness, no discharge. NOSE: No asymmetry. MOUTH AND THROAT: No oral thrush. ??Dry mucous membranes NECK: No JVP elevation, No masses. Range of motion full. HEART: Regular rate ??and ??regular rhythm, no murmurs, no clicks, no rubs , no gallops. CHEST: Symmetric with respirations. No accessory muscle use, No wheezes, crackles. ABDOMEN: Normoactive bowel sounds. No tenderness or guarding. No increase in liver or spleen size. No masses palpable. GENITOURINARY: No CV angle tenderness. No suprapubic tenderness. No Wagoner catheter in place.?? Rectal exam is deferred. MUSCULOSKELETAL: Range of motion full in all extremities , no obvious deformity , no increased warmth , no effusion?? VASCULAR: All pulses brisk and equal, Capillary refill time < 2sec LYMPHATIC: No cervical, axillary or inguinal adenopathy. Skin: Right lower extremity with both old and new wounds.?? Positive diffuse erythema and warmth compared to the left side.?? Compartments intact.?? Negative streaking.?? Negative purulent discharge. NEUROLOGIC: No deficit on gross motor and sensory exam Alert and oriented to person, place, time, and situation Psychiatric: No delusions, hallucinations, SI or HI Assessment/Plan Assessment:??66-year-old male with past medical history significant for opioid use disorder on methadone 30 mg daily from [facility] and generalized anxiety disorder + MDD. He currently ambulateswith a walker.?? Patient admits to using drugs. ??On the day of admission, the police found him on the side of the road.?? He was noted to have cellulitis and was brought to the emergency room. ?? Cellulitis, leg (L03.119):?? Admitted to the general medical floor Rule out bacteremia Follow clinically as well as trend inflammatory markers?? Follow blood cultures drawn in the emergency room We will cover with vancomycin dosed renally based on our pharmacy protocol Most likely organisms are skin cristy penetrating through open wounds on the lower extremity ?? Hyponatremia (E87.1):? Appears dehydrated Hydrate with normal saline at 75 MLS per hour ?? Intoxication by drug (F19.929):? Check CPK Check alcohol, cocaine, opiate Hydration as above?? PRN hydroxyzine PRN lorazepam as needed Restart methadone 30 mg daily. ?? CANDI (generalized anxiety disorder) (F41.1):? MDD (major depressive disorder) (F32.9): ??Continue hydroxyzine, fluoxetine, prazosin ?? VTE Prophylaxis:? Ordered based on our VTE prophylaxis guidelines ?VTE Prophylaxis Assessment:??VTE Prophylaxis Ordered ?? Code Status:??Full code ?Order Code Status:??Code Status Ordered ?? Ongoing Medical Necessity:??Systemic antimicrobials IV fluid hydration ?? Discharge Planning:? Anticipate at least 2 night hospital stay ? The above document was completed by performing history, physical examination, reconciling multiple medications, review of laboratory and imaging All assessment and plan were discussed with the patient and requested feedback with attempts to maximize understanding for the care provided. This required approximately 50 minutes to complete. ? Histories Allergies Allergies ?(Active and Proposed Allergies Only) traZODone? (Severity: Unknown severity, Onset: Unknown) ? Past Medical History/Problem List Active Problems??(8) ZAY (acute kidney injury) COVID-19 CANDI (generalized anxiety disorder) Leukocytosis Lower extremity cellulitis MDD (major depressive disorder) Sepsis Underweight ? Past Surgical History No surgery history documented. ? Social History Positive for substance use Positive alcohol use Positive tobacco use ? Family History No premature coronary artery disease ? Medications Home Medications DiphenhydrAMINE (Benadryl 25 mg oral tablet)?50?Milligram?2?tab(s)?By Mouth?Dailyat Bedtime?as needed?as needed for insomnia Fluoxetine (FLUoxetine 40 mg oral capsule)?1?capsule?40?Milligram?By Mouth?Daily HydrOXYzine (hydrOXYzine pamoate 25 mg oral capsule)?1?capsule?25?Milligram?By Mouth?4 times a day?as needed?for anxiety Ibuprofen (ibuprofen 600 mg oral tablet)?600?Milligram?1?tablet?By Mouth?4 times a day?as needed?for pain Methadone?45?Milligram?Daily Nicotine (nicotine 21 mg/24 hr transdermal film, extended release)?1?patch(es)?Topically?Daily Prazosin (prazosin 1 mg oral capsule)?1?Milligram?1?capsule?By Mouth?Daily at bedtime ? Results ?? Test Name Test Result Date/TimeWBC 9.1 k/mm3 12/11/2022 13:40 EDT Hgb 10.3 Gm/dL (Low) 12/11/2022 13:40 EDT Hct 31.7 % (Low) 12/11/2022 13:40 EDT Platelet Count 111 k/mm3 (Low) 12/11/2022 13:40 EDT APTT 33.5 seconds (High) 12/11/2022 13:40 EDT Sodium 131 mmol/L (Low) 12/11/2022 13:40 EDT Potassium 3.7 mmol/L 12/11/2022 13:40 EDT Chloride 98 mmol/L 12/11/2022 13:40 EDT Bicarbonate Level 23 mmol/L 12/11/2022 13:40 EDT Anion Gap 10 12/11/2022 13:40 EDT Glucose Level 123 mg/dL (High) 12/11/2022 13:40 EDT BUN 33 mg/dL (High) 12/11/2022 13:40 EDT Creatinine-Blood 1.0 mg/dL 12/11/2022 13:40 EDT Estimated GFR Creatinine 89 ML/MIN/1.73 M2 12/11/2022 13:40 EDT Calcium 8.7 mg/dL 12/11/2022 13:40 EDT Magnesium 1.8 mg/dL 12/11/2022 13:40 EDT Lactate 2.3 mmol/L (High) 12/11/2022 13:40 EDT High Sensitivity Troponin (HSTnT) 40 ng/L (High) 12/11/2022 13:40 EDT TSH 1.95 uIU/mL 12/11/2022 13:40 EDT COVID-19 by RT-PCR NEGATIVE 12/11/2022 14:05 EDT EKG study * Event Display: EKG Authored Date: * Event Display: ECG 12-Lead Authored Date: Please click on pdf link to open report * Event Display: ECG 12-Lead Authored Date: Ventricular Rate: 88 BPM Atrial Rate: 88 BPM P-R Interval: 148 ms QRS Duration: 88 ms Q-T Interval: 376 ms QTC Calculation(Bazett): 454 ms P Emerson: 39 degrees R Emerson: 38 degrees T Emerson: 19 degrees Normal sinus rhythm Nonspecific T wave abnormality Abnormal ECG When compared with ECG of 23-MAR-2022 10:18, Inverted T waves have replaced nonspecific T wave abnormality in Anterior leads Confirmed by DEE LE MD ([id number]) on 12/14/2022 6:47:56 AM [place]: DEE LE MD Heart * Event Display: Echocardiogram - Complete Authored Date: [id number] Transthoracic Echocardiography Report (TTE) Patient Demographics Patient Name RENEE CORNELIUS Date of Study 12/13/2022 Corporate Gender Male Facility Race Ethnicity or Date of 1955 Height: 70.08 inches Age 66 year(s) Weight: 127.87 pounds Accession Number [id number] BSA: 1.73 m2 Room Number [id number] BMI: 18.31 kg/m2 Referring Physician NURY Keller Interpreting Guilherme Mackey MD Physician Heavy Duty Diesel Mechanic Charles Moreno RDCS Indications Syncope. Clinical History IVDU Hep C ZAY Study Data Type of Study TTE procedure:Echo Complete-Doppler, Colorflow, M-Mode. Study Date12/13/2022 Start Time: 10:43 AM Study Location: [facility] – [place] Adult Echo Study Status: Echo lab Patient Status: Routine Technical Quality: Adequate Blood Pressure:133/64 mmHg EKG: Normal sinus rhythm HR: 62 bpm 2D Measurements LV Diastolic Dimension: 5.27 cm LV Systolic Dimension: 3.7 cm LV Septum Diastolic: 0.9 cm LV PW Diastolic: 0.9 cm AO Root Dimension: 3.7 cm LA Dimension: 4.7 cm LA ESV (BP):96.62 ml LVOT Stroke Volume: 113.22 ml LA ESV Index: 56 ml/m2 Stroke Volume Index65.45 ml/m2 LVOT: 2.25 cm Cardiac Index:4.06 l/min/m2 Doppler Measurements AV Peak Velocity: 370.56 cm/s MV Peak E-Wave: 81 cm/s AV Peak Gradient: 54.93 mmHg MV Peak A-Wave: 59.1 cm/s AV Mean Gradient: 34.41 mmHg MV E/A Ratio: 1.37 AV VTI:93.74 cm MV P1/2t: 61 msec LVOT Peak Velocity: 131 cm/s LVOT VTI28.49 cm MV Deceleration Time: 210 msec AV Area (Continuity):1.21 cm2 MV Area (PHT): 3.61 cm2 TR Velocity:279.62 cm/s PV Peak Velocity: 126 cm/s TR Gradient:31.27 mmHg PV Peak Gradient: 6.35 mmHg E' Septal Velocity: 10.1 cm/s E' Lateral Velocity: 10.3 cm/s E/Med E':[id number] E/Lat E':[id number] Cardiac Anatomy Left Ventricle/Interventricular Septum The left ventricle is mildly dilated. Left ventricular wall thickness is normal. The LV systolic function is vigorous . The left ventricular ejection fraction is 65-75 %. There are no regional wall motion abnormalities. Left ventricular filling pressures are indeterminate. Left Atrium/Interatrial Septum The left atrium is severely dilated. Aortic Valve The aortic valve is is poorly visualized. The aortic valve appears moderately to severely calcified. There is moderate aortic stenosis. The mean gradient is 34 mmHg. The valve area is 1.21 cm2. There is no aortic regurgitation. Mitral Valve There is mild mitral annular calcification. The mitral valve appears mildly thickened. The mitral valve opening is normal. There is trivial mitral regurgitation. The mitral valve chordal apparatus is mildly thickened. There is no significant mitral stenosis. Aorta The aortic root is at the upper limit of normal. The ascending aorta is not well visualized. Right Ventricle The right ventricle is normal in size and function. Right Atrium The right atrium is normal in size. Pulmonic Valve The pulmonic valve is poorly visualized. Tricuspid Valve The tricuspid valve is grossly normal. There is mild tricuspid valve regurgitation. Pumonary Artery The pulmonary artery systolic pressure estimation is within normal limits. Venous Structures There is systolic blunting of pulmonary venous flow. The inferior vena cava appears normal. Pericardium/Extracardiac There is no significant pericardial effusion. Summary The left ventricle is mildly dilated. Left ventricular wall thickness is normal. The LV systolic function is vigorous . The left ventricular ejection fraction is 65-75 %. There are no regional wall motion abnormalities. Left ventricular filling pressures are indeterminate. The left atrium is severely dilated. The aortic valve is is poorly visualized. The aortic valve appears moderately to severely calcified. There is moderate aortic stenosis. The mean gradient is 34 mmHg. The valve area is 1.21 cm2. There is no aortic regurgitation. There is mild mitral annular calcification. The mitral valve appears mildly thickened. The mitral valve opening is normal. There is trivial mitral regurgitation. The mitral valve chordal apparatus is mildly thickened. There is no significant mitral stenosis. The right ventricle is normal in size and function. Comparison Comparison is made to the study of June 14, 2020. There is moderate aortic stenosis. The left atrium is severely dilated. Signature * Event Display: Echocardiogram - Complete Authored Date: Cardiology * Event Display: Cardiac Rhythm Strips Authored Date: Hospital Progress note * Danna De Luna RN: PERFORM, SIGN, VERIFY Event Display: Progress Note Hospital Authored Date: Patient: RENEE CORNELIUS Age: 67 years Sex: Male : 1955 Associated Diagnoses: None Author: Danna De Luna RN Findings Problem Related to Alteration in Integumentary : Alteration in Integumentary/new 2022 16:00 EDT Alteration in Integumentary Related to Cellulitis Goals & Outcomes, Integumentary Nutritional intake is adequate for metabolic needs, Pt will maintain adequate fluid & nutritional balance, Pt will maintain intact skin integrity Interventions, Integumentary Collaborate w/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 physician or another doctor is recommended, it is important for you to keep the appointment. Call your primary care physician or return to the Emergency Department immediately if your condition worsens, fails to improve, or new symptoms develop. If you need to find a doctor, you can call [facility] for a referral at [phone] or toll free at [phone]) or log in to [email or web address].. ?? You can view and manage your care through the patient portal or by using a health care vernon of your choosing. [employer] is a website that allows you to securely view your medical information including your hospital discharge summary, office visit summaries, medications and follow-up visits. You can also request appointments, renew medications, and request access to your medical information using a health care vernon of your choosing, or just ask a question. You can enroll at [email or web address] or register during your next office visit. You have been discharged from [facility], Patient Care Unit: W3. If you have any questions regarding these instructions after you leave, please call us and we will be happy to assist you. [facility] Your Care Team Attending Physician Evan MCKEON, Anabela Eid Discharging Providers Zaki LOPEZ, Alexa Washburn Reason for Your Visit pt found lying on the side of the road, states he fell. fell last week and has broken ribs also admitted to 1 bag each of cocaine and heroin Your Diagnosis Hyponatremia Intoxication by drug CANDI (generalized anxiety disorder) MDD (major depressive disorder) General medical Tests Performed Below is a partial list of the tests performed during your hospitalization. You may have had other tests and procedures not included in this list. Please discuss all test results with your provider. Basic Metabolic Panel BUN C-REACTIVE PROTEIN CBC CBC w/ Differential Cocaine Urine Screen COVID-19 (Novel Coronavirus), Rapid PCR CPK Total Only Creatinine CRP DIFFERENTIAL Electrolytes ESR ETHANOL Glucose Level High??Sensitivity??Troponin T Lactic Acid Level Magnesium Level Mg Level Opiate Screen Urine Phosphorus Level PTT SEDIMENTATION RATE,AUTOMATED TSH with T4 Reflex (Adults Only) Ankle 2 Views Right Doppler Ext Lower Venous Bilat (US) Portable Chest Primary Care Provider Brandee Grey MD Advance Directive . Discharge Vitals Temperature: 98.1 DegF Height: 178 cm Pulse Rate: 64 bpm Weight: 82 kg Respiratory Rate: 16 br/min Body Mass Index:??25.88 kg/m2??High Systolic Blood Pressure: 104 mm Hg Body surface area: 2.01 Diastolic Blood Pressure:??51 mm Hg??Low ?? Oxygen Saturation: 94 % ?? Studies Pending All tests and labs ordered during this hospital stay have been completed unless listed below. Please discuss all pending results with your provider listed above in these instructions. ?? Hold Lavender Tube (BB) What to do next Instructions From Your Doctor You were seen and evaluated at [facility] for cellulitis (skin infection) as well as passing out (syncope). You are now doing much better and are ready for discharge. You will be placed with friends of the homeless who can help you with your housing insecurity and provider [facility]! It was a pleasure caring for you, please email me when you can to let me know how you are doing. God bless you and I wish you all the best! Discharge Orders Diet:??Regular Diet Activity:??as tolerated Code Status:??Full Condition:??Good Prognosis:??Good You Need to Schedule the Following Appointments Follow Up with??Brandee Grey MD When:??Within 3-5 day: call to discuss follow up visit Why: Be sure to call your primary care provider when you are able to to make an appointment to follow up after this hospitalization and to keep up with your general health. Where: [address] [place] [address]- Discharge Medications RENEE CORNELIUS :1955 Visit Date:12/12/2022 Medications: Please continue your medications until treatment is completed or stopped by your provider. Medications not listed below should be discontinued. Discuss any questions related to medications with your provider. What How Much When Instructions Next Dose New Acetaminophen (acetaminophen 325 mg oral tablet) 650 Milligram Oral Twice a day as needed for Pain , Moderate Refills: 1 Pickup at [facility] 3 no dose given today Changed Methadone 30 Milligram Daily 12/21 Changed Prazosin (prazosin 1 mg oral capsule) 1 capsule Oral Daily at Bedtime Pickup at [place] [address] 12/20 Unchanged Fluoxetine (FLUoxetine 40 mg oral capsule) 1 capsule Oral Daily Pickup at [place] [address] 12/21 Unchanged HydrOXYzine (hydrOXYzine pamoate 25 mg oral capsule) 1 capsule Oral 4 times a day as needed for for anxiety Pickup at [facility] 3 no dose given today Pharmacy Information [facility] 3: [address], [place] [id number] [phone] ?? What How Much When Comments Stop Taking DiphenhydrAMINE (Benadryl 25 mg oral tablet) 2 tab(s) Oral Daily at Bedtime as needed for as needed for insomnia Stop Taking Ibuprofen (ibuprofen 600 mg oral tablet) 1 tab(s) Oral 4 times a day as needed for for pain Stop Taking Nicotine (nicotine 21 mg/ 24 hr transdermal film, extended release) 1 patch(es) Topically Daily Test Results Below is a partial list of the most recent Laboratory test results done prior to this discharge. You may have had other tests and procedures not included in this list. Please discuss all test resultswith your provider. Est Creatinine Clearance - 83.57 mL/min (2022) Basic Metabolic Panel (12/13/2022) ???Sodium - 141 mmol/L???Potassium - 4.1 mmol/L???Chloride - 110 mmol/L???Bicarbonate Level - 26 mmol/L???Anion Gap - 5???Glucose Level - 87 mg/dL???BUN - 20 mg/dL???Creatinine-Blood - 0.9 mg/dL???Estimated GFR Creatinine - 94 ML/MIN/1.73 M2???Calcium - 8.0 mg/dL BUN (12/18/2022) ???BUN - 23 mg/dL C-REACTIVE PROTEIN (12/11/2022) ???C-Reactive Protein - 1.9 mg/dL CBC (12/18/2022) ???WBC - 4.7 k/mm3???RBC - 4.35 m/mm3???Hgb - 11.7 Gm/dL???Hct - 36.7 %???MCV - 84.4 femtoliters???MCH - 26.9 pg???MCHC - 31.9 g/dL???Platelet Count - 102 k/mm3???RDW-SD - 49.4 femtoliters???MPV - 11.3 femtoliters???Nucleated RBC (Automated) - 0.0 #/100 WBC'S???Abs. NRBC - 0.0 k/mm3 CBC w/ Differential (12/15/2022) ???WBC - 4.6 k/mm3???RBC - 3.88 m/mm3???Hgb - 10.6 Gm/dL???Hct - 33.1 %???MCV - 85.3 femtoliters???MCH - 27.3 pg???MCHC - 32.0 g/dL???Platelet Count - 87 k/mm3???RDW-SD - 48.7 femtoliters???MPV - 9.6femtoliters???Nucleated RBC (Automated) - 0.0 #/100 WBC'S???Abs. NRBC - 0.0 k/mm3???Abs. Neut - 2.2 k/mm3???Abs. Lymph - 1.5 k/mm3???Abs. Perkins - 0.6 k/mm3???Abs. Eo - 0.4 k/mm3???Abs. Baso - 0.0 k/mm3???Neut % - 46.3 %???Lymph % - 31.5 %???Perkins % - 13.4 %???Eos % - 8.0 %???Baso % - 0.6 %???Imm Gran- 0.2 %???Abs. Imm Gran - 0.0 k/mm3 Cocaine Urine Screen (12/12/2022) ???Cocaine Metabolite Screen, Urine - POSITIVE COVID-19 (Novel Coronavirus), Rapid PCR (12/11/2022) ???COVID-19 by RT-PCR - NEGATIVE CPK Total Only (12/12/2022) ???CK, Total - 285 units/L Creatinine (12/18/2022) ???Creatinine-Blood - 0.9 mg/dL???Estimated GFR Creatinine - 94 ML/MIN/1.73 M2 CRP (12/12/2022) ???C-Reactive Protein - 1.5 mg/dL DIFFERENTIAL (12/13/2022) ???Abs. Neut - 1.7 k/mm3???Abs. Lymph - 1.2 k/mm3???Abs. Perkins - 0.6 k/mm3???Abs. Eo - 0.3 k/mm3???Abs. Baso - 0.0 k/mm3???Neut % - 45.8 %???Lymph % - 31.1 %???Perkins % - 14.6 %???Eos % - 7.2 %???Baso %- 0.8 %???Imm Gran - 0.5 %???Abs. Imm Gran - 0.0 k/mm3 Electrolytes (12/18/2022) ???Sodium - 136 mmol/L???Potassium - 4.6 mmol/L???Chloride - 102 mmol/L???Bicarbonate Level - 28 mmol/L???Anion Gap - 6 ESR (12/12/2022) ???Sed Rate - 16 mm/hr ETHANOL (12/11/2022) ???Ethanol, Serum or Plasma - NONE DETECTED Glucose Level (12/18/2022) ???Glucose Level - 93 mg/dL High??Sensitivity??Troponin T (12/11/2022) ???High Sensitivity Troponin (HSTnT) - 40 ng/L Lactic Acid Level (12/11/2022) ???Lactate - 2.3 mmol/L Magnesium Level (12/12/2022) ???Magnesium - 2.0 mg/dL Mg Level (12/13/2022) ???Magnesium - 1.8 mg/dL Opiate Screen Urine (12/12/2022) ???Opiate Screen, Urine - NONE DETECTED Phosphorus Level (12/12/2022) ???Phosphorus - 2.6 mg/dL PTT (12/11/2022) ???APTT - 33.5 seconds SEDIMENTATION RATE,AUTOMATED (12/11/2022) ???Sed Rate - 22 mm/hr TSH with T4 Reflex (Adults Only) (12/11/2022) ???TSH - 1.95 uIU/mL Allergies (NKA means No Known Allergies) traZODone Problems Active Problems??(7) ZAY (acute kidney injury)?? COVID-19?? CANDI (generalized anxiety disorder)?? Leukocytosis?? Lower extremity cellulitis?? MDD (major depressive disorder)?? Sepsis?? Education Materials Below is the list of Educational Leaflet Providered with your Discharge Instructions. Discharge Instructions for Cellulitis?? Valuables and Belongings I fully understand and agree that [facility] accepts no responsibility for all my personal [...] to send valuables and belongings home. ?? Safe envelope number: [id number] Review of Valuable and Belonging List: With patient, With witness Disposition of Belongings: Valuables Locked Date for Pt to Sign Valuables/Belongings: 12/12/22 10:18:00 ?? Other Discharge Information ?? Wound Assessment?? Wound Assessment?? Wound Location I: Leg, right Wound Type I: Other: cellulitis Wound I, Present on Admission: Yes ? Pulmonary Rehab Status?? Pulmonary Rehab Discharge Status?? Respiratory Rate: 16 br/min ? Common Emergency Awareness Tips IS [...] are strongly encouraged to quit. Please call [facility] at [phone] or [phone]) or log in to [email or web address] for referrals to smoking cessation programs. ?? 753 Suicide & Crisis Lifeline is available 27/02 if you or someone you know needs to find a reason to keep living. By calling 797 you'll be connected to a skilled, trained counselor at a crisis center in your area. INPATIENT DISCHARGE INSTRUCTIONS SIGNATURE PAGE RENEE CORNELIUS Location:[facility] Registration Date and Time:12/12/2022 10:22 EDT Primary Care Physician: Brandee Grey MD, Attending Physician: Evan MCKEON, Anabela , I RENEE CORNELIUS, have received the above patient education materials/instructions and have verbalized understanding. If ambulance or transport services are being used I further acknowledge being given a choice of service. ?? If you need to contact me, please call me at this number: . Patient/Wellness Assistant Name: Patient/Wellness Assistant Signature: Relationship to Patient: Witness Name/Signature: Date: * Alexa Roper: PERFORM Event Display: Patient Education Leaflets Authored Date: [id number] Discharge Instructions for Cellulitis ?? [address]27 Instrucciones de casey para la celulitis A usted le thapa diagnosticado celulitis, jurgen infecci??n que ocurre en la capa m??s profunda de la piel. La celulitis es causada por bacterias, que pueden entrar al cuerpo a jerrica??s de cualquier tipo de abertura en la piel (gianna jurgen cortada, un rasgu??o, jurgen mordedura de animal o jurgen picadura de insecto que se shane rascado).??Es posible que le hayan dado??tratamiento en el hospital con antibi??ticos y l??quidos por v??a intravenosa. Isaiah vez le receten antibi??ticos para girish en casa. Estas son algunas instrucciones para el cuidado en seymour casa. Cuidados en la casa ??? Aseg??rese de girish todos los medicamentos que le thapa dado hasta que se terminen, aun si se siente mejor. Si no termina los medicamentos, es posible que la infecci??n reaparezca. No terminar los medicamentos puede hacer que cualquier infecci??n futura sea m??s dif??cil de tratar.? Mantengalimpia el ??jessica infectada. ??? Si es posible, eleve seymour herida. Esta pr??ctica le ayudar?? a bajar la hinchaz??n. ??? Consulte con seymour m??dico si siente dolor. Pregunte a seymour m??dico si puede girish medicamentos sin receta para aliviar el dolor. ??? Aplique vendajes limpios o ap??sitos de gasa seg??n le indique seymour m??dico. ??? T??mese la temperatura todos los d??as cheryl jurgen semana. Informe a seymour m??dico si tiene fiebre. ??? Para prevenir las infecciones, l??vese frecuentemente??las bjorn. En el futuro, l??vese las bjorn antes y despu??s de tocar cualquier tipo de cortadas, rasgu??os o vendajes. [place] le ayudar?? a prevenir infecciones. Visitas de control Programe jurgen visita de control seg??n le indique el personal m??dico. Cu??ndo debe llamar a seymour m??dico Llame a seymour m??dico de inmediato si nota cualquiera de estos s??ntomas: ??? V??tomas ??? Fiebre de 100.4??F (38??C) o m??s, o lo que le indique el proveedor de atenci??n m??dica ??? Escalofr??os temblorosos ??? Enrojecimiento que empeora en o alrededor del ??jessica infectada, particularmente si el ??reaenrojecida se expande. ??? Hinchaz??n del ??jessica infectada ??? Dolor que empeora en o alrededor del ??jessica infectada ??? Dificultad o dolor al clock and watch hands dipper las articulaciones por encima o por debajo del ??reainfectada ??? Secreci??n o pus procedentes del ??jessica afectada Last Reviewed Date: 2016 ?? 3793-2617 [employer]. Todos los derechos reservados. Esta informaci??n no pretende sustituir la atenci??n m??dica profesional. S??lo seymour m??dico puede diagnosticar y tratar un problema de melany. ?? * [employer] , CIS S: TRANSCSushil Dsouza MD: SIGN Regis Page MD, V: MODIFY Event Display: Addendum Authored Date: [id number] The initial report identified a right posterior fifth rib fracture. The report should read a minimally displaced LEFT posterior fifth rib fracture. I have personally reviewed the images and I agree with this report. WSN: [id number] Ordering Physician: Alexa Haines Dictated By: Sushil Grady MD Dictated Date/Time: 12/16/22 3:02 pm Reviewed By: Regis Page MD, V Signed By: Regis Page MD, V Signed Date/Time: 12/16/22 3:07 pm Transcribed By: CSAdam Transcribed Date/Time: 12/16/22 2:59 pm * Danna De Luna RN: PERFORM Event Display: Discharge/Transfer Note Hospital Authored Date: [id number] Discharge Planning Nursing Entered On: 12/15/2022 9:47 EDT Performed On: 12/15/2022 9:47 EDT by Danna De Luna RN Discharge Planning Nursing Anticipated discharge : group home facility Danna De Luna RN - 12/15/2022 9:47 EDT US.doppler Lower extremity vein - bilateral * [facility]ers[facility] , CIS S: Wisam Kidd MD: VERIFY Event Display: Result: Authored Date: [id number] US Doppler Ext Lower Venous Bilat Reason: Swelling Extremities; Clinical Question(s): Thrombosis COMPARISON: None IMAGING TECHNIQUE: Ultrasound of the veins from the groin through the calf was performed using grayscale, color, and spectral Doppler ultrasound assessing for complete compressibility and normal flowcharacteristics. FINDINGS: RIGHT LOWER EXTREMITY: Common femoral vein: Patent. No thrombosis. Femoral vein: Patent. No thrombosis. Popliteal vein: Patent. No thrombosis. Gastrocnemius veins: The visualized portions are patent without evidence of thrombosis. Peroneal veins: The visualized portions are patent without evidence of thrombosis. Posterior tibial veins: The visualized portions are patent without evidence of thrombosis. LEFT LOWER EXTREMITY: Common femoral vein: Patent. No thrombosis. Femoral vein: Patent. No thrombosis. Popliteal vein: Patent. No thrombosis. Gastrocnemius veins: The visualized portions are patent without evidence of thrombosis. Peroneal veins: The visualized portions are patent without evidence of thrombosis. Posterior tibial veins: The visualized portions are patent without evidence of thrombosis. OTHER FINDINGS: Fluid collection the right popliteal fossa measuring 3.4 x 1.1 x 2.5 cm. Fluid collection in the left popliteal fossa measuring 4.1 x 0.8 x 1.9 cm. IMPRESSION: No evidence of deep venous thrombosis. Bilateral Foy cysts. WSN: [id number] Ordering Physician: Rosalino Raymond Dictated By: Wisam Carpio MD Dictated Date/Time: 12/12/22 9:27 pm Reviewed By: Wisam Carpio MD Signed By: Wisam Carpio MD Signed Date/Time: 12/12/22 9:27 pm Transcribed By: ANGELICA Transcribed Date/Time: 12/12/22 9:24 pm Portable XR Chest Views * [facility] , CIS S: TRANSCRIBE Miguel A MCKEON, Sushil T: SIGN Camilo MCKEON, Regis V: VERIFY Event Display: Result: Authored Date: [id number] Chest Portable Reason: Pain. Clinical Question(s): Rib fracture COMPARISON: 03/23/2022, 03/22/2018 FINDINGS: LINES AND TUBES: None. LUNGS AND PLEURA: Mild bibasilar atelectasis, otherwise the lungs are clear. No focal consolidation. Normal pulmonaryvascularity. No pleural effusion. No pneumothorax. HEART, MEDIASTINUM AND MARCUS: Mild prominence of the cardiac silhouette, which may be exacerbated by image acquisition technique. Normal mediastinal and hilar contour. BONES AND SOFT TISSUES: Age-indeterminate, slightly displaced fracture of the right posterior fifth rib, new from 03/23/2022. IMPRESSION: Right posterior fifth rib fracture, new from 03/23/2022. I have personally reviewed the images and I agree with this report. WSN: [id number] Ordering Physician: Alexa Haines Dictated By: Sushil Grady MD Dictated Date/Time: 12/16/22 2:33 pm Reviewed By: Regis Page MD, V Signed By: Regis Page MD, V Signed Date/Time: 12/16/22 2:38 pm Transcribed By: ANGELICA Transcribed Date/Time: 12/16/22 2:29 pm XR Ankle - right 2 Views * [facility]SP[facility]ers[facility] , CIS S: TRANSCRIBE Viviana Lowry MD: VERIFY Event Display: Result: Authored Date: [id number] Ankle 2 Views Right Reason: Pain; Clinical Question(s): Fracture COMPARISON: 03/23/2022 FINDINGS: No evidence of acute or healing fracture or bone lesion. There appears to be chronic smooth periosteal reaction involving both the distal tibia and fibula which is similar to the previous exam; correlate for venous stasis. Mild calcaneal spurring. Intact ankle mortise and ankle done. Diffuse soft tissue swelling. IMPRESSION: No acute osseous findings. WSN: [id number] Ordering Physician: Alexa Haines Dictated By: Viviana Lowry MD Dictated Date/Time: 12/16/22 2:36 pm Reviewed By: Viviana Lowry MD Signed By: Viviana Lowry MD Signed Date/Time: 12/16/22 2:36 pm Transcribed By: ANGELICA Transcribed Date/Time: 12/16/22 2:33 pm Patient Care team information Care Team Personnel Name: So Ayala RN Position: S RN Member Role: Primary Care Nurse Name: Aman Salcedo RN Position: S RN Member Role: Primary Care Nurse Name: Radha Ayers NP Position: S Associate Professional Member Role: Primary Care Nurse Address: Address: [address] [place] [address]- [place] Name: Nehal Matthews RN Position: [facility] RN Member Role: Primary Care Nurse Name: Cyndi Li RN Position: [facility] RN Member Role: Primary Care Nurse Name: Rita Aparicio RN Position: [facility] RN Member Role: Primary Care Nurse Name: Ana Armendariz RN Position: [facility] AMB Nurse Member Role: Primary Care Nurse Name: Cristobal Alvarez RN Position: [facility] SN RN Member Role: Primary Care Nurse Name: Josselyn Gama RN Position: [facility] RN Member Role: Primary Care Nurse Name: Daniele Medina RN Position: [facility] RN Member Role: Primary Care Nurse Name: Lisset Cornelius RN Position: [facility] RN Member Role: Primary Care Nurse Name: Elis Chaparro RN Position: [facility] RN Member Role: Primary Care Nurse Name: Olivia Tejada RN Position: [facility] RN Member Role: Primary Care Nurse Name: Brandee Gery MD Position: Reference Physician Member Role: PCP Address: Address: [address] [place] [address]- [place] Name: Mikayla Mata RN Position: [facility] RN Member Role: Primary Care Nurse Name: Dari Oliva RN Position: [facility] RN Member Role: Primary Care Nurse Name: Sonya CARRILLO Attending Position: [facility] ED Medicine MD Name: Yamini Moran RN Position: [facility] ED RN W/OE and Tasks Member Role: Patient Care Provider Name: Arielle Banuelos Position: [facility] ED OA Charge Member Role: ED Associate Name: Mena Chan Position: [facility] ED TA [facility] Care Team Related Persons Name: REVA DEL TORO Address: home [address] [place] [address] Name: SHONA TEJADA Address: home [address] [place] [address]
--- OUTSIDE RECORDS SUMMARY | 2023-03-31 07:17 | XMS_ITS | Continuity of Care Document ---
Author Name Unknown Organization [facility] Address [address] [place] [address]- Care Team Providers Care [employer] Name Role Phone Que MCKEON, Brandee Primary Care Physician Encounter [facility] Date(s): 01/29/23 - 01/29/[address] [address]- Discharge Disposition: A-D/C Home Attending Physician: Ti Mckeon MD Admitting Physician: Ti Mckeon MD Referring Physician: Not on Staff, Referring MD Allergies, Adverse Reactions, Alerts Substance Reaction Severity Status traZODone Active Immunizations Given and Recorded Vaccine Date Status Refusal Reason SARS-CoV-2 (COVID-19) mRNA BNT-162b2 vac 02/24/21 Recorded Not Given Vaccine Date Status Refusal Reason tetanus/diphtheria/pertussis, acel(Tdap) 1 04/17/22 Not Given Patient Refuses SARS-CoV-2 mRNA ([id number]) vax 03/25/22 Not Given Patient Refuses 1Result Comment: pt refuses adimently Medications acetaminophen 325 mg oral tablet 650 mg, By Mouth, 2 times a day, PRN, # 120 tablet, Refills 1, Tot. Refills 1, Acute 04/19/23 9:00:00 EDT, Pain , Moderate, 12/20/22 12:05:00 EDT, Route to Pharmacy Electronically, [facility], Partial fill upon patient request if the pre... Start Date: 12/20/22 Stop Date: 04/19/23 Status: Ordered Bactrim DS 800 mg-160 mg oral tablet 1 tablet, By Mouth, 2 times a day, for 10 days, # 20 tablet, 0 Refills, Acute 02/08/23 18:07:00 EDT, 01/29/23 18:07:00 EDT, Tablet, [facility], Partial fill upon patient request if the prescription is for a schedule II opioid drug.... Start Date: 01/29/23 Stop Date: 02/08/23 Status: Ordered FLUoxetine 40 mg oral capsule 1 capsule = 40 mg, By Mouth, Daily, # 30 capsule, 1 Refills, Maintenance, 12/20/22 12:05:00 EDT, Capsule, [facility], Partial fill upon [...] 03/30/23 9:00:00 EDT, 12/20/22 12:05:00 EDT, Capsule, [facility], Partial fill upon patient request if the prescription is for a schedule II opi... Start Date: 12/20/22 Stop Date: 03/30/23 Status: Ordered Methadone = 30 mg, Daily, 0 Refills, Maintenance, 07/01/22 14:36:00 EST, Partial fill upon patient request ifthe prescription is for a schedule II opioid drug. Start Date: 07/01/22 Status: Ordered prazosin 1 mg oral capsule 1 mg, 1, capsule, By Mouth, Daily at bedtime, # 30 capsule, Refills 1, Tot. Refills 1, Maintenance,12/20/22 12:06:00 EDT, Route to Pharmacy Electronically, [facility], Partial fill upon patient request if the prescription is for a sched... Start Date: 12/20/22 Status: Ordered Problem List Condition Confirmation Course Effective Dates Status Health St atus Informant Lower extremity cellulitis Confirmed Active COVID-19 Confirmed Active CANDI (generalized anxiety disorder) Confirmed Active ZAY (acute kidney injury) Confirmed Active Leukocytosis Confirmed Active MDD (major depressive disorder) Confirmed Active Sepsis Confirmed Active Vital Signs Most recent to oldest [Reference Range]: 1 2 3 Height 178 cm (01/29/23 6:51 PM) 178 cm (01/29/23 5:26 PM) 178 cm (01/29/23 3:41 PM) Weight 82.8 kg (01/29/23 3:41 PM) Oxygen Saturation [94-100 %] 98 % (01/29/23 6:51 PM) 97 % (01/29/23 5:26 PM) 100 % (01/29/23 3:41 PM) Pulse Rate [55-90 bpm] 79 bpm (01/29/23 6:51 PM) 80 bpm (01/29/23 5:26 PM) 81 bpm (01/29/23 3:41 PM) Blood Pressure [90-138/55-84 mm Hg] 138/87mm Hg (01/29/23 6:51 PM) 139/78mm Hg *H* (01/29/23 5:26 PM) 145/70mm Hg *H* (01/29/23 3:41 PM) Respiratory Rate [16-30 br/min] 18 br/min (01/29/23 6:51 PM) 18 br/min (01/29/23 5:26 PM) 18 br/min (01/29/23 3:41 PM) Temperature [96.8-100.4 DegF] 99.5 DegF (01/29/23 6:51 PM) 98.7 DegF (01/29/23 5:26 PM) 98.2 DegF (01/29/23 3:41 PM) Mode of Delivery (Oxygen) Room air (01/29/23 6:51 PM) Room air (01/29/23 5:26 PM) Room air (01/29/23 3:41 PM) Blood pressure sites Arm, left (01/29/23 6:51 PM) Arm, left (01/29/23 5:26 PM) Arm, left (01/29/23 3:41 PM) Temperature Route Oral (01/29/23 6:51 PM) Oral (01/29/23 5:26 PM) Temporal (01/29/23 3:41 PM) Dry Weight 82.8 kg (01/29/23 3:41 PM) Note * Linda MCKEON, Ti Keller: PERFORM Event Display: Patient Education Leaflets Authored Date: [id number] Zones Cellulitis ?? 352 ZONAS DE CELULITIS TODOS LOS D? C??mo cuidarse cuando tiene celulitis La celulitis es jurgen infecci??n de las capas de moy piel. La infecci??n tambi??n puede pasar al tejido debajo de moy piel. La celulitis es causada por g??rmenes llamados bacterias. Los g??rmenes pueden ingresar a moy piel a jerrica??s de jurgen lesi??n gianna jurgen mordedura, sarpullido, landon??azo o thaddeus. TODOS LOS D? : ??? [place] solange medicamentos de la manera indicada por moy m??dico. [place] todos los antibi??ticos incluso si se siente mejor. No omita ninguna dosis. ??? Tenga consigo jurgen lista de medicamentos actualizada. ??? Es importante que acuda a jurgen consulta con moy m??dico/enfermero en unos pocos d??as. ??? L??vese las bjorn a menudo y lave las toallas con port gamble y jab??n o blanqueador despu??s de usarlas para matar los g??rmenes. ??? No comparta art??culos de uso personal (gianna afeitadoras o toallas). ??? Cu??dese la piel. Use jurgen loci??n para evitar que la piel se reseque. ??? Levante el brazo o pierna afectados por encima del nivel de moy coraz??n cuando le sea posible, para disminuir la hinchaz??n. ??? Limite el uso de la parte del cuerpo afectada ya que el exceso de movimiento puede hacer que la infecci??n se extienda. ??En qu?? sofy est?? usted hoy? ??GWENDOLYN, AMARILLA o COSTA? SOFY GWENDOLYN TODO NA ??? Esta sofy es moy meta Solange s??ntomas est??n bajo control cuando: ??? Tiene poco o dixie??n dolor. ??? Moy hinchaz??n, calor,dolor y/o enrojecimiento en la sofy est??n disminuyendo. ??? No tiene fiebre ni jurgen temperatura mayor que 100.4 ???F. SOFY AMARILLA ?? DET??NGASE Y LLAME PELIGRO - Esta sofy es jurgen advertencia. ?? Si tiene cualquiera de los siguientes: Llame a moy m??dico/enfermero: ??? Tiene fiebre o jurgen temperatura de m??s de 100.4 ???F, se siente d??lyubov o mareado. ??? El dolor, el enrojecimiento o la hinchaz??n est??n aumentando. ??? Solange s??ntomas no est??n mejorando despu??s de 3 d??as de girish antibi??ticos. ??? Si tiene preguntas sobre la celulitis o moy medicamento. ??? Nota supuraci??n o cambios en el color o el olor. SOFY COSTA EMERGENCIA: Hable con moy m??dico/enfermero de inmediato si tiene cualquiera de los siguientes: (no maneje usted mismo) ? Tiene fiebre casey con escalofr??os mary. ?? o Tiene pus, mucosidad o supuraci??n con mal olor en el ??jessica afectada. o [place] el dolor o la hinchaz??n. ? Patient Care team information Care Team Personnel Name: So Ayala RN Position: [facility] RN Member Role: Primary Care Nurse Name: Aman Salcedo RN Position: [facility] RN Member Role: Primary Care Nurse Name: Radha Ayers NP Position: [facility] Associate Professional Member Role: Primary Care Nurse Address: Address: [address] [place] [address]- [place] Name: Nehal Matthews RN Position: [facility] RN Member Role: Primary Care Nurse Name: Rita Aparicio RN Position: [facility] RN Member Role: Primary Care Nurse Name: Ana Armendariz RN Position: [facility] AMB Nurse Member Role: Primary Care Nurse Name: Cristobal Alvarez RN Position: [facility] SN RN Member Role: Primary Care Nurse Name: Josselyn Gama RN Position: [facility] RN Member Role: Primary Care Nurse Name: Daniele Medina RN Position: [facility] RN Member Role: Primary Care Nurse Name: Lisset Cornelius RN Position: [facility] RN Member Role: Primary Care Nurse Name: Elis Chaparro RN Position: [facility] RN Member Role: Primary Care Nurse Name: Olivia Tejada RN Position: [facility] RN Member Role: Primary Care Nurse Name: Brandee rGey MD Position: Reference Physician Member Role: PCP Address: Address: [address] [place] [address]- [place] Name: Dari Oliva RN Position: [facility] RN Member Role: Primary Care Nurse Name: Ti Mckeon MD Position: [facility] ED Medicine MD Member Role: Admitting Physician Address: Address: [address] [place] [address]- [place] Name: Rosey Rand RN Position: [facility] ED RN W/OE and Tasks Member Role: Patient Care Provider Name: Kristel Nguyễn Position: [facility] ED [facility] Member Role: Rx Specialist Care Team Related Persons Name: REVA DEL TORO Address: home [address] [place] [address] Name: SHONA TEJADA Address: home [address] [place] [address]
--- OUTSIDE RECORDS SUMMARY | 2023-03-31 07:17 | XMS_ITS | Continuity of Care Document ---
Author Name Unknown Organization [facility] ter Address [address] [place] [address]- Care Team Providers Care [employer]el [employer] Name Role Phone Que MCKEON, Brandee Primary Care Physician Encounter [facility] Date(s): 02/22/23 - 02/23/[address] [address]- Encounter Diagnosis Cellulitis(Final) - 02/23/23 Discharge Disposition: A-D/C Senior Care, Senior Care, or Halfway Fac Attending Physician: Josselyn Khan MD Admitting Physician: Josselyn Khan MD Referring Physician: Not on Staff, Referring MD Allergies, Adverse Reactions, Alerts Substance Reaction Severity Status traZODone Active Immunizations Given and Recorded Vaccine Date Status Refusal Reason SARS-CoV-2 (COVID-19) mRNA BNT-162b2 vac 02/24/21 Recorded Not Given Vaccine Date Status Refusal Reason tetanus/diphtheria/pertussis, acel(Tdap) 1 04/17/22 Not Given Patient Refuses SARS-CoV-2 mRNA (hmkluei-cphl-nzckb) vax 03/25/22 Not Given Patient Refuses 1Result Comment: pt refuses adimently Medications acetaminophen 325 mg oral tablet 650 mg, By Mouth, 2 times a day, PRN, # 120 tablet, Refills 1, Tot. Refills 1, Acute 04/19/23 9:00:00 EDT, Pain , Moderate, 12/20/22 12:05:00 EDT, Route to Pharmacy Electronically, [facility], Partial fill upon patient request if the pre... Start Date: 12/20/22 Stop Date: 04/19/23 Status: Ordered cephalexin monohydrate 500 mg oral capsule = 500 mg, By Mouth, 4 times a day, # 20 capsule, 0 Refills, Soft Stop, 02/23/23 7:55:00 EDT, Capsule, Partial fill upon patient request if the prescription is for a schedule II opioid drug. Start Date: 02/23/23 Status: Ordered FLUoxetine 40 mg oral capsule 1 capsule = 40 mg, By Mouth, Daily, # 30 capsule, 1 Refills, Maintenance, 12/20/22 12:05:00 EDT, Capsule, [facility], Partial fill upon patient request if the prescription is for a schedule II opioid drug., 178, cm, 12/20/22 7:27:00 EDT,... Start Date: 12/20/22 Stop Date: 04/20/23 Status: Ordered hydrOXYzine pamoate 25 mg oral capsule 1 capsule = 25 mg, By Mouth, 4 times a day, PRN for anxiety, # 120 capsule, 1 Refills, Acute 03/30/23 9:00:00 EDT, 12/20/22 12:05:00 EDT, Capsule, [facility], Partial fill upon patient request if the prescription is for a schedule II opi... Start Date: 12/20/22 Stop Date: 03/30/23 Status: Ordered Methadone = 30 mg, Daily, 0 Refills, Maintenance, 07/01/22 14:36:00 EST, Partial fill upon patient request ifthe prescription is for a schedule II opioid drug. Start Date: 07/01/22 Status: Ordered Methadone Liquid 60 mg, Solution, By Mouth, Once, STAT, 02/23/23 7:29:00 EDT, Stop date 02/23/23 7:29:00 EDT Start Date: 02/23/23 Stop Date: 02/23/23 Status: Completed prazosin 1 mg oral capsule 1 mg, 1, capsule, By Mouth, Daily at bedtime, # 30 capsule, Refills 1, Tot. Refills 1, Maintenance,12/20/22 12:06:00 EDT, Route to Pharmacy Electronically, [facility], Partial fill upon patient request if the prescription is for a sched... Start Date: 12/20/22 Status: Ordered sulfamethoxazole-trimethoprim 800 mg-160 mg oral tablet 1 tablet, By Mouth, Every 12 hours, # 10 tablet, 0 Refills, Soft Stop, 02/23/23 7:56:00 EDT, Tablet, Partial fill upon patient request if the prescription is for a schedule II opioid drug. Start Date: 02/23/23 Status: Ordered Problem List Condition Confirmation Course Effective Dates Status Health St atus Informant Lower extremity cellulitis Confirmed Active COVID-19 Confirmed Active CANDI (generalized anxiety disorder) Confirmed Active ZAY (acute kidney injury) Confirmed Active Leukocytosis Confirmed Active MDD (major depressive disorder) Confirmed Active Sepsis Confirmed Active Results Radiology Reports * Exam Date Time Procedure Performing Provider Status 02/23/23 10:18 AM US Doppler Ext Lower Venous Right AkbarolindaCathleen burns; Auth (Verified) Notes: (US Doppler Ext Lower Venous Right) Reason For Exam: Pain in limb;Other: RESULT: US Doppler Ext Lower Venous Right US Doppler Ext Lower Venous Right Reason: Pain in limb; Clinical Question(s): Thrombus COMPARISON: Venous Doppler ultrasound from 12/12/2022. IMAGING TECHNIQUE: Ultrasound of the veins from the groin through the calf was performed using grayscale, color, and spectral Doppler ultrasound assessing for complete compressibility and normal flowcharacteristics. FINDINGS: Common femoral vein: Patent. No thrombosis. Femoral vein: Patent. No thrombosis. Popliteal vein: Patent. No thrombosis. Gastrocnemius veins: The visualized portions are patent without evidence of thrombosis. Peroneal veins: The visualized portions are patent without evidence of thrombosis. Posterior tibial veins: The visualized portions are patent without evidence of thrombosis. Contralateral common femoral vein: Patent. No thrombosis. IMPRESSION: No evidence of deep venous thrombosis. 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 I have personally reviewed the images and I agree with this report. WSN: [id number] Ordering Physician: Kelly Castaneda Dictated By: Mindy Seals MD Dictated Date/Time: 02/23/23 10:44 a Reviewed By: Jayant Dewitt MD Signed By: Jayant Dewitt MD Signed Date/Time: 02/23/23 10:49 am Transcribed By: ANGELICA Transcribed Date/Time: 02/23/23 10:27 am * Exam Date Time Procedure Performing Provider Status 02/22/23 5:52 PM Foot Min 3 Views Right Bills GustaboRoseann ; Auth (Verified) Notes: (Foot Min 3 Views Right) Reason For Exam: Pain RESULT: Foot Min 3 Views Right Right foot 3 views dated February 22, 2023. Comparison films are from April 20, 2021. HISTORY: Pain. FINDINGS: This examination shows no evidence of fracture or dislocation. There is mild loss of joint space in the metatarsophalangeal and interphalangeal joints. A small amount of calcification is present at the insertion of the Achilles tendon. IMPRESSION: Mild degenerative changes. No evidence of acute osseous abnormality. Examination 16261. Thank you for allowing me to participate in the care of this patient. WSN: [id number] Ordering Physician: Ashleigh Gordon Dictated By: Jerrell Moran MD Dictated Date/Time: 02/22/23 6:00 pm Reviewed By: Jerrell Moran MD Signed By: Jerrell Moran MD Signed Date/Time: 02/22/23 6:00 pm Transcribed By: ANGELICA Transcribed Date/Time: 02/22/23 6:00 pm * Exam Date Time Procedure Performing Provider Status 02/22/23 5:52 PM Ankle Min 3 Views Right Marsha Bills; Jennifer (Verified) Notes: (Ankle Min 3 Views Right) Reason For Exam: Other: RESULT: Ankle Min 3 Views Right Right ankle 3 views dated February 22, 2023. Comparison films are from December 16, 2022. HISTORY: Pain. FINDINGS: This examination shows mild soft tissue swelling. No fracture or dislocation is identified. The ankle mortise is intact on this nonstressed study. No joint effusion is seen. There is a small plantar calcaneal bone spur and a minimal amount of calcification of the Achilles tendon at its insertion on the calcaneus. The healing fracture of the distal fibula is once again demonstrated. IMPRESSION: No evidence of acute osseous abnormality and no significant interval change. Examination 99395. Thank you for allowing me to participate in the care of this patient. WSN: [id number] Ordering Physician: Ashleigh Gordon Dictated By: Jerrell Moran MD Dictated Date/Time: 02/22/23 5:59 pm Reviewed By: Jerrell Moran MD Signed By: Jerrell Moran MD Signed Date/Time: 02/22/23 5:59 pm Transcribed By: ANGELICA Transcribed Date/Time: 02/22/23 5:59 pm Vital Signs Most recent to oldest [Reference Range]: 1 2 3 Height 175 cm (02/22/23 4:36 PM) Weight 89 kg (02/22/23 4:36 PM) Oxygen Saturation [94-100 %] 99 % (02/23/23 1:17 PM) 98 % (02/23/23 10:50 AM) 97 % (02/23/23 7:49 AM) Pulse Rate [55-90 bpm] 67 bpm (02/23/23 1:17 PM) 60 bpm (02/23/23 10:50 AM) 65 bpm (02/23/23 7:49 AM) Body Mass Index [18.5-24.99 kg/m2] 29.06 kg/m2 *H* (02/22/23 4:36 PM) Blood Pressure [90-138/55-84 mm Hg] 159/90mm Hg *H* (02/23/23 1:17 PM) 136/81mm Hg (02/23/23 10:50 AM) 145/79mm Hg *H* (02/23/23 7:49 AM) Respiratory Rate [16-30 br/min] 16 br/min (02/23/23 1:17 PM) 18 br/min (02/23/23 10:50 AM) 16 br/min (02/23/23 8:06 AM) Temperature [96.8-100.4 DegF] 98.1 DegF (02/23/23 1:17 PM) 98 DegF (02/23/23 7:49 AM) 98.2 DegF (02/23/23 6:22 AM) Mode of Delivery (Oxygen) Room air (02/23/23 1:17 PM) Room air (02/23/23 10:50 AM) Room air (02/23/23 7:49 AM) Blood pressure sites Arm, right (02/23/23 1:17 PM) Arm, right (02/23/23 10:50 AM) Arm, right (02/23/23 7:49 AM) Temperature Route Oral (02/23/23 1:17 PM) Oral (02/23/23 7:49 AM) Oral (02/23/23 6:22 AM) Dry Weight 86 kg (02/22/23 4:36 PM) Weight Obtained Via Standing scale (02/22/23 4:36 PM) Dry Weight Obtained Via Standing scale (02/22/23 4:36 PM) Note * Kelly Castaneda MD: PERFORM Event Display: Patient Education Leaflets Authored Date: [id number] Cellulitis ?? [id number] Celulitis La celulitis es jurgen infecci??n de las capas profundas de la piel. Jurgen herida en la piel gianna, por ejemplo, jurgen cortada o un rasp??n, puede permitir la entrada de bacterias debajo de la piel. La celulitis produce enrojecimiento, hinchaz??n, calor y dolor en la piel afectada. Las zonas enrojecidas tienen un borde visible. Las lesiones abiertas pueden supurar (pus). Puede tener fiebre, escalofr??os y dolor. La celulitis se trata con antibi??ticos de siete a britton d??as. Las llagas abiertas pueden limpiarsey cubrirse con jurgen gasa h??julian y fr??a. Los s??ntomas suelen desaparecer al cabo de maribel a dos d??as de tratamiento. Aseg??rese de girish todos los antibi??ticos cheryl la totalidad de los d??as indicados hasta que se terminen. Siga tomando los medicamentos, aunque los s??ntomas hayan desaparecido. Si no se trata, la celulitis puede entrar en el torrente sangu??manpreet y en los ganglios linf??ticos. Entonces, la infecci??n se puede diseminar por todo el organismo. [place] provoca jurgen enfermedad grave. Cuidados en el hogar Siga los siguientes consejos: ??? Limite el uso de la parte del cuerpo afectada con celulitis.? Si la infecci??n est?? en seymour pierna, mantenga la pierna elevada mientras est?? sentado. Ayuda a reducir la hinchaz??n. ??? [place] todos los antibi??ticos que le hayan recetado exactamente seg??n las indicaciones hasta terminarlos. No omita ninguna dosis, especialmente cheryl los primeros siete d??as. Termine de girish los medicamentos aun cuando los s??ntomas hayan disminuido. ??? Mantenga la zonaafectada limpia y seca. ??? L??vese las bjorn con agua y jab??n antes y despu??s de tocarse la piel. Cualquier persona que toque seymour piel tambi??n deber?? lavarse las bjorn. No comparta toallas. ?? Visita de seguimiento Asista a las citas de seguimiento con seymour proveedor de atenci??n m??dica o seg??n le hayan indicado.Si la infecci??n no desaparece con el primer antibi??tomeka, seymour proveedor de atenci??n m??dica le recetar?? maribel diferente. ?? Cu??ndo buscar atenci??n m??dica Llame a seymour proveedor de atenci??n m??dica de inmediato ante cualquiera de las siguientes situaciones: ??? Enrojecimiento que se est?? extendiendo ??? Hinchaz??n o dolor que empeoran ??? Secreci??n brendan piel (pus) ??? Fiebre de 100.4?F (38.0?C) o superior, despu??s de 2??d??as de girish antibi??ticos ?? Last Reviewed Date: 2021 ?? [id number] [employer]. Todos los derechos reservados. Esta informaci??n no pretende sustituir la atenci??n m??dica profesional. S??lo seymour m??dico puede diagnosticar y tratar un problema de melany. ?? Patient Care team information Care Team Personnel Name: So Ayala RN Position: [facility] RN Member Role: Primary Care Nurse Name: Aman Salcedo RN Position: [facility] RN Member Role: Primary Care Nurse Name: Radha Ayers NP Position: [facility] Associate Professional Member Role: Primary Care Nurse Address: Address: [address] [place] [address]- [place] Name: Nehal Matthews RN Position: [facility] RN Member Role: Primary Care Nurse Name: Rita Aparicio RN Position: [facility] RN Member Role: Primary Care Nurse Name: Ana Armendariz RN Position: [facility] AMB Nurse Member Role: Primary Care Nurse Name: Cristobal Alvarez RN Position: [facility] SN RN Member Role: Primary Care Nurse Name: Josselyn Gama RN Position: [facility] ED RN W/OE and Tasks Member Role: Primary Care Nurse Name: Daniele Medina RN Position: [facility] RN Member Role: Primary Care Nurse Name: Lisset Cornelius RN Position: [facility] RN Member Role: Primary Care Nurse Name: Elis Chaparro RN Position: [facility] RN Member Role: Primary Care Nurse Name: Olivia Tejada RN Position: [facility] RN Member Role: Primary Care Nurse Name: Brandee Grey MD Position: Reference Physician Member Role: PCP Address: Address: [address] [place] [address]- [place] Name: Dari Oliva RN Position: [facility] RN Member Role: Primary Care Nurse Name: Josselyn Khan MD Position: [facility] ED Medicine MD Member Role: Admitting Physician Address: Address: [address] [place] [address]- [place] Name: Samanta Turner RN Position: [facility] ED RN W/OE and Tasks Member Role: Patient Care Provider Name: Lisa Green Position: [facility] ED [facility] Member Role: Bagging Salvager Name: Kelly Castaneda MD Position: [facility] Resident Member Role: ED Resident Address: Address: [address] [place] [address] [place] [address]- Care Team Related Persons Name: REVA DEL TORO Address: home [address] [place] [address] Name: SHONA TEJADA Address: home [address] [place] [address]
[2023-03-31] MEDS: Morphine Sulfate 4 MG/ML CARTRIDGE IVPUSH (07:24)
[2023-03-31 07:29] LABS: MANUAL DIFF FLAG NO
[2023-03-31 07:31] LABS: Basophils Percent Auto 0.3 % (0-2); Eosinophils Absolute Auto 0.1 X10*3/uL (0.0-0.4); Eosinophils Percent Auto 1.5 % (0-4); Hematocrit 33.2 % (42.0-52.0); Hemoglobin 10.7 g/dl (14.0-18.0); Imm Gran Abs Auto 0.03 X10*3/uL (0.00-0.03); Imm Gran Pct Auto 0.3 % (0.0-0.4); Lymphocytes Absolute Auto 1.1 X10*3/uL (1.2-4.9); Lymphocytes Percent Auto 12.9 % (20-40); Mean Corpuscular HGB Conc 32.2 g/dl (31.0-36.0); Mean Corpuscular Hemoglobin 27.5 pg (27.0-33.0); Mean Corpuscular Volume 85.3 fL (80.0-98.0); Mean Platelet Volume 10.1 fL (9.4-12.4); Monocytes Absolute Auto 1.3 X10*3/uL (0.1-1.2); Monocytes Percent Auto 15.5 % (2-11); Neutrophils Percent Auto 69.5 % (45-73); Platelet Count 129 X10*3/uL (160-400); Red Blood Count 3.89 X10*6/uL (4.60-5.80); White Blood Count 8.6 X10*3/uL (4.8-10.8)
[2023-03-31 07:35] LABS: INTERNATIONAL NORM RATIO 1.2 (0.9-1.1); Prothrombin Time 14.5 SEC (11.1-13.3)
[2023-03-31 07:46] LABS: COVID-19 Test Negative (Negative); IDNOW Serial# 6674DD1D
[2023-03-31 07:52] LABS: Acetaminophen LAB < 17 mcg/mL (<30); Alanine Aminotransferase 57 U/L (0-40); Albumin Level 3.3 g/dL (3.5-5.0); Alkaline Phosphatase 130 U/L (39-117); Anion Gap 11 (12-20); Aspartate Amino Transferase 111 U/L (5-37); Bilirubin Total 1.2 mg/dL (0.0-1.0); Blood Urea Nitrogen 34 mg/dL (9-16); Carbon Dioxide 23 mmol/L (22-29); Chloride 109 mmol/L (96-108); Creatinine Clr Calc Pharmacy 93.9; Estimated Glomerular Filt Rate > 60; Ethanol < 10 mg/dL; Glucose Random 73 mg/dL (60-115); Lipase 6 U/L (8-78); Magnesium 1.9 mg/dL (1.6-2.6); Salicylate < 5.0 mg/dL (15-30); Sodium 139 mmol/L (135-145); Total Protein 7.9 g/dL (6.5-8.0)
[2023-03-31 07:56] LABS: B Type Natriuretic Peptide 213 pg/mL (<100)
[2023-03-31 08:24] VITALS: BP 144/80; PULSE 83; RESP 14; O2SAT 93
[2023-03-31] MEDS: iohexoL 350 MG/ML 100 ML INFUS..BTL 85 ML IV (08:31)
[2023-03-31] MEDS: 0.9 % Sodium Chloride 1,000 ML 999 ML IV ×2 (08:45→08:46)
--- NOTE | 2023-03-31 08:57 | PC.NURSE ---
this RN placed 20g in LAC, fluids running. C-collar in place still. Pt resting, respirations even and unlabored, skin pwd, alert and oriented x4. Pt has extensive wound on right foot. OSVALDO Covarrubias, this RN and JESSICA Burks removed bandage of right foot. Images taken by JESSICA. No active drainage or bleeding at this time
[2023-03-31 09:15] LABS: C Reactive Protein 3.53 mg/dL (< or = 0.50)
[2023-03-31 09:20] LABS: Lactic Acid 0.8 mmol/L (0.5-2.0)
[2023-03-31 09:24] LABS: Troponin-I High Sensitivity 16.1 ng/L (<3.5-35.0)
[2023-03-31 09:50] VITALS: BP 139/75; PULSE 80; RESP 13; TEMP 37.1; O2SAT 95
[2023-03-31] MEDS: Piperacillin Sodium/Tazobactam 3.375 GM in 0.9 % Sodium Chloride 50 ML IV (09:50)
[2023-03-31 09:51] LABS: Erythrocyte Sedimentation Rate 33 MM/HR (0-15)
[2023-03-31] MEDS: Lidocaine 4 % Patch ADH..PATCH 1 PATCH TRANSDERMA (10:04)
[2023-03-31 10:14] LABS: Appearance Urine Clear; Color Urine Yellow; Glucose Urine UA Negative (Negative); Leukocyte Esterase Urine Negative (Negative); Nitrite Urine Negative (Negative); Specific Gravity - Urine >= 1.030 (1.005-1.025); Urine Blood Negative (Negative); Urine Ketones Trace mg/dL (Negative); Urine Protein Negative (Neg-Trace)
[2023-03-31 10:23] LABS: Amphetamine Screen Urine Not Detected (Not Detect); Barbiturates, Urine Not Detected (Not Detect); Benzodiazepines Screen Urine Not Detected (Not Detect); Cannabinoid Screen Urine Not Detected (Not Detect); Cocaine Screen Urine POSITIVE (Not Detect); Fentanyl, urine POSITIVE (Not Detect); Opiate Screen Urine POSITIVE (Not Detect); Phencyclidine Screen Urine Not Detected (Not Detect)
== END 2023-03-31 11:07 | disposition short-term general hospital (02) ==
PROVIDERS: Physician Assistant; Emergency Provider Emergency Medicine Emergency Medical Services
DX: M62.82 Rhabdomyolysis (principal); S22.49XA Multiple fractures of ribs, unspecified side, initial encounter for closed fracture; M54.50 Low back pain, unspecified; R10.2 Pelvic and perineal pain; R06.02 Shortness of breath; M54.6 Pain in thoracic spine; E86.0 Dehydration; W18.30XA Fall on same level, unspecified, initial encounter; Y93.9 Activity, unspecified; Y92.9 Unspecified place or not applicable; Y99.9 Unspecified external cause status; Z20.822 Contact with and (suspected) exposure to COVID-19; Z20.828 Contact with and (suspected) exposure to other viral communicable diseases; Z87.891 Personal history of nicotine dependence; Z79.899 Other long term (current) drug therapy
CPT/HCPCS: 36415; 70450; 71260; 72125; 74177; 80053; 80143; 80179; 80307; 81003; 82550; 83605; 83690; 83735; 83880; 84484; 85025; 85610; 85652; 86140; 87040; 87635; 93005; 96361; 96365; 96375; 99285; J2270; J2543; Q9967

== ENCOUNTER 2023-04-14 19:09 | Emergency (ER) | payer MEDICARE, MEDICAID, SELFPAY ==
[2023-04-14 19:37] VITALS: BP 150/76; PULSE 98; O2SAT 96
[2023-04-14 19:41] VITALS: PULSE 86; RESP 16; TEMP 36.8; O2SAT 99; BMI 22.8
--- OUTSIDE RECORDS SUMMARY | 2023-04-14 19:59 | XMS_ITS | Continuity of Care Document ---
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 Name Role Phone Que MCKEON, Brandee Primary Care Physician [place] [facility] [place] 03/31/23 - 04/13/[address] [address]- Encounter Diagnosis Thoracic compression fracture(Final) - 03/31/23 Heroin abuse(Final) - 03/31/23 Fall(Final) - 03/31/23 Leg wound, right(Final) - 03/31/23 Discharge Disposition: A-D/C Home Attending Physician: Dutch Lawler MD Admitting Physician: Yuki Brush DO Referring Physician: Not on Staff, Referring MD Allergies, Adverse Reactions, Alerts Substance Reaction Severity Status traZODone Active Immunizations Given and Recorded Vaccine Date Status Refusal Reason [id number] 12y+ bivalent booster vax 08/02/22 Recorded SARS-CoV-2 mRNA ([id number]) vax 02/18/22 Recorded SARS-CoV-2 (COVID-19) mRNA BNT-162b2 vac 06/22/21 Recorded SARS-CoV-2 (COVID-19) mRNA BNT-162b2 vac 02/24/21 Recorded zoster vaccine, inactivated 03/25/21 Recorded influenza virus vaccine, inactivated 06/24/20 Memo rded influenza virus vaccine, inactivated 11/02/18 Memo rded influenza virus vaccine, inactivated 10/02/17 Memo rded tetanus/diphtheria/pertussis, acel(Tdap) 06/24/20 Recorded hepatitis B adult vaccine 02/13/20 Recorded Hepatitis A Adult Vaccine 02/13/20 Recorded pneumococcal 23-valent vaccine 10/02/17 Recorded Medications doxycycline monohydrate 100 mg oral tablet 1 tablet = 100 mg, By Mouth, Every 12 hours, for 6 days, # 12 tablet, 0 Refills, Acute 04/19/23 11:30:00 EDT, 04/13/23 11:30:00 EDT, Tablet, [facility], Partial fill upon patient request if the prescription is for a schedule II opioid dr... Start Date: 04/13/23 Stop Date: 04/19/23 Status: Ordered FLUoxetine 40 mg oral capsule 1 capsule = 40 mg, By Mouth, Daily, # 30 capsule, 1 Refills, Maintenance, 12/20/22 12:05:00 EDT, Capsule, [facility], Partial fill upon patient request if the prescription is for a schedule II opioid drug., 178, cm, 12/20/22 7:27:00 EDT,... Start Date: 12/20/22 Stop Date: 04/20/23 Status: Ordered hydrOXYzine hydrochloride 25 mg oral tablet 1 tablet = 25 mg, By Mouth, 4 times a day, PRN for anxiety, # 40 tablet, 0 Refills, Maintenance, 04/01/23 4:47:00 EDT, Tablet, Partial fill upon patient request if the prescription is for a schedule II opioid drug. Start Date: 04/01/23 Status: Ordered Methadone = 60 mg, By Mouth, Daily, 0 Refills, Maintenance, 07/01/22 14:36:00 EST, Partial fill upon patient request if the prescription is for a schedule II opioid drug. Start Date: 07/01/22 Status: Ordered Methadone Tablet 60 mg, Tablet, By Mouth, 04/13/23 9:00:00 EDT Start Date: 04/13/23 Stop Date: 04/13/23 Status: Completed prazosin 1 mg oral capsule 1 mg, 1, capsule, By Mouth, Daily at bedtime, # 30 capsule, Refills 1, Tot. Refills 1, Maintenance,12/20/22 12:06:00 EDT, Route to Pharmacy Electronically, [facility], Partial fill upon patient request if the prescription is for a sched... Start Date: 12/20/22 Status: Ordered prazosin 1 mg oral capsule 1 mg, Capsule, By Mouth, 04/12/23 21:00:00 EDT Start Date: 04/12/23 Stop Date: 04/12/23 Status: Completed Problem List Condition Confirmation Course Effective Dates Status Health St atus Informant Lower extremity cellulitis Confirmed Active COVID-19 Confirmed Active CANDI (generalized anxiety disorder) Confirmed Active ZAY (acute kidney injury) Confirmed Active Leukocytosis Confirmed Active MDD (major depressive disorder) Confirmed Active Sepsis Confirmed Active Results Orders for Microbiology Reports Name Date Blood Culture 03/31/23 Blood Culture #2 03/31/23 Microbiology Reports TEST:Blood Culture, Second Order STATUS:Auth (Verified) BODY SITE: SOURCE:Blood COLLECTED DATE/TIME:03/31/23 12:43 PM Blood Culture, Second Order SPECIMEN DESCRIPTION : BLOOD R AC SPECIAL REQUESTS : NONE CULTURE : NO GROWTH 5 DAYS. REPORT STATUS : FINAL 04/05/2023 TEST:Blood Culture STATUS:Auth (Verified) BODY SITE: SOURCE:Blood COLLECTED DATE/TIME:03/31/23 12:40 PM Blood Culture SPECIMEN DESCRIPTION : BLOOD LEFT HAND SPECIAL REQUESTS : NONE CULTURE : NO GROWTH 5 DAYS. REPORT STATUS : FINAL 04/05/2023 Radiology Reports * Exam Date Time Procedure Performing Provider Status 03/31/23 3:46 PM MRI Thoracic Spine W+W/O Contrast Gagn on, Mendoza Rodriguez (Verified) Notes: (MRI Thoracic Spine W+W/O Contrast) Reason For Exam: Epidural abscess/osteo, subacute compression fx T3-[address], IV drug use;Other: RESULT: MRI Thoracic Spine W+W/O Contrast MRI Thoracic Spine W+W/O Contrast INDICATION: Hx of Present Illness: Thoracic spine fx; Reason: Other:; Epidural abscess osteo, subacute compression fx T3-[address], IV drug use; Clinical Question(s): Epidural Empyema; Osteomyelitis; Special Instructions: obtain within six hours; Order Comment: Please see Reference Text for complete list of contraindications Epidural Empyema TECHNIQUE: MRI of the thoracic spine was performed with and without intravenous contrast utilizing sagittal T1, sagittal T2, sagittal STIR, axial T1, and fat- saturated axial T2-weighted sequences, and post-contrast sagittal T1 and fat- saturated axial T1-weighted sequences. 18 mL of Clariscan was administered intravenously. COMPARISON: CT chest 03/31/2023 in [facility]. FINDINGS: LOCALIZER: No additional findings on limited localizer images. ALIGNMENT, VERTEBRAE, MARROW, AND DISCS: Alignment is normal. There is mild loss of height of the T3 and T4 vertebral bodies, with mild superior endplate concavity is . There is trace T2 prolongationwithin superior endplate Schmorl's nodes at these levels, but no adjacent marrow edema to suggest acute fracture. Vertebral marrow signal is otherwise preserved. There are scattered mild disc desiccation and mild loss of disc space in the mid thoracic spine. No abnormal fluid signal or abnormal enhancement is seen within the disc spaces. Other bones: Chronic fractures of the left posterior 10th and 11th ribs are present with bony remodeling, without edema at this level. More medially, however, there is edema in the posterior medial left 10th and 11th ribs immediately adjacent to the costovertebral junctions, with mild adjacent enhan cement. There appears to be linear T1 and T2 hypointense signal extending through the heads of the ribs at this level (7:55, 61), suggestive of fracture, occult on CT. There is a small amount of surrounding paraspinal edema and enhancement. CORD: The thoracic cord is normal in signal and contour. There is no abnormal intradural or epidural enhancement. There is no epidural fluid collection. PARASPINAL TISSUES: Trace bilateral pleural effusions are present. There is mild edema adjacent to the left posterior 10th and 11th ribs adjacent to the costovertebral junctions. No fluid collection or abscess is seen. Well- circumscribed nonenhancing bilateral renal cysts are present, greater on the left measuring up to 9 mm . FINDINGS BY LEVEL: No significant central stenosis or neural foraminal narrowing is seen at any level in the thoracic spine. IMPRESSION: 1. Edema associated with the left posterior medial 10th and 11th ribs immediately adjacent to the costovertebral junction, with apparent fracture lines at these sites (more medial to the chronic fractures in the posterior left 10th and 11th ribs seen on CT). Adjacent paraspinal edema and enhancement is likely reactive to recent fracture. However, given risk factors for infection, suggest correlation with inflammatory markers and follow-up to ensure resolution and exclude costovertebral joint pathology. 2. Mild superior endplate compression deformity of T3 and T4. There is trace edema within Schmorl'snodes at these levels, but no edema in the adjacent marrow to suggest acute fracture. No subluxation. 3. No epidural phlegmon/abscess, discitis/osteomyelitis, high-grade stenosis, or other acute abnormality of the thoracic spine. WSN: [id number] Ordering Physician: Len Riggs Dictated By: Rosibel Ingram MD Dictated Date/Time: 03/31/23 4:34 pm Reviewed By: Rosibel Ingram MD Signed By: Rosibel Ingram MD Signed Date/Time: 03/31/23 4:34 pm Transcribed By: ANGELICA Transcribed Date/Time: 03/31/23 4:09 pm Vital Signs Most recent to oldest [Reference Range]: 1 2 3 Height 175 cm (04/13/23 12:09 PM) 175 cm (04/13/23 7:57 AM) 175 cm (04/12/23 8:37 PM) Weight 81 kg (04/02/23 1:51 PM) 90 kg (04/02/23 3:33 AM) 90 kg (04/01/23 3:57 PM) Oxygen Saturation [94-100 %] 96 % (04/13/23 12:09 PM) 98 % (04/13/23 7:57 AM) 98 % (04/12/23 8:37 PM) Pulse Rate [55-90 bpm] 96 bpm *H* (04/13/23 12:09 PM) 64 bpm (04/13/23 7:57 AM) 72 bpm (04/12/23 8:37 PM) Body Mass Index [18.5-24.99 kg/m2] 26.45 kg/m2 *H* (04/02/23 1:51 PM) 29.39 kg/m2 *H* (04/02/23 3:33 AM) 29.39 kg/m2 *H* (04/01/23 3:57 PM) Blood Pressure [90-138/55-84 mm Hg] 120/64mm Hg (04/13/23 12:09 PM) 121/57mm Hg (04/13/23 7:57 AM) 132/65mm Hg (04/12/23 10:42 PM) Respiratory Rate [16-30 br/min] 18 br/min (04/13/23 12:09 PM) 16 br/min (04/13/23 11:10 AM) 18 br/min (04/13/23 8:03 AM) Temperature [96.8-100.4 DegF] 98.9 DegF (04/13/23 12:09 PM) 98.1 DegF (04/13/23 7:57 AM) 98.5 DegF (04/12/23 8:37 PM) Liters per Minute 0 L/min (04/07/23 8:00 AM) Mode of Delivery (Oxygen) Room air (04/13/23 12:09 PM) Room air (04/13/23 7:57 AM) Room air (04/12/23 8:37 PM) Blood pressure sites Arm, right (04/13/23 12:09 PM) Arm, right (04/13/23 7:57 AM) Arm, left (04/12/23 8:37 PM) Temperature Route Oral (04/13/23 12:09 PM) Oral (04/13/23 7:57 AM) Oral (04/12/23 8:37 PM) Dry Weight 81 kg (04/02/23 1:51 PM) 90 kg (04/02/23 3:33 AM) 90 kg (04/01/23 3:57 PM) Weight Obtained Via Bed scale (04/02/23 1:51 PM) Dry Weight Obtained Via Bed scale (04/02/23 1:51 PM) History and physical note * Yuki Brush DO: MODIFY, MODIFY, PERFORM, MODIFY, MODIFY Event Display: History and Physical Hospital Authored Date: Patient: ??RENEE CORNELIUS ? Age:??67 Years?Sex:??Male?:??1955?? Chief Complaint/Reason for Consultation Coming from [facility], SP fall, hit chest on curb, fractured T3/T4. + Fentanyl, opiods, cocaine. Wound to R foot. Homeless. AMS - unsure of baseline. History of Present Illness This is a 67-year-old male with past medical history??anxiety,??depression,??polysubstance??drug abuse,??and chronic right lower extremity wounds??who currently presents to the hospital as a transferfrom [facility] ED??where he presented after a fall??last night.?? The patient reports??that it was raining and he was walking downhill??when he slipped, causing him??to fall.?? He reported??feeling pain in his mid back??after the fall.?? He was taken to [facility] ED??and was found to have subacute T3 and T4 compression fractures.?? There is no evidence of??epidural abscess or osteomyelitis/discitis.?? He denies any??pain radiating down his legs,??though he does report chronic numbness of his feet.?? He denies any bowel or bladder incontinence, or saddle anesthesia.?? Here the patient was noted to be afebrile with stable vital signs.?? Lab work showed him to have a white count of 7.5 with a hemoglobin of 10.2 platelet count 123.?? He does have chronic thrombocytopenia.?? Other labs showed a slightly low bicarb level of 21 with a BUN of 27 and creatinine of 0.7.?? CRP was 3.4 with a sed rate of 35.?? CK was noted to be 848??here??(CK was in the 1500s at [facility]).?? The patient did undergo MRI of the thoracic spine with and without contrast here that showed some edema associated with the left posterior medial 10th and 11th ribs with apparent fracture lines at the site.?? The paraspinal adjacent edema is felt to be likely reactive.?? There is also note of compression deformity of T3 and T4.?? Patient was seen in consultation by neurosurgery and no surgical inter vention was recommended.?? Recommendation was for pain control medical management and supportive care.?? The patient is now admitted for further management. Review of Systems A complete review of systems was obtained and noted to be negative except as stated above in the HPI. Objective Measurements?? Height: 175 cm (04/01/23) Weight: 90 kg (04/01/23) Dry Weight: 90 kg (04/01/23) Body Mass Index:??29.39 kg/m2??High (04/01/23) ? Vital Signs?? Temperature: 98.2 DegF (03/31/23 21:00:00) Temperature Route: Oral (03/31/23 21:00:00) Pulse Rate: 75 bpm (04/01/23 02:54:00) Respiratory Rate: 16 br/min (04/01/23 02:54:00) Systolic Blood Pressure: 126 mm Hg (04/01/23 02:54:00) Diastolic Blood Pressure: 66 mm Hg (04/01/23 02:54:00) Blood pressure sites: Arm, right (04/01/23 01:58:00) Mean Arterial Pressure: 86 mm Hg (04/01/23 02:54:00) Pulse Pressure: 60 mm Hg (04/01/23 02:54:00) Oxygen Saturation: 96 % (04/01/23 02:54:00) Mode of Delivery (Oxygen): Room air (04/01/23 01:58:00) Early Warning Score: 3 (04/01/23 02:54:44) ? Physical Exam General: Alert, in no acute cardiopulmonary distress. Mental Status: Oriented to person, place and time. Normal affect. Head: Normocephalic. Eyes: Pupils are equal, round and reactive to light. Extraocular muscles intact. Ear, Nose and Throat: Oropharynx clear, mucous membranes moist. Ears and nose without masses, lesions or deformities. Trachea midline. Neck: Supple, Full range of motion. Respiratory: Clear to auscultation and percussion. No wheezing, rales or rhonchi. Cardiovascular: Heart sounds normal. Regular rate and rhythm, no murmurs, rubs or gallops. Gastrointestinal: Abdomen soft, non-tender, non-distended. Normal bowel sounds. No pulsatile mass. No hepatosplenomegaly. Neurologic: Cranial nerves II-XII grossly intact. No focal neurological deficits. Moves all extremities spontaneously. Sensation intact bilaterally. Skin: No rashes or lesions. No petechiae or purpura. No edema. Musculoskeletal: No cyanosis or clubbing. No gross deformities. Normal range of motion. Assessment/Plan This is a 67-year-old male with past medical history as noted above,??[facility]??where he presented after a fall.?? He is noted to have evidence of??T3/T4 compression deformity. ??He was evaluated by neurosurgery??and no surgical intervention is needed.?? He is now admitted for further management. ?? Fall ??(W19.XXXA) Heroin abuse ??(F11.10) Thoracic compression fracture ??(S22.000A) This patient will be admitted to an inpatient medical bed. ??He presents after??mechanical??that likely occurred in the setting of his drug use.?? He was found to have??T3??and T4 compression fractures.?? We will manage with conservative??treatment including pain medication as needed. ??We will also ask physical therapy to evaluate the patient.?? The patient reports that he does have chronic??forhis history of heroin abuse,??and his dose of??methadone 30 mg daily needs to be verified in the morning.?? He states that he gets his medications in [place]??on [facility],??but was unsure of the facility name. ?? Leg wound, right ??(S8.801A) Patient has chronic??right lower extremity??wounds.?? We will ask??wound care to follow. ??He is reports that his??routine care is through the [facility] wound care center. ?? Rhabdomyolysis ??(M62.82) Patient noted to have an elevated CPK here,??but lower than his CPK at [facility].?? We will??place him on gentle IV fluid hydration and continue to monitor. ??His CK??to make sure it is going down. ?? Anxiety and depression. Patient on fluoxetine which we will continue presently.?? He also uses hydroxyzine as needed??for anxiety. ?? Anemia Thrombocytopenia??noted since??2020. Patient noted to have low platelet count, but this has been??noted previously.?? His anemia is stable around his usual baseline. ?? CODE STATUS. ??Patient is a full code. ?? DVT prophylaxis. ??We will use subcu Lovenox and encourage early mobilization. ?? Patient seen on March 31, 2023. Total time spent with patient and in coordination of care: including reviewing the chart/medical records, speaking with the patient, formulating and discussing the treatment plan, and documenting thefindings and encounter: ??70 + min ? Histories Allergies Allergies ?(Active and Proposed Allergies Only) traZODone? (Severity: Unknown severity, Onset: Unknown) ? Past Medical History/Problem List Active Problems??(7) ZAY (acute kidney injury) COVID-19 CANDI (generalized anxiety disorder) Leukocytosis Lower extremity cellulitis MDD (major depressive disorder) Sepsis ? Past Surgical History Right inguinal hernia repair ? Social History Patient is currently homeless. He smokes??quarter pack a day for about 40 years, and quit 2 years ago. Denies significant alcohol intake. He does admit to??drug use including??heroin use,??states he is on chronic methadone??treatment. ??He does report using heroin??yesterday??because he could not get his methadone. ?? Family Medical History Patient's mother at 80 with diabetes and heart disease.?? Patient's father is buthe??does not know his medical history. Medications Home Medications??(Confirmed with the patient) Fluoxetine (FLUoxetine 40 mg oral capsule)?1?capsule?40?Milligram?By Mouth?Daily Methadone?30?Milligram?Daily Prazosin (prazosin 1 mg oral capsule)?1?Milligram?1?capsule?By Mouth?Daily at bedtime Hydroxyzine 25 mg??4 times a day as needed for anxiety ? Results Recent Labs BLOOD COUNT & DIFF WBC 7.5 k/mm3 ()?? 03/31/2023 12:40 RBC 3.67 m/mm3 (Low)?? 03/31/2023 12:40 Hgb 10.2 Gm/dL (Low)?? 03/31/2023 12:40 Hct 31.7 % (Low)?? 03/31/2023 12:40 MCV 86.4 femtoliters ()?? 03/31/2023 12:40 MCH 27.8 pg ()?? 03/31/2023 12:40 MCHC 32.2 g/dL (Low)?? 03/31/2023 12:40 Platelet Count 123 k/mm3 (Low)?? 03/31/2023 12:40 RDW-SD 47.3 femtoliters (High)?? 03/31/2023 12:40 MPV 10.1 femtoliters ()?? 03/31/2023 12:40 Nucleated RBC (Automated) 0.0 #/100 WBC'S ()?? 03/31/2023 12:40 Abs. NRBC 0.0 k/mm3 ()?? 03/31/2023 12:40 Abs. Neut 5.0 k/mm3 ()?? 03/31/2023 12:40 Abs. Lymph 1.1 k/mm3 ()?? 03/31/2023 12:40 Abs. [place] 1.1 k/mm3 ()?? 03/31/2023 12:40 Abs. Eo 0.2 k/mm3 ()?? 03/31/2023 12:40 Abs. Baso 0.0 k/mm3 ()?? 03/31/2023 12:40 Neut % 67.0 % ()?? 03/31/2023 12:40 Lymph % 15.1 % ()?? 03/31/2023 12:40 [place] % 14.7 % (High)?? 03/31/2023 12:40 Eos % 2.3 % ()?? 03/31/2023 12:40 Baso % 0.5 % ()?? 03/31/2023 12:40 Imm Gran 0.4 % ()?? 03/31/2023 12:40 Abs. Imm Gran 0.0 k/mm3 ()?? 03/31/2023 12:40 ?? CARDIAC CK, Total 848 units/L (High)?? 03/31/2023 17:32 ?? CHEM GENERAL Sodium 139 mmol/L ()?? 03/31/2023 12:40 Potassium 3.9 mmol/L ()?? 03/31/2023 12:40 Chloride 107 mmol/L ()?? 03/31/2023 12:40 Bicarbonate Level 21 mmol/L (Low)?? 03/31/2023 12:40 Anion Gap 11 ()?? 03/31/2023 12:40 Glucose Level 74 mg/dL ()?? 03/31/2023 12:40 BUN 27 mg/dL (High)?? 03/31/2023 12:40 Creatinine-Blood 0.7 mg/dL ()?? 03/31/2023 12:40 Estimated GFR Creatinine 100 ML/MIN/1.73 M2 ()?? 03/31/2023 12:40 Calcium 8.3 mg/dL (Low)?? 03/31/2023 12:40 Lactate 1.0 mmol/L ()?? 03/31/2023 12:40 C-Reactive Protein 3.4 mg/dL (High)?? 03/31/2023 12:40 ?? HEME OTHER Sed Rate 35 mm/hr (High)?? 03/31/2023 12:40 ?? URINE OTHER Est Creatinine Clearance 103.46 mL/min ()?? 03/31/2023 13:35 ?? VIROLOGY COVID-19 by RT-PCR NEGATIVE ()?? 03/31/2023 13:41 ? Imaging(s) ?Other Image ?EKG showing normal sinus rhythm with a heart rate of 74 some nonspecific T wave changes. QTc prolonged at 486 ms. ? (03/31/2023 15:46 EDT MRI Thoracic Spine W+W/O Contrast) ?? IMPRESSION: 1. Edema associated with the left posterior medial 10th and 11th ribs immediately adjacent to the costovertebral junction, with apparent fracture lines at these sites (more medial to the chronic fractures in the posterior left 10th and 11th ribs seen on CT). Adjacent paraspinal edema and enhancement is likely reactive to recent fracture. However, given risk factors for infection, suggest correlation with inflammatory markers and follow-up to ensure resolution and exclude costovertebral joint pathology. 2. Mild superior endplate compression deformity of T3 and T4. There is trace edema within Schmorl'snodes at these levels, but no edema in the adjacent marrow to suggest acute fracture. No subluxation. 3. No epidural phlegmon/abscess, discitis/osteomyelitis, high-grade stenosis, or other acute abnormality of the thoracic spine. [1] [1]??MRI Thoracic Spine W+W/O Contrast; Rosibel Ingram MD 03/31/2023 15:46 EDT EKG study * Event Display: ECG 12-Lead Authored Date: Please click on pdf link to open report * Event Display: ECG 12-Lead Authored Date: Ventricular Rate: 74 BPM Atrial Rate: 74 BPM P-R Interval: 176 ms QRS Duration: 84 ms Q-T Interval: 438 ms QTC Calculation(Bazett): 486 ms P Dallas: 43 degrees R Dallas: 50 degrees T [place]: 47 degrees Normal sinus rhythm Prolonged QT Abnormal ECG When compared with ECG of 11-DEC-2022 13:42, Nonspecific T wave abnormality, improved in Inferior leads T wave inversion no longer evident in Anterior leads Confirmed by [facility] ([id number]) on 04/01/2023 9:08:34 AM [place]: [facility] * Terrie Barreto: PERFORM Event Display: [facility] Authored Date: Patient: ??RENEE CORNELIUS ? Age:??67 Years?Sex:??Male?:??1955? To whom it may concern, ?? Mr. Olvin Cornelius (date of 1955)??received his last dose of methadone 60 mg??once dailyon??04/13/2023??at 0803.?? Please feel free to reach out with any questions or concerns. ?? Sincerely, ?? JESSICA [facility] * Sylvia Kumar RN: PERFORM, SIGN, VERIFY Event Display: [facility] Authored Date: Patient: RENEE CORNELIUS Age: 67 years Sex: Male : 1955 Associated Diagnoses: None Author: Sylvia Kumar RN Findings Problem Related to Alteration in Integumentary : Alteration in Integumentary/new 04/13/2023 11:00 EDT Alteration in Integumentary Related to Venous or Arterial Insufficiency Goals & Outcomes, Integumentary Nutritional intake is adequate for metabolic needs, Pt will maintain adequate fluid & nutritional balance, Pt will maintain intact skin integrity, Wound will progress towards healing Interventions, Integumentary Keep linen clean, dry and wrinkle free, Keep skin clean & dry, Maintain sterile technique with dressing changes, Minimize friction, shear and moisture BH Goals/Interventions, Integumentary Yes Integumentary, Problem Start 04/04/2023 15:56 Reviewed plan with, Integumentary Patient Patient Progression, Integumentary Pt progressing according to plan . Narrative/Incidental Patient A/O x4, cooperative with care. Patient has no c/o pain. Patient has RLE dressing C/D/I, dueto be changed tomorrow as order states every other day. Patient due to be dc'd today, will most likely go to d/c unit shortly. This nurse will give patient some wound care supplies. Patient's safety/comfort maintained by hourly rounds and call vargas within reach. . Discharge Information Rehabilitation Discharge : Rehab Discharge Index 04/12/2023 16:33 EDT Walker: distance >50 04/11/2023 12:19 EDT Walker: distance >50 04/08/2023 14:30 EDT Comments on treatment indicated 67 y/o male s/p fall. He is noted to have evidence of T3/T4 compression deformity. He was evaluated by neurosurgery and no surgical intervention is needed. PT for balance training, gait training and stair training. Rec d/c to rehab. Walker: distance >50 Distance pt will ambulate 300 Full chart review completed Yes Plan of care PT Gait training, Functional Activities, Balance training * Kassy Serrato RN: PERFORM, SIGN, VERIFY Event Display: Progress Note Hospital Authored Date: [id number] Patient: RENEE CORNELIUS Age: 67 years Sex: Male : 1955 Associated Diagnoses: None Author: Kassy Serrato RN Findings Narrative/Incidental pt ambulates independently but requires walker assistance for extended distances. c/o of 9/10 leg pain, given tylenol with good result. pt's pain and comfort needs met.. Discharge Information Rehabilitation Discharge : Rehab Discharge Index 04/12/2023 16:33 EDT Walker: distance >50 04/11/2023 12:19 EDT Walker: distance >50 04/08/2023 14:30 EDT Comments on treatment indicated 67 y/o male s/p fall. He is noted to have evidence of T3/T4 compression deformity. He was evaluated by neurosurgery and no surgical intervention is needed. PT for balance training, gait training and stair training. Rec d/c to rehab. Walker: distance >50 Distance pt will ambulate 300 Full chart review completed Yes Plan of care PT Gait training, Functional Activities, Balance training Consult note * Sarbjit GRAFF, Beba Elena: PERFORM Event Display: Consultation Note Authored Date: [id number] Patient: ??RENEE CORNELIUS ? Age:??67 Years?Sex:??Male?:??1955?? Chief Complaint Right lower leg and right foot Reason for Consultation Right lower leg and right foot History of Present Illness Patient is a 67-year-old male seen at request the medical service for evaluation of right lower legand right foot. ??Patient was admitted on 03/31??status post??fall??and AMS; transferred from [facility]. ??HPI obtained from chart review and patient. ??Patient reports??chronic??history of right leg ulcer??for approximately 12 years??due to suspected infection from??scratching leg??with??dirty nails??after cleaning??a dirty bathtub.?? Patient reports??ulcers??have never healed but will get smaller.?? Patient reports occasional??swelling to??bilateral legs;??right leg worse than left leg. ??Patient reports??he is awaiting a vascular procedure to right leg??to replace my veins with new veins ??but was informed that his wounds need to heal??prior to the procedure.?? Patient reports??discomfort to right lower leg with walking;??uses cane to assist with ambulation. ??Patient??recently establish care with [facility] wound care center;??currently uses calcium alginate??AG??for dressings and??Tubigrip for compression. ??Patient reports??he is experiencing an sheltered homelessness at this time.? PMH: anxiety,??depression,??polysubstance??drug abuse,??chronic right lower extremity wounds? PSH: Denies history of surgeries ?? Social Hx: Denies history of drug use;??history of polysubstance drug use??listed on chart ?? FMH: Denies pertinent FMH Review of Systems Constitutional:??Denies fever/chills. Eyes:??No vision changes ENT:??No hearing loss, sneezing, congestion, runny nose or sore throat. Respiratory:??No shortness of breath, cough. Cardiovascular:??No chest pain or palpitations. Gastrointestinal:??No anorexia, N/V/D, or abdominal pain. :??Denies??urinary incontinence Neurologic:??No headache, dizziness. Musculoskeletal:??See HPI Skin:??No rash or itching. See HPI Physical Exam Vitals & Measurements T:??97.5?F?? TMIN:??97.5?F?? TMAX:??98.8?F?? HR:??68??(Peripheral)?? RR:??18?? BP:??117/68?? SpO2:??97%?? Constitutional:??WD/WN male??in no distress. Mental Status:??Alert/oriented to person, place and time. Head: Normocephalic. Cardiac: RRR, +S1/S2.??+murmur. No rub or gallop. Respiratory: Unlabored breathing; on RA.??Lungs equal/clear to auscultation. Gastrointestinal: Abdomen soft, non-tender, +bowel sounds, protuberant. Neurologic: Moves all extremities x4 independently. Normal, coherent speech Skin: Warm, pink dry. No rashes or lesions. No petechiae or purpura.?? Musculoskeletal: No cyanosis or clubbing. Extremities:??Faint dorsalis pedis pulses bilaterally; unable to palpate right posterior tibial pulse. ??Faint pitting edema??to BLE.?? Dark brown??discolored??skin to RLE.?? Faint??left posterior tibial pulse.?? Superficial ulcer to right lateral malleolus with reddish??clean wound bed; no biofilmslough fibrinous exudate or necrotic tissue present.?? Cluster multiple ulcers to??right medial lower leg??with reddish-pink wound bed;??scant amount of biofilm; no slough??fibrinous exudate or necrotic tissue present.?? Slight epiboly to periwound edge with maceration to??periwound and surroundingarea.?? Ulcer to??dorsum of right foot??at??second metatarsal??with pink wound bed;??biofilm and fibrinous exudate present without slough or necrotic tissue noted. Psychiatric:??Euthymic mood, normal affect. Normal thought content, normal judgment. Assessment/Plan Assessment:??Pt w/PMH for anxiety,??depression,??polysubstance??drug abuse who presents with history of??chronic right lower extremity wounds. ??Patient reports??history of intermittent leg edema??and??is awaiting??vascular procedure to right leg.?? Ulcers are likely due to venous stasis with underl michael??arterial insufficiency??based on??physical assessment??and history; patient has hemosiderin deposits??to RLE with??hairless skin,??faint pitting edema,??diminished pulses,??and chronic ulcers.?? No documented??results??of vascular testing??to diagnose??venous??or??arterial insufficiency.?? Wounds do not require??sharp debridement at this time; continue with??routine wound care and dressing changes ?? Non-pressure chronic ulcer of other part of right foot with fat layer exposed (L97.512):??Clean with normal saline. Pat dry. Apply Skin-Prep to periwound. Apply Aquacel Ag to wound bed; cut to size of wound. Cover with gauze and lightly wrapped with Ismael. Change QOD.??Apply Tubigrip as prescribed. -Apply Tubigrip sock (size F) to RLE. Apply from base of toes to below knee. Wear daily for light compression. Monitor skin/perfusion status. Obtained from distribution of not available on unit ?? Non-pressure chronic ulcer of right lower leg with fat layer exposed (L97.912):??Clean with normal saline. Pat dry. Apply Skin-Prep to periwound. Apply Aquacel Ag to wound bed; cut to size of wound. Cover with gauze and lightly wrapped with Ismael. Change QOD. Apply Tubigrip as prescribed. -Apply Tubigrip sock (size F) to RLE. Apply from base of toes to below knee. Wear daily for light compression. Monitor skin/perfusion status. Obtained from distribution of not available on unit ?? Peripheral artery disease (I73.9):??Hx of PAD/PVD; awaiting outpatient vascular procedure -recommend pt f/u with vascular surgery??upon discharge??for??further work-up of possible??venous insufficiency or arterial insufficiency ?? Discharge Planning: Recommend patient resume routine wound care with??[facility]wound care center upon discharge for??long-term wound/ulcer management ? Please re-consult wound care MD/PAUL for deterioration in wound/skin status. ?? Pictures uploaded in radiography technician ?? Thank you for allowing me to participate in the care of this patient,??I appreciate the opportunity to assist??in management. My assessment and??all recommendations??have been communicated??to the patient's primary team via this documentation. Please??feel free to reach out with any??concerns??or questions.?? Problem List/Past Medical History Ongoing ZAY (acute kidney injury) COVID-19 CANDI (generalized anxiety disorder) Leukocytosis Lower extremity cellulitis MDD (major depressive disorder) Sepsis Medications Inpatient Acetaminophen Tablet, 650 mg, By Mouth, Every 4 hours, PRN Docusate/Senna Tablet, 1 tablet, By Mouth, 2 times a day, PRN Enoxaparin Inj, 40 mg= 0.4 mL, Subcutaneous Injection, Daily FLUoxetine 20 mg oral capsule, 40 mg, By Mouth, Daily hydrOXYzine pamoate 25 mg oral capsule, 25 mg, By Mouth, Every 6 hours, PRN Melatonin Tablet, 3 mg, By Mouth, Daily at bedtime, PRN Methadone Tablet, 60 mg, By Mouth, Daily MiraLax Powder, 17 Gm= 1 pack/packet, By Mouth, Daily, PRN NaCL 0.9% Flush, 3 mL, IV Push, Every 8 hours NaCL 0.9% Flush, 3 mL, IV Push, Every 8 hours, PRN prazosin 1 mg oral capsule, 1 mg, By Mouth, Daily at bedtime Robitussin DM Liquid, 10 mL, By Mouth, Every 4 hours, PRN Simethicone Tablet, 80 mg, Chew, 3 times a day, PRN Home FLUoxetine 40 mg oral capsule, 40 mg= 1 capsule, By Mouth, Daily, 1 refills hydrOXYzine hydrochloride 25 mg oral tablet, 25 mg= 1 tablet, By Mouth, 4 times a day, PRN Methadone, 60 mg, By Mouth, Daily prazosin 1 mg oral capsule, 1 mg= 1 capsule, By Mouth, Daily at bedtime, 1 refills Allergies traZODone Immunizations Vaccine Date Status tetanus/diphtheria/pertussis, acel(Tdap) - Not Given Comments : Patient Refuses pt refuses adimently SARS-CoV-2 mRNA ([id number]) vax - Not Given Comments : Patient Refuses SARS-CoV-2 (COVID-19) mRNA BNT-162b2 vac 02/24/2021 Recorded Images RLE RLE rt foot RLE * Lucho LOPEZ, Cathleen R: PERFORM Event Display: Consultation Note Authored Date: [id number] Patient: ??RENEE CORNELIUS ? Age:??67 Years?Sex:??Male?:??1955?? Provider Clinical Summary Neurosurgery Consult Note T3, T4 compression fracture Attending Neurosurgeon Dr. Morgan Consult Requested by Dr. Riggs ?? History of Present Illness Mr. Cornelius is a 67 year old man with a PMHx significant for IVDU, chronic right leg wound, CANDI, depression and prior Covid-19 infection who presented as a transfer from [facility] s/p found down on the street. MRI revealed chronic appearing T3 and T4 compression fractures (no edema to indicate acute fracture) and no evidence of SEA or??osteomyelitis /discitis; neurosurgery was consulted in light of these findings. On exam the patient is laying in bed and states that he needs his methadone . He has baseline pain and numbness??in the bilateral feet and pain all over the back. He thinks he may have fallen yesterday, but is unsure. He has back spasms. Denies any radicular pain, paresthesias, saddle anesthesias, weakness, changes in urinary or bowel patterns??or fevers. ?? Physical Exam Vitals & Measurements T:??98.1?F?? HR:??86??(Peripheral)?? RR:??20?? BP:??134/75?? SpO2:??98%?? HT:??175??cm?? WT:??90??kg?? BMI:??29.39? General:??Appears stated age, awake, alert and NAD HEENT: Normocephalic, trachea midline Respiratory:??Breathing is even and nonlabored?? Extremities:?Symmetric, no edema, no calf tenderness. Skin:??no obvious rashes Neurologic:?? Mental status: awake, alert oriented to location, date and self?? Speech is clear, fluent, and appropriate,?? follows simple and complex commands CN: tracts well around the room no facial weakness?? hearing intact to voice Motor: normal bulk and tone?? Lower Extremities- Hip Flexion:?5/5 right?5/5 left?? Knee Extension:?5/5 right?5/5 left Plantar flexion:?5/5 right?5/5 left Dorsiflexion:?5/5 right?5/5 left EHL:?5/5 right?5/5 left Sensation:?? intact to light touch throughout upper and lower extremities?? Assessment/Plan Mr. Cornelius is a 67 year old man with a PMHx significant for IVDU, chronic right leg wound, CANDI, depression and prior Covid-19 infection who presented as a transfer from [facility] s/p found down on the street. MRI revealed chronic appearing T3 and T4 compression fractures (no edema to indicate acute fracture) and no evidence of SEA or??osteomyelitis /discitis. Neuro intact. ?? Recommendations: - No acute neurosurgical intervention - Neuro checks per unit standard - No need for spinal brace, in the thoracic spine ribs act as natural brace. Additionally compression fractures are stable fractures - Pain control, medical management, and supportive care per primary team - Neurosurgery will sign off. No routine follow up. Refer back PRN ?Case/Images reviewed with attending neurosurgeon ??Eddie ?Please page [phone] with any questions or concerns? I spent a total of??20 minutes today reviewing the chart/medical records, speaking with the patient, formulating and discussing the treatment plan, and documenting the findings and encounter. ?? Problem List/Past Medical History Ongoing ZAY (acute kidney injury) COVID-19 CANDI (generalized anxiety disorder) Leukocytosis Lower extremity cellulitis MDD (major depressive disorder) Sepsis Procedure/Surgical History Denies brain or spine surgery Home Medications Acetaminophen: 650 mg, By Mouth, 2 times a day, PRN (Pain , Moderate) Cephalexin: 500 mg, By Mouth, 4 times a day Fluoxetine: 40 mg = 1 capsule, By Mouth, Daily Methadone: 30 mg, Daily Prazosin: 1 mg = 1 capsule, By Mouth, Daily at bedtime Sulfamethoxazole/Trimethoprim: 1 tablet, By Mouth, Every 12 hours Allergies traZODone Social History IVDU with heroin and cocaine Denies ETOH Occasional tobacco use Lab Results Test Name Test Result Date/Time WBC 7.5 k/mm3 03/31/2023 12:40 EDT RBC 3.67 m/mm3 03/31/2023 12:40 EDT Hgb 10.2 Gm/dL 03/31/2023 12:40 EDT Hct 31.7 % 03/31/2023 12:40 EDT MCV 86.4 femtoliters 03/31/2023 12:40 EDT MCH 27.8 pg 03/31/2023 12:40 EDT MCHC 32.2 g/dL 03/31/2023 12:40 EDT Platelet Count 123 k/mm3 03/31/2023 12:40 EDT RDW-SD 47.3 femtoliters 03/31/2023 12:40 EDT MPV 10.1 femtoliters 03/31/2023 12:40 EDT Nucleated RBC (Automated) 0.0 #/100 WBC'S 03/31/2023 12:40 EDT Abs. NRBC 0.0 k/mm3 03/31/2023 12:40 EDT Abs. Neut 5.0 k/mm3 03/31/2023 12:40 EDT Abs. Lymph 1.1 k/mm3 03/31/2023 12:40 EDT Abs. [place] 1.1 k/mm3 03/31/2023 12:40 EDT Abs. Eo 0.2 k/mm3 03/31/2023 12:40 EDT Abs. Baso 0.0 k/mm3 03/31/2023 12:40 EDT Neut % 67.0 % 03/31/2023 12:40 EDT Lymph % 15.1 % 03/31/2023 12:40 EDT [place] % 14.7 % 03/31/2023 12:40 EDT Eos % 2.3 % 03/31/2023 12:40 EDT Baso % 0.5 % 03/31/2023 12:40 EDT Imm Gran 0.4 % 03/31/2023 12:40 EDT Abs. Imm Gran 0.0 k/mm3 03/31/2023 12:40 EDT Sed Rate 35 mm/hr 03/31/2023 12:40 EDT Sodium 139 mmol/L 03/31/2023 12:40 EDT Potassium 3.9 mmol/L 03/31/2023 12:40 EDT Chloride 107 mmol/L 03/31/2023 12:40 EDT Bicarbonate Level 21 mmol/L 03/31/2023 12:40 EDT Anion Gap 11 03/31/2023 12:40 EDT Glucose Level 74 mg/dL 03/31/2023 12:40 EDT BUN 27 mg/dL 03/31/2023 12:40 EDT Creatinine-Blood 0.7 mg/dL 03/31/2023 12:40 EDT Estimated GFR Creatinine 100 ML/MIN/1.73 M2 03/31/2023 12:40 EDT Calcium 8.3 mg/dL 03/31/2023 12:40 EDT Lactate 1.0 mmol/L 03/31/2023 12:40 EDT C-Reactive Protein 3.4 mg/dL 03/31/2023 12:40 EDT COVID-19 by RT-PCR NEGATIVE 03/31/2023 12:45 EDT Images Reviewed MRI Thoracic Spine in [facility] from 03/31/23: ?? FINDINGS:? LOCALIZER: No additional findings on limited localizer images. ?? ALIGNMENT, VERTEBRAE, MARROW, AND DISCS: Alignment is normal. There is mild loss of height of the T3 and T4 vertebral bodies, with mild superior endplate concavity is . There is trace T2 prolongationwithin superior endplate Schmorl's nodes at these levels, but no adjacent marrow edema to suggest acute fracture. Vertebral marrow signal is otherwise preserved. There are scattered mild disc desiccation and mild loss of disc space in the mid thoracic spine. No abnormal fluid signal or abnormal enhancement is seen within the disc spaces.? Other bones: Chronic fractures of the left posterior 10th and 11th ribs are present with bony remodeling, without edema at this level. More medially, however, there is edema in the posterior medial left 10th and 11th ribs immediately adjacent to the costovertebral junctions, with mild adjacent enhan cement. There appears to be linear T1 and T2 hypointense signal extending through the heads of the ribs at this level (7:55, 61), suggestive of fracture, occult on CT. There is a small amount of surrounding paraspinal edema and enhancement. ?? CORD: The thoracic cord is normal in signal and contour. There is no abnormal intradural or epidural enhancement. There is no epidural fluid collection. ?? PARASPINAL TISSUES: Trace bilateral pleural effusions are present. There is mild edema adjacent to the left posterior 10th and 11th ribs adjacent to the costovertebral junctions. No fluid collection or abscess is seen. Well- circumscribed nonenhancing bilateral renal cysts are present, greater on the left measuring up to 9 mm . ?? FINDINGS BY LEVEL: No significant central stenosis or neural foraminal narrowing is seen at any level in the thoracic spine.? IMPRESSION: 1. Edema associated with the left posterior medial 10th and 11th ribs immediately adjacent to the costovertebral junction, with apparent fracture lines at these sites (more medial to the chronic fractures in the posterior left 10th and 11th ribs seen on CT). Adjacent paraspinal edema and enhancement is likely reactive to recent fracture. However, given risk factors for infection, suggest correlation with inflammatory markers and follow-up to ensure resolution and exclude costovertebral joint pathology. 2. Mild superior endplate compression deformity of T3 and T4. There is trace edema within Schmorl'snodes at these levels, but no edema in the adjacent marrow to suggest acute fracture. No subluxation. 3. No epidural phlegmon/abscess, discitis/osteomyelitis, high-grade stenosis, or other acute abnormality of the thoracic spine. ?? Note * Candace Julio RN: PERFORM Event Display: Discharge/Transfer Note Hospital Authored Date: [id number] Nursing Discharge Note Entered On: 04/13/2023 13:24 EDT Performed On: 04/13/2023 13:23 EDT by Candace Julio RN Nursing Discharge Note 2 Discharge Time : 04/13/2023 13:20 EDT Discharge Level of Care at Discharge : Home/Halfway/Foster Care Patient Left Unit Via : Wheelchair Patient Accompanied Off Unit with : Responsible adult DC Instructions Provided & Signed by Pt : Yes Patient Understands D/C Instructions : Yes Patient Instructions Discharge Signed : Yes Did Pt have Specialty Bed or Wound Vac : No Candace Julio RN - 04/13/2023 13:23 EDT * Dutch Lawler MD: MODIFY Dutch Lawler MD: MODIFY Event Display: Discharge/Transfer Note Hospital Authored Date: [id number] Patient: ??RENEE CORNELIUS ? Age:??67 Years?Sex:??Male?:??1955?? Patient Information Discharge Location: A Primary Care Physician: Brandee Grey MD Admit Date/Time: 03/31/23 17:50 Discharge Date:??04/13/2023 11:33 Discharge Disposition Discharge Disposition: Home: No Services Discharge Diagnosis Rhabdomyolysis (M62.82) Fall (W19.XXXA) Heroin abuse (F11.10) Leg edema (R60.0) Leg wound, right (S81.801A) Non-pressure chronic ulcer of other part of right foot with fat layer exposed (L97.512) Non-pressure chronic ulcer of right lower leg with fat layer exposed (L97.912) Peripheral artery disease (I73.9) Thoracic compression fracture (S22.000A) _ Discharge Medications Doxycycline (doxycycline monohydrate 100 mg oral tablet)?1?tab(s)?100?Milligram?By Mouth?Every 12 hours?for 6?Days Fluoxetine (FLUoxetine 40 mg oral capsule)?1?capsule?40?Milligram?By Mouth?Daily HydrOXYzine (hydrOXYzine hydrochloride 25 mg oral tablet)?1?tab(s)?25?Milligram?By Mouth?4 times a day?as needed?for anxiety Methadone?60?Milligram?By Mouth?Daily Prazosin (prazosin 1 mg oral capsule)?1?Milligram?1?capsule?By Mouth?Daily at bedtime Medications Started Doxycycline 100 mg BID x6 days Medications Discontinued None Doses Changed None Allergies Allergies ?(Active and Proposed Allergies Only) traZODone? (Severity: Unknown severity, Onset: Unknown) ? Hospital Course Mr. Cornelius is a 67-year-old male with a past medical history of anxiety, depression, chronic lower extremity wounds, opioid dependence on methadone who presented to the emergency department on 04/01 in the setting of a fall thoracic compression paraplegia. He was seen by neurosurgery with no surgical intervention indicated. He was also found to have acute on chronic right foot cellulitis and wounds. His wounds were discussed with vascular surgery who recommended follow-up outpatient. He will be discharged on doxycycline to complete a 7-day course to cover for cellulitis. Social work and case management attempted to find the patient housing/rest home, however the patient is not agreeable to discharge to [place] given location of his sister and dog. The only feasible option was to discharge him with an override to his desired location. He was given wound care supplies and educated on howto properly change dressing. He was encouraged to continue cessation of IV drug use and continue his methadone. He was given a last dose letter. On the day of discharge, patient reports feeling well,has no acute complaints and is ready for discharge. At this time, he is safe and stable for discharge with close and appropriate follow-up care. ?? See below see below for problem focused plan: Objective Thoracic compression fracture/fall: He presented??after??mechanical??that likely occurred in the setting of his drug use.??He was foundto have??T3??and T4 compression fractures, no evidence of??epidural abscess or osteomyelitis/discitis. Stable,??no focal neurological deficits. He was seen by neurosurgery which described no surgical intervention.?? - Continue methadone 60 mg daily (dose confirmed) - Tylenol PRN pain ? Leg wounds: Right foot cellulitis: - Continue with recommendations as per skip operator - Follow-up with vascular surgery outpatient - Continue doxycycline x7 days total ? Chronic, stable or resolved medical conditions: Rhabdomyolysis: Resolved. He was noticed to have an elevated CPK which trended down. Anxiety and depression: Continue fluoxetine.?? He also uses hydroxyzine as needed??for anxiety. Anemia/Thrombocytopenia: Chronic normocytic anemia, no signs of bleeding. Labs stable . Physical Exam Constitutional: 67-year-old male,??frail but well-appearing,??alert, in no??acute distress. Mental Status: Oriented to person, place and time. Respiratory: Clear to auscultation. No wheezing, rales or rhonchi. Cardiovascular: RRR, S1 S2 regular. No murmurs, rubs or gallops. Gastrointestinal: Abdomen soft, non-tender, non-distended. Normal bowel sounds. Extremities:??Right lower extremity with chronic venous stasis changes??from the knee down,??open wound??just above the toes with no significant drainage.?? Able to wiggle toes,??CMS intact distally Neurologic: No focal deficits. Consultants Neurosurgery Vascular surgery Patient Education Titles Doxycycline Oral Tablet?? Follow-Up Appointments Added Follow Up ?Time Frame ?Comments Priest GRAFF, Alfonso Abarca?1 month?Please call to arrange vascular surgery follow-up for your right lower extremity.?? Any provider is joshua Grey MD, Brandee?Within two weeks Patient Instructions Diagnosis: -Compression fracture -Right lower extremity wound, cellulitis ?? Important results/instructions: -Compression fracture:??You were seen by neurosurgery, no surgical intervention was needed.?? You can take Tylenol as needed for pain -Right lower extremity wound, cellulitis:??You are being discharged on a course of antibiotics to cover for possible infection in your foot wound.?? It is very important that you follow-up with vascular surgery for??your right leg as??impaired perfusion well??results and recurrent infections as youhave already noticed.?? We have given you wound care supplies??to do dressing changes every other day. He will cleanse the area with normal saline, pat dry, apply Aquacel AG to the wound (cut to the size of wound), cover with gauze and lightly wrapped with Ismael.?? Please return to the emergency department if you notice any??fever, chills,??odor of the wound, increased drainage or purulence,??wors ening swelling, redness??or pain.?? It is very important you keep the area clean and dry??to prevent worsening infection. ?? Medication changes: -Doxycycline??100 mg twice daily??for 6 days ? It was a pleasure caring for you, I am glad you are feeling better! Please follow up with your PCP in the next 1-2 weeks for a post-hospitalization follow up Post Discharge Care Diet: Regular Diet Activity: Ambulate with assistance ??3 times a day ??unless otherwise specified Wound Care: Wound Site: RLE ??Clean with normal saline. ??Pat dry. ??Apply Skin- Prep to periwound. ??Apply Aquacel Ag to wound bed; cut to size of wound. ??Cover with gauze and lightly wrapped with Ismael. ??Apply Tubigrip as prescribed ??every other day ??Yes Code Status: ?? Full Resuscitation Condition: Poor Discharge ?04/13/23 11:33:00 EDT Discharge Prescriptions ?ePrescribed, ??04/13/23 11:33:00 EDT Home Health Face to Face ^HomeHealthFTF Results Discharge Labs BLOOD COUNT & DIFF WBC 5.6 k/mm3 ()?? 04/10/2023 01:47 RBC 3.87 m/mm3 (Low)?? 04/10/2023 01:47 Hgb 10.5 Gm/dL (Low)?? 04/10/2023 01:47 Hct 33.2 % (Low)?? 04/10/2023 01:47 MCV 85.8 femtoliters ()?? 04/10/2023 01:47 MCH 27.1 pg ()?? 04/10/2023 01:47 MCHC 31.6 g/dL (Low)?? 04/10/2023 01:47 Platelet Count 100 k/mm3 (Low)?? 04/10/2023 01:47 RDW-SD 45.8 femtoliters ()?? 04/10/2023 01:47 MPV 10.1 femtoliters ()?? 04/10/2023 01:47 Nucleated RBC (Automated) 0.0 #/100 WBC'S ()?? 04/10/2023 01:47 Abs. NRBC 0.0 k/mm3 ()?? 04/10/2023 01:47 Abs. Neut 5.0 k/mm3 ()?? 03/31/2023 12:40 Abs. Lymph 1.1 k/mm3 ()?? 03/31/2023 12:40 Abs. Sussex 1.1 k/mm3 ()?? 03/31/2023 12:40 Abs. Eo 0.2 k/mm3 ()?? 03/31/2023 12:40 Abs. Baso 0.0 k/mm3 ()?? 03/31/2023 12:40 Neut % 67.0 % ()?? 03/31/2023 12:40 Lymph % 15.1 % ()?? 03/31/2023 12:40 Sussex % 14.7 % (High)?? 03/31/2023 12:40 Eos % 2.3 % ()?? 03/31/2023 12:40 Baso % 0.5 % ()?? 03/31/2023 12:40 Imm Gran 0.4 % ()?? 03/31/2023 12:40 Abs. Imm Gran 0.0 k/mm3 ()?? 03/31/2023 12:40 ?? CARDIAC CK, Total 491 units/L (High)?? 04/01/2023 06:26 ? CHEM GENERAL Sodium 135 mmol/L ()?? 04/10/2023 01:47 Potassium 4.3 mmol/L ()?? 04/10/2023 01:47 Chloride 104 mmol/L ()?? 04/10/2023 01:47 Bicarbonate Level 25 mmol/L ()?? 04/10/2023 01:47 Anion Gap 6 ()?? 04/10/2023 01:47 Glucose Level 113 mg/dL (High)?? 04/01/2023 06:26 Hemoglobin A1C (Monitoring) 4.8 % ()?? 04/02/2023 11:39 BUN 28 mg/dL (High)?? 04/10/2023 01:47 Creatinine-Blood 1.0 mg/dL ()?? 04/10/2023 01:47 Estimated GFR Creatinine 85 ML/MIN/1.73 M2 ()?? 04/10/2023 01:47 Calcium 8.3 mg/dL (Low)?? 04/01/2023 06:26 Magnesium 1.8 mg/dL ()?? 04/01/2023 06:26 Lactate 1.0 mmol/L ()?? 03/31/2023 12:40 C-Reactive Protein 3.4 mg/dL (High)?? 03/31/2023 12:40 ?? HEME OTHER Sed Rate 35 mm/hr (High)?? 03/31/2023 12:40 ? UA/URINALYSIS Appear/Color, Urine YELLOW ()?? 04/01/2023 06:33 Clarity CLEAR ()?? 04/01/2023 06:33 Specific Thebes, Urine 1.050 (High)?? 04/01/2023 06:33 pH, Urine 5.5 ()?? 04/01/2023 06:33 Albumin, Urine NEGATIVE ()?? 04/01/2023 06:33 Glucose, Urine NEGATIVE ()?? 04/01/2023 06:33 Ketones, Urine 1+ (Abnormal)?? 04/01/2023 06:33 Bilirubin, Urine NEGATIVE ()?? 04/01/2023 06:33 Hemoglobin, Urine NEGATIVE ()?? 04/01/2023 06:33 Nitrite, Urine NEGATIVE ()?? 04/01/2023 06:33 Leukocyte, Urine NEGATIVE ()?? 04/01/2023 06:33 Urobilinogen 2 mg/dL (Abnormal)?? 04/01/2023 06:33 WBC's, Urine <1 /HPF ()?? 04/01/2023 06:33 RBC's, Urine 2 /HPF ()?? 04/01/2023 06:33 Squamous Epith <1 /HPF ()?? 04/01/2023 06:33 Culture Indication CULTURE NOT INDICATED ()?? 04/01/2023 06:33 ?? URINE OTHER Malb/Creat Ratio 20.4 mg/Gm (High)?? 04/01/2023 06:33 Urine Creat For Micro Alb 79.5 mg/dL ()?? 04/01/2023 06:33 Micro-Albumin 16.0 mg/L ()?? 04/01/2023 06:33 Est Creatinine Clearance 72.42 mL/min ()?? 04/10/2023 02:50 ?? VIROLOGY COVID-19 by RT-PCR NEGATIVE ()?? 03/31/2023 13:41 ? Microbiology ?? Blood Culture?? Completed?? Source: Blood Body Site: ?? Collected Dt/Tm: 03/31/2023 12:27 Last Updated Dt/Tm: 03/31/2023 12:27 ?SPECIMEN DESCRIPTION : BLOOD ??LEFT HANDSPECIAL REQUESTS : NONECULTURE : NO GROWTH 5 DAYS.REPORT STATUS : FINAL 04/05/2023 Blood Culture #2?? Completed?? Source: Blood Body Site: ?? Collected Dt/Tm: 03/31/2023 12:27 Last Updated Dt/Tm: 03/31/2023 12:27 ?SPECIMEN DESCRIPTION : BLOOD ??R ACSPECIAL REQUESTS : NONECULTURE : NO GROWTH 5 DAYS.REPORT STATUS : FINAL 04/05/2023 ? Imaging(s) ?MRI Thoracic Spine W+W/O Contrast ?? 03/31/2023 15:46??by Rosibel Ingram MD ?IMPRESSION: 1. Edema associated with the left posterior medial 10th and 11th ribs immediately adjacent to the costovertebral junction, with apparent fracture lines at these sites (more medial to the chronic fractures in the posterior left 10th and 11th ribs seen on CT). Adjacent paraspinal edema and enhancement is likely reactive to recent fracture. However, given risk factors for infection, suggest correlation with inflammatory markers and follow-up to ensure resolution and exclude costovertebral joint pathology. 2. Mild superior endplate compression deformity of T3 and T4. There is trace edema within Schmorl'snodes at these levels, but no edema in the adjacent marrow to suggest acute fracture. No subluxation. 3. No epidural phlegmon/abscess, discitis/osteomyelitis, high-grade stenosis, or other acute abnormality of the thoracic spine. ?Other Image ?EKG showing normal sinus rhythm with a heart rate of 74 some nonspecific T wave changes. QTc prolonged at 486 ms. ? 40??minutes spent on discharge * Dutch Lawler MD: PERFORM Event Display: Discharge/Transfer Note Hospital Authored Date: [id number] Patient seen and examined at the bedside on the day of discharge on 04/13/2023. Chart reviewed.?? Discussed with Terrie Barreto and agreed with discharge plan.?? Leg wound??right foot cellulitis improving. ??Discharged with doxycycline. ??Continue wound care. 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 Constitutional: Alert, in no distress. Mental Status: Oriented to person, place and time. Head: Normocephalic. Respiratory: Clear to auscultation. No wheezing, rales or rhonchi. Cardiovascular: S1 S2 regular. No murmurs, rubs or gallops. Gastrointestinal: Abdomen soft, non-tender, non-distended. Normal bowel sounds. Neurologic: Cranial nerves II-XII grossly intact. No focal neurological deficits. Extremities:??Wound on dorsum of right foot.?? Surrounding erythema improving. Psychiatric: Normal mood and affect * Candace Julio RN: PERFORM Event Display: Patient Education/Instruction Authored Date: [id number] Inpatient Adult Discharge Instructions [address] [address] Name: RENEE CORNELIUS : 1955 Visit: 03/31/2023 17:50:00 Current Date: 04/13/2023 12:56 Account: [id number] Inpatient Adult Discharge Instructions We would like [...] and their families. Surveys are administered by [employer] ?? If further treatment with your primary care physician or another doctor is recommended, it is important for you to keep the appointment. Call your primary care physician or return to the Emergency Department immediately if your condition worsens, fails to improve, or new symptoms develop. If you need to find a doctor, you can call [facility] for a referral at [phone] or toll free at [email or web address] ([phone]) or log in to [email or web address].. ?? [facility], in keeping with [facility] guidance, no longer requires face masks for staff, patientsor visitors in most situations. Similiar to time spent indoors at other locations, there is the chance that you were exposed to repiratory viruses during your time with us (such as flu or COVID-19). If you develop symptoms concerning for a viral respiratory infection, please seek testing (and treatment if indicated) from your medical provider or home test kit. ?? You can view and manage your care through the patient portal or by using a health care paul of your choosing. [employer] is a website that allows you to securely view your medical information including your hospital discharge summary, office visit summaries, medications and follow-up visits. You can also request appointments, renew medications, and request access to your medical information using a health care paul of your choosing, or just ask a question. You can enroll at [email or web address] or register during your next office visit. You have been discharged from [facility], Patient Care Unit: S3. If you have any questions regarding these instructions after you leave, please call us and we will be happy to assist you. [facility] Your Care Team Attending Physician Bucky MCKEON, Dutch Consulting Providers Mel MCKEON, Arlet Discharging Providers Terrie Barreto Reason for Admission Coming from [facility], SP fall, hit chest on curb, fractured T3/T4. + Fentanyl, opiods, cocaine. Wound to R foot. Homeless. AMS - unsure of baseline. Your Diagnosis Thoracic compression fracture Heroin abuse Fall Leg wound, right Rhabdomyolysis Non-pressure chronic ulcer of right lower leg with fat layer exposed Leg edema Peripheral artery disease Non-pressure chronic ulcer of other part of right foot with fat layer exposed Tests Performed Below is a partial list of the tests performed during your hospitalization. You may have had other tests and procedures not included in this list. Please discuss all test results with your provider. Basic Metabolic Panel BUN C-REACTIVE PROTEIN CBC CBC w/ Differential COVID-19 (NOVEL CORONAVIRUS), PCR CPK Total Only Creatinine Electrolytes HEMOGLOBIN A1C Lactate Level Lytes Magnesium Level SEDIMENTATION RATE,AUTOMATED UA W/Reflex Culture & Renal URINARY MICROALBUMIN MRI Thoracic Spine W+W/O Contrast Primary Care Provider Brandee Grey MD Advance Directive Health Care Proxy on File Yes - Health Care Proxy Discharge Vitals Temperature: 98.9 DegF Height: 175 cm Pulse Rate:??96 bpm??High Weight: 81 kg Respiratory Rate: 18 br/min Body Mass Index:??26.45 kg/m2??High Systolic Blood Pressure: 120 mm Hg Body surface area: 1.98 Diastolic Blood Pressure: 64 mm Hg ?? Oxygen Saturation: 96 % ?? Studies Pending All tests and labs ordered during this hospital stay have been completed unless listed below. Please discuss all pending results with your provider listed above in these instructions. ?? Add On Lab Order What to do next Instructions From Your Doctor Diagnosis: -Compression fracture -Right lower extremity wound, cellulitis ?? Important results/instructions: -Compression fracture:??You were seen by neurosurgery, no surgical intervention was needed.?? You can take Tylenol as needed for pain -Right lower extremity wound, cellulitis:??You are being discharged on a course of antibiotics to cover for possible infection in your foot wound.?? It is very important that you follow-up with vascular surgery for??your right leg as??impaired perfusion well??results and recurrent infections as youhave already noticed.?? We have given you wound care supplies??to do dressing changes every other day. He will cleanse the area with normal saline, pat dry, apply Aquacel AG to the wound (cut to the size of wound), cover with gauze and lightly wrapped with Ismael.?? Please return to the emergency department if you notice any??fever, chills,??odor of the wound, increased drainage or purulence,??wors ening swelling, redness??or pain.?? It is very important you keep the area clean and dry??to prevent worsening infection. ?? Medication changes: -Doxycycline??100 mg twice daily??for 6 days ? It was a pleasure caring for you, I am glad you are feeling better! Please follow up with your PCP in the next 1-2 weeks for a post-hospitalization follow up Discharge Orders Diet:??Regular Diet Activity:??Ambulate with assistance 3 times a day unless otherwise specified Wound Care:??Wound Site: RLE Clean with normal saline. Pat dry. Apply Skin-Prep to periwound. ApplyAquacel Ag to wound bed; cut to size of wound. Cover with gauze and lightly wrapped with Ismael. Apply Tubigrip as prescribed every other day Yes Code Status:?? Full Resuscitation Condition:??Poor You Need to Schedule the Following Appointments Follow Up with??Priest GRAFF, Alfonso Abarca When:??Within 1 month Why: Please call to arrange vascular surgery follow-up for your right lower extremity.?? Any provider is okay Where: [facility], [address] [facility] [place] [address]- Follow Up with??Brandee Grey MD When:??Within Within two weeks Where: [address] [place] [address]- Discharge Medications CORNELIUSRENEE CASTILLO :1955 Visit Date:03/31/2023 Medications: Please continue your medications until treatment is completed or stopped by your provider. Medications not listed below should be discontinued. Discuss any questions related to medications with your provider. What How Much When Instructions Next Dose New Doxycycline (doxycycline monohydrate 100 mg oral tablet) 1 tab(s) Oral Every 12 hours Duration: 6 Days Pickup at [place] [address] 9/7 PM Changed Methadone 60 Milligram Oral Daily 9/8 AM Unchanged Fluoxetine (FLUoxetine 40 mg oral capsule) 1 capsule Oral Daily 9/8 AM Unchanged HydrOXYzine (hydrOXYzine hydrochloride 25 mg oral tablet) 1 tab(s) Oral 4 times a day as needed for for anxiety as needed Unchanged Prazosin (prazosin 1 mg oral capsule) 1 capsule Oral Daily at Bedtime 04/13 Bedtime Pharmacy Information [facility] 3: [address], [place] [id number] [phone] Test Results Below is a partial list of the most recent Laboratory test results done prior to this discharge. You may have had other tests and procedures not included in this list. Please discuss all test resultswith your provider. Est Creatinine Clearance - 72.42 mL/min (04/10/2023) Basic Metabolic Panel (04/01/2023) ???Sodium - 140 mmol/L???Potassium - 3.7 mmol/L???Chloride - 108 mmol/L???Bicarbonate Level - 23 mmol/L???Anion Gap - 9???Glucose Level - 113 mg/dL???BUN - 27 mg/dL???Creatinine-Blood - 0.9 mg/dL???Estimated GFR Creatinine - 95 ML/MIN/1.73 M2???Calcium - 8.3 mg/dL BUN (04/10/2023) ???BUN - 28 mg/dL C-REACTIVE PROTEIN (03/31/2023) ???C-Reactive Protein - 3.4 mg/dL CBC (04/10/2023) ???WBC - 5.6 k/mm3???RBC - 3.87 m/mm3???Hgb - 10.5 Gm/dL???Hct - 33.2 %???MCV - 85.8 femtoliters???MCH - 27.1 pg???MCHC - 31.6 g/dL???Platelet Count - 100 k/mm3???RDW-SD - 45.8 femtoliters???MPV - 10.1 femtoliters???Nucleated RBC (Automated) - 0.0 #/100 WBC'S???Abs. NRBC - 0.0 k/mm3 CBC w/ Differential (03/31/2023) ???WBC - 7.5 k/mm3???RBC - 3.67 m/mm3???Hgb - 10.2 Gm/dL???Hct - 31.7 %???MCV - 86.4 femtoliters???MCH - 27.8 pg???MCHC - 32.2 g/dL???Platelet Count - 123 k/mm3???RDW-SD - 47.3 femtoliters???MPV - 10.1 femtoliters???Nucleated RBC (Automated) - 0.0 #/100 WBC'S???Abs. NRBC - 0.0 k/mm3???Abs. Neut - 5.0 k/mm3???Abs. Lymph - 1.1 k/mm3???Abs. Sussex - 1.1 k/mm3???Abs. Eo - 0.2 k/mm3???Abs. Baso - 0.0 k/mm3???Neut % - 67.0 %???Lymph % - 15.1 %???Sussex % - 14.7 %???Eos % - 2.3 %???Baso % - 0.5 %???Imm Gran - 0.4 %???Abs. Imm Gran - 0.0 k/mm3 COVID-19 (NOVEL CORONAVIRUS), PCR (03/31/2023) ???COVID-19 by RT-PCR - NEGATIVE CPK Total Only (04/01/2023) ???CK, Total - 491 units/L Creatinine (04/10/2023) ???Creatinine-Blood - 1.0 mg/dL???Estimated GFR Creatinine - 85 ML/MIN/1.73 M2 Electrolytes (04/02/2023) ???Sodium - 139 mmol/L???Potassium - 3.9 mmol/L???Chloride - 104 mmol/L???Bicarbonate Level - 26 mmol/L???Anion Gap - 9 HEMOGLOBIN A1C (04/02/2023) ???Hemoglobin A1C (Monitoring) - 4.8 % Lactate Level (03/31/2023) ???Lactate - 1.0 mmol/L Lytes (04/10/2023) ???Sodium - 135 mmol/L???Potassium - 4.3 mmol/L???Chloride - 104 mmol/L???Bicarbonate Level - 25 mmol/L???Anion Gap - 6 Magnesium Level (04/01/2023) ???Magnesium - 1.8 mg/dL SEDIMENTATION RATE,AUTOMATED (03/31/2023) ???Sed Rate - 35 mm/hr UA W/Reflex Culture & Renal (04/01/2023) ???Appear/Color, Urine - YELLOW???Clarity - CLEAR???Specific Thebes, Urine - 1.050???pH, Urine - 5.5???Albumin, Urine - NEGATIVE???Glucose, Urine - NEGATIVE???Ketones, Urine - 1+???Bilirubin, Urine - NEGATIVE???Hemoglobin, Urine - NEGATIVE???Nitrite, Urine - NEGATIVE???Leukocyte, Urine - NEGATIVE?? ?Urobilinogen - 2 mg/dL? ?WBC's, Urine - <1 /HPF? ?RBC's, Urine - 2 /HPF? ?Squamous Epith - <1 /HPF???Culture Indication - CULTURE NOT INDICATED URINARY MICROALBUMIN (04/01/2023) ???Malb/Creat Ratio - 20.4 mg/Gm???Urine Creat For Micro Alb - 79.5 mg/dL???Micro-Albumin - 16.0 mg/L Allergies (NKA means No Known Allergies) traZODone Problems Active Problems??(7) ZAY (acute kidney injury)?? COVID-19?? CANDI (generalized anxiety disorder)?? Leukocytosis?? Lower extremity cellulitis?? MDD (major depressive disorder)?? Sepsis?? Education Materials Below is the list of Educational Leaflet Providered with your Discharge Instructions. Doxycycline Oral Tablet?? Valuables and Belongings I fully understand and agree that [facility] accepts no responsibility for all [...] Review of Valuable and Belonging List: With patient Disposition of Belongings: Other: sent to d/c unit w/patient Date for Pt to Sign Valuables/Belongings: 04/13/23 11:53:00 ?? Other Discharge Information ?? Wound Assessment?? Wound Assessment?? Wound Location I: Leg, right lower Wound Type I: Unknown Etiology Wound I, Present on Admission: Yes Wound Location II: Foot, right Wound Type II: Arterial/Venous Wound II, Present on Admission: Yes ? Case Management Discharge Plan?? Discharge Plan?? Discharge Level of Care at Discharge: Home/Halfway/Foster Care ?? Pulmonary Rehab Status?? Pulmonary Rehab Discharge Status?? [...] are strongly encouraged to quit. Please call [employer] [facility] at [phone] or [phone] ([phone]) or log in to [email or web address] for referrals to smoking cessation programs. ?? 466 Suicide & Crisis Lifeline is available 27/02 if you or someone you know needs to find a reason to keep living. By calling 242 you'll be connected to a skilled, trained counselor at a crisis center in your area. INPATIENT DISCHARGE INSTRUCTIONS SIGNATURE PAGE RENEE CORNELIUS Location:[facility] Registration Date and Time:03/31/2023 17:50 EDT Primary Care Physician: Brandee Grey MD, Attending Physician: Dutch Lawler MD, I RENEE CORNELIUS, have received the above patient education materials/instructions and have verbalized understanding. If ambulance or transport services are being used I further acknowledge being given a choice of service. ?? If you need to contact me, please call me at this number: . Patient/Psychology Instructor Name: Patient/Psychology Instructor Signature: Relationship to Patient: Witness Name/Signature: Date: * Terrie Barreto: PERFORM Event Display: Patient Education Leaflets Authored Date: [id number] Doxycycline Oral Tablet ?? [id number] Doxycycline Oral Tablet Brands: Acticlate, Adoxa, Avidoxy, Targadox Usos Para tratar jurgen infecci??n bacteriana. ?? Instrucciones [place] el medicamento con 250 ml (1 taza) de agua. [place] el medicamento con el est??mansi vac??o: 1 hora antes de comer o 2 horas despu??s de comer. Si??ntese, o p??rese derecho por 30 minutos despu??s de girish el medicamento. No se acueste. Mantenga el medicamento a temperatura ambiente, alejado braydon y el calor. No tome dixie??n anti??cido ni vitamina que contenga magnesio, aluminio, calcio o adarsh 2 horas antes o 2 horas despu??s de girish whitney medicamento. Whitney medicamento puede hacerle sensible al kip. Use crema solar o ropa protectora cuando est?? expuesto al kip. Si olvida girish jurgen dosis a tiempo, t??ligia poon pronto lo recuerde. Si es veronica la hora de la dosis siguiente, no tome la dosis olvidada. Vuelva al horario normal. No tome dos dosis al mismo tiempo. Las interacciones con otros medicamentos pueden cambiar la forma en que act??an los medicamentos o aumentar el riesgo de presentar efectos secundarios. Informe a citlaly profesionales sanitarios acerca de todos los medicamentos que usa. [place] incluye medicamentos con y sin receta m??dica, vitaminas y medicamentos a base de hierbas. Hable con moy m??dico o farmac??utico antes de empezar o dejar de usar cualquier medicamento. Siga usando whitney medicamento cheryl el n??january total de d??as que se lo recetaron. No deje de usarel medicamento, incluso si empieza a sentirse mejor. Whitney medicamento puede causar cambios permanentes en el color de los dientes de los ni??os. ?? Precauciones Informe a moy m??dico y a moy farmac??utico si alguna vez shane tenido jurgen reacci??n al??rgica a un medicamento. No use el medicamento m??s veces de lo indicado. Llame al m??dico si observa alg??n cambio en la cantidad de orina o si ??sta es oscura. D??gale a moy m??dico si tiene diarrea moderada a intensa mientras usa whitney medicamento. No use medicamentos de venta bhumi (sin receta) para tratar la diarrea. Whitney medicamento pasa a la leche materna. Consulte a moy m??dico antes de amamantar. Whitney medicamento puede causar da??os a un beb?? en el ??tero. Si queda embarazada mientras usa estemedicamento, av??vaibhav a moy m??dico de inmediato. El m??dico puede cambiar el medicamento por otro diferente. No comparta whitney medicamento con otras personas a quienes no se les recet??. ?? Efectos Secundarios La siguiente es jurgen lista de algunos efectos secundarios comunes de whitney medicamento. Hable con el m??dico para saber qu?? debe hacer en mahendra de tener estos u otros efectos secundarios. ??? diarrea ??? n??useas y v??mitos ??? indigesti??n estomacal o dolor abdominal ??? infecci??n porc??ndida en la boca ??? picor en la vagina o infecci??n vaginal por c??ndida Llame al m??dico u obtenga atenci??n m??dica de inmediato si nota cualquiera de estos efectos secundarios m??s graves: ??? hinchaz??n en el denise o la garganta ??? dificultad para tragar ??? visi??n borrosa o cambios en la visi??n Algunas personas podr??an tener reacciones al??rgicas a whitney medicamento. Entre los s??ntomas pueden incluirse: dificultad para respirar, erupci??n en la piel, comez??n, hinchaz??n o mareos intensos.Si nota algunos de estos s??ntomas, busque asistencia m??dica r??pidamente. ?? Extra Hable con moy m??dico, enfermero o farmac??utico si tiene alguna pregunta acerca de whitney medicamento. ?? [email or web address] NOTA IMPORTANTE: En whitney documento hay jurgen explicaci??n breve sobre c??mo usar el medicamento, perono incluye todo lo que hay que saber acerca del medicamento. Moy m??dico o moy farmac??utico podr??a suministrarle otros documentos acerca de moy medicamento. Comun??quese con ellos si tiene alguna pregunta. Siga siempre citlaly consejos. Jurgen descripci??n m??s completa de whitney medicamento est?? disponibleen ingl??s. Escanee whitney c??digo en moy tel??fono inteligente o en moy tableta, o use la direcci??n web que aparece a continuaci??n. Tambi??n puede pedirle a moy farmac??utico jurgen copia impresa. Si tiene alguna pregunta, h??gasela a moy farmac??utico. La exhibici??n y el uso de esta informaci??n sobre f??rmacos est?? sujeta a los T??rminos de Uso. Copyright(c) 2022 [employer]. ?? 7832-5406 [employer]. All rights reserved. This information is not intended as a substitute for professional medical care. Always follow your healthcare professional's instructions. ?? Patient Care team information Care Team Personnel Name: So Ayala RN Position: [facility] RN Member Role: Primary Care Nurse Name: Aman Salcedo RN Position: [facility] RN Member Role: Primary Care Nurse Name: Radha Ayers NP Position: [facility] Associate Professional Member Role: Primary Care Nurse Address: Address: [address] [place] [id number] Name: Nehal Matthews RN Position: [facility] RN Member Role: Primary Care Nurse Name: Rita Aparicio RN Position: [facility] RN Member Role: Primary Care Nurse Name: Aan Armendariz RN Position: [facility] AMB Nurse Member Role: Primary Care Nurse Name: Cristobal Alvarez RN Position: [facility] SN RN Member Role: Primary Care Nurse Name: Josselyn Gama RN Position: [facility] RN Member Role: Primary Care Nurse Name: Daniele Medina RN Position: [facility] RN Member Role: Primary Care Nurse Name: La Lucas Position: [facility] RN Member Role: Primary Care Nurse Name: Lisset Cornelius RN Position: [facility] RN Member Role: Primary Care Nurse Name: Chidi Ventura RN Position: [facility] RN Member Role: Primary Care Nurse Name: Kathryn Betancur RN Position: [facility] RN Member Role: Primary Care Nurse Name: Elis Chaparro RN Position: [facility] RN Member Role: Primary Care Nurse Name: Olivia Tejada RN Position: [facility] RN Member Role: Primary Care Nurse Name: Faye Kim LPN Position: [facility] RN Member Role: Primary Care Nurse Name: Vandana Soliz RN Position: [facility] RN Member Role: Primary Care Nurse Name: Brandee Grey MD Position: Reference Physician Member Role: PCP Address: Address: [address] [place] [address], [place] [address]- Name: Dari Oliva RN Position: [facility] RN Member Role: Primary Care Nurse Name: Sonya CARRILLO Attending Position: [facility] ED Medicine MD Name: Yamini Moran RN Position: [facility] ED RN W/OE and Tasks Member Role: Patient Care Provider Name: Earline Ellison Position: [facility] ED TA [facility] Member Role: Microbiology Lab Analyst Name: Nhan Goyal Position: [facility] ED OA Charge Member Role: ED Associate Care Team Related Persons Name: DEL TOROREVA Address: home [address] [place] [address] Name: SHONA TEJADA Address: home [address] [place] [address]
--- NOTE | 2023-04-14 20:01 | ED.OVERDOSE ---
HPI - Overdose General Chief Complaint: Overdose Stated Complaint: OD, 4mg narcan given Time Seen by Provider: 04/14/23 20:00 Source: patient Mode of arrival: EMS Limitations: no limitations History of Present Illness HPI Narrative: Patient comes to the emergency room complaining of a drug overdose. Patient came in screaming, initially refusing vitals but eventually accepted. Uncooperative, belligerent. Patient denies suicidal or homicidal ideation. Related Data Home Medications Medication Instructions Recorded Confirmed methadone 10 mg/mL oral 45 mg PO DAILY 04/11/22 11/03/22 concentrate (Methadone Intensol) diphenhydramine HCl 25 mg capsule 2 cap PO BEDTIME 07/18/22 12/04/22 (Benadryl) fluoxetine 40 mg capsule 1 cap PO DAILY 07/18/22 12/04/22 prazosin 1 mg capsule 1 cap PO BEDTIME 07/18/22 12/04/22 Previous Rx's Medication Instructions Recorded walker (Ultra-Light Rollator misc) #1 ea 04/15/22 cephalexin 500 mg capsule 500 mg PO Q12H #14 caps 10/29/22 doxycycline hyclate 100 mg capsule 100 mg PO BID #14 caps 10/29/22 ibuprofen 600 mg tablet 600 mg PO Q6H PRN pain #30 tabs 12/04/22 Allergies Allergy/AdvReac Type Severity Reaction Status Date / Time trazodone [TRAZODONE] Allergy Intermediate RESTLESS Verified 11/22/22 11:31 LEGS Review of Systems Review of Systems: Constitutional : No Weight loss, No Fever, No Chills, No Night Sweats, No Fatigue, No Malaise ENT/Mouth : No Hearing loss, No Ear Pain, No Nasal Congestion, No Sinus Pain, No Hoarseness, No sore throat, No Rhinorrhea, No Swallowing Difficulty Eyes: No Eye Pain, No Swelling, No Redness, No Foreign Body, No Discharge, No Vision Changes Cardiovascular : No Chest Pain, No SOB, No Dyspnea on Exertion, No Orthopnea, No Edema, No Palpitations Respiratory : No Cough, No Sputum, No Wheezing, No Smoke Exposure, No Dyspnea Gastrointestinal : No Nausea, No Vomiting, No Diarrhea, No Constipation, No abdominal Pain, No Hematochezia, No Melena Genitourinary : no irregular bleeding, No Dysuria, No Urinary Frequency, No Hematuria, No Urinary Incontinence, No Urgency, No Flank Pain, No Urinary Flow Changes, No Hesitancy Musculoskeletal : No joint pain, No Myalgias, No Joint Swelling Skin : No Skin Lesions, No rash Neuro : No Weakness, No Numbness, No Paresthesias, No Loss of Consciousness, No Dizziness, No Headache Psych : No Anxiety/Panic, No Depression, No SI/HI/AH/VH, admits to heroin abuse Heme/Lymph: No Bruising, No Bleeding,No Lymphadenopathy Endocrine : No Polyuria, No Polydipsia, No Temperature Intolerance [facility] Past Medical History Medical History Physical deconditioning Former smoker Opiate dependence 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 Cellulitis Infected wound Varicose veins of right lower extremity with inflammation Opioid use disorder Chronic cutaneous venous stasis ulcer Anemia Tobacco dependence Polysubstance abuse Hepatitis C Venous stasis ulcer Depression Cirrhosis Surgical History H/O hernia repair Family History Family History Mother CAD (coronary artery disease) ESRD (end stage renal disease) Brother Liver failure Social History Social History Household Members: Other Household Members Other:: Currently residing in a rehab facility Housing: Homeless Housing Other:: Currently residing in a rehab facility Do you presently have visiting nurse or other home services: Yes Unable to assess alcohol history related to: Unknown Alcohol intake: former Patient Tobacco Use Status: Former Tobacco user Tobacco use type: Cigarette Cigarettes Per Day: 2 Years Smoked: 40 e-Cigarette/Vaping Use: Never Used Second Hand Smoke Exposure: Yes Substance Use Type: Heroin Advance Directives: Yes Advance Directives on File: Yes Advance Directives Date on File: 02/11/21 service: No Current occupational status: disabled Physical Exam Vital Signs: Vital Signs: Last Vital Signs Temp 98.3 F 04/14/23 19:41 Pulse 86 04/14/23 19:41 Resp 16 04/14/23 19:41 Pulse Ox 99 04/14/23 19:41 O2 Del Method Room Air 04/14/23 19:41 BMI result Body Mass Index 22.8 Const: Other: Appearance: Alert. Oriented X3. No acute distress. Eyes: Pupils equal, round and reactive to light. ENT: Pharynx normal. Neck: Normal inspection. Neck supple. No lymph nodes noted. No crepitus CVS: Normal heart rate and rhythm. Pulses normal. Normal S1 and S2 Respiratory: No respiratory distress. Breath sounds normal. No Wheezing. No rales Abdomen: Soft and nontender. No rigidity. No distention. Skin: Skin warm and dry. Normal skin color. Normal skin turgor. Extremities: No lower extremity edema. No Lacerations. No Rash Neuro: Oriented X 3. No motor deficit. No sensory deficit. Moving all extremities. No slurred speech. CN 2 through 12 grossly intact. Patient walking , steady gait Psych: Belligerent, uncooperative Course Course Course Narrative: -patient is awake, alert and oriented. Aggressive, belligerent. -discussed with the patient that he is welcome to stay a little bit longer if he stops being aggressive and belligerent to nurse's otherwise he is ready for discharge. Patient agreeable to behave well. -patient declined sude eval/care/ detox -on discharge, patient was sent home with home Narcan Medical Decision Making Differential Diagnosis Differential Diagnoses: The differential diagnosis associated with the presentation includes (Accidental overdose, substance abuse, alcohol abuse) Admission/Observation Consideration of admission/observation: Escalation of care including admission/observation considered (Patient will be under observation in the ED until discharge.) Discharge Plan Discharge Clinical Impression: Drug overdose Patient Disposition: Home, Self-Care Instructions: Adult Overdose (ED) Additional Instructions: Please follow-up with your primary care physician tomorrow. If you have any worsening or new symptoms, please return to the emergency room or call 911 Prescriptions: No Action fluoxetine 40 mg capsule 1 cap PO DAILY prazosin 1 mg capsule 1 cap PO BEDTIME diphenhydramine HCl [Benadryl] 25 mg capsule 2 cap PO BEDTIME methadone [Methadone Intensol] 10 mg/mL Concentrate 45 mg PO DAILY (DME) Ultra-Light Rollator Misc See Rx Instructions .Route Qty: 1 0RF Rx Instructions: As directed ibuprofen 600 mg tablet 600 mg PO Q6H PRN (Reason: pain) Qty: 30 0RF cephalexin 500 mg capsule 500 mg PO Q12H Qty: 14 0RF doxycycline hyclate 100 mg capsule 100 mg PO BID Qty: 14 0RF
[2023-04-14] MEDS: Naloxone HCl Nasal TAKE HOME 4 MG SPRAY 8 MG NOSTRILALT (20:17)
--- NOTE | 2023-04-14 20:20 | PC.NURSE ---
Pt ambulated to bathroom and back to stretcher. Pt yelling, refusing blood work and vitals. Pt began spitting on the floor and hospital equipment. at bedside and discharge patient if he continued yelling at staff. Pt given Narcan, refused to sign discharge paperwork. Pt escorted out by security.
--- NOTE | 2023-04-14 20:26 | MHC.RECOVSUP ---
? Reason for consult:OD o? Current location:ED04? o? Identified substance use concern:? -? Overdose ? Intervention:N/A ? Plan:N/A ? Additional information:RC didn't speak with pt as he was irate and escorted out by security.
== END 2023-04-14 20:20 | disposition home or self-care (01) ==
PROVIDERS: Emergency Provider Emergency Medicine
DX: T50.901A Poisoning by unspecified drugs, medicaments and biological substances, accidental (unintentional), initial encounter (principal); F11.20 Opioid dependence, uncomplicated; Y92.9 Unspecified place or not applicable; F91.8 Other conduct disorders; Z87.891 Personal history of nicotine dependence
CPT/HCPCS: 99282